=== PATIENT | male | born 1955 | race Caucasian/White ===

== ENCOUNTER 2020-12-12 11:15 | Inpatient (IN) | payer OTHER, SELFPAY ==
--- NOTE | ~2020-12-12 | XR_ITS ---
EXAMINATION: XR FOOT, LEFT CLINICAL INFORMATION: 4 torn. COMPARISON: None TECHNIQUE: AP, lateral, and oblique views of the left foot. FINDINGS: There is moderate hallux valgus deformity first digit with subluxation. There is a lucency and periosteal thickening and periosteal erosion dorsal distal first metatarsal with moderate soft tissue swelling suggestive of osteomyelitis. There is diffuse periosteal thickening involving the entire first metatarsal bone as well. There are small calcaneal heel spur. Rest of visualized left foot is unremarkable. XR/XR foot LT 2V IMPRESSION: Extremely suspicious of osteomyelitis left distal first metatarsal with moderate soft tissue swelling. There is hallux valgus deformity with subluxation first MTP joint.
--- NOTE | ~2020-12-12 | XR_ITS ---
EXAMINATION: XR CHEST CLINICAL INFORMATION: Fluid overload COMPARISON: None TECHNIQUE: Frontal portable view of the chest was obtained. 4:43 PM FINDINGS: Status post median sternotomy. Heart size is normal. Cardiac mediastinal contours are normal. Lungs are normally aerated. No pulmonary vascular congestion. There is no pleural effusion. There is no pneumothorax. Orthopedic anchors in the left humeral head. Multilevel degenerative spondylosis spine. XR/XR chest 1V IMPRESSION: No acute abnormality of the chest.
[2020-12-12 11:26] VITALS: BP 161/81; PULSE 60; RESP 18; TEMP 36.8; O2SAT 100; BMI 19.6
[2020-12-12 11:46] LABS: Glucose, Whole Blood 326 mg/dL (60-115)
[2020-12-12 14:26] VITALS: BP 157/81; PULSE 57; RESP 16; O2SAT 100
--- NOTE | 2020-12-12 14:32 | ED.GENADULT ---
HPI - General Adult General Chief complaint: Extremity Injury, Lower Stated complaint: foot olser Time Seen by Provider: 12/12/20 15:06 Source: patient Mode of arrival: ambulatory Limitations: no limitations History of Present Illness HPI narrative: Patient presents to ED for ulcer on left big toe that has increased in size the past couple of days. Patient states no fever or chills. Patient states increased area of surrounding redness. Related Data Home Medications Medication Instructions Recorded Confirmed aspirin 81 mg tablet,delayed 81 mg PO BEDTIME 12/12/20 12/12/20 release atorvastatin 20 mg tablet 20 mg PO DAILY 12/12/20 12/12/20 blood-glucose meter #1 ea 12/12/20 12/12/20 lancets 28 gauge #100 ea 12/12/20 12/12/20 metoprolol succinate 50 mg 50 mg PO DAILY 12/12/20 12/12/20 tablet,extended release 24 hr multivitamin 1 tab PO DAILY 12/12/20 12/12/20 pen needle, diabetic 31 gauge x #50 ea 12/12/20 12/12/2010/07 Previous Rx's Medication Instructions Recorded insulin glargine 100 unit/mL (3 6 unit SUBCUT BEDTIME 30 Days #1.8 12/12/20 mL) subcutaneous pen ml Allergies Allergy/AdvReac Type Severity Reaction Status Date / Time No Known Allergies Allergy Verified 12/12/20 10:05 Review of Systems Review of Systems: Yes all other systems are reviewed and are negative Constitutional: Constitutional: Reports as per HPI and Reports no additional constitutional complaints Eyes: Eyes: Reports as per HPI and Reports no additional eye complaints ENT: Reports system reviewed and no additional complaints, except as documented and Reports as per HPI Cardiovascular: Cardiovascular: Reports as per HPI and Reports no additional cardiovascular complaints Respiratory: Respiratory: Reports as per HPI and Reports no additional respiratory complaints Gastrointestinal: Gastrointestinal: Reports as per HPI and Reports no additional gastrointestinal complaints Genitourinary: Genitourinary: Reports no additional male genitourinary complaints and Reports as per HPI Musculoskeletal: Musculoskeletal: Reports no additional musculoskeletal complaints Comments: left foot ulcer Neurologic: Reports system reviewed and no additional complaints, except as documented and Reports as per HPI [facility] Past Medical History Medical History Bunion CAD (coronary artery disease) Cataracts, bilateral Diabetes Hearing difficulty Heart attack High cholesterol Hypertension Neuropathy Surgical History H/O heart bypass surgery H/O rotator cuff surgery Social History Social History Alcohol intake: current Alcohol intake frequency: 0-2 drinks per day Smoking Status: Former smoker Advance Directives: No Advance Directives Information Provided: Yes Physical Exam Vital Signs: Vital Signs: Last Vital Signs Temp 98.3 F 12/12/20 11:26 Pulse 57 12/12/20 14:26 Resp 16 12/12/20 14:26 BP 157/81 H 12/12/20 14:26 Pulse Ox 100 12/12/20 14:26 Body Mass Index 19.6 Const: General: cooperative, healthy appearing, comfortable, no acute distress, well developed, alert, awake and Physically active Orientation/consciousness: patient oriented x3 HENMT: Head: Yes normal to inspection, Yes No palpable skull fracture present, Yes normocephalic and Yes atraumatic Eyes: General: appearance normal, both eyes and all related structures Neck: Neck: Yes normal visual inspection, Yes full ROM, Yes no lymphadenopathy, Yes no meningeal signs, Yes trachea midline, Yes supple and No tender Chest: Chest palpation & inspection: normal inspection of the chest and normal palpation of entire chest wall Resp: Effort & Inspection: normal respiratory effort and able to speak in complete sentences Auscultation: clear to auscultation bilaterally Cardio: Jugular venous distension: no JVD Heart sounds: S1 normal heart sound present and S2 normal heart sound present GI: Inspection: Yes normal to inspection and No abdominal wall ecchymosis Palpation (GI): Soft to palpation, not firm, nontender, no guarding and not rigid : General: No CVA tenderness and Yes no CVA tenderness Back/Spine/Pelvis: Back: no CVA tenderness, No CVA tenderness and No back tenderness Skin: Other: Left foot ulcer at big toe with surrounding erythema small yellow drainage and foul odor. pedal pulses intact and neuro exam intact. Neuro: General: patient oriented x3, no meningeal signs and CN's II-XI intact bilaterally Cranial nerves: Yes CN's II-XII intact bilaterally Extrem: General: Yes normal to inspection and Yes full ROM Psych: Appearance: grossly normal, well kempt and not disheveled Course Course Course Narrative: Patient will have labs including x-ray to rule out osteomyelitis. Patient not in any distress Reevaluation(s) Reevaluation #1: X-ray came back positive for osteomyelitis. Patient started antibiotics. Case discussed with hospitalist who states he will come evaluate patient. Reevaluation #2: Patient has elevated ESR CRP. Lactic 2.5. Fluids ordered. Patient evaluated by Dr. Cole. Patient admitted to hospital for osteomyelitis/diabetic foot. Medical Decision Making MDM Narrative Medical decision making narrative: Type osteomyelitis Lab Data Result diagrams: 12/12/20 14:38 12/12/20 14:37 Labs: Lab Results 12/12/20 12/12/20 12/12/20 Range/Units 11:43 14:21 14:37 WBC (4.8-10.8) X10*3/uL RBC (4.60-5.80) X10*6/uL Hgb (14.0-18.0) g/dl Hct (42-52) % MCV (80-98) fL MCH (27.0-33.0) pg MCHC (31.0-36.0) g/dl RDW (11.0-16.0) % Plt Count (160-400) X10*3/uL MPV (9.4-12.4) fL Immature Gran % (Auto) (0.0-0.4) % Neut % (Auto) (45-73) % Lymph % (Auto) (20-40) % [place] % (Auto) (2-11) % Eos % (Auto) (0-4) % Baso % (Auto) (0-2) % Lymph # (Auto) (1.2-4.9) X10*3/uL [place] # (Auto) (0.1-1.2) X10*3/uL Eos # (Auto) (0.0-0.4) X10*3/uL Baso # (Auto) (0.0-0.2) X10*3/uL Abs Immat Gran (auto) (0.00-0.03) X10*3/uL Absolute Neuts (auto) (2.0-8.3) X10*3/uL Absolute Nucleated RBC (0.0-0.012) X10*3/uL Nucleated RBC % (auto) (0.0-0.2) /100WBC ESR 67 H (0-15) MM/HR PT (10.8-13.0) SEC INR (0.9-1.1) APTT (24.1-38.0) SEC Sodium (135-145) mmol/L Potassium (3.3-5.1) mmol/L Chloride (96-108) mmol/L Carbon Dioxide (22-29) mmol/L Anion Gap (12-20) BUN (9-16) mg/dL Creatinine (0.5-1.4) mg/dL Estim Creat Clear Calc Estimated GFR POC Glucose 326 H 346 H (60-115) mg/dL Random Glucose (60-115) mg/dL Lactic Acid (0.5-2.0) mmol/L Calcium (8.4-10.2) mg/dL Total Bilirubin (0.0-1.0) mg/dL AST (5-37) U/L ALT (0-40) U/L Alkaline Phosphatase (39-117) U/L C-Reactive Protein (< or = 0.50) mg/dL Total Protein (6.5-8.0) g/dL Albumin (3.5-5.0) g/dL COVID-19 (AMELIE) (Negative) COVID-19 Clin Com 12/12/20 12/12/20 12/12/20 Range/Units 14:37 14:37 14:37 WBC (4.8-10.8) X10*3/uL RBC (4.60-5.80) X10*6/uL Hgb (14.0-18.0) g/dl Hct (42-52) % MCV (80-98) fL MCH (27.0-33.0) pg MCHC (31.0-36.0) g/dl RDW (11.0-16.0) % Plt Count (160-400) X10*3/uL MPV (9.4-12.4) fL Immature Gran % (Auto) (0.0-0.4) % Neut % (Auto) (45-73) % Lymph % (Auto) (20-40) % [place] % (Auto) (2-11) % Eos % (Auto) (0-4) % Baso % (Auto) (0-2) % Lymph # (Auto) (1.2-4.9) X10*3/uL [place] # (Auto) (0.1-1.2) X10*3/uL Eos # (Auto) (0.0-0.4) X10*3/uL Baso # (Auto) (0.0-0.2) X10*3/uL Abs Immat Gran (auto) (0.00-0.03) X10*3/uL Absolute Neuts (auto) (2.0-8.3) X10*3/uL Absolute Nucleated RBC (0.0-0.012) X10*3/uL Nucleated RBC % (auto) (0.0-0.2) /100WBC ESR (0-15) MM/HR PT 11.9 (10.8-13.0) SEC INR 1.0 (0.9-1.1) APTT 31.6 (24.1-38.0) SEC Sodium 133 L (135-145) mmol/L Potassium 4.2 (3.3-5.1) mmol/L Chloride 99 (96-108) mmol/L Carbon Dioxide 24 (22-29) mmol/L Anion Gap 14 (12-20) BUN 13 (9-16) mg/dL Creatinine 1.64 H (0.5-1.4) mg/dL Estim Creat Clear Calc 41.1 Estimated GFR 43 POC Glucose (60-115) mg/dL Random Glucose 361 H* (60-115) mg/dL Lactic Acid 2.5 H* (0.5-2.0) mmol/L Calcium 8.4 (8.4-10.2) mg/dL Total Bilirubin 0.9 (0.0-1.0) mg/dL AST 39 H (5-37) U/L ALT 40 (0-40) U/L Alkaline Phosphatase 153 H (39-117) U/L C-Reactive Protein 1.96 H (< or = 0.50) mg/dL Total Protein 6.5 (6.5-8.0) g/dL Albumin 2.7 L (3.5-5.0) g/dL COVID-19 (AMELIE) (Negative) COVID-19 Clin Com 12/12/20 12/12/20 Range/Units 14:38 15:43 WBC 7.9 (4.8-10.8) X10*3/uL RBC 2.95 L (4.60-5.80) X10*6/uL Hgb 9.4 L (14.0-18.0) g/dl Hct 29.5 L (42-52) % MCV 100.0 H (80-98) fL MCH 31.9 (27.0-33.0) pg MCHC 31.9 (31.0-36.0) g/dl RDW 16.2 H (11.0-16.0) % Plt Count 277 (160-400) X10*3/uL MPV 9.5 (9.4-12.4) fL Immature Gran % (Auto) 0.6 H (0.0-0.4) % Neut % (Auto) 74.6 H (45-73) % Lymph % (Auto) 17.6 L (20-40) % [place] % (Auto) 6.6 (2-11) % Eos % (Auto) 0.1 (0-4) % Baso % (Auto) 0.5 (0-2) % Lymph # (Auto) 1.4 (1.2-4.9) X10*3/uL [place] # (Auto) 0.5 (0.1-1.2) X10*3/uL Eos # (Auto) 0.0 (0.0-0.4) X10*3/uL Baso # (Auto) 0.0 (0.0-0.2) X10*3/uL Abs Immat Gran (auto) 0.05 H (0.00-0.03) X10*3/uL Absolute Neuts (auto) 5.9 (2.0-8.3) X10*3/uL Absolute Nucleated RBC 0.000 (0.0-0.012) X10*3/uL Nucleated RBC % (auto) 0.0 (0.0-0.2) /100WBC ESR (0-15) MM/HR PT (10.8-13.0) SEC INR (0.9-1.1) APTT (24.1-38.0) SEC Sodium (135-145) mmol/L Potassium (3.3-5.1) mmol/L Chloride (96-108) mmol/L Carbon Dioxide (22-29) mmol/L Anion Gap (12-20) BUN (9-16) mg/dL Creatinine (0.5-1.4) mg/dL Estim Creat Clear Calc Estimated GFR POC Glucose (60-115) mg/dL Random Glucose (60-115) mg/dL Lactic Acid (0.5-2.0) mmol/L Calcium (8.4-10.2) mg/dL Total Bilirubin (0.0-1.0) mg/dL AST (5-37) U/L ALT (0-40) U/L Alkaline Phosphatase (39-117) U/L C-Reactive Protein (< or = 0.50) mg/dL Total Protein (6.5-8.0) g/dL Albumin (3.5-5.0) g/dL COVID-19 (AMELIE) Negative (Negative) COVID-19 Clin Com See Note Discharge Plan Discharge Clinical Impression: Osteomyelitis Patient Disposition: Admitted As Inpatient
[2020-12-12 14:43] LABS: Glucose, Whole Blood 346 mg/dL (60-115)
[2020-12-12 14:47] LABS: MANUAL DIFF FLAG NO
[2020-12-12 14:49] LABS: Basophils Percent Auto 0.5 % (0-2); Eosinophils Percent Auto 0.1 % (0-4); Hematocrit 29.5 % (42-52); Hemoglobin 9.4 g/dl (14.0-18.0); Imm Gran Abs Auto 0.05 X10*3/uL (0.00-0.03); Imm Gran Pct Auto 0.6 % (0.0-0.4); Lymphocytes Absolute Auto 1.4 X10*3/uL (1.2-4.9); Lymphocytes Percent Auto 17.6 % (20-40); Mean Corpuscular HGB Conc 31.9 g/dl (31.0-36.0); Mean Corpuscular Hemoglobin 31.9 pg (27.0-33.0); Mean Platelet Volume 9.5 fL (9.4-12.4); Monocytes Absolute Auto 0.5 X10*3/uL (0.1-1.2); Monocytes Percent Auto 6.6 % (2-11); Neutrophils Absolute Auto 5.9 X10*3/uL (2.0-8.3); Neutrophils Percent Auto 74.6 % (45-73); Platelet Count 277 X10*3/uL (160-400); Red Blood Count 2.95 X10*6/uL (4.60-5.80); Red Cell Distribution Width 16.2 % (11.0-16.0); White Blood Count 7.9 X10*3/uL (4.8-10.8)
[2020-12-12 14:56] LABS: Prothrombin Time 11.9 SEC (10.8-13.0)
[2020-12-12 14:59] LABS: Partial Thromboplastin Time 31.6 SEC (24.1-38.0)
[2020-12-12] MEDS: Piperacillin Sodium/Tazobactam 3.375 GM in 0.9 % Sodium Chloride 50 ML IV (15:03)
[2020-12-12] MEDS: vancomycin HCL 750 MG in 0.9 % Sodium Chloride 250 ML 265 MG IV (15:03)
[2020-12-12 15:25] LABS: Lactic Acid 2.5 mmol/L (0.5-2.0)
[2020-12-12 15:30] LABS: Erythrocyte Sedimentation Rate 67 MM/HR (0-15)
[2020-12-12 15:32] LABS: Alanine Aminotransferase 40 U/L (0-40); Albumin Level 2.7 g/dL (3.5-5.0); Alkaline Phosphatase 153 U/L (39-117); Anion Gap 14 (12-20); Aspartate Amino Transferase 39 U/L (5-37); Bilirubin Total 0.9 mg/dL (0.0-1.0); Blood Urea Nitrogen 13 mg/dL (9-16); C Reactive Protein 1.96 mg/dL (< or = 0.50); Calcium 8.4 mg/dL (8.4-10.2); Carbon Dioxide 24 mmol/L (22-29); Chloride 99 mmol/L (96-108); Creatinine Clr Calc Pharmacy 41.1; Estimated Glomerular Filt Rate 43; Glucose Random 361 mg/dL (60-115); Potassium 4.2 mmol/L (3.3-5.1); Sodium 133 mmol/L (135-145); Total Protein 6.5 g/dL (6.5-8.0)
[2020-12-12 16:10] LABS: COVID-19 Test Negative (Negative)
[2020-12-12] MEDS: 0.9 % Sodium Chloride 1,000 ML 999 ML IV ×2 (16:17)
--- NOTE | 2020-12-12 16:36 | PM.IMHP ---
History of Present Illness Date of Service: 12/12/20 Chief Complaint: Left big toe ulcer, lower extremity edema A 64 years old male with PMH of CAD post CABG, diabetes on insulin, HLD, neuropathy, alcohol abuse who presents to the hospital from primary care office for worsening left big toe ulcer. The patient reports that he had a breakage at the base of his left big toe almost 6 months ago with an open wound that has been worsening since then. For the last week or so he notes increased warmth, swelling, erythema and tenderness around the area and noticed clear small amount of drainage. He reports chills but denies any documented fever. Report having neuropathy at the bottom of his feet were he cannot feel much. He has a small dry ulcer on the other foot that is not infected. In the emergency an x-ray of the foot was consistent with osteomyelitis diagnosis. Blood work was consistent with lactic acidosis, anemia, kidney injury. The patient usually follow at [facility] and we are trying to get the papers from there. Review of Systems Review of Systems: No fever, but reporting chills and increased weakness No chest pain, palpitation No shortness of breath or coughing No abdominal pain, nausea or vomiting Reports difficulty with urination, hesitancy and urgency Complaining of wound at his left foot [facility] Medical History Bunion CAD (coronary artery disease) Cataracts, bilateral Diabetes Hearing difficulty Heart attack High cholesterol Hypertension Neuropathy Surgical History H/O heart bypass surgery H/O rotator cuff surgery Social History Alcohol intake: current Alcohol intake frequency: 0-2 drinks per day Smoking Status: Former smoker Advance Directives: No Advance Directives Information Provided: Yes Meds Allergies Allergy/AdvReac Type Severity Reaction Status Date / Time No Known Allergies Allergy Verified 12/12/20 10:05 Active Medications: Current Medications Generic Name Dose Route Start Last Admin Trade Name Freq PRN Reason Stop Dose Admin Sodium Chloride 1,000 mls @ 999 mls/hr 12/12/20 16:00 12/12/20 16:17 Ns IV 12/12/20 17:00 999 mls/hr .Q1H1M STA Administration Sodium Chloride 1,000 mls @ 999 mls/hr 12/12/20 16:00 12/12/20 16:17 Ns IV 12/12/20 17:00 999 mls/hr .Q1H1M STA Administration Pharmacy Consult 1 each 12/12/20 15:18 Consult Rx Perform Med Rec MISCELLANE ONCE PRN Consult order Pharmacy Consult 1 each 12/12/20 16:30 Consult Rx Etoh Phenob Dosing MISCELLANE 12/12/20 16:31 ONCE ONE Protocol Home Medications Medication Instructions Recorded Confirmed Last Taken Type aspirin 81 mg tablet,delayed 81 mg PO BEDTIME 12/12/20 12/12/20 12/11/20 History release atorvastatin 20 mg tablet 20 mg PO DAILY 12/12/20 12/12/20 12/12/20 History blood-glucose meter #1 ea 12/12/20 12/12/20 Unknown History lancets 28 gauge #100 ea 12/12/20 12/12/20 Unknown History metoprolol succinate 50 mg 50 mg PO DAILY 12/12/20 12/12/20 12/12/20 History tablet,extended release 24 hr multivitamin 1 tab PO DAILY 12/12/20 12/12/20 12/12/20 History pen needle, diabetic 31 gauge x #50 ea 12/12/20 12/12/20 Unknown History 10/07 Physical Exam Vital Signs and Narrative: Vital Signs: Last Vital Signs Temp 98.3 F 12/12/20 11:26 Pulse 57 12/12/20 14:26 Resp 16 12/12/20 14:26 BP 157/81 H 12/12/20 14:26 Pulse Ox 100 12/12/20 14:26 Body Mass Index 19.6 Const: Other: Constitutional : Alert, oriented, witnessed tremors or chills Neck : Normal inspection, Supple Cardiovascular : RRR, S1 S2, +2 bilateral lower extremity edema, myriam of bypass surgery on chest wall Respiratory : Fair bilateral air entry, no crackles, wheezes or rhonchi Gastrointestinal: soft, lax, Normal bowel sounds, Non tender Skin : Warm/Dry, 1 why 1 cm deep wound in the base of his left big toe surrounded by erythema and warm skin. No drainage noted. Neurological : Alert & oriented x3, No focal deficit Results Labs CBC and Chem 7: 12/12/20 14:38 12/12/20 14:37 Labs: Laboratory Results - last 24 hr 12/12/20 12/12/20 12/12/20 11:43 14:21 14:37 MCV MCH MCHC RDW Plt Count MPV Immature Gran % (Auto) Neut % (Auto) Lymph % (Auto) [place] % (Auto) Eos % (Auto) Baso % (Auto) Lymph # (Auto) [place] # (Auto) Eos # (Auto) Baso # (Auto) Abs Immat Gran (auto) Absolute Neuts (auto) Absolute Nucleated RBC Nucleated RBC % (auto) ESR 67 H PT INR APTT Anion Gap Estim Creat Clear Calc Estimated GFR POC Glucose 326 H 346 H Random Glucose Lactic Acid Calcium Total Bilirubin AST ALT Alkaline Phosphatase C-Reactive Protein Total Protein Albumin COVID-19 (AMELIE) Talking Layers 12/12/20 12/12/20 12/12/20 14:37 14:37 14:37 MCV MCH MCHC RDW Plt Count MPV Immature Gran % (Auto) Neut % (Auto) Lymph % (Auto) [place] % (Auto) Eos % (Auto) Baso % (Auto) Lymph # (Auto) [place] # (Auto) Eos # (Auto) Baso # (Auto) Abs Immat Gran (auto) Absolute Neuts (auto) Absolute Nucleated RBC Nucleated RBC % (auto) ESR PT 11.9 INR 1.0 APTT 31.6 Anion Gap 14 Estim Creat Clear Calc 41.1 Estimated GFR 43 POC Glucose Random Glucose 361 H* Lactic Acid 2.5 H* Calcium 8.4 Total Bilirubin 0.9 AST 39 H ALT 40 Alkaline Phosphatase 153 H C-Reactive Protein 1.96 H Total Protein 6.5 Albumin 2.7 L COVID-19 (AMELIE) [facility] 12/12/20 12/12/20 14:38 15:43 MCV 100.0 H MCH 31.9 MCHC 31.9 RDW 16.2 H Plt Count 277 MPV 9.5 Immature Gran % (Auto) 0.6 H Neut % (Auto) 74.6 H Lymph % (Auto) 17.6 L [place] % (Auto) 6.6 Eos % (Auto) 0.1 Baso % (Auto) 0.5 Lymph # (Auto) 1.4 [place] # (Auto) 0.5 Eos # (Auto) 0.0 Baso # (Auto) 0.0 Abs Immat Gran (auto) 0.05 H Absolute Neuts (auto) 5.9 Absolute Nucleated RBC 0.000 Nucleated RBC % (auto) 0.0 ESR PT INR APTT Anion Gap Estim Creat Clear Calc Estimated GFR POC Glucose Random Glucose Lactic Acid Calcium Total Bilirubin AST ALT Alkaline Phosphatase C-Reactive Protein Total Protein Albumin COVID-19 (AMELIE) Negative COVID-19 Clin Com See Note Imaging Radiologist's Impressions: Impressions Foot X-Ray 12/12/20 11:43 IMPRESSION: Extremely suspicious of osteomyelitis left distal first metatarsal with moderate soft tissue swelling. There is hallux valgus deformity with subluxation first MTP joint. Assessment and Plan (1) Osteomyelitis: Status: Acute (2) Fluid overload: Status: Acute (3) Lactic acidosis: Status: Acute (4) Anemia: Status: Acute A 64 years old male with PMH of CAD post CABG, diabetes on insulin, HLD, neuropathy, alcohol abuse who presents to the hospital from primary care office for worsening left big toe ulcer. Left big toe osteomyelitis Confirmed by x-ray of the foot Start vancomycin and Zosyn renally adjusted dose To get in infection Disease and surgery to evaluate the patient Blood culture pending Lactic acidosis Secondary to osteomyelitis To give IV fluid and monitor for now Fluid overload Noticed on bilateral lower extremities A could be secondary to cardiac origin or liver disease Check BNP, TSH, echo and x-ray of the chest Consider using Lasix Anemia Unclear duration, patient not aware of that Will try to get paperwork from [facility] Check iron studies Hyperglycemia secondary to diabetes type 2 Increase Lantus to 8 units SSI diabetic diet Urgency Evaluate for prostate disease Check urinalysis DVT PPX Lovenox
[2020-12-12 16:45] LABS: Reflex Lactate? Lactic Acid Added
[2020-12-12 16:50] VITALS: BP 149/74; PULSE 51; RESP 16; TEMP 36.6; O2SAT 99
[2020-12-12 16:57] LABS: B Type Natriuretic Peptide 596 pg/mL (<100)
[2020-12-12 17:04] LABS: Iron 47 mcg/dL (45-160); Percent Iron Saturation 25 % (15-50); Total Iron Binding Capacity 185 mcg/dL (228-428); Unsaturated Iron Binding 138 ug/dL
[2020-12-12 17:26] LABS: Ferritin 632 ng/mL (20-250); Thyroid Stimulating Hormone 0.98 uIU/mL (0.32-4.0)
[2020-12-12] MEDS: Folic Acid 1 MG TABLET PO (17:31)
[2020-12-12] MEDS: Thiamine HCL 100 MG TABLET PO (17:31)
[2020-12-12] MEDS: PHENobarbitaL sodium 130 MG/ML VIAL 205 MG IM (17:32)
[2020-12-12 20:06] VITALS: BP 152/79; PULSE 65; RESP 18; TEMP 36.4; O2SAT 100
[2020-12-12] MEDS: PHENobarbitaL sodium 130 MG/ML VIAL 153 MG IM ×2 (20:40→22:40)
[2020-12-12] MEDS: 0.9 % Sodium Chloride Flush 3 ML SYRINGE IVFLUSH (20:41)
[2020-12-12] MEDS: Enoxaparin Sodium 40 MG/0.4 ML SYRINGE SUBCUT (20:41)
[2020-12-12] MEDS: Aspirin Enteric Coated 81 MG TABLET.DR PO (20:42)
[2020-12-12 21:03] LABS: Glucose, Whole Blood 428 mg/dL (60-115)
[2020-12-12 21:08] LABS: ~Lactic Acid-LAB USE ONLY 3.3 mmol/L (0.5-2.0)
[2020-12-12 22:26] LABS: Reflex Lactate? 2 Y
[2020-12-12] MEDS: diphenhydrAMINE HCL 50 MG/ML VIAL 25 MG IVPUSH (22:38)
[2020-12-12] MEDS: Insulin Lispro 100 UNIT/ML 3 ML VIAL 10 UNIT SUBCUT (22:38)
[2020-12-12] MEDS: Insulin Glargine,Hum.rec.anlog 100 UNIT/ML 10 ML VIAL 8 UNIT SUBCUT (22:39)
[2020-12-12] MEDS: Insulin Lispro 100 UNIT/ML 3 ML VIAL SUBCUT (22:39)
[2020-12-12] MEDS: oxyCODONE HCl Immed Release 5 MG TABLET PO (22:41)
[2020-12-12 23:14] LABS: ~Lactic Acid-LAB USE ONLY 1.4 mmol/L (0.5-2.0)
[2020-12-12 23:34] VITALS: BP 95/56; PULSE 62; RESP 18; TEMP 36.6; O2SAT 99
[2020-12-13] VITALS (11 sets, daily range): BP systolic 100–161; BP diastolic 65–79; PULSE 52–90; RESP 16–20; TEMP 36.2–37.1; O2SAT 96–100
[2020-12-13 05:10] LABS: MANUAL DIFF FLAG NO
[2020-12-13 05:22] LABS: Basophils Percent Auto 0.8 % (0-2); Eosinophils Absolute Auto 0.1 X10*3/uL (0.0-0.4); Hematocrit 23.7 % (42-52); Hemoglobin 7.5 g/dl (14.0-18.0); Imm Gran Abs Auto 0.03 X10*3/uL (0.00-0.03); Imm Gran Pct Auto 0.6 % (0.0-0.4); Lymphocytes Absolute Auto 1.8 X10*3/uL (1.2-4.9); Lymphocytes Percent Auto 38.4 % (20-40); Mean Corpuscular HGB Conc 31.6 g/dl (31.0-36.0); Mean Corpuscular Hemoglobin 32.8 pg (27.0-33.0); Mean Corpuscular Volume 103.5 fL (80-98); Mean Platelet Volume 9.9 fL (9.4-12.4); Monocytes Absolute Auto 0.6 X10*3/uL (0.1-1.2); Monocytes Percent Auto 11.9 % (2-11); Neutrophils Absolute Auto 2.3 X10*3/uL (2.0-8.3); Neutrophils Percent Auto 47.3 % (45-73); Platelet Count 199 X10*3/uL (160-400); Red Blood Count 2.29 X10*6/uL (4.60-5.80); Red Cell Distribution Width 16.2 % (11.0-16.0); White Blood Count 4.8 X10*3/uL (4.8-10.8)
[2020-12-13] MEDS: vancomycin HCL 500 MG in 0.9 % Sodium Chloride 100 ML 110 MG IV ×2 (05:36→17:31)
[2020-12-13 05:46] LABS: Anion Gap 10 (12-20); Blood Urea Nitrogen 11 mg/dL (9-16); Calcium 7.5 mg/dL (8.4-10.2); Carbon Dioxide 22 mmol/L (22-29); Chloride 108 mmol/L (96-108); Creatinine Clr Calc Pharmacy 53.1; Estimated Glomerular Filt Rate 57; Glucose Random 83 mg/dL (60-115); Potassium 3.7 mmol/L (3.3-5.1); Sodium 136 mmol/L (135-145)
[2020-12-13 06:06] LABS: Prostate Specific Antigen 0.73 ng/mL (<0.05-4.0)
[2020-12-13 07:37] LABS: Glucose, Whole Blood 69 mg/dL (60-115)
[2020-12-13] MEDS: PHENobarbitaL 15 MG TABLET 45 MG PO ×2 (08:24→20:55)
[2020-12-13] MEDS: 0.9 % Sodium Chloride Flush 3 ML SYRINGE IVFLUSH ×2 (08:24→23:49)
[2020-12-13] MEDS: Metoprolol Succinate ER 50 MG TAB.ER.24H PO (08:24)
[2020-12-13] MEDS: Folic Acid 1 MG TABLET PO (08:25)
[2020-12-13] MEDS: Thiamine HCL 100 MG TABLET PO (08:25)
[2020-12-13] MEDS: Multivitamin TABLET 1 TAB PO (08:25)
[2020-12-13] MEDS: Atorvastatin Calcium 20 MG TABLET PO (08:25)
[2020-12-13] MEDS: Piperacillin Sodium/Tazobactam 3.375 GM in 0.9 % Sodium Chloride 50 ML IV ×3 (08:38→21:05)
--- NOTE | 2020-12-13 11:00 | CA_ITS ---
Transthoracic Echocardiogram Patient (Last, First, Middle): Quentin Lara, Gender: Male Date of : 1955 Age: 64 Procedure Date: 12/13/2020 Procedure Type: Transthoracic Echocardiogram Location: OP Height: 180.34 cm Weight: 63.96 kg BSA: 1.82 m2 Heart Rate: bpm BP: 135 / 75 mmHg Manager User Interface: [facility] MD: Ya Cole MD [employer]: Tung Trimble MD Symptoms: Evaluation for fluid overload Study Quality: Good ECG Rhythm: Sinus Conclusions: - 1. Low normal LV systolic function with pseudonormal filling pattern with regional wall motion abnormality noted 2. Mildly dilated left atrium 3. Mild aortic and mitral regurgitation 4. Mildly dilated aortic root and ascending aorta 5. Normal RV systolic pressure 6. No pericardial effusion Findings Left Ventricle Normal left ventricular cavity size. There is normal left ventricular wall thickness. The left ventricular systolic function is low normal. The visually estimated ejection fraction is between 50-55%. Spectral Doppler is indicative of a pseudonormal filling pattern. E/E prime ratio is between 8 and 15 consistent with indeterminate filling pressures. Wall Motion Rest Echo Findings The basal inferoseptal segment is hypokinetic. The basal inferior and basal inferolateral segments are akinetic. All other scored wall segments showed normal motion. Right Ventricle Normal right ventricular cavity size and systolic function. Atria The left atrium is mildly dilated. There is no evidence of interatrial shunt. The right atrium is normal in size. Aortic Valve Normal aortic valve structure and function. There is no aortic valve stenosis. There is mild aortic valve regurgitation. Mitral Valve Normal mitral valve structure and function. There is mild mitral valve regurgitation. There is no mitral valve stenosis. Pulmonic Valve The pulmonic valve was not well visualized. Tricuspid Valve Normal tricuspid valve structure. There is mild tricuspid valve regurgitation. The right ventricular systolic pressure is normal. The right ventricular systolic pressure is 30 mmHg. Normal right atrial pressure. There is no evidence of pulmonary hypertension. Great Vessels The pulmonary artery was not well visualized. There is mild dilatation of the sinuses of Valsalva and mild dilatation of the ascending aorta. Venous The inferior vena cava is normal in size and collapses greater than 50% with inspiration. Pericardium/Pleural There is no evidence of pericardial effusion. Prior Study Comparison No prior study available for comparison. Measurements 2D Linear Measurements RVIDd: 2.55 RVIDd Index: 1.40 IVSd: 1.05 0.6-0.9/0.6-1.0 cm LVIDd: 5.04 3.9-5.3/4.2-5.9 cm LVIDd Index: 2.77 2.4-3.2/2.2-3.1 cm/m2 LVIDs: 3.68 2.0-3.6 cm LVPWd: 0.89 0.7-1.1 cm Ao Root: 4.30 2.1-3.5 cm LA Diam: 3.70 2.7-3.8/3.0-4.0 cm LAIDs Index: 2.03 1.5-2.3 cm/m2 LV Mass: 220.22 67-162/88-224 g LV Mass Index: 121.00 43-95/49-115 g/m2 LVOT Diam: 2.20 3.0+(-)1.3 cm 2D Systolic Function EF 4C: 51.70 >55% EF 2C: 55.80 >55% EF BiP: 52.50 >55% Mitral Valve MV Pk E: 0.54 MV PK A: 0.37 MV Decel Time: 227.00 E/A: 1.40 E'Lateral: 7.72 E'Medial: 6.20 E/E' Med: 8.60 E/E' Lat: 6.90 MR Vol - PW Dopp: 23.80 MR VTI: 2.38 MR ERO: 10.00 MR Alias Michael: 0.38 MR RAD: 0.50 Aortic Valve AoV Pk Michael: 1.06 AoV Mn Michael: 0.76 AoV VTI: 0.25 AoV Pk Grad: 4.00 Aov Mn Grad: 3.00 ANA Cont.VTI: 3.14 AI Pk Michael: 4.60 AI [place]: 1.29 LVOT LVOT Pk Michael: 0.94 LVOT Mn Michael: 0.59 LVOT VTI: 0.21 LVOT Pk Grad: 4.00 LVOT Mn Grad: 2.00 LVOT Diam: 2.20 LVOT Area: 3.80 Diastolic Function MV Pk E: 0.54 MV Pk A: 0.37 E/A: 1.40 E'Medial: 6.20 E/E' Med: 8.60 E' Laterial: 7.72 E/E' Lat: 6.90 Tricuspid Valve TR Pk Michael: 2.61 TR Pk Grad: 27.00 RA Press: 3.00 RVSP: 30.00 Great Vessels Aorta Ao Root-2D: 4.30 2.0-3.7 cm Sinus of Valsalva: 4.30 2.0-3.5 cm Ao Asc: 4.00 2.1-3.4 cm Ao Arch: 3.10 Updated in Other Vendor System with Status of Final Tung Trimble MD electronically signed on 12/14/2020 1:14:28 PM with status of Final
[2020-12-13 11:25] LABS: Glucose, Whole Blood 177 mg/dL (60-115)
--- NOTE | 2020-12-13 14:58 | P.PNIM_ITS ---
Subjective Subjective Date of Service: 12/13/20 Interval History: the patient was seen and evaluated this morning Laying in bed, feels comfortable today, pain has decreased at the ankle Drop in hemoglobin to 7.5 this morning Denies any fever, chills or shortness of breath No reported other overnight events. Review of Systems No fever, but reporting chills and increased weakness No chest pain, palpitation No shortness of breath or coughing No abdominal pain, nausea or vomiting Reports difficulty with urination, hesitancy and urgency Complaining of wound at his left foot Physical Exam Vital Signs: Vital Signs: Last Vital Signs Temp 98.7 F 12/13/20 14:06 Pulse 59 12/13/20 14:06 Resp 16 12/13/20 14:06 BP 154/79 H 12/13/20 14:06 Pulse Ox 96 12/13/20 12:00 Body Mass Index 19.6 Const: Other: Constitutional : Alert, oriented, witnessed tremors or chills Neck : Normal inspection, Supple Cardiovascular : RRR, S1 S2, +1 bilateral lower extremity edema, myriam of bypass surgery on chest wall Respiratory : Fair bilateral air entry, no crackles, wheezes or rhonchi Gastrointestinal: soft, lax, Normal bowel sounds, Non tender Skin : Warm/Dry, 1 why 1 cm deep wound in the base of his left big toe surround ed by erythema and warm skin. No drainage noted. Neurological : Alert & oriented x3, No focal deficit Objective Data Current Medications Generic Name Dose Route Start Last Admin Trade Name Freq PRN Reason Stop Dose Admin Acetaminophen 650 mg 12/12/20 19:57 Acetaminophen 325 Mg Tablet PO Q6H PRN Pain, Mild (Pain Scale 1-3) Aspirin 81 mg 12/12/20 21:00 12/12/20 20:42 Aspirin Enteric Coated 81 Mg Tablet. PO 81 mg BEDTIME [facility] Administration Atorvastatin Calcium 20 mg 12/13/20 09:00 12/13/20 08:25 Atorvastatin Calcium 20 Mg Tablet PO 20 mg DAILY [facility] Administration Enoxaparin Sodium 40 mg 12/12/20 20:30 12/12/20 20:41 Enoxaparin Sodium 40 Mg/0.4 Ml Syringe SUBCUT 40 mg Q24H [facility] Administration Folic Acid 1 mg 12/12/20 16:50 12/13/20 08:25 Folic Acid 1 Mg Tablet PO 1 mg DAILY [facility] Administration Vancomycin HCl 500 mg/ Sodium 110 mls @ 110 mls/hr 12/13/20 06:00 12/13/20 06:45 Chloride IV Infused Q12H [facility] Infusion Piperacillin Sod/Tazobactam 50 mls @ 100 mls/hr 12/13/20 09:00 12/13/20 09:38 Sod 3.375 gm/ Sodium Chloride IV Infused Q6H [facility] Infusion Insulin Glargine 8 unit 12/12/20 21:00 12/12/20 22:39 Insulin Glargine,Hum.Rec.Anlog 100 Unit/Ml 10 Ml Vial SUBCUT 8 unit BEDTIME [facility] Administration Insulin Human Lispro 0 unit 12/12/20 19:57 12/13/20 11:38 Insulin Lispro 100 Unit/Ml 3 Ml Vial SUBCUT Not Given QIDACHS [facility] Protocol Medication 1 each 12/13/20 09:00 No Benzodiazepines MISCELLANE DAILY [facility] Metoprolol Succinate 50 mg 12/13/20 09:00 12/13/20 08:24 Metoprolol Succinate Er 50 Mg Tab.Er.24h PO 50 mg DAILY [facility] Administration Protocol Multivitamins/Vitamin C 1 tab 12/13/20 09:00 12/13/20 08:25 Multivitamin Tablet PO 1 tab DAILY [facility] Administration Ondansetron HCl 4 mg 12/12/20 19:57 Ondansetron Hcl 4 Mg/2 Ml Vial IVPUSH Q8H PRN Nausea and Vomiting Oxycodone HCl 5 mg 12/12/20 21:48 12/12/20 22:41 Oxycodone Hcl Immed Release 5 Mg Tablet PO 5 mg Q4H PRN Administration Pain, Severe (Pain Scale 7-10) Pharmacy Consult 1 each 12/12/20 15:18 Consult Rx Perform Med Rec MISCELLANE ONCE PRN Consult order Pharmacy Consult 1 each 12/12/20 16:32 Consult Rx Vancomycin Dosing MISCELLANE DAILY PRN Consult order Phenobarbital 45 mg 12/13/20 09:00 12/13/20 08:24 Phenobarbital 15 Mg Tablet PO 12/14/20 21:01 45 mg BID [facility] Administration Phenobarbital 15 mg 12/15/20 09:00 Phenobarbital 15 Mg Tablet PO 12/16/20 21:01 BID [facility] Phenobarbital 15 mg 12/17/20 09:00 Phenobarbital 15 Mg Tablet PO 12/18/20 09:01 DAILY [facility] Sodium Chloride 3 ml 12/13/20 00:00 12/13/20 08:24 0.9 % Sodium Chloride Flush 3 Ml Syringe IVFLUSH 3 ml QSHIFT [facility] Administration Thiamine HCl 100 mg 12/12/20 16:50 12/13/20 08:25 Thiamine Hcl 100 Mg Tablet PO 100 mg DAILY [facility] Administration Labs CBC & Chem 7: 12/13/20 04:34 12/13/20 04:34 Assessment and Plan (1) Osteomyelitis: Status: Acute (2) Fluid overload: Status: Acute (3) Lactic acidosis: Status: Acute (4) Anemia: Status: Acute Assessment and Plan: A 64 years old male with PMH of CAD post CABG, diabetes on insulin, HLD, neuropathy, alcohol abuse who presents to the hospital from primary care office for worsening left big toe ulcer. Left big toe osteomyelitis Confirmed by x-ray of the foot Continue vancomycin and Zosyn renally adjusted dose Pending infection Disease and surgery to evaluate the patient Blood culture pending Lactic acidosis Secondary to osteomyelitis Resolved Fluid overload Noticed on bilateral lower extremities A could be secondary to cardiac origin or liver disease Elevated BNP Pending TSH, echo Normal x-ray of the chest To give Lasix Acute on chronic Anemia Unclear duration, patient not aware of that Previous hemoglobin of 10.7 in June 2020, dropped to 7.5 this morning Pending occult stool Low TIBC Start iron supplement Transfuse a unit of blood today To give Lasix after transfusion To get GI evaluation Hyperglycemia secondary to diabetes type 2 Increase Lantus to 8 units SSI diabetic diet Urgency Evaluate for prostate disease Start tamsulosin Check urinalysis DVT PPX Lovenox
--- NOTE | 2020-12-13 15:22 | PC.NURSE ---
pt has had one unit PRBCs and denies any chest pain, shortness of breath, back pain, chills or fever. He is resting quietly in no distress. Will conitnue to monitor
[2020-12-13] MEDS: Furosemide 20 MG/2 ML VIAL IVPUSH (15:25)
[2020-12-13 16:18] LABS: Glucose, Whole Blood 295 mg/dL (60-115)
--- NOTE | 2020-12-13 17:06 | P.CONGS_ITS ---
History of Present Illness Consult details Consult date: 12/13/20 Reason for consult: other (Osteomyelitis right 1st metatarsal) Requesting physician: Ya Cole Narrative: This is a 64-year-old gentleman who has a history of type 2 diabetes mellitus and an approximately 6 month history of a wound of the right foot. He reports that he tried to take care of it himself, but says that it has been enlarging slowly. He has peripheral neuropathy and decreased sensation in both feet and lower legs, but despite this has had ongoing pain in the right foot radiating up to the right knee. He does not report fever or chills. There has been on going serosanguineous drainage from the wound. He has not had similar problems in the past. He did not have a primary care physician for a period of time, but saw Dr. Rajput yesterday and was advised that the time of his visit to come to the emergency department for further evaluation and treatment of his right foot wound because of concern for infection and osteomyelitis. X-rays were obtained in the emergency department and revealed changes in the right 1st metatarsal head consistent with osteomyelitis. Sedimentation rate was elevated at 67 and CRP was elevated at 1.96. IV antibiotic therapy was initiated and he was admitted for further evaluation and treatment. Review of Systems Constitutional: Constitutional: Denies chills and Denies fever(s) Eyes: Eyes: Reports requires corrective lenses ([place]) ENT: Reports hearing loss Cardiovascular: Cardiovascular: Denies chest pain, Denies palpitations and Reports dyspnea on exertion (Feels tired after climbing 1 flight of stairs) Respiratory: Respiratory: Reports dyspnea on exertion (Feels tired after climbing 1 flight of stairs) Gastrointestinal: Gastrointestinal: Reports no additional gastrointestinal complaints Genitourinary: Genitourinary: Denies dysuria and Reports urinary frequency (Better with improved blood sugar control) Musculoskeletal: Comments: Knee and shoulder pain Endocrine: Endocrine: Denies palpitations Hematologic/Lymphatic: Hematologic/Lymphatic: Reports no additional hematologic/lymphatic complaints [facility] Past Medical History Medical History (Updated 12/13/20 @ 17:26 by Diamond Faulkner MD) Bunion CAD (coronary artery disease) Cataracts, bilateral Diabetes Hearing difficulty Heart attack High cholesterol Hypertension Neuropathy Surgical History Surgical History H/O heart bypass surgery H/O rotator cuff surgery Social History Social History Household Members: Significant Other Housing: Condominium Do you presently have visiting nurse or other home services: No Alcohol intake: never Smoking Status: Former smoker Use of substances other than those prescribed or required for medical reasons: No Substance Use Type: Marijuana Currently Displaying Signs/Symptoms of Drug Intoxication Withdrawal: No Have you been hit, kicked, punched, or otherwise hurt by someone within the past year? If so, by whom?: No Do you feel safe in your current relationship?: No Is there a partner from a previous relationship who is making you feel unsafe now?: No Are you made to feel afraid or neglected: No Advance Directives: No Advance Directives Information Provided: Yes Do you have thoughts of harming others: None Do you have a plan to hurt others: No Plan Recently lost weight without trying: No Eating poorly because of decreased appetite: No Nutrition Risks: No Nutritional Risk Poor oral hygiene: No Meds Allergies Allergy/AdvReac Type Severity Reaction Status Date / Time No Known Allergies Allergy Verified 12/12/20 10:05 Active Medications: Current Medications Generic Name Dose Route Start Last Admin Trade Name Freq PRN Reason Stop Dose Admin Acetaminophen 650 mg 12/12/20 19:57 Acetaminophen 325 Mg Tablet PO Q6H PRN Pain, Mild (Pain Scale 1-3) Aspirin 81 mg 12/12/20 21:00 12/12/20 20:42 Aspirin Enteric Coated 81 Mg Tablet. PO 81 mg BEDTIME [facility] Administration Atorvastatin Calcium 20 mg 12/13/20 09:00 12/13/20 08:25 Atorvastatin Calcium 20 Mg Tablet PO 20 mg DAILY [facility] Administration Enoxaparin Sodium 40 mg 12/12/20 20:30 12/12/20 20:41 Enoxaparin Sodium 40 Mg/0.4 Ml Syringe SUBCUT 40 mg Q24H [facility] Administration Folic Acid 1 mg 12/12/20 16:50 12/13/20 08:25 Folic Acid 1 Mg Tablet PO 1 mg DAILY [facility] Administration Vancomycin HCl 500 mg/ Sodium 110 mls @ 110 mls/hr 12/13/20 06:00 12/13/20 06:45 Chloride IV Infused Q12H [facility] Infusion Piperacillin Sod/Tazobactam 50 mls @ 100 mls/hr 12/13/20 09:00 12/13/20 15:26 Sod 3.375 gm/ Sodium Chloride IV 100 mls/hr Q6H [facility] Administration Insulin Glargine 8 unit 12/12/20 21:00 12/12/20 22:39 Insulin Glargine,Hum.Rec.Anlog 100 Unit/Ml 10 Ml Vial SUBCUT 8 unit BEDTIME [facility] Administration Insulin Human Lispro 0 unit 12/12/20 19:57 12/13/20 11:38 Insulin Lispro 100 Unit/Ml 3 Ml Vial SUBCUT Not Given QIDACHS [facility] Protocol Medication 1 each 12/13/20 09:00 No Benzodiazepines MISCELLANE DAILY [facility] Metoprolol Succinate 50 mg 12/13/20 09:00 12/13/20 08:24 Metoprolol Succinate Er 50 Mg Tab.Er.24h PO 50 mg DAILY [facility] Administration Protocol Multivitamins/Vitamin C 1 tab 12/13/20 09:00 12/13/20 08:25 Multivitamin Tablet PO 1 tab DAILY [facility] Administration Ondansetron HCl 4 mg 12/12/20 19:57 Ondansetron Hcl 4 Mg/2 Ml Vial IVPUSH Q8H PRN Nausea and Vomiting Oxycodone HCl 5 mg 12/12/20 21:48 12/12/20 22:41 Oxycodone Hcl Immed Release 5 Mg Tablet PO 5 mg Q4H PRN Administration Pain, Severe (Pain Scale 7-10) Pharmacy Consult 1 each 12/12/20 15:18 Consult Rx Perform Med Rec MISCELLANE ONCE PRN Consult order Pharmacy Consult 1 each 12/12/20 16:32 Consult Rx Vancomycin Dosing MISCELLANE DAILY PRN Consult order Phenobarbital 45 mg 12/13/20 09:00 12/13/20 08:24 Phenobarbital 15 Mg Tablet PO 12/14/20 21:01 45 mg BID [facility] Administration Phenobarbital 15 mg 12/15/20 09:00 Phenobarbital 15 Mg Tablet PO 12/16/20 21:01 BID [facility] Phenobarbital 15 mg 12/17/20 09:00 Phenobarbital 15 Mg Tablet PO 12/18/20 09:01 DAILY [facility] Sodium Chloride 3 ml 12/13/20 00:00 12/13/20 15:50 0.9 % Sodium Chloride Flush 3 Ml Syringe IVFLUSH Not Given QSHIFT [facility] Tamsulosin HCl 0.4 mg 12/13/20 17:30 Tamsulosin Hcl 0.4 Mg Capsule PO DAILY@1730 [facility] Thiamine HCl 100 mg 12/12/20 16:50 12/13/20 08:25 Thiamine Hcl 100 Mg Tablet PO 100 mg DAILY [facility] Administration Home Medications Medication Instructions Recorded Confirmed Last Taken Type aspirin 81 mg tablet,delayed 81 mg PO BEDTIME 12/12/20 12/12/20 12/11/20 History release atorvastatin 20 mg tablet 20 mg PO DAILY 12/12/20 12/12/20 12/12/20 History blood-glucose meter #1 ea 12/12/20 12/12/20 Unknown History lancets 28 gauge #100 ea 12/12/20 12/12/20 Unknown History metoprolol succinate 50 mg 50 mg PO DAILY 12/12/20 12/12/20 12/12/20 History tablet,extended release 24 hr multivitamin 1 tab PO DAILY 12/12/20 12/12/20 12/12/20 History pen needle, diabetic 31 gauge x #50 ea 12/12/20 12/12/20 Unknown History 10/07 Physical Exam Vital Signs: Vital Signs: Last Vital Signs Temp 97.9 F 12/13/20 16: Pulse 52 12/13/20 16:21 Resp 18 12/13/20 16:21 BP 144/74 H 12/13/20 16:21 Pulse Ox 99 12/13/20 16:21 Body Mass Index 19.6 Const: General: cooperative, comfortable and no acute distress HENMT: Head: Yes normocephalic and Yes atraumatic Eyes: EOM: EOMs intact bilaterally Resp: Effort & Inspection: normal respiratory effort Auscultation: clear to auscultation bilaterally Cardio: Rate: regular rate Rhythm: regular rhythm Peripheral pulses: popliteal pulses present on the left 3+, posterior tibial pulses present on the right 2+; not on the left and dorsalis pedis present on the right 2+; not on te left Extrem: Other: Left lower leg and foot are cool and pedal pulses are not p alpable, but there is a bounding left popliteal pulse. Right foot warm with moderate erythema and edema involving medial aspect of distal foot, open wound over dorsal and medial aspect 1st metatarsal head generally clean and granulating with some hypergranulation present. Wound measures 1.4 x 2.7 cm. No exposed bone. Results Labs Result diagrams: 12/13/20 04:34 12/13/20 04:34 Labs: Abnormal lab results 12/12/20 12/12/20 12/12/20 Range/Units 11:43 14:21 14:37 RBC (4.60-5.80) X10*6/uL Hgb (14.0-18.0) g/dl Hct (42-52) % MCV (80-98) fL RDW (11.0-16.0) % Immature Gran % (Auto) (0.0-0.4) % [place] % (Auto) (2-11) % Anion Gap (12-20) POC Glucose 326 H 346 H (60-115) mg/dL Lactic Acid Fup @ 2Hr (0.5-2.0) mmol/L Calcium (8.4-10.2) mg/dL Ferritin 632 H (20-250) ng/mL Crossmatch 12/12/20 12/12/20 12/13/20 Range/Units 20:23 20:55 04:34 RBC 2.29 L D (4.60-5.80) X10*6/uL Hgb 7.5 L D (14.0-18.0) g/dl Hct 23.7 L (42-52) % MCV 103.5 H (80-98) fL RDW 16.2 H (11.0-16.0) % Immature Gran % (Auto) 0.6 H (0.0-0.4) % [place] % (Auto) 11.9 H (2-11) % Anion Gap (12-20) POC Glucose 428 H* (60-115) mg/dL Lactic Acid Fup @ 2Hr 3.3 H* (0.5-2.0) mmol/L Calcium (8.4-10.2) mg/dL Ferritin (20-250) ng/mL Crossmatch 12/13/20 12/13/20 12/13/20 Range/Units 04:34 10:41 11:16 RBC (4.60-5.80) X10*6/uL Hgb (14.0-18.0) g/dl Hct (42-52) % MCV (80-98) fL RDW (11.0-16.0) % Immature Gran % (Auto) (0.0-0.4) % [place] % (Auto) (2-11) % Anion Gap 10 L (12-20) POC Glucose 177 H (60-115) mg/dL Lactic Acid Fup @ 2Hr (0.5-2.0) mmol/L Calcium 7.5 L D (8.4-10.2) mg/dL Ferritin (20-250) ng/mL Crossmatch See Detail 12/13/20 Range/Units 16:11 RBC (4.60-5.80) X10*6/uL Hgb (14.0-18.0) g/dl Hct (42-52) % MCV (80-98) fL RDW (11.0-16.0) % Immature Gran % (Auto) (0.0-0.4) % [place] % (Auto) (2-11) % Anion Gap (12-20) POC Glucose 295 H (60-115) mg/dL Lactic Acid Fup @ 2Hr (0.5-2.0) mmol/L Calcium (8.4-10.2) mg/dL Ferritin (20-250) ng/mL Crossmatch Short CBC 12/13/20 Range/Units 04:34 WBC 4.8 (4.8-10.8) X10*3/uL Hgb 7.5 L D (14.0-18.0) g/dl Hct 23.7 L (42-52) % Plt Count 199 D (160-400) X10*3/uL BMP 12/13/20 04:34 Sodium 136 Potassium 3.7 Chloride 108 Carbon Dioxide 22 BUN 11 Creatinine 1.27 Calcium 7.5 L D All other labs normal. Assessment and Plan (1) Osteomyelitis: Status: Acute (2) Chronic ulcer of right foot: Status: Inactive (3) Chronic diabetic ulcer of right foot determined by examination: Status: Acute 64-year-old male with diabetes mellitus, peripheral neuropathy and chronic ulceration overlying the right 1st metatarsal head with underlying osteomyelitis. Recommend local wound care, initially with silver alginate dressings and long-term antibiotic treatment for osteomyelitis. Discussed with him. Case also reviewed with Dr. Schuster. Awaiting further recommendations from her regarding antibiotic treatment. Procedures Date of Service Date of Service: 12/13/20
[2020-12-13] MEDS: Insulin Lispro 100 UNIT/ML 3 ML VIAL SUBCUT ×2 (17:26→20:56)
[2020-12-13] MEDS: Tamsulosin HCL 0.4 MG CAPSULE PO (17:31)
[2020-12-13 20:34] LABS: Glucose, Whole Blood 417 mg/dL (60-115)
[2020-12-13] MEDS: Aspirin Enteric Coated 81 MG TABLET.DR PO (20:54)
[2020-12-13] MEDS: Omeprazole 40 MG CAPSULE.DR PO (20:54)
[2020-12-13] MEDS: oxyCODONE HCl Immed Release 5 MG TABLET PO (20:55)
[2020-12-13] MEDS: Insulin Glargine,Hum.rec.anlog 100 UNIT/ML 10 ML VIAL 8 UNIT SUBCUT (20:56)
[2020-12-13] MEDS: Insulin Lispro 100 UNIT/ML 3 ML VIAL 10 UNIT SUBCUT (20:56)
--- NOTE | 2020-12-13 23:08 | W.PM.IDCN ---
History of Present Illness Data of Consult Service Date: 12/13/20 Requesting physician: Ya Cole Primary Care Provider: MD CARLITOS Bautista Reason for consult: osteomyelitis left great toe He presentst to hospital with left great toe discomfort and swelling He has left great toe osteomyelits He has had one and a half weeks swelling Review of Systems Review of Systems: Yes all other systems are reviewed and are negative [facility] Past Medical History Medical History (Updated 12/15/20 @ 12:32 by Alyssia Schuster MD) Bunion CAD (coronary artery disease) Cataracts, bilateral Diabetes Hearing difficulty Heart attack High cholesterol Hypertension Neuropathy Osteomyelitis of left foot Family History Family history: reviewed and not pertinent Surgical History Surgical History H/O heart bypass surgery H/O rotator cuff surgery Social History Social History Household Members: Significant Other [facility] Do you presently have visiting nurse or other home services: No Alcohol intake: never Smoking Status: Former smoker Substance Use Type: Marijuana service: No Current occupational status: unemployed Meds Allergies Allergy/AdvReac Type Severity Reaction Status Date / Time No Known Allergies Allergy Verified 12/12/20 10:05 Active Medications: Current Medications Generic Name Dose Route Start Last Admin Trade Name Freq PRN Reason Stop Dose Admin Acetaminophen 650 mg 12/12/20 19:57 Acetaminophen 325 Mg Tablet PO Q6H PRN Pain, Mild (Pain Scale 1-3) Aspirin 81 mg 12/12/20 21:00 12/13/20 20:54 Aspirin Enteric Coated 81 Mg Tablet. PO 81 mg BEDTIME [facility] Administration Atorvastatin Calcium 20 mg 12/13/20 09:00 12/13/20 08:25 Atorvastatin Calcium 20 Mg Tablet PO 20 mg DAILY [facility] Administration Folic Acid 1 mg 12/12/20 16:50 12/13/20 08:25 Folic Acid 1 Mg Tablet PO 1 mg DAILY [facility] Administration Vancomycin HCl 500 mg/ Sodium 110 mls @ 110 mls/hr 12/13/20 06:00 12/13/20 18:45 Chloride IV Infused Q12H [facility] Infusion Piperacillin Sod/Tazobactam 50 mls @ 100 mls/hr 12/13/20 09:00 12/13/20 21:46 Sod 3.375 gm/ Sodium Chloride IV Infused Q6H [facility] Infusion Insulin Glargine 8 unit 12/12/20 21:00 12/13/20 20:56 Insulin Glargine,Hum.Rec.Anlog 100 Unit/Ml 10 Ml Vial SUBCUT 8 unit BEDTIME [facility] Administration Insulin Human Lispro 0 unit 12/12/20 19:57 12/13/20 20:56 Insulin Lispro 100 Unit/Ml 3 Ml Vial SUBCUT 10 unit QIDACHS [facility] Administration Protocol Medication 1 each 12/13/20 09:00 No Benzodiazepines MISCELLANE DAILY [facility] Metoprolol Succinate 50 mg 12/13/20 09:00 12/13/20 08:24 Metoprolol Succinate Er 50 Mg Tab.Er.24h PO 50 mg DAILY [facility] Administration Protocol Multivitamins/Vitamin C 1 tab 12/13/20 09:00 12/13/20 08:25 Multivitamin Tablet PO 1 tab DAILY [facility] Administration Omeprazole 40 mg 12/13/20 17:45 12/13/20 20:54 Omeprazole 40 Mg Capsule.Dr PO 40 mg BID@1934,8650 [facility] Administration Ondansetron HCl 4 mg 12/12/20 19:57 Ondansetron Hcl 4 Mg/2 Ml Vial IVPUSH Q8H PRN Nausea and Vomiting Oxycodone HCl 5 mg 12/12/20 21:48 12/13/20 20:55 Oxycodone Hcl Immed Release 5 Mg Tablet PO 5 mg Q4H PRN Administration Pain, Severe (Pain Scale 7-10) Pharmacy Consult 1 each 12/12/20 15:18 Consult Rx Perform Med Rec MISCELLANE ONCE PRN Consult order Pharmacy Consult 1 each 12/12/20 16:32 Consult Rx Vancomycin Dosing MISCELLANE DAILY PRN Consult order Phenobarbital 45 mg 12/13/20 09:00 12/13/20 20:55 Phenobarbital 15 Mg Tablet PO 12/14/20 21:01 45 mg BID [facility] Administration Phenobarbital 15 mg 12/15/20 09:00 Phenobarbital 15 Mg Tablet PO 12/16/20 21:01 BID [facility] Phenobarbital 15 mg 12/17/20 09:00 Phenobarbital 15 Mg Tablet PO 12/18/20 09:01 DAILY [facility] Sodium Chloride 3 ml 12/13/20 00:00 12/13/20 15:50 0.9 % Sodium Chloride Flush 3 Ml Syringe IVFLUSH Not Given QSHIFT [facility] Tamsulosin HCl 0.4 mg 12/13/20 17:30 12/13/20 17:31 Tamsulosin Hcl 0.4 Mg Capsule PO 0.4 mg DAILY@1730 [facility] Administration Thiamine HCl 100 mg 12/12/20 16:50 12/13/20 08:25 Thiamine Hcl 100 Mg Tablet PO 100 mg DAILY [facility] Administration Home Medications Medication Instructions Recorded Confirmed Last Taken Type aspirin 81 mg tablet,delayed 81 mg PO BEDTIME 12/12/20 12/12/20 12/11/20 History release atorvastatin 20 mg tablet 20 mg PO DAILY 12/12/20 12/12/20 12/12/20 History blood-glucose meter #1 ea 12/12/20 12/12/20 Unknown History lancets 28 gauge #100 ea 12/12/20 12/12/20 Unknown History metoprolol succinate 50 mg 50 mg PO DAILY 12/12/20 12/12/20 12/12/20 History tablet,extended release 24 hr multivitamin 1 tab PO DAILY 12/12/20 12/12/20 12/12/20 History pen needle, diabetic 31 gauge x #50 ea 12/12/20 12/12/20 Unknown History 10/07 Physical Exam Vital Signs: Vital Signs: Last Vital Signs Temp 98.2 F 12/13/20 19:33 Pulse 57 12/13/20 19:33 Resp 18 12/13/20 19:33 BP 139/73 12/13/20 19:33 Pulse Ox 99 12/13/20 19:33 Body Mass Index 19.6 Const: General: cooperative HENMT: Head: Yes normal to inspection Mouth: Normal oral and palatal mucosa present Resp: Effort & Inspection: normal respiratory effort Cardio: Rate: regular rate Rhythm: regular rhythm GI: Palpation (GI): Soft to palpation and nontender Extrem: Other: left great toe swelling Results Labs CBC & Chem 7: 12/15/20 05:35 12/15/20 05:34 Labs: Short CBC 12/13/20 Range/Units 04:34 WBC 4.8 (4.8-10.8) X10*3/uL Hgb 7.5 L D (14.0-18.0) g/dl Hct 23.7 L (42-52) % Plt Count 199 D (160-400) X10*3/uL BMP 12/13/20 04:34 Sodium 136 Potassium 3.7 Chloride 108 Carbon Dioxide 22 BUN 11 Creatinine 1.27 Calcium 7.5 L D Microbiology Microbiology Results: Microbiology 12/12/20 14:37 Blood - Venous Blood Culture - Preliminary No growth after 24 hours. 12/12/20 14:37 Blood - Venous Blood Culture - Preliminary No growth after 24 hours. Assessment and Plan (1) Osteomyelitis of left foot: Status: Acute There is osteomyelitis foot Ertapenem for 6 weeks if culture unremarkable or Vancomycin for 6 weeks if MRSA
[2020-12-14] MEDS: Piperacillin Sodium/Tazobactam 3.375 GM in 0.9 % Sodium Chloride 50 ML IV ×4 (03:13→21:07)
[2020-12-14 03:28] VITALS: BP 103/60; PULSE 61; RESP 18; TEMP 36.6; O2SAT 99
[2020-12-14 05:47] LABS: Vancomycin Trough 7.2 mcg/mL (10.0-20.0)
[2020-12-14] MEDS: vancomycin HCL 500 MG in 0.9 % Sodium Chloride 100 ML 110 MG IV (06:27)
[2020-12-14] MEDS: Omeprazole 40 MG CAPSULE.DR PO ×2 (06:28→16:46)
[2020-12-14 07:00] LABS: Hematocrit 30.5 % (42-52); Mean Corpuscular HGB Conc 32.8 g/dl (31.0-36.0); Mean Corpuscular Hemoglobin 32.4 pg (27.0-33.0); Mean Corpuscular Volume 98.7 fL (80-98); Mean Platelet Volume 9.6 fL (9.4-12.4); Platelet Count 190 X10*3/uL (160-400); Red Blood Count 3.09 X10*6/uL (4.60-5.80); Red Cell Distribution Width 16.1 % (11.0-16.0); White Blood Count 4.6 X10*3/uL (4.8-10.8)
[2020-12-14 07:16] LABS: Anion Gap 14 (12-20); Blood Urea Nitrogen 12 mg/dL (9-16); Calcium 7.6 mg/dL (8.4-10.2); Carbon Dioxide 22 mmol/L (22-29); Chloride 102 mmol/L (96-108); Creatinine Clr Calc Pharmacy 50.7; Estimated Glomerular Filt Rate 54; Glucose Random 87 mg/dL (60-115); Potassium 3.6 mmol/L (3.3-5.1); Sodium 134 mmol/L (135-145)
[2020-12-14] MEDS: 0.9 % Sodium Chloride Flush 3 ML SYRINGE IVFLUSH ×3 (07:35→21:09)
[2020-12-14 08:00] VITALS: BP 138/83; PULSE 63; RESP 20; TEMP 36.7; O2SAT 100
[2020-12-14 08:06] LABS: Glucose, Whole Blood 102 mg/dL (60-115)
[2020-12-14 08:15] VITALS: BP 138/84; PULSE 65
[2020-12-14] MEDS: Thiamine HCL 100 MG TABLET PO (08:15)
[2020-12-14] MEDS: Metoprolol Succinate ER 50 MG TAB.ER.24H PO (08:15)
[2020-12-14] MEDS: oxyCODONE HCl Immed Release 5 MG TABLET PO ×3 (08:15→19:42)
[2020-12-14] MEDS: PHENobarbitaL 15 MG TABLET 45 MG PO ×2 (08:16→21:08)
[2020-12-14] MEDS: Multivitamin TABLET 1 TAB PO (08:17)
[2020-12-14] MEDS: Atorvastatin Calcium 20 MG TABLET PO (08:17)
[2020-12-14] MEDS: Folic Acid 1 MG TABLET PO (08:18)
[2020-12-14] MEDS: vancomycin HCL 750 MG in 0.9 % Sodium Chloride 250 ML 265 MG IV (08:19)
--- NOTE | 2020-12-14 10:15 | MHC.CM.PN ---
CM MET WITH PT WHO REPORTS HE LIVES WITH HIS S/O, RENAY, AND IS INDEPENDENT WITH ALL CARE AND MOBILITY. PT REPORTS HE HAS A SET OF CRUTCHES, A CANE AND A BOOT AT HOME, BUT DOES NOT REQUIRE DME AT BASELINE. PT REPORTS HE HAS A HCP COMPLETED ALREADY NAMING RENAY HIS AGENT. PT CONFIRMS HIS PCP IS DEVEN TRUJILLO. CURRENT DC PLAN IS HOME WITH NO SERVICES VS HOME WITH [facility] PT WILL SELF ARRANGE TRANSPORT
[2020-12-14 11:15] LABS: Glucose, Whole Blood 116 mg/dL (60-115)
--- NOTE | 2020-12-14 11:17 | P.PNGS_ITS ---
Subjective Subjective Date of Service: 12/14/20 Interval history: He reports that he did not have a good night, was passing a lot of urine. Better this morning. No new complaints referable to his left foot Physical Exam Vital Signs: Vital Signs: Last Vital Signs Temp 98.0 F 12/14/20 08:00 Pulse 65 12/14/20 08:15 Resp 20 12/14/20 08:00 BP 138/84 12/14/20 08:15 Pulse Ox 100 12/14/20 08:00 Body Mass Index 19.6 Const: General: cooperative, no acute distress and alert Extrem: Other: Left foot edema appears stable to slightly improved, slightly improved erythema around dorsum 1st metatarsal head. Open wound over dorsum and medial aspect 1st metatarsal head remains clean was slightly decreased hypergran ulation Progress Note: A&P Assessment and plan (1) Chronic diabetic ulcer of right foot determined by examination: Status: Acute (2) Osteomyelitis: Status: Acute Assessment and Plan: Left foot ulcer appears clean and stable. Continue silver alginate dressings. Osteomyelitis left 1st metatarsal head-continue vancomycin and Zosyn. Await culture results and further recommendations from Dr. Schuster regarding long-term IV antibiotic therapy. Will require PICC line for antibiotics at home. Discussed with him. Fall Risk Details Current Medications: Current Medications Generic Name Dose Route Start Last Admin Trade Name Freq PRN Reason Stop Dose Admin Acetaminophen 650 mg 12/12/20 19:57 Acetaminophen 325 Mg Tablet PO Q6H PRN Pain, Mild (Pain Scale 1-3) Aspirin 81 mg 12/12/20 21:00 12/13/20 20:54 Aspirin Enteric Coated 81 Mg Tablet. PO 81 mg BEDTIME [facility] Administration Atorvastatin Calcium 20 mg 12/13/20 09:00 12/14/20 08:17 Atorvastatin Calcium 20 Mg Tablet PO 20 mg DAILY [facility] Administration Folic Acid 1 mg 12/12/20 16:50 12/14/20 08:18 Folic Acid 1 Mg Tablet PO 1 mg DAILY [facility] Administration Piperacillin Sod/Tazobactam 50 mls @ 100 mls/hr 12/13/20 09:00 12/14/20 08:51 Sod 3.375 gm/ Sodium Chloride IV Infused Q6H [facility] Infusion Vancomycin HCl 1,250 mg/ 250 mls @ 166.667 mls/hr 12/15/20 08:00 Sodium Chloride IV Q24H [facility] Insulin Glargine 8 unit 12/12/20 21:00 12/13/20 20:56 Insulin Glargine,Hum.Rec.Anlog 100 Unit/Ml 10 Ml Vial SUBCUT 8 unit BEDTIME [facility] Administration Insulin Human Lispro 0 unit 12/12/20 19:57 12/14/20 08:03 Insulin Lispro 100 Unit/Ml 3 Ml Vial SUBCUT Not Given QIDACHS [facility] Protocol Medication 1 each 12/13/20 09:00 No Benzodiazepines MISCELLANE DAILY [facility] Metoprolol Succinate 50 mg 12/13/20 09:00 12/14/20 08:15 Metoprolol Succinate Er 50 Mg Tab.Er.24h PO 50 mg DAILY [facility] Administration Protocol Multivitamins/Vitamin C 1 tab 12/13/20 09:00 12/14/20 08:17 Multivitamin Tablet PO 1 tab DAILY [facility] Administration Omeprazole 40 mg 12/13/20 17:45 12/14/20 06:28 Omeprazole 40 Mg Capsule.Dr PO 40 mg BID@6018,8525 [facility] Administration Ondansetron HCl 4 mg 12/12/20 19:57 Ondansetron Hcl 4 Mg/2 Ml Vial IVPUSH Q8H PRN Nausea and Vomiting Oxycodone HCl 5 mg 12/12/20 21:48 12/14/20 08:15 Oxycodone Hcl Immed Release 5 Mg Tablet PO 5 mg Q4H PRN Administration Pain, Severe (Pain Scale 7-10) Pharmacy Consult 1 each 12/12/20 15:18 Consult Rx Perform Med Rec MISCELLANE ONCE PRN Consult order Pharmacy Consult 1 each 12/12/20 16:32 Consult Rx Vancomycin Dosing MISCELLANE DAILY PRN Consult order Phenobarbital 45 mg 12/13/20 09:00 12/14/20 08:16 Phenobarbital 15 Mg Tablet PO 12/14/20 21:01 45 mg BID [facility] Administration Phenobarbital 15 mg 12/15/20 09:00 Phenobarbital 15 Mg Tablet PO 12/16/20 21:01 BID [facility] Phenobarbital 15 mg 12/17/20 09:00 Phenobarbital 15 Mg Tablet PO 12/18/20 09:01 DAILY [facility] Sodium Chloride 3 ml 12/13/20 00:00 12/14/20 07:35 0.9 % Sodium Chloride Flush 3 Ml Syringe IVFLUSH 3 ml QSHIFT [facility] Administration Tamsulosin HCl 0.4 mg 12/13/20 17:30 12/13/20 17:31 Tamsulosin Hcl 0.4 Mg Capsule PO 0.4 mg DAILY@1730 [facility] Administration Thiamine HCl 100 mg 12/12/20 16:50 12/14/20 08:15 Thiamine Hcl 100 Mg Tablet PO 100 mg DAILY [facility] Administration Time Spent With Patient Time: Total time spent is greater than 50% in coordination of care (as documented) at patient's floor/unit and/or counseling patient: Time with patient: less than 15 minutes Procedures Date of Service Date of Service: 12/14/20
[2020-12-14 12:00] VITALS: BP 145/77; PULSE 57; RESP 20; TEMP 36.1; O2SAT 100
[2020-12-14] MEDS: Furosemide 40 MG/4 ML VIAL IVPUSH (13:43)
[2020-12-14 15:24] VITALS: BP 108/78; PULSE 70; RESP 18; TEMP 36.7; O2SAT 100
--- NOTE | 2020-12-14 15:40 | PM.GICN ---
History of Present Illness Data of Consult Service Date: 12/14/20 Primary Care Provider: Rufino Rajput MD [facility] Reason for consult: anemia 64 years old male with PMH of CAD post CABG, diabetes on insulin, HLD, neuropathy, alcohol abuse who I am seeing for assessment for anemia, He actually presents with worsening left big toe ulcer with increased warmth, swelling, erythema and tenderness around the area with drainage. He does have peripheral neuropathy at baseline as well. part of work up revealed anemia He denies hematuria, no melena, or rectal bleeding. He has no GERd, dysphagia, weight loss or fevers. he said he had EGD and colonoscopy mayb 5-6 yrs ago, results unknown Imaging suggestive of osteomyelitis. Labs revealed: HGB 7.5, s/p 2 units PRBC with appropriate increase, ferritin 600, irons sat nml, b12/folate pending Review of Systems Review of Systems: No fever, but reporting chills and increased weakness No chest pain, palpitation No shortness of breath or coughing No abdominal pain, nausea or vomiting Reports difficulty with urination, hesitancy and urgency Complaining of wound at his left foot Yes all other systems are reviewed and are negative Constitutional: Constitutional: Reports as per HPI, Reports no additional constitutional complaints, Denies chills and Denies fever(s) Eyes: Eyes: Reports as per HPI, Reports no additional eye complaints and Reports requires corrective lenses ([place]) ENT: Reports system reviewed and no additional complaints, except as documented, Reports as per HPI and Reports hearing loss Cardiovascular: Cardiovascular: Reports as per HPI, Reports no additional cardiovascular complaints, Denies chest pain, Denies palpitations and Reports dyspnea on exertion (Feels tired after climbing 1 flight of stairs) Respiratory: Respiratory: Reports as per HPI, Reports no additional respiratory complaints and Reports dyspnea on exertion (Feels tired after climbing 1 flight of stairs) Gastrointestinal: Gastrointestinal: Reports as per HPI and Reports no additional gastrointestinal complaints Genitourinary: Genitourinary: Reports no additional male genitourinary complaints, Reports as per HPI, Denies dysuria and Reports urinary frequency (Better with improved blood sugar control) Musculoskeletal: Musculoskeletal: Reports no additional musculoskeletal complaints Neurologic: Reports system reviewed and no additional complaints, except as documented and Reports as per HPI Endocrine: Endocrine: Denies palpitations Hematologic/Lymphatic: Hematologic/Lymphatic: Reports no additional hematologic/lymphatic complaints PMFSH Past Medical History Medical History (Updated 12/15/20 @ 12:32 by Alyssia Schuster MD) Bunion CAD (coronary artery disease) Cataracts, bilateral Diabetes Hearing difficulty Heart attack High cholesterol Hypertension Neuropathy Osteomyelitis of left foot Surgical History Surgical History H/O heart bypass surgery H/O rotator cuff surgery Social History Social History Household Members: Significant Other [facility] Do you presently have visiting nurse or other home services: No Alcohol intake: never Smoking Status: Former smoker Substance Use Type: Marijuana service: No Current occupational status: unemployed Meds Allergies Allergy/AdvReac Type Severity Reaction Status Date / Time No Known Allergies Allergy Verified 12/12/20 10:05 Active Medications: Current Medications Generic Name Dose Route Start Last Admin Trade Name Freq PRN Reason Stop Dose Admin Acetaminophen 650 mg 12/12/20 19:57 Acetaminophen 325 Mg Tablet PO Q6H PRN Pain, Mild (Pain Scale 1-3) Aspirin 81 mg 12/12/20 21:00 12/12/20 20:42 Aspirin Enteric Coated 81 Mg Tablet. PO 81 mg BEDTIME [facility] Administration Atorvastatin Calcium 20 mg 12/13/20 09:00 12/13/20 08:25 Atorvastatin Calcium 20 Mg Tablet PO 20 mg DAILY [facility] Administration Enoxaparin Sodium 40 mg 12/12/20 20:30 12/12/20 20:41 Enoxaparin Sodium 40 Mg/0.4 Ml Syringe SUBCUT 40 mg Q24H [facility] Administration Folic Acid 1 mg 12/12/20 16:50 12/13/20 08:25 Folic Acid 1 Mg Tablet PO 1 mg DAILY [facility] Administration Furosemide 20 mg 12/13/20 16:00 12/13/20 15:25 Furosemide 20 Mg/2 Ml Vial IVPUSH 12/13/20 16:01 20 mg ONCE ONE Administration Protocol Vancomycin HCl 500 mg/ Sodium 110 mls @ 110 mls/hr 12/13/20 06:00 12/13/20 06:45 Chloride IV Infused Q12H [facility] Infusion Piperacillin Sod/Tazobactam 50 mls @ 100 mls/hr 12/13/20 09:00 12/13/20 15:26 Sod 3.375 gm/ Sodium Chloride IV 100 mls/hr Q6H [facility] Administration Insulin Glargine 8 unit 12/12/20 21:00 12/12/20 22:39 Insulin Glargine,Hum.Rec.Anlog 100 Unit/Ml 10 Ml Vial SUBCUT 8 unit BEDTIME [facility] Administration Insulin Human Lispro 0 unit 12/12/20 19:57 12/13/20 11:38 Insulin Lispro 100 Unit/Ml 3 Ml Vial SUBCUT Not Given QIDACHS [facility] Protocol Medication 1 each 12/13/20 09:00 No Benzodiazepines MISCELLANE DAILY [facility] Metoprolol Succinate 50 mg 12/13/20 09:00 12/13/20 08:24 Metoprolol Succinate Er 50 Mg Tab.Er.24h PO 50 mg DAILY [facility] Administration Protocol Multivitamins/Vitamin C 1 tab 12/13/20 09:00 12/13/20 08:25 Multivitamin Tablet PO 1 tab DAILY [facility] Administration Ondansetron HCl 4 mg 12/12/20 19:57 Ondansetron Hcl 4 Mg/2 Ml Vial IVPUSH Q8H PRN Nausea and Vomiting Oxycodone HCl 5 mg 12/12/20 21:48 12/12/20 22:41 Oxycodone Hcl Immed Release 5 Mg Tablet PO 5 mg Q4H PRN Administration Pain, Severe (Pain Scale 7-10) Pharmacy Consult 1 each 12/12/20 15:18 Consult Rx Perform Med Rec MISCELLANE ONCE PRN Consult order Pharmacy Consult 1 each 12/12/20 16:32 Consult Rx Vancomycin Dosing MISCELLANE DAILY PRN Consult order Phenobarbital 45 mg 12/13/20 09:00 12/13/20 08:24 Phenobarbital 15 Mg Tablet PO 12/14/20 21:01 45 mg BID [facility] Administration Phenobarbital 15 mg 12/15/20 09:00 Phenobarbital 15 Mg Tablet PO 12/16/20 21:01 BID [facility] Phenobarbital 15 mg 12/17/20 09:00 Phenobarbital 15 Mg Tablet PO 12/18/20 09:01 DAILY [facility] Sodium Chloride 3 ml 12/13/20 00:00 12/13/20 08:24 0.9 % Sodium Chloride Flush 3 Ml Syringe IVFLUSH 3 ml QSHIFT [facility] Administration Tamsulosin HCl 0.4 mg 12/13/20 17:30 Tamsulosin Hcl 0.4 Mg Capsule PO DAILY@1730 [facility] Thiamine HCl 100 mg 12/12/20 16:50 12/13/20 08:25 Thiamine Hcl 100 Mg Tablet PO 100 mg DAILY [facility] Administration Home Medications Medication Instructions Recorded Confirmed Last Taken Type aspirin 81 mg tablet,delayed 81 mg PO BEDTIME 12/12/20 12/12/20 12/11/20 History release atorvastatin 20 mg tablet 20 mg PO DAILY 12/12/20 12/12/20 12/12/20 History blood-glucose meter #1 ea 12/12/20 12/12/20 Unknown History lancets 28 gauge #100 ea 12/12/20 12/12/20 Unknown History metoprolol succinate 50 mg 50 mg PO DAILY 12/12/20 12/12/20 12/12/20 History tablet,extended release 24 hr multivitamin 1 tab PO DAILY 12/12/20 12/12/20 12/12/20 History pen needle, diabetic 31 gauge x #50 ea 12/12/20 12/12/20 Unknown History 10/07 Physical Exam Vital Signs: Vital Signs: Last Vital Signs Temp 98.6 F 12/13/20 14:09 Pulse 53 12/13/20 14:09 Resp 16 12/13/20 14:09 BP 135/74 12/13/20 14:09 Pulse Ox 96 12/13/20 12:00 Body Mass Index 19.6 Const: Other: Constitutional : Alert, oriented, witnessed tremors or chills Neck : Normal inspection, Supple Cardiovascular : RRR, S1 S2, +1 bilateral lower extremity edema, myriam of bypass surgery on chest wall Respiratory : Fair bilateral air entry, no crackles, wheezes or rhonchi Gastrointestinal: soft, lax, Normal bowel sounds, Non tender Skin : Warm/Dry, 1 why 1 cm deep wound in the base of his left big toe surrounded by erythema and warm skin. No drainage noted. Neurological : Alert & oriented x3, No focal deficit General: cooperative, healthy appearing, comfortable, no acute distress, well developed, alert, awake and Physically active Orientation/consciousness: patient oriented x3 HENMT: Head: Yes normal to inspection, Yes No palpable skull fracture present, Yes normocephalic and Yes atraumatic Mouth: Normal oral and palatal mucosa present Eyes: General: appearance normal, both eyes and all related structures EOM: EOMs intact bilaterally Neck: Neck: Yes normal visual inspection, Yes full ROM, Yes no lymphadenopathy, Yes no meningeal signs, Yes trachea midline, Yes supple and No tender Chest: Chest palpation & inspection: normal inspection of the chest and normal palpation of entire chest wall Resp: Effort & Inspection: normal respiratory effort and able to speak in complete sentences Auscultation: clear to auscultation bilaterally Cardio: Jugular venous distension: no JVD Rate: regular rate Rhythm: regular rhythm Heart sounds: S1 normal heart sound present and S2 normal heart sound present Peripheral pulses: dorsalis pedis present GI: Inspection: Yes normal to inspection and No abdominal wall ecchymosis Palpation (GI): Soft to palpation, not firm, nontender, no guarding and not rigid : General: No CVA tenderness and Yes no CVA tenderness Back/Spine/Pelvis: Back: no CVA tenderness, No CVA tenderness and No back tenderness Skin: Other: bandage on left big toe Neuro: General: patient oriented x3, no meningeal signs and CN's II-XI intact bilaterally Cranial nerves: Yes CN's II-XII intact bilaterally Extrem: General: Yes normal to inspection and Yes full ROM Psych: Appearance: grossly normal, well kempt and not disheveled Results Labs CBC & Chem 7: 12/15/20 05:35 12/15/20 05:34 Labs: Short CBC 12/13/20 Range/Units 04:34 WBC 4.8 (4.8-10.8) X10*3/uL Hgb 7.5 L D (14.0-18.0) g/dl Hct 23.7 L (42-52) % Plt Count 199 D (160-400) X10*3/uL BMP 12/13/20 04:34 Sodium 136 Potassium 3.7 Chloride 108 Carbon Dioxide 22 BUN 11 Creatinine 1.27 Calcium 7.5 L D Assessment and Plan (1) Macrocytic anemia: Status: Acute 1/ Macrocytic anemia, maybe due to diet, or chronic anemia from osteomyelitis or bone marrow disease, no overt GI blood loss PLAN: 1/ priority right now is treatment of the osteomyelitis, would defer EGD and colonoscopy to either early outpatient or after few days of ABX therapy. Discussed with primary team. Meantime PPI e.g pantoprazole 40 mg OD and fluid/vol resuscitate, if clinical status changes and he has overt GI bleeding then can change plan accordingly. Procedures Date of Service Date of Service: 12/14/20
[2020-12-14 16:04] LABS: Glucose, Whole Blood 214 mg/dL (60-115)
--- NOTE | 2020-12-14 16:07 | HO.PM.IMPN ---
Subjective Subjective Date of Service: 12/14/20 Interval History: the patient was seen and evaluated this morning Laying in bed, feels comfortable overall but complaining of worsening left ankle pain Hemoglobin increased to 10 after 1 unit transfusion Denies any fever, chills or shortness of breath No reported other overnight events. Review of Systems No fever, but reporting chills and increased weakness No chest pain, palpitation No shortness of breath or coughing No abdominal pain, nausea or vomiting Reports difficulty with urination, hesitancy and urgency Complaining of wound at his left foot Physical Exam Vital Signs: Vital Signs: Last Vital Signs Temp 98.0 F 12/14/20 15:24 Pulse 70 12/14/20 15:24 Resp 18 12/14/20 15:24 BP 108/78 12/14/20 15:24 Pulse Ox 100 12/14/20 15:24 Body Mass Index 19.6 Const: Other: Constitutional : Alert, oriented, witnessed tremors or chills Neck : Normal inspection, Supple Cardiovascular : RRR, S1 S2, +2 bilateral lower extremity edema, myriam of bypass surgery on chest wall Respiratory : Fair bilateral air entry, no crackles, wheezes or rhonchi Gastrointestinal: soft, lax, Normal bowel sounds, Non tender Skin : Warm/Dry, 1 why 1 cm deep wound in the base of his left big toe surrounded by improving erythema and warm skin. No drainage noted. Neurological : Alert & oriented x3, No focal deficit Objective Data Current Medications Generic Name Dose Route Start Last Admin Trade Name Freq PRN Reason Stop Dose Admin Acetaminophen 650 mg 12/12/20 19:57 Acetaminophen 325 Mg Tablet PO Q6H PRN Pain, Mild (Pain Scale 1-3) Aspirin 81 mg 12/12/20 21:00 12/13/20 20:54 Aspirin Enteric Coated 81 Mg Tablet. PO 81 mg BEDTIME [facility] Administration Atorvastatin Calcium 20 mg 12/13/20 09:00 12/14/20 08:17 Atorvastatin Calcium 20 Mg Tablet PO 20 mg DAILY [facility] Administration Folic Acid 1 mg 12/12/20 16:50 12/14/20 08:18 Folic Acid 1 Mg Tablet PO 1 mg DAILY [facility] Administration Piperacillin Sod/Tazobactam 50 mls @ 100 mls/hr 12/13/20 09:00 12/14/20 15:24 Sod 3.375 gm/ Sodium Chloride IV Infused Q6H [facility] Infusion Vancomycin HCl 1,250 mg/ 250 mls @ 166.667 mls/hr 12/15/20 08:00 Sodium Chloride IV Q24H [facility] Insulin Glargine 8 unit 12/12/20 21:00 12/13/20 20:56 Insulin Glargine,Hum.Rec.Anlog 100 Unit/Ml 10 Ml Vial SUBCUT 8 unit BEDTIME [facility] Administration Insulin Human Lispro 0 unit 12/12/20 19:57 12/14/20 11:17 Insulin Lispro 100 Unit/Ml 3 Ml Vial SUBCUT Not Given QIDACHS [facility] Protocol Medication 1 each 12/13/20 09:00 No Benzodiazepines MISCELLANE DAILY [facility] Metoprolol Succinate 50 mg 12/13/20 09:00 12/14/20 08:15 Metoprolol Succinate Er 50 Mg Tab.Er.24h PO 50 mg DAILY [facility] Administration Protocol Multivitamins/Vitamin C 1 tab 12/13/20 09:00 12/14/20 08:17 Multivitamin Tablet PO 1 tab DAILY [facility] Administration Omeprazole 40 mg 12/13/20 17:45 12/14/20 06:28 Omeprazole 40 Mg Capsule.Dr PO 40 mg BID@0630,1630 [facility] Administration Ondansetron HCl 4 mg 12/12/20 19:57 Ondansetron Hcl 4 Mg/2 Ml Vial IVPUSH Q8H PRN Nausea and Vomiting Oxycodone HCl 5 mg 12/12/20 21:48 12/14/20 13:47 Oxycodone Hcl Immed Release 5 Mg Tablet PO 5 mg Q4H PRN Administration Pain, Severe (Pain Scale 7-10) Pharmacy Consult 1 each 12/12/20 15:18 Consult Rx Perform Med Rec MISCELLANE ONCE PRN Consult order Pharmacy Consult 1 each 12/12/20 16:32 Consult Rx Vancomycin Dosing MISCELLANE DAILY PRN Consult order Phenobarbital 45 mg 12/13/20 09:00 12/14/20 08:16 Phenobarbital 15 Mg Tablet PO 12/14/20 21:01 45 mg BID [facility] Administration Phenobarbital 15 mg 12/15/20 09:00 Phenobarbital 15 Mg Tablet PO 12/16/20 21:01 BID [facility] Phenobarbital 15 mg 12/17/20 09:00 Phenobarbital 15 Mg Tablet PO 12/18/20 09:01 DAILY [facility] Sodium Chloride 3 ml 12/13/20 00:00 12/14/20 14:53 0.9 % Sodium Chloride Flush 3 Ml Syringe IVFLUSH 3 ml QSHIFT [facility] Administration Tamsulosin HCl 0.4 mg 12/13/20 17:30 12/13/20 17:31 Tamsulosin Hcl 0.4 Mg Capsule PO 0.4 mg DAILY@1730 [facility] Administration Thiamine HCl 100 mg 12/12/20 16:50 12/14/20 08:15 Thiamine Hcl 100 Mg Tablet PO 100 mg DAILY [facility] Administration Labs CBC & Chem 7: 12/14/20 06:46 12/14/20 06:46 Microbiology Microbiology Results: Microbiology 12/12/20 14:37 Blood - Venous Blood Culture - Preliminary No growth after 24 hours. 12/12/20 14:37 Blood - Venous Blood Culture - Preliminary No growth after 24 hours. Assessment and Plan (1) Osteomyelitis: Status: Acute (2) Fluid overload: Status: Acute (3) Lactic acidosis: Status: Acute (4) Anemia: Status: Acute Assessment and Plan: A 64 years old male with PMH of CAD post CABG, diabetes on insulin, HLD, neuropathy, alcohol abuse who presents to the hospital from primary care office for worsening left big toe ulcer. Left big toe osteomyelitis Confirmed by x-ray of the foot Continue vancomycin and Zosyn renally adjusted dose infection Disease input appreciated, consider vancomycin or ertapenem at discharge for total of 6 weeks surgery input appreciated, no intervention needed at this point Blood culture pending To place a PICC line Lactic acidosis Secondary to osteomyelitis Resolved Acute diastolic CHF Noticed on bilateral lower extremities Elevated BNP Normal TSH Echo showing Low normal LV systolic function with pseudonormal filling pattern with regional wall motion abnormality noted. Expected with his history of CAD and CABG Normal x-ray of the chest To give Lasix Acute on chronic Anemia Unclear duration, patient not aware of that Previous hemoglobin of 10.7 in June 2020 Pending occult stool, Low TIBC Continue iron supplement Improved to 10 with 1 unit blood transfusion To get GI evaluation Hyperglycemia secondary to diabetes type 2 Increase Lantus to 8 units SSI diabetic diet Urine Urgency Evaluate for prostate disease Continue tamsulosin Check urinalysis DVT PPX Lovenox
[2020-12-14] MEDS: Insulin Lispro 100 UNIT/ML 3 ML VIAL SUBCUT ×2 (16:45→21:08)
[2020-12-14] MEDS: Tamsulosin HCL 0.4 MG CAPSULE PO (16:45)
[2020-12-14 19:37] VITALS: BP 102/68; PULSE 66; RESP 18; TEMP 36.7; O2SAT 100
[2020-12-14 20:04] LABS: Glucose, Whole Blood 198 mg/dL (60-115)
[2020-12-14] MEDS: Insulin Glargine,Hum.rec.anlog 100 UNIT/ML 10 ML VIAL 8 UNIT SUBCUT (21:08)
[2020-12-14] MEDS: Aspirin Enteric Coated 81 MG TABLET.DR PO (21:08)
[2020-12-15] VITALS (7 sets, daily range): BP systolic 94–138; BP diastolic 56–76; PULSE 56–62; RESP 17–20; TEMP 36.1–36.6; O2SAT 97–100
[2020-12-15] MEDS: Piperacillin Sodium/Tazobactam 3.375 GM in 0.9 % Sodium Chloride 50 ML IV ×2 (02:57→11:06)
[2020-12-15] MEDS: Omeprazole 40 MG CAPSULE.DR PO ×2 (05:41→17:05)
[2020-12-15 07:17] LABS: Glucose, Whole Blood 34 mg/dL (60-115)
[2020-12-15 07:31] LABS: Hematocrit 31.8 % (42-52); Hemoglobin 10.3 g/dl (14.0-18.0); Mean Corpuscular HGB Conc 32.4 g/dl (31.0-36.0); Mean Corpuscular Hemoglobin 32.1 pg (27.0-33.0); Mean Corpuscular Volume 99.1 fL (80-98); Mean Platelet Volume 9.7 fL (9.4-12.4); Platelet Count 270 X10*3/uL (160-400); Red Blood Count 3.21 X10*6/uL (4.60-5.80); Red Cell Distribution Width 15.8 % (11.0-16.0); White Blood Count 5.4 X10*3/uL (4.8-10.8)
[2020-12-15] MEDS: 0.9 % Sodium Chloride Flush 3 ML SYRINGE IVFLUSH ×2 (07:53→14:41)
[2020-12-15] MEDS: Folic Acid 1 MG TABLET PO (07:54)
[2020-12-15] MEDS: Thiamine HCL 100 MG TABLET PO (07:54)
[2020-12-15] MEDS: PHENobarbitaL 15 MG TABLET PO ×2 (07:54→21:38)
[2020-12-15] MEDS: Multivitamin TABLET 1 TAB PO (07:54)
[2020-12-15] MEDS: Metoprolol Succinate ER 50 MG TAB.ER.24H PO (07:55)
[2020-12-15] MEDS: Atorvastatin Calcium 20 MG TABLET PO (07:55)
[2020-12-15 08:15] LABS: B Type Natriuretic Peptide 313 pg/mL (<100)
[2020-12-15 08:30] LABS: Anion Gap 14 (12-20); Blood Urea Nitrogen 10 mg/dL (9-16); Calcium 7.9 mg/dL (8.4-10.2); Carbon Dioxide 27 mmol/L (22-29); Chloride 100 mmol/L (96-108); Creatinine Clr Calc Pharmacy 44.1; Estimated Glomerular Filt Rate 46; Glucose Random 33 mg/dL (60-115); Potassium 4.2 mmol/L (3.3-5.1); Sodium 137 mmol/L (135-145)
--- NOTE | 2020-12-15 08:56 | PM.PNGS ---
Subjective Subjective Date of Service: 12/15/20 Interval history: Some pain on left foot No new complaints Says he feels well otherwise Physical Exam Vital Signs: Vital Signs: Last Vital Signs Temp 97.1 F 12/15/20 07:41 Pulse 56 12/15/20 07:55 Resp 18 12/15/20 07:41 BP 121/70 12/15/20 07:55 Pulse Ox 100 12/15/20 07:41 Body Mass Index 19.6 Const: General: comfortable and no acute distress Resp: Effort & Inspection: normal respiratory effort Cardio: Rate: regular rate GI: Palpation (GI): Soft to palpation and nontender Progress Note: A&P Assessment and plan (1) Chronic diabetic ulcer of right foot determined by examination: Status: Acute Assessment and Plan: Left foot ulcer clean Continue alginate dressings As osteomyelitis Will be on chronic long-term IV antibiotics Wound care When discharge, okay to follow up in the office Fall Risk Details Current Medications: Current Medications Generic Name Dose Route Start Last Admin Trade Name Freq PRN Reason Stop Dose Admin Acetaminophen 650 mg 12/12/20 19:57 Acetaminophen 325 Mg Tablet PO Q6H PRN Pain, Mild (Pain Scale 1-3) Aspirin 81 mg 12/12/20 21:00 12/14/20 21:08 Aspirin Enteric Coated 81 Mg Tablet. PO 81 mg BEDTIME LIDYA Administration Atorvastatin Calcium 20 mg 12/13/20 09:00 12/15/20 07:55 Atorvastatin Calcium 20 Mg Tablet PO 20 mg DAILY LIDYA Administration Folic Acid 1 mg 12/12/20 16:50 12/15/20 07:54 Folic Acid 1 Mg Tablet PO 1 mg DAILY LIDYA Administration Piperacillin Sod/Tazobactam 50 mls @ 100 mls/hr 12/13/20 09:00 12/15/20 03:27 Sod 3.375 gm/ Sodium Chloride IV Infused Q6H [facility] Infusion Vancomycin HCl 1,250 mg/ 250 mls @ 166.667 mls/hr 12/15/20 08:00 Sodium Chloride IV Q24H [facility] Insulin Glargine 4 unit 12/15/20 21:00 Insulin Glargine,Hum.Rec.Anlog 100 Unit/Ml 10 Ml Vial SUBCUT BEDTIME [facility] Insulin Human Lispro 0 unit 12/12/20 19:57 12/15/20 07:32 Insulin Lispro 100 Unit/Ml 3 Ml Vial SUBCUT Not Given QIDACHS [facility] Protocol Medication 1 each 12/13/20 09:00 No Benzodiazepines MISCELLANE DAILY [facility] Metoprolol Succinate 50 mg 12/13/20 09:00 12/15/20 07:55 Metoprolol Succinate Er 50 Mg Tab.Er.24h PO 50 mg DAILY L[facility]YA Administration Protocol Multivitamins/Vitamin C 1 tab 12/13/20 09:00 12/15/20 07:54 Multivitamin Tablet PO 1 tab DAILY L[facility] Administration Omeprazole 40 mg 12/13/20 17:45 12/15/20 05:41 Omeprazole 40 Mg Capsule.Dr PO 40 mg BID@4630,1630 L[facility] Administration Ondansetron HCl 4 mg 12/12/20 19:57 Ondansetron Hcl 4 Mg/2 Ml Vial IVPUSH Q8H PRN Nausea and Vomiting Oxycodone HCl 5 mg 12/12/20 21:48 12/14/20 19:42 Oxycodone Hcl Immed Release 5 Mg Tablet PO 5 mg Q4H PRN Administration Pain, Severe (Pain Scale 7-10) Pharmacy Consult 1 each 12/12/20 15:18 Consult Rx Perform Med Rec MISCELLANE ONCE PRN Consult order Pharmacy Consult 1 each 12/12/20 16:32 Consult Rx Vancomycin Dosing MISCELLANE DAILY PRN Consult order Phenobarbital 15 mg 12/15/20 09:00 12/15/20 07:54 Phenobarbital 15 Mg Tablet PO 12/16/20 21:01 15 mg BID L[facility] Administration Phenobarbital 15 mg 12/17/20 09:00 Phenobarbital 15 Mg Tablet PO 12/18/20 09:01 DAILY [facility] Sodium Chloride 3 ml 12/13/20 00:00 12/15/20 07:53 0.9 % Sodium Chloride Flush 3 Ml Syringe IVFLUSH 3 ml QSHIFT [facility] Administration Tamsulosin HCl 0.4 mg 12/13/20 17:30 12/14/20 16:45 Tamsulosin Hcl 0.4 Mg Capsule PO 0.4 mg DAILY@1740 L[facility] Administration Thiamine HCl 100 mg 12/12/20 16:50 12/15/20 07:54 Thiamine Hcl 100 Mg Tablet PO 100 mg DAILY L[facility] Administration Time Spent With Patient Time: Total time spent is greater than 50% in coordination of care (as documented) at patient's floor/unit and/or counseling patient: Time with patient: 15 - 24 minutes Procedures Date of Service Date of Service: 12/15/20
[2020-12-15 08:59] LABS: Glucose, Whole Blood 163 mg/dL (60-115)
[2020-12-15 09:11] LABS: Estimated Average Glucose 235 mg/dL; Hemoglobin A1c % 9.8 %
[2020-12-15 09:36] LABS: Folate 13.8 ng/mL (> or = 4.0); Vitamin B12 817 pg/mL (200-900)
[2020-12-15] MEDS: vancomycin HCL 1,250 MG in 0.9 % Sodium Chloride 250 ML 166.67 MG IV (11:05)
[2020-12-15] MEDS: Insulin Lispro 100 UNIT/ML 3 ML VIAL SUBCUT (11:06)
--- NOTE | 2020-12-15 11:10 | HO.PICC ---
PICC Line Insertion [facility] Diagnosis: L TOE OSTEOMYELITIS Indication: EXPERIENCE SPECIALIST IV ANTIBIOTICS Pertinent Labs: REVIEWED Technique: Following informed consent including risks, benefits and alternatives and using sterile technique including cap and mask, sterile gown, glove and drape, the RIGHT arm was prepped and draped in the usual sterile fashion of full barrier technique with G. Following completion of Dexter Protocol the skin and soft tissues were anesthetized with 1% Lidocaine plain. Using ultrasound guidance, BRACHIAL vein access was obtained IN SINGLE ATTEMPT BY THIS RN. Over an 0.018 wire through peel-away sheath, a 4-COSTA RICAN, SINGLE LUMEN, PASV PICC line was positioned. Catheter length is 41 CM internal length, 0 CM external length, for a total trimmed length of 41 CM. The procedure was performed in S-272. Tip verification was performed by Issac Orosco with Vonda CanoG. Tip located in SVC. Ultrasound was used to document vein patency and for needle entry. A formal ultrasound picture and cardiac rhythm strip was recorded. Vascular Technical Writing Lead/Mgr has released the line for use and it is currently dressed with a StatLock, Tegaderm, and CHG disc. Verification has been performed for blood return and line patency. Arm Circumference: 24 CM Equipment: [employer] POWER PICC SOLO Catheter Type: 4-COSTA RICAN, SINGLE LUMEN, PASV Lot #: [id number]
[2020-12-15 12:21] LABS: Glucose, Whole Blood 239 mg/dL (60-115)
--- NOTE | 2020-12-15 14:02 | MHC.CM.PN ---
Male 64 DX L TOE ULCER DP is home with [facility] for 6 weeks of IV ABX therapy. Final blood cultures and ABX TBD., CM will follow.
[2020-12-15] MEDS: Ertapenem Sodium 1 GM in 0.9 % Sodium Chloride 50 ML IV (14:39)
[2020-12-15 16:30] LABS: Glucose, Whole Blood 89 mg/dL (60-115)
--- NOTE | 2020-12-15 16:39 | HO.PM.IMPN ---
Subjective Subjective Date of Service: 12/15/20 Interval History: the patient was seen and evaluated this morning Laying in bed, feels comfortable overall but complaining of left ankle pain Hemoglobin stable around 10 1 unit transfusion Denies any fever, chills or shortness of breath No reported other overnight events. Review of Systems No fever, but reporting chills and increased weakness No chest pain, palpitation No shortness of breath or coughing No abdominal pain, nausea or vomiting Reports difficulty with urination, hesitancy and urgency Complaining of wound at his left foot Physical Exam Vital Signs: Vital Signs: Last Vital Signs Temp 98 F 12/15/20 15:53 Pulse 59 12/15/20 15:53 Resp 17 12/15/20 15:53 BP 132/68 12/15/20 15:53 Pulse Ox 99 12/15/20 15:53 Body Mass Index 19.6 Const: Other: Constitutional : Alert, oriented, witnessed tremors or chills Neck : Normal inspection, Supple Cardiovascular : RRR, S1 S2, +2 bilateral lower extremity edema, myriam of bypass surgery on chest wall Respiratory : Fair bilateral air entry, no crackles, wheezes or rhonchi Gastrointestinal: soft, lax, Normal bowel sounds, Non tender Skin : Warm/Dry, 1 why 1 cm deep wound in the base of his left big toe surrounded by improving erythema and warm skin. No drainage noted. Neurological : Alert & oriented x3, No focal deficit Objective Data Current Medications Generic Name Dose Route Start Last Admin Trade Name Freq PRN Reason Stop Dose Admin Acetaminophen 650 mg 12/12/20 19:57 Acetaminophen 325 Mg Tablet PO Q6H PRN Pain, Mild (Pain Scale 1-3) Aspirin 81 mg 12/12/20 21:00 12/14/20 21:08 Aspirin Enteric Coated 81 Mg Tablet. PO 81 mg BEDTIME LIDYA Administration Atorvastatin Calcium 20 mg 12/13/20 09:00 12/15/20 07:55 Atorvastatin Calcium 20 Mg Tablet PO 20 mg DAILY L[facility] Administration Folic Acid 1 mg 12/12/20 16:50 12/15/20 07:54 Folic Acid 1 Mg Tablet PO 1 mg DAILY [facility] Administration Insulin Glargine 4 unit 12/15/20 21:00 Insulin Glargine,Hum.Rec.Anlog 100 Unit/Ml 10 Ml Vial SUBCUT BEDTIME [facility] Insulin Human Lispro 0 unit 12/12/20 19:57 12/15/20 11:06 Insulin Lispro 100 Unit/Ml 3 Ml Vial SUBCUT 4 unit QIDACHS [facility] Administration Protocol Medication 1 each 12/13/20 09:00 No Benzodiazepines MISCELLANE DAILY [facility] Metoprolol Succinate 50 mg 12/13/20 09:00 12/15/20 07:55 Metoprolol Succinate Er 50 Mg Tab.Er.24h PO 50 mg DAILY L[facility]YA Administration Protocol Multivitamins/Vitamin C 1 tab 12/13/20 09:00 12/15/20 07:54 Multivitamin Tablet PO 1 tab DAILY [facility] Administration Omeprazole 40 mg 12/13/20 17:45 12/15/20 05:41 Omeprazole 40 Mg Capsule.Dr PO 40 mg BID@7330,1260 [facility] Administration Ondansetron HCl 4 mg 12/12/20 19:57 Ondansetron Hcl 4 Mg/2 Ml Vial IVPUSH Q8H PRN Nausea and Vomiting Oxycodone HCl 5 mg 12/12/20 21:48 12/14/20 19:42 Oxycodone Hcl Immed Release 5 Mg Tablet PO 5 mg Q4H PRN Administration Pain, Severe (Pain Scale 7-10) Pharmacy Consult 1 each 12/12/20 15:18 Consult Rx Perform Med Rec MISCELLANE ONCE PRN Consult order Pharmacy Consult 1 each 12/12/20 16:32 Consult Rx Vancomycin Dosing MISCELLANE DAILY PRN Consult order Phenobarbital 15 mg 12/15/20 09:00 12/15/20 07:54 Phenobarbital 15 Mg Tablet PO 12/16/20 21:01 15 mg BID LIDYA Administration Phenobarbital 15 mg 12/17/20 09:00 Phenobarbital 15 Mg Tablet PO 12/18/20 09:01 DAILY [facility] Sodium Chloride 3 ml 12/13/20 00:00 12/15/20 14:41 0.9 % Sodium Chloride Flush 3 Ml Syringe IVFLUSH 3 ml QSHIFT [facility] Administration Tamsulosin HCl 0.4 mg 12/13/20 17:30 12/14/20 16:45 Tamsulosin Hcl 0.4 Mg Capsule PO 0.4 mg DAILY@2500 [facility] Administration Thiamine HCl 100 mg 12/12/20 16:50 12/15/20 07:54 Thiamine Hcl 100 Mg Tablet PO 100 mg DAILY [facility] Administration Labs CBC & Chem 7: 12/15/20 05:35 12/15/20 05:34 Microbiology Microbiology Results: Microbiology 12/12/20 14:37 Blood - Venous Blood Culture - Preliminary No growth after 48 hours. 12/12/20 14:37 Blood - Venous Blood Culture - Preliminary No growth after 48 hours. Assessment and Plan (1) Osteomyelitis: Status: Acute (2) Fluid overload: Status: Acute (3) Lactic acidosis: Status: Acute (4) Anemia: Status: Acute Assessment and Plan: A 64 years old male with PMH of CAD post CABG, diabetes on insulin, HLD, neuropathy, alcohol abuse who presents to the hospital from primary care office for worsening left big toe ulcer. Left big toe osteomyelitis Confirmed by x-ray of the foot Discontinue vancomycin and Zosyn renally adjusted dose infection Disease input appreciated, ertapenem at discharge for total of 6 weeks surgery input appreciated, no intervention needed at this point Blood culture negative PICC line placed To receive the 1st dose of ertapenem in the hospital before discharge hopefully tomorrow. Lactic acidosis Secondary to osteomyelitis Resolved Acute diastolic CHF Noticed on bilateral lower extremities Elevated BNP Normal TSH Echo showing Low normal LV systolic function with pseudonormal filling pattern with regional wall motion abnormality noted. Expected with his history of CAD and CABG Normal x-ray of the chest To give Lasix Acute on chronic Anemia Unclear duration, patient not aware of that Previous hemoglobin of 10.7 in June 2020 Pending occult stool, Low TIBC Continue iron supplement Improved to 10 with 1 unit blood transfusion GI input appreciated, to follow-up as outpatient for evaluation Hypoglycemia secondary to diabetes type 2 Decrease Lantus to 4 units SSI diabetic diet Urine Urgency Evaluate for prostate disease Continue tamsulosin DVT PPX Lovenox
[2020-12-15] MEDS: Tamsulosin HCL 0.4 MG CAPSULE PO (17:05)
[2020-12-15 20:37] LABS: Glucose, Whole Blood 111 mg/dL (60-115)
[2020-12-15] MEDS: Aspirin Enteric Coated 81 MG TABLET.DR PO (21:38)
[2020-12-16] VITALS: BP 102/54; PULSE 72; RESP 18; TEMP 36.3; O2SAT 98
[2020-12-16] MEDS: 0.9 % Sodium Chloride Flush 3 ML SYRINGE IVFLUSH ×2 (02:22→08:18)
[2020-12-16 03:17] VITALS: BP 105/56; PULSE 61; RESP 18; TEMP 36.3; O2SAT 100
[2020-12-16] MEDS: Omeprazole 40 MG CAPSULE.DR PO (05:54)
[2020-12-16 07:15] LABS: Glucose, Whole Blood 73 mg/dL (60-115)
[2020-12-16 07:22] LABS: Anion Gap 12 (12-20); Blood Urea Nitrogen 9 mg/dL (9-16); Calcium 7.9 mg/dL (8.4-10.2); Carbon Dioxide 27 mmol/L (22-29); Chloride 103 mmol/L (96-108); Creatinine Clr Calc Pharmacy 46.8; Estimated Glomerular Filt Rate 49; Glucose Random 66 mg/dL (60-115); Potassium 5.2 mmol/L (3.3-5.1); Sodium 137 mmol/L (135-145)
[2020-12-16 07:23] VITALS: BP 131/76; PULSE 55; RESP 20; TEMP 36.5; O2SAT 100
[2020-12-16 08:18] VITALS: BP 131/76; PULSE 55
[2020-12-16] MEDS: Atorvastatin Calcium 20 MG TABLET PO (08:18)
[2020-12-16] MEDS: Metoprolol Succinate ER 50 MG TAB.ER.24H PO (08:18)
[2020-12-16] MEDS: Folic Acid 1 MG TABLET PO (08:18)
[2020-12-16] MEDS: Thiamine HCL 100 MG TABLET PO (08:18)
[2020-12-16] MEDS: Multivitamin TABLET 1 TAB PO (08:19)
[2020-12-16] MEDS: PHENobarbitaL 15 MG TABLET PO (08:19)
[2020-12-16] MEDS: Sodium Polystyrene Sulfon/Sorb 15 GM/60 ML ORAL.SUSP 30 GM PO (09:40)
[2020-12-16 11:02] LABS: Glucose, Whole Blood 89 mg/dL (60-115)
--- NOTE | 2020-12-16 11:19 | PM.DS ---
DS: Providers Provider Date of Service: 12/16/20 Date of admission: 12/12/20 16:30 Primary care physician: Rufino Rajput MD Consults: 12/12/20 19:57 Consult to General Surgery Routine Consulting Provider: Diamond Faulkner Reason for consultation: Left big toe osteomyelitis for your kind eval. Consult to Infectious Diseases Routine Consulting Provider: Alyssia Schuster Reason for consultation: Left big toe osteomyelitis for your kind eval. 12/13/20 10:28 Consult to Gastroenterology Routine Consulting Provider: Ana Silvestre Reason for consultation: acute on chronic anemia, alcoholism for your kind eval. DS: Diagnosis Discharge Diagnosis (1) Acute on chronic anemia: Status: Acute (2) Osteomyelitis of left foot: Status: Acute (3) Fluid overload: Status: Acute (4) Acute diastolic (congestive) heart failure: Status: Acute DS: Medications Discharge Medications Home Medications: Home Medications Medication Instructions Recorded Confirmed aspirin 81 mg tablet,delayed 81 mg PO BEDTIME 12/12/20 12/12/20 release atorvastatin 20 mg tablet 20 mg PO DAILY 12/12/20 12/12/20 blood-glucose meter #1 ea 12/12/20 12/12/20 lancets 28 gauge #100 ea 12/12/20 12/12/20 metoprolol succinate 50 mg 50 mg PO DAILY 12/12/20 12/12/20 tablet,extended release 24 hr multivitamin 1 tab PO DAILY 12/12/20 12/12/20 pen needle, diabetic 31 gauge x #50 ea 12/12/20 12/12/2010/07 Previous Rx's Medication Instructions Recorded insulin glargine 100 unit/mL (3 6 unit SUBCUT BEDTIME 30 Days #1.8 12/12/20 mL) subcutaneous pen ml ertapenem 1 g IV DAILY #38 ea 12/15/20 folic acid 1 mg PO DAILY #30 tab 12/15/20 omeprazole 40 mg PO BID@0630,1630 #60 cap 12/15/20 tamsulosin 0.4 mg PO DAILY@1730 #30 cap 12/15/20 thiamine mononitrate (vit B1) 100 mg PO DAILY #30 tab 12/15/20 furosemide 20 mg PO QAM #30 tab 12/16/20 DS: Summary Hospital Course Hospital Course: Admission note HPI A 64 years old male with PMH of CAD post CABG, diabetes on insulin, HLD, neuropathy, alcohol abuse who presents to the hospital from primary care office for worsening left big toe ulcer. The patient reports that he had a breakage at the base of his left big toe almost 6 months ago with an open wound that has been worsening since then. For the last week or so he notes increased warmth, swelling, erythema and tenderness around the area and noticed clear small amount of drainage. He reports chills but denies any documented fever. Report having neuropathy at the bottom of his feet were he cannot feel much. He has a small dry ulcer on the other foot that is not infected. In the emergency an x-ray of the foot was consistent with osteomyelitis diagnosis. Blood work was consistent with lactic acidosis, anemia, kidney injury. The patient usually follow at [facility] and we are trying to get the papers from there. Hospital course Left big toe osteomyelitis Confirmed by x-ray of the foot Started treatment with vancomycin and Zosyn renally adjusted dose. Blood cultures remain negative during the hospital stay. Evaluated by infectious disease and surgical team. No intervention needed at this point. To be treated with total of 6 weeks of IV antibiotics. To be discharged on ertapenem 1 g daily. To follow-up with wound clinic. Treated for Acute diastolic CHF as Noticed on bilateral lower extremities P with Elevated BNP. Echo showing Low normal LV systolic function with pseudonormal filling pattern with regional wall motion abnormality noted. Responded well to IV Lasix. To be discharged home small dose of Lasix. He was found to have Acute on chronic Anemia with Previous hemoglobin of 10.7 in June 2020 down to 8 during this admission. 1 unit given for low hemoglobin of 7 point almost 10. Evaluated by Gastroenterology who recommended outpatient follow-up for EGD and possible colonoscopy. Hypoglycemia secondary to diabetes type 2 Decrease Lantus to 4 units SSI diabetic diet Patient complaining of urgency and hesitancy among urinary symptoms. Normal PSA. Started on tamsulosin. Time Spent with Patient Time attestation: Total time spent providing and/or coordinating discharge services: Discharge coordination time: Greater than 30 minutes Quality: Stroke Does the patient have a stroke diagnosis?: No Physical Exam Vital Signs: Vital Signs: Last Vital Signs Temp 97.7 F 12/16/20 07:23 Pulse 55 12/16/20 08:18 Resp 20 05/25/21 07:23 BP 131/76 12/16/20 08:18 Pulse Ox 100 12/16/20 07:23 Body Mass Index 19.6 Const: Other: Constitutional : Alert, oriented, Neck : Normal inspection, Supple Cardiovascular : RRR, S1 S2, +2 bilateral lower extremity edema, myriam of bypass surgery on chest wall Respiratory : Fair bilateral air entry, no crackles, wheezes or rhonchi Gastrointestinal: soft, lax, Normal bowel sounds, Non tender Skin : Warm/Dry, improving erythema and warm skin. Base of big toe ulcer covered with dressing with surrounding erythema daughter resolved No drainage noted. Neurological : Alert & oriented x3, No focal deficit DS: Data Data Completed and Pending Labs on day of discharge: Laboratory Results - last 24 hr 12/15/20 12/15/20 12/15/20 11:01 16:22 20:29 Sodium Potassium Chloride Carbon Dioxide Anion Gap BUN Creatinine Estim Creat Clear Calc Estimated GFR POC Glucose 239 H 89 111 Random Glucose Calcium 12/16/20 12/16/20 12/16/20 05:19 07:08 10:51 Sodium 137 Potassium 5.2 H D Chloride 103 Carbon Dioxide 27 Anion Gap 12 BUN 9 Creatinine 1.44 H Estim Creat Clear Calc 46.8 Estimated GFR 49 POC Glucose 73 89 Random Glucose 66 D Calcium 7.9 L Preliminary micro results at discharge 12/12/20 14:37 Blood Culture - Preliminary Blood - Venous No growth after 48 hours. 12/12/20 14:37 Blood Culture - Preliminary Blood - Venous No growth after 48 hours. ECHO Conclusions: - 1. Low normal LV systolic function with pseudonormal filling pattern with regional wall motion abnormality noted 2. Mildly dilated left atrium 3. Mild aortic and mitral regurgitation 4. Mildly dilated aortic root and ascending aorta 5. Normal RV systolic pressure 6. No pericardial effusion Discharge Plan Discharge Patient Disposition: Home Health Service Discharge Diagnosis: Osteomyelitis left big toe. Referrals: Rufino Rajput MD [Primary Care Provider] - 1 Week Discharge Medications: New omeprazole 40 mg Capsule,Delayed Release(Dr/Ec) 40 mg PO BID@0630,1630 Qty: 60 RF: 0 tamsulosin 0.4 mg Capsule 0.4 mg PO DAILY@1730 Qty: 30 RF: 0 folic acid 1 mg Tablet 1 mg PO DAILY Qty: 30 RF: 0 thiamine mononitrate (vit B1) 100 mg Tablet 100 mg PO DAILY Qty: 30 RF: 0 ertapenem 1 gram recon soln 1 g IV DAILY Qty: 38 RF: 0 furosemide 20 mg tablet 20 mg PO QAM Qty: 30 RF: 0 Continued multivitamin Tablet 1 tab PO DAILY RF: 0 atorvastatin 20 mg tablet 20 mg PO DAILY RF: 0 metoprolol succinate 50 mg tablet extended release 24 hr 50 mg PO DAILY RF: 0 (DME) lancets 28 gauge misc See Rx Instructions ea topical TID Qty: 100 RF: 0 (DME) blood-glucose meter Kit See Rx Instructions kit .ROUTE .MEDSUPPLY Qty: 1 RF: 0 (DME) pen needle, diabetic 31 gauge x 3/16 needle See Rx Instructions ea .ROUTE DAILY Qty: 50 RF: 0 aspirin 81 mg tablet,delayed release (DR/EC) 81 mg PO BEDTIME RF: 0 insulin glargine 100 unit/mL (3 mL) insulin pen 6 unit subcut BEDTIME 30 Days Qty: 1.8 RF: 0 Discharge Orders: Discharge Order (Routine); Ordered 12/16/20 Ordered By: Ya Cole Diet: advance to usual diet Activity on Discharge: As tolerated Stand Alone Forms: Patient Portal Discharge page Care Plan Goals: Read below Health Concerns: Read below Plan of Treatment: You were admitted to the hospital for evaluation of left big toe base open wound. Images were consistent with bone infection. You were evaluated by infectious disease and technical sales specialist who recommended treatment with IV antibiotics for total of 6 weeks. Assessment: Continue ertapenem as prescribed Continue with wound care follow-ups We advise you complete abstinence from alcohol. continue folic acid and thiamine Start tamsulosin for urinary symptoms Start Lasix for treatment of fluid overload Will repeat blood test next week
[2020-12-16 11:35] VITALS: BP 103/71; PULSE 86; RESP 20; TEMP 36.3; O2SAT 100
--- NOTE | 2020-12-16 12:36 | MHC.CM.PN ---
MALE 64 DX L GR TOE ULCER OSTEO+. HE WILL DISCHARGE TODAY. HE IS HOME WITH IV ABX THERAPY. [facility] IS THE HOME INFUSION COMPANY. [facility] FOR MEDICATION MANAGEMENT AND DRESSING CHANGES. [facility] WILL DELIVERY BY 2PM TOMORROW. [facility] WILL START SERVICES TOMORROW AFTERNOON WELL. hE WILL DISCHARGE AFTER HIS DOSE OF ERTEPENUM HAS BEEN INFUSED. hE WILL BE RECEIVING ASSIT WITH [employer] PROVIDED TO PT.
[2020-12-16] MEDS: Ertapenem Sodium 1 GM in 0.9 % Sodium Chloride 50 ML IV (13:54)
== END 2020-12-16 15:43 | disposition home health service (06) | DRG 344 ==
LOC: HO.ED 16:36 → HO.IMC 17:16
PROVIDERS: Physician Assistant; Admitting Provider Student in an Organized Health Care Education/Training Program; Emergency Provider Emergency Medicine; PCP Internal Medicine; Visit Provider Student in an Organized Health Care Education/Training Program
DX: E11.69 Type 2 diabetes mellitus with other specified complication (principal); M86.9 Osteomyelitis, unspecified; I50.31 Acute diastolic (congestive) heart failure; E87.2 Acidosis; E11.649 Type 2 diabetes mellitus with hypoglycemia without coma; E11.42 Type 2 diabetes mellitus with diabetic polyneuropathy; D64.9 Anemia, unspecified; E11.621 Type 2 diabetes mellitus with foot ulcer; I25.10 Atherosclerotic heart disease of native coronary artery without angina pectoris; L97.529 Non-pressure chronic ulcer of other part of left foot with unspecified severity; E11.65 Type 2 diabetes mellitus with hyperglycemia; R39.15 Urgency of urination; Z20.822 Contact with and (suspected) exposure to COVID-19; Z95.1 Presence of aortocoronary bypass graft; Z79.4 Long term (current) use of insulin; Z79.82 Long term (current) use of aspirin; Z79.899 Other long term (current) drug therapy
CPT/HCPCS: 36415; 36573; 71045; 73620; 80048; 80053; 80202; 82607; 82728; 82746; 82947; 83036; 83540; 83605; 83880; 84153; 84443; 85025; 85027; 85610; 85652; 85730; 86140; 86850; 86900; 86901; 86923; 87040; 87635; 93306; 96365; 96368; 97162; 99285; C1751; J1200; J1335; J1650; J1940; J2543; J2560; J3370; P9016

== ENCOUNTER 2020-12-19 15:06 | Outpatient (REF) | payer OTHER, SELFPAY ==
[2020-12-19 16:33] LABS: MANUAL DIFF FLAG NO
[2020-12-19 16:35] LABS: Basophils Percent Auto 0.6 % (0-2); Eosinophils Percent Auto 0.6 % (0-4); Hematocrit 29.4 % (42-52); Hemoglobin 9.2 g/dl (14.0-18.0); Imm Gran Abs Auto 0.04 X10*3/uL (0.00-0.03); Imm Gran Pct Auto 0.6 % (0.0-0.4); Lymphocytes Absolute Auto 1.1 X10*3/uL (1.2-4.9); Lymphocytes Percent Auto 15.3 % (20-40); Mean Corpuscular HGB Conc 31.3 g/dl (31.0-36.0); Mean Corpuscular Hemoglobin 32.2 pg (27.0-33.0); Mean Corpuscular Volume 102.8 fL (80-98); Mean Platelet Volume 9.6 fL (9.4-12.4); Monocytes Absolute Auto 0.6 X10*3/uL (0.1-1.2); Monocytes Percent Auto 8.2 % (2-11); Neutrophils Absolute Auto 5.3 X10*3/uL (2.0-8.3); Neutrophils Percent Auto 74.7 % (45-73); Platelet Count 223 X10*3/uL (160-400); Red Blood Count 2.86 X10*6/uL (4.60-5.80); Red Cell Distribution Width 15.4 % (11.0-16.0); White Blood Count 7.1 X10*3/uL (4.8-10.8)
[2020-12-19 17:01] LABS: Anion Gap 11 (12-20); Blood Urea Nitrogen 11 mg/dL (9-16); Calcium 7.4 mg/dL (8.4-10.2); Carbon Dioxide 26 mmol/L (22-29); Chloride 99 mmol/L (96-108); Estimated Glomerular Filt Rate 54; Glucose Random 342 mg/dL (60-115); Potassium 4.4 mmol/L (3.3-5.1); Sodium 132 mmol/L (135-145)
== END 2020-12-19 15:07 | disposition home or self-care (01) ==
LOC: HO.HVNA 15:06
PROVIDERS: Visit Provider Internal Medicine
DX: E11.69 Type 2 diabetes mellitus with other specified complication (principal); M86.172 Other acute osteomyelitis, left ankle and foot
CPT/HCPCS: 80048; 85025

== ENCOUNTER 2020-12-23 08:02 | Outpatient (RCR) | payer MEDICARE, OTHER, SELFPAY | END 2021-01-28 11:51 | disposition home or self-care (01) | LOC: HO.WCC 08:02 | PROVIDERS: Visit Provider Physician Assistant | DX: E11.621 Type 2 diabetes mellitus with foot ulcer (principal); L97.522 Non-pressure chronic ulcer of other part of left foot with fat layer exposed; S51.811D Laceration without foreign body of right forearm, subsequent encounter; E11.69 Type 2 diabetes mellitus with other specified complication; E11.40 Type 2 diabetes mellitus with diabetic neuropathy, unspecified; M86.9 Osteomyelitis, unspecified; R60.0 Localized edema; I25.10 Atherosclerotic heart disease of native coronary artery without angina pectoris; I25.2 Old myocardial infarction; Z87.891 Personal history of nicotine dependence; Z72.89 Other problems related to lifestyle; Z79.2 Long term (current) use of antibiotics; Z79.4 Long term (current) use of insulin | CPT/HCPCS: 11042; 17250; 97597; 99212; 99215 ==

== ENCOUNTER 2020-12-26 15:00 | Outpatient (REF) | payer MEDICARE, OTHER, SELFPAY ==
[2020-12-26 16:25] LABS: MANUAL DIFF FLAG NO
[2020-12-26 16:29] LABS: Basophils Percent Auto 0.7 % (0-2); Eosinophils Percent Auto 0.7 % (0-4); Hematocrit 27.8 % (42-52); Imm Gran Abs Auto 0.04 X10*3/uL (0.00-0.03); Imm Gran Pct Auto 0.7 % (0.0-0.4); Lymphocytes Absolute Auto 1.2 X10*3/uL (1.2-4.9); Mean Corpuscular HGB Conc 32.4 g/dl (31.0-36.0); Mean Corpuscular Hemoglobin 32.3 pg (27.0-33.0); Mean Corpuscular Volume 99.6 fL (80-98); Mean Platelet Volume 10.2 fL (9.4-12.4); Monocytes Absolute Auto 0.5 X10*3/uL (0.1-1.2); Monocytes Percent Auto 8.9 % (2-11); Neutrophils Absolute Auto 4.2 X10*3/uL (2.0-8.3); Platelet Count 212 X10*3/uL (160-400); Red Blood Count 2.79 X10*6/uL (4.60-5.80); White Blood Count 6.1 X10*3/uL (4.8-10.8)
[2020-12-26 22:37] LABS: Anion Gap 13 (12-20); Carbon Dioxide 27 mmol/L (22-29); Chloride 99 mmol/L (96-108); Estimated Glomerular Filt Rate 46; Potassium 4.2 mmol/L (3.3-5.1); Sodium 135 mmol/L (135-145)
[2020-12-26 22:38] LABS: Blood Urea Nitrogen 11 mg/dL (9-16); Calcium 7.8 mg/dL (8.4-10.2)
[2020-12-26 23:07] LABS: Glucose Random 426 mg/dL (60-115)
== END 2020-12-26 15:01 | disposition home or self-care (01) ==
LOC: HO.HMGCLNP 15:00
PROVIDERS: Visit Provider Internal Medicine
DX: M86.9 Osteomyelitis, unspecified (principal); E11.9 Type 2 diabetes mellitus without complications
CPT/HCPCS: 80048; 85025

== ENCOUNTER 2021-01-01 | Outpatient (REF) | payer MEDICARE, OTHER, SELFPAY ==
[2021-01-01 14:24] LABS: MANUAL DIFF FLAG NO
[2021-01-01 14:27] LABS: Basophils Percent Auto 0.5 % (0-2); Eosinophils Absolute Auto 0.1 X10*3/uL (0.0-0.4); Eosinophils Percent Auto 1.7 % (0-4); Hematocrit 26.9 % (42-52); Hemoglobin 8.6 g/dl (14.0-18.0); Imm Gran Abs Auto 0.03 X10*3/uL (0.00-0.03); Imm Gran Pct Auto 0.7 % (0.0-0.4); Lymphocytes Absolute Auto 1.1 X10*3/uL (1.2-4.9); Lymphocytes Percent Auto 25.4 % (20-40); Mean Corpuscular Hemoglobin 31.9 pg (27.0-33.0); Mean Corpuscular Volume 99.6 fL (80-98); Mean Platelet Volume 10.4 fL (9.4-12.4); Monocytes Absolute Auto 0.4 X10*3/uL (0.1-1.2); Monocytes Percent Auto 9.6 % (2-11); Neutrophils Absolute Auto 2.6 X10*3/uL (2.0-8.3); Neutrophils Percent Auto 62.1 % (45-73); Platelet Count 195 X10*3/uL (160-400); White Blood Count 4.2 X10*3/uL (4.8-10.8)
[2021-01-01 14:41] LABS: Estimated Average Glucose 209 mg/dL; Hemoglobin A1c % 8.9 %
[2021-01-01 15:05] LABS: Alanine Aminotransferase 24 U/L (0-40); Albumin Level 2.3 g/dL (3.5-5.0); Alkaline Phosphatase 113 U/L (39-117); Anion Gap 11 (12-20); Aspartate Amino Transferase 40 U/L (5-37); Bilirubin Total 0.2 mg/dL (0.0-1.0); Blood Urea Nitrogen 12 mg/dL (9-16); Carbon Dioxide 25 mmol/L (22-29); Chloride 102 mmol/L (96-108); Cholesterol 136 mg/dL; Estimated Glomerular Filt Rate 48; Glucose Fasting 393 mg/dL (60-99); HDL Cholesterol 69 mg/dL; LDL Cholesterol Calculated 46 mg/dl; Potassium 4.6 mmol/L (3.3-5.1); Sodium 133 mmol/L (135-145); Total Protein 5.4 g/dL (6.5-8.0); Triglycerides 106 mg/dL
[2021-01-01 15:21] LABS: TSH reflex Free T4 1.02 uIU/mL (0.32-4.0)
[2021-01-01 15:38] LABS: Vitamin B12 632 pg/mL (200-900)
[2021-01-05 14:17] LABS: Vitamin D 25-OH, D2 <4 ng/mL; Vitamin D 25-OH, D3 32 ng/mL; Vitamin D 25-OH, Total 32 ng/mL (30-100)
== END 2021-01-01 00:01 | disposition home or self-care (01) ==
LOC: HO.HMGCLNP
PROVIDERS: Internal Medicine; Visit Provider Internal Medicine
DX: M86.9 Osteomyelitis, unspecified (principal); Z00.01 Encounter for general adult medical examination with abnormal findings; H91.90 Unspecified hearing loss, unspecified ear; E78.9 Disorder of lipoprotein metabolism, unspecified; I25.10 Atherosclerotic heart disease of native coronary artery without angina pectoris; E11.40 Type 2 diabetes mellitus with diabetic neuropathy, unspecified; Z79.4 Long term (current) use of insulin
CPT/HCPCS: 80053; 80061; 82306; 82607; 83036; 84443; 85025

== ENCOUNTER 2021-01-09 12:38 | Outpatient (REF) | payer MEDICARE, OTHER, SELFPAY ==
[2021-01-09 12:41] LABS: MANUAL DIFF FLAG NO
[2021-01-09 12:45] LABS: Basophils Percent Auto 0.5 % (0-2); Eosinophils Absolute Auto 0.1 X10*3/uL (0.0-0.4); Eosinophils Percent Auto 1.9 % (0-4); Hematocrit 29.1 % (42-52); Hemoglobin 9.4 g/dl (14.0-18.0); Imm Gran Abs Auto 0.02 X10*3/uL (0.00-0.03); Imm Gran Pct Auto 0.3 % (0.0-0.4); Lymphocytes Absolute Auto 1.3 X10*3/uL (1.2-4.9); Mean Corpuscular HGB Conc 32.3 g/dl (31.0-36.0); Mean Corpuscular Hemoglobin 31.8 pg (27.0-33.0); Mean Corpuscular Volume 98.3 fL (80-98); Mean Platelet Volume 10.3 fL (9.4-12.4); Monocytes Absolute Auto 0.6 X10*3/uL (0.1-1.2); Monocytes Percent Auto 10.5 % (2-11); Neutrophils Absolute Auto 3.7 X10*3/uL (2.0-8.3); Neutrophils Percent Auto 63.8 % (45-73); Platelet Count 207 X10*3/uL (160-400); Red Blood Count 2.96 X10*6/uL (4.60-5.80); Red Cell Distribution Width 13.8 % (11.0-16.0); White Blood Count 5.8 X10*3/uL (4.8-10.8)
[2021-01-09 13:11] LABS: Anion Gap 14 (12-20); Blood Urea Nitrogen 11 mg/dL (9-16); Calcium 8.5 mg/dL (8.4-10.2); Carbon Dioxide 27 mmol/L (22-29); Chloride 102 mmol/L (96-108); Estimated Glomerular Filt Rate 55; Glucose Random 155 mg/dL (60-115); Potassium 4.5 mmol/L (3.3-5.1); Sodium 138 mmol/L (135-145)
== END 2021-01-09 12:39 | disposition home or self-care (01) ==
LOC: HO.HVNA 12:38
PROVIDERS: Visit Provider Internal Medicine
DX: M86.172 Other acute osteomyelitis, left ankle and foot (principal); Z79.2 Long term (current) use of antibiotics
CPT/HCPCS: 80048; 85025

== ENCOUNTER 2021-01-16 13:52 | Outpatient (REF) | payer MEDICARE, OTHER, SELFPAY ==
[2021-01-16 16:48] LABS: MANUAL DIFF FLAG NO
[2021-01-16 16:52] LABS: Basophils Percent Auto 0.9 % (0-2); Eosinophils Absolute Auto 0.1 X10*3/uL (0.0-0.4); Eosinophils Percent Auto 1.8 % (0-4); Hematocrit 30.1 % (42-52); Hemoglobin 9.6 g/dl (14.0-18.0); Imm Gran Abs Auto 0.01 X10*3/uL (0.00-0.03); Imm Gran Pct Auto 0.3 % (0.0-0.4); Mean Corpuscular HGB Conc 31.9 g/dl (31.0-36.0); Mean Corpuscular Hemoglobin 31.3 pg (27.0-33.0); Mean Platelet Volume 10.7 fL (9.4-12.4); Monocytes Absolute Auto 0.4 X10*3/uL (0.1-1.2); Monocytes Percent Auto 11.9 % (2-11); Neutrophils Absolute Auto 1.8 X10*3/uL (2.0-8.3); Neutrophils Percent Auto 55.1 % (45-73); Platelet Count 178 X10*3/uL (160-400); Red Blood Count 3.07 X10*6/uL (4.60-5.80); Red Cell Distribution Width 13.7 % (11.0-16.0); White Blood Count 3.3 X10*3/uL (4.8-10.8)
[2021-01-16 18:15] LABS: Anion Gap 11 (12-20); Blood Urea Nitrogen 17 mg/dL (9-16); Calcium 8.1 mg/dL (8.4-10.2); Carbon Dioxide 26 mmol/L (22-29); Chloride 103 mmol/L (96-108); Estimated Glomerular Filt Rate 41; Glucose Random 519 mg/dL (60-115); Potassium 5.3 mmol/L (3.3-5.1); Sodium 135 mmol/L (135-145)
== END 2021-01-16 13:53 | disposition home or self-care (01) ==
LOC: HO.HVNA 13:52
PROVIDERS: Visit Provider Internal Medicine
DX: M86.172 Other acute osteomyelitis, left ankle and foot (principal)
CPT/HCPCS: 36415; 80048; 85025

== ENCOUNTER 2021-01-23 10:39 | Outpatient (REF) | payer MEDICARE, OTHER, SELFPAY ==
[2021-01-23 11:44] LABS: Basophils Percent Auto 0.9 % (0-2); Eosinophils Absolute Auto 0.1 X10*3/uL (0.0-0.4); Eosinophils Percent Auto 2.8 % (0-4); Hematocrit 29.9 % (42-52); Hemoglobin 9.9 g/dl (14.0-18.0); Lymphocytes Absolute Auto 0.9 X10*3/uL (1.2-4.9); Lymphocytes Percent Auto 40.9 % (20-40); MANUAL DIFF FLAG SCAN; Mean Corpuscular HGB Conc 33.1 g/dl (31.0-36.0); Mean Corpuscular Volume 93.7 fL (80-98); Mean Platelet Volume 11.4 fL (9.4-12.4); Monocytes Absolute Auto 0.3 X10*3/uL (0.1-1.2); Monocytes Percent Auto 12.1 % (2-11); Neutrophils Absolute Auto 0.9 X10*3/uL (2.0-8.3); Neutrophils Percent Auto 43.3 % (45-73); Platelet Count 147 X10*3/uL (160-400); Red Blood Count 3.19 X10*6/uL (4.60-5.80); Red Cell Distribution Width 13.3 % (11.0-16.0); SCAN SMEAR FLAG 1
[2021-01-23 11:46] LABS: White Blood Count 2.2 X10*3/uL (4.8-10.8)
[2021-01-23 12:09] LABS: Anion Gap 13 (12-20); Blood Urea Nitrogen 21 mg/dL (9-16); Calcium 7.9 mg/dL (8.4-10.2); Carbon Dioxide 24 mmol/L (22-29); Chloride 103 mmol/L (96-108); Estimated Glomerular Filt Rate 39; Glucose Random 468 mg/dL (60-115); Potassium 4.5 mmol/L (3.3-5.1); Sodium 135 mmol/L (135-145)
[2021-01-23 12:25] LABS: SLIDE REVIEW VERIFIED
== END 2021-01-23 10:40 | disposition home or self-care (01) ==
LOC: HO.HMGCLNP 10:39
PROVIDERS: Visit Provider Internal Medicine
DX: E11.621 Type 2 diabetes mellitus with foot ulcer (principal); L97.529 Non-pressure chronic ulcer of other part of left foot with unspecified severity; M86.9 Osteomyelitis, unspecified
CPT/HCPCS: 80048; 85025; 99212

== ENCOUNTER 2021-01-23 13:57 | Outpatient (REF) | payer MEDICARE, OTHER, SELFPAY ==
--- NOTE | 2021-01-23 15:53 | HO.PICC ---
PICC Line Insertion REMOVAL OF PICC LINE 1. DATE: 01/23/21 2. REASON REMOVED: NO LONGER NEEDED 3. INSERTED LENGTH: 41 CM 4. REMOVED LENGTH: 41 CM INTACT PICC LINE 5. 2X2 GAUZE AND TEGADERM PLACED OVER CLEAN/DRY/INTACT INSERTION SITE PATIENT TOLERATED PICC REMOVAL WELL. OFFERS NO COMPLAINTS.
== END 2021-01-23 13:58 | disposition home or self-care (01) ==
LOC: HO.RADIR 13:57
PROVIDERS: PCP Internal Medicine; Visit Provider Internal Medicine
DX: Z13.89 Encounter for screening for other disorder (principal)

== ENCOUNTER 2021-03-06 07:59 | Outpatient (RCR) | payer MEDICARE, OTHER, SELFPAY | END 2021-04-08 15:47 | disposition home or self-care (01) | LOC: HO.WCC 07:59 | PROVIDERS: PCP Internal Medicine; Visit Provider Physician Assistant | DX: E11.621 Type 2 diabetes mellitus with foot ulcer (principal); L97.511 Non-pressure chronic ulcer of other part of right foot limited to breakdown of skin; E11.40 Type 2 diabetes mellitus with diabetic neuropathy, unspecified; I25.10 Atherosclerotic heart disease of native coronary artery without angina pectoris; I25.2 Old myocardial infarction; Z87.891 Personal history of nicotine dependence; Z72.89 Other problems related to lifestyle | CPT/HCPCS: 11042; 97597; 99212 ==

== ENCOUNTER 2021-08-06 07:53 | Outpatient (RCR) | payer MEDICARE, OTHER, SELFPAY ==
--- NOTE | ~2021-08-06 | XR_ITS ---
EXAMINATION: XR FOOT, RIGHT CLINICAL INFORMATION: Fusion hallux. COMPARISON: None TECHNIQUE: AP, lateral, and oblique views of the right foot. FINDINGS: There is fusion of the hallux with dorsal side plate bridging the first metatarsal and proximal phalanx and multiple screws. Cannulated screw is also seen through the first MTP joint long axis. The joint surfaces are not well visualized suggesting some fusion. Hardware is intact. There is no fracture or dislocation or destructive process. No osteolysis or periostitis. There is mild hallux valgus of approximately 30 degrees. There is old posttraumatic deformity fifth metatarsal neck with an intact fixation screw present. The remainder of the bony structures are unremarkable. No acute or healing fracture. XR/XR foot RT min 3V IMPRESSION: Postsurgical changes hallux and 5th metatarsal. Hardware intact. No acute or healing fracture or destructive process.
== END 2021-09-24 09:13 | disposition home or self-care (01) ==
LOC: HO.WCC 07:53
PROVIDERS: Visit Provider Surgery
DX: E11.621 Type 2 diabetes mellitus with foot ulcer (principal); L97.512 Non-pressure chronic ulcer of other part of right foot with fat layer exposed; E11.40 Type 2 diabetes mellitus with diabetic neuropathy, unspecified; I25.10 Atherosclerotic heart disease of native coronary artery without angina pectoris; I25.2 Old myocardial infarction; Z79.4 Long term (current) use of insulin; Z79.82 Long term (current) use of aspirin; Z79.899 Other long term (current) drug therapy; Z87.891 Personal history of nicotine dependence; L84 Corns and callosities
CPT/HCPCS: 11042; 15275; 73630; 97597; 99212; Q4187

== ENCOUNTER 2021-08-17 12:11 | Outpatient (REF) | payer MEDICARE, OTHER, SELFPAY ==
[2021-08-17 13:59] LABS: MANUAL DIFF FLAG NO
[2021-08-17 14:04] LABS: Basophils Percent Auto 0.6 % (0-2); Eosinophils Absolute Auto 0.1 X10*3/uL (0.0-0.4); Eosinophils Percent Auto 1.8 % (0-4); Hematocrit 36.8 % (42.0-52.0); Hemoglobin 12.2 g/dl (14.0-18.0); Imm Gran Abs Auto 0.03 X10*3/uL (0.00-0.03); Imm Gran Pct Auto 0.6 % (0.0-0.4); Lymphocytes Absolute Auto 1.3 X10*3/uL (1.2-4.9); Lymphocytes Percent Auto 27.3 % (20-40); Mean Corpuscular HGB Conc 33.2 g/dl (31.0-36.0); Mean Corpuscular Volume 93.4 fL (80.0-98.0); Mean Platelet Volume 10.6 fL (9.4-12.4); Monocytes Absolute Auto 0.4 X10*3/uL (0.1-1.2); Neutrophils Percent Auto 60.7 % (45-73); Platelet Count 151 X10*3/uL (160-400); Red Blood Count 3.94 X10*6/uL (4.60-5.80); White Blood Count 4.9 X10*3/uL (4.8-10.8)
[2021-08-17 14:10] LABS: Estimated Average Glucose 169 mg/dL; Hemoglobin A1c % 7.5 %
[2021-08-17 14:23] LABS: B Type Natriuretic Peptide 82 pg/mL (<100)
[2021-08-17 14:25] LABS: Alanine Aminotransferase 35 U/L (0-40); Albumin Level 3.5 g/dL (3.5-5.0); Alkaline Phosphatase 112 U/L (39-117); Anion Gap 13 (12-20); Aspartate Amino Transferase 38 U/L (5-37); Bilirubin Total 0.5 mg/dL (0.0-1.0); Blood Urea Nitrogen 13 mg/dL (9-16); Calcium 9.4 mg/dL (8.4-10.2); Carbon Dioxide 30 mmol/L (22-29); Chloride 97 mmol/L (96-108); Cholesterol 164 mg/dL; Estimated Glomerular Filt Rate 48; Glucose Fasting 281 mg/dL (60-99); HDL Cholesterol 73 mg/dL; LDL Cholesterol Calculated 72 mg/dl; Potassium 4.3 mmol/L (3.3-5.1); Sodium 136 mmol/L (135-145); Total Protein 6.7 g/dL (6.5-8.0); Triglycerides 96 mg/dL
[2021-08-17 14:39] LABS: Prostate Specific Antigen 0.87 ng/mL (<0.05-4.0)
[2021-08-17 14:43] LABS: Creatinine Urine 50.83 mg/dL; Microalbumin Urine < 5.0 mg/L
== END 2021-08-17 12:12 | disposition home or self-care (01) ==
LOC: HO.HMGCLDS 12:11
PROVIDERS: Absent Provider Physician Assistant Medical; Visit Provider Internal Medicine
DX: D64.9 Anemia, unspecified (principal); E78.9 Disorder of lipoprotein metabolism, unspecified; K21.9 Gastro-esophageal reflux disease without esophagitis; N40.1 Benign prostatic hyperplasia with lower urinary tract symptoms; N13.8 Other obstructive and reflux uropathy; E11.40 Type 2 diabetes mellitus with diabetic neuropathy, unspecified; I42.9 Cardiomyopathy, unspecified; K70.9 Alcoholic liver disease, unspecified; N18.30 Chronic kidney disease, stage 3 unspecified; R18.8 Other ascites; K76.9 Liver disease, unspecified; Z09 Encounter for follow-up examination after completed treatment for conditions other than malignant neoplasm; Z71.89 Other specified counseling; Z79.4 Long term (current) use of insulin; Z12.5 Encounter for screening for malignant neoplasm of prostate
CPT/HCPCS: 36415; 80053; 80061; 82043; 83036; 83880; 84153; 85025

== ENCOUNTER 2021-09-03 09:38 | Outpatient (REF) | payer MEDICARE, OTHER, SELFPAY ==
[2021-09-03 12:18] LABS: MANUAL DIFF FLAG NO
[2021-09-03 13:01] LABS: Basophils Percent Auto 0.6 % (0-2); Eosinophils Absolute Auto 0.1 X10*3/uL (0.0-0.4); Hematocrit 38.7 % (42.0-52.0); Hemoglobin 13.2 g/dl (14.0-18.0); Imm Gran Abs Auto 0.03 X10*3/uL (0.00-0.03); Imm Gran Pct Auto 0.4 % (0.0-0.4); Lymphocytes Absolute Auto 1.9 X10*3/uL (1.2-4.9); Lymphocytes Percent Auto 25.9 % (20-40); Mean Corpuscular HGB Conc 34.1 g/dl (31.0-36.0); Mean Corpuscular Hemoglobin 31.3 pg (27.0-33.0); Mean Corpuscular Volume 91.7 fL (80.0-98.0); Mean Platelet Volume 10.4 fL (9.4-12.4); Monocytes Absolute Auto 0.6 X10*3/uL (0.1-1.2); Monocytes Percent Auto 8.7 % (2-11); Neutrophils Absolute Auto 4.6 x10*3/uL (2.0-8.3); Neutrophils Percent Auto 63.4 % (45-73); Platelet Count 202 X10*3/uL (160-400); Red Blood Count 4.22 X10*6/uL (4.60-5.80); White Blood Count 7.2 X10*3/uL (4.8-10.8)
[2021-09-03 13:44] LABS: Alanine Aminotransferase 29 U/L (0-40); Albumin Level 3.8 g/dL (3.5-5.0); Alkaline Phosphatase 103 U/L (39-117); Anion Gap 12 (12-20); Aspartate Amino Transferase 28 U/L (5-37); Bilirubin Total 0.5 mg/dL (0.0-1.0); Blood Urea Nitrogen 18 mg/dL (9-16); Calcium 9.9 mg/dL (8.4-10.2); Carbon Dioxide 29 mmol/L (22-29); Chloride 97 mmol/L (96-108); Estimated Glomerular Filt Rate 47; Glucose Random 356 mg/dL (60-115); Lipase 6 U/L (8-78); Potassium 4.6 mmol/L (3.3-5.1); Sodium 133 mmol/L (135-145); Total Protein 7.1 g/dL (6.5-8.0)
[2021-09-03 14:55] LABS: Folate > 20.0 ng/mL (> or = 4.0); Vitamin B12 707 pg/mL (200-900)
[2021-09-05 09:13] LABS: Carbohydrate Antigen 19-9 23 U/mL (<34)
== END 2021-09-03 09:39 | disposition home or self-care (01) ==
LOC: HO.LAB 09:38
PROVIDERS: PCP Internal Medicine; Referring Provider Internal Medicine; Visit Provider Internal Medicine Gastroenterology
DX: K86.0 Alcohol-induced chronic pancreatitis (principal); K70.31 Alcoholic cirrhosis of liver with ascites
CPT/HCPCS: 36415; 80053; 82105; 82378; 82607; 82746; 83690; 85025; 86301; 99212

== ENCOUNTER 2021-09-10 07:00 | Outpatient (REF) | payer MEDICARE, OTHER, SELFPAY ==
[2021-09-15 15:26] LABS: Fecal Fat Qualitative Normal (Normal)
[2021-09-16 22:03] LABS: Pancreatic Elastase-1 <15 mcg/g
== END 2021-09-10 07:01 | disposition home or self-care (01) ==
LOC: HO.LNP 07:00
PROVIDERS: Visit Provider Internal Medicine Gastroenterology
DX: K86.0 Alcohol-induced chronic pancreatitis (principal)
CPT/HCPCS: 82656; 82705

== ENCOUNTER 2021-09-16 07:15 | Outpatient (REF) | payer MEDICARE, OTHER, SELFPAY ==
--- NOTE | ~2021-09-16 | MR_ITS ---
EXAMINATION: MR ABDOMEN WITHOUT CONTRAST CLINICAL INFORMATION: Alcoholic-induced chronic pancreatitis. Abdominal pain. COMPARISON: None. TECHNIQUE: MR abdomen is performed without gadolinium contrast. MRCP sequences were also performed. Exam is limited due to motion artifact. FINDINGS: LUNG BASES: The visualized lung bases are unremarkable. LIVER, GALLBLADDER, AND BILIARY TREE: The liver is normal in size, smooth in contour, and normal in signal. No focal hepatic lesion or biliary ductal dilatation is present. Common bile duct measures 5 mm. The gallbladder is upper normal in size. No gallstones are seen. No evidence of gallbladder wall thickening, or obvious pericholecystic inflammatory changes. PANCREAS: The pancreas appears atrophic. The main pancreatic duct appears dilated measuring up to 1 cm. The very distal main pancreatic duct in the uncinate process of the head of the pancreas near the ampulla is not well-visualized and may be narrowed questionable for a stricture. There is also difficult to exclude variant pancreatic duct anatomy. The pancreas appears normal in signal. The peripancreatic fat appears normal in signal. There is no evidence of pancreatitis. SPLEEN: Unremarkable. ADRENAL GLANDS: Unremarkable. KIDNEYS AND URETERS: There is a 1.5 cm probable left renal cyst in the upper pole. The kidneys are normal in size and shape. No hydronephrosis. No perinephric stranding. GASTROINTESTINAL TRACT: No bowel obstruction. No ascites or fluid collection. ABDOMINAL WALL: No significant hernia is appreciated. LYMPH NODES: No lymphadenopathy. VASCULAR: Unremarkable. OSSEOUS STRUCTURES: There are degenerative changes of the spine. MR/MR MRCP IMPRESSION: Limited exam due to motion artifact. Atrophic changes of the pancreas. Dilatation of the main pancreatic duct measuring up to 1 cm. The very distal main pancreatic duct in the uncinate process of the head of the pancreas is not well-visualized and may be narrowed. Appearance is questionable for a distal pancreatic duct stricture. No evidence of acute pancreatitis seen. Upper normal-size gallbladder. No gallstones. Normal caliber intra and extrahepatic bile ducts.
== END 2021-09-16 07:16 | disposition home or self-care (01) ==
LOC: HO.MRI 07:15
PROVIDERS: Visit Provider Internal Medicine Gastroenterology
DX: K86.0 Alcohol-induced chronic pancreatitis (principal)
CPT/HCPCS: 74181

== ENCOUNTER → 2022-01-18 08:26 | Outpatient (BNVA) | payer MEDICARE, OTHER, SELFPAY | PROVIDERS: PCP Internal Medicine; Visit Provider Internal Medicine | DX: G89.4 Chronic pain syndrome (principal); E11.40 Type 2 diabetes mellitus with diabetic neuropathy, unspecified | CPT/HCPCS: 99202 ==

== ENCOUNTER → 2022-03-22 10:34 | Outpatient (BNVA) | payer MEDICARE, OTHER, SELFPAY | PROVIDERS: PCP Internal Medicine; Visit Provider Internal Medicine | DX: E11.40 Type 2 diabetes mellitus with diabetic neuropathy, unspecified (principal) | CPT/HCPCS: 99212 ==

== ENCOUNTER 2022-04-28 09:21 | Outpatient (REF) | payer MEDICARE, OTHER, SELFPAY ==
[2022-04-28 11:13] LABS: MANUAL DIFF FLAG NO
[2022-04-28 11:20] LABS: Basophils Absolute Auto 0.1 X10*3/uL (0.0-0.2); Eosinophils Absolute Auto 0.2 X10*3/uL (0.0-0.4); Eosinophils Percent Auto 2.1 % (0-4); Hematocrit 38.2 % (42.0-52.0); Hemoglobin 12.7 g/dl (14.0-18.0); Imm Gran Abs Auto 0.04 X10*3/uL (0.00-0.03); Imm Gran Pct Auto 0.4 % (0.0-0.4); Lymphocytes Absolute Auto 2.8 X10*3/uL (1.2-4.9); Lymphocytes Percent Auto 30.5 % (20-40); Mean Corpuscular HGB Conc 33.2 g/dl (31.0-36.0); Mean Corpuscular Hemoglobin 31.8 pg (27.0-33.0); Mean Corpuscular Volume 95.7 fL (80.0-98.0); Mean Platelet Volume 10.3 fL (9.4-12.4); Monocytes Absolute Auto 0.8 X10*3/uL (0.1-1.2); Monocytes Percent Auto 8.2 % (2-11); Neutrophils Absolute Auto 5.3 x10*3/uL (2.0-8.3); Neutrophils Percent Auto 57.8 % (45-73); Platelet Count 201 X10*3/uL (160-400); Red Blood Count 3.99 X10*6/uL (4.60-5.80); Red Cell Distribution Width 12.9 % (11.0-16.0); White Blood Count 9.2 X10*3/uL (4.8-10.8)
[2022-04-28 11:43] LABS: Anion Gap 15 (12-20); Bilirubin Total 0.4 mg/dL (0.0-1.0); Blood Urea Nitrogen 31 mg/dL (9-16); Calcium 9.9 mg/dL (8.4-10.2); Carbon Dioxide 20 mmol/L (22-29); Chloride 108 mmol/L (96-108); Estimated Glomerular Filt Rate 43; Glucose Random 89 mg/dL (60-115); Potassium 4.6 mmol/L (3.3-5.1); Sodium 138 mmol/L (135-145)
[2022-04-28 11:44] LABS: Alanine Aminotransferase 42 U/L (0-40); Albumin Level 4.7 g/dL (3.5-5.0); Alkaline Phosphatase 82 U/L (39-117); Aspartate Amino Transferase 31 U/L (5-37); Total Protein 7.5 g/dL (6.5-8.0)
[2022-04-29 13:51] LABS: LDL Cholesterol Direct 35 mg/dL (<100)
== END 2022-04-28 09:22 | disposition home or self-care (01) ==
LOC: HO.HMGCLDS 09:21
PROVIDERS: PCP Internal Medicine; Visit Provider Internal Medicine
DX: E11.40 Type 2 diabetes mellitus with diabetic neuropathy, unspecified (principal); G47.9 Sleep disorder, unspecified; E78.9 Disorder of lipoprotein metabolism, unspecified; D64.9 Anemia, unspecified; F33.9 Major depressive disorder, recurrent, unspecified; Z79.4 Long term (current) use of insulin
CPT/HCPCS: 36415; 80053; 83721; 85025

== ENCOUNTER → 2022-05-17 11:45 | Outpatient (BNVA) | payer MEDICARE, OTHER, SELFPAY | PROVIDERS: PCP Internal Medicine; Visit Provider Internal Medicine | DX: G89.4 Chronic pain syndrome (principal); E11.40 Type 2 diabetes mellitus with diabetic neuropathy, unspecified | CPT/HCPCS: 99212 ==

== ENCOUNTER → 2022-07-30 08:48 | Outpatient (BNVA) | payer MEDICARE, OTHER, SELFPAY | PROVIDERS: PCP Internal Medicine; Visit Provider Internal Medicine | DX: E11.40 Type 2 diabetes mellitus with diabetic neuropathy, unspecified (principal) | CPT/HCPCS: 99212 ==

== ENCOUNTER → 2022-09-16 08:27 | Outpatient (BNVA) | payer MEDICARE, OTHER, SELFPAY | PROVIDERS: PCP Internal Medicine; Visit Provider Internal Medicine Gastroenterology | DX: R93.5 Abnormal findings on diagnostic imaging of other abdominal regions, including retroperitoneum (principal) | CPT/HCPCS: 99212 ==

== ENCOUNTER 2022-10-06 12:46 | Outpatient (REF) | payer MEDICARE, OTHER, SELFPAY ==
[2022-10-06 14:24] LABS: Alanine Aminotransferase 29 U/L (0-40); Albumin Level 4.2 g/dL (3.5-5.0); Alkaline Phosphatase 116 U/L (39-117); Anion Gap 12 (12-20); Aspartate Amino Transferase 20 U/L (5-37); Bilirubin Total 0.4 mg/dL (0.0-1.0); Blood Urea Nitrogen 26 mg/dL (9-16); Calcium 8.9 mg/dL (8.4-10.2); Carbon Dioxide 21 mmol/L (22-29); Chloride 111 mmol/L (96-108); Estimated Glomerular Filt Rate 34; Glucose Random 155 mg/dL (60-115); Potassium 4.3 mmol/L (3.3-5.1); Sodium 140 mmol/L (135-145); Total Protein 6.8 g/dL (6.5-8.0)
== END 2022-10-06 12:47 | disposition home or self-care (01) ==
LOC: HO.HMGCLDS 12:46
PROVIDERS: PCP Internal Medicine; Visit Provider Internal Medicine
DX: E78.9 Disorder of lipoprotein metabolism, unspecified (principal)
CPT/HCPCS: 36415; 80053

== ENCOUNTER → 2022-11-19 09:55 | Outpatient (BNVA) | payer MEDICARE, OTHER, SELFPAY | PROVIDERS: PCP Internal Medicine; Visit Provider Internal Medicine | DX: E11.40 Type 2 diabetes mellitus with diabetic neuropathy, unspecified (principal) | CPT/HCPCS: 99212 ==

== ENCOUNTER → 2023-01-03 08:35 | Outpatient (BNVA) | payer MEDICARE, OTHER, SELFPAY | PROVIDERS: PCP Internal Medicine; Visit Provider Internal Medicine | DX: E11.40 Type 2 diabetes mellitus with diabetic neuropathy, unspecified (principal); E11.621 Type 2 diabetes mellitus with foot ulcer; E11.69 Type 2 diabetes mellitus with other specified complication; L97.419 Non-pressure chronic ulcer of right heel and midfoot with unspecified severity; M86.9 Osteomyelitis, unspecified; Z79.4 Long term (current) use of insulin; Z79.899 Other long term (current) drug therapy | CPT/HCPCS: 17999; 99212; J7336 ==

== ENCOUNTER → 2023-01-20 07:57 | Outpatient (BNVA) | payer MEDICARE, OTHER, SELFPAY | PROVIDERS: PCP Internal Medicine; Visit Provider Internal Medicine Gastroenterology | DX: K70.31 Alcoholic cirrhosis of liver with ascites (principal); K86.0 Alcohol-induced chronic pancreatitis; R93.5 Abnormal findings on diagnostic imaging of other abdominal regions, including retroperitoneum | CPT/HCPCS: 99212 ==

== ENCOUNTER 2023-03-01 08:49 | Outpatient (REF) | payer MEDICARE, OTHER, SELFPAY ==
--- NOTE | ~2023-03-01 | US_ITS ---
EXAMINATION: US ABDOMEN COMPLETE CLINICAL INFORMATION: Alcoholic cirrhosis of liver with ascites. COMPARISON: Ultrasound kidneys and bladder dated 04/21/2022. CT of abdomen and pelvis without contrast dated 02/19/2022. MR abdomen without contrast dated 09/16/2021. TECHNIQUE: Real-time imaging of the abdominal viscera. FINDINGS: PANCREAS: Calcifications in the pancreas. The main pancreatic duct is dilated measuring up to 9 mm. The pancreas appears atrophic. ABDOMINAL AORTA: There is atherosclerotic disease. The abdominal aorta is normal in caliber. INFERIOR VENA CAVA: Visualized portions are normal. LIVER: Normal. The liver is normal in size. The liver contour is normal. Parenchymal echogenicity is normal. No focal hepatic lesion. There is no intrahepatic biliary duct dilatation seen. GALLBLADDER: The gallbladder is physiologically distended without evidence of stones, sludge, polyps, wall thickening or pericholecystic fluid. COMMON BILE DUCT: Normal in caliber measuring 0.75 cm in diameter. RIGHT KIDNEY: Normal. No hydronephrosis. No renal calculi or focal parenchymal lesions. The kidney measures 9.5 cm in maximum dimension. LEFT KIDNEY: There is a 2 cm cyst in the upper pole. No imaging follow-up recommended. No hydronephrosis or renal calculi. The kidney measures 10.0 cm in maximum dimension. SPLEEN: Normal. The spleen measures 10.5 cm in maximum dimension. FREE FLUID: None. US/US abdomen complete IMPRESSION: Normal-appearing liver. No evidence of cirrhosis or ascites. Evidence of chronic pancreatitis with atrophic changes of the pancreas, calcifications and dilated main pancreatic duct.
== END 2023-03-01 08:50 | disposition home or self-care (01) ==
LOC: HO.HMGCX 08:49
PROVIDERS: PCP Internal Medicine; Visit Provider Internal Medicine Gastroenterology
DX: K70.31 Alcoholic cirrhosis of liver with ascites (principal); K86.0 Alcohol-induced chronic pancreatitis
CPT/HCPCS: 76700

== ENCOUNTER 2023-03-25 10:26 | Day surgery (SDC) | payer MEDICARE, OTHER, SELFPAY ==
[2023-03-23 14:50] VITALS: BMI 20.9
[2023-03-25 11:16] VITALS: BP 162/92; PULSE 66; RESP 16; TEMP 36.2; O2SAT 100
[2023-03-25 11:22] LABS: Glucose, Whole Blood 111 mg/dL (60-115)
[2023-03-25] MEDS: Lactated Ringers 1,000 ML 50 ML IVCONT (11:31)
--- NOTE | 2023-03-25 11:38 | P.CONAN_ITS ---
HPI - Anesthesia Eval Consult details Narrative: for riaz henriquez [facility] Active Problems Active Problems: All Active Problems (Updated 03/24/23 @ 10:53 by Sarah Lindquist RN) shelter (current) use of insulin (Acute) Insulin dependent diabetes mellitus with complications (Acute) Diabetic neuropathy (Acute) Coronary artery disease (Acute) Lipid disorder (Acute) Hearing difficulty (Acute) Encounter for general adult medical examination with abnormal findings (Acute) Establishing care with new doctor, encounter for (Acute) Normocytic anemia (Acute) Acute on chronic anemia (Acute) Osteomyelitis of left foot (Acute) Acute diastolic (congestive) heart failure (Acute) Diabetic ulcer of left foot (Acute) Major depression, recurrent (Acute) Hospital discharge follow-up (Acute) Benign prostatic hyperplasia (Acute) Acid reflux (Acute) 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 condition (Acute) Swelling of lower extremity (Acute) Water retention (Acute) Cellulitis of leg, left (Acute) Pre-op evaluation (Acute) Cataract (Acute) Low blood pressure (Acute) History of alcohol abuse (Acute) Alcoholic liver disease (Acute) Ascites (Acute) Cardiomyopathy (Acute) Stage III chronic kidney disease (Acute) DNR (do not resuscitate) discussion (Acute) Diabetic ulcer of right foot (Acute) Chronic alcoholic pancreatitis (Acute) Alcoholic cirrhosis of liver with ascites (Acute) Weight loss (Acute) Uncontrolled diabetes mellitus (Acute) Abnormal MRI of abdomen (Acute) Chronic pain syndrome (Acute) Difficulty sleeping (Acute) Painful diabetic neuropathy (Acute) Diet-controlled diabetes mellitus (Acute) Unstable gait (Acute) Past Medical History Medical History Anemia Bunion CAD (coronary artery disease) Cataracts, bilateral Chronic diabetic ulcer of right foot determined by examination Chronic kidney disease Diabetes GERD (gastroesophageal reflux disease) Hearing difficulty Heart attack High cholesterol Hypertension Macrocytic anemia Neuropathy Osteomyelitis Family History Family History Sister HTN (hypertension) Sister HTN (hypertension) Father Heart disease Heart attack Mother Kidney failure Family history of problems with anesthesia: No Surgical History Surgical History H/O colonoscopy H/O heart bypass surgery H/O rotator cuff surgery History of bunionectomy of right great toe Hx of cystoscopy Hx of endoscopy Hx of heart artery stent History of Problems with Anesthesia: No Social History Social History Household Members: Significant Other Housing: [facility] Are you a primary care team assistant to a significant other at home: No Do you presently have visiting nurse or other home services: No Alcohol intake: current Alcohol intake frequency: former alcohol drinker Alcohol type: beer Patient Tobacco Use Status: Former Tobacco user Quit Date: 2005 Tobacco use type: Cigarette Cigarette Packs Per Day: 1 Cigarettes Per Day: 20 Years Smoked: 15 e-Cigarette/Vaping Use: Never Used Use of substances other than those prescribed or required for medical reasons: Yes Substance Use Type: Marijuana Substance Use Type Other:: marijuana lozenge prn Substance Use Frequency: Occasionally Have you been hit, kicked, punched, or otherwise hurt by someone within the past year? If so, by whom?: No Are you DNR?: No Advance Directives Information Provided: Yes (as above noted) Advance Directives on File: No Recently lost weight without trying: No Eating poorly because of decreased appetite: No Nutrition Risks: No Nutritional Risk service: No Current occupational status: unemployed Cognitive needs: No Hearing needs: No Vision needs: No Meds Allergies Allergy/AdvReac Type Severity Reaction Status Date / Time codeine Allergy Unknown Unknown Verified 03/25/23 11:02 Active Medications: Current Medications Lactated Ringer's (Lr) 1,000 mls @ 50 mls/hr IVCONT .Q20H LIDYA Last Admin: 03/25/23 11:31 Dose: 50 mls/hr Home Medications Medication Instructions Recorded Confirmed Last Taken Type aspirin 81 mg tablet,delayed 81 mg PO BEDTIME 12/12/20 03/25/23 03/23/23 History release blood-glucose meter #1 ea 12/12/20 03/25/23 Unknown History lancets 28 gauge #100 ea 12/12/20 03/25/23 Unknown History multivitamin 1 tab PO DAILY 12/12/20 03/25/23 12/12/20 History insulin aspart U-100 100 unit/mL 6 - 9 sliding scale dose subcut BID 09/16/22 03/25/23 02/23/23 History (3 mL) subcutaneous pen (Novolog FlexPen U-100 Insulin aspart) insulin detemir U-100 100 unit/mL 17 unit subcut DAILY 03/23/23 03/25/23 03/23/23 History (3 mL) subcutaneous pen (Levemir FlexPen) Exam Exam Date and Time: March 25, 2023 1138 Height,Weight and Vital Signs: Height 5 ft 11 in Weight 68.039 kg Last Vital Signs Temp 97.1 F 03/25/23 11:16 Pulse 66 03/25/23 11:16 Resp 16 03/25/23 11:16 BP 162/92 H 03/25/23 11:16 Pulse Ox 100 03/25/23 11:16 O2 Del Method Room Air 03/25/23 11:16 Pertinent Lab Results Pertinent Lab Results: Laboratory Tests 03/25/23 11:19 POC Glucose 111 Airway Mallampati Class: III TM Dist: >3cm Neck ROM: Full Heart: rrr Lungs: cta Assessment and Plan Assessment Anesthesia Assessment: Anesthesia Plan Discussed and Chart Reviewed Final Anesthetic Review Family History of Problems with Anesthesia: No History of Problems with Anesthesia: No NPO: Yes ASA Class: III Final Preanesthetic Review: No Changes in Pt Med Stat, Meds/Allgs Chart Reviewed, Consent Obtained/Reviewed, Anes Risks/Benef Reviewed and DNR Form (If Appl.) (reversed ) Patient Risk: Intermediate Procedure Risk: Low Anesthetic Plan Anesthetic Plan: MAC: Disposition: Standard PACU
--- NOTE | 2023-03-25 12:00 | MHC.SHP ---
Pre-Procedural Eval Section A Date of Service: 03/25/23 The patient is an INPATIENT: No The History & Physical has been completed within 30 days and I have reviewed it.: No Section B Chief Complaint: Abnormal findings on diagnostic imaging, cirrhosis Relevant Family History (Specify if Yes): No Relevant Social History: Tobacco Use (FORMER SMOKER) Present Medications: see Short Stay Collaborative assessment Medical History: Significant History (CAD (coronary artery disease) Cataracts, bilateral Chronic diabetic ulcer of right foot determined by examination Diabetes Hearing difficulty Heart attack High cholesterol Hypertension Macrocytic anemia Neuropathy Osteomyelitis) History of Previous Operations: Relevant previous surgery/procedure and date(s) (H/O heart bypass surgery H/O rotator cuff surgery History of bunionectomy of right great toe Hx of endoscopy) Allergies: Allergies Allergy/AdvReac Type Severity Reaction Status Date / Time codeine Allergy Unknown Unknown Verified 03/25/23 11:02 Review of Systems Sugical H&P ROS: Negative: Constitution, Cardiovascular, Respiratory and Gastrointestinal Exam Surgical H&P Exam: Normal: Heart, Normal: Lungs, Normal: Extremities and Normal: Abdomen Plan Diagnosis/Plan: Unchanged I have reviewed the history and physical and performed a pertinent physical examination on my patient. No changes have occurred unless specified. Time Spent With Patient Time: Total time managing care of this patient today ____ minutes.
--- NOTE | 2023-03-25 12:07 | W.PM.OPN ---
Operative Note Operative Note Date of Service: 03/25/23 Narrative: COLONOSCOPY TILL CECUM WITH SNARE POLYPECTOMY, SUBMUCOSAL INJECTION AND HEMOCLIP PLACEMENT Pre-op diagnosis: Colon cancer screening, history of colon polyps Post-op diagnosis:? Colon polyp, diverticulosis Endoscopist:? Elisha Estevez MD Anesthesia:?MAC Consent: Indications for the procedure and potential complications of bleeding, perforation, reaction to medications and missed diagnosis were discussed with the patient and informed consent was obtained. Instrument: Olympus PCF H 190 L variable stiffness pediatric colonoscope Monitoring: Vital signs and clinical assessment, intermittent blood pressure monitoring, continuous EKG monitoring, Pulse oximetry and Carbon Dioxide monitoring were done throughout the procedure. Please see anesthesia flowsheet. Colon withdrawl time was 27 minutes. Procedure: The patient was placed in the left lateral decubitis position and pre-procedure medications were administered. After a digital rectal examination of the ano-rectum, the video colonoscope was inserted into the rectum and advanced through the colon to the cecum. The colonoscope was slowly withdrawn in a retrograde panoramic fashion and the colon mucosa was carefully examined including a retroflexed view of the rectum. Findings and interventions are described below. Procedure Difficulty: Colon was long and there was some loop formation Findings: Terminal Ileum: Not evaluated Cecum: Normal Ascending Colon: A 2 cms flat polyp at the hepatic flexure. Polyp was raised with 5 cc of Eleview and removed with a stiff hot snare. Polypectomy site was closed with 3 hemoclips and marked by Ngoc ink Transverse Colon: Moderate diverticulosis scattered throughout the colon Descending Colon: Moderate diverticulosis scattered throughout the colon Sigmoid Colon: Moderate diverticulosis Rectum: A 10 mm sessile polyp just inside the anal verge -removed with a hot snare Ano-rectum: Normal Colon preparation: Good after copious irrigation Impression and Post Procedure Diagnosis: Colonoscopy Findings: Two medium sized polyps removed Moderate diverticulosis seen in the entire colon Plan: I will send a letter with pathology results Patient has an appointment on 05/26/23 in the GI Clinic with Elisha Estevez M.D. Repeat Colonoscopy interval based on path results - in 2-3 years if polyps are adenomatous and to check polypectomy site at the hepatic flexure. Colon polyps and diverticulosis handouts were given in the discharge area
[2023-03-25 13:05] VITALS: BP 125/70; PULSE 65; RESP 12; TEMP 36.6; O2SAT 100
[2023-03-25 13:20] VITALS: BP 134/76; PULSE 63; RESP 16; TEMP 36.6; O2SAT 100
[2023-03-25 13:32] VITALS: BP 152/83; PULSE 65; RESP 20; TEMP 36.6; O2SAT 100
== END 2023-03-25 13:55 | disposition home or self-care (01) ==
PROVIDERS: PCP Internal Medicine; Visit Provider Internal Medicine Gastroenterology
PROC: 0DJD8ZZ Inspection of Lower Intestinal Tract, Via Natural or Artificial Opening Endoscopic (ICD-10-PCS; CPT 45378; principal; 2023-03-25 12:00)
DX: D12.3 Benign neoplasm of transverse colon (principal); D12.8 Benign neoplasm of rectum; K57.30 Diverticulosis of large intestine without perforation or abscess without bleeding; R93.5 Abnormal findings on diagnostic imaging of other abdominal regions, including retroperitoneum; K70.31 Alcoholic cirrhosis of liver with ascites; K86.0 Alcohol-induced chronic pancreatitis; E11.22 Type 2 diabetes mellitus with diabetic chronic kidney disease; I13.0 Hypertensive heart and chronic kidney disease with heart failure and stage 1 through stage 4 chronic kidney disease, or unspecified chronic kidney disease; N18.9 Chronic kidney disease, unspecified; I50.9 Heart failure, unspecified; D64.9 Anemia, unspecified; Z95.1 Presence of aortocoronary bypass graft; Z87.891 Personal history of nicotine dependence; Z79.4 Long term (current) use of insulin; F12.90 Cannabis use, unspecified, uncomplicated
CPT/HCPCS: 45385; 82947; 88305; J2371

== ENCOUNTER → 2023-03-25 10:26 | Outpatient (BNV) | payer MEDICARE, OTHER, SELFPAY | PROVIDERS: PCP Internal Medicine; Visit Provider Internal Medicine Gastroenterology | DX: Z12.11 Encounter for screening for malignant neoplasm of colon (principal); Z86.010 Personal history of colon polyps; K57.30 Diverticulosis of large intestine without perforation or abscess without bleeding; D12.2 Benign neoplasm of ascending colon; D12.8 Benign neoplasm of rectum | CPT/HCPCS: 45381; 45385 ==

== ENCOUNTER 2023-03-30 10:51 | Outpatient (AMB) | payer MEDICARE, OTHER, SELFPAY ==
--- NOTE | 2023-03-30 10:52 | AM.OFFVISMDC ---
Intake Vital Signs 03/30/23 10:55 Height 5 ft 11 in Weight 151 lb 2 oz BMI 21.1 BP 132/76 Blood Pressure Location Lt brachial Position Sitting Pulse 66 Pulse Source Pulse Oximeter Pulse Oximetry (%) 99 Oxygen Delivery Method Room Air Intake Visit Reasons: AWV Allergies codeine Allergy (Unknown, Verified 03/30/23 10:55) Unknown Medication List - Last Reconciled 03/30/23 by Rufino Rajput MD aspirin 81 mg PO BEDTIME atorvastatin 20 mg PO DAILY 90 days blood-glucose meter As directed insulin aspart U-100 (Novolog FlexPen U-100 Insulin aspart) 6 - 9 sliding scale doses subcut BID insulin detemir U-100 (Levemir FlexPen) 17 units subcut DAILY lancets As directed bkyaaw-avojcrxh-erpmleb 24,000-76,000 -120,000 unit (Creon) 1 cap PO TID multivitamin 1 tab PO DAILY pen needle, diabetic B.i.d. pregabalin 150 mg PO TID pregabalin 150 mg PO TID spironolactone 25 mg PO DAILY thiamine mononitrate (vit B1) 100 mg PO DAILY 90 days Do you need a note to return to daycare/school/sports/work: No HPI AWV HPI Details Patient came in today to have a follow-up on lipid disorder and Medicare wellness visit he is due for labs.? Patient says that he had extensive labs done through endocrinology office he will provide me with a reports Patient is getting atorvastatin through this office Patient is seeing number for the providers including ordnance equipment worker and bus and sys integration senior manager for the management of his chronic kidney disease and diabetes mellitus He also does to pain management for chronic neuropathy Diabetic neuropathy:? Pain management through [facility] Patient is on Lyrica 75 mg b.i.d. And duloxetine 30 mg b.i.d. Kidney stones:? [facility] had [facility] cystoscopy for left stent removal last year That was placed for ureteral calculi after surgical intervention Liver cirrhosis secondary to alcohol use:? Causing is ascites off and on, managed by [facility] Gastroenterology Dr. Estevez Providers patient is seeing our And endocrinology [facility] for diabetes management. Dr Duarte Nephrology: Dr Les Dunlap Cardio : Dr Galeana Urology Dr Mora Pain managment [facility] Garcia Ophthalmology Dr. Ching Podiatry Dr. Luis Urology Dr. Quezada HPI Comments History of Present Illness Details AWV Medical/social history reviewed Past medical history reviewed [place] of care / care team list updated Surgical/ hospitalization history reviewed Current medications including OTC and supplements reviewed Family history reviewed Tobacco controlled form updated Alcohol use form updated Illicit drug use in social history reviewed Current diagnosis of depression ?screening updated Appropriate PHQ 2/PHQ-9 completed . Vital signs reviewed Alcohol tobacco drug use reviewed and discussed . MMSE completed . ? Fall risk: ?Assessed Fall history: ?None Have you had any falls with injury in the past year?? No Have you had 2 or more falls in the past year?? No Fall risk assessment completed Home safety discussed with the patient Functional ability assessed and discussed and documented Activities of daily living reviewed and appropriate actions taken . HRA filled out by the patient and reviewed by provider and scanned . Appropriate written screening schedule established . Any health advise needed provided . Advance care planning discussed with the patient , necessary paperwork filled Examination IPPE/AWE: Balance intact Romberg intact Tandem walk failed walk-in turn intact rise from sit to stand intact . ?Hearing ?whisper test failed . Medication list reviewed, patient is stable on medications All other providers patient is seeing discussed and noted . [facility] Medical History Anemia Bunion CAD (coronary artery disease) Cataracts, bilateral Chronic diabetic ulcer of right foot determined by examination Chronic kidney disease Diabetes GERD (gastroesophageal reflux disease) Hearing difficulty Heart attack High cholesterol Hypertension Macrocytic anemia Neuropathy Osteomyelitis Surgical History H/O colonoscopy H/O heart bypass surgery H/O rotator cuff surgery History of bunionectomy of right great toe Hx of cystoscopy Hx of endoscopy Hx of heart artery stent Family History Sister HTN (hypertension) Sister HTN (hypertension) Father Heart disease Heart attack Mother Kidney failure Social History Household Members: Significant Other Housing: Condominium Are you a primary patient care secretary to a significant other at home: No Do you presently have visiting nurse or other home services: No Alcohol intake: current Alcohol intake frequency: former alcohol drinker Alcohol type: beer Patient Tobacco Use Status: Former Tobacco user Quit Date: 2005 Tobacco use type: Cigarette Cigarette Packs Per Day: 1 Cigarettes Per Day: 20 Years Smoked: 15 e-Cigarette/Vaping Use: Never Used Substance Use Type: Marijuana service: No Current occupational status: unemployed Cognitive needs: No Hearing needs: No Vision needs: No Questionnaire Medicare Wellness Checkup What [age] What gender do you identify with?: male During the past 4 weeks, how much have you been bothered by emotional problems such as feeling anxious, depressed, irritable, sad or downhearted, and blue?: slightly During the past 4 weeks, has your physical & emotional health limited your social activities with family, friends, neighbors, or groups?: not at all During the past 4 weeks, how much bodily pain have you generally had?: moderate pain During the past 4 weeks, was someone available to help you if you needed & wanted help?: yes, as much as I wanted During the past 4 weeks, what was the hardest physical activity you could do for at least 2 minutes?: moderate Can you get to places out of walking distance without help? (For eg., can you travel alone on buses, taxis or drive your car?): Yes Can you go shopping for groceries or clothes without someone's help?: Yes Can you prepare your own meals?: Yes Can you do your housework without help?: Yes Because of any health problems, do you need the help of another person with your personal care needs such as eating, bathing, dressing or getting around the house?: No Can you handle your own money without help?: Yes During the past 4 weeks, how would you rate your health in general?: fair During the past 4 weeks how have things been going for you?: good & bad parts about equal Are you having difficulties driving your car?: not applicable, I don't use a car Do you always fasten your seat belt when you are in a car?: yes, usually During past 4 weeks, have you been bothered by the following: never: Trouble eating well? and Problems using the telephone?, sometimes: Falling or dizzy when standing up and Tiredness or fatigue? and often: Teeth or denture problems? Have you fallen 2 or more times in the past year?: No Are you afraid of falling?: Yes Are you a smoker?: no During the past 4 weeks, how many drinks of wine, beer, or other alcoholic beverages did you have?: no alcohol at all Do you exercise for about 20 minutes 3 or more times a week?: no, I usually do not exercise this much Have you been given information to help with the following?: yes: Hazards in your house that might hurt you? and yes: Keeping track of your medications? How often do you have trouble taking medicines the way you have been told to take them?: I always take medicine as prescribed How confident are you that you can control & manage most of your health problems?: somewhat confident What is your race?: White PHQ-9 Over the last 2 weeks, how often have you been bothered by any of the following problems? 1. Little interest or pleasure in doing things: not at all 2. Feeling down, depressed, or hopeless: several days 3. Trouble falling or staying asleep, or sleeping too much: several days 4. Feeling tired or having little energy: several days 5. Poor appetite or overeating: not at all 6. Feeling bad about yourself - or that you are a failure or have let yourself or your family down: several days 7. Trouble concentrating on things, such as reading the newspaper or watching television: several days 8. Moving or speaking so slowly that other people could have noticed. Or the opposite - being so fidgety or restless that you have been moving around a lot more than usual: several days 9. Thoughts that you would be better off or of hurting yourself in some way: not at all Total score: 6 Depression Screening Interpretation: Negative [id number] - PHQ-9 Billing: Yes Source: Developed by Drs. Ted Hong, Mera Davenport, Jayro Elizabeth and colleagues, with an educational steffany from [employer]. Review of Systems Const Denies chills and Denies fever(s) ENT Denies epistaxis and Denies nasal discharge Card Denies chest pain Resp Denies chest congestion, Denies cough and Denies hemoptysis GI Denies diarrhea and Denies nausea Skin/Breast Denies rash Neuro Reports no additional complaints Psych Reports no additional complaints Endo Reports no additional complaints Physical Exam Vital Signs: Last Vital Signs Pulse 66 09/06/23 10:55 BP 132/76 03/30/23 10:55 Pulse Ox 99 03/30/23 10:55 Oxygen Delivery Method Room Air 03/30/23 10:55 BMI result Body Mass Index 21.1 Const General: no acute distress Orientation/consciousness: patient oriented x3 Eyes General: appearance normal, both eyes and all related structures Resp Effort & Inspection: normal respiratory effort and able to speak in complete sentences Auscultation: clear to auscultation bilaterally Cardio Other: S1 S2 Neuro General: patient oriented x3 Psych Mental Status: mental status grossly normal Assessment & Plan Assessment & Plan (1) Medicare annual wellness visit, initial: Code(s): Z00.00 - Encounter for general adult medical examination without abnormal findings (2) Painful diabetic neuropathy: Code(s): E11.40 - Type 2 diabetes mellitus with diabetic neuropathy, unspecified (3) Alcoholic cirrhosis of liver with ascites: Code(s): K70.31 - Alcoholic cirrhosis of liver with ascites (4) Chronic alcoholic pancreatitis: Code(s): K86.0 - Alcohol-induced chronic pancreatitis (5) Stage III chronic kidney disease: Code(s): N18.30 - Chronic kidney disease, stage 3 unspecified Qualifiers: Chronic kidney disease stage 3 subtype: stage 3a (GFR 45-59) Qualified Code(s): N18.31 - Chronic kidney disease, stage 3a (6) Cardiomyopathy: Code(s): I42.9 - Cardiomyopathy, unspecified Qualifiers: Cardiomyopathy type: alcoholic Qualified Code(s): I42.6 - Alcoholic cardiomyopathy (7) Chronic pain syndrome: Code(s): G89.4 - Chronic pain syndrome (8) Major depression, recurrent: Code(s): F33.9 - Major depressive disorder, recurrent, unspecified Qualifiers: Active/Remission status: in full remission Qualified Code(s): F33.42 - Major depressive disorder, recurrent, in full remission (9) Lipid disorder: Code(s): E78.9 - Disorder of lipoprotein metabolism, unspecified (10) Diabetic neuropathy: Code(s): E11.40 - Type 2 diabetes mellitus with diabetic neuropathy, unspecified Qualifiers: Diabetes mellitus complication detail: diabetic polyneuropathy Diabetes mellitus type: type 1 Qualified Code(s): E10.42 - Type 1 diabetes mellitus with diabetic polyneuropathy (11) manager intermediate (current) use of insulin: Code(s): Z79.4 - assisted (current) use of insulin Plan Patient came in today to have a follow-up on lipid disorder and Medicare wellness visit he is due for labs.? Patient says that he had extensive labs done through endocrinology office he will provide me with a reports Patient is getting atorvastatin through this office Patient is seeing number for the providers including ordnance equipment worker and bus and sys integration senior manager for the management of his chronic kidney disease and diabetes mellitus He also does to pain management for chronic neuropathy Diabetic neuropathy:? Pain management through [facility] Patient is on Lyrica 75 mg b.i.d. And duloxetine 30 mg b.i.d. Kidney stones:? He has seen [facility], Lina Jordan He had flexible cystoscopy for left stent removal last year That was placed for ureteral calculi after surgical intervention Liver cirrhosis secondary to alcohol use:? Causing is ascites off and on, managed by [facility] Gastroenterology Dr. Estevez Providers patient is seeing our And endocrinology [facility] for diabetes management. Dr Duarte Nephrology: Dr Les Dunlap Cardio : Dr Galeana Urology Dr Mora Pain managment [facility] [place] Dr Garcia Ophthalmology Dr. Ching Podiatry Dr. Luis Urology Dr. Quezada Orders: Orders Comprehensive Met. Panel Today E11.40 - Type 2 diabetes mellitus with diabetic neuropathy, unspecified, E78.9 - Disorder of lipoprotein metabolism, unspecified, F33.9 - Major depressive disorder, recurrent, unspecified, G89.4 - Chronic pain syndrome, I42.9 - Cardiomyopathy, unspecified, K70.31 - Alcoholic cirrhosis of liver with ascites, K86.0 - Alcohol-induced chronic pancreatitis, N18.30 - Chronic kidney disease, stage 3 unspecified, Z79.4 - manager intermediate (current) use of insulin Hemoglobin A1c Today E11.40 - Type 2 diabetes mellitus with diabetic neuropathy, unspecified, E78.9 - Disorder of lipoprotein metabolism, unspecified, F33.9 - Major depressive disorder, recurrent, unspecified, G89.4 - Chronic pain syndrome, I42.9 - Cardiomyopathy, unspecified, K70.31 - Alcoholic cirrhosis of liver with ascites, K86.0 - Alcohol-induced chronic pancreatitis, N18.30 - Chronic kidney disease, stage 3 unspecified, Z79.4 - assisted (current) use of insulin LDL Cholesterol Direct Today E11.40 - Type 2 diabetes mellitus with diabetic neuropathy, unspecified, E78.9 - Disorder of lipoprotein metabolism, unspecified, F33.9 - Major depressive disorder, recurrent, unspecified, G89.4 - Chronic pain syndrome, I42.9 - Cardiomyopathy, unspecified, K70.31 - Alcoholic cirrhosis of liver with ascites, K86.0 - Alcohol-induced chronic pancreatitis, N18.30 - Chronic kidney disease, stage 3 unspecified, Z79.4 - assisted (current) use of insulin Complete Blood Count Auto Diff Today E11.40 - Type 2 diabetes mellitus with diabetic neuropathy, unspecified, E78.9 - Disorder of lipoprotein metabolism, unspecified, F33.9 - Major depressive disorder, recurrent, unspecified, G89.4 - Chronic pain syndrome, I42.9 - Cardiomyopathy, unspecified, K70.31 - Alcoholic cirrhosis of liver with ascites, K86.0 - Alcohol-induced chronic pancreatitis, N18.30 - Chronic kidney disease, stage 3 unspecified, Z79.4 - manager intermediate (current) use of insulin Quality Reporting (2020) Depression/Bipolar (159/160/161/177) PHQ-9: Total score: 6 Coding Level of Care Code Medicare First (G0438) Est Pt Level 4 (79349) Diagnoses Medicare annual wellness visit, initial Z00.00 Painful diabetic neuropathy E11.40 Alcoholic cirrhosis of liver with ascites K70.31 Chronic alcoholic pancreatitis K86.0 Stage III chronic kidney disease N18.31 Chronic kidney disease stage 3 subtype: stage 3a (GFR 45-59) Cardiomyopathy I42.6 Cardiomyopathy type: alcoholic Chronic pain syndrome G89.4 Major depression, recurrent F33.42 Active/Remission status: in full remission Lipid disorder E78.9 Diabetic neuropathy E10.42 Diabetes mellitus complication detail: diabetic polyneuropathy Diabetes mellitus type: type 1 manager intermediate (current) use of insulin Z79.4 CPT Codes Advance Care Planning - Time spent: 1-15 minutes, not on file ([id number]) Advance Care Planning Forms completed: Health Care Proxy and MOLST Time spent: 1-15 minutes, not on file
[2023-03-30 10:55] VITALS: BP 132/76; PULSE 66; O2SAT 99; BMI 21.1
== END 2023-03-30 11:56 | disposition home or self-care (01) ==
PROVIDERS: PCP Internal Medicine; Visit Provider Internal Medicine
DX: Z00.00 Encounter for general adult medical examination without abnormal findings (principal); E11.40 Type 2 diabetes mellitus with diabetic neuropathy, unspecified; K70.31 Alcoholic cirrhosis of liver with ascites; K86.0 Alcohol-induced chronic pancreatitis; N18.31 Chronic kidney disease, stage 3a; I42.6 Alcoholic cardiomyopathy; F33.42 Major depressive disorder, recurrent, in full remission; E10.42 Type 1 diabetes mellitus with diabetic polyneuropathy; Z79.4 Long term (current) use of insulin; G89.4 Chronic pain syndrome; E78.9 Disorder of lipoprotein metabolism, unspecified
CPT/HCPCS: 1124F; G0438

== ENCOUNTER 2023-04-01 09:05 | Outpatient (AMB) | payer MEDICARE, OTHER, SELFPAY ==
--- NOTE | 2023-04-01 09:40 | MHC.OFFVIS ---
Intake Vital Signs 04/01/23 09:44 04/01/23 10:02 04/01/23 10:10 Weight 151 lb BP 114/68 104/66 151/79 H Blood Pressure Location Lt brachial Lt brachial Lt brachial Position Sitting Sitting Sitting Respiration 14 14 Pulse 60 54 57 Pulse Source Pulse Oximeter Pulse Oximeter Pulse Oximeter Pulse Oximetry (%) 100 98 Oxygen Delivery Method Room Air Room Air Intake Visit Reasons: QUTENZA Allergies codeine Allergy (Unknown, Verified 03/30/23 10:55) Unknown HPI QUTENZA HPI Details 67-year-old male presenting today for second Qutenza patch application for diabetic neuropathy. He reports mild improvement from the 1st patch. Denies any recent cough, cold, infection, fever or other significant changes in medical history since last office visit. [facility] Medical History Anemia Bunion CAD (coronary artery disease) Cataracts, bilateral Chronic diabetic ulcer of right foot determined by examination Chronic kidney disease Diabetes GERD (gastroesophageal reflux disease) Hearing difficulty Heart attack High cholesterol Hypertension Macrocytic anemia Neuropathy Osteomyelitis Surgical History H/O colonoscopy H/O heart bypass surgery H/O rotator cuff surgery History of bunionectomy of right great toe Hx of cystoscopy Hx of endoscopy Hx of heart artery stent Family History Sister HTN (hypertension) Sister HTN (hypertension) Father Heart disease Heart attack Mother Kidney failure Social History Household Members: Significant Other Housing: [facility] Are you a primary progressive care nurse to a significant other at home: No Do you presently have visiting nurse or other home services: No Alcohol intake: current Alcohol intake frequency: former alcohol drinker Alcohol type: beer Patient Tobacco Use Status: Former Tobacco user Quit Date: 2005 Tobacco use type: Cigarette Cigarette Packs Per Day: 1 Cigarettes Per Day: 20 Years Smoked: 15 e-Cigarette/Vaping Use: Never Used Substance Use Type: Marijuana service: No Current occupational status: unemployed Cognitive needs: No Hearing needs: No Vision needs: No Review of Systems Const All systems reviewed & are unremarkable except as noted in HPI and below Physical Exam Vital Signs: Last Vital Signs Pulse 57 04/01/23 10:10 Resp 14 04/01/23 10:02 BP 151/79 H 04/01/23 10:10 Pulse Ox 98 04/01/23 10:02 Oxygen Delivery Method Room Air 04/01/23 10:02 General: Appears afebrile. Alert and oriented. Mood and affect appropriate. Follows and participates in conversation appropriately. Respiratory effort is unlabored. Able to transition from sit to stand unassisted. Ambulates with bilaterally normal heel strike and toe off. Office Procedures Topical Capsaicin Date 1:: 01/03/23 Main area of pain on the body: Feet Laterality: Bilateral Location of left foot pain: Anterior, Posterior, Plantar, Dorsal, Medial and Lateral Location of right foot pain: Anterior, Posterior, Plantar, Dorsal, Medial and Lateral Quality of pain: Aching and Stabbing Details:: Two patches, 560 sq.cm were utilized for each foot. EMLA Cream (lidocaine 2.5% and prilocaine 2.5%) was applied at home by patient prior to application of the patches. The patient tolerated the procedure well. Patient's vitals signs remained stable throughout the procedure. Patient was able to complete the stipulated 30 minutes of the therapeutic application without any discomfort. Office Meds capsaicin-skin cleanser 8 % topical kit Performing Provider: Mode Shepherd MD Performing Location: [facility] Administered by: Mode Shepherd MD on 04/01/23 09:40 Dose Route Admin Location Dispensed Lot Number Expiration Date [facility] [place] Fer[employer] Engineer 1 ea topical 4 ea [id number] 07/25/25 Results Reviewed Results Reviewed: No imaging is available for review. Assessment & Plan Assessment & Plan (1) Diabetic neuropathy: Code(s): E11.40 - Type 2 diabetes mellitus with diabetic neuropathy, unspecified Qualifiers: Diabetes mellitus complication detail: diabetic polyneuropathy Diabetes mellitus type: type 1 Qualified Code(s): E10.42 - Type 1 diabetes mellitus with diabetic polyneuropathy Plan Patient is status post second round of 30-minute application of topical capsaicin 8% today at the clinic. Patient tolerated procedure well and was discharged home in stable condition with discharge instructions. All questions were answered. The patient will follow up in three months or sooner if needed. More than 40 minutes were spent for this encounter. Scribed for Dr. Shepherd by Yoav Simms, medical physicist, on 04/01/2023. I, Dr. Shepherd, have personally reviewed and agree with the information entered by the scribe. Orders: Orders AMB Capsaicin Patch - Practice Supplied 04/01/23 E11.40 - Type 2 diabetes mellitus with diabetic neuropathy, unspecified Coding Level of Care Code Est Pt Level 5 (05737) Diagnoses Diabetic polyneuropathy associated with type 1 diabetes mellitus E10.42 Diabetes mellitus complication detail: diabetic polyneuropathy Diabetes mellitus type: type 1
[2023-04-01 09:44] VITALS: BP 114/68; PULSE 60; RESP 14; O2SAT 100
[2023-04-01 10:02] VITALS: BP 104/66; PULSE 54; RESP 14; O2SAT 98
[2023-04-01 10:10] VITALS: BP 151/79; PULSE 57
== END 2023-04-01 10:19 | disposition home or self-care (01) ==
PROVIDERS: PCP Internal Medicine; Visit Provider Internal Medicine
DX: E10.42 Type 1 diabetes mellitus with diabetic polyneuropathy (principal)
CPT/HCPCS: 17999; 99215

== ENCOUNTER → 2023-04-01 09:05 | Outpatient (BNVA) | payer MEDICARE, OTHER, SELFPAY | PROVIDERS: PCP Internal Medicine; Visit Provider Internal Medicine | DX: E10.42 Type 1 diabetes mellitus with diabetic polyneuropathy (principal) | CPT/HCPCS: 17999; 99212; J7336 ==

== ENCOUNTER 2023-05-26 11:52 | Outpatient (AMB) | payer MEDICARE, OTHER, SELFPAY ==
--- NOTE | 2023-05-26 11:56 | MHC.OFFVIS ---
Intake Vital Signs 05/26/23 11:57 Height 5 ft 11 in Weight 156 lb BMI 21.8 BP 152/70 H Blood Pressure Location Lt brachial Position Sitting Pulse 61 Intake Visit Reasons: 4 month follow up Intake Note: Patient follow up for Colonoscopy results. Patient cc: between diarrhea and constipation on and off and some swallowing problems. Denies any other GI issues. Facilities Maintenance Engineer Required: No Accompanied by: Spouse Allergies codeine Allergy (Unknown, Verified 05/26/23 11:55) Unknown Medication List - Last Reconciled 05/26/23 by Elisha Estevez MD aspirin 81 mg PO BEDTIME atorvastatin 20 mg PO DAILY 90 days blood-glucose meter As directed insulin aspart U-100 (Novolog FlexPen U-100 Insulin aspart) 6 - 9 sliding scale doses subcut BID insulin detemir U-100 (Levemir FlexPen) 17 units subcut DAILY lancets As directed lqldcy-vaaactov-ssnodnl 24,000-76,000 -120,000 unit (Creon) 1 cap PO TID multivitamin 1 tab PO DAILY pen needle, diabetic B.i.d. pregabalin 150 mg PO TID pregabalin 150 mg PO TID spironolactone 25 mg PO DAILY thiamine mononitrate (vit B1) 100 mg PO DAILY 90 days HPI 4 month follow up HPI Details GI clinic visit for this 66 YM? with CHF, CAD, IDDM, htn, kidney stones, CKD, seen for FU of liver disease, chronic calcific pancreatitis and colon cancer screening. Followed by Dr Centeno at [facility].? Saw another GI physician in 2019 at [facility] who has retired also. Renal:? Dr Chan Pt was hospitalized at [facility] 05/29/21 to 06/10/21 with cirrhosis, ascites, SBP,? sepsis, anemia, nontraumatic psoas hematoma, Malnutrition, anasarca, pancreatic insufficiency, thrombocytopenia, coagulopathy, alcohol use disorder, coronary artery disease and confusion associated with infection.? Hospital course was complicated by type 2 hepatorenal disease which was treated with midodrine, octreotide, albumin infusions Creatinine improved to 1.4 and octreotide was discontinued. Discharge summary from hospitalization was reviewed in scanned into the patient's medical record. IMAGING STUDIES:??06/01/[address] SCAN PERFORMED AT [facility]: Diffuse pancreatic calcifications with pancreatic atrophy.? Pancreatic duct dilated to 6 mm - likely due to pancreatic atrophy For least catheter in the urinary bladder Bilateral pleural effusion, ascites and diffuse anasarca.? L3-L4 compression fracture - age undetermined ENDOSCOPIC STUDIES: 03/25/23 COLONOSCOPY SHOWED: Two medium sized polyps removed Moderate diverticulosis seen in the entire colon Plan: Repeat Colonoscopy interval based on path results - in 2-3 years if polyps are adenomatous and to check polypectomy site at the hepatic flexure. 03/02/22 Pt had an EUS at [facility] [place] by Dr Mc which showed: Distended gallbladder, and normal liver panel time a with normal-sized intrahepatic ducts and mid CBD. Dilated pancreatic duct in head, smoothly transitioning incised to words midbody. No stones noted within the pancreatic duct. At trophic pancreatic [place] a with calcifications within the side branches, no discrete masses found in the pancreatic parenchyma. Multiple tortuous blood vessels noted in the lesser sac region close to the splenic vein. Patient was advised to take frequent small meals and continue Creon and refrain from EtOH use. Of note colonoscopy was attempted after EUS in terminated due to poor prep. TODAY'S VISIT: Accompanied by his GF Appetite is good and he has been gaining weight Has diarrhea alternating with constipation Intermittent dysphagia associated with intake of solids - with every meal for the past 6 months, Denies heartburn Has a good appetite and wt gain of 40 lbs over the past year. PAST VISIT: Continues to have a abd cramps with a lot of gas and more bouts of diarrhea. Unable to go for a few days and then has diarrhea. Takes peptobismol when he has diarrhea. Can be on the toilet for 1/2 an hour. Has oatmeal for breakfast, fruit or muffin for lunch. Had EUS at [facility] [place] - report was requested Colonoscopy was attempted and was unsuccessful due to poor prep. Pt reports bouts of constipation and diarrhea - mostly diarrhea. Denies black stool or rectal bleeding Denies abdominal pain and appetite is better Pregabilin is helping with the appetite. Notes mild lower extremity edema Takes Novolin 17 units in the am and uses regular insulin on a sliding scale the rest of the day. No ETOH in 15 to 16 months Pt was diagnosed with alcoholic cirrhosis a few yrs ago. DM diagnosed 5-6 yrs ago. Complains of worsening upper abdominal pain x 1 month. Pain is constant, 8/10 and radiates to the back. Denies change in pain with eating. Denies nausea, vomiting, dairrhea or constipation.. Takes Lactulose two times a day and has 2 -3 soft BMs daily. Stools are very light Appetite has been good and he is trying to eat three times a day or takes a protein drink. Started loosing wt for the past 6 months Baseline wt is 145 lbs. Weighed 126 lbs on discharge from Rehab and now weighs 110 lbs. Feels he is getting enough calories. Patient denies symptoms of heartburn, dysphagia.? Denies black stools or rectal bleeding. Patient denies loud snoring or sleep apnea - has difficulty sleeping due to neuropathy Denies problems with anesthesia in the past. Denies being on chronic anticoagulation. Quit drinking 3 months ago Denies tobacco use Patient denies known family history of colon polyps, colon cancer or other GI malignancies. 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 Diverticulosis was detected.? Repeat colonoscopy was advised in 5 years.? PAST GI HISTORY BY REVIEW OF MEDICAL RECORDS: 12/14/20 pt was seen by Dr. Silvestre for anemia: 64 years old male with PMH of CAD post CABG, diabetes on insulin, HLD, neuropathy, alcohol abuse who I am seeing for assessment for anemia, He actually presents with worsening left big toe ulcer with increased warmth, swelling, erythema and tenderness around the area with drainage. He does have peripheral neuropathy at baseline as well. part of work up revealed anemia He denies hematuria, no melena, or rectal bleeding. He has no GERd, dysphagia, weight loss or fevers. he said he had EGD and colonoscopy mayb 5-6 yrs ago, results unknown Imaging suggestive of osteomyelitis. 1/ Macrocytic anemia, maybe due to diet, or chronic anemia from osteomyelitis or bone marrow disease, no overt GI blood loss PLAN: 1/ priority right now is treatment of the osteomyelitis, would defer EGD and colonoscopy to either early outpatient or after few days of ABX therapy. Discussed with primary team. Meantime PPI e.g pantoprazole 40 mg OD and fluid/vol resuscitate, if clinical status changes and he has overt GI bleeding then can change plan accordingly [facility] Medical History (Updated 05/26/23 @ 12:33 by Elisha Estevez MD) Ascites Chronic kidney disease GERD (gastroesophageal reflux disease) Macrocytic anemia Chronic diabetic ulcer of right foot determined by examination Anemia Osteomyelitis Hearing difficulty Neuropathy Cataracts, bilateral Bunion Heart attack CAD (coronary artery disease) High cholesterol Diabetes Hypertension Surgical History H/O colonoscopy Hx of heart artery stent Hx of cystoscopy Hx of endoscopy History of bunionectomy of right great toe H/O rotator cuff surgery H/O heart bypass surgery Family History Sister HTN (hypertension) Sister HTN (hypertension) Father Heart disease Heart attack Mother Kidney failure Social History Household Members: Significant Other Housing: Condominium Are you a primary childcare center administrator to a significant other at home: No Do you presently have visiting nurse or other home services: No Alcohol intake: current Alcohol intake frequency: former alcohol drinker Alcohol type: beer Patient Tobacco Use Status: Former Tobacco user Quit Date: 2005 Tobacco use type: Cigarette Cigarette Packs Per Day: 1 Cigarettes Per Day: 20 Years Smoked: 15 e-Cigarette/Vaping Use: Never Used Substance Use Type: Marijuana service: No Current occupational status: unemployed Cognitive needs: No Hearing needs: No Vision needs: No Review of Systems Const All systems reviewed & are unremarkable except as noted in HPI and below Physical Exam Const General: no acute distress Nutritional Appearance: average body habitus Orientation/consciousness: patient oriented x3 Limitations: other limitations (hard of hearing) HEENT Head: Yes normal to inspection Ears: hearing grossly normal bilaterally Mouth: Normal oral and palatal mucosa present Eyes Sclerae: sclerae normal Pupils: Equal, round and reactive pupils present Neck Neck: Yes normal visual inspection Chest Chest palpation & inspection: normal inspection of the chest and other (mid line scar) Resp Effort & Inspection: normal respiratory effort Auscultation: clear to auscultation bilaterally Cardio Palpation: normal PMI Rate: regular rate Rhythm: regular rhythm Heart sounds: S1 normal heart sound present, S2 normal heart sound present and no murmurs GI Palpation (GI): Soft to palpation, nontender and No hepatosplenomegaly present Auscultation: normal bowel sounds Rectal Exam - Male: Yes deferred Skin General skin exam: no rashes or lesions noted Neuro General: patient oriented x3, gait normal and moves all extremities Cranial nerves: Yes Equal, round and reactive pupils present Psych Appearance: grossly normal Mental Status: mental status grossly normal Assessment & Plan Assessment & Plan (1) Acid reflux: Code(s): K21.9 - Gastro-esophageal reflux disease without esophagitis (2) Chronic alcoholic pancreatitis: Code(s): K86.0 - Alcohol-induced chronic pancreatitis (3) Alcoholic cirrhosis of liver with ascites: Code(s): K70.31 - Alcoholic cirrhosis of liver with ascites (4) Dysphagia, pharyngoesophageal phase: Code(s): R13.14 - Dysphagia, pharyngoesophageal phase Plan 67 YM with poorly controlled DM complicated by neuropathy and nephropathy, cardiomyopathy, ESLD, chronic calcific pancreatitis referred urgently due to ongoing weight loss despite good appetite and adequate p.o. intake. Patient has decompensated cirrhosis complicated by ascites and hepatic encephalopathy - had mild ascites on physical exam. Patient has a history of acute and chronic pancreatitis requiring hospitalization in past. Pt's weight loss is likely a combination of uncontrolled DM and malabsorption due to chronic calcific pancreatitis. Pt is also at increased risk for Pancreatic Cancer (due to chronic pancreatitis) and HCC. I will check lab and stool tests for malabsorption.? Patient was advised to start pancreatic enzymes with meals and monitor his weight. He needs better control of his diabetes - he would benefit from referral to Endocrinology. 03/02/22 Pt had an EUS at [facility] [place] by Dr Mc which showed: Distended gallbladder, and normal liver panel time a with normal-sized intrahepatic ducts and mid CBD. Dilated pancreatic duct in head, smoothly transitioning to normal size in midbody. No stones noted within the pancreatic duct. At trophic pancreatic duct with calcifications within the side branches, no discrete masses found in the pancreatic parenchyma. Multiple tortuous blood vessels noted in the lesser sac region close to the splenic vein. Patient was advised to take frequent small meals and continue Creon and refrain from EtOH use. Of note colonoscopy was attempted after EUS in terminated due to poor prep. 03/25/2023 colonoscopy was performed in findings as noted above 05/26/23 Has diarrhea alternating with constipation Intermittent dysphagia associated with intake of solids - with every meal for the past 6 months, Has a good appetite and wt gain of 40 lbs over the past year. Patient advised to schedule a barium swallow for evaluation of dysphagia. He is due for an abdominal ultrasound in spring for follow-up of cirrhosis MELD score is 12 FU in 6 months Orders: Orders FL barium swallow Today R13.14 - Dysphagia, pharyngoesophageal phase US abdomen limited 09/23/23 K70.31 - Alcoholic cirrhosis of liver with ascites Coding Level of Care Code Est Pt Level 4 (92936) Diagnoses Acid reflux K21.9 Chronic alcoholic pancreatitis K86.0 Alcoholic cirrhosis of liver with ascites K70.31 Dysphagia, pharyngoesophageal phase R13.14 Time Spent (min) 24
[2023-05-26 11:57] VITALS: BP 152/70; PULSE 61; BMI 21.8
== END 2023-05-26 12:43 | disposition home or self-care (01) ==
PROVIDERS: PCP Internal Medicine; Visit Provider Internal Medicine Gastroenterology
DX: K21.9 Gastro-esophageal reflux disease without esophagitis (principal); K86.0 Alcohol-induced chronic pancreatitis; K70.31 Alcoholic cirrhosis of liver with ascites; R13.14 Dysphagia, pharyngoesophageal phase
CPT/HCPCS: 99214

== ENCOUNTER → 2023-05-26 11:52 | Outpatient (BNVA) | payer MEDICARE, OTHER, SELFPAY | PROVIDERS: PCP Internal Medicine; Visit Provider Internal Medicine Gastroenterology | DX: K21.9 Gastro-esophageal reflux disease without esophagitis (principal); K86.0 Alcohol-induced chronic pancreatitis; K70.31 Alcoholic cirrhosis of liver with ascites; R13.14 Dysphagia, pharyngoesophageal phase | CPT/HCPCS: 99212 ==

== ENCOUNTER 2023-06-07 14:24 | Outpatient (AMB) | payer MEDICARE, OTHER, SELFPAY ==
[2023-06-07 14:28] VITALS: BP 130/76; PULSE 75; O2SAT 96; BMI 21.7
--- NOTE | 2023-06-07 14:28 | A.OFFPC_ITS ---
Vital Signs 06/07/23 14:28 Height 5 ft 11 in Weight 155 lb 4 oz BMI 21.7 BP 130/76 Blood Pressure Location Rt brachial Position Sitting Pulse 75 Pulse Source Pulse Oximeter Pulse Oximetry (%) 96 Oxygen Delivery Method Room Air Intake Visit Reasons: Pre-Op cataract surgery~ Allergies codeine Allergy (Unknown, Verified 06/07/23 14:28) Unknown Medication List - Last Reconciled 06/07/23 by Rufino Rajput MD aspirin 81 mg PO BEDTIME atorvastatin 20 mg PO DAILY 90 days blood-glucose meter As directed insulin aspart U-100 (Novolog FlexPen U-100 Insulin aspart) 6 - 9 sliding scale doses subcut BID insulin detemir U-100 (Levemir FlexPen) 17 units subcut DAILY lancets As directed [id number] 24,000-76,000 -120,000 unit (Creon) 1 cap PO TID 90 days multivitamin 1 tab PO DAILY pen needle, diabetic B.i.d. pregabalin 150 mg PO TID pregabalin 150 mg PO TID spironolactone 25 mg PO DAILY thiamine mononitrate (vit B1) 100 mg PO DAILY 90 days Tobacco use date assessed: 06/07/23 Fall risk assessment: No Falls in past year Last assessed Fall Risk: 06/07/23 Dental Screening Dental Screen Date: 06/07/23 Did you have a dental visit in the last 12 months?: No Did you have a dental problem in the last 6 months where you did not have access to dental care?: No Was dental information given to patient?: No HPI Pre-Op cataract surgery~ HPI Details Patient is 67-year-old gentleman came in today to have preop clearance for left eye cataract surgery under local anaesthesia Patient is doing very well , he has gained some weight There is no chest pain shortness of breath No nausea vomiting diarrhea there is no signs of infection no fever no chills no sore throat. Date of surgery is 23 of June at eye and [facility] by Dr. Adair I do not have a paperwork from ophthalmology Information taken from patient Patient had right eye cataract surgery 2 years ago same facility. He is seeing number of other providers for medical problems Gastroenterology : [facility] for liver cirrhosis Dr vidal Endocrinology: [facility] for diabetes management. Dr Duarte Nephrology: Dr Les Dunlap, or diabetic nephropathy Cardio : Dr Galeana Urology : Dr Mora Pain managment : [facility] [facility] Ophthalmology : Dr. Ching Podiatry: Dr. Luis Urology: Dr. Quezada Patient is stable for cataract surgery [facility] Medical History Ascites Chronic kidney disease GERD (gastroesophageal reflux disease) Macrocytic anemia Chronic diabetic ulcer of right foot determined by examination Anemia Osteomyelitis Hearing difficulty Neuropathy Cataracts, bilateral Bunion Heart attack CAD (coronary artery disease) High cholesterol Diabetes Hypertension Surgical History H/O colonoscopy Hx of heart artery stent Hx of cystoscopy Hx of endoscopy History of bunionectomy of right great toe H/O rotator cuff surgery H/O heart bypass surgery Family History Sister HTN (hypertension) Sister HTN (hypertension) Father Heart disease Heart attack Mother Kidney failure Social History Household Members: Significant Other [facility]: [facility] Are you a primary patient care director to a significant other at home: No Do you presently have visiting nurse or other home services: No Alcohol intake: current Alcohol intake frequency: former alcohol drinker Alcohol type: beer Patient Tobacco Use Status: Former Tobacco user Quit Date: 2005 Tobacco use type: Cigarette Cigarette Packs Per Day: 1 Cigarettes Per Day: 20 Years Smoked: 15 e-Cigarette/Vaping Use: Never Used Substance Use Type: Marijuana service: No Current occupational status: unemployed Cognitive needs: No Hearing needs: No Vision needs: No Questionnaire Thrive Questionnaire Date Thrive assessed: 12/16/21 AUDIT C Alcohol Use Questionnaire (AUDIT-C) 1. How often do you have a drink containing alcohol?: Never 3. How often do you have six or more drinks on one occasion?: Never Total Score: 0 Score Reviewed/Action Taken: Yes Review of Systems Const Denies chills and Denies fever(s) ENT Denies epistaxis and Denies nasal discharge Card Denies chest pain Resp Denies chest congestion, Denies cough and Denies hemoptysis GI Denies diarrhea and Denies nausea Skin/Breast Denies rash Neuro Reports no additional complaints Psych Reports no additional complaints Endo Reports no additional complaints Physical exam (Primary Care) Vital Signs: Last Vital Signs Pulse 75 06/07/23 14:28 BP 130/76 06/07/23 14:28 Pulse Ox 96 06/07/23 14:28 Oxygen Delivery Method Room Air 06/07/23 14:28 BMI result Body Mass Index 21.7 Tobacco/Smoking Status: Tobacco use Status Tobacco use date assessed 06/07/23 06/07/23 14:31 Patient Tobacco Use Status Former Tobacco user 06/07/23 14:31 Tobacco use type Cigarette 06/07/23 14:31 e-Cigarette/Vaping Use Never Used 06/07/23 14:31 Thrive Assessment: Date of Thrive Assessment Date Thrive assessed 12/16/21 06/07/23 14:31 Const General: cooperative, comfortable and no acute distress Orientation/consciousness: patient oriented x3 HENMT Head: Yes normocephalic Eyes General: appearance normal, both eyes and all related structures Neck Neck: Yes supple Resp Effort & Inspection: normal respiratory effort, no cough and no stridor Cardio Rhythm: regular rhythm Heart sounds: S1 normal heart sound present and S2 normal heart sound present GI Other: Nontender Auscultation: normal bowel sounds Skin General skin exam: turgor normal Neuro General: patient oriented x3, tone normal and moves all extremities Extrem Right lower extremity: no edema Left lower extremity: no edema Assessment and Plan Assessment & Plan (1) Pre-op evaluation: Code(s): Z01.818 - Encounter for other preprocedural examination (2) Cataract, left: Code(s): H26.9 - Unspecified cataract Qualifiers: Cataract type: age-related Age-related cataract type: unspecified Qualified Code(s): H25.9 - Unspecified age-related cataract Plan Patient is 67-year-old gentleman came in today to have preop clearance for left eye cataract surgery under local anaesthesia Patient is doing very well , he has gained some weight There is no chest pain shortness of breath No nausea vomiting diarrhea there is no signs of infection no fever no chills no sore throat. Date of surgery is 23 of June at eye and [facility] by Dr. Adair I do not have a paperwork from ophthalmology Information taken from patient Patient had right eye cataract surgery 2 years ago same facility. He is seeing number of other providers for medical problems Gastroenterology : [facility] for liver cirrhosis Dr vidal Endocrinology: [facility] for diabetes management. Dr Duarte Nephrology: Dr Les Dunlap, or diabetic nephropathy Cardio : Dr Galeana Urology : Dr Mora Pain managment : [facility] Ophthalmology : Dr. Ching Podiatry: Dr. Luis Urology: Dr. Quezada Patient is stable for cataract surgery Coding Level of Care Code Est Pt Level 4 (25174) Diagnoses Pre-op evaluation Z01.818 Senile cataract of left eye, unspecified age-related cataract type H25.9 Cataract type: age-related Age-related cataract type: unspecified
== END 2023-06-07 15:21 | disposition home or self-care (01) ==
PROVIDERS: PCP Internal Medicine; Visit Provider Internal Medicine
DX: H25.9 Unspecified age-related cataract (principal); Z01.818 Encounter for other preprocedural examination; M86.9 Osteomyelitis, unspecified
CPT/HCPCS: 99214

== ENCOUNTER 2023-07-11 08:32 | Outpatient (AMB) | payer MEDICARE, OTHER, SELFPAY ==
--- NOTE | 2023-07-11 08:34 | A.OFFVIS_ITS ---
Intake Vital Signs 07/11/23 08:37 07/11/23 08:58 07/11/23 09:18 Height 5 ft 11 in Weight 155 lb BMI 21.6 BP 157/70 H 144/84 H 157/74 H Blood Pressure Location Lt brachial Rt brachial Lt brachial Position Sitting Sitting Sitting Respiration 12 Pulse 101 H 84 Pulse Source Pulse Oximeter Pulse Oximeter Pulse Oximeter Intake Visit Reasons: Qutenza - DN/lvm Allergies codeine Allergy (Unknown, Verified 06/07/23 14:28) Unknown HPI Qutenza - DN/lvm HPI Details 67-year-old male presenting today for se cond Qutenza patch application for diabetic neuropathy. Denies any recent cough, cold, infection, fever or other significant changes in medical history since last office visit. The patient reports moderate improvement after two rounds of Qutenza treatment. He had no complications from the Qutenza. He has gained weight. His current weight is 154; in March, it was 151; and in October, it was 140 lbs. He had two surgeries two weeks apart, three weeks ago, for cataract removal. The patient inquired about acupuncture therapy for his pain. [facility] Medical History Ascites Chronic kidney disease GERD (gastroesophageal reflux disease) Macrocytic anemia Chronic diabetic ulcer of right foot determined by examination Anemia Osteomyelitis Hearing difficulty Neuropathy Cataracts, bilateral Bunion Heart attack CAD (coronary artery disease) High cholesterol Diabetes Hypertension Surgical History H/O colonoscopy Hx of heart artery stent Hx of cystoscopy Hx of endoscopy History of bunionectomy of right great toe H/O rotator cuff surgery H/O heart bypass surgery Family History Sister HTN (hypertension) Sister HTN (hypertension) Father Heart disease Heart attack Mother Kidney failure Social History Household Members: Significant Other Housing: Condominium Are you a primary tire care manager to a significant other at home: No Do you presently have visiting nurse or other home services: No Alcohol intake: current Alcohol intake frequency: former alcohol drinker Alcohol type: beer Patient Tobacco Use Status: Former Tobacco user Quit Date: 2005 Tobacco use type: Cigarette Cigarette Packs Per Day: 1 Cigarettes Per Day: 20 Years Smoked: 15 e-Cigarette/Vaping Use: Never Used Substance Use Type: Marijuana service: No Current occupational status: unemployed Cognitive needs: No Hearing needs: No Vision needs: No Review of Systems Const All systems reviewed & are unremarkable except as noted in HPI and below Physical Exam Vital Signs: Last Vital Signs Pulse 84 07/11/23 09:18 Resp 12 07/11/23 08:37 BP 157/74 H 07/11/23 09:18 BMI result Body Mass Index 21.6 General: Appears afebrile. Alert and oriented. Mood and affect appropriate. Follows and participates in conversation appropriately. Respiratory effort is unlabored. Able to transition from sit to stand unassisted. Ambulates with bilaterally normal heel strike and toe off. Office Procedures Topical Capsaicin Date 1:: 01/03/23 Date 2:: 04/01/23 Date 3:: 07/11/23 Main area of pain on the body: Feet Laterality: Bilateral Location of left foot pain: Anterior, Posterior, Plantar, Proximal, Dorsal, Medial, Lateral and Distal Location of right foot pain: Anterior, Posterior, Plantar, Proximal, Dorsal, Medial, Lateral and Distal Quality of pain: Burning and Throbbing Details:: EMLA Cream (lidocaine 2.5% and prilocaine 2.5%) was applied at home by patient prior to application of the patches. The patient tolerated the procedure well. Patient's vitals signs remained stable throughout the procedure. Patient was able to complete the stipulated 30 minutes of the therapeutic application without any discomfort. Office Meds capsaicin-skin cleanser 8 % topical kit Performing Provider: Mode Shepherd MD Performing Location: [facility] Administered by: Mode Shepherd MD on 07/11/23 09:14 Dose Route Admin Location Dispensed Lot Number Expiration Date [facility] [employer] Key[employer] 1 ea topical 1 ea [id number] 07/25/25 Results Reviewed Results Reviewed: No imaging is available for review. Assessment & Plan Assessment & Plan (1) Diabetic neuropathy: Code(s): E11.40 - Type 2 diabetes mellitus with diabetic neuropathy, unspecified Qualifiers: Diabetes mellitus complication detail: diabetic polyneuropathy Diabetes mellitus type: type 1 Qualified Code(s): E10.42 - Type 1 diabetes mellitus with diabetic polyneuropathy Plan Patient is status post third round of 30-minute application of topical capsaicin 8% today at the clinic. Patient tolerated procedure well and was discharged home in stable condition with discharge instructions. All questions were answered. The patient will follow up in three months or sooner if needed. So far he reports moderate relief for his foot symptoms. He is now more concerned about his hand symptoms. He is still hesitant to proceed with the trial of SCS, especially since it is only going to be targeted towards his feet and unlikely to help his hands. A referral was provided to acupuncture therapy to trial for neuropathy symptoms in his hands. More than 40 minutes were spent in treatment, discussion and documentation of this encounter. Scribed for Dr. Shepherd by Yoav Simms, medical insurance collector, on 07/11/2023. I, Dr. Shepherd, have personally reviewed and agree with the information entered by the scribe. Orders: Orders AMB Capsaicin Patch - Practice Supplied 07/11/23 E11.40 - Type 2 diabetes [facility] with diabetic neuropathy, unspecified Referrals Acupuncture Referral E11.40 - Type 2 diabetes mellitus with diabetic neuropathy, unspecified Medications: Refilled lidocaine-prilocaine 2.5-2.5 % Apply on the feet 60 minutes prior to the scheduled procedure time 30 grams topical ONCE 30 grams 1RF Coding Level of Care Code Est Pt Level 5 (36622) Diagnoses Diabetic polyneuropathy associated with type 1 diabetes mellitus E10.42 Diabetes mellitus complication detail: diabetic polyneuropathy Diabetes mellitus type: type 1
[2023-07-11 08:37] VITALS: BP 157/70; RESP 12; BMI 21.6
[2023-07-11 08:58] VITALS: BP 144/84; PULSE 101
[2023-07-11 09:18] VITALS: BP 157/74; PULSE 84
== END 2023-07-11 09:21 | disposition home or self-care (01) ==
PROVIDERS: PCP Internal Medicine; Visit Provider Internal Medicine
DX: E10.42 Type 1 diabetes mellitus with diabetic polyneuropathy (principal)
CPT/HCPCS: 17999; 99214

== ENCOUNTER → 2023-07-11 08:32 | Outpatient (BNVA) | payer MEDICARE, OTHER, SELFPAY | PROVIDERS: PCP Internal Medicine; Visit Provider Internal Medicine | DX: E10.42 Type 1 diabetes mellitus with diabetic polyneuropathy (principal); Z79.899 Other long term (current) drug therapy | CPT/HCPCS: 17999; 99212; J7336 ==

== ENCOUNTER 2023-07-21 09:00 | Outpatient (AMB) | payer MEDICARE, OTHER, SELFPAY ==
[2023-07-21 10:47] VITALS: BP 122/64; PULSE 66; TEMP 36.7; O2SAT 98; BMI 21.6
--- NOTE | 2023-07-21 10:47 | AM.OFFWIN_ITS ---
Intake Vital Signs 07/21/23 10:47 Height 5 ft 11 in Weight 155 lb BMI 21.6 BP 122/64 Blood Pressure Location Lt brachial Position Sitting Pulse 66 Pulse Source Pulse Oximeter Temp 98.0 F Temp Source Oral Pulse Oximetry (%) 98 Oxygen Delivery Method Room Air Intake Visit Reasons: EP Open Wounds on both feet Intake Note: pt is here for c.o open wounds on both feet Patient Tobacco Use Status: Former Tobacco user Quit Date: 2005 Allergies codeine Allergy (Unknown, Verified 07/21/23 10:47) Unknown Do you need a note to return to daycare/school/sports/work: Yes HPI HPI Comments History of Present Illness Details Pt presents with Girlfriend for foot wound Diabetes and neuropathy hx L heel blister x 1 week. Not seen by medical practice manager devika. Started peeling in shower once blister popped No fevers associated He tried washes it with soap and water and dressing Silver nitrate at home which he has been using No fever or chills He denies pain, 0/10 + slight LLE foot/ankle edema onset PFSH Medical History Ascites Chronic kidney disease GERD (gastroesophageal reflux disease) Macrocytic anemia Chronic diabetic ulcer of right foot determined by examination Anemia Osteomyelitis Hearing difficulty Neuropathy Cataracts, bilateral Bunion Heart attack CAD (coronary artery disease) High cholesterol Diabetes Hypertension Surgical History H/O colonoscopy Hx of heart artery stent Hx of cystoscopy Hx of endoscopy History of bunionectomy of right great toe H/O rotator cuff surgery H/O heart bypass surgery Family History Sister HTN (hypertension) Sister HTN (hypertension) Father Heart disease Heart attack Mother Kidney failure Social History Household Members: Significant Other Housing: Condominium Are you a primary urgent care physician assistant to a significant other at home: No Do you presently have visiting nurse or other home services: No Alcohol intake: current Alcohol intake frequency: former alcohol drinker Alcohol type: beer Patient Tobacco Use Status: Former Tobacco user Quit Date: 2005 Tobacco use type: Cigarette Cigarette Packs Per Day: 1 Cigarettes Per Day: 20 Years Smoked: 15 e-Cigarette/Vaping Use: Never Used Substance Use Type: Marijuana service: No Current occupational status: unemployed Cognitive needs: No Hearing needs: No Vision needs: No Review of Systems Const Denies chills and Denies fever(s) Card Denies chest pain and Denies dyspnea Resp Denies dyspnea Musc Reports joint swelling and Reports numbness (chronic neuropathy) Skin/Breast Reports non-healing lesions, Reports erythema and Reports skin ulcer Neuro Reports numbness (chronic neuropathy) Physical Exam Vital Signs: Last Vital Signs Temp 98.0 F 07/21/23 10:47 Pulse 66 07/21/23 10:47 BP 122/64 07/21/23 10:47 Pulse Ox 98 07/21/23 10:47 Oxygen Delivery Method Room Air 07/21/23 10:47 BMI result Body Mass Index 21.6 General: Non-toxic, NAD. Speaking full sentences. Skin: Warm dry throughout. R foot: R great toe has blue ecchymosis to tip just distal to nail without opening or discharge. No eschar. Inferior aspect R great toe has linear superficial strip of skin removed approx 1 inch x 0.25 inches. No dicharge or bleeding. No FB or eschar LLE: No wounds to toes, plantar surface or dorsal aspect. + approx 3inch x 3inch circular superficial skin ulcer to L heel. No bleeding or discharge. No tunneling or eschar. + slight edema LLE from heel and dorsal aspect foot. Respiratory: No tachypnea Cardiac: RRR. DP pulse present. MSK: Full ROM L ankle. Neurology: A/O. No aphasia or facial droop. Gait without abnormality Psych: Good mood and affect Assessment & Plan Assessment & Plan (1) Foot ulcer: Code(s): L97.509 - Non-pressure chronic ulcer of other part of unspecified foot with unspecified severity Qualifiers: Laterality: left Non-pressure ulcer stage: with fat layer exposed Qualified Code(s): L97.522 - Non-pressure chronic ulcer of other part of left foot with fat layer exposed Plan: see below (2) Cellulitis of foot: Code(s): L03.119 - Cellulitis of unspecified part of limb Plan: Patient seen and evaluated. Wound care clinic visit is needed. GF said they called and he can be seen after the 1st of new year without referral He is aware of importance of PCP/wound care follow up We discussed xray to rule out osteo but he has had this in past and it feels different. Plus wound only has uperficial layer removed without pit or tunneling; no concern for osteo at this time for reasons above and afebrile We discussed s/s of osteo or worsening infection that would warrant immediate ED referral. Patient gave verbal understanding and had no additional questions or concerns at time of discharge All questions answered Medications: New cephalexin 500 mg PO BID 14 caps 0RF L03.119 - Cellulitis of unspecified part of limb, L97.509 - Non-pressure chronic ulcer of other part of unspecified foot with unspecified severity mupirocin 2% 1 appl topical BID 22 grams 0RF L03.119 - Cellulitis of unspecified part of limb, L97.509 - Non-pressure chronic ulcer of other part of unspecified foot with unspecified severity Coding Level of Care Code Est Pt Level 3 (55160) Diagnoses Ulcer of left foot with fat layer exposed L97.522 Laterality: left Non-pressure ulcer stage: with fat layer exposed Cellulitis of foot L03.119
== END 2023-07-21 12:26 | disposition home or self-care (01) ==
PROVIDERS: PCP Internal Medicine; Visit Provider Physician Assistant
DX: L97.522 Non-pressure chronic ulcer of other part of left foot with fat layer exposed (principal); L03.119 Cellulitis of unspecified part of limb
CPT/HCPCS: 99213

== ENCOUNTER 2023-08-15 07:33 | Outpatient (REF) | payer MEDICARE, OTHER, SELFPAY ==
--- NOTE | ~2023-08-15 | FL_ITS ---
EXAMINATION: FL BARIUM SWALLOW CLINICAL INFORMATION: Dysphagia COMPARISON: None TECHNIQUE: Fluoroscopic air contrast upper GI examination was performed utilizing standard techniques with thin and thick barium and effervescent granules. Numerous spot images were obtained. FINDINGS: Lateral cine images of the oropharynx and hypopharynx demonstrate normal swallow mechanism with normal epiglottic inversion and soft palate elevation. Best seen on RF #1-6, is a small amount of subglottic aspiration of barium. No nasopharyngeal reflux present. There is excessive pooling of contrast in the vallecula and piriform sinuses. Hypopharyngeal structures appear normal without evidence of mass or diverticulum. 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 Dual and single contrast images of the esophagus demonstrate normal caliber, contour, and mucosal pattern. No evidence of stricture, mass, or ulcerations identified. Primary esophageal peristalsis was normal. There are some mildly disorganized tertiary contractions noted in the mid and distal esophagus. No evidence of hiatus hernia identified. No significant gastroesophageal reflux was seen during the course of the examination and on reflux views. Limited images of the stomach demonstrate several small foci of abnormal contrast pooling, possibly technical due to poor coating versus representing small superficial gastric mucosal ulcerations. FLUOROSCOPY TIME: 2 minutes 36 seconds Number of Spot Images: 2 Number of Cine: 8 DOSE AREA PRODUCT: 1045 uGy-m2 (microgray-meter squared) FL/FL barium swallow with air IMPRESSION: 1. 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 Consistent pooling in the piriform sinuses and vallecula. 2. Small amount of glottic/subglottic aspiration noted. 3. Mildly disorganized esophageal peristalsis. 4. Incomplete evaluation of the stomach, as detailed. Would definitely consider correlating with EGD. This procedure was performed by Les Ding PA-C, and supervised by Dr. Navas
== END 2023-08-15 07:34 | disposition home or self-care (01) ==
LOC: HO.XRAY 07:33
PROVIDERS: PCP Internal Medicine; Visit Provider Internal Medicine Gastroenterology
DX: R13.14 Dysphagia, pharyngoesophageal phase (principal)
CPT/HCPCS: 74221

== ENCOUNTER → 2023-08-15 07:34 | Outpatient (BNV) | payer MEDICARE, OTHER, SELFPAY | PROVIDERS: PCP Internal Medicine; Visit Provider Radiology Diagnostic Radiology | DX: R13.10 Dysphagia, unspecified (principal) | CPT/HCPCS: 74221 ==

== ENCOUNTER 2023-09-30 08:16 | Outpatient (REF) | payer MEDICARE, OTHER, SELFPAY ==
--- NOTE | ~2023-09-30 | US_ITS ---
EXAMINATION: US ABDOMEN LIMITED CLINICAL INFORMATION: Alcoholic cirrhosis of liver with ascites. Screening for HCC and ascites. COMPARISON: Ultrasound kidneys and bladder 05/11/2023. Ultrasound abdomen complete 03/01/2023. CT abdomen and pelvis 02/19/2022. TECHNIQUE: Real-time imaging of the right upper quadrant abdominal viscera. FINDINGS: PANCREAS: The pancreas appears atrophic with calcifications throughout the pancreas. The pancreatic duct measures 1.2 cm. LIVER: Normal. The liver is normal in size. The liver contour is normal. Parenchymal echogenicity is normal. No focal hepatic lesion. There is no intrahepatic biliary duct dilatation seen. GALLBLADDER: Normal. The gallbladder is physiologically distended without evidence of stones, sludge, polyps, wall thickening or pericholecystic fluid. COMMON BILE DUCT: The proximal common duct measures 0.5 cm in diameter. The distal common duct is mildly dilated measuring 0.8 cm in diameter. RIGHT KIDNEY: Normal. No hydronephrosis. No renal calculi or focal parenchymal lesions. The kidney measures 10.1 cm in maximum dimension. FREE FLUID: None. US/US abdomen limited IMPRESSION: 1. The pancreas appears atrophic with calcifications throughout the pancreas. The pancreatic duct measures 1.2 cm in diameter. 2. The proximal common duct is normal in size. The distal common duct is mildly dilated measuring 0.8 cm in diameter.
== END 2023-09-30 08:17 | disposition home or self-care (01) ==
LOC: HO.HMGCX 08:16
PROVIDERS: PCP Internal Medicine; Visit Provider Internal Medicine Gastroenterology
DX: K70.31 Alcoholic cirrhosis of liver with ascites (principal)
CPT/HCPCS: 76705

== ENCOUNTER 2023-10-11 13:41 | Outpatient (RCR) | payer MEDICARE, OTHER, SELFPAY | END 2024-02-17 12:15 | disposition short-term general hospital (02) | LOC: HO.WCC 13:41 | PROVIDERS: PCP Internal Medicine; Visit Provider Surgery | DX: E11.621 Type 2 diabetes mellitus with foot ulcer (principal); L97.516 Non-pressure chronic ulcer of other part of right foot with bone involvement without evidence of necrosis; E11.40 Type 2 diabetes mellitus with diabetic neuropathy, unspecified; E11.22 Type 2 diabetes mellitus with diabetic chronic kidney disease; I12.9 Hypertensive chronic kidney disease with stage 1 through stage 4 chronic kidney disease, or unspecified chronic kidney disease; N18.9 Chronic kidney disease, unspecified; I25.2 Old myocardial infarction; A66.3 Hyperkeratosis of yaws; Z87.891 Personal history of nicotine dependence | CPT/HCPCS: 11042; 11044; 11045; 11055; 88304; 88311; 99212; 99213 ==

== ENCOUNTER 2023-11-04 14:12 | Outpatient (AMB) | payer MEDICARE, OTHER, SELFPAY ==
[2023-11-04 14:16] VITALS: BP 130/68; PULSE 69; O2SAT 97; BMI 21.0
--- NOTE | 2023-11-04 14:16 | A.OFFPC_ITS ---
Vital Signs 11/04/23 14:16 Height 5 ft 11 in Weight 150 lb 8 oz BMI 21.0 BP 130/68 Blood Pressure Location Rt brachial Position Sitting Pulse 69 Pulse Source Pulse Oximeter Pulse Oximetry (%) 97 Oxygen Delivery Method Room Air Intake Visit Reasons: Dr. Nathan Khanna, retina surgery Allergies codeine Allergy (Unknown, Verified 11/04/23 14:18) Unknown Medication List - Last Reconciled 11/04/23 by Rufino Rajput MD aspirin 81 mg PO BEDTIME atorvastatin 20 mg PO DAILY 90 days blood-glucose meter As directed cephalexin 500 mg PO BID insulin aspart U-100 (Novolog FlexPen U-100 Insulin aspart) 6 - 9 sliding scale doses subcut BID insulin detemir U-100 (Levemir FlexPen) 17 units subcut DAILY lancets As directed lidocaine-prilocaine 2.5-2.5 % 30 grams topical ONCE [id number] 24,000-76,000 -120,000 unit (Creon) 1 cap PO TID 90 days multivitamin 1 tab PO DAILY mupirocin 2% 1 appl topical BID pen needle, diabetic B.i.d. pregabalin 150 mg PO TID pregabalin 150 mg PO TID spironolactone 25 mg PO DAILY thiamine mononitrate (vit B1) 100 mg PO DAILY 90 days Tobacco use date assessed: 11/04/23 Fall risk assessment: No Falls in past year Last assessed Fall Risk: 11/04/23 Dental Screening Dental Screen Date: 11/04/23 Did you have a dental visit in the last 12 months?: No Did you have a dental problem in the last 6 months where you did not have access to dental care?: No Was dental information given to patient?: No HPI Dr. Nathan Khanna, retina surgery HPI Details Patient is 67-year-old gentleman with a history of diabetic retinopathy, diabetic neuropathy, liver cirrhosis secondary to alcohol use, Cardiomyopathy, lipid disorder, chronic kidney disease stage 3, hypertension, GERD, hearing difficulty, diastolic cardiac abnormality, major depression, BPH Patient is going in for Left eye vitrectomy on 11/10/[address] [facility] [address] Evans I do not have any recent labs for this patient who also have a history of anemia Lab order placed, addendum will be created after the labs are available EKG done today showed normal sinus rhythm 59 beats per minute with nonspecific T-wave abnormality V1 and V2 Medication list reviewed Vital signs are stable Patient may have vitrectomy surgery PFSH Medical History Ascites Chronic kidney disease GERD (gastroesophageal reflux disease) Macrocytic anemia Chronic diabetic ulcer of right foot determined by examination Anemia Osteomyelitis Hearing difficulty Neuropathy Cataracts, bilateral Bunion Heart attack CAD (coronary artery disease) High cholesterol Diabetes Hypertension Surgical History H/O colonoscopy Hx of heart artery stent Hx of cystoscopy Hx of endoscopy History of bunionectomy of right great toe H/O rotator cuff surgery H/O heart bypass surgery Family History Sister HTN (hypertension) Sister HTN (hypertension) Father Heart disease Heart attack Mother Kidney failure Social History Household Members: Significant Other Housing: [facility] Are you a primary director of medicare to a significant other at home: No Do you presently have visiting nurse or other home services: No Alcohol intake: current Alcohol intake frequency: former alcohol drinker Alcohol type: beer Patient Tobacco Use Status: Former Tobacco user Quit Date: 2005 Tobacco use type: Cigarette Cigarette Packs Per Day: 1 Cigarettes Per Day: 20 Years Smoked: 15 e-Cigarette/Vaping Use: Never Used Substance Use Type: Marijuana service: No Current occupational status: unemployed Cognitive needs: No Hearing needs: No Vision needs: No Questionnaire Thrive Questionnaire Date Thrive assessed: 12/16/21 Review of Systems Const Denies chills and Denies fever(s) ENT Denies epistaxis and Denies nasal discharge Card Denies chest pain Resp Denies chest congestion, Denies cough and Denies hemoptysis GI Denies diarrhea and Denies nausea Skin/Breast Denies rash Neuro Reports no additional complaints Psych Reports no additional complaints Endo Reports no additional complaints Physical exam (Primary Care) Vital Signs: Last Vital Signs Pulse 69 11/04/23 14:16 BP 130/68 11/04/23 14:16 Pulse Ox 97 11/04/23 14:16 Oxygen Delivery Method Room Air 11/04/23 14:16 BMI result Body Mass Index 21.0 Tobacco/Smoking Status: Tobacco use Status Tobacco use date assessed 11/04/23 11/04/23 14:20 Patient Tobacco Use Status Former Tobacco user 11/04/23 14:17 Tobacco use type Cigarette 11/04/23 14:17 e-Cigarette/Vaping Use Never Used 11/04/23 14:17 Thrive Assessment: Date of Thrive Assessment Date Thrive assessed 12/16/21 11/04/23 14:17 Const General: cooperative, comfortable and no acute distress Orientation/consciousness: patient oriented x3 HENMT Head: Yes normocephalic Neck Neck: Yes supple Resp Effort & Inspection: normal respiratory effort, no cough and no stridor Cardio Rhythm: regular rhythm Heart sounds: S1 normal heart sound present and S2 normal heart sound present Skin General skin exam: turgor normal Neuro General: patient oriented x3, tone normal and moves all extremities Extrem Right lower extremity: no edema Left lower extremity: no edema Office Procedures EKG [id number], Complete Assessment and Plan Assessment & Plan (1) Pre-op evaluation: Code(s): Z01.818 - Encounter for other preprocedural examination (2) Diabetic retinopathy: Code(s): E11.319 - Type 2 diabetes mellitus with unspecified diabetic retinopathy without macular edema Qualifiers: Diabetes mellitus type: type 1 Diabetic retinopathy severity: with proliferative retinopathy Laterality: unspecified laterality Proliferative retinopathy type: unspecified Qualified Code(s): E10.3599 - Type 1 diabetes mellitus with proliferative diabetic retinopathy without macular edema, unspecified eye (3) penitentiary (current) use of insulin: Code(s): Z79.4 - penitentiary (current) use of insulin (4) Insulin dependent diabetes mellitus with complications: (5) Coronary artery disease: Code(s): I25.10 - Atherosclerotic heart disease of [place] coronary artery without angina pectoris Qualifiers: Associated angina: without angina Coronary Disease-Associated Artery/Lesion type: [place] artery [place] vs. transplanted heart: [place] heart Qualified Code(s): I25.10 - Atherosclerotic heart disease of [place] coronary artery without angina pectoris (6) Lipid disorder: Code(s): E78.9 - Disorder of lipoprotein metabolism, unspecified (7) Cardiomyopathy: Code(s): I42.9 - Cardiomyopathy, unspecified Qualifiers: Cardiomyopathy type: alcoholic Qualified Code(s): I42.6 - Alcoholic cardiomyopathy (8) Stage III chronic kidney disease: Code(s): N18.30 - Chronic kidney disease, stage 3 unspecified Qualifiers: Chronic kidney disease stage 3 subtype: stage 3a (GFR 45-59) Qualified Code(s): N18.31 - Chronic kidney disease, stage 3a Plan Patient is 67-year-old gentleman with a history of diabetic retinopathy, diabetic neuropathy, liver cirrhosis secondary to alcohol use, Cardiomyopathy, lipid disorder, chronic kidney disease stage 3, hypertension, GERD, hearing difficulty, diastolic cardiac abnormality, major depression, BPH Patient is going in for Left eye vitrectomy on 11/10/[address] [facility] [address] Evans I do not have any recent labs for this patient who also have a history of anemia Lab order placed, addendum will be created after the labs are available EKG done today showed normal sinus rhythm 59 beats per minute with nonspecific T-wave abnormality V1 and V2 Medication list reviewed Vital signs are stable Patient may have vitrectomy surgery Orders: Orders Microalbumin, Random (w Creat) Today E11.319 - Type 2 diabetes mellitus with unspecified diabetic retinopathy without macular edema, E78.9 - Disorder of lipoprotein metabolism, unspecified, I25.10 - Atherosclerotic heart disease of [place] coronary artery without angina pectoris, I42.6 - Alcoholic cardiomyopathy, N18.31 - Chronic kidney disease, stage 3a, Z01.818 - Encounter for other preprocedural examination, Z79.4 - penitentiary (current) use of insulin AMB EKG-In Office Today E78.9 - Disorder of lipoprotein metabolism, unspecified, I25.10 - Atherosclerotic heart disease of [place] coronary artery without angina pectoris, Z01.818 - Encounter for other preprocedural examination Hemoglobin A1c Today E11.319 - Type 2 diabetes mellitus with unspecified diabetic retinopathy without macular edema, E78.9 - Disorder of lipoprotein metabolism, unspecified, I25.10 - Atherosclerotic heart disease of [place] coronary artery without angina pectoris, I42.6 - Alcoholic cardiomyopathy, N18.31 - Chronic kidney disease, stage 3a, Z01.818 - Encounter for other preprocedural examination, Z79.4 - schedule announcer (current) use of insulin Complete Blood Count Auto Diff Today E11.319 - Type 2 diabetes mellitus with unspecified diabetic retinopathy without macular edema, E78.9 - Disorder of lipoprotein metabolism, unspecified, I25.10 - Atherosclerotic heart disease of [place] coronary artery without angina pectoris, I42.6 - Alcoholic cardiomyopathy, N18.31 - Chronic kidney disease, stage 3a, Z01.818 - Encounter for other preprocedural examination, Z79.4 - schedule announcer (current) use of insulin Comprehensive Met. Panel Today E11.319 - Type 2 diabetes mellitus with unspecified diabetic retinopathy without macular edema, E78.9 - Disorder of lipoprotein metabolism, unspecified, I25.10 - Atherosclerotic heart disease of [place] coronary artery without angina pectoris, I42.6 - Alcoholic cardiomyopathy, N18.31 - Chronic kidney disease, stage 3a, Z01.818 - Encounter for other preprocedural examination, Z79.4 - penitentiary (current) use of insulin LDL Cholesterol Direct Today E11.319 - Type 2 diabetes mellitus with unspecified diabetic retinopathy without macular edema, E78.9 - Disorder of lipoprotein metabolism, unspecified, I25.10 - Atherosclerotic heart disease of [place] coronary artery without angina pectoris, I42.6 - Alcoholic cardiomyopathy, N18.31 - Chronic kidney disease, stage 3a, Z01.818 - Encounter for other preprocedural examination, Z79.4 - schedule announcer (current) use of insulin Coding Level of Care Code Est Pt Level 5 (74062) Diagnoses Pre-op evaluation Z01.818 Proliferative diabetic retinopathy associated with type 1 diabetes mellitus, unspecified laterality, unspecified proliferative retinopathy type E10.3599 Diabetes mellitus type: type 1 Diabetic retinopathy severity: with proliferative retinopathy Laterality: unspecified laterality Proliferative retinopathy type: unspecified penitentiary (current) use of insulin Z79.4 Insulin dependent diabetes mellitus with complications Coronary artery disease involving [place] coronary artery of [place] heart without angina pectoris I25.10 Associated angina: without angina Coronary Disease-Associated Artery/Lesion type: [place] artery [place] vs. transplanted heart: [place] heart Lipid disorder E78.9 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 Cardiomyopathy type: alcoholic Stage 3a chronic kidney disease N18.31 Chronic kidney disease stage 3 subtype: stage 3a (GFR 45-59) CPT Codes EKG - CPT: 98935-[id number], Complete ([id number]) Comment Reviewing chart, labs, EKG, [id number], charting, coordination of care
== END 2023-11-04 16:35 | disposition home or self-care (01) ==
PROVIDERS: PCP Internal Medicine; Visit Provider Internal Medicine
DX: E10.3599 Type 1 diabetes mellitus with proliferative diabetic retinopathy without macular edema, unspecified eye (principal); Z79.4 Long term (current) use of insulin; I42.6 Alcoholic cardiomyopathy; N18.31 Chronic kidney disease, stage 3a; Z01.818 Encounter for other preprocedural examination; I25.10 Atherosclerotic heart disease of native coronary artery without angina pectoris; E78.9 Disorder of lipoprotein metabolism, unspecified
CPT/HCPCS: 93000; 99214

== ENCOUNTER 2023-11-04 14:39 | Outpatient (REF) | payer MEDICARE, OTHER, SELFPAY ==
[2023-11-04 16:16] LABS: MANUAL DIFF FLAG NO
[2023-11-04 16:28] LABS: Estimated Average Glucose 163 mg/dL; Hemoglobin A1c % 7.3 % (<6.0)
[2023-11-04 16:30] LABS: Basophils Absolute Auto 0.1 X10*3/uL (0.0-0.2); Basophils Percent Auto 0.5 % (0-2); Eosinophils Absolute Auto 0.2 X10*3/uL (0.0-0.4); Eosinophils Percent Auto 1.9 % (0-4); Hematocrit 33.5 % (42.0-52.0); Hemoglobin 11.2 g/dl (14.0-18.0); Imm Gran Abs Auto 0.03 X10*3/uL (0.00-0.03); Imm Gran Pct Auto 0.3 % (0.0-0.4); Lymphocytes Absolute Auto 1.5 X10*3/uL (1.2-4.9); Lymphocytes Percent Auto 16.4 % (20-40); Mean Corpuscular HGB Conc 33.4 g/dl (31.0-36.0); Mean Corpuscular Hemoglobin 31.3 pg (27.0-33.0); Mean Corpuscular Volume 93.6 fL (80.0-98.0); Mean Platelet Volume 11.2 fL (9.4-12.4); Monocytes Absolute Auto 0.8 X10*3/uL (0.1-1.2); Monocytes Percent Auto 8.3 % (2-11); Neutrophils Absolute Auto 6.8 x10*3/uL (2.0-8.3); Neutrophils Percent Auto 72.6 % (45-73); Platelet Count 173 X10*3/uL (160-400); Red Blood Count 3.58 X10*6/uL (4.60-5.80); White Blood Count 9.4 X10*3/uL (4.8-10.8)
[2023-11-04 16:36] LABS: Creatinine Urine 75.91 mg/dL; Microalbum/Creatinine Ratio Ur 68.5 ug/mg cr (<30)
[2023-11-04 16:36] LABS: Alanine Aminotransferase 16 U/L (0-40); Albumin Level 3.8 g/dL (3.5-5.0); Alkaline Phosphatase 81 U/L (39-117); Anion Gap 14 (12-20); Aspartate Amino Transferase 20 U/L (5-37); Bilirubin Total 0.2 mg/dL (0.0-1.0); Blood Urea Nitrogen 29 mg/dL (9-16); Carbon Dioxide 20 mmol/L (22-29); Chloride 109 mmol/L (96-108); Estimated Glomerular Filt Rate 30; Glucose Random 174 mg/dL (60-115); Potassium 4.8 mmol/L (3.3-5.1); Sodium 138 mmol/L (135-145); Total Protein 7.4 g/dL (6.5-8.0)
[2023-11-05 13:04] LABS: LDL Cholesterol Direct 27 mg/dL (<100)
== END 2023-11-04 14:40 | disposition home or self-care (01) ==
LOC: HO.HMGCLDS 14:39
PROVIDERS: PCP Internal Medicine; Visit Provider Internal Medicine
DX: Z01.818 Encounter for other preprocedural examination (principal); N18.31 Chronic kidney disease, stage 3a; I42.6 Alcoholic cardiomyopathy; E78.9 Disorder of lipoprotein metabolism, unspecified; I25.10 Atherosclerotic heart disease of native coronary artery without angina pectoris; E11.319 Type 2 diabetes mellitus with unspecified diabetic retinopathy without macular edema; Z79.4 Long term (current) use of insulin
CPT/HCPCS: 36415; 80053; 82043; 82570; 83036; 83721; 85025

== ENCOUNTER 2023-11-24 07:52 | Outpatient (AMB) | payer MEDICARE, OTHER, SELFPAY ==
--- NOTE | 2023-11-24 08:09 | A.OFFVIS_ITS ---
Vital Signs 11/24/23 08:16 Height 5 ft 11 in Weight 150 lb BMI 20.9 BP 136/65 Blood Pressure Location Lt brachial Position Sitting Pulse 66 Intake Visit Reasons: 6 month follow up Intake Note: Patient follow up acid reflex, US and Barium swallow results. Patient cc: swallowing problems, and between diarrhea and constipation. Patient is been seen in the [place] wound center due a infected blister on his legs. 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 Accompanied by: Self / Same As Patient Allergies codeine Allergy (Unknown, Verified 11/04/23 14:18) Unknown Medication List - Last Reconciled 11/24/23 by Elisha Estevez MD aspirin 81 mg PO BEDTIME atorvastatin 20 mg PO DAILY 90 days blood-glucose meter As directed insulin aspart U-100 (Novolog FlexPen U-100 Insulin aspart) 6 - 9 sliding scale doses subcut BID insulin detemir U-100 (Levemir FlexPen) 17 units subcut DAILY lancets As directed lidocaine-prilocaine 2.5-2.5 % 30 grams topical ONCE oavelc-bvbxikcj-kvdqfji 24,000-76,000 -120,000 unit (Creon) 1 cap PO TID 90 days multivitamin 1 tab PO DAILY mupirocin 2% 1 appl topical BID pen needle, diabetic B.i.d. pregabalin 150 mg PO TID pregabalin 150 mg PO TID spironolactone 25 mg PO DAILY thiamine mononitrate (vit B1) 100 mg PO DAILY 90 days HPI HPI 6 month follow up: Details: GI clinic visit for this 67 YM? with CHF, CAD, IDDM, htn, kidney stones, CKD, seen for FU of liver disease, chronic calcific pancreatitis and colon cancer screening. Followed by Dr Centeno at [facility].? Saw another GI physician in 2019 at [facility] who has retired also. Renal:? Dr Chan Pt was hospitalized at [facility] 05/29/21 to 06/10/21 with cirrhosis, ascites, SBP,? sepsis, anemia, nontraumatic psoas hematoma, Malnutrition, anasarca, pancreatic insufficiency, thrombocytopenia, coagulopathy, alcohol use disorder, coronary artery disease and confusion associated with infection.? Hospital course was complicated by type 2 hepatorenal disease which was treated with midodrine, octreotide, albumin infusions Creatinine improved to 1.4 and octreotide was discontinued. Discharge summary from hospitalization was reviewed in scanned into the patient's medical record. IMAGING STUDIES:??09/2023 ABD US SHOWED: 1. The pancreas appears atrophic with calcifications throughout the pancreas. The pancreatic duct measures 1.2 cm in diameter. 2. The proximal common duct is normal in size. The distal common duct is mildly dilated measuring 0.8 cm in diameter. BARIUM SWALLOW SHOWED: 1. 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 Consistent pooling in the piriform sinuses and vallecula. 2. Small amount of glottic/subglottic aspiration noted. 3. Mildly disorganized esophageal peristalsis. 4. Incomplete evaluation of the stomach, as detailed. Would definitely consider correlating with EGD. 06/01/[address] SCAN PERFORMED AT [facility]: Diffuse pancreatic calcifications with pancreatic atrophy.? Pancreatic duct dilated to 6 mm - likely due to pancreatic atrophy For least catheter in the urinary bladder Bilateral pleural effusion, ascites and diffuse anasarca.? L3-L4 compression fracture - age undetermined ENDOSCOPIC STUDIES: 03/25/23 COLONOSCOPY SHOWED: Two medium sized polyps removed Moderate diverticulosis seen in the entire colon Plan: Repeat Colonoscopy interval based on path results - in 2-3 years if polyps are adenomatous and to check polypectomy site at the hepatic flexure. 03/02/22 [place] [facility] [place] which showed: Distended gallbladder, and normal liver panel time a with normal-sized intrah epatic ducts and mid CBD. Dilated pancreatic duct in head, smoothly transitioning incised to words midbody. No stones noted within the pancreatic duct. Atrophic pancreatic duct with calcifications within the side branches, no discrete masses found in the pancreatic parenchyma. Multiple tortuous blood vessels noted in the lesser sac region close to the splenic vein. Patient was advised to take frequent small meals and continue Creon and refrain from EtOH use. Of note colonoscopy was attempted after EUS in terminated due to poor prep. TODAY'S VISIT: Patient cc: swallowing problems, and between diarrhea and constipation. [facility] a infected blister on his legs. Accompanied by his GF Has wounds in the feet. Had a vitrectomy recently Appetite is good and he has been gaining weight Has diarrhea alternating with constipation Intermittent dysphagia associated with intake of solids - with every meal for the past 6 months, Denies heartburn Has a good appetite and wt gain of 40 lbs over the past year. PAST VISIT: Continues to have a abd cramps with a lot of gas and more bouts of diarrhea. Unable to go for a few days and then has diarrhea. Takes peptobismol when he has diarrhea. Can be on the toilet for 1/2 an hour. Has oatmeal for breakfast, fruit or muffin for lunch. [place] [facility] [place] Colonoscopy was attempted and was unsuccessful due to poor prep. Pt reports bouts of constipation and diarrhea - mostly diarrhea. Denies black stool or rectal bleeding Denies abdominal pain and appetite is better Pregabilin is helping with the appetite. Notes mild lower extremity edema Takes Novolin 17 units in the am and uses regular insulin on a sliding scale the rest of the day. No ETOH in 15 to 16 months Pt was diagnosed with alcoholic cirrhosis a few yrs ago. DM diagnosed 5-6 yrs ago. Complains of worsening upper abdominal pain x 1 month. Pain is constant, 8/10 and radiates to the back. Denies change in pain with eating. Denies nausea, vomiting, dairrhea or constipation.. Takes Lactulose two times a day and has 2 -3 soft BMs daily. Stools are very light Appetite has been good and he is trying to eat three times a day or takes a protein drink. Started loosing wt for the past 6 months Baseline wt is 145 lbs. Weighed 126 lbs on discharge from Rehab and now weighs 110 lbs. Feels he is getting enough calories. Patient denies symptoms of heartburn, dysphagia.? Denies black stools or rectal bleeding. Patient denies loud snoring or sleep apnea - has difficulty sleeping due to neuropathy Denies problems with anesthesia in the past. Denies being on chronic anticoagulation. Quit drinking 3 months ago Denies tobacco use Patient denies known family history of colon polyps, colon cancer or other GI malignancies. Worked as a [employer] person for [employer] Has 2 children in another state (estranged from the patient) PAST EGD/COLONOSCOPY:??2017 and a medium sized tubular adenoma was removed from the left colon.? Diverticulosis was detected.? Repeat colonoscopy was advised in 5 years.? PAST GI HISTORY BY REVIEW OF MEDICAL RECORDS: 12/14/20 pt was seen by Dr. Silvestre for anemia: 64 years old male with PMH of CAD post CABG, diabetes on insulin, HLD, neuropathy, alcohol abuse who I am seeing for assessment for anemia,He actually presents with worsening left big toe ulcer with increased warmth, swelling, erythema and tenderness around the area with drainage. He does have peripheral neuropathy at baseline as well. part of work up revealed anemia He denies hematuria, no melena, or rectal bleeding. He has no GERd, dysphagia, weight loss or fevers. he said he had EGD and colonoscopy mayb 5-6 yrs ago, results unknown Imaging suggestive of osteomyelitis. 1/ Macrocytic anemia, maybe due to diet, or chronic anemia from osteomyelitis or bone marrow disease, no overt GI blood loss PLAN: 1/ priority right now is treatment of the osteomyelitis, would defer EGD and colonoscopy to either early outpatient or after few days of ABX therapy. Discussed with primary team. Meantime PPI e.g pantoprazole 40 mg OD and fluid/vol resuscitate, if clinical status changes and he has overt GI bleeding then can change plan accordingly [facility] Medical History Ascites Chronic kidney disease GERD (gastroesophageal reflux disease) Macrocytic anemia Chronic diabetic ulcer of right foot determined by examination Anemia Osteomyelitis Hearing difficulty Neuropathy Cataracts, bilateral Bunion Heart attack CAD (coronary artery disease) High cholesterol Diabetes Hypertension Surgical History H/O colonoscopy Hx of heart artery stent Hx of cystoscopy Hx of endoscopy History of bunionectomy of right great toe H/O rotator cuff surgery H/O heart bypass surgery Family History Sister HTN (hypertension) Sister HTN (hypertension) Father Heart disease Heart attack Mother Kidney failure Social History Household Members: Significant Other [facility] Are you a primary emergency care attendant to a significant other at home: No Do you presently have visiting nurse or other home services: No Alcohol intake: current Alcohol intake frequency: former alcohol drinker Alcohol type: beer Patient Tobacco Use Status: Former Tobacco user Quit Date: 2005 Tobacco use type: Cigarette Cigarette Packs Per Day: 1 Cigarettes Per Day: 20 Years Smoked: 15 e-Cigarette/Vaping Use: Never Used Substance Use Type: Marijuana service: No Current occupational status: unemployed Cognitive needs: No Hearing needs: No Vision needs: No Review of Systems Const All systems reviewed & are unremarkable except as noted in HPI and below Physical Exam Const General: healthy appearing and no acute distress Nutritional Appearance: average body habitus Orientation/consciousness: patient oriented x3 Limitations: no limitations HEENT Head: Yes normal to inspection Ears: hearing grossly normal bilaterally Eyes Sclerae: sclerae normal Pupils: Equal, round and reactive pupils present Neck Neck: Yes normal visual inspection Chest Chest palpation & inspection: normal inspection of the chest Resp Effort & Inspection: normal respiratory effort Auscultation: clear to auscultation bilaterally Cardio Palpation: normal PMI Rate: regular rate Rhythm: regular rhythm Heart sounds: S1 normal heart sound present, S2 normal heart sound present and no murmurs GI Palpation (GI): Soft to palpation, nontender and No hepatosplenomegaly present Auscultation: normal bowel sounds Rectal Exam - Male: Yes deferred Skin General skin exam: no rashes or lesions noted Neuro General: patient oriented x3, gait normal and moves all extremities Cranial nerves: Yes Equal, round and reactive pupils present Psych Appearance: grossly normal Mental Status: mental status grossly normal Assessment & Plan Assessment & Plan (1) Acute on chronic anemia: Code(s): D64.9 - Anemia, unspecified Category: Medical (2) Chronic alcoholic pancreatitis: Code(s): K86.0 - Alcohol-induced chronic pancreatitis Category: Medical (3) Alcoholic cirrhosis of liver with ascites: Code(s): K70.31 - Alcoholic cirrhosis of liver with ascites Category: Medical (4) Abnormal MRI of abdomen: Code(s): R93.5 - Abnormal findings on diagnostic imaging of other abdominal regions, including retroperitoneum Category: Medical (5) Dysphagia, pharyngoesophageal phase: Code(s): R13.14 - Dysphagia, pharyngoesophageal phase Category: Medical Plan 67 YM with poorly controlled DM complicated by neuropathy and nephropathy, cardiomyopathy, ESLD, chronic calcific pancreatitis referred urgently due to ongoing weight loss despite good appetite and adequate p.o. intake. Patient has decompensated cirrhosis complicated by ascites and hepatic encephalopathy - had mild ascites on physical exam. Patient has a history of acute and chronic pancreatitis requiring hospitalization in past. Pt's weight loss is likely a combination of uncontrolled DM and malabsorption due to chronic calcific pancreatitis. Pt is also at increased risk for Pancreatic Cancer (due to chronic pancreatitis) and HCC. I will check lab and stool tests for malabsorption.? Patient was advised to start pancreatic enzymes with meals and monitor his weight. He needs better control of his diabetes - he would benefit from referral to Endocrinology. 03/02/22 [place] [facility] [place] which showed: Distended gallbladder, and normal liver panel time a with normal-sized intrahepatic ducts and mid CBD. Dilated pancreatic duct in head, smoothly transitioning to normal size in midbody. No stones noted within the pancreatic duct. Atrophic pancreatic duct with calcifications within the side branches, no discrete masses found in the pancreatic parenchyma. Multiple tortuous blood vessels noted in the lesser sac region close to the splenic vein. Patient was advised to take frequent small meals and continue Creon and refrain from EtOH use. Of note colonoscopy was attempted after EUS and terminated due to poor prep. 03/25/2023 colonoscopy was performed in findings as noted above 05/26/23 Has diarrhea alternating with constipation Intermittent dysphagia associated with intake of solids - with every meal for the past 6 months, Has a good appetite and wt gain of 40 lbs over the past year. Patient advised to schedule a barium swallow for evaluation of dysphagia. He is due for an abdominal ultrasound in spring for follow-up of cirrhosis MELD score is 12 11/24/23 Pt complains of dysphagia to solids for the past 6 months Barium swallow showed moderate to severe cricopharyngeal achalasia and incomplete evaluation of the stomach Pt advised further evaluation with EGD with esophageal balloon dilation - scheduled on 11/25/23. FU in 6 month Coding Level of Care Code Est Pt Level 4 (87105) Diagnoses Acute on chronic anemia D64.9 Chronic alcoholic pancreatitis K86.0 Alcoholic cirrhosis of liver with ascites K70.31 Abnormal MRI of abdomen R93.5 Dysphagia, pharyngoesophageal phase R13.14 Time Spent (min) 23
[2023-11-24 08:16] VITALS: BP 136/65; PULSE 66; BMI 20.9
== END 2023-11-24 08:44 | disposition home or self-care (01) ==
PROVIDERS: PCP Internal Medicine; Visit Provider Internal Medicine Gastroenterology
DX: D64.9 Anemia, unspecified (principal); K86.0 Alcohol-induced chronic pancreatitis; K70.31 Alcoholic cirrhosis of liver with ascites; R93.5 Abnormal findings on diagnostic imaging of other abdominal regions, including retroperitoneum; R13.14 Dysphagia, pharyngoesophageal phase
CPT/HCPCS: 99214

== ENCOUNTER → 2023-11-24 07:52 | Outpatient (BNVA) | payer MEDICARE, OTHER, SELFPAY | PROVIDERS: PCP Internal Medicine; Visit Provider Internal Medicine Gastroenterology | DX: K86.0 Alcohol-induced chronic pancreatitis (principal); K70.31 Alcoholic cirrhosis of liver with ascites; D64.9 Anemia, unspecified; R93.5 Abnormal findings on diagnostic imaging of other abdominal regions, including retroperitoneum; R13.14 Dysphagia, pharyngoesophageal phase | CPT/HCPCS: 99212 ==

== ENCOUNTER 2023-11-25 07:51 | Day surgery (SDC) | payer MEDICARE, OTHER, SELFPAY ==
--- NOTE | 2023-11-25 08:19 | P.CONAN_ITS ---
[facility] Active Problems Active Problems: All Active Problems Diabetic retinopathy (Acute) Cellulitis of foot (Acute) Foot ulcer (Acute) Cataract, left (Acute) Dysphagia, pharyngoesophageal phase (Acute) Medicare annual wellness visit, initial (Acute) shelter (current) use of insulin (Acute) Insulin dependent diabetes mellitus with complications (Acute) Diabetic neuropathy (Acute) Coronary artery disease (Acute) Lipid disorder (Acute) Hearing difficulty (Acute) Encounter for general adult medical examination with abnormal findings (Acute) Establishing care with new doctor, encounter for (Acute) Normocytic anemia (Acute) Acute on chronic anemia (Acute) Osteomyelitis of left foot (Acute) Acute diastolic (congestive) heart failure (Acute) Diabetic ulcer of left foot (Acute) Major depression, recurrent (Acute) Hospital discharge follow-up (Acute) Benign prostatic hyperplasia (Acute) Acid reflux (Acute) 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 condition (Acute) Swelling of lower extremity (Acute) Water retention (Acute) Cellulitis of leg, left (Acute)k Pre-op evaluation (Acute) Cataract (Acute) Low blood pressure (Acute) History of alcohol abuse (Acute) Alcoholic liver disease (Acute) Cardiomyopathy (Acute) Stage III chronic kidney disease (Acute) DNR (do not resuscitate) discussion (Acute) Diabetic ulcer of right foot (Acute) Chronic alcoholic pancreatitis (Acute) Alcoholic cirrhosis of liver with ascites (Acute) Weight loss (Acute) Uncontrolled diabetes mellitus (Acute) Abnormal MRI of abdomen (Acute) Chronic pain syndrome (Acute) Difficulty sleeping (Acute) Painful diabetic neuropathy (Acute) Diet-controlled diabetes mellitus (Acute) Unstable gait (Acute) Past Medical History Medical History Ascites Chronic kidney disease GERD (gastroesophageal reflux disease) Macrocytic anemia Chronic diabetic ulcer of right foot determined by examination Anemia Osteomyelitis Hearing difficulty Neuropathy Cataracts, bilateral Bunion Heart attack CAD (coronary artery disease) High cholesterol Diabetes Hypertension Functional capacity: independent ambulation Family History Family History Sister HTN (hypertension) Sister HTN (hypertension) Father Heart disease Heart attack Mother Kidney failure Family history of problems with anesthesia: No Surgical History Surgical History H/O colonoscopy Hx of heart artery stent Hx of cystoscopy Hx of endoscopy History of bunionectomy of right great toe H/O rotator cuff surgery H/O heart bypass surgery History of Problems with Anesthesia: No Social History Social History Household Members: Significant [facility] Are you a primary medicare specialist to a significant other at home: No Do you presently have visiting nurse or other home services: No Alcohol intake: current Alcohol intake frequency: former alcohol drinker Alcohol type: beer Patient Tobacco Use Status: Former Tobacco user Quit Date: 2005 Tobacco use type: Cigarette Cigarette Packs Per Day: 1 Cigarettes Per Day: 20 Years Smoked: 15 e-Cigarette/Vaping Use: Never Used Substance Use Type: Marijuana service: No Current occupational status: unemployed Cognitive needs: No Hearing needs: No Vision needs: No Meds Allergies Allergy/AdvReac Type Severity Reaction Status Date / Time codeine Allergy Unknown Unknown Verified 11/25/23 08:40 Home Medications ?Medication ?Instructions ?Recorded ?Confirmed ?Last Taken ?Type aspirin 81 mg tablet,delayed 81 mg PO BEDTIME 12/12/20 11/25/23 03/23/23 History release blood-glucose meter #1 ea 12/12/20 11/25/23 Unknown History lancets 28 gauge #100 ea 12/12/20 11/25/23 Unknown History multivitamin 1 tab PO DAILY 12/12/20 11/25/23 12/12/20 History insulin aspart U-100 100 unit/mL 6 - 9 sliding scale dose subcut BID 09/16/22 11/25/23 02/23/23 History (3 mL) subcutaneous pen (Novolog FlexPen U-100 Insulin aspart) insulin detemir U-100 100 unit/mL 17 unit subcut DAILY 03/23/23 11/25/23 03/23/23 History (3 mL) subcutaneous pen (Levemir FlexPen) Exam Airway TM Dist: >3cm Neck ROM: Full Heart: RRR Lungs: CTA Assessment and Plan Assessment Anesthesia Assessment: Anesthesia Plan Discussed Final Anesthetic Review Family History of Problems with Anesthesia: No History of Problems with Anesthesia: No NPO: Yes ASA Class: III Final Preanesthetic Review: Meds/Allgs Chart Reviewed, Consent Obtained/Reviewed and Anes Risks/Benef Reviewed Patient Risk: Intermediate Procedure Risk: Low Anesthetic Plan Anesthetic Plan: MAC: Disposition: Standard PACU
[2023-11-25 08:38] VITALS: BMI 22.3
[2023-11-25 08:46] VITALS: BP 153/73; PULSE 61; RESP 18; TEMP 36.3; O2SAT 100
[2023-11-25 09:01] LABS: Glucose, Whole Blood 183 mg/dL (60-115)
--- NOTE | 2023-11-25 10:03 | MHC.SHP ---
Pre-Procedural Eval Section A - 24 Hr Update-Section A only Date of Service: 11/25/23 The patient is an INPATIENT: No Changes since office visit: Yes Patient answered all questions; No Cold of Flu in the past 2 weeks, No New Medical Problems and No Changes in Medication The patient has been examined within 24 hours of the surgical procedure. The History & Physical has been completed within 30 days and I have reviewed it.: Yes Section B - Complete if H&P > 30 days Chief Complaint: Dysphagia, Allergies: Allergies Allergy/AdvReac Type Severity Reaction Status Date / Time codeine Allergy Unknown Unknown Verified 11/25/23 08:40 Plan Diagnosis/Plan: Unchanged I have reviewed the history and physical and performed a pertinent physical examination on my patient. No changes have occurred unless specified. Time Spent With Patient Time: Total time managing care of this patient today ____ minutes.
--- NOTE | 2023-11-25 11:39 | P.OP_ITS ---
Operative Note Operative Note Date of Service: 11/25/23 Narrative: FLEXIBLE TRANSORAL UPPER GASTROINTESTINAL ENDOSCOPY WITH BIOPSIES AND ESOPHAGEAL BALLOON DILATION Pre-op diagnosis: Dysphagia, abnormal barium swallow Post-op diagnosis: Dysphagia, Gastritis, Endoscopist:? Elisha Estevez MD Anesthesia:?MAC UPPER ENDOSCOPY Consent: Indications for the procedure and potential complications of bleeding, perforation, reaction to medications and missed diagnosis were discussed with the patient and informed consent was obtained. Instrument: Olympus GIF H 190 mid size upper endoscope Monitoring: Vital signs and clinical assessment, continuous EKG monitoring, Pulse oximetry, Carbon Dioxide monitoring and blood pressure monitoring were done throughout the procedure. Procedure: The patient was placed in the left lateral decubitis position and pre-procedure medications were administered and a bite block was placed. The endoscope was inserted into the mouth and advanced under direct vision to the third part of duodenum. A careful inspection was made as the upper endoscope was withdrawn including a retroflexed examination of the proximal stomach; Findings and interventions are described below. Findings: Larynx: Normal Esophagus: GE junction at 40 cms. Mildly tortuous esophagus with decreased contractions without stricture or ring. Esophageal balloon dilation of distal esophagus was performed with a 20 mm (60F) x 60 seconds Esophageal balloon dilation of proximal esophagus was performed with an 18 mm (54 F) x 60 seconds Stomach: Mosaic appearance of the stomach consistent with mild portal gastro eleazar. Moderate gastric antral erythema - biopsies were obtained from the antrum. Grade 2 flap valve and no gastric varices noted on retroflexed examination of the cardia. Duodenum: Normal bulb and descending duodenum Intervention: Biopsies as noted above Impression and Post Procedure Diagnosis: Endoscopy Findings: ESOPHAGUS: Mildly tortuous esophagus. Esophageal balloon dilation was performed. STOMACH: Mosaic appearance of the stomach consistent with mild portal gastropathy. Moderate diffuse gastric erythema - biopsies were obtained from the antrum. Plan: Pt has a FU appointment on 12/01/[address] Estevez. Above findings were reviewed with the patient.
[2023-11-25 12:11] VITALS: BP 90/50; PULSE 55; RESP 16; TEMP 36.1; O2SAT 99
[2023-11-25 12:25] VITALS: BP 108/57; PULSE 53; RESP 15; O2SAT 99
[2023-11-25 12:36] VITALS: BP 134/65; PULSE 52; RESP 16; TEMP 36.2; O2SAT 98
--- NOTE | 2023-11-25 14:05 | HO.POSTANES ---
Post Anesthesia Evaluation Post Anesthesia Evaluation Date of Service: 11/25/23 Vital Signs: Vital Signs Temp Pulse Resp BP Pulse Ox O2 Del Method O2 Flow Rate 11/25/23 12:36 97.2 F 52 16 134/65 98 Room Air 6 11/25/23 12:25 53 15 108/57 L 99 Simple Mask 11/25/23 12:11 97 F 55 16 90/50 L 99 Simple Mask 6 11/25/23 08:46 97.4 F 61 18 153/73 H 100 Room Air Anesthesia: Monitored Mental Status: Awake Pain Control: Satisfactory Nausea/Vomiting: None Hydration: Adequate Anesthesia-Related Issues: No Anes. Related Issues
== END 2023-11-25 13:25 | disposition home or self-care (01) ==
PROVIDERS: PCP Internal Medicine; Visit Provider Internal Medicine Gastroenterology
PROC: 0DJ08ZZ Inspection of Upper Intestinal Tract, Via Natural or Artificial Opening Endoscopic (ICD-10-PCS; CPT 43235; principal; 2023-11-25 09:20)
DX: R13.10 Dysphagia, unspecified (principal); R93.3 Abnormal findings on diagnostic imaging of other parts of digestive tract; K22.89 Other specified disease of esophagus; K29.70 Gastritis, unspecified, without bleeding; I13.0 Hypertensive heart and chronic kidney disease with heart failure and stage 1 through stage 4 chronic kidney disease, or unspecified chronic kidney disease; I50.9 Heart failure, unspecified; N18.9 Chronic kidney disease, unspecified; E11.22 Type 2 diabetes mellitus with diabetic chronic kidney disease; Z79.4 Long term (current) use of insulin; Z79.82 Long term (current) use of aspirin
CPT/HCPCS: 43249; 43239; 82947; 88305; 88313; 88342; C1726; J1596; J2704

== ENCOUNTER → 2023-11-25 07:51 | Outpatient (BNV) | payer MEDICARE, OTHER, SELFPAY | PROVIDERS: PCP Internal Medicine; Visit Provider Internal Medicine Gastroenterology | DX: R13.10 Dysphagia, unspecified (principal); K29.70 Gastritis, unspecified, without bleeding; R93.3 Abnormal findings on diagnostic imaging of other parts of digestive tract | CPT/HCPCS: 43239; 43249 ==

== ENCOUNTER 2023-12-01 10:35 | Outpatient (AMB) | payer MEDICARE, OTHER, SELFPAY ==
--- NOTE | 2023-12-01 10:37 | MHC.OFFVIS ---
Intake Visit Reasons: post op/ Colonoscopy results Intake Note: Patient follow up for EGD results. Patient denies any GI issues. Hospital Manager Required: No Allergies codeine Allergy (Unknown, Verified 12/01/23 10:37) Unknown HPI HPI post op/ Colonoscopy results: Details: visit for this 67 YM? with CHF, CAD, IDDM, htn, kidney stones, CKD, seen for FU of liver disease, chronic calcific pancreatitis and colon cancer screening. Followed by Dr Centeno at [facility] [place].? Saw another GI physician in 2019 at [facility] [place] who has retired also. Renal:? Dr Chan Pt was hospitalized at [facility] 05/29/21 to 06/10/21 with cirrhosis, ascites, SBP,? sepsis, anemia, nontraumatic psoas hematoma, Malnutrition, anasarca, pancreatic insufficiency, thrombocytopenia, coagulopathy, alcohol use disorder, coronary artery disease and confusion associated with infection.? Hospital course was complicated by type 2 hepatorenal disease which was treated with midodrine, octreotide, albumin infusions Creatinine improved to 1.4 and octreotide was discontinued. Discharge summary from hospitalization was reviewed in scanned into the patient's medical record. IMAGING STUDIES:??09/2023 ABD US SHOWED: 1. The pancreas appears atrophic with calcifications throughout the pancreas. The pancreatic duct measures 1.2 cm in diameter. 2. The proximal common duct is normal in size. The distal common duct is mildly dilated measuring 0.8 cm in diameter. BARIUM SWALLOW SHOWED: 1. 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 Consistent pooling in the piriform sinuses and vallecula. 2. Small amount of glottic/subglottic aspiration noted. 3. Mildly disorganized esophageal peristalsis. 4. Incomplete evaluation of the stomach, as detailed. Would definitely consider correlating with EGD. 06/01/[address] SCAN PERFORMED AT [facility]: Diffuse pancreatic calcifications with pancreatic atrophy.? Pancreatic duct dilated to 6 mm - likely due to pancreatic atrophy For least catheter in the urinary bladder Bilateral pleural effusion, ascites and diffuse anasarca.? L3-L4 compression fracture - age undetermined ENDOSCOPIC STUDIES: 11/25/23 EGD SHOWED: Esophagus: GE junction at 40 cms. Mildly tortuous esophagus with decreased contractions without stricture or ring. Esophageal balloon dilation of distal esophagus was performed with a 20 mm (60F) x 60 seconds Esophageal balloon dilation of proximal esophagus was performed with an 18 mm (54 F) x 60 seconds Stomach: Mosaic appearance of the stomach consistent with mild portal gastropathy. Moderate gastric antral erythema - biopsies were obtained from the antrum. Grade 2 flap valve and no gastric varices noted on retroflexed examination of the cardia. Impression and Post Procedure Diagnosis: Endoscopy Findings: ESOPHAGUS: Mildly tortuous esophagus. Esophageal balloon dilation was performed. STOMACH: Mosaic appearance of the stomach consistent with mild portal gastropathy. Moderate diffuse gastric erythema - biopsies were obtained from the antrum. Plan: Pt has a FU appointment on 12/01/[address] Estevez. BIOPSIES SHOWED: Stomach, antrum, biopsy: Antral-type mucosa with mild chronic inactive inflammation and focal intestinal metaplasia; negative for dysplasia; no Helicobacter organisms seen 03/25/23 COLONOSCOPY SHOWED: Two medium sized polyps removed Moderate diverticulosis seen in the entire colon Plan: Repeat Colonoscopy interval based on path results - in 2 years if polyps are adenomatous and to check polypectomy site at the hepatic flexure. 03/02/22 Pt had an EUS at [facility] by Dr Mc which showed: Distended gallbladder, and normal liver panel time a with normal-sized intrahepatic ducts and mid CBD. Dilated pancreatic duct in head, smoothly transitioning to midbody. No stones noted within the pancreatic duct. Atrophic pancreatic duct with calcifications within the side branches, no discrete masses found in the pancreatic parenchyma. Multiple tortuous blood vessels noted in the lesser sac region close to the splenic vein. Patient was advised to take frequent small meals and continue Creon and refrain from EtOH use. Of note colonoscopy was attempted after EUS in terminated due to poor prep. TODAY'S VISIT: Noted a slight sore throat for a few days after EGD Denies any change in dysphagia Biopsy results reviewed PAST VISIT: Patient cc: swallowing problems, and between diarrhea and constipation. [facility] infected blister on his legs. Accompanied by his GF Has wounds in the feet. Had a vitrectomy recently Appetite is good and he has been gaining weight Has diarrhea alternating with constipation Intermittent dysphagia associated with intake of solids - with every meal for the past 6 months, Denies heartburn Has a good appetite and wt gain of 40 lbs over the past year. Continues to have a abd cramps with a lot of gas and more bouts of diarrhea. Unable to go for a few days and then has diarrhea. Takes peptobismol when he has diarrhea. Can be on the toilet for 1/2 an hour. Has oatmeal for breakfast, fruit or muffin for lunch. Had EUS at [facility] - report was requested Colonoscopy was attempted and was unsuccessful due to poor prep. Pt reports bouts of constipation and diarrhea - mostly diarrhea. Denies black stool or rectal bleeding Denies abdominal pain and appetite is better Pregabilin is helping with the appetite. Notes mild lower extremity edema Takes Novolin 17 units in the am and uses regular insulin on a sliding scale the rest of the day. No ETOH in 15 to 16 months Pt was diagnosed with alcoholic cirrhosis a few yrs ago. DM diagnosed 5-6 yrs ago. Complains of worsening upper abdominal pain x 1 month. Pain is constant, 8/10 and radiates to the back. Denies change in pain with eating. Denies nausea, vomiting, dairrhea or constipation.. Takes Lactulose two times a day and has 2 -3 soft BMs daily. Stools are very light Appetite has been good and he is trying to eat three times a day or takes a protein drink. Started loosing wt for the past 6 months Baseline wt is 145 lbs. Weighed 126 lbs on discharge from Rehab and now weighs 110 lbs. Feels he is getting enough calories. Patient denies symptoms of heartburn, dysphagia.? Denies black stools or rectal bleeding. Patient denies loud snoring or sleep apnea - has difficulty sleeping due to neuropathy Denies problems with anesthesia in the past. Denies being on chronic anticoagulation. Quit drinking 3 months ago Denies tobacco use Patient denies known family history of colon polyps, colon cancer or other GI malignancies. Worked as a [employer] person for [employer] Has 2 children in another state (estranged from the patient) PAST EGD/COLONOSCOPY:??2017 and a medium sized tubular adenoma was removed from the left colon.? Diverticulosis was detected.? Repeat colonoscopy was advised in 5 years.? PAST GI HISTORY BY REVIEW OF MEDICAL RECORDS: 12/14/20 pt was seen by Dr. Silvestre for anemia: 64 years old male with PMH of CAD post CABG, diabetes on insulin, HLD, neuropathy, alcohol abuse who I am seeing for assessment for anemia,He actually presents with worsening left big toe ulcer with increased warmth, swelling, erythema and tenderness around the area with drainage. He does have peripheral neuropathy at baseline as well. part of work up revealed anemia He denies hematuria, no melena, or rectal bleeding. He has no GERd, dysphagia, weight loss or fevers. he said he had EGD and colonoscopy mayb 5-6 yrs ago, results unknown Imaging suggestive of osteomyelitis. 1/ Macrocytic anemia, maybe due to diet, or chronic anemia from osteomyelitis or bone marrow disease, no overt GI blood loss PLAN: 1/ priority right now is treatment of the osteomyelitis, would defer EGD and colonoscopy to either early outpatient or after few days of ABX therapy. Discussed with primary team. Meantime PPI e.g pantoprazole 40 mg OD and fluid/vol resuscitate, if clinical status changes and he has overt GI bleeding then can change plan accordingly [facility] Medical History (Updated 11/25/23 @ 17:28 by Elisha Estevez MD) Ascites Chronic kidney disease GERD (gastroesophageal reflux disease) Macrocytic anemia Chronic diabetic ulcer of right foot determined by examination Anemia Osteomyelitis Hearing difficulty Neuropathy Cataracts, bilateral Bunion Heart attack CAD (coronary artery disease) High cholesterol Diabetes Hypertension Surgical History History of esophagogastroduodenoscopy (EGD) H/O colonoscopy Hx of heart artery stent Hx of cystoscopy Hx of endoscopy History of bunionectomy of right great toe H/O rotator cuff surgery H/O heart bypass surgery Family History Sister HTN (hypertension) Sister HTN (hypertension) Father Heart disease Heart attack Mother Kidney failure Social History Household Members: Significant Other Housing: [facility] Are you a primary healthcare economics manager to a significant other at home: No Do you presently have visiting nurse or other home services: No Alcohol intake: current Alcohol intake frequency: former alcohol drinker Alcohol type: beer Patient Tobacco Use Status: Former Tobacco user Quit Date: 2005 Tobacco use type: Cigarette Cigarette Packs Per Day: 1 Cigarettes Per Day: 20 Years Smoked: 15 e-Cigarette/Vaping Use: Never Used Substance Use Type: Marijuana service: No Current occupational status: unemployed Cognitive needs: No Hearing needs: No Vision needs: No Review of Systems Const All systems reviewed & are unremarkable except as noted in HPI and below Telehealth Telehealth Telehealth Platform: Telephone Location of patient: address on file Patient Identification confirmed using: Name, : Yes Telehealth method: voice only Patient verbally consented to treatment: Yes Patient verbally consented to billing insurance company: Yes Patient informed of any privacy concerns related to visit: Yes Minutes spent on Phone/Video with Pt.: 15 Assessment & Plan Assessment & Plan (1) Acute on chronic anemia: Code(s): D64.9 - Anemia, unspecified Category: Medical (2) Acid reflux: Code(s): K21.9 - Gastro-esophageal reflux disease without esophagitis Category: Medical (3) Chronic alcoholic pancreatitis: Code(s): K86.0 - Alcohol-induced chronic pancreatitis Category: Medical (4) Alcoholic cirrhosis of liver with ascites: Code(s): K70.31 - Alcoholic cirrhosis of liver with ascites Category: Medical (5) Dysphagia, pharyngoesophageal phase: Code(s): R13.14 - Dysphagia, pharyngoesophageal phase Category: Medical (6) Cricopharyngeal achalasia: Code(s): K22.0 - Achalasia of cardia Category: Medical Plan 67 YM with poorly controlled DM complicated by neuropathy and nephropathy, cardiomyopathy, ESLD, chronic calcific pancreatitis referred urgently due to ongoing weight loss despite good appetite and adequate p.o. intake. Patient has decompensated cirrhosis complicated by ascites and hepatic encephalopathy - had mild ascites on physical exam. Patient has a history of acute and chronic pancreatitis requiring hospitalization in past. Pt's weight loss is likely a combination of uncontrolled DM and malabsorption due to chronic calcific pancreatitis. Pt is also at increased risk for Pancreatic Cancer (due to chronic pancreatitis) and HCC. I will check lab and stool tests for malabsorption.? Patient was advised to start pancreatic enzymes with meals and monitor his weight. He needs better control of his diabetes - he would benefit from referral to Endocrinology. 03/02/22 Pt had an EUS at [facility] by Dr Mc which showed: Distended gallbladder, and normal liver panel time a with normal-sized intrahepatic ducts and mid CBD. Dilated pancreatic duct in head, smoothly transitioning to normal size in midbody. No stones noted within the pancreatic duct. Atrophic pancreatic duct with calcifications within the side branches, no discrete masses found in the pancreatic parenchyma. Multiple tortuous blood vessels noted in the lesser sac region close to the splenic vein. Patient was advised to take frequent small meals and continue Creon and refrain from EtOH use. Of note colonoscopy was attempted after EUS and terminated due to poor prep. 03/25/2023 colonoscopy was performed in findings as noted above 05/26/23 Has diarrhea alternating with constipation Intermittent dysphagia associated with intake of solids - with every meal for the past 6 months, Has a good appetite and wt gain of 40 lbs over the past year. Patient advised to schedule a barium swallow for evaluation of dysphagia. He is due for an abdominal ultrasound in spring for follow-up of cirrhosis MELD score is 12 11/24/23 Pt complains of dysphagia to solids for the past 6 months Barium swallow showed moderate to severe cricopharyngeal achalasia and incomplete evaluation of the stomach Pt advised further evaluation with EGD with esophageal balloon dilation - scheduled on 11/25/23. 12/01/23 Noted a slight sore throat for a few days after EGD Denies any change in dysphagia Biopsy results reviewed - gastric metaplasia and advised repeat EGD in 3 years. Pt was offered referreal to ENT for cricopharyngeal myotomy versus Botox injection. Patient would prefer to monitor his symptoms for now He was advised to contact my office if he noted worsening dysphagia symptoms FU in 6 months Coding Level of Care Code Tele Est Pt Level 2 (78885) Diagnoses Acute on chronic anemia D64.9 Acid reflux K21.9 Chronic alcoholic pancreatitis K86.0 Alcoholic cirrhosis of liver with ascites K70.31 Dysphagia, pharyngoesophageal phase R13.14 Cricopharyngeal achalasia K22.0
== END 2023-12-01 12:32 | disposition home or self-care (01) ==
LOC: HO.HGI 10:35
PROVIDERS: PCP Internal Medicine; Visit Provider Internal Medicine Gastroenterology
DX: D64.9 Anemia, unspecified (principal); K21.9 Gastro-esophageal reflux disease without esophagitis; K86.0 Alcohol-induced chronic pancreatitis; K70.31 Alcoholic cirrhosis of liver with ascites; R13.14 Dysphagia, pharyngoesophageal phase; K22.0 Achalasia of cardia
CPT/HCPCS: 99442

== ENCOUNTER → 2023-12-01 10:35 | Outpatient (BNVA) | payer MEDICARE, OTHER, SELFPAY | PROVIDERS: PCP Internal Medicine; Visit Provider Internal Medicine Gastroenterology ==

== ENCOUNTER → 2024-03-29 14:37 | Outpatient (RCR) | payer MEDICARE, OTHER, SELFPAY ==
[2021-01-05 11:10] VITALS: BP 114/73; PULSE 66; RESP 14; TEMP 36.4; O2SAT 100; BMI 18.6
--- NOTE | 2021-01-05 11:49 | P.CNHO_ITS ---
Subjective - Subjective Chief complaint: Weakness Consult date: 01/05/21 Requesting Physician: Dr. Rajput Primary Care Provider: Rufino Rajput MD HPI - Consult Narrative Reason for consult: Macrocytic anemia Narrative: Quentin Lara is a 65 year old male with multiple medical problems but chiefly poorly controlled diabetes with recently diagnosed left foot osteomyelitis was sent for evaluation of anemia. He has been told of anemia for several years, all his previous care was at [facility]. He says he we used to take oral iron supplementation on and off in the past. He received blood transfusion in November of 2020 for hemoglobin of 7.5 gram/dL when he was admitted for osteomyelitis. He reports loss of appetite and weight loss for about 7-8 months. He denies hematochezia melena. He had a colonoscopy a few years ago at [facility] and was told of a few polyps. He reports neuropathy of his feet and poor balance. He says he used to drink alcohol heavily in the remote past but now he drinks only on special occasions. He has a PICC line and is receiving IV antibiotics. He has been getting weekly blood work. He is scheduled to finish treatment with antibiotics in about 2 weeks. He denies any fever, chills, chest pain or shortness of breath. Review of Systems - Constitutional Reports as per HPI, Reports no additional constitutional complaints - Cardiovascular Reports no additional cardiovascular complaints - Respiratory Reports no additional respiratory complaints - Gastrointestinal Reports no additional gastrointestinal complaints Oncology Screenings - ECOG Performance Status ECOG Performance Status: 2 [facility] Medical History: Medical History (Last Updated 12/15/20 @ 12:32 by Alyssia Schuster MD) Anemia Bunion CAD (coronary artery disease) Cataracts, bilateral Chronic diabetic ulcer of right foot determined by examination Diabetes Hearing difficulty Heart attack High cholesterol Hypertension Macrocytic anemia Neuropathy Osteomyelitis Osteomyelitis of left foot Family History: Family History (Last Updated 01/05/21 @ 11:17 by Gwen Macias) Sister HTN (hypertension) Sister HTN (hypertension) Father Heart disease Heart attack Mother Kidney failure Surgical History: Surgical History (Last Updated 01/05/21 @ 11:17 by Gwen Macias) H/O heart bypass surgery H/O rotator cuff surgery History of bunionectomy of right great toe Social History: Social History (Last Updated 01/05/21 @ 11:17 by Gwen Macias) Living Situation History: Household Members: Significant Other Housing: Condominium Are you a primary critical care rn to a significant other at home: No Do you presently have visiting nurse or other home services: No Alcohol History: Alcohol intake: current Alcohol History Details: Alcohol intake frequency: holiday/special occasion Alcohol type: beer Tobacco History: Patient Tobacco Use Status: Former Tobacco user Cigarette Packs Per Day: 1 Cigarettes Per Day: 20.0 Smoke Quit Date: 2005 Substance Use History: Use of substances other than those prescribed or required for medical reasons : No Substance Use Type: Marijuana Occupation Assessmet: service: No Current occupational status: unemployed Home Medications and Allergies Home Medications Medication Instructions Recorded Confirmed Type aspirin 81 mg tablet,delayed 81 mg PO BEDTIME 12/12/20 01/05/21 History release atorvastatin 20 mg tablet 20 mg PO DAILY 12/12/20 01/05/21 History blood-glucose meter #1 ea 12/12/20 01/05/21 History lancets 28 gauge #100 ea 12/12/20 01/05/21 History metoprolol succinate 50 mg 50 mg PO DAILY 12/12/20 01/05/21 History tablet,extended release 24 hr multivitamin 1 tab PO DAILY 12/12/20 01/05/21 History pen needle, diabetic 31 gauge x #50 ea 12/12/20 01/05/21 History 3/16 Allergies Allergy/AdvReac Type Severity Reaction Status Date / Time No Known Allergies Allergy Verified 12/12/20 10:05 Physical Exam Vital signs: Vital Signs Temp 97.5 F 01/05/21 11:10 Pulse 66 01/05/21 11:10 Resp 14 01/05/21 11:10 BP 114/73 01/05/21 11:10 Pulse Ox 100 01/05/21 11:10 Intake & Output 01/04/21 01/05/21 01/05/21 18:59 06:59 18:59 Other: Weight 60.5 kg Weight in Grams 08829 Weight 60.5 kg - Constitutional Present: no acute distress, thin - Routine HEENT Exam Head: Present: atraumatic, normal inspection Eye: Present: normal appearance - Routine Neck Exam Present: supple. Absent: lymphadenopathy - Routine Respiratory Exam Present: CTAB - Routine Cardiovascular Exam Cardiovascular: Present: S1, S2 - Routine Abdominal Exam Present: soft. Absent: mass - Routine Extremities Exam Absent: calf tenderness, pedal edema - Routine Skin Exam Present: intact. Absent: cyanosis - Routine Neurological Exam Present: alert, oriented X3 Hem/Onc Consult Result - Labs Labs: Laboratory Tests 12/12/20 12/13/20 01/01/21 14:37 04:34 12:50 WBC 4.2 L RBC 2.70 L Hgb 8.6 L Hct 26.9 L MCV 99.6 H RDW 14.0 Plt Count 195 Sodium Potassium BUN Creatinine Iron 47 TIBC 185 L % Saturation 25 Ferritin 632 H Total Bilirubin AST ALT Alkaline Phosphatase Vitamin B12 Folate 13.8 01/01/21 01/01/21 12:50 12:50 WBC RBC Hgb Hct MCV RDW Plt Count Sodium 133 L Potassium 4.6 BUN 12 Creatinine 1.46 H Iron TIBC % Saturation Ferritin Total Bilirubin 0.2 AST 40 H ALT 24 Alkaline Phosphatase 113 D Vitamin B12 632 Folate Assessment and Plan (1) Anemia Status: Acute 1. This is a 65-year-old male with multiple medical problems presenting with macrocytic anemia. He has had acute deterioration of chronic anemia probably related to recent osteomyelitis. He has anemia of chronic disease based on his iron indices. He has normal vitamin B12 and folic acid levels. He denies drinking alcohol on a daily basis which can also cause macrocytic anemia. He has chronic kidney disease and poorly controlled diabetes at baseline. He got his 1st blood transfusion in November 2020. There is no evidence of hemolysis. Further blood work with serum protein electrophoresis, immunofixation, retic count to be submitted. Other causes of anemia such as underlying malignancy, bone marrow disorders are possibilities that will be investigated further. His appetite is slowly improving and he is beginning to gain the weight back. He was advised to continue to abstain from alcohol. Follow-up in 3 weeks.
--- NOTE | 2021-01-05 14:56 | MHC.HEMONCMA ---
Patient came in for a consult. States he is doing well. Clinical summary was reviewed and updated. Patient had labs and will return in 3 weeks for a follow up.
[2021-01-28 10:30] VITALS: BP 109/61; PULSE 53; RESP 14; TEMP 36; O2SAT 100; BMI 17.8
--- NOTE | 2021-01-28 10:47 | P.PNHO_ITS ---
Medical Summary - Medical Summary Date of Service: 01/28/21 Chief complaint: Follow-up Medical Summary: Diagnosis: Chronic macrocytic anemia multiple medical problems but chiefly poorly controlled diabetes with recently diagnosed left foot osteomyelitis was sent for evaluation of anemia. His previous care was at [facility]. He says he we used to take oral iron supplementation on and off in the past. He received blood transfusion in November of 2020 for hemoglobin of 7.5 gram/dL when he was admitted for osteomyelitis. He had a colonoscopy a few years ago at [facility] and was told of a few polyps. Interval History Interval history: patient is here in follow-up. He is doing better in terms of infection/ osteomyelitis. However, his sugars are very poorly controlled. They have been consistently above 400 and he is losing weight. He does not have an appointment with his PCP today May. He is to see an presser automatic previously at [facility] but he did not follow-up in several years. He also used to see a severity of illness coordinator at [facility] and he has not followed up. He denies any fever or chills. He denies chest pain or shortness of breath. Review of Systems - Constitutional Reports as per HPI, Reports no additional constitutional complaints, Reports malaise, Reports weight loss PMFSH Medical History: Medical History (Last Reviewed 01/28/21 @ 10:45 by Dee Alicia RN) Anemia Bunion CAD (coronary artery disease) Cataracts, bilateral Chronic diabetic ulcer of right foot determined by examination Diabetes Hearing difficulty Heart attack High cholesterol Hypertension Macrocytic anemia Neuropathy Osteomyelitis Osteomyelitis of left foot Family History: Family History (Last Reviewed 01/28/21 @ 10:45 by Dee Alicia RN) Sister HTN (hypertension) Sister HTN (hypertension) Father Heart disease Heart attack Mother Kidney failure Surgical History: Surgical History (Last Reviewed 01/28/21 @ 10:45 by Dee Alicia RN) H/O heart bypass surgery H/O rotator cuff surgery History of bunionectomy of right great toe Social History: Social History (Last Reviewed 01/28/21 @ 10:47 by Dee Alicia RN) Living Situation History: Household Members: Significant Other Housing: Condominium Are you a primary career guidance counselor to a significant other at home: No Do you presently have visiting nurse or other home services: No Alcohol History: Alcohol intake: current Alcohol History Details: Alcohol intake frequency: holiday/special occasion Alcohol type: beer Tobacco History: Patient Tobacco Use Status: Former Tobacco user Cigarette Packs Per Day: 1 Years Smoked: 15 Smoke Quit Date: 2005 Substance Use History: Use of substances other than those prescribed or required for medical reasons : No Substance Use Type: Marijuana Occupation Assessmet: service: No Current occupational status: unemployed Oncology Screenings - ECOG Performance Status ECOG Performance Status: 2 Home Medications and Allergies Home Medications Medication Instructions Recorded Confirmed Type aspirin 81 mg tablet,delayed 81 mg PO BEDTIME 12/12/20 01/24/21 History release atorvastatin 20 mg tablet 20 mg PO DAILY 12/12/20 01/24/21 History blood-glucose meter #1 ea 12/12/20 01/24/21 History lancets 28 gauge #100 ea 12/12/20 01/24/21 History metoprolol succinate 50 mg 50 mg PO DAILY 12/12/20 01/24/21 History tablet,extended release 24 hr multivitamin 1 tab PO DAILY 12/12/20 01/24/21 History pen needle, diabetic 31 gauge x #50 ea 12/12/20 01/24/21 History 3/16 Allergies Allergy/AdvReac Type Severity Reaction Status Date / Time codeine Allergy Unknown Verified 01/23/21 13:10 Exam Vital signs: Vital Signs Temp 96.8 F 01/28/21 10:30 Pulse 53 01/28/21 10:30 Resp 14 01/28/21 10:30 BP 109/61 01/28/21 10:30 Pulse Ox 100 01/28/21 10:30 Intake & Output 01/27/21 01/28/21 01/28/21 18:59 06:59 18:59 Other: Weight 57.9 kg [place] Weight in Grams 48772 Weight 57.9 kg Body Mass Index 17.8 - Constitutional Present: no acute distress, thin - Routine HEENT Exam Head: Present: atraumatic, normal inspection - Routine Respiratory Exam Present: CTAB - Routine Cardiovascular Exam Cardiovascular: Present: S1, S2 - Routine Abdominal Exam Present: soft. Absent: mass - Routine Extremities Exam Absent: calf tenderness, pedal edema - Routine Skin Exam Present: intact. Absent: cyanosis - Routine Neurological Exam Present: alert, oriented X3 Data - Labs CBC & Chem 7: 01/28/21 11:21 Progress Note: A/P (1) Anemia Status: Chronic Assessment and plan: 1. This is a 65-year-old male with multiple medical problems presenting with macrocytic anemia. He has had acute deterioration of chronic anemia related to recent osteomyelitis. He has anemia of chronic disease based on his iron indices. He has chronic kidney disease and poorly controlled diabetes. He got his 1st blood transfusion in November 2020. There is no evidence of hemolysis. Further blood work with serum protein electrophoresis, immunofixation has been submitted. Blood work today shows significant improvement in his anemia. I have asked him to follow up with his presser automatic as well as severity of illness coordinator. - Time Spent With Patient 25 - 35 minutes
[2021-01-28 11:38] LABS: MANUAL DIFF FLAG NO
[2021-01-28 11:52] LABS: Basophils Percent Auto 0.4 % (0-2); Eosinophils Absolute Auto 0.1 X10*3/uL (0.0-0.4); Eosinophils Percent Auto 1.2 % (0-4); Hematocrit 35.8 % (42-52); Hemoglobin 11.9 g/dl (14.0-18.0); Imm Gran Abs Auto 0.01 X10*3/uL (0.00-0.03); Imm Gran Pct Auto 0.2 % (0.0-0.4); Immature Retic Fraction 3.4 % (2.3-13.4); Lymphocytes Absolute Auto 1.3 X10*3/uL (1.2-4.9); Lymphocytes Percent Auto 26.1 % (20-40); Mean Corpuscular HGB Conc 33.2 g/dl (31.0-36.0); Mean Corpuscular Hemoglobin 30.7 pg (27.0-33.0); Mean Corpuscular Volume 92.3 fL (80-98); Mean Platelet Volume 11.2 fL (9.4-12.4); Monocytes Absolute Auto 0.3 X10*3/uL (0.1-1.2); Monocytes Percent Auto 5.8 % (2-11); Neutrophils Absolute Auto 3.2 X10*3/uL (2.0-8.3); Neutrophils Percent Auto 66.3 % (45-73); Platelet Count 159 X10*3/uL (160-400); Red Blood Count 3.88 X10*6/uL (4.60-5.80); Red Cell Distribution Width 13.3 % (11.0-16.0); Retic HGB Equivalent 36.6 pg (30.0-35.0); Reticulocyte Percent 0.6 % (0.5-1.8); Reticulocytes Absolute 0.022 X10*6/uL (0.026-0.095); White Blood Count 4.9 X10*3/uL (4.8-10.8)
[2021-01-28 12:20] LABS: Lactate Dehydrogenase 203 U/L (118-273)
--- NOTE | 2021-01-28 16:02 | MHC.HEMONCMA ---
Patient came in for a follow up today, states that he is doing well his PICC line was removed so he is happy about that. Clinical summary was reviewed and updated. Patient had labs and will return in 5 months.
[2021-02-03 15:56] LABS: Prot Elec - Albumin 3.5 g/dL (3.8-4.8); Prot Elec - Alpha1 0.3 g/dL (0.2-0.3); Prot Elec - Alpha2 0.4 g/dL (0.5-0.9); Prot Elec - Beta 1 0.4 g/dL (0.4-0.6); Prot Elec - Beta 2 0.5 g/dL (0.2-0.5); Prot Elec - Gamma 1.7 g/dL (0.8-1.7); Prot Elec - Total Protein 6.8 g/dL (6.1-8.1)
[2021-02-04 15:46] LABS: IgA 675 mg/dL (70-320); IgG 1869 mg/dL (600-1540); IgM 187 mg/dL (50-300)
== END | disposition home or self-care (01) ==
LOC: HO.ONC 01-05 10:44
PROVIDERS: PCP Internal Medicine; Referring Provider Internal Medicine; Visit Provider Internal Medicine
DX: D53.9 Nutritional anemia, unspecified (principal); E11.69 Type 2 diabetes mellitus with other specified complication; M86.9 Osteomyelitis, unspecified; E11.65 Type 2 diabetes mellitus with hyperglycemia; E11.22 Type 2 diabetes mellitus with diabetic chronic kidney disease; N18.9 Chronic kidney disease, unspecified; D63.8 Anemia in other chronic diseases classified elsewhere
CPT/HCPCS: 36415; 82784; 83615; 84155; 84165; 85025; 85045; 86334; 99204; 99214

== ENCOUNTER 2024-04-06 08:29 | Outpatient (AMB) | payer MEDICARE, OTHER, SELFPAY ==
[2024-04-06 08:31] VITALS: BP 132/78; PULSE 66; O2SAT 98; BMI 21.6
--- NOTE | 2024-04-06 08:31 | A.OFFPC_ITS ---
Vital Signs 04/06/24 08:31 Height 5 ft 11 in Weight 155 lb BMI 21.6 BP 132/78 Blood Pressure Location Lt brachial Position Sitting Pulse 66 Pulse Source Pulse Oximeter Pulse Oximetry (%) 98 Oxygen Delivery Method Room Air Intake Visit Reasons: Pre-op visit Allergies codeine Allergy (Unknown, Verified 04/06/24 08:31) Unknown Medication List - Last Reconciled 04/06/24 by Rufino Rajput MD aspirin 81 mg PO BEDTIME atorvastatin 20 mg PO DAILY 90 days blood-glucose meter As directed insulin aspart U-100 (Novolog FlexPen U-100 Insulin aspart) 6 - 9 sliding scale doses subcut BID insulin detemir U-100 (Levemir FlexPen) 17 units subcut DAILY lancets As directed setvwg-vcbhumop-ttnvull 24,000-76,000 -120,000 unit (Creon) 1 cap PO TID 90 days multivitamin 1 tab PO DAILY pen needle, diabetic B.i.d. pregabalin 150 mg PO TID spironolactone 25 mg PO DAILY thiamine mononitrate (vit B1) 100 mg PO DAILY 90 days Tobacco use date assessed: 04/06/24 Fall risk assessment: No Falls in past year Last assessed Fall Risk: 04/06/24 Dental Screening Dental Screen Date: 04/06/24 Did you have a dental visit in the last 12 months?: Yes Did you have a dental problem in the last 6 months where you did not have access to dental care?: No Was dental information given to patient?: Patient has dentist HPI Pre-op visit HPI Details Patient is 68-year-old gentleman came in today for preop clearance Reviewing his chart I see that he was at [facility] 02/03/2024, and was seen by Orthopedic when he needed removal of right foot hardware , he developed acute osteomyelitis of right ankle And was treated, he recently had visit with Infectious Disease and is doing well Patient have type 2 diabetes mellitus with neuropathy Hemoglobin A1c was 7.4 in January, new set of lab order placed He is taking Lantus 17 units and NovoLog 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 Galeana, last visit was in January of this year Patient have history of CABG x3 in 2014 Echocardiogram April of 2023 showed ejection fraction of 55-60% mild enlarged right ventricle with reduced right ventricular global systolic function. Mild aortic insufficiency, mild mitral regurgitation Patient is on baby aspirin GERD stable Pancreatic insufficiency chronic managed with pancreatic enzymes History of alcoholic cirrhosis diagnosed May of 2021 when he was hospitalized secondary to acute pancreatitis and ascites and needed paracentesis. Patient have a history of heavy alcohol consumption but has stopped since 2020 Currently he is not seeing any grape pruner for that His LFTs are within normal limit CT abdomen done May of 2021 and January of 2022 showed normal liver Chronic kidney disease 3B GFR in January was 34 with creatinine of 2.1 Patient is currently seeing school bus dispatcher Dr. 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 Orion Bender Patient had EKG done today in the office which does not show any acute findings, 60 beats per minute nonspecific ST and T-wave abnormality Patient is stable for surgery No shortness a breath no chest pains no nausea no vomiting no abdominal pain no signs of infection List of providers patient is seeing are Gastroenterology : [facility] for liver cirrhosis Dr vidal, no longer seeing Endocrinology: [facility] for diabetes management. Dr Duarte Nephrology: Dr Les Dunlap/Dr. Celaya Cardio : Dr Galeana Urology : Dr Mora Pain managment : [facility] Radha Ophthalmology : Dr. Ching Podiatry: Dr. Luis Urology: Dr. Quezada Addendum will be created after the lab report if needed [facility] Medical History Ascites Chronic kidney disease GERD (gastroesophageal reflux disease) Macrocytic anemia Chronic diabetic ulcer of right foot determined by examination Anemia Osteomyelitis Hearing difficulty Neuropathy Cataracts, bilateral Bunion Heart attack CAD (coronary artery disease) High cholesterol Diabetes Hypertension Surgical History History of esophagogastroduodenoscopy (EGD) H/O colonoscopy Hx of heart artery stent Hx of cystoscopy Hx of endoscopy History of bunionectomy of right great toe H/O rotator cuff surgery H/O heart bypass surgery Family History Sister HTN (hypertension) Sister HTN (hypertension) Father Heart disease Heart attack Mother Kidney failure Social History Household Members: Significant Other Housing: [facility] Are you a primary care program director to a significant other at home: No Do you presently have visiting nurse or other home services: No Alcohol intake: current Alcohol intake frequency: former alcohol drinker Alcohol type: beer Patient Tobacco Use Status: Former Tobacco user Tobacco use type: Cigarette Cigarette Packs Per Day: 1 Cigarettes Per Day: 20 Years Smoked: 15 e-Cigarette/Vaping Use: Never Used Substance Use Type: Marijuana service: No Current occupational status: unemployed Cognitive needs: No Hearing needs: No Vision needs: No Questionnaire PHQ-9 Over the last 2 weeks, how often have you been bothered by any of the following problems? 1. Little interest or pleasure in doing things: not at all 2. Feeling down, depressed, or hopeless: several days 3. Trouble falling or staying asleep, or sleeping too much: several days 4. Feeling tired or having little energy: not at all 5. Poor appetite or overeating: not at all 6. Feeling bad about yourself - or that you are a failure or have let yourself or your family down: not at all 7. Trouble concentrating on things, such as reading the newspaper or watching television: not at all 8. Moving or speaking so slowly that other people could have noticed. Or the opposite - being so fidgety or restless that you have been moving around a lot more than usual: not at all 9. Thoughts that you would be better off or of hurting yourself in some way: not at all Total score: 2 Depression Screening Interpretation: Negative Depression Screening Done: Yes 07351 - PHQ-9 Billing: Yes Source: Developed by Drs. Ted Hong, Mera Davenport, Jayro Elizabeth and colleagues, with an educational steffany from [employer]. Thrive Questionnaire Date Thrive assessed: 04/06/24 I am a: Patient What is your living situation today?: I have a steady place to live Within the past 12 months, did the food you bought not last and you didn't have the money to get more?: Never true Within the past 12 months, did you worry whether your food would run out before you got money to buy more?: Never true Do you have trouble paying for medicines?: No Do you have trouble getting transportation to medical appointments?: No Do you have trouble paying your heating and electricity bill?: No Do you have trouble taking care of your child, family member or friend?: No Do you have trouble with day-to-day activities such as bathing, preparing meals, shopping, managing finances, etc.?: No Are you currently unemployed and looking for a job?: No Are you interested in more education?: No Please select the resources that you would like help with: None Currently or been in a relationship where the following occur: No concerns reported THRIVE Score: 0 AUDIT C Alcohol Use Questionnaire (AUDIT-C) 1. How often do you have a drink containing alcohol?: Never 3. How often do you have six or more drinks on one occasion?: Never Total Score: 0 Score Reviewed/Action Taken: Yes STANISLAV-7 AMB Questionnaire STANISLAV-7 Date STANISLAV - 7 assessed: 04/06/24 Feeling nervous, anxious, or on edge: 0 = Not at all Not being able to stop or control worryin = Not at all Worrying too much about different things: 0 = Not at all Trouble relaxin = Not at all Being so restless that it is hard to sit still: 0 = Not at all Becoming easily annoyed or irritable: 0 = Not at all Feeling afraid as if something awful might happen: 0 = Not at all Total STANISLAV-7 score (0-4 normal; 5-9 mild; 10-14 moderate; 15-21 severe): 0 Source: Developed by Drs. Ted Hong, Mera Davenport, Jayro Elizabeth and colleagues, with an educational steffany from [employer]. STANISLAV-7 Assessment Billing STANISLAV-7 Assessment Tool: STANISLAV-7 Assessment 86045 Review of Systems Const Denies chills and Denies fever(s) ENT Denies epistaxis and Denies nasal discharge Card Denies chest pain Resp Denies chest congestion, Denies cough and Denies hemoptysis GI Denies diarrhea and Denies nausea Skin/Breast Denies rash Neuro Reports no additional complaints Psych Reports no additional complaints Endo Reports no additional complaints Physical exam (Primary Care) Vital Signs: Last Vital Signs Pulse 66 04/06/24 08:31 BP 132/78 04/06/24 08:31 Pulse Ox 98 04/06/24 08:31 Oxygen Delivery Method Room Air 04/06/24 08:31 BMI result Body Mass Index 21.6 Tobacco/Smoking Status: Tobacco use Status Tobacco use date assessed 04/06/24 04/06/24 08:32 Patient Tobacco Use Status Former Tobacco user 04/06/24 08:32 Tobacco use type Cigarette 04/06/24 08:32 e-Cigarette/Vaping Use Never Used 04/06/24 08:32 PHQ-9: PHQ-9 Score PHQ-9: Total score 2 04/06/24 08:50 Depression Screening Interpretation: Negative Thrive Assessment: Date of Thrive Assessment Date Thrive assessed 04/06/24 04/06/24 08:32 Currently or been in a relationship where the following occur: No concerns reported Const General: cooperative, comfortable and no acute distress Orientation/consciousness: patient oriented x3 HENMT Head: Yes normocephalic Eyes General: appearance normal, both eyes and all related structures Neck Neck: Yes supple Resp Effort & Inspection: normal respiratory effort, no cough and no stridor Cardio Rhythm: regular rhythm Heart sounds: S1 normal heart sound present and S2 normal heart sound present Skin General skin exam: turgor normal Neuro General: patient oriented x3, tone normal and moves all extremities Extrem Right lower extremity: no edema Left lower extremity: no edema Results Reviewed Results Reviewed: Laboratory Tests 08/17/21 11/04/23 04/06/24 12:20 14:50 09:18 WBC 5.5 RBC 3.80 L Hgb 12.0 L Hct 35.5 L Plt Count 151 L 173 100 L D Sodium 140 Potassium 5.1 Chloride 110 H Carbon Dioxide 21 L Anion Gap 14 BUN 29 H 37 H Creatinine 2.21 H 2.41 H Random Glucose 185 H Hemoglobin A1c % 5.7 Total Bilirubin 0.3 AST 28 ALT 22 Albumin 4.1 TSH 2.00 Assessment and Plan Assessment & Plan (1) Pre-op evaluation: Code(s): Z01.818 - Encounter for other preprocedural examination (2) Stage III chronic kidney disease: Code(s): N18.30 - Chronic kidney disease, stage 3 unspecified Qualifiers: Chronic kidney disease stage 3 subtype: stage 3a (GFR 45-59) Qualified Code(s): N18.31 - Chronic kidney disease, stage 3a (3) Chronic pain syndrome: Code(s): G89.4 - Chronic pain syndrome (4) Painful diabetic neuropathy: Code(s): E11.40 - Type 2 diabetes mellitus with diabetic neuropathy, unspecified (5) Normocytic anemia: Code(s): D64.9 - Anemia, unspecified (6) Major depression, recurrent: Code(s): F33.9 - Major depressive disorder, recurrent, unspecified Qualifiers: Active/Remission status: in full remission Qualified Code(s): F33.42 - Major depressive disorder, recurrent, in full remission (7) Benign prostatic hyperplasia: Code(s): N40.0 - Benign prostatic hyperplasia without lower urinary tract symptoms Qualifiers: Lower urinary tract symptom presence: symptoms absent Qualified Code(s): N40.0 - Benign prostatic hyperplasia without lower urinary tract symptoms (8) Lipid disorder: Code(s): E78.9 - Disorder of lipoprotein metabolism, unspecified (9) Coronary artery disease: Code(s): I25.10 - Atherosclerotic heart disease of [place] coronary artery without angina pectoris Qualifiers: Associated angina: without angina Coronary Disease-Associated Artery/Lesion type: [place] artery [place] vs. transplanted heart: [place] heart Qualified Code(s): I25.10 - Atherosclerotic heart disease of [place] coronary artery without angina pectoris (10) Insulin dependent diabetes mellitus with complications: (11) terminal makeup operator (current) use of insulin: Code(s): Z79.4 - [facility] (current) use of insulin Plan Patient is 68-year-old gentleman came in today for preop clearance Reviewing his chart I see that he was at [facility] 02/03/2024, and was seen by Orthopedic when he needed removal of right foot hardware , he developed acute osteomyelitis of right ankle And was treated, he recently had visit with Infectious Disease and is doing well Patient have type 2 diabetes mellitus with neuropathy Hemoglobin A1c was 7.4 in January, new set of lab order placed He is taking Lantus 17 units and NovoLog 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 Galeana, last visit was in January of this year Patient have history of CABG x3 in 2014 Echocardiogram April of 2023 showed ejection fraction of 55-60% mild enlarged right ventricle with reduced right ventricular global systolic function. Mild aortic insufficiency, mild mitral regurgitation Patient is on baby aspirin GERD stable Pancreatic insufficiency chronic managed with pancreatic enzymes History of alcoholic cirrhosis diagnosed May of 2021 when he was hospitalized secondary to acute pancreatitis and ascites and needed paracentesis. Patient have a history of heavy alcohol consumption but has stopped since 2020 Currently he is not seeing any grape pruner for that His LFTs are within normal limit CT abdomen done May of 2021 and January of 2022 showed normal liver Chronic kidney disease 3B GFR in January was 34 with creatinine of 2.1 Patient is currently seeing school bus dispatcher Dr. 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 Orion Bender Patient had EKG done today in the office which does not show any acute findings, 60 beats per minute nonspecific ST and T-wave abnormality Patient is stable for surgery No shortness a breath no chest pains no nausea no vomiting no abdominal pain no signs of infection List of providers patient is seeing are Gastroenterology : [facility] for liver cirrhosis Dr vidal, no longer seeing Endocrinology: [facility] for diabetes management. Dr Duarte Nephrology: Dr Les Dunlap/Dr. Celaya Cardio : Dr Galeana Urology : Dr Mora Pain managment : [facility] Radha Ophthalmology : Dr. Ching Podiatry: Dr. Luis Urology: Dr. Quezada Addendum will be created after the lab report if needed Orders: Orders Complete Blood Count Auto Diff Today D64.9 - Anemia, unspecified, E78.9 - Disorder of lipoprotein metabolism, unspecified, F33.42 - Major depressive disorder, recurrent, in full remission, I25.10 - Atherosclerotic heart disease of [place] coronary artery without angina pectoris, N18.31 - Chronic kidney disease, stage 3a, N40.0 - Benign prostatic hyperplasia without lower urinary tract symptoms, Z01.818 - Encounter for other preprocedural examination, Z79.4 - terminal makeup operator (current) use of insulin Comprehensive Met. Panel Today D64.9 - Anemia, unspecified, E78.9 - Disorder of lipoprotein metabolism, unspecified, F33.42 - Major depressive disorder, recurre nt, in full remission, I25.10 - Atherosclerotic heart disease of [place] coronary artery without angina pectoris, N18.31 - Chronic kidney disease, stage 3a, N40.0 - Benign prostatic hyperplasia without lower urinary tract symptoms, Z01.818 - Encounter for other preprocedural examination, Z79.4 - terminal makeup operator (current) use of insulin Hemoglobin A1c Today D64.9 - Anemia, unspecified, E78.9 - Disorder of lipoprotein metabolism, unspecified, F33.42 - Major depressive disorder, recurrent, in full remission, I25.10 - Atherosclerotic heart disease of [place] coronary artery without angina pectoris, N18.31 - Chronic kidney disease, stage 3a, N40.0 - Benign prostatic hyperplasia without lower urinary tract symptoms, Z01.818 - Encounter for other preprocedural examination, Z79.4 - terminal makeup operator (current) use of insulin TSH reflex Free T4 Today D64.9 - Anemia, unspecified, E78.9 - Disorder of lipoprotein metabolism, unspecified, F33.42 - Major depressive disorder, recurrent, in full remission, I25.10 - Atherosclerotic heart disease of [place] coronary artery without angina pectoris, N18.31 - Chronic kidney disease, stage 3a, N40.0 - Benign prostatic hyperplasia without lower urinary tract symptoms, Z01.818 - Encounter for other preprocedural examination, Z79.4 - terminal makeup operator (current) use of insulin LDL Cholesterol Direct Today D64.9 - Anemia, unspecified, E78.9 - Disorder of lipoprotein metabolism, unspecified, F33.42 - Major depressive disorder, recurrent, in full remission, I25.10 - Atherosclerotic heart disease of [place] coronary artery without angina pectoris, N18.31 - Chronic kidney disease, stage 3a, N40.0 - Benign prostatic hyperplasia without lower urinary tract symptoms, Z01.818 - Encounter for other preprocedural examination, Z79.4 - [facility] (current) use of insulin Coding Level of Care Code Est Pt Level 5 (38801) Diagnoses Pre-op evaluation Z01.818 Stage 3a chronic kidney disease N18.31 Chronic kidney disease stage 3 subtype: stage 3a (GFR 45-59) Chronic pain syndrome G89.4 Painful diabetic neuropathy E11.40 Normocytic anemia D64.9 Recurrent major depressive disorder, in full remission F33.42 Active/Remission status: in full remission Benign prostatic hyperplasia without lower urinary tract symptoms N40.0 Lower urinary tract symptom presence: symptoms absent Lipid disorder E78.9 Coronary artery disease involving [place] coronary artery of [place] heart without angina pectoris I25.10 Associated angina: without angina Coronary Disease-Associated Artery/Lesion type: [place] artery [place] vs. transplanted heart: [place] heart Insulin dependent diabetes mellitus with complications terminal makeup operator (current) use of insulin Z79.4 Additional Codes STANISLAV-7 Assessment Billing - STANISLAV-7 Assessment Tool: STANISLAV-7 Assessment [id number] ([id number])
== END 2024-04-06 09:20 | disposition home or self-care (01) ==
PROVIDERS: PCP Internal Medicine; Visit Provider Internal Medicine
DX: Z01.818 Encounter for other preprocedural examination (principal); N18.31 Chronic kidney disease, stage 3a; E11.40 Type 2 diabetes mellitus with diabetic neuropathy, unspecified; F33.42 Major depressive disorder, recurrent, in full remission; Z79.4 Long term (current) use of insulin; I25.10 Atherosclerotic heart disease of native coronary artery without angina pectoris; G89.4 Chronic pain syndrome; D64.9 Anemia, unspecified; N40.0 Benign prostatic hyperplasia without lower urinary tract symptoms; E78.9 Disorder of lipoprotein metabolism, unspecified
CPT/HCPCS: 93000; 99215

== ENCOUNTER 2024-04-06 09:04 | Outpatient (REF) | payer MEDICARE, OTHER, SELFPAY ==
[2024-04-06 10:25] LABS: MANUAL DIFF FLAG NO
[2024-04-06 10:42] LABS: Basophils Percent Auto 0.7 % (0-2); Eosinophils Absolute Auto 0.2 X10*3/uL (0.0-0.4); Eosinophils Percent Auto 2.7 % (0-4); Estimated Average Glucose 117 mg/dL; Hematocrit 35.5 % (42.0-52.0); Hemoglobin A1C 117.1313 umol/L; Hemoglobin A1c % 5.7 % (<6.0); Imm Gran Abs Auto 0.01 X10*3/uL (0.00-0.03); Imm Gran Pct Auto 0.2 % (0.0-0.4); Lymphocytes Absolute Auto 1.3 X10*3/uL (1.2-4.9); Lymphocytes Percent Auto 23.8 % (20-40); Mean Corpuscular HGB Conc 33.8 g/dl (31.0-36.0); Mean Corpuscular Hemoglobin 31.6 pg (27.0-33.0); Mean Corpuscular Volume 93.4 fL (80.0-98.0); Mean Platelet Volume 12.8 fL (9.4-12.4); Monocytes Absolute Auto 0.4 X10*3/uL (0.1-1.2); Monocytes Percent Auto 6.7 % (2-11); Neutrophils Absolute Auto 3.6 x10*3/uL (2.0-8.3); Neutrophils Percent Auto 65.9 % (45-73); White Blood Count 5.5 X10*3/uL (4.8-10.8)
[2024-04-06 10:44] LABS: Platelet Count 100 X10*3/uL (160-400)
[2024-04-06 10:55] LABS: Alanine Aminotransferase 22 U/L (0-40); Albumin Level 4.1 g/dL (3.5-5.0); Alkaline Phosphatase 72 U/L (39-117); Anion Gap 14 (12-20); Aspartate Amino Transferase 28 U/L (5-37); Bilirubin Total 0.3 mg/dL (0.0-1.0); Blood Urea Nitrogen 37 mg/dL (9-16); Calcium 9.2 mg/dL (8.4-10.2); Carbon Dioxide 21 mmol/L (22-29); Chloride 110 mmol/L (96-108); Estimated Glomerular Filt Rate 27; Glucose Random 185 mg/dL (60-115); Potassium 5.1 mmol/L (3.3-5.1); Sodium 140 mmol/L (135-145); Total Protein 7.2 g/dL (6.5-8.0)
[2024-04-09 16:19] LABS: LDL Cholesterol Direct 39 mg/dL (<100)
== END 2024-04-06 09:05 | disposition home or self-care (01) ==
LOC: HO.HMGCLDS 09:04
PROVIDERS: PCP Internal Medicine; Visit Provider Internal Medicine
DX: Z01.818 Encounter for other preprocedural examination (principal); N18.31 Chronic kidney disease, stage 3a; N40.0 Benign prostatic hyperplasia without lower urinary tract symptoms; F33.42 Major depressive disorder, recurrent, in full remission; D64.9 Anemia, unspecified; E78.9 Disorder of lipoprotein metabolism, unspecified; I25.10 Atherosclerotic heart disease of native coronary artery without angina pectoris; Z79.4 Long term (current) use of insulin
CPT/HCPCS: 36415; 80053; 83036; 83721; 84443; 85025

== ENCOUNTER 2024-05-31 08:58 | Outpatient (AMB) | payer MEDICARE, OTHER, SELFPAY ==
--- NOTE | 2024-05-31 09:01 | MHC.OFFVIS ---
Vital Signs 05/31/24 09:13 Height 5 ft 11 in Weight 156 lb BMI 21.8 BP 149/76 H Blood Pressure Location Lt brachial Position Sitting Pulse 64 Intake Visit Reasons: 6 month follow up Intake Note: Patient follow up for acid reflex Patient cc: diarrhea due antibiotics that he was taking. Denies any other GI issues. Clearing Hand Required: No Accompanied by: Self / Same As Patient Allergies codeine Allergy (Unknown, Verified 09/13/24 08:39) Unknown Medication List - Last Reconciled 05/31/24 by Elisha Estevez MD aspirin 81 mg PO BEDTIME atorvastatin 20 mg PO DAILY 90 days blood-glucose meter As directed insulin aspart U-100 (Novolog FlexPen U-100 Insulin aspart) 6 - 9 sliding scale doses subcut BID insulin detemir U-100 (Levemir FlexPen) 17 units subcut DAILY lancets As directed onvkss-vnyclubz-nwhwyrl 24,000-76,000 -120,000 unit (Creon) 1 cap PO TID 90 days multivitamin 1 tab PO DAILY pen needle, diabetic B.i.d. pregabalin 150 mg PO TID spironolactone 25 mg PO DAILY thiamine mononitrate (vit B1) 100 mg PO DAILY 90 days HPI HPI 6 month follow up: Details: GI clinic visit for this 68 YM? with CHF, CAD, IDDM, htn, kidney stones, CKD, seen for FU of liver disease, chronic calcific pancreatitis and colon cancer screening. Followed by Dr Centeno at [facility].? Saw another GI physician in 2019 at [facility] who has retired also. Renal:? Dr Chan Pt was hospitalized at [facility] 05/29/21 to 06/10/21 with cirrhosis, ascites, SBP,? sepsis, anemia, nontraumatic psoas hematoma, Malnutrition, anasarca, pancreatic insufficiency, thrombocytopenia, coagulopathy, alcohol use disorder, coronary artery disease and confusion associated with infection.? Hospital course was complicated by type 2 hepatorenal disease which was treated with midodrine, octreotide, albumin infusions Creatinine improved to 1.4 and octreotide was discontinued. Discharge summary from hospitalization was reviewed in scanned into the patient's medical record. TODAY'S VISIT: Patient cc: diarrhea due antibiotics that he was taking. Denies any other GI issues. Had surgery in January on his right foot and Mar on the left foot. Treated with antibiotics prior to surgery on the left foot. Antibiotics were stopped 2 weeks ago and diarrhea is getting better. Has an accidents when he wakes up in the am. Bms are associated with urgency - 3 - 5 loose non-bloody BMs a day Pt states he had lab and stool tests at [facility] Swallowing is good. Noted a slight sore throat for a few days after EGD Denies any change in dysphagia Biopsy results reviewed PAST VISIT: Patient cc: swallowing problems, and between diarrhea and constipation. Patient is been seen in the [place] wound center due a infected blister on his legs. Accompanied by his GF Has wounds in the feet. Had a vitrectomy recently Appetite is good and he has been gaining weight Has diarrhea alternating with constipation Intermittent dysphagia associated with intake of solids - with every meal for the past 6 months, Denies heartburn Has a good appetite and wt gain of 40 lbs over the past year. Continues to have a abd cramps with a lot of gas and more bouts of diarrhea. Unable to go for a few days and then has diarrhea. Takes peptobismol when he has diarrhea. Can be on the toilet for 1/2 an hour. Has oatmeal for breakfast, fruit or muffin for lunch. Had EUS at [facility] - report was requested Colonoscopy was attempted and was unsuccessful due to poor prep. Pt reports bouts of constipation and diarrhea - mostly diarrhea. Denies black stool or rectal bleeding Denies abdominal pain and appetite is better Pregabilin is helping with the appetite. Notes mild lower extremity edema Takes Novolin 17 units in the am and uses regular insulin on a sliding scale the rest of the day. No ETOH in 15 to 16 months Pt was diagnosed with alcoholic cirrhosis a few yrs ago. DM diagnosed 5-6 yrs ago. Complains of worsening upper abdominal pain x 1 month. Pain is constant, 8/10 and radiates to the back. Denies change in pain with eating. Denies nausea, vomiting, dairrhea or constipation.. Takes Lactulose two times a day and has 2 -3 soft BMs daily. Stools are very light Appetite has been good and he is trying to eat three times a day or takes a protein drink. Started loosing wt for the past 6 months Baseline wt is 145 lbs. Weighed 126 lbs on discharge from Rehab and now weighs 110 lbs. Feels he is getting enough calories. Patient denies symptoms of heartburn, dysphagia.? Denies black stools or rectal bleeding. Patient denies loud snoring or sleep apnea - has difficulty sleeping due to neuropathy Denies problems with anesthesia in the past. Denies being on chronic anticoagulation. Quit drinking 3 months ago Denies tobacco use Patient denies known family history of colon polyps, colon cancer or other GI malignancies. 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 Diverticulosis was detected.? Repeat colonoscopy was advised in 5 years.? IMAGING STUDIES:??09/2023 ABD US SHOWED: 1. The pancreas appears atrophic with calcifications throughout the pancreas. The pancreatic duct measures 1.2 cm in diameter. 2. The proximal common duct is normal in size. The distal common duct is mildly dilated measuring 0.8 cm in diameter. BARIUM SWALLOW SHOWED: 1. 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 Consistent pooling in the piriform sinuses and vallecula. 2. Small amount of glottic/subglottic aspiration noted. 3. Mildly disorganized esophageal peristalsis. 4. Incomplete evaluation of the stomach, as detailed. Would definitely consider correlating with EGD. 06/01/[address] SCAN PERFORMED AT [facility]: Diffuse pancreatic calcifications with pancreatic atrophy.? Pancreatic duct dilated to 6 mm - likely due to pancreatic atrophy For least catheter in the urinary bladder Bilateral pleural effusion, ascites and diffuse anasarca.? L3-L4 compression fracture - age undetermined ENDOSCOPIC STUDIES: 11/25/23 EGD SHOWED: Esophagus: GE junction at 40 cms. Mildly tortuous esophagus with decreased contractions without stricture or ring. Esophageal balloon dilation of distal esophagus was performed with a 20 mm (60F) x 60 seconds Esophageal balloon dilation of proximal esophagus was performed with an 18 mm (54 F) x 60 seconds Stomach: Mosaic appearance of the stomach consistent with mild portal gastropathy. Moderate gastric antral erythema - biopsies were obtained from the antrum. Grade 2 flap valve and no gastric varices noted on retroflexed examination of the cardia. Impression and Post Procedure Diagnosis: Endoscopy Findings: ESOPHAGUS: Mildly tortuous esophagus. Esophageal balloon dilation was performed. STOMACH: Mosaic appearance of the stomach consistent with mild portal gastropathy. Moderate diffuse gastric erythema - biopsies were obtained from the antrum. Plan: Pt has a FU appointment on 12/01/[address] Estevez. BIOPSIES SHOWED: Stomach, antrum, biopsy: Antral-type mucosa with mild chronic inactive inflammation and focal intestinal metaplasia; negative for dysplasia; no Helicobacter organisms seen 03/25/23 COLONOSCOPY SHOWED: Two medium sized polyps removed Moderate diverticulosis seen in the entire colon Plan: Repeat Colonoscopy interval based on path results - in 2 years if polyps are adenomatous and to check polypectomy site at the hepatic flexure. 03/02/22 Pt had an EUS at [facility] by Dr Mc which showed: Distended gallbladder, and normal liver panel time a with normal-sized intrahepatic ducts and mid CBD. Dilated pancreatic duct in head, smoothly transitioning to midbody. No stones noted within the pancreatic duct. Atrophic pancreatic duct with calcifications within the side branches, no discrete masses found in the pancreatic parenchyma. Multiple tortuous blood vessels noted in the lesser sac region close to the splenic vein. Patient was advised to take frequent small meals and continue Creon and refrain from EtOH use. Of note colonoscopy was attempted after EUS in terminated due to poor prep. PAST GI HISTORY BY REVIEW OF MEDICAL RECORDS: 12/14/20 pt was seen by Dr. Silvestre for anemia: 64 years old male with PMH of CAD post CABG, diabetes on insulin, HLD, neuropathy, alcohol abuse who I am seeing for assessment for anemia,He actually presents with worsening left big toe ulcer with increased warmth, swelling, erythema and tenderness around the area with drainage. He does have peripheral neuropathy at baseline as well. part of work up revealed anemia He denies hematuria, no melena, or rectal bleeding. He has no GERd, dysphagia, weight loss or fevers. he said he had EGD and colonoscopy mayb 5-6 yrs ago, results unknown Imaging suggestive of osteomyelitis. 1/ Macrocytic anemia, maybe due to diet, or chronic anemia from osteomyelitis or bone marrow disease, no overt GI blood loss PLAN: 1/ priority right now is treatment of the osteomyelitis, would defer EGD and colonoscopy to either early outpatient or after few days of ABX therapy. Discussed with primary team. Meantime PPI e.g pantoprazole 40 mg OD and fluid/vol resuscitate, if clinical status changes and he has overt GI bleeding then can change plan accordingly [facility] Medical History (Updated 09/13/24 @ 08:58 by Elisha Estevez MD) Ascites Chronic kidney disease GERD (gastroesophageal reflux disease) Macrocytic anemia Chronic diabetic ulcer of right foot determined by examination Anemia Osteomyelitis Hearing difficulty Neuropathy Cataracts, bilateral Bunion Heart attack CAD (coronary artery disease) High cholesterol Diabetes Hypertension Surgical History History of esophagogastroduodenoscopy (EGD) H/O colonoscopy Hx of heart artery stent Hx of cystoscopy Hx of endoscopy History of bunionectomy of right great toe H/O rotator cuff surgery H/O heart bypass surgery Family History Sister HTN (hypertension) Sister HTN (hypertension) Father Heart disease Heart attack Mother Kidney failure Social History Household Members: Significant Other Housing: [facility] Are you a primary hospice patient care secretary to a significant other at home: No Do you presently have visiting nurse or other home services: No Alcohol intake: current Alcohol intake frequency: former alcohol drinker Alcohol type: beer Patient Tobacco Use Status: Former Tobacco user Tobacco use type: Cigarette Cigarette Packs Per Day: 1 Cigarettes Per Day: 20 Years Smoked: 15 e-Cigarette/Vaping Use: Never Used Substance Use Type: Marijuana service: No Current occupational status: unemployed Cognitive needs: No Hearing needs: Yes Vision needs: No Review of Systems Const All systems reviewed & are unremarkable except as noted in HPI and below Physical Exam Vital Signs: Last Vital Signs Pulse 64 05/31/24 09:13 BP 149/76 H 05/31/24 09:13 BMI result Body Mass Index 21.8 Const General: healthy appearing and no acute distress Nutritional Appearance: average body habitus Orientation/consciousness: patient oriented x3 Limitations: no limitations HEENT Head: Yes normal to inspection Ears: hearing grossly normal bilaterally Eyes Sclerae: sclerae normal Pupils: Equal, round and reactive pupils present Neck Neck: Yes normal visual inspection Chest Chest palpation & inspection: normal inspection of the chest Resp Effort & Inspection: normal respiratory effort Auscultation: clear to auscultation bilaterally Cardio Palpation: normal PMI Rate: regular rate Rhythm: regular rhythm Heart sounds: S1 normal heart sound present, S2 normal heart sound present and no murmurs GI Palpation (GI): Soft to palpation, nontender and No hepatosplenomegaly present Auscultation: normal bowel sounds Rectal Exam - Male: Yes deferred Skin General skin exam: no rashes or lesions noted Neuro General: patient oriented x3, gait normal and moves all extremities Cranial nerves: Yes Equal, round and reactive pupils present Psych Appearance: grossly normal Mental Status: mental status grossly normal Assessment & Plan Assessment & Plan (1) Acute on chronic anemia: Code(s): D64.9 - Anemia, unspecified Category: Medical (2) Acid reflux: Code(s): K21.9 - Gastro-esophageal reflux disease without esophagitis Category: Medical (3) Alcoholic cirrhosis of liver with ascites: Code(s): K70.31 - Alcoholic cirrhosis of liver with ascites Category: Medical (4) Abnormal MRI of abdomen: Code(s): R93.5 - Abnormal findings on diagnostic imaging of other abdominal regions, including retroperitoneum Category: Medical (5) Dysphagia, pharyngoesophageal phase: Code(s): R13.14 - Dysphagia, pharyngoesophageal phase Category: Medical (6) Cricopharyngeal achalasia: Code(s): K22.0 - Achalasia of cardia Category: Medical (7) Diarrhea: Code(s): R19.7 - Diarrhea, unspecified Category: Medical Plan 68 YM with poorly controlled DM complicated by neuropathy and nephropathy, cardiomyopathy, ESLD, chronic calcific pancreatitis referred urgently due to ongoing weight loss despite good appetite and adequate p.o. intake. Patient has decompensated cirrhosis complicated by ascites and hepatic encephalopathy - had mild ascites on physical exam. Patient has a history of acute and chronic pancreatitis requiring hospitalization in past. Pt's weight loss is likely a combination of uncontrolled DM and malabsorption due to chronic calcific pancreatitis. Pt is also at increased risk for Pancreatic Cancer (due to chronic pancreatitis) and HCC. I will check lab and stool tests for malabsorption.? Patient was advised to start pancreatic enzymes with meals and monitor his weight. He needs better control of his diabetes - he would benefit from referral to Endocrinology. 03/02/22 Pt had an EUS at [facility] by Dr Mc which showed: Distended gallbladder, and normal liver panel time a with normal-sized intrahepatic ducts and mid CBD. Dilated pancreatic duct in head, smoothly transitioning to normal size in midbody. No stones noted within the pancreatic duct. Atrophic pancreatic duct with calcifications within the side branches, no discrete masses found in the pancreatic parenchyma. Multiple tortuous blood vessels noted in the lesser sac region close to the splenic vein. Patient was advised to take frequent small meals and continue Creon and refrain from EtOH use. Of note colonoscopy was attempted after EUS and terminated due to poor prep. 03/25/2023 colonoscopy was performed in findings as noted above 05/26/23 Has diarrhea alternating with constipation Intermittent dysphagia associated with intake of solids - with every meal for the past 6 months, Has a good appetite and wt gain of 40 lbs over the past year. Patient advised to schedule a barium swallow for evaluation of dysphagia. He is due for an abdominal ultrasound in spring for follow-up of cirrhosis MELD score is 12 11/24/23 Pt complains of dysphagia to solids for the past 6 months Barium swallow showed moderate to severe cricopharyngeal achalasia and incomplete evaluation of the stomach Pt advised further evaluation with EGD with esophageal balloon dilation - scheduled on 11/25/23. 12/01/23 Noted a slight sore throat for a few days after EGD Denies any change in dysphagia Biopsy results reviewed - gastric metaplasia and advised repeat EGD in 3 years. Pt was offered referreal to ENT for cricopharyngeal myotomy versus Botox injection. Patient would prefer to monitor his symptoms for now He was advised to contact my office if he noted worsening dysphagia symptoms 05/31/24 Pt advised to have stool test to check for C diff colitis. Abd US to screen for HCC FU in 6 month Orders: Orders US abdomen limited 06/06/24 K70.31 - Alcoholic cirrhosis of liver with ascites CDiff Gene PCR 05/31/24 R19.7 - Diarrhea, unspecified Coding Level of Care Code Est Pt Level 4 (76342) Diagnoses Acute on chronic anemia D64.9 Acid reflux K21.9 Alcoholic cirrhosis of liver with ascites K70.31 Abnormal MRI of abdomen R93.5 Dysphagia, pharyngoesophageal phase R13.14 Cricopharyngeal achalasia K22.0 Diarrhea R19.7 Time Spent (min) 23
[2024-05-31 09:13] VITALS: BP 149/76; PULSE 64; BMI 21.8
== END 2024-05-31 09:57 | disposition home or self-care (01) ==
LOC: HO.HGI 08:59
PROVIDERS: PCP Internal Medicine; Visit Provider Internal Medicine Gastroenterology
DX: D64.9 Anemia, unspecified (principal); K21.9 Gastro-esophageal reflux disease without esophagitis; K70.31 Alcoholic cirrhosis of liver with ascites; R93.5 Abnormal findings on diagnostic imaging of other abdominal regions, including retroperitoneum; R13.14 Dysphagia, pharyngoesophageal phase; K22.0 Achalasia of cardia; R19.7 Diarrhea, unspecified
CPT/HCPCS: 99214

== ENCOUNTER → 2024-05-31 08:58 | Outpatient (BNVA) | payer MEDICARE, OTHER, SELFPAY | PROVIDERS: PCP Internal Medicine; Visit Provider Internal Medicine Gastroenterology | DX: R19.7 Diarrhea, unspecified (principal); K21.9 Gastro-esophageal reflux disease without esophagitis; K70.31 Alcoholic cirrhosis of liver with ascites; K22.0 Achalasia of cardia; R13.14 Dysphagia, pharyngoesophageal phase; R93.5 Abnormal findings on diagnostic imaging of other abdominal regions, including retroperitoneum; D64.9 Anemia, unspecified | CPT/HCPCS: 99212 ==

== ENCOUNTER 2024-06-06 09:01 | Outpatient (REF) | payer MEDICARE, OTHER, SELFPAY ==
--- NOTE | ~2024-06-06 | US_ITS ---
EXAMINATION: US ABDOMEN LIMITED CLINICAL INFORMATION: Alcoholic cirrhosis of liver with ascites. COMPARISON: Limited abdominal ultrasound 09/30/2023. Ultrasound abdomen complete 03/01/2023. CT abdomen and pelvis 02/19/2022. MRI MRCP 09/16/2021. TECHNIQUE: Real-time imaging of the right upper quadrant abdominal viscera. FINDINGS: PANCREAS: The visualized portion of the pancreas head and body are normal, portion of the pancreatic body and tail, not visualized are obscured by bowel gas. LIVER: The liver is normal in size. The liver contour is normal. Increased echogenicity of the liver parenchyma, this can be seen in the setting of hepatic steatosis or liver parenchymal disease. No focal hepatic lesion. There is no intrahepatic biliary duct dilatation seen. GALLBLADDER: The gallbladder appears distended without evidence of stones, sludge, polyps, wall thickening or pericholecystic fluid. Gallbladder is markedly distended. COMMON BILE DUCT: Normal in caliber measuring 0.3 cm in diameter. RIGHT KIDNEY: No hydronephrosis. No renal calculi or focal parenchymal lesions. The kidney measures 8.5 cm in maximum dimension. FREE FLUID: None. US/US abdomen limited IMPRESSION: 1. Increased echogenicity of the liver parenchyma, this can be seen in the setting of hepatic steatosis or liver parenchymal disease. 2. Distended gallbladder, no ultrasound evidence of cholecystitis. Electronically signed by: Gladis Malhotra MD 06/10/2024 05:45 PM EST
== END 2024-06-06 09:02 | disposition home or self-care (01) ==
LOC: HO.HMGCX 09:01
PROVIDERS: PCP Internal Medicine; Visit Provider Internal Medicine Gastroenterology
DX: K70.31 Alcoholic cirrhosis of liver with ascites (principal)
CPT/HCPCS: 76705

== ENCOUNTER 2024-07-11 09:14 | Outpatient (REF) | payer MEDICARE, OTHER, SELFPAY ==
[2024-07-11 13:25] LABS: MANUAL DIFF FLAG NO
[2024-07-11 13:35] LABS: Basophils Percent Auto 0.6 % (0-2); Eosinophils Absolute Auto 0.1 X10*3/uL (0.0-0.4); Hematocrit 38.1 % (42.0-52.0); Hemoglobin 12.7 g/dl (14.0-18.0); Imm Gran Abs Auto 0.02 X10*3/uL (0.00-0.03); Imm Gran Pct Auto 0.3 % (0.0-0.4); Lymphocytes Absolute Auto 1.2 X10*3/uL (1.2-4.9); Mean Corpuscular HGB Conc 33.3 g/dl (31.0-36.0); Mean Corpuscular Hemoglobin 31.5 pg (27.0-33.0); Mean Corpuscular Volume 94.5 fL (80.0-98.0); Mean Platelet Volume 12.5 fL (9.4-12.4); Monocytes Absolute Auto 0.5 X10*3/uL (0.1-1.2); Monocytes Percent Auto 7.4 % (2-11); Neutrophils Absolute Auto 4.5 x10*3/uL (2.0-8.3); Neutrophils Percent Auto 71.7 % (45-73); Platelet Count 117 X10*3/uL (160-400); Red Blood Count 4.03 X10*6/uL (4.60-5.80); Red Cell Distribution Width 13.8 % (11.0-16.0); White Blood Count 6.3 X10*3/uL (4.8-10.8)
[2024-07-11 13:43] LABS: Estimated Average Glucose 126 mg/dL; Hemoglobin A1C 135.5726 umol/L; Total Hemoglobin (HGBA1C) 3222.1092 umol/L
[2024-07-11 14:00] LABS: Alanine Aminotransferase 37 U/L (0-40); Albumin Level 4.2 g/dL (3.5-5.0); Alkaline Phosphatase 66 U/L (39-117); Anion Gap 11 (12-20); Aspartate Amino Transferase 32 U/L (5-37); Bilirubin Total 0.5 mg/dL (0.0-1.0); Blood Urea Nitrogen 35 mg/dL (9-16); Calcium 8.7 mg/dL (8.4-10.2); Carbon Dioxide 22 mmol/L (22-29); Chloride 110 mmol/L (96-108); Estimated Glomerular Filt Rate 31; Glucose Random 142 mg/dL (60-115); Potassium 4.4 mmol/L (3.3-5.1); Sodium 139 mmol/L (135-145); Total Protein 7.4 g/dL (6.5-8.0)
[2024-07-11 14:07] LABS: TSH reflex Free T4 1.42 uIU/mL (0.32-4.0)
[2024-07-11 14:11] LABS: Vitamin B12 788 pg/mL (200-900)
[2024-07-12 20:28] LABS: LDL Cholesterol Direct 36 mg/dL (<100)
[2024-07-16 17:57] LABS: Vitamin D 25-OH, D2 <4 ng/mL; Vitamin D 25-OH, D3 40 ng/mL; Vitamin D 25-OH, Total 40 ng/mL (30-100)
== END 2024-07-11 09:15 | disposition home or self-care (01) ==
LOC: HO.HMGCLDS 09:14
PROVIDERS: PCP Internal Medicine; Visit Provider Internal Medicine
DX: E10.40 Type 1 diabetes mellitus with diabetic neuropathy, unspecified (principal); E10.22 Type 1 diabetes mellitus with diabetic chronic kidney disease; I12.9 Hypertensive chronic kidney disease with stage 1 through stage 4 chronic kidney disease, or unspecified chronic kidney disease; N18.9 Chronic kidney disease, unspecified; E10.49 Type 1 diabetes mellitus with other diabetic neurological complication; E78.00 Pure hypercholesterolemia, unspecified; F32.A Depression, unspecified; K70.9 Alcoholic liver disease, unspecified; I42.6 Alcoholic cardiomyopathy; K70.31 Alcoholic cirrhosis of liver with ascites
CPT/HCPCS: 36415; 80053; 82306; 82607; 83036; 83721; 84443; 85025; 99212

== ENCOUNTER 2024-07-11 09:14 | Outpatient (AMB) | payer MEDICARE, OTHER, SELFPAY ==
--- OUTSIDE RECORDS SUMMARY | 2024-07-11 09:17 | XMS_ITS ---
Author Organization [facility] Address [address] [place] [address] Care Team Providers Care Tool Grinding Technician Name Role Phone Regulo CONKLIN, [facility] Primary [facility] Provider UnavailNi Banks Unavailable [phone] Zhang Luis Unavailable [phone] Allergies Allergen (clinical drug ingredient) Drug/Non Drug Allergy documented on EMR Reaction Allergy Type Onset Date Status codeine Codeine Sulfate rapid pulse, shortness of breath, hypertation, sweats Drug Allergy Active REASON FOR VISIT Painful nail(s) aggrevated by shoes and causing difficulty standing/walking. Medications Medication SIG (Take, Route, Frequency, Duration) Notes Start Date End Date Status metFORMIN HCl 1000 MG Oral for 30 Not-Taking Lisinopril 20 MG Oral for 90 N ot-Taking glipiZIDE Not-Taking Lyrica 50 MG 1 capsule Orally Three times a day Not-Taking Ketostix In Vitro for 50 Not- Taking Antibiotic Not-Takin g Ferrous Sulfate 325 (65 Fe) MG 1 tablet Orally Once a day Not-Taking Folic Acid 1 MG Oral for 90 No t-Taking Gabapentin 600 MG Oral for 90 Not-Taking glyBURIDE 5 MG Oral for 30 Not -Taking Metoprolol Succinate ER 50 MG 1 tablet Orally Once a day Not-Taking Insulin Cartridge 3ML Not-Taking Extra Depth Diabetic Shoes with 3 Pair Custom heat-molded multi-density innersoles for 1 year Dx: 02/25/2021 Not-Taking FreeStyle Lancets for 90 No t-Taking FreeStyle Lite Test In Vitro for 90 Not-Taking Furosemide 40 MG 1 tablet Orally Once a day for 30 day(s) Not-Taking Lactulose Not-Taking Omeprazole 40 MG 1 capsule 30 minutes before morning meal Orally Once a day for 30 day(s) Not-Taking Basaglar KwikPen Not -Taking Tamsulosin HCl 0.4 MG 1 capsule Orally Once a day for 30 day(s) Not-Taking Vitamin B-1 100 MG 1 tablet Orally Once a day for 30 day(s) Not-Taking Zenpep Not-Taking Zolpidem Tartrate No t-Taking Enulose Not-Taking Vitamin C Not-Taking Spironolactone 25 MG 1 tablet Orally for 30 day(s) Active Atorvastatin Calcium 20 MG 1 tablet Orally Once a day Active Aspirin 81 MG 1 tablet Orally Once a day Active Extra Depth Diabetic Shoes with 3 Pair Custom heat-molded multi-density innersoles for 1 year Dx: Active Multivitamins Orally Active Pregabalin 100 MG 1 capsule Orally Three times a day Active Calcitriol 0.25 MCG 1 capsule Orally Three times a Week Active Levemir Active NovoLOG sliding scale Active Creon Active Physical Therapy . . . 2-3x/week for 3-4 weeks 03/01/2014 Not-Taking Physical Therapy . . . 2-3x/week for 3-4 weeks Not-Taking Amoxicillin Active Doxycycline Hyclate Active Sodium Bicarbonate 650 MG as directed Orally Active Nitrostat 0.4 MG Sublingual No t-Taking Social History Tobacco Use: Social History Observation Description Date Details (start date - stop date) Former Smoker NA - NA Tobacco Use/Smoking Question Answer Notes Are you a: former smoker Additional Findings: Tobacco Non-User Current no n-smoker Alcohol Screen Question Answer Notes Did you have a drink containing alcohol in the p ast year? No Points 0 Interpretation Negative Tobacco use other than smoking: Question Answer Notes Are you an other tobacco user? No Vital Signs Height 5ft 11in in 05/04/2024 Weight 155 lbs 05/04/2024 BMI 21.62 kg/m2 05/04/2024 Encounters Encounter Location Date Provider Diagnosis [facility] [place] [address] [place] [id number] 05/04/2024 Zhang Luis Type 1 diabetes mellitus with diabetic polyneuropathy E10.42 ; Tinea unguium B35.1 ; Pain in right toe(s) M79.674 ; Pain in left toe(s) M79.675 ; Hallux valgus (acquired), left foot M20.12 ; Skin disease L98.9 ; Hallux rigidus, right foot M20.21 ; Localized edema R60.0 ; Pain in left foot M79.672 and Pain in right foot M79.671 Assessments Encounter Date Diagnosis (ICD Code) Assessment Notes Treatment Notes Treatment Clinical Notes Section Notes 05/04/2024 Type 1 diabetes mellitus with diabetic polyneuropathy (ICD-10 - E10.42) 05/04/2024 Tinea unguium (ICD-10 - B35.1) 05/04/2024 Pain in right toe(s) (ICD-10 - M79.674) 05/04/2024 Pain in left toe(s) (ICD-10 - M79.675) 05/04/2024 Hallux valgus (acquired), left foot (ICD-10 - M20.12) 05/04/2024 Skin disease (ICD-10 - L98.9) 05/04/2024 Hallux rigidus, right foot (ICD-10 - M20.21) 05/04/2024 Localized edema (ICD-10 - R60.0) 05/04/2024 Pain in left foot (ICD-10 - M79.672) 05/04/2024 Pain in right foot (ICD-10 - M79.671) Plan Of Treatment Next Appt Details Follow Up: 2 Months, Reason: Provider Name:Nicheryl duncan, 07/12/2024 09:45:00 AM, [address] [place] [address], [id number], Procedure Notes * Category Sub-Category Detail Notes Debride Nail 6-10 Nail debridement Nail debridem ent performed extensively to reduce/remove overall nail length and girth, subungual debris, and necrotic tissue, by manual and electrical means with use of a nail nipper and/or dremel, to more viable healthy nail plate or bed tissue 6-10. Silver nitrate used for any petechial bleeding as necessary. Patient chooses, no pharmaceutical tx ([id number]) Keratoma Treatment Parring or Cutting o f Benign Hyperkeratotic Lesion(s) 35683 (2-4 Lesions) - The Benign hyperkeratotic lesions, as described above were pared, and/or cut utilizing a sterile #15 blade, tissue nippers, and/or dremel Progress Notes * Quentin LARA SDOB:[birth year] (68 yo M)Acc No.[id number]:05/04/2024 Progress Note Patient:Quentin Herrmann Provider:?Zhang Luis DPM :1955???Age:68 Y???Sex:Male Santana e:05/04/2024 Address:[address] [place] [address] [place] , [id number] Pcp:Rufino Rajput MD Subjective: * Chief Complaints: * ??? Painful nail(s) aggrevat ed by shoes and causing difficulty standing/walking. * HPI: ???At Risk footcare:?Pt States Last PCP Visit:?Date?03/26/2024 ?Misc?pt just had left foot sx with Dr. Alfredo 03/13/24 and is healing well.? * ROS:?General/Constitutional:?Nausea?denies.?Vomiting?denies.?Hunger Thirst?denies.?Loss appetite?admits.?Chills?denies.?Fatigue?admits.?Fever?denies.?Night Sweats?denies.?Unexplained weight loss?denies.?Unexplained weight gain?admits.?HEENTM:?Dentures?denies.?Dizziness?admits.?Glasses/contacts?denies.?Retinopathy?ad mits.?Blurred/double vision?admits.?TMJ?denies.?Discharge/drainage?denies.?Implants?denies.?Sore throat?denies.?Dental implants?denies.?Hard of hearing ?denies.?Difficulty chewing/swallowing/speaking?denies.?Nose bleeds?denies.?Sore mouth?denies.?Respiratory:?On Oxygen?denies.?Pneumonia/pleurisy?admits.?Bronchitis?denies.?Emphysema?denies.?C oughing?denies.?Cough blood?denies.?Shortness of breath?denies.?Wheezing?denies.?Cardiovascular:?Pacemaker?denies.?MVP?denies.?WPW?denies.?CHF?denies.?Heart attack?admits.?Septal defect?denies.?Rapid beat?denies.?Chest pain ?denies.?Atrial Fib.?denies.?Murmur/Palpitations?denies.?Gastrointestinal:?Hemorrhoids?denies.?Stomach/Abdominal pain?denies.?Dark blood stool?denies.?Irritable bowel ?denies.?Constipation?denies.?Diarrhea?admits.?Hematology:?Swelling?admits.?Clots?denies.?Varicose Veins?denies.?Bruising?admits.?Bleeding problem?denies.?Genitourinary:?Blood urine?denies.?Frequent/Painfu/urination/bladder control?denies.?Kidney stones?denies.?Infection (UTI)?denies.?Nephropathy?denies.?sex trans dis (STD)?denies.?Prostate?denies.?Musculoskeletal:?Hammertoes?denies.?Bunions?admits.?Back Pain?denies.?Muscle Cramps/ Resting?denies.?Muscle cramps / walking?denies.?Generalized aches and pains?admits.?Weakness?admits.?Integ.:?Arshad?denies.?Scars?denies.?Corns/calluses?admits.?Ingrown nails?denies.?Painful nails?denies.?Open Sores?admits.?Rashes?denies.?Neurologic:?Difficulty sleeping?denies.?Brain disorder?denies.?Numbness?denies.?Balance trouble?admits.?Confusion?denies.?Fainting/blackouts?denies.?Tingling?denies.?Tr emors?denies.? * Medical History:? * Surgical History:?right foot surgery 2011angioplasty of carotid artery: intracranial angioplasty left rotator cuff tear repair 2012Heart stent 2000, 2011open heart /triple bypass 09/2014[facility] eye sx ataract Surgery 06/16Eye surgery - cataract slipped behind eyeball 07/16eye surgery, bitractomy 11/10/23left foot surgery, hardware removed from previous bunion surgery 02/03/24 * Hospitalization/Major Diagno stic Procedure:?[facility] - pneumonia 06/20131845-6-03[facility] ER- Coundn't get up/stand -KidneyLiver failure-swelling/Infection ICU few weeks - rehab 6wks 05/29/2021[facility]- stent, kidney sones, 3 day stay 02/19/22 * Family History:?Mother: dece ased, kidney failure, kidney/liver disease, diagnosed with Diabetic - NIDDM.?Father: , coronary artery disease, foot problems, diagnosed with Unspecified essential hypertension, Unspecified heart disease.?Siblings: foot problems, diagnosed with Unspecified essential hypertension.? no children. * Social History:?Tobacco Use:?Tobacco Use/Smoking?Are you a:?former smoker ?Additional Findings: Tobacco Non-User?Current non-smoker ?Tobacco use other than smoking?Are you an other tobacco user??No ???Drugs/Alcohol:?Drugs?Have you used drugs other than those for medical reasons in the past 12 months??No ?Alcohol Screen?Did you have a drink containing alcohol in the past year??No ?Points?0 ?Interpretation?Negative ???Miscellaneous:?Caffeine: yes, 1 cups per day. ?Children: none. ?Exercise: yes, walking. ?Marital status: single. ?Occupation: Retired-[employer]. * Medications:?TakingDoxycycli ne Hyclate Amoxicillin Sodium Bicarbonate 650 MG Tablet as directed Orally Calcitriol 0.25 MCG Capsule 1 capsule Orally Three times a WeekPregabalin 100 MG Capsule 1 capsule Orally Three times a dayNovoLOG , Notes: sliding scaleLevemir Creon Spironolactone 25 MG Tablet 1 tablet Orally Aspirin 81 MG Tablet 1 tablet Orally Once a dayAtorvastatin Calcium 20 MG Tablet 1 tablet Orally Once a dayMultivitamins Capsule Orally Extra Depth Diabetic Shoes with 3 Pair Custom heat-molded multi-density innersoles for 1 year Dx:Taking Doxycycline Hyclate Taking Amoxicillin Taking Sodium Bicarbonate 650 MG Tablet as directed Orally Taking Calcitriol 0.25 MCG Capsule 1 capsule Orally Three times a WeekTaking Pregabalin 100 MG Capsule 1 capsule Orally Three times a dayTaking NovoLOG , Notes: sliding scaleTaking Levemir Taking Creon Taking Spironolactone 25 MG Tablet 1 tablet Orally Taking Aspirin 81 MG Tablet 1 tablet Orally Once a dayTaking Atorvastatin Calcium 20 MG Tablet 1 tablet Orally Once a dayTaking Multivitamins Capsule Orally Taking Extra Depth Diabetic Shoes with 3 Pair Custom heat-molded multi-density innersoles for 1 year Dx:Not-Taking/PRNVitamin C Zenpep Vitamin B-1 100 MG Tablet 1 tablet Orally Once a dayEnulose Zolpidem Tartrate Lactulose Furosemide 40 MG Tablet 1 tablet Orally Once a dayBasaglar KwikPen Omeprazole 40 MG Capsule Delayed Release 1 capsule 30 minutes before morning meal Orally Once a dayTamsulosin HCl 0.4 MG Capsule 1 capsule Orally Once a dayFreeStyle Lite Test Strip In Vitro FreeStyle Lancets Miscellaneous Insulin Cartridge 3ML Metoprolol Succinate ER 50 MG Tablet Extended Release 24 Hour 1 tablet Orally Once a dayExtra Depth Diabetic Shoes with 3 Pair Custom heat-molded multi-density innersoles for 1 year Dx:Antibiotic Folic Acid 1 MG Tablet Oral Ferrous Sulfate 325 (65 Fe) MG Tablet 1 tablet Orally Once a dayglyBURIDE 5 MG Tablet Oral Gabapentin 600 MG Tablet Oral glipiZIDE Ketostix Strip In Vitro Lyrica 50 MG Capsule 1 capsule Orally Three times a dayLisinopril 20 MG Tablet Oral metFORMIN HCl 1000 MG Tablet Oral Nitrostat 0.4 MG Tablet Sublingual Sublingual Physical Therapy . . . . 2-3x/weekPhysical Therapy . . . . 2-3x/weekMedication List reviewed and reconciled with the patientNot-Taking/PRN Vitamin C Not-Taking/PRN Zenpep Not-Taking/PRN Vitamin B-1 100 MG Tablet 1 tablet Orally Once a dayNot-Taking/PRN Enulose Not- Taking/PRN Zolpidem Tartrate Not-Taking/PRN Lactulose Not-Taking/PRN Furosemide 40 MG Tablet 1 tablet Orally Once a dayNot-Taking/PRN Basaglar KwikPen Not-Taking/PRN Omeprazole 40 MG Capsule Delayed Release 1 capsule 30 minutes before morning meal Orally Once a dayNot-Taking/PRN Tamsulosin HCl 0.4 MG Capsule 1 capsule Orally Once a dayNot-Taking/PRN FreeStyle Lite Test Strip In Vitro Not-Taking/PRN FreeStyle Lancets Miscellaneous Not-Taking/PRN Insulin Cartridge 3ML Not-Taking/PRN Metoprolol Succinate ER 50 MG Tablet Extended Release 24 Hour 1 tablet Orally Once a dayNot-Taking/PRN Extra Depth Diabetic Shoes with 3 Pair Custom heat-molded multi-density innersoles for 1 year Dx:Not-Taking/PRN Antibiotic Not-Taking/PRN Folic Acid 1 MG Tablet Oral Not-Taking/PRN Ferrous Sulfate 325 (65 Fe) MG Tablet 1 tablet Orally Once a dayNot-Taking/PRN glyBURIDE 5 MG Tablet Oral Not-Taking/PRN Gabapentin 600 MG Tablet Oral Not-Taking/PRN glipiZIDE Not-Taking/PRN Ketostix Strip In Vitro Not-Taking/PRN Lyrica 50 MG Capsule 1 capsule Orally Three times a dayNot- Taking/PRN Lisinopril 20 MG Tablet Oral Not-Taking/PRN metFORMIN HCl 1000 MG Tablet Oral Not-Taking/PRN Nitrostat 0.4 MG Tablet Sublingual Sublingual Not-Taking/PRN Physical Therapy . . . . 2-3x/weekNot-Taking/PRN Physical Therapy . . . . 2- 3x/weekMedication List reviewed and reconciled with the patient * Allergies:?Codeine Sulfate: rapid pulse, shortness of breath, hypertation, sweatsyes[Allergies Verified] Objective: * Vitals:?Ht: 5ft 11in, Wt:155 , BMI:21.62, Shoe size:10.5, BS:91. * ???Past Orders: ???Lab:HEMOGLOBIN A1C (GLYCO HEMOGLOBIN) (Order Date - 02/24/2024) (Collection Date - 02/24/2024) ? Value Reference Range ?HEMOGLOBIN A1C % (HH) 7.1 * Examination: ???Ophthalmology Referral: ?DIABETES EYE EXAM?Neurological: ?SENSORY:? Neurological exam demonstrates, reduced light touch sensation, reduced vibration sensation, 5.07 monofilament test performed at plantar aspects of 5 varied sites per foot shows sensation, reduced , B/L.?Vascular: ?DP PULSES(B):? 07/28, B/L.?PT PULSES(B):? /, B/L.?TELANGECTASIA:?absent, B/L.?Nails: ?NAILS are:? Elongated, overgrown, dystrophic, lytic, greater than 3mm thick, discolored and friable with crumbly malodorous subungual debris, with dull to no pain on palpation due to neuropathy, 1-5 B/L.?Dermatologic: ?SKIN FINDINGS:? Skin exam reveals Keratotic lesion(s) located at, Medial plantar, IPJ, T5, SUB MTH (s), 1, Right.?SURGICAL SITE? Skin and Sutures intact, Incision edges are well aligned and adhered, CFT intact , No signs or symptoms consistent with infection .?General Examination: ?GENERAL APPEARANCE:?pleasant, alert, well nourished, well developed, well hydrated, with good attention to hygene/body habitus, and in no acute distress.?ORIENTED:?person,place, and time.?FOOT EXAM:?Orthopedic: ?MUSCLE STRENGTH:?5/5 all groups in a symmetrical fashion , B/L.?BUNION:? Medially prominent 1st MPJ, LEFT, Lateral tracking 1st MPJ nonreducable; fusion right first mtpj from sx 2010.?TAILOR'S BUNION:? Prominent 5th MTH/MPJ, LEFT.? Assessment: * Assessment: 1.?Type 1 diabetes mellitus with diabetic polyneuropathy - E10.42?2.?Tinea unguium - B35.1?3.?Pain in right toe(s) - M79.674?4.?Pain in left toe(s) - M79.675?5.?Hallux valgus (acquired), left foot - M20.12?6.?Skin disease - L98.9 (Primary)?7.?Hallux rigidus, right foot - M20.21?8.?Localized edema - R60.0?9.?Pain in left foot - M79.672?10.?Pain in right foot - M79.671? Plan: * Treatment: * Procedures:?Debride Nail 6-10:?Nail debridement?Nail debridement performed extensively to reduce/remove overall nail length and girth, subungual debris, and necrotic tissue, by manual and electrical means with use of a nail nipper and/or dremel, to more viable healthy nail plate or bed tissue 6-10. Silver nitrate used for any petechial bleeding as necessary. Patient chooses, no pharmaceutical tx (20164).?Keratoma Treatment:?Parring or Cutting of Benign Hyperkeratotic Lesion(s)?58457 (2-4 Lesions) - The Benign hyperkeratotic lesions, as described above were pared, and/or cut utilizing a sterile #15 blade, tissue nippers, and/or dremel.? * Procedure Codes:?06354 DEBRI DE NAIL, 6 OR MORE, Modifiers: XS 73188 TRIM SKIN LESIONS, 2 TO 4, Modifiers: XS * Follow Up:?2 Months * Images: * Sign off status: Completed true * Provider:?Zhang Luis DPM Date:? 024 Generated for Lucyi bharat/Shellyg/eTransmitting on:?07/11/2024 09:17 AM EST History and Physical Notes * HPI (History of Present Illness) Category Sub-Category Detail Notes Category Not es At Risk footcare Pt States Last PCP Visit: Date: 4 Misc pt just had left blake t sx with Dr. Alfredo 03/13/24 and is healing well Examination Category Sub-Category Detail Notes Category Not es Neurological SENSORY: Neurological exa m demonstrates, reduced light touch sensation, reduced vibration sensation, 5.07 monofilament test performed at plantar aspects of 5 varied sites per foot shows sensation, reduced , B/L Dermatologic SKIN FINDINGS: Skin exam reveal s Keratotic lesion(s) located at, Medial plantar, IPJ, T5, SUB MTH (s), 1, Right SURGICAL SITE Skin and Sutures int act, Incision edges are well aligned and adhered, CFT intact , No signs or symptoms consistent with infection Orthopedic BUNION: Medially promine nt 1st MPJ, LEFT, Lateral tracking 1st MPJ nonreducable; fusion right first mtpj from sx 2011 TAILOR'S BUNION: Prominent 5th MTH/MP J, LEFT MUSCLE STRENGTH: 5/5 all groups in a symmetrical fashion , B/L General Examination GENERAL APPEARANCE: pleasant , alert, well nourished, well developed, well hydrated, with good attention to hygene/body habitus, and in no acute distress FOOT EXAM: Lower Extremity Neurological Exa m performed:: Yes Visual exam of foot performed:: Yes Date: 05/04/2024 Sensory testing performed:: sensations d iminished Pedal pulse taking performed:: 1+ ORIENTED: person,place, and ti me Ophthalmology Referral DIABETES EYE EXAM Diabetic Reti nopathy Screening:: Yes 06/16 Findings of Diabetic Eye Exam:: no retin opathy Vascular DP PULSES(B): 1/4, B/L PT PULSES(B): 1/4, B/L TELANGECTASIA: absent, B/L Nails NAILS are: Elongated, overg rown, dystrophic, lytic, greater than 3mm thick, discolored and friable with crumbly malodorous subungual debris, with dull to no pain on palpation due to neuropathy, 1-5 B/L
--- OUTSIDE RECORDS SUMMARY | 2024-07-11 09:18 | XMS_ITS ---
[facility] Address [address] [place] [address] Care Team Providers Care Slot Machine Mechanic Name Role Phone Regulo CONKLIN, [facility] Primary [facility] Provider UnavailNi Banks Unavailable [phone] Zhang Luis Unavailable [phone] Allergies Allergen (clinical drug ingredient) Drug/Non Drug Allergy documented on EMR Reaction Allergy Type Onset Date Status codeine Codeine Sulfate rapid pulse, shortness of breath, hypertation, sweats Drug Allergy Active REASON FOR VISIT Painful nail(s) aggrevated by shoes and causing difficulty standing/walking., Ulcer(s) Medications Medication SIG (Take, Route, Frequency, Duration) Notes Start Date End Date Status Tamsulosin HCl 0.4 MG 1 capsule Orally Once a day for 30 day(s) Not-Taking FreeStyle Lite Test In Vitro for 90 Not-Taking Omeprazole 40 MG 1 capsule 30 minutes before morning meal Orally Once a day for 30 day(s) Not-Taking FreeStyle Lancets for 90 No t-Taking Insulin Cartridge 3ML Not-Taking Enulose Not-Taking Furosemide 40 MG 1 tablet Orally Once a day for 30 day(s) Not-Taking Basaglar KwikPen Not -Taking Zolpidem Tartrate No t-Taking Lactulose Not-Taking Multivitamins Orally Active Vitamin C Not-Taking Vitamin B-1 100 MG 1 tablet Orally Once a day for 30 day(s) Not-Taking Extra Depth Diabetic Shoes with 3 Pair Custom heat-molded multi-density innersoles for 1 year Dx: Active Zenpep Not-Taking Atorvastatin Calcium 20 MG 1 tablet Orally Once a day Active Spironolactone 25 MG 1 tablet Orally for 30 day(s) Active Aspirin 81 MG 1 tablet Orally Once a day Active Levemir Active Creon Active Pregabalin 100 MG 1 capsule Orally Three times a day Active NovoLOG sliding scale Active Sodium Bicarbonate 650 MG as directed Orally Active Calcitriol 0.25 MCG 1 capsule Orally Three times a Week Active Physical Therapy . . . 2-3x/week for 3-4 weeks Not-Taking metFORMIN HCl 1000 MG Oral for 30 Not-Taking Nitrostat 0.4 MG Sublingual No t-Taking Lyrica 50 MG 1 capsule Orally Three times a day Not-Taking Lisinopril 20 MG Oral for 90 N ot-Taking Physical Therapy . . . 2-3x/week for 3-4 weeks 03/01/2014 Not-Taking glipiZIDE Not-Taking Ketostix In Vitro for 50 Not- Taking glyBURIDE 5 MG Oral for 30 Not -Taking Gabapentin 600 MG Oral for 90 Not-Taking Ferrous Sulfate 325 (65 Fe) MG 1 tablet Orally Once a day Not-Taking Metoprolol Succinate ER 50 MG 1 tablet Orally Once a day Not-Taking Extra Depth Diabetic Shoes with 3 Pair Custom heat-molded multi-density innersoles for 1 year Dx: 02/25/2021 Not-Taking Antibiotic Not-Takin g Folic Acid 1 MG Oral for 90 No t-Taking Social History Tobacco Use: Social [...] No Vital Signs Height 5ft 11in in 02/24/2024 Weight 155 lbs 02/24/2024 BMI 21.62 kg/m2 02/24/2024 Encounters Encounter Location Date Provider Diagnosis [facility] [address] [place] [id number] 02/24/2024 Zhang Luis Type 1 diabetes mellitus with [...] Treatment Notes Treatment Clinical Notes Section Notes 02/24/2024 Type 1 diabetes mellitus with diabetic polyneuropathy (ICD-10 - E10.42) 02/24/2024 Tinea unguium (ICD-10 - B35.1) 02/24/2024 Pain in right toe(s) (ICD-10 - M79.674) 02/24/2024 Pain in left toe(s) (ICD-10 - M79.675) 02/24/2024 Hallux valgus (acquired), left foot (ICD-10 - M20.12) 02/24/2024 Skin disease (ICD-10 - L98.9) 02/24/2024 Hallux rigidus, right foot (ICD-10 - M20.21) 02/24/2024 Localized edema (ICD-10 - R60.0) 02/24/2024 Pain in left foot (ICD-10 - M79.672) 02/24/2024 Pain in right foot (ICD-10 - M79.671) Plan Of Treatment Next Appt Details Follow Up: 2 Months, Reason: Provider Name:Ni duncan, 07/12/2024 09:45:00 AM, [address] [place] [address], [phone], Procedure Notes * Category Sub-Category Detail [...] as necessary. Patient chooses, no pharmaceutical tx (39477) Keratoma Treatment Parring or Cutting o f Benign Hyperkeratotic Lesion(s) 34610 (2-4 Lesions) - The Benign hyperkeratotic lesions, as described above were pared, and/or cut utilizing a sterile #15 blade, tissue nippers, and/or dremel Progress Notes * Quentin LARA SDOB:[birth year] (68 yo M)Acc No.[id number]:02/24/2024 Progress Note Patient:Quentin Herrmann Provider:?Zhang Luis DPM :1955???Age:68 Y???Sex:Male Santana e:02/24/2024 Address:[address] [place] [address] [place] [place] , [id number] Pcp:Rufino Rajput MD Subjective: * Chief Complaints: * ??? Painful nail(s) aggrevat ed by shoes and causing difficulty standing/walking.Ulcer(s) * HPI: ???At Risk footcare:?Pt States Last PCP Visit:?Date?10/24/2023 ???Skin problems:?Nature:?Ulcer.?Location:?Left , Heel/Rearfoot.?Duration:?a few months.?Treatments:?pt had sx right foot with Dr. Alfredo 02/14.?Painful Nails:?Pt States Last PCP Visit:?Date:?10/24/2023 * ROS:?General/Constitutional:?Nausea?denies.?Vomiting?denies.?Hunger Thirst?denies.?Loss appetite?admits.?Chills?denies.?Fatigue?admits.?Fever?denies.?Night Sweats?denies.?Unexplained weight loss?denies.?Unexplained [...] /triple bypass 09/2014[facility] sx ataract Surgery 06/16Ey surgery - cataract slipped behind eyeball surgery, bitractomy 11/10/23left foot surgery, hardware removed from previous bunion surgery 02/03/24 * Hospitalization/Major Diagno stic Procedure:?[facility] - pneumonia [id number] ER- Coundn't get up/stand -KidneyLiver failure-swelling/Infection ICU [...] ?Exercise: yes, walking. ?Marital status: single. ?Occupation: Retired-[employer] * Medications:?TakingSodium Bi carbonate 650 MG Tablet as directed Orally Calcitriol [...] heat-molded multi-density innersoles for 1 year Dx:Taking Sodium Bicarbonate 650 MG Tablet as directed [...] for 1 year Dx:Not-Taking/PRNVitamin C Zenpep Vitamin B- 1 100 MG Tablet 1 tablet Orally Once [...] 1 tablet Orally Once a dayNot-Taking/PRN Enulose Not-Taking/PRN Zolpidem Tartrate Not-Taking/PRN Lactulose Not-Taking/PRN Furosemide 40 [...] Not-Taking/PRN glipiZIDE Not-Taking/PRN Ketostix Strip In Vitro Not- Taking/PRN Lyrica 50 MG Capsule 1 capsule Orally Three times a dayNot-Taking/PRN Lisinopril 20 MG Tablet Oral Not-Taking/PRN metFORMIN HCl 1000 MG Tablet Oral Not-Taking/PRN Nitrostat 0.4 MG Tablet Sublingual Sublingual Not-Taking/PRN Physical Therapy . . . . 2-3x/weekNot-Taking/PRN Physical Therapy . . . . 2-3x/weekMedication List reviewed and reconciled with the patient * Allergies:?Codeine Sulfate: rapid pulse, shortness of breath, hypertation, sweatsyes[Allergies Verified] Objective: * Vitals:?Ht: 5ft 11in, Wt:155 , BMI:21.62, Shoe size: 10.5, BS: 87, Ht-cm: 180.34 cm, Wt-k.31 kg. * ???Past Orders: ???Lab:HEMOGLOBIN A1C (GLYCO HEMOGLOBIN) (Order Date - 02/24/2024) (Collection Date - 02/24/2024) ? Value Reference Range ?HEMOGLOBIN A1C % (HH) 7.1 * Examination: ???Ophthalmology Referral: ?DIABETES EYE EXAM?Neurological: ?SENSORY:? Neurological exam demonstrates, reduced light touch sensation, reduced vibration sensation, 5.07 monofilament test performed at plantar aspects of 5 varied sites per foot shows sensation, reduced , B/L.?Vascular: ?DP PULSES:? 1/4, B/L.?PT PULSES:? /4, B/L.?TELANGECTASIA:?absent, B/L.?Nails: ?NAILS are:? Elongated, overgrown, dystrophic, lytic, greater than 3mm thick, discolored and friable with crumbly malodorous subungual debris, with dull to no pain on palpation due to neuropathy, 1-5 B/L.?Dermatologic: ?SKIN FINDINGS:?Skin exam reveals Keratotic lesion(s) located at, SUB MTH (s), 1, 2, B/L, Heel(s), B/L, Midfoot, Right.?General Examination: ?GENERAL APPEARANCE:?pleasant, alert, well nourished, well [...] as necessary. Patient chooses, no pharmaceutical tx (18624).?Keratoma Treatment:?Parring or Cutting of Benign Hyperkeratotic Lesion(s)?85954 (2-4 Lesions) - The Benign hyperkeratotic lesions, as described above were pared, and/or cut utilizing a sterile #15 blade, tissue nippers, and/or dremel.? * Procedure Codes:?79843 DEBRI DE NAIL, 6 OR MORE, Modifiers: XS 28245 TRIM SKIN LESIONS, 2 TO 4, Modifiers: XS * Follow Up:?2 Months * Images: * Sign off status: Completed true * Provider:?Zhang Luis DPM Date:? 024 Generated for Printi ng/Fabrigidag/eTransmitting on:?07/11/2024 09:17 AM EST History and Physical Notes * HPI (History of Present Illness) Category Sub-Category Detail Notes Category Not es Painful Nails Pt States Last PCP Visit: Date:: 10/24/2023 Skin problems Nature: Ulcer Location: Left , Heel/Rearfoot Duration: a few months Treatments: pt had sx right foot with Dr. Alfredo 02/14 At Risk footcare Pt States Last PCP Visit: Date: 4 Examination Category Sub-Category Detail Notes Category Not es Neurological SENSORY: Neurological exa m demonstrates, reduced light touch sensation, reduced vibration sensation, 5.07 monofilament test performed at plantar aspects of 5 varied sites per foot shows sensation, reduced , B/L Dermatologic SKIN FINDINGS: Skin exam reveal s Keratotic lesion(s) located at, SUB MTH (s), 1, 2, B/L, Heel(s), B/L, Midfoot, Right Orthopedic BUNION: Medially promine nt 1st MPJ, [...] Visual exam of foot performed:: Yes Date: 09/29/2023 Sensory testing performed:: sensations d iminished Pedal pulse taking performed:: 1+ ORIENTED: person,place, and ti me Ophthalmology Referral DIABETES EYE EXAM Diabetic Reti nopathy Screening:: Yes 06/16 Findings of Diabetic Eye Exam:: no retin opathy Vascular DP PULSES(B): 4, B/L PT PULSES(B): 07/28, B/L TELANGECTASIA: absent, B/L Nails NAILS are: Elongated, overg rown, dystrophic, lytic, greater than 3mm thick, discolored and friable with crumbly malodorous subungual debris, with dull to no pain on palpation due to neuropathy, 1-5 B/L
--- OUTSIDE RECORDS SUMMARY | 2024-07-11 09:18 | XMS_ITS ---
Author Organization [facility] Address [address] [place] [address] Care Team Providers Care Citrix Systems Administrator Name Role Phone Regulo CONKLIN, [facility] Primary Care Provider UnavailNi Banks Unavailable [phone] Zahng Luis [phone] REASON FOR VISIT Clinical Notes Encounters Encounter Location Date Provider Diagnosis [address] [address] 12/21/2023 Zhang Luis Plan Of Treatment Next Appt Details Provider Name:Ni duncan, 07/12/2024 09:45:00 AM, [address] [place], [address], Progress Notes * Quentin LARA SDOB:[birth year] (68 yo M)Acc No.[id number]:12/21/2023 Patient:?Quentin Lara :1955???Age:67 Y???Sex:Male Address:[address] [place], [address] * true * Date:? Generated for Printi ng/Faxing/eTransmitting on:?07/11/2024 09:17 AM EST
--- OUTSIDE RECORDS SUMMARY | 2024-07-11 09:18 | XMS_ITS | Data Portability ---
Author Organization [facility], Main Office Address [address] [facility] [address] [place] [address] Care Team Providers Care Relay Motorman Name Role Phone GLYNN HERNÁNDEZ Primary Care Provider SATHISH TORO Performance Improvement Director [phone] JACKY ROUSE Chair And Couch Maker [phone] KATIE NAVARRO Parts Order And Stock Clerk KATHE FITZPATRICK Tube Sizer Operator JESSICA MINAYA Infertility Nurse SEBASTIEN LINK Mine Promotor Assessment No assessment recorded. Plan of Treatment Reminders Order Date Submit Date Provider Last Modified By Organization Details Last Modified Time Details Appointments None recorded. Lab PSA, serum or plasma 2018 019 [facility], [address], [address], [place], [address], 9 15:15:17 BMP, serum or plasma 2018 019 [facility], [address], [address], [place], [address], 9 15:27:39 CBC w/ auto diff 2018 019 [facility], [address], [address], [place], [address], 9 13:47:02 iron + total iron-bind ing capacity (TIBC), serum 2018 019 [facility], [address], [address], [place], [address], 9 16:15:02 HbA1c (hemoglob in A1c), blood 2018 019 [facility], [address], [address], [place], [address], 9 22:55:14 ESR (erythroc yte sedimenta tion rate), blood 2018 019 [facility], [address], [address], [place], [address], 9 20:12:23 activated partial thrombopl astin time, coagulati on assay, blood 2018 019 [facility], [address], [address], [place], [address], 9 19:34:47 PT/INR 2018 019 [facility], [address], [address], [place], [address], 9 19:44:19 CMP, serum or plasma 2018 019 [facility], [address], [address], [place], [address], 9 19:58:54 CBC w/ auto diff 2018 019 [facility], [address], [address], [place], [address], 9 19:39:56 HbA1c (hemoglob in A1c), blood 2018 019 [facility], [address], [address], [place], [address], 9 22:21:53 CMP, serum or plasma 2018 019 [facility], [address], [address], [place], [address], 9 18:48:40 urinalysi s, complete 2018 019 [facility], [address], [address], [place], [address], 9 18:33:34 CBC w/ auto diff 2018 019 [facility], [address], [address], [place], [address], 9 18:49:41 hemoglobi n A1C, fingersti ck 2018 019 [email or web address] In-Office Order, Internal Use Only DO Not Attach Compendium DO Not Attach Compendium, Do Not Delete/merge, [id number] 9 16:07:07 HbA1c (hemoglob in A1c), blood 2018 019 [facility], [address], [address], [place], [address], 9 22:21:36 Referral nutrition ist/dieti aneudy referral 2018 019 KATHY Not available 9 16:40:32 diabetic ophthalmo logy referral 2018 019 KATHY Not available 9 17:39:39 gastroent erologist referral - for eval of pt with anemia and wt loss 2018 019 jeri Minaya MD, [address] [place], [address], 9 17:45:57 pain managemen t referral - for follow up on pt with chronic worsenign neuropath y 2018 019 [email or web address] [facility], [address] , [place], [address], 9 09:41:11 Procedures None recorded. Surgeries None recorded. Imaging None recorded. Medication Orders Nitrostat 0.4 mg sublingua l tablet 2018 019 INTERFACE [id number], [address] [facility], [place], [address], 9 10:55:03 mirtazapi ne 15 mg tablet 2018 019 berenice [facility], [address] [place] [address], [place], [address], 9 16:22:14 venlafaxi ne ER 75 mg capsule,e xtended release 24 hr 2018 019 farhanamberly [facility], [address] [place] [address], [place], [address], 9 11:06:36 mirtazapi ne 30 mg tablet 2018 019 INTERFACE [facility], [address] [facility], [place], [address], 9 09:37:51 venlafaxi ne ER 75 mg capsule,e xtended release 24 hr 2018 [facility] [address] [place] [address], [place], [address], 9 11:06:36 Lantus Solostar U-100 Insulin 100 unit/mL (3 mL) subcutane ous pen 2018 019 [email or web address] [facility], [address] [facility], [place], [address], 9 16:07:07 Patient Targets Encounter Date Encounter Id Patient Goals Patient Target Last Modified By Organization Details Last Modified Time 01/03/2019 [id number] Ongoing of Microalbumin/Cre atinine Ratio yearly Not available Not available Not available Ongoing of Blood Pressure Not available Not available Not available Ongoing of Hemoglobin A1C 2 times per yr Not available Not available Not available Ongoing of Hemoglobin A1C <7 Not available Not available Not available Ongoing of LDL Direct <100 Not available Not available Not available Ongoing of Cholesterol, LDL <100 Not available Not available Not available Pt advised and agrees to do moderate exercise (such as walking) for approximately 150 minutes per week; to decrease carbohydrate intake (25 % of total carbohydrates or less); and to monitor blood glucose as directed Will bring meter and/or readings to appointments. Patient preferences and goals incorporated in plan and updated/modified as needed to reflect progress toward goal. Not available 01/03/2019 16:07:20 Patient Instructions Encounter Date Encounter Id Patient Instructions Last Modified By Organization Details Last Modified Time 09/19/2018 [id number] Nutrition Referral and Weight Management Follow-up Information berenice Not available 09/19/2018 10:55:01 anemia: care instructions christaowski Not available 09/19/2018 10:55:01 10/20/2018 [id number] Diabetic Foot Exam awychowski Not available 10/20/2018 14:44:18 Diabetic Eye Exam awychowski Not available 10/20/2018 14:44:18 depression treatment: care instructions awychowski Not available 10/20/2018 14:44:18 anemia: care instructions awychowski Not available 10/20/2018 14:44:18 Alternate venlafaxine 150mg/75mg for 2 weeks after starting mirtazepine. If feeling fine go down to 75mg daily on the venlafaxine and continue with the mirtazepine until your next appt. berenice Not available 10/20/2018 14:49:41 11/17/2018 [id number] learning about type 2 diabetes nbarrows Not available 12/05/2018 09:37:50 type 2 diabetes: care instructions nbarrows Not available 12/05/2018 09:37:50 high blood pressure: care instructions awychowski Not available 11/17/2018 16:40:11 learning about high blood pressure awychowski Not available 11/17/2018 16:40:11 12/19/2018 [id number] depression treatment: care instructions awychowski Not available 12/19/2018 11:34:58 high blood pressure: care instructions awychowski Not available 12/19/2018 11:34:58 learning about high blood pressure awychowski Not available 12/19/2018 11:34:58 non fasting labs in 4 weeks. awychowski Not available 12/19/2018 11:34:56 01/03/2019 [id number] hypoglycemia: care instructions Not available 01/03/2019 16:07:07 Medications (OTC, herbal therapies, supplements) reviewed and reconciled with patient and or caregiver, including potential side effects, drug interactions, instructions, and the consequences of not taking medication. Reviewed potential barriers to medication adherence, such as side effects from medication or cost of medication. [email or web address] Not available 01/03/2019 14:22:39 Reason for Referral Vocal Music Instructor/dietitian Refer ral for Underweight Referring Physician: Glynn Hernández [facility], Encounter Date: 09/19/2018 Diabetic Ophthalmology Refer ral for Diabetic distal sensorimotor polyneuropathy Referring Physician: Glynn Hernández [facility], Encounter Date: 10/20/2018 Infertility Nurse Referral for Anemia for eval of pt with anemia and wt loss Referring Physician: Glynn Heránndez [facility], Encounter Date: 10/20/2018 Pain Management Referral for Diabetic distal sensorimotor polyneuropathy for follow up on pt with chronic worsenign neuropathy Referring Physician: Glynn Hernández [facility], Encounter Date: 11/17/2018 Results Created Date Observation Date Name Description Value Unit Range Abnormal Flag Note LastModifiedBy Organization Detail LastModifiedTime 08/22/1908/22/2018 CBC w/ auto diff WBC 8.6 K/mm3 (4.0-1 1.0) Not Available [facility] [address] [place], [address], 08/22/2018 15:48:49 08/22/1908/22/2018 CBC w/ auto diff RBC 3.29 M/mm3 (4.70- 6.10) low Not Available [facility] [address] [place], [address], 08/22/2018 15:48:49 08/22/1908/22/2018 CBC w/ auto diff HGB 10.7 gm/dL (13.7- 16.5) low Not Available [facility] [address] [place], [address], 08/22/2018 15:48:49 08/22/19 19 08/22/2018 CBC w/ auto diff HCT 33.9 % (40.5- 48.5) low Not Available [facility] [address] [place], [address], 08/22/2018 15:48:49 08/22/1908/22/2018 CBC w/ auto diff MCV 103.0 fL (80.0- 94.0) high Not Available [facility] [address] [place], [address], 08/22/2018 15:48:49 08/22/1908/22/2018 CBC w/ auto diff MCH 32.5 pg (27.0- 34.0) Not Available [facility] [address] [place], [address], 08/22/2018 15:48:49 08/22/1908/22/2018 CBC w/ auto diff MCHC 31.6 g/dL (33.0- 37.0) low Not Available [facility] [address] [place], [address], 08/22/2018 15:48:49 08/22/1908/22/2018 CBC w/ auto diff plt 221 K/mm3 (150-4 60) Not Available [facility] [address] [place], [address], 08/22/2018 15:48:49 08/22/1908/22/2018 CBC w/ auto diff RDW-SD 47.7 fL (<47.0 ) high Not Available [facility] [address] [place], [address], 08/22/2018 15:48:49 08/22/1908/22/2018 CBC w/ auto diff MPV 11.3 fL (9.4-1 2.4) Not Available [facility] [address], [address], 08/22/2018 15:48:49 08/22/19 19 08/22/2018 CBC w/ auto diff automated NRBC 0.0 #/100 _WBC' s Not Available [facility] [address] [place], [address], 08/22/2018 15:48:49 08/22/19 19 08/22/2018 CBC w/ auto diff abs. NRBC 0.0 K/mm3 Not Available [facility] [address] [place], [address], 08/22/2018 15:48:49 08/22/1908/22/2018 CBC w/ auto diff neut # 5.7 K/mm3 (1.3-7 .0) [facility] [address] [place], [address], 08/22/2018 15:48:49 08/22/1908/22/2018 CBC w/ auto diff lymph # 2.0 K/mm3 (0.8-3 .1) Not [facility] [address] [place], [address], 08/22/2018 15:48:49 08/22/1908/22/2018 CBC w/ auto diff mono# 0.7 K/mm3 (0.4-1 .3) Not [facility] [address] [place], [address], 08/22/2018 15:48:49 08/22/1908/22/2018 CBC w/ auto diff eo # 0.1 K/mm3 (0.0-0 .4) Not [facility] [address] [place], [address], 08/22/2018 15:48:49 08/22/1908/22/2018 CBC w/ auto diff baso # 0.0 K/mm3 (0.0-0 .1) Not [facility] [address] [place], [address], 08/22/2018 15:48:49 08/22/19 19 08/22/2018 CBC w/ auto diff abs. imm gran 0.1 K/mm3 Not Available [facility] [address] [place], [address], 08/22/2018 15:48:49 08/22/19 19 08/22/2018 CBC w/ auto diff neut 66.5 % (44-76 ) Not Available [facility] [address] [place], [address], 08/22/2018 15:48:49 08/22/1908/22/2018 CBC w/ auto diff lymph 23.6 % (15-43 ) Not Available [facility] [address] [place], [address], 08/22/2018 15:48:49 08/22/1908/22/2018 CBC w/ auto diff monocyte 8.0 % (4.5-1 0.5) Not Available [facility] [address] [place], [address], 08/22/2018 15:48:49 08/22/1908/22/2018 CBC w/ auto diff eo 0.8 % (0-6) Not Available [facility] [address] [place], [address], 08/22/2018 15:48:49 08/22/1908/22/2018 CBC w/ auto diff baso 0.5 % (0-2) Not Available [facility] [address] [place], [address], 08/22/2018 15:48:49 08/22/1908/22/2018 CBC w/ auto diff imm gran 0.6 % (0.0-0 .6) Not Available [facility] [address] [place], [address], 08/22/2018 15:48:49 08/22/192019 urina lysis , compl ete appear/color YELLO W CLEAR Not Available [facility] [address] [place], [address], 08/22/2018 16:10:56 08/22/19 19 08/22/2018 urina lysis , compl ete sp. gravity 1.025 (1.002 -1.030 ) Not Available [facility] [address] [place], [address], 08/22/2018 16:10:56 08/22/19 19 08/22/2018 urina lysis , compl ete urine pH 6.0 (4.0-8 .0) Not Available [facility] [address] [place], [address], 08/22/2018 16:10:56 08/22/19 19 08/22/2018 urina lysis , compl ete urine albumin 1+ (neg) abnormal Not Available [facility] [address] [place], [address], 08/22/2018 16:10:56 08/22/19 19 08/22/2018 urina lysis , compl ete urine glucose 3+ (neg) abnormal Not Available [facility] [address] [place], [address], 08/22/2018 16:10:56 08/22/19 19 08/22/2018 urina lysis , compl ete urine ketones NEGATI VE (neg) Not Available [facility] [address] [place], [address], 08/22/2018 16:10:56 08/22/19 19 08/22/2018 urina lysis , compl ete urine bilirubin NEGATI VE (neg) Not Available [facility] [address] [place], [address], 08/22/2018 16:10:56 08/22/19 19 08/22/2018 urina lysis , compl ete urine hemoglobn NEGATI VE (neg) Not Available [facility] [address] [place], [address], 08/22/2018 16:10:56 08/22/19 19 08/22/2018 urina lysis , compl ete urine nitrite NEGATI VE (neg) Not Available [facility] [address] [place], [address], 08/22/2018 16:10:56 08/22/19 19 08/22/2018 urina lysis , compl ete urine leukocyte NEGATI VE (neg) Not Available [facility] [address], [address], 08/22/2018 16:10:56 08/22/19 19 08/22/2018 urina lysis , compl ete urobilinogen NORMAL mg/dL (norm) Not Available [facility] [address] [place], [address], 08/22/2018 16:10:56 08/22/19 19 08/22/2018 urina lysis , compl ete urine WBC's 1 /hpf (0-5) Not Available [facility] [address] [place], [address], 08/22/2018 16:10:56 08/22/1908/22/2018 urina lysis , compl ete urine RBC's <1 /hpf (<3) Not Available [facility] [address] [place], [address], 08/22/2018 16:10:56 08/22/19 19 08/22/2018 urina lysis , compl ete bacteria SLIGHT hpf (neg) abnormal Not Available [facility] [address] [place], [address], 08/22/2018 16:10:56 08/22/1908/22/2018 urina lysis , compl ete squamous epith <1 /hpf Not Available [facility] [address] [place], [address], 08/22/2018 16:10:56 08/22/19 19 08/22/2018 urina lysis , compl ete hyaline cast 2 lpf (0-2) Not Available [facility] [address] [place], [address], 08/22/2018 16:10:56 08/22/19 19 08/22/2018 micro album in, urine micro-albumi n <6.0 mg/L (0-20) Not Available [facility] [address] [place], [address], 08/22/2018 17:17:43 08/22/19 19 08/22/2018 micro album in, urine malb/creat ratio <3.6 mg/gm (0-20) Micro album in less than detec tion limit , ratio estim ated using micro album in equal to 6.0 mg/L. Not Available [facility] [address] [place], [address], 08/22/2018 17:17:43 08/22/19 19 08/22/2018 micro album in, urine urine creat for micro albumin 168.2 mg/dL Not Available [facility] [address] [place], [address], 08/22/2018 17:17:43 08/22/19 19 08/22/2018 amyla se, serum or plasm a amylase 59 U/L (28-10 0) Not Available [facility] [address] [place], [address], 08/22/2018 17:48:43 08/22/1908/22/2018 lipas e, serum or plasm a lipase 9 U/L (13-60 ) low Not Available [facility] [address] [place], [address], 08/22/2018 17:48:44 08/22/1908/22/2018 lipid panel , serum cholesterol, total 133 mg/dL (<200) Not Available [facility] [address] [place], [address], 08/22/2018 17:48:45 08/22/192019 lipid panel , serum triglyceride 126 mg/dL (<150) Not Available [facility] [address] [place], [address], 08/22/2018 17:48:45 08/22/19 19 08/22/2018 lipid panel , serum HDL chol 79 mg/dL (>39) Not Available [facility] [address] [place], [address], 08/22/2018 17:48:45 08/22/1908/22/2018 lipid panel , serum LDL cholesterol, calculated 29 mg/dL (0-130 ) Not Available [facility] [address] [place], [address], 08/22/2018 17:48:45 08/22/1908/22/2018 lipid panel , serum non HDL cholesterol (calc) 54 mg/dL (<160) Not Available [facility] [address] [place], [address], 08/22/2018 17:48:45 08/22/1908/22/2018 preal bumin , serum prealbumin 22.8 mg/dL (20-40 ) Not Available [facility] [address] [place], [address], 08/22/2018 17:48:46 08/22/1908/22/2018 TSH, serum or plasm a TSH 1.28 mIU/m L (0.40- 4.00) Not Available [facility] [address] [place], [address], 08/22/2018 17:53:49 08/22/1908/22/2018 vitam in B12, serum vitamin B12 916 pg/mL (232-1 245) As of 2017 vitam in B12 assay formu lat n has been modif ied. As a resul t, the new refer ence range is (232- 1245 pg/mL ). Not Available [facility] [address] [place], [address], 08/22/2018 18:00:45 09/19/19 19 09/19/2018 CBC w/ auto diff WBC 7.5 K/mm3 (4.0-1 1.0) Not Available [facility] [address] [place], [address], 09/19/2018 13:47:02 09/19/19 19 09/19/2018 CBC w/ auto diff RBC 3.53 M/mm3 (4.70- 6.10) low Not Available [facility] [address] [place], [address], 09/19/2018 13:47:02 09/19/19 19 09/19/2018 CBC w/ auto diff HGB 11.7 gm/dL (13.7- 16.5) low Not Available [facility] [address] [place], [address], 09/19/2018 13:47:02 09/19/19 19 09/19/2018 CBC w/ auto diff HCT 34.7 % (40.5- 48.5) low Not Available [facility] [address] [place], [address], 09/19/2018 13:47:02 09/19/19 19 09/19/2018 CBC w/ auto diff MCV 98.3 fL (80.0- 94.0) high Not Available [facility] [address] [place], [address], 09/19/2018 13:47:02 09/19/19 19 09/19/2018 CBC w/ auto diff MCH 33.1 pg (27.0- 34.0) Not Available [facility] [address] [place], [address], 09/19/2018 13:47:02 09/19/19 19 09/19/2018 CBC w/ auto diff MCHC 33.7 g/dL (33.0- 37.0) Not Available [facility] [address] [place], [address], 09/19/2018 13:47:02 09/19/19 19 09/19/2018 CBC w/ auto diff plt 250 K/mm3 (150-4 60) Not Available [facility] [address] [place], [address], 09/19/2018 13:47:02 09/19/19 19 09/19/2018 CBC w/ auto diff RDW-SD 46.1 fL (<47.0 ) Not Available [facility] [address] [place], [address], 09/19/2018 13:47:02 09/19/19 19 09/19/2018 CBC w/ auto diff MPV 11.1 fL (9.4-1 2.4) Not Available [facility] [address] [place], [address], 09/19/2018 13:47:02 09/19/19 19 09/19/2018 CBC w/ auto diff automated NRBC 0.0 #/100 _WBC' s Not Available [facility] [address] [place], [address], 09/19/2018 13:47:02 09/19/19 19 09/19/2018 CBC w/ auto diff abs. NRBC 0.0 K/mm3 [facility] [address] [place], [address], 09/19/2018 13:47:02 09/19/19 19 09/19/2018 PSA, serum or plasm a PSA 1.4 NG/mL (0-4) TEST PERFO RMED USING THE VETO ELECT M. STEVES [employer] CENCE TOTAL PSA ASSAY . PSA VALUE S OBTAI DARYN WITH OTHER ASSAY METHO DS OR KITS CANNO T BE USED INTER WILL EABLY . Not Available [facility] [address] [place], [address], 09/19/2018 15:15:17 09/19/19 19 09/19/2018 BMP, serum or plasm a glucose 498 mg/dL (70-99 ) high Not Available [facility] [address] [place], [address], 09/19/2018 15:27:39 09/19/19 19 09/19/2018 BMP, serum or plasm a BUN 14 mg/dL (8-23) Not Available [facility] [address] [place], [address], 09/19/2018 15:27:39 09/19/19 19 09/19/2018 BMP, serum or plasm a creatinine 1.6 mg/dL (0.7-1 .2) high Not Available [facility] [address] [place], [address], 09/19/2018 15:27:39 09/19/19 19 09/19/2018 BMP, serum or plasm a sodium 129 mmol/ L (133-1 45) low Not Available [facility] [address] [place], [address], 09/19/2018 15:27:39 09/19/19 19 09/19/2018 BMP, serum or plasm a potassium 4.0 mmol/ L (3.6-5 .2) Not Available [facility] [address] [place], [address], 09/19/2018 15:27:39 09/19/19 19 09/19/2018 BMP, serum or plasm a chloride 86 mmol/ L (98-10 7) low Not Available [facility] [address] [place], [address], 09/19/2018 15:27:39 09/19/19 19 09/19/2018 BMP, serum or plasm a bicarbonate 29 mmol/ L (22-29 ) Not Available [facility] [address] [place], [address], 09/19/2018 15:27:39 09/19/1909/19/2018 BMP, serum or plasm a anion gap 14 (4-17) Not Available [facility] [address] [place], [address], 09/19/2018 15:27:39 09/19/1909/19/2018 BMP, serum or plasm a calcium 9.4 mg/dL (8.6-1 0.5) Not Available [facility] [address] [place], [address], 09/19/2018 15:27:39 09/19/19 19 09/19/2018 BMP, serum or plasm a est GFR non 45 mL/mi n/1.7 3_M2 Creat inine based estim ated glome rular filtr ation rate (eGFR ) is calcu lated using the Chron ic Kidne y Disea se Epide miolo gy Colla borat ion (CKD- EPI). The CKD-E PI creat inine equat ion has not been valid ated in child soila (<18 years ), pregn ant women or in some racia l or ethni c subgr oups other than Cauca sians and Afric an Ameri cans. Not Available [facility] [address] [place], [address], 09/19/2018 15:27:39 09/19/1909/19/2018 BMP, serum or plasm a est GFR 53 mL/mi n/1.7 3_M2 Creat inine based estim ated glome rular filtr ation rate (eGFR ) is calcu lated using the Chron ic Kidne y Disea se Epide miolo gy Colla borat ion (CKD- EPI). The CKD-E PI creat inine equat ion has not been valid ated in child soila (<18 years ), pregn ant women or in some racia l or ethni c subgr oups other than Cauca sians and Afric an Ameri cans. Not Available [facility] [address] [place], [address], 09/19/2018 15:27:39 09/19/1909/19/2018 iron + total iron- alaina ng capac ity (TIBC ), serum iron 149 mcg/d L (45-16 0) Not Available [facility] [address] [place], [address], 09/19/2018 16:15:02 09/19/19 19 09/19/2018 iron + total iron- alaina ng capac ity (TIBC ), serum unsaturated iron binding capac 78 mcg/d L (110-3 70) low Not Available [facility] [address] [place], [address], 09/19/2018 16:15:02 09/19/19 19 09/19/2018 iron + total iron- alaina ng capac ity (TIBC ), serum est T. iron bind capacity 227 mcg/d L (155-5 30) Not Available [facility] [address] [place], [address], 09/19/2018 16:15:02 09/19/19 19 09/19/2018 iron + total iron- alaina ng capac ity (TIBC ), serum % iron saturation 66 % (20-55 ) high Not Available [facility] [address] [place], [address], 09/19/2018 16:15:02 10/21/19 19 10/20/2018 activ ated parti al throm bopla stin time, coagu latio n assay , blood APTT 26.5 sec (24.3- 33.1) Not Available [facility] [address] [place], [address], 10/20/2018 19:34:47 10/21/19 19 10/20/2018 CBC w/ auto diff WBC 6.9 K/mm3 (4.0-1 1.0) Not Available [facility] [address] [place], [address], 10/20/2018 19:39:56 10/21/19 19 10/20/2018 CBC w/ auto diff RBC 2.95 M/mm3 (4.70- 6.10) low Not Available [facility] [address] [place], [address], 10/20/2018 19:39:56 10/21/19 19 10/20/2018 CBC w/ auto diff HGB 9.9 gm/dL (13.7- 16.5) low Not Available [facility] [address] [place], [address], 10/20/2018 19:39:56 10/21/19 19 10/20/2018 CBC w/ auto diff HCT 31.8 % (40.5- 48.5) low Not Available [facility] [address] [place], [address], 10/20/2018 19:39:56 10/21/19 19 10/20/2018 CBC w/ auto diff MCV 107.8 fL (80.0- 94.0) high Not Available [facility] [address] [place], [address], 10/20/2018 19:39:56 10/21/19 19 10/20/2018 CBC w/ auto diff MCH 33.6 pg (27.0- 34.0) Not Available [facility] [address] [place], [address], 10/20/2018 19:39:56 10/21/19 19 10/20/2018 CBC w/ auto diff MCHC 31.1 g/dL (33.0- 37.0) low Not Available [facility] [address] [place], [id number], 10/20/2018 19:39:56 10/21/19 19 10/20/2018 CBC w/ auto diff plt 213 K/mm3 (150-4 60) Not Available [facility] [address] [place], [id number], 10/20/2018 19:39:56 10/21/19 19 10/20/2018 CBC w/ auto diff RDW-SD 56.2 fL (<47.0 ) high Not Available [facility] [address] [place], [address], 10/20/2018 19:39:56 10/21/19 19 10/20/2018 CBC w/ auto diff MPV 10.6 fL (9.4-1 2.4) Not Available [facility] [address] [place], [address], 10/20/2018 19:39:56 10/21/19 19 10/20/2018 CBC w/ auto diff automated NRBC 0.0 #/100 _WBC' s Not Available [facility] [address] [place], [address], 10/20/2018 19:39:56 10/21/19 19 10/20/2018 CBC w/ auto diff abs. NRBC 0.0 K/mm3 Not Available [facility] [address] [place], [address], 10/20/2018 19:39:56 10/21/19 19 10/20/2018 PT/IN R protime 10.5 sec (9.7-1 2.2) Not Available [facility] [address] [place], [address], 10/20/2018 19:44:19 10/21/19 19 10/20/2018 PT/IN R internatnl normalized ratio 1.0 (0.9-1 .1) SUGGE STED VALUE OF 2.0-3 .0 FOR PROPH YLAXI S OF VENOU S THROM BOSIS IN HIGH RISK OR SURGI CHINO PATIE NTS, TREAT MENT OF VENOU S THROM BOSIS , AND PREVE NTION OF EMBOL ISM. SUGGE STED VALUE S OF 2.5-3 .5 FOR PREVE NTION OF RECUR RENT EMBOL ISM OR PATIE NTS WITH MECHA NICAL PROST HETIC HEART VALVE S. Not Available [facility] [address] [place], [address], 10/20/2018 19:44:19 10/21/19 19 10/20/2018 CMP, serum or plasm a glucose 267 mg/dL (70-99 ) high Not Available [facility] [address] [place], [address], 10/20/2018 19:58:54 10/21/19 19 10/20/2018 CMP, serum or plasm a BUN 13 mg/dL (8-23) Not Available [facility] [address] [place], [address], 10/20/2018 19:58:54 10/21/19 19 10/20/2018 CMP, serum or plasm a creatinine 1.4 mg/dL (0.7-1 .2) high Not Available [facility] [address] [place], [address], 10/20/2018 19:58:54 10/21/19 19 10/20/2018 CMP, serum or plasm a sodium 138 mmol/ L (133-1 45) Not Available [facility] [address] [place], [address], 10/20/2018 19:58:54 10/21/19 19 10/20/2018 CMP, serum or plasm a potassium 5.3 mmol/ L (3.6-5 .2) high Not Available [facility] [address] [place], [address], 10/20/2018 19:58:54 10/21/19 19 10/20/2018 CMP, serum or plasm a chloride 104 mmol/ L (98-10 7) Not Available [facility] [address] [place], [address], 10/20/2018 19:58:54 10/21/1910/20/2018 CMP, serum or plasm a bicarbonate 25 mmol/ L (22-29 ) Not Available [facility] [address] [place], [address], 10/20/2018 19:58:54 10/21/1910/20/2018 CMP, serum or plasm a anion gap 9 (4-17) Not Available [facility] [address] [place], [address], 10/20/2018 19:58:54 10/21/1910/20/2018 CMP, serum or plasm a albumin 3.7 gm/dL (3.4-4 .8) Not Available [facility] [address] [place], [address], 10/20/2018 19:58:54 10/21/19 19 10/20/2018 CMP, serum or plasm a calcium 8.7 mg/dL (8.6-1 0.5) Not Available [facility] [address] [place], [address], 10/20/2018 19:58:54 10/21/19 19 10/20/2018 CMP, serum or plasm a bilirubin,to srinivas 0.2 mg/dL (0-1.2 ) Not Available [facility] [address] [place] [address], 10/20/2018 19:58:54 10/21/19 19 10/20/2018 CMP, serum or plasm a total protein 6.1 gm/dL (6.2-8 .2) low Not Available [facility] [address] [place], [address], 10/20/2018 19:58:54 10/21/1910/20/2018 CMP, serum or plasm a Ag ratio 1.5 Not Available [facility] [address] [place], [address], 10/20/2018 19:58:54 10/21/1910/20/2018 CMP, serum or plasm a AST 27 U/L (0-38) Not Available [facility] [address] [place], [address], 10/20/2018 19:58:54 10/21/1910/20/2018 CMP, serum or plasm a alk phos 59 U/L (40-12 9) Not Available [facility] [address] [place] [address], 10/20/2018 19:58:54 10/21/1910/20/2018 CMP, serum or plasm a ALT 27 U/L (0-41) Not Available [facility] [address] [place], [address], 10/20/2018 19:58:54 10/21/19 19 10/20/2018 CMP, serum or plasm a est GFR non 53 mL/mi n/1.7 3_M2 Creat inine based estim ated glome rular filtr ation rate (eGFR ) is calcu lated using the Chron ic Kidne y Disea se Epide miolo gy Colla borat ion (CKD- EPI). The CKD-E PI creat inine equat ion has not been valid ated in child soila (<18 years ), pregn ant women or in some racia l or ethni c subgr oups other than Cauca sians and Afric an Ameri cans. Not Available [facility] [address], [place], [address], 10/20/2018 19:58:54 10/21/1910/20/2018 CMP, serum or plasm a est GFR 62 mL/mi n/1.7 3_M2 Creat inine based estim ated glome rular filtr ation rate (eGFR ) is calcu lated using the Chron ic Kidne y Disea se Epide miolo gy Colla borat ion (CKD- EPI). The CKD-E PI creat inine equat ion has not been valid ated in child soila (<18 years ), pregn ant women or in some racia l or ethni c subgr oups other than Cauca sians and Afric an Ameri cans. Not Available [facility] [address], [place], [address], 10/20/2018 19:58:54 10/21/1910/20/2018 ESR (eryt hrocy te sedim entat ion rate) , blood sedimentatio n rate,automat ed 8 mm/HR (0-15) In rare patie nts with multi ple myelo ma and other cance rs,Er ythro cyte Sedim entat ion Rate( ESR) by our curre nt metho d(iSE D)can be wilfredo l. If clini natasha relev ant,p lease use C-david ctive prote in as an equiv alent measu re of acute phase react ion in these patie nts. Not Available [facility] [address] [place], [address], 10/20/2018 20:12:23 10/21/19 19 10/20/2018 HbA1c (hemo globi n A1c), blood hemoglobin A1C 9.8 % (4-6) high HEMOG LOBIN A1C(% ) GLUCO SE CONTR OL INDEX <6% EXCEL LENT 6-7% VERY GOOD 7-8% GOOD 8-10% FAIR >10% POOR Hemog lobin (Hb) A1c testi ng is perfo rmed by Veto Chrissy- quant immun oassa y. Any cause of short ened eryth rocyt e survi huey will reduc e expos ure of eryth rocyt es to gluco se with a conse quent decre ase in Hb A1c (%). Not Available [facility] [address] [place], [address], 10/20/2018 22:55:14 11/24/19 19 11/23/2018 CBC w/ auto diff WBC 5.9 Not Available Not Availa ble 12/25/2018 15:55:47 11/24/19 19 11/23/2018 CBC w/ auto diff RBC 3.59 Not Available Not Availa ble 12/25/2018 15:55:47 11/24/19 19 11/23/2018 CBC w/ auto diff HGB 11.8 Not Available Not Availa ble 12/25/2018 15:55:47 11/24/19 19 11/23/2018 CBC w/ auto diff HCT 38.9 Not Available Not Availa ble 12/25/2018 15:55:47 11/24/1911/23/2018 CBC w/ auto diff plt 195 Not Available Not Availa ble 12/25/2018 15:55:47 01/04/2001/03/2019 urina lysis , compl ete appear/color YELLO W CLEAR Not Available [facility] [address] [place], [address], 01/03/2019 18:33:34 01/04/2001/03/2019 urina lysis , compl ete sp. gravity 1.018 (1.002 -1.030 ) Not Available [facility] [address] [place], [address], 01/03/2019 18:33:34 01/04/20 19 01/03/2019 urina lysis , compl ete urine pH 5.0 (5.0-8 .0) Not Available [facility] [address] [place], [address], 01/03/2019 18:33:34 01/04/20 19 01/03/2019 urina lysis , compl ete urine albumin 1+ (neg) abnormal Not Available [facility] [address] [place], [address], 01/03/2019 18:33:34 01/04/20 19 01/03/2019 urina lysis , compl ete urine glucose 2+ (neg) abnormal Not Available [facility] [address] [place], [address], 01/03/2019 18:33:34 01/04/20 19 01/03/2019 urina lysis , compl ete urine ketones NEGATI VE (neg) Not Available [facility] [address] [place], [address], 01/03/2019 18:33:34 01/04/20 19 01/03/2019 urina lysis , compl ete urine bilirubin NEGATI VE (neg) Not Available [facility] [address] [place], [address], 01/03/2019 18:33:34 01/04/20 19 01/03/2019 urina lysis , compl ete urine hemoglobin NEGATI VE (neg) Not Available [facility] [address] [place], [address], 01/03/2019 18:33:34 01/04/20 19 01/03/2019 urina lysis , compl ete urine nitrite NEGATI VE (neg) Not Available [facility] [address] [place], [address], 01/03/2019 18:33:34 01/04/20 19 01/03/2019 urina lysis , compl ete urine leukocyte NEGATI VE (neg) Not Available [facility] [address] [place], [address], 01/03/2019 18:33:34 01/04/20 19 01/03/2019 urina lysis , compl ete urobilinogen NORMAL mg/dL (norm) Not Available [facility] [address] [place], [address], 01/03/2019 18:33:34 01/04/20 19 01/03/2019 urina lysis , compl ete urine WBC's 1 /hpf (0-5) Not Available [facility] [address] [place], [address], 01/03/2019 18:33:34 01/04/20 19 01/03/2019 urina lysis , compl ete urine RBC's 2 /hpf (<3) Not Available [facility] [address] [place], [address], 01/03/2019 18:33:34 01/04/20 19 01/03/2019 urina lysis , compl ete mucus SLIGHT /lpf Not Available [facility] [address] [place], [address], 01/03/2019 18:33:34 01/04/20 19 01/03/2019 CMP, serum or plasm a glucose 134 mg/dL (70-99 ) high Not Available [facility] [address] [place], [address], 01/03/2019 18:48:40 01/04/20 19 01/03/2019 CMP, serum or plasm a BUN 20 mg/dL (8-23) Not Available [facility] [address] [place], [address], 01/03/2019 18:48:40 01/04/20 19 01/03/2019 CMP, serum or plasm a creatinine 1.5 mg/dL (0.7-1 .2) high Not Available [facility] [address] [place], [address], 01/03/2019 18:48:40 01/04/2001/03/2019 CMP, serum or plasm a sodium 140 mmol/ L (133-1 45) Not Available [facility] [address] [place], [address], 01/03/2019 18:48:40 01/04/2001/03/2019 CMP, serum or plasm a potassium 5.1 mmol/ L (3.6-5 .2) Not Available [facility] [address] [place], [address], 01/03/2019 18:48:40 01/04/2001/03/2019 CMP, serum or plasm a chloride 108 mmol/ L (98-10 7) high Not Available [facility] [address] [place], [address], 01/03/2019 18:48:40 01/04/2001/03/2019 CMP, serum or plasm a bicarbonate 26 mmol/ L (22-29 ) Not Available [facility] [address] [place], [address], 01/03/2019 18:48:40 01/04/2001/03/2019 CMP, serum or plasm a anion gap 6 (4-17) Not Available [facility] [address] [place], [address], 01/03/2019 18:48:40 01/04/2001/03/2019 CMP, serum or plasm a albumin 4.0 gm/dL (3.4-4 .8) Not Available [facility] [address] [place], [address], 01/03/2019 18:48:40 01/04/2001/03/2019 CMP, serum or plasm a calcium 9.0 mg/dL (8.6-1 0.5) Not Available [facility] [address] [place], [address], 01/03/2019 18:48:40 01/04/2001/03/2019 CMP, serum or plasm a bilirubin,to srinivas 0.2 mg/dL (0-1.2 ) Not Available [facility] [address] [place], [address], 01/03/2019 18:48:40 01/04/20 19 01/03/2019 CMP, serum or plasm a total protein 6.3 gm/dL (6.2-8 .2) Not Available [facility] [address] [place], [address], 01/03/2019 18:48:40 01/04/20 19 01/03/2019 CMP, serum or plasm a Ag ratio 1.7 Not Available [facility] [address] [place], [address], 01/03/2019 18:48:40 01/04/20 19 01/03/2019 CMP, serum or plasm a AST 28 U/L (0-38) Not Available [facility] [address] [place], [address], 01/03/2019 18:48:40 01/04/20 19 01/03/2019 CMP, serum or plasm a alk phos 75 U/L (40-12 9) Not Available [facility] [address] [place], [address], 01/03/2019 18:48:40 01/04/20 19 01/03/2019 CMP, serum or plasm a ALT 23 U/L (0-41) Not Available [facility] [address] [place], [address], 01/03/2019 18:48:40 01/04/20 19 01/03/2019 CMP, serum or plasm a est GFR non 49 mL/mi n/1.7 3_M2 Creat inine based estim ated glome rular filtr ation rate (eGFR ) is calcu lated using the Chron ic Kidne y Disea se Epide miolo gy Colla borat ion (CKD- EPI). The CKD-E PI creat inine equat ion has not been valid ated in child soila (<18 years ), pregn ant women or in some racia l or ethni c subgr oups other than Cauca sians and Afric an Ameri cans. Not Available [facility] [address] [place], [address], 01/03/2019 18:48:40 01/04/20 19 01/03/2019 CMP, serum or plasm a est GFR 57 mL/mi n/1.7 3_M2 Creat inine based estim ated glome rular filtr ation rate (eGFR ) is calcu lated using the Chron ic Kidne y Disea se Epide miolo gy Colla borat ion (CKD- EPI). The CKD-E PI creat inine equat ion has not been valid ated in child soila (<18 years ), pregn ant women or in some racia l or ethni c subgr oups other than Cauca sians and Afric an Ameri cans. Not Available [facility] [address] [place], [address], 01/03/2019 18:48:40 01/04/20 19 01/03/2019 CBC w/ auto diff WBC 6.6 K/mm3 (4.0-1 1.0) Not Available [facility] [address] [place], [address], 01/03/2019 18:49:41 01/04/20 19 01/03/2019 CBC w/ auto diff RBC 3.56 M/mm3 (4.70- 6.10) low Not Available [facility] [address] [place], [address], 01/03/2019 18:49:41 01/04/20 19 01/03/2019 CBC w/ auto diff HGB 11.8 gm/dL (13.7- 17.1) low Not Available [facility] [address] [place], [address], 01/03/2019 18:49:41 01/04/20 19 01/03/2019 CBC w/ auto diff HCT 36.2 % (40.5- 50.0) low Not Available [facility] [address] [place], [address], 01/03/2019 18:49:41 01/04/20 19 01/03/2019 CBC w/ auto diff MCV 101.7 fL (80.0- 94.0) high Not Available [facility] [address] [place], [address], 01/03/2019 18:49:41 01/04/2001/03/2019 CBC w/ auto diff MCH 33.1 pg (27.0- 34.0) Not Available [facility] [address] [place], [address], 01/03/2019 18:49:41 01/04/2001/03/2019 CBC w/ auto diff MCHC 32.6 g/dL (33.0- 37.0) low Not Available [facility] [address] [place], [address], 01/03/2019 18:49:41 01/04/2001/03/2019 CBC w/ auto diff plt 168 K/mm3 (150-4 60) Not Available [facility] [address] [place], [address], 01/03/2019 18:49:41 01/04/2001/03/2019 CBC w/ auto diff RDW-SD 45.4 fL (<47.0 ) Not Available [facility] [address] [place], [address], 01/03/2019 18:49:41 01/04/2001/03/2019 CBC w/ auto diff MPV 10.8 fL (9.4-1 2.4) Not Available [facility] [address] [place], [address], 01/03/2019 18:49:41 01/04/2001/03/2019 CBC w/ auto diff automated NRBC 0.0 #/100 _WBC' s Not Available [facility] [address] [place], [address], 01/03/2019 18:49:41 01/04/20 19 01/03/2019 CBC w/ auto diff abs. NRBC 0.0 K/mm3 Not Available [facility] [address] [place], [address], 01/03/2019 18:49:41 01/04/20 19 01/03/2019 HbA1c (hemo globi n A1c), blood hemoglobin A1C 6.5 % (4-6) high HEMOG LOBIN A1C(% ) GLUCO SE CONTR OL INDEX <6% EXCEL LENT 6-7% VERY GOOD 7-8% GOOD 8-10% FAIR >10% POOR Hemog lobin (Hb) A1c testi ng is perfo rmed by Veto Chrissy- quant immun oassa y. Any cause of short ened eryth rocyt e survi huey will reduc e expos ure of eryth rocyt es to gluco se with a conse quent decre ase in Hb A1c (%). Not Available [facility] [address], [place], [address], 01/03/2019 22:21:36 01/04/20 19 01/03/2019 HbA1c (hemo globi n A1c), blood hemoglobin A1C 6.5 % (4-6) high HEMOG LOBIN A1C(% ) GLUCO SE CONTR OL INDEX <6% EXCEL LENT 6-7% VERY GOOD 7-8% GOOD 8-10% FAIR >10% POOR Hemog lobin (Hb) A1c testi ng is perfo rmed by Veto Chrissy- quant immun oassa y. Any cause of short ened eryth rocyt e survi huey will reduc e expos ure of eryth rocyt es to gluco se with a conse quent decre ase in Hb A1c (%). Not Available [facility] [address] [place], [address], 01/03/2019 22:21:53 01/04/2001/03/2019 hemog lobin A1C, finge rstic k HbA1c 6.7% Not Available In-Office Order Internal Use Only DO Not Attach Compendium DO Not Attach Compendium, Do Not Delete/merge, [id number] 01/03/2019 14:43:15 09/08/19 19 09/08/2018 XR, chest , 2 view Chest 2 Views Fronta l and Lat INDICA TION/C LINICA L QUESTI ON: Abnorm al weight loss. COMPAR MINGO: Multip le priors , most recent from 12/24/19 17. FINDIN GS: LINES AND TUBES: None. LUNGS AND PLEURA : Clear lungs. Normal pulmon jonelle vascul ature. Blunti ng left costop hrenic angle likely relate d to pleura l reflec tion, unchan ged. No pleura l effusi on. No pneumo thorax . HEART, MEDIAS TINUM AND FENG: Heart is normal in size. Normal medias tinal and hilar contou r. BONES AND SOFT TISSUE S: No acute abnorm ality. Sterno dara wires are in place. Multip le surgic al clips along the left cardia c margin and medias tinum. IMPRES KALI: No radiog raphic active cardio pulmon jonelle diseas e. I have person ally review ed the images and I agree with this report . WSN: [id number] Dictat ed By: Sherwin Malcolm MD Dictat ed Date/T gerri: 11:08 a Review ed By: Nohemy CONKLIN, Henry Kiran Signed By: Henry Slater MD Signed Date/T gerri: 11:13 am Transc ribed By: ANNY Transc ribed Date/T gerri: 10:39 am Patien t Class: Outpat ient [facility] (Outpt Imaging) [address] [place], [address], 09/19/2018 10:45:52 09/14/19 19 09/14/2018 US, abdom en, compl ete US Abdome n Comp INDICA TION/C LINICA L QUESTI ON: R63.4 UNINTE NTIONA L WT LOSS OCCULT ABDOMI NAL MALIGN RICHARD./ Other: . COMPAR MINGO: Ultras ound, 02/26/20 13. FINDIN GS: Liver: Mildly echoge jamin parenc hyma. No focal lesion is seen. Portal vein demons trates normal direct ion of flow. Gallbl adder: No gallst ones. Normal wall thickn ess. No perich olecys tic fluid. Negati ve Morales sign. Biliar y Tree: No intrah epatic or extrah epatic bile duct dilati on is identi fied. Common duct: 0.4 cm. Pancre as: Obscur ed by overly ing bowel gas. Spleen : Normal in size and echote xture. Right kidney : Normal parenc hymal echote xture and thickn ess. No hydron ephros is, stone or mass. Left kidney : Normal parenc hymal echote xture and thickn ess. No hydron ephros is, stone or mass. Small parape lvic cysts are sugges melissa in the lower pole. Aorta: Athero sclero tic plaque is seen along the abdomi nal aorta. The upper abdomi nal aorta measur es 1.1 cm in AP dimens ion, the mid aorta measur es 1.8 cm, and the distal aorta measur es 1.5 cm. Inferi or vena cava: Normal . Other: No free fluid. IMPRES AKLI: 1. Mildly echoge jamin liver likely repres enting hepati c steato sis. 2. Obscur ed pancre as. 3. Slight ectasi a of the mid abdomi nal aorta measur ing 1.8 cm. WSN: [id number] Dictat ed By: Vy Duque MD Dictat ed Date/T gerri: 9:01 am Review ed By: Vy Duque MD Signed By: Vy Duque MD Signed Date/T gerri: 9:01 am Transc ribed By: CSB Transc ribed Date/T gerri: 8:58 am Patien t Class: Outpat ient [facility] (Outpt Imaging) [address], [place], [address], 09/19/2018 10:45:52 09/30/19 19 09/27/2018 regad enoso n stres s test (PROC ) No observ ation record ed. [facility] [address] [facility], [place], [address], 10/20/2018 14:22:03 11/09/19 19 11/08/2018 CT, chest , w/ contr ast CT Chest W/ Contra st INDICA TION: R63.4 UNINTE NTIONA L WT LOSS RO OCCULT MALIGN RICHARD. COMPAR MINGO: 08/30/19 14 TECHNI QUE: Helica l CT scan of the chest with IV contra st, format melissa in 3 planes . Weight -based protoc ol was perfor med using automa tic exposu re contro l. CTDIvo l Body: 3.71 mGy, DLP Body: 142 mGy*cm . FINDIN GS: LINES AND TUBES: None. TRACHE A AND MAIN BRONCH I: Patent withou t eviden ce of trache al or endobr onchia l lesion . LUNGS AND PLEURA : 7 mm and 4 mm nodule s in the lingul a abutti ng the obliqu e fissur e have morpho logy of lymph nodes and are stable since 2013, benign . There is minor scarri ng at the left lung base which is likely relate d to pleura l effusi on from 1999 4. There is no bronch iectas is or bronch ial wall thicke lia. Howeve r, there is diffus brandon decrea sed lung densit y, partic ularly at the bases, also apprec iated on chest radiog raph. Lungs appear hyperi nflate d, also best apprec iated on radiog raph. AORTA: No eviden ce of aortic aneury sm. MEDIAS TINUM and FENG: No hemato ma, mass or adenop athy. Prior CABG. No perica rdial effusi on. No esopha geal abnorm alitie s. CHEST WALL SOFT TISSUE S: Normal . DIAPHR AGM AND UPPER ABDOME N: Smooth thicke lia of the capsul e of the spleen relate d to prior subcap sular collec tion in 014. Atroph ic pancre as with dilate d main pancre atic duct measur ing 5 mm. Multip le calcif icatio ns in the pancre as in keepin g with chroni c pancre atitis . There is a stone in the pancre atic duct at the head of pancre as, the likely cause of ductal dilata tion. Pancre atic ductal dilata tion was also presen t in 2013. BONES: Normal . IMPRES KALI: No malign richard is identi fied in the chest. Decrea sed lung densit y, partic ularly in the lower zones, with hyperi nflate d lungs. Appear ance sugges ts diffus e obstru ctive small airway s diseas e. Recomm end correl ation with pulmon jonelle functi on tests. Chroni c pancre atitis with dilate d main pancre atic duct, which appear s second jonelle to a stone in the duct at the head of pancre as. WSN: [id number] Dictat ed By: Elise Srinivasan MD Dictat ed Date/T gerri: 3:47 pm Review ed By: Elise Srinivasan MD Signed By: Elise Srinivasan MD Signed Date/T gerri: 3:47 pm Transc ribed By: ANNY Transc ribed Date/T gerri: 3:29 pm Patien t Class: Outpat ient [facility] (Outpt Imaging) [address] [place], [address], 11/17/2018 16:12:28 12/14/19 20 12/11/2019 trans -thor acic echoc ardio gram (TTE) (PROC ) No observ ation record ed. [facility] [address] [facility], [place], [address], 12/17/2019 22:16:50 Result Notes None recorded. Problems Name Problem SNOMED Code Status Onset Date Resolution Date Notes Provider Name and Address Organization Details Recorded Time Abdomina l pain 18591044 Completed 201203/04/2014 IMPRESSI ON: HAS RISK FACTORS FOR GASTRITI S. WILL START PPI EMPIRICA LLY WHILE WAITING FOR GI F/U.; RECORDED 04/10/20 13 3:36PM BY LAKSHMI STEARNS MA, ANNOTATI ON/ADDEN DUM Glynn Hernández MD [address] [facility] [address] [facility] [address], [place], [address] , [facility] 10:12:45 Tobacco user [id number] Completed 201203/04/2014 RECORDED 09/07/19 13 2:45PM BY SHERYL PAREDES MA, ANNOTATI ON/ADDEN RENATO Hernández MD [address] [address], [place], [address] , [facility] [place] [facility] 10:12:45 Cough [id number] Completed 201103/04/2014 IMPRESSI ON: SYMPTOMS PRESENT JUST UNDER 1 WEEK. WILL TREAT SYMPTOMA TICALLY AND COVER FOR BACTERIA L SOURCE IF PERSISTA NT.; RECORDED 06/28/20 12 3:37PM BY SHERYL PAREDES MA, ANNOTATI ON/ADDEN RENATO Hernández MD [address] [facility] [address], [place], [address] , [facility] [place] [facility] 10:12:45 Type 2 diabetes mellitus without complica tion [id number] Completed 201303/04/2014 RECORDED 08/10/19 14 11:00AM BY ELEAZAR OAKES MA, ANNOTATI ON/CORDELL Hernández MD [address] [facility] [address], [place], [address] , [facility] [place] [facility] 10:12:45 Follow-u p encounte r Completed 201203/04/2014 RECORDED 03/16/20 13 11:54AM BY ELEAZAR OAKES MA, ANNOTATI ON/CORDELL Hernández MD [address] [facility] [address], [place], [address] , [facility] [place] 10:12:45 Influenz a vaccine needed [id number] Completed 201203/04/2014 RECORDED 04/06/20 13 1:37PM BY LAKSHMI STEARNS MA, OFFICE VISIT Glynn Hernández MD [address] [facility] [address], [place], [address] , [facility] [place] 10:12:45 Adult health examinat ion Completed 201203/04/2014 IMPRESSI ON: WILL UPDATE IMMUNIZA TION STATUS AND SCREEN BASED ON RISK FACTORS. REGULAR DENTAL CARE AND SEATBELT USE ADVISED. DISTRACT ED DRIVING DISCUSSE D. COLON CANCER SCREENIG N UTD. PROSTATE CANCER SCREENIN G TAILORED BASED ON RISK FACTORS. ; RECORDED 04/10/20 13 3:36PM BY LAKSHMI STEARNS MA, CATRACHITOATI ON/CORDELL Hernández MD [address] [facility] [address], [place], [address] , [facility] [place] 6 10:12:45 Laborato ry procedur e performe d [id number] Completed 201303/04/2014 RECORDED 08/10/19 14 10:59AM BY ELEAZAR OAKES MA, SAMMY ON/CORDELL Hernández MD [address] [facility] [address], [place], [address] , [facility] [place] 6 10:12:45 Shoulder joint pain [id number] Completed 201103/04/2014 IMPRESSI ON: PERSISTA NT DESPITE CONSERVA TICVE THERAPY. WILL SEE WHAT ORTHO THINKS.; RECORDED 06/28/20 12 3:37PM BY SHERYL PAREDES MA, ANNOTATI ON/CORDELL Hernández MD [address] [facility] [address], [place] [place], [address] , [facility] [place] [facility] 10:12:45 Lipoma [id number] Completed 201303/04/2014 IMPRESSI ON: MOST LIKELY DIAGNOSI S. REASSURA NCE PROVIDED . IF CHANGES OR BECOMES UNCOMFOR TABLE WILL EVALUATE FURTHER. ; RECORDED 10/12/19 14 12:56PM BY LAKSHMI STEARNS MA, CATRACHITOATI ON/CORDELL Hernández MD [address] [facility] [address], [place], [address] , [facility] [place] 6 10:12:45 Renewal of prescrip tion Completed 201303/04/2014 RECORDED 11/16/19 14 1:29PM BY LAKSHMI STEARNS MA, ANNOTATI ON/ADD DUM Glynn Hernández MD [address] [facility] [address], [place], [address] , [facility] [place] 6 10:12:45 Mononeur itis of lower limb Completed 201303/04/2014 RECORDED 08/10/19 14 11:00AM BY ELEAZAR OAKES MA, ANNOTATI ON/ADD DUM Glynn Hernández MD [address] [facility] [address], [place], [address] , [facility] [place] 6 10:12:45 Pleural effusion [id number] Completed 201303/04/2014 IMPRESSI ON: WORSE SINCE IN THE HOSPITAL 2 WEEKS AGO. GAVE HIM CHOICE OF ER OR SEEING PULMONAR Y DR NEXT WEEK. HE WOULD LIKE TO WAIT. HE WILL GO TO ER IF ANY FEVERS, ANY WORSENIN G PAIN.; RECORDED 11/16/19 14 2:08PM BY GLYNN Macias MD, ANNOTATI ON/ Glynn Hernández MD [address] [facility] [address], [place], [address] , [facility] [place] 6 10:12:45 Pneumoni a [id number] Completed 201303/04/2014 IMPRESSI ON: RADIOLOG IST READ STATES THERE MAY STILL BE CONSOLID ATION IN LUNG. PULMONAR Y TO REASSESS NEXT WEEK; RECORDED 01/10/20 14 5:46PM BY GLYNN Macias MD, ANNOTATI ON/ DUM Glynn Hernández MD [address] [facility] [address], [place], [address] , [facility] [place] 6 10:12:45 Abdomina l pain 45151819 Completed 201202/05/2014 IMPRESSI ON: HAS RISK FACTORS FOR GASTRITI S. 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 48495462 Completed 05/30/2017 Glynn Hernández MD [address] [facility] [address], [place], [address] , [facility] [place] 7 11:34:19 Tobacco user [id number] Completed 201202/05/2014 RECORDED 09/07/19 13 2:45PM BY SHERYL PAREDES MA, ANNOTATI ON/ADD DUM Glynn Hernández MD [address] [facility] [address], [place], [address] , [facility] [place] 6 10:12:45 History of clinical finding in subject [id number] Completed 201203/08/2014 RECORDED 09/07/19 13 2:45PM BY SHERYL PAREDES MA, ANNOTSARAN ON/ DUM Glynn Hernández MD [address] [facility] [address], [place], [address] , [facility] [place] 6 10:12:45 Coronary atherosc lerosis 184178070 Active Not Available [facility] 0 18:23:47 Cough [id number] Completed 201102/05/2014 IMPRESSI ON: SYMPTOMS PRESENT JUST UNDER 1 WEEK. WILL TREAT SYMPTOMA TICALLY AND COVER FOR BACTERIA L SOURCE IF PERSISTA NT.; RECORDED 06/28/20 12 3:37PM BY SHERYL PAREDES MA, ANNOTATI ON/ADD DUM Glynn Hernández MD [address] [facility] [address], [place], [address] , [facility] [place] 6 10:12:45 Type 2 diabetes mellitus without complica tion 044404642 Completed 201302/05/2014 RECORDED 08/10/19 14 11:00AM BY ELEAZAR OAKES MA, CATRACHITOATI ON/ADDEN DUM Glynn Hernández MD [address] [facility] [address], [place], [address] , [facility] [place] 6 10:12:45 Uncontro lled type 2 diabetes mellitus 545906595 Completed 12/23/2016 STORY: DOMINGO BURROWS RN [phone] /ANA PAULA Hernández MD [address] [facility] [address], [place], [address] , [facility] [place] 7 12:06:51 Uncontro lled type 2 diabetes mellitus 574387362 Completed 201302/05/2014 IMPRESSI ON: BASED ON HOME MEASUREM ENTS CONTROL IS INADEQUA TE. WILL MAXIMIZE METFORMI N DOSE AND RECHECK LABS.; RECORDED 11/16/19 14 1:29PM BY LAKSHMI STEARNS MA, SAMMY ON/CORDELL Hernández MD [address] [facility] [address], [place], [address] , [facility] [place] 7 12:06:51 Follow-u p encounte r Completed 201202/05/2014 RECORDED 03/16/20 13 11:54AM BY ELEAZAR OAKES MA, SAMMY ON/CORDELL DUM Glynn Hernández MD [address] [facility] [address], [place], [address] , [facility] [place] 6 10:12:45 Essentia l hyperten kali 01505857 Active Not Available [facility] 0 18:23:47 Influenz a vaccine needed [id number] 06 Completed 201202/05/2014 RECORDED 04/06/20 13 1:37PM BY LAKSHMI STEARNS MA, OFFICE VISIT Glynn Hernández MD [address] [facility] [address], [place], [address] , [facility] [place] 6 10:12:45 Adult health examinat ion Completed 201202/05/2014 IMPRESSI ON: WILL UPDATE IMMUNIZA TION STATUS AND SCREEN BASED ON RISK FACTORS. REGULAR DENTAL CARE AND SEATBELT USE ADVISED. DISTRACT ED DRIVING DISCUSSE D. COLON CANCER SCREENIG N UTD. PROSTATE CANCER SCREENIN G TAILORED BASED ON RISK FACTORS. ; RECORDED 04/10/20 13 3:36PM BY LAKSHMI STEARNS MA, ANNOTATI ON/CORDELL Hernández MD [address] [address], [place], [address] , [facility] 6 10:12:45 Gastroes ophageal reflux disease 434030923 Active Not Available [facility] 0 18:23:47 Pure hypercho lesterol emia 237560316 Active Not Available [facility] 0 18:23:47 Essentia l hyperten kali 16672872 Completed 201202/05/2014 RECORDED 08/07/19 13 2:35PM BY SHERYL PAREDES MA, CATRACHITOATI ON/CORDELL Hernández MD [address] [address], [place], [address] , [facility] [place] 6 10:12:45 Laborato ry procedur e performe d 840042800 Completed 201302/05/2014 RECORDED 08/10/19 14 10:59AM BY ELEAZAR OAKES MA, SAMMY ON/CORDELL Hernández MD [address] [address], [place], [address] , [facility] [place] 6 10:12:45 Shoulder joint pain 684671807 Completed 201102/05/2014 IMPRESSI ON: PERSISTA NT DESPITE CONSERVA TICVE THERAPY. WILL SEE WHAT ORTHO THINKS.; RECORDED 06/28/20 12 3:37PM BY SHERYL PAREDES MA, SAMMY ON/CORDELL Hernández MD [address], [place], [address] , [facility] [place] 6 10:12:45 Lipoma 43604698 Completed 201302/05/2014 IMPRESSI ON: MOST LIKELY DIAGNOSI S. REASSURA NCE PROVIDED . IF CHANGES OR BECOMES UNCOMFOR TABLE WILL EVALUATE FURTHER. ; RECORDED 10/12/19 14 12:56PM BY LAKSHMI STEARNS MA, SAMMY ON/CORDELL Hernández MD [address] [facility] [address], [place], [address] , [facility] [place] 6 10:12:45 Renewal of prescrip tion Completed 201302/05/2014 RECORDED 11/16/19 14 1:29PM BY LAKSHMI STEARNS MA, SAMMY ON/CORDELL Hernández MD [address], [place], [address] , [facility] [place] 6 10:12:45 Mononeur itis 83663010 Active Not Available [facility] 0 18:23:47 Mononeur itis of lower limb Completed 201302/05/2014 RECORDED 08/10/19 14 11:00AM BY ELEAZAR OAKES MA, SAMMY ON/CORDELL Hernández MD [address], [place], [address] , [facility] 6 10:12:45 Old myocardi al infarcti on 4124951 Active 2000 IMI/EF 47% 5 nuc stress/ STORY: NAVARRO Not Available [facility] 0 18:23:47 Chronic pancreat itis 902526965 Active Not Available [facility] 0 18:23:47 Pleural effusion 75779911 Completed 201302/05/2014 IMPRESSI ON: WORSE SINCE IN THE HOSPITAL 2 WEEKS AGO. GAVE HIM CHOICE OF ER OR SEEING PULMONAR Y DR NEXT WEEK. HE WOULD LIKE TO WAIT. HE WILL GO TO ER IF ANY FEVERS, ANY WORSENIN G PAIN.; RECORDED 11/16/19 14 2:08PM BY GLYNN Macias MD, ANNOTATI ON/ADDEN DUM Glynn Hernández MD [address], [place], [address] , [facility] [place] 6 10:12:45 Pneumoni a 114808466 Completed 201303/08/2014 IMPRESSI ON: RADIOLOG IST READ STATES THERE MAY STILL BE CONSOLID ATION IN LUNG. PULMONAR Y TO REASSESS NEXT WEEK; RECORDED 11/16/19 14 1:34PM BY LAKSHMI STEARNS MA, OFFICE VISIT Glynn Hernández MD [address] [facility] [address], [place], [address] , [facility] [place] 6 10:12:45 Neuropat hy due to diabetes mellitus 283774935 Active Not Available [facility] 0 18:23:47 Body mass index 25-29 - overweig ht 034936178 Completed 05/30/2017 Glynn Hernández MD [address] [facility] [address], [place], [address] , [facility] [place] 7 11:32:22 Type 2 diabetes mellitus 26296194 Completed 12/05/2018 Removal Reason: not specific Mely xie, [facility] 9 09:38:09 Mitral valve regurgit ation 18565766 Active Not Available [facility] 0 18:23:47 Multiple joint pain 57142412 Active Not Available [facility] 0 18:23:48 Well controll ed type 2 diabetes mellitus 254164899 Completed 01/03/2019 Soledad Peck PA-C [address], [place], [address] , [facility] [place] 9 14:34:20 Shoulder pain 17833799 Completed 10/20/2018 Glynn Hernández MD [address], [place], [address] , [facility] 9 14:39:07 Christine talavera Completed 05/30/2017 Glynn Hernández MD [address], [place], [address] , [facility] [place] 7 11:32:31 Serum creatini ne above referenc e range 345316032 Active Not Available [facility] 0 18:23:47 Diabetic distal sensorim otor polyneur opathy Active Not Available [facility] 0 18:23:47 Knee pain Active Not Available [facility] 0 18:23:47 Hyperkal emia 61333728 Completed 11/19/2016 Glynn Hernández MD [address], [place], [address] , [facility] [place] 7 08:25:48 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 898744442 Active Not Available [facility] 0 18:23:47 Chronic kidney disease stage 3 076068391 Active 2016 Not Available [facility] 0 18:23:47 Bilatera l tinnitus 96950188174 02 Active 2017 Not Available [facility] 0 18:23:47 Sensorin eural hearing loss 80949556 Active 2017 Not Available [facility] 0 18:23:47 Albuminu charlie 872446423 Active 2018 Not Available [facility] 0 18:23:47 Dilatati on of aorta 65073590 Active 2018 1.8 cm abdomina l Not Available [facility] 0 18:23:47 Steatosi s of liver 508070600 Active 2018 Not Available [facility] 0 18:23:47 Recurren t major depressi on 34648298 Active 2018 Not Available [facility] 0 18:23:47 Renal disorder due to type 2 diabetes mellitus 397794240 Active 2018 Not Available [facility] 0 18:23:48 Narrow angle of anterior chamber of left eye 92576141659 299773 Active 2018 Not Available [facility] 0 18:23:47 Nuclear cataract 37425607 Active 2018 Not Available [facility] 0 18:23:48 Aortic root dilatati on 498854453 Active 2019 Not Available [facility] 0 18:23:47 Noncompl iance with medicati on regimen 809222154 Active 2020 Glynn Hernández MD [address] [address], [place], [address] , [facility] [place] 1 22:01:23 Notes:Some problems listed i n Documents: #[id number], #[id number], #[id number], #[id number], #[id number], #[id number], #[id number], #[id number] could not be added to this patient's chart. Please review these documents and add these problems to the patient's chart manually as needed. Problem Notes None recorded. Procedures Surgical History Date Name Laterality Status Provider Name and Address Organization Details Recorded Time 12/11/19 20 Echo transthoracic completed Glynn Hernández MD [address], [address], [facility] 12/17/2019 22:15:25 01/16/20 19 iridotomy completed Glynn Hernández MD [address], [address], [facility] 01/31/2019 10:16:14 01/04/20 19 Diabetic Foot Exam (Monofilament) completed Margaret Coe [facility] 01/03/2019 14:22:39 10/31/19 19 angiography of coronary artery completed Glynn Hernández MD [address], [address], [facility] 11/17/2018 16:23:33 09/28/19 19 radionuclide imaging of perfusion of myocardium under exercise stress completed Glynn Hernández MD [address], [address], [facility] 10/02/2018 14:15:32 10/16/19 17 Colonoscopy completed Lakshmi Stearns MA [facility] 11/18/2016 11:20:22 03/11/20 16 Stress Test completed Glynn Hernández MD [address] [facility] [address] [facility], [place], [address], [facility] 03/21/2016 10:16:26 11/05/19 15 Echo Transthoracic completed Glynn Hernández MD [address], [address], [facility] 11/07/2014 17:34:46 09/25/19 15 CABG completed Glynn Hernández MD [address], [address], [facility] 09/29/2014 12:48:27 01/23/20 12 Imaging, cardiac cath completed Glynn Hernández MD [address], [address], [facility] 09/17/2014 09:24:50 01/23/20 12 Cardiac Surgery completed Glynn Hernández MD [address], [address], [facility] 10/20/2018 14:20:26 06/24/20 06 Colonoscopy completed Lakshmi Stearns MA [facility] 06/13/2014 11:12:06 01/23/20 01 Cardiac Surgery completed Lakshmi Stearns MA [facility] 02/24/2016 13:01:28 Tonsillectomy completed Lakshmi Stearns MA [facility] 02/24/2016 13:01:28 Orthopedic Surgery completed Lakshmi Stearns MA [facility] 02/24/2016 13:01:28 Imaging Results Imaging Date Name Status LastModified by Organization Details LastModified Time 09/08/2018 XR, chest, 2 view completed [facility] (Outpt Imaging) [address] [place], [address], 09/19/2018 10:45:52 09/14/2018 US, abdomen, complete completed [facility] (Outpt Imaging) [address] [place], [address], 09/19/2018 10:45:52 09/27/2018 regadenoson stress test (PROC) completed [facility] [address] [place], [address], 10/20/2018 14:22:03 11/08/2018 CT, chest, w/ contrast completed [facility] (Outpt Imaging) [address] [place], [address], 11/17/2018 16:12:28 12/11/2019 trans-thoracic echocardiogram (TTE) (PROC) completed [facility] [address] [place], [address], 12/17/2019 22:16:50 Procedure Notes None recorded. Medical Equipment None Reported. Allergies Allergen ID Allergen Name Allergen Category Reaction Reaction Severity Criticality Documentation Date Start Date Code Code System Note Provider Name and Address Organization Details Recorded Time 90870 codeine medicatio n other Not available Not available 05/18/20212013 2670 RxNorm Aimee Courtney [facility], [facility] 1 10:42:54 4674 codeine sulfate medicatio n tachycard ia Not available Not available 02/05/20142013 29205 RxNorm Glynn Hernández MD [address] [facility] [address], [place], [address], [facility] 7 11:31:43 Medications Name Sig Start Date Stop Date Status Note LastModified by Organization Details LastModified Time amitripty line hcl 25 mg tabs 1 tablet at bedtime active Not Available Not Available No t Available freestyle mis lancetsfr eestyle lancets active Not Available Not Available Not Available freestyle rachelle litefrees tyle lite test strips active Not Available Not Available Not Available metoprolo l succinate er 25 mg tb24 active Not Available Not Available Not Available freestyle mis lancets active Not Available Not Available Not Available atorvasta tin calcium 20 mg tabs active Not Available Not Available Not Available metformin hcl 1000 mg tabs active Not Available Not Available Not Available amitripty line hcl 10 mg tabs 1-4 tabs at bedtime as needed active Not Available Not Available No t Available glipizide er 5 mg tb24 active Not Available Not Available Not Available folic acid 1 mg tabs active Not Available Not Available Not Available lisinopri l 10 mg tabs active Not Available Not Available Not Available atorvasta tin 40 mg tablet Take 1 tablet every day by oral route. 2013 active Pt has been w/o meds for 5 days due a financia l problem w/ [facility] mail order, pt needs this script sent to [facility] while waiting 2 weeks for mail order to arrive Not Available Not Available Not Available metformin 500 mg tablet TAKE 1 TABLET BY MOUTH THREE TIMES A DAY active Not Available Not Available No t Available acetamino phen 325 mg tablet EVERY FOUR HOURS 08/10 completed RECORDED 08/10/19 14 11:05AM BY ELEAZAR OAKES MA, OFFICE VISIT;NO T TO EXCEED 4000 MG/DAY Not Available Not Available Not Available venlafaxi ne ER 75 mg capsule,e xtended release 24 hr Take 1 capsule every other day by oral route. 12/19 completed Not Available Not Available Not Available atorvasta tin 20 mg tablet TAKE 1 TABLET BY MOUTH EVERY DAY active Not Available Not Available No t Available cyanocoba yandy (vit B-12) 100 mcg tablet active Not Available Not Available Not Available glyburide 5 mg tablet TAKE 1 TABLET BY MOUTH EVERY DAY 06/13 completed Not Available Not Available Not Available metoprolo l succinate ER 50 mg tablet,ex tended release 24 hr TAKE 1 TABLET BY MOUTH EVERY DAY active Not Available Not Available No t Available Procrit 40,000 unit/mL injection solution Take 1 unit every week by injectio n route. active Not Available Not Available No t Available FreeStyle Lancets 28 gauge Take 1 each every day by miscell. route as needed for 30 days. active Not Available Not Available No t Available lisinopri l 20 mg tablet Take 1 tablet every day by oral route for 30 days. 07/13 completed Not Available Not Available Not Available glipizide ER 5 mg tablet, extended release 24 hr TAKE 1 TABLET BY MOUTH DAILY 10/15 completed Not Available Not Available Not Available metformin 850 mg tablet Take 0.5 tablets twice a day by oral route for 30 days. 06/03 completed Not Available Not Available Not Available venlafaxi ne ER 150 mg capsule,e xtended release 24 hr Take 1 capsule every other day by oral route for 30 days. 11/17 completed along with 75 mg Not Available Not Available Not Available amlodipin e 2.5 mg tablet DAILY 12/22 completed RECORDED 01/03/20 13 2:08PM BY GLYNN Macias MD, MEDICATI ON AUTO-AMY CTIVATIO N; Not Available Not Available Not Available clopidogr el 75 mg tablet DAILY 07/04 completed RECORDED 07/04/20 13 2:18PM BY MICHAEL LUO MA, ANNOTATI ON/CORDELL DUM; Not Available Not Available Not Available amlodipin e 5 mg tablet Take 1 tablet every day by oral route for 30 days. 04/07 completed Not Available Not Available Not Available simvastat in 40 mg tablet DAILY 08/10 completed RECORDED 08/10/19 14 11:04AM BY ELEAZAR OAKES MA, OFFICE VISIT; Not Available Not Available Not Available lamotrigi ne 25 mg tablet Take 2 tablets twice a day by oral route for 60 days. 08/22 completed Not Available Not Available Not Available dronabino l 2.5 mg capsule 08/22 completed Not Available Not Available Not Available carbamaze pine 200 mg tablet 05/06 completed Not Available Not Available Not Available amitripty line 25 mg tablet 05/06 completed Not Available Not Available Not Available oxycodone -acetamin ophen 10 mg-325 mg tablet NEEDED active RECORDED 07/27/19 14 11:30AM BY CAMMIE PARIKH RN, CATRACHITOATI ON/ DUM; Not Available Not Available Not Available glipizide ER 2.5 mg tablet, extended release 24 hr 02/20 completed Not Available Not Available Not Available mirtazapi ne 30 mg tablet Take 1 tablet every day by oral route. 2018 active Not Available Not Available Not Avai lable metformin 1,000 mg tablet TAKE 1 TABLET BY MOUTH TWICE A DAY FOR 30 DAYS 04/22 completed Not Available Not Available Not Available lisinopri l 10 mg tablet TAKE 1 TABLET BY MOUTH EVERY DAY 03/10 completed Not Available Not Available Not Available hydrochlo rothiazid e 12.5 mg capsule TAKE 1 CAPSULE( S) EVERY DAY BY ORAL ROUTE FOR 30 DAYS. active Not Available Not Available No t Available nitroglyc catalina 0.4 mg sublingua l tablet Place 1 tablet as needed by sublingu al route. active Not Available Not Available No t Available gabapenti n 300 mg capsule TWO TIMES DAILY active RECORDED 04/06/20 13 1:52PM BY GLYNN Macias MD, SAMMY ON/ DUM; Not Available Not Available Not Available folic acid 1 mg tablet Take 1 tablet every day by oral route for 90 days. 05/30 completed Not Available Not Available Not Available lisinopri l 5 mg tablet TAKE 1 TABLET BY MOUTH EVERY DAY 08/22 completed Not Available Not Available Not Available Baby Aspirin 81 mg chewable tablet Chew 1 tablet every day by oral route. active Not Available Not Available No t Available mupirocin 2 % topical ointment active Not Available Not Available Not Available mirtazapi ne 15 mg tablet TAKE 1 TABLET BY MOUTH EVERYDAY AT BEDTIME 11/17 completed Not Available Not Available Not Available metoprolo l succinate ER 25 mg tablet,ex tended release 24 hr TAKE 1 TABLET BY MOUTH DAILY 01/20 completed Not Available Not Available Not Available diltiazem 30 mg tablet active Not Available Not Available Not Available hydromorp rupa 4 mg tablet active Not Available Not Available Not Available lamotrigi ne 100 mg tablet 08/22 completed Not Available Not Available Not Available Ketostix strips active Not Available Not Available Not Available glipizide 5 mg tablet Take 1 tablet every day by oral route for 30 days. 07/13 completed Not Available Not Available Not Available amoxicill in 875 mg-potass ium clavulana te 125 mg tablet TWO TIMES DAILY FOR 2 DAYS 08/10 completed RECORDED 08/10/19 14 11:05AM BY ELEAZAR OAKES MA, OFFICE VISIT;ST ART 07/26/13 IN EVENING Not Available Not Available Not Available oxycodone 5 mg tablet Take 1 tablet every 4-6 hours by oral route as needed for 7 days. 05/06 completed Not Available Not Available Not Available Delsym 30 mg/5 mL oral liquid,ex tended release 08/07 completed RECORDED 08/07/19 13 3:39PM BY GLYNN Macias MD, ANNOTATI ON/ADD DUM; Not Available Not Available Not Available Adult Aspirin 81 mg tablet DAILY 12/15 completed RECORDED 01/03/20 13 2:08PM BY GLYNN Macias MD, MEDICATI ON AUTO-AMY CTIVATIO N; Not Available Not Available Not Available alprazola m ER 0.5 mg tablet,ex tended release 24 hr DAILY 06/05 completed RECORDED 06/05/20 12 1:29PM BY LAKSHMI STEARNS MA, OFFICE VISIT; Not Available Not Available Not Available Levitra 20 mg tablet TAKE 1 TABLET(S ) EVERY DAY BY ORAL ROUTE NEEDED. 01/03 completed Not Available Not Available Not Available Prilosec OTC 20 mg tablet,de layed release DAILY 08/10 completed RECORDED 08/10/19 14 11:04AM BY ELEAZAR OAKES MA, OFFICE VISIT; Not Available Not Available Not Available metoprolo l tartrate 25 mg tablet DAILY active RECORDED 06/05/20 12 1:59PM BY GLYNN Macias MD, ANNOTATI ON/ADD DUM; Not Available Not Available Not Available duloxetin e 30 mg capsule,d elayed release TAKE 2 CAPSULE( S) EVERY DAY BY ORAL ROUTE FOR 30 DAYS. 05/06 completed Not Available Not Available Not Available Cymbalta 60 mg capsule,d elayed release Take 1 capsule every day by oral route for 90 days. 2014 active Not Available Not Available Not Avai lable Lyrica 50 mg capsule Take 1 capsule 3 times a day by oral route for 30 days. active Not Available Not Available No t Available Lyrica 100 mg capsule Take 1 capsule 3 times a day by oral route for 30 days. 06/13 completed Not Available Not Available Not Available Aspirin EC DAILY orally 08/22 completed Not Available Not Available Not Available ferrous sulfate DAILY orally 05/30 completed Not Available Not Available Not Available multivita min DAILY orally 05/30 completed Not Available Not Available Not Available peg 3350-elec trolytes 236 gram-22.7 4 gram-6.74 gram-5.86 gram solution 11/18 completed Not Available Not Available Not Available Lantus Solostar U-100 Insulin 100 unit/mL (3 mL) subcutane ous pen Inject 10 units every day by subcutan eous route for 30 days. 2018 active Not Available Not Available Not Avai lable oxycodone 10 mg tablet active Not Available Not Available Not Available Creon 24,000-76 ,000-120, 000 unit capsule,d elayed release active Not Available Not Available Not Available Fluarix Quad 5726-5954 (PF) 60 mcg (15 mcg x 4)/0.5 mL IM syringe 05/06 completed Not Available Not Available Not Available Flucelvax Quad (PF) 60 mcg (15 mcg x 4)/0.5 mL IM syringe 08/22 completed Not Available Not Available Not Available Flucelvax Quad (PF) 60 mcg (15 mcg x 4)/0.5 mL IM syringe active Not Available Not Available Not Available Vitals Date Recorded Body height Body mass index (BMI) Body weight Heart rate Body temperature Oxygen saturation Oxygen saturation in Arterial blood by Pulse oximetry Systolic blood pressure Diastolic blood pressure Provider Name and Address Organization Details Last Updated DateTime 9 175.9 cm 18.2 kg/m2 67125.4 5 g 65 /min 96.8 [degF] 98 % 98 % 101 mm[Hg] 69 mm[Hg] Lakshmi Stearns MA [facility] 9 10:24:44 Date Recorded Body height Body mass index (BMI) Body weight Heart rate Oxygen saturation Oxygen saturation in Arterial blood by Pulse oximetry Body temperature Systolic blood pressure Diastolic blood pressure Provider Name and Address Organization Details Last Updated DateTime 9 175.9 cm 20.2 kg/m2 60245.7 5 g 79 /min 97 % 97 % 98.3 [degF] 108 mm[Hg] 69 mm[Hg] Lakshmi Stearns MA [facility] 9 14:10:15 Date Recorded Body height Body mass index (BMI) Body weight Heart rate Oxygen saturation Oxygen saturation in Arterial blood by Pulse oximetry Body temperature Systolic blood pressure Diastolic blood pressure Provider Name and Address Organization Details Last Updated DateTime 9 175.9 cm 21.3 kg/m2 03104.8 9 g 60 /min 100 % 100 % 98.7 [degF] 112 mm[Hg] 74 mm[Hg] Lakshmi Stearns MA [facility] 9 15:41:31 Date Recorded Body height Body temperature Oxygen saturation Oxygen saturation in Arterial blood by Pulse oximetry Heart rate Body mass index (BMI) Body weight Systolic blood pressure Diastolic blood pressure Provider Name and Address Organization Details Last Updated DateTime 9 175.9 cm 97.7 [degF] 98 % 98 % 60 /min 21.3 kg/m2 58950.8 9 g 103 mm[Hg] 67 mm[Hg] Lakshmi Stearns MA [facility] 9 11:13:44 Date Recorded Body height Body mass index (BMI) Body weight Heart rate Oxygen saturation Oxygen saturation in Arterial blood by Pulse oximetry Systolic blood pressure Diastolic blood pressure Provider Name and Address Organization Details Last Updated DateTime 9 175.9 cm 22 kg/m2 93843.9 6 g 68 /min 96 % 96 % 126 mm[Hg] 80 mm[Hg] Margaret Coe [facility] 9 14:26:55 Social History Question Answer Notes LastModified by Organizat ion Details LastModified Time Tobacco Smoking Status Former Smoker quit 2008 Not Available [facility] 05/27/2020 03:36:41 Do You Have An Advance Directive? Yes HCP/ Girlfriend-Mustapha fletcher [id number] Information not available 05/27/2020 What Is Your Level Of Alcohol Consumption? Occasional Wine [id number] Information not available 05/27/2020 Is Blood Transfusion Acceptable In An Emergency? Yes [id number] Information not available 05/27/2020 What Is Your Level Of Caffeine Consumption? None [id number] Information not available 05/27/2020 How Much Tobacco Do You Chew? None [id number] Information not available 05/27/2020 Are You Currently Employed? No [id number] Information not available 05/27/2020 What Type Of Diet Are You Following? CARDIAC [id number] Information not available 05/27/2020 Which Illicit Or Recreational Drugs Have You Used? None [id number] Information not available 05/27/2020 What Is Your Occupation? Retired [employer] [id number] Information not available 05/27/2020 Live Alone Or With Others? With Others Girlfriend Information not available 06/13/2014 Do You Take Precautions To Prevent Distracted Driving? Yes Information not available 06/16/2015 How Often Do You Need To Have Someone Help You When You Read Instructions, Pamphlets, Or Other Written Material From Your Doctor Or Pharmacy? Never Information not available 02/24/2016 Have You Served In The ? No Information not available 05/30/2017 What Was The Date Of Your Most Recent Tobacco Screening? 01/03/2019 [id number] Information not available 05/27/2020 How Many Children Do You Have? 2 Sons [id number] Information not available 05/27/2020 Seat Belts Used Routinely Yes Information not available 06/13/2014 Are You Sexually Active? Yes [id number] Information not available 05/27/2020 Smoke Alarm In Home Yes Information not available 02/24/2016 At What Age Did You Start Smoking Tobacco? 20 [id number] Information not available 05/27/2020 Are You Passively Exposed To Smoke? Yes Information not available 02/24/2016 How Much Tobacco Do You Smoke? 0.5 PPD [id number] Information not available 05/27/2020 Do You Use Sunscreen Routinely? Yes [id number] Information not available 05/27/2020 How Many Years Have You Smoked Tobacco? 33 [id number] Information not available 05/27/2020 Sex: Unknown Functional Status Question Answer Note LastModified by Organization D etails LastModified Time Are you able to care for yourself? Yes [id number] Information n ot available 05/27/2020 What is your exercise level? None [id number] Information not available 05/27/2020 Mental Status None recorded. Family History Relationship Description Onset Age of this Age Resolved Age Notes LastModified by Organization Details LastModified Time Mother Diabetes mellitus abolcun Not available 2015 13:06:57 Mother Renal failure syndrome abolcun Not available 2015 13:00:54 Mother Kidney disease 82 84 abolcun Not available 2015 13:00:54 Father Coronary arterioscler osis abolcun Not available 2015 13:00:54 Father Heart disease 56 59 abolcun Not available 2015 13:00:54 Sister Hypertensive disorder abolcun Not available 2015 13:06:57 Sister Well adult abolcun Not availabl e 02/24/2016 13:00:54 Brother Allergy 30 49 abolcun Not available 02/24/2016 13:00:54 Son Well adult awychowski Not avail able 05/30/2017 11:38:30 Son Well adult awychowski Not avail able 05/30/2017 11:38:36 Paternal Uncle Malignant melanoma awychowski Not available 05/30 11:46:04 Medical History Condition Response Coronary Artery Disease Y Other N Gout N Kidney Stones N Blood Diseases N Hyperthyroidism N Breast Cancer N mrsa exposure N COPD N Depression N Lung Disease N Hypothyroidism N Defects or Inherited Disease N Developmental or Behavioral Disorders N Breast Problem N Anesthesia Complications N Headaches/Migraines N Varicose Veins Y Anxiety Disorder N Muscle, Joint, or Bone Problems N Obesity N Vision or Eye Problems N Arthritis N Head Injury/Concussion N Polyps N Infertility N Mental Disorder N Congenital Anomalies N Acid Reflux (GERD) N Cancer N Stroke N ADHD N Endometriosis N High Cholesterol Y Liver Disease N Fibromyalgia N Headaches N Kidney Disease N Heart Problems Y Ear or Hearing Problems N Hospitalizations Y Thyroid Problems N GI Problems N Developmental Delay N Acne N Skin Problems N Eating Disorder N Anemia Y Constipation N Bladder Problems N Mental Illness N Ovarian Cancer N Diabetes Y Bedwetting N Blood Transfusions N Seizures/Epilepsy N Heart Problems/Murmur N Tuberculosis N AIDS/HIV N Congestive Heart Failure (CHF) N Eczema N Diverticulitis N Abuse/Domestic Violence N Asthma N Allergies N Reflux/GERD N Hepatitis N Heart Disease N Pulmonary Embolism N Hypertension Y Osteoporosis N Chicken Pox N Autism Spectrum Disorder (ASD) N Immunizations Vaccine Type Date Status Note Provider Nam e and Address Organization Details Recorded Time Influenza, high-dose, trivalent, PF 4 completed Not Available [facility] 04/18/2020 18:23:48 Influenza, high-dose, trivalent, PF 5 completed Not Available [facility] 04/18/2020 18:23:48 Influenza, split virus, quadrivalent, preservative 6 completed Not Available [facility] 04/18/2020 18:23:48 Influenza, MDCK, quadrivalent, PF 8 completed Aimee xie [facility] 05/18/2021 10:43:09 Influenza, MDCK, quadrivalent, PF 9 completed Aimee xie [facility] 05/18/2021 10:43:09 Influenza, split virus, quadrivalent, PF 7 completed Not Available [facility] 08/11/2019 02:22:11 Tdap 9 completed Not Available [facility] 08/11/2019 02:21:49 influenza, seasonal, intradermal, preservative free 2 completed Not Available [facility] 04/18/2020 18:23:48 influenza, seasonal, intradermal, preservative free 3 completed Not Available [facility] 04/18/2020 18:23:48 Tdap 8 completed Not Available [facility] 04/18/2020 18:23:48 pneumococcal conjugate PCV 7 8 completed Not Available [facility] 04/18/2020 18:23:48 pneumococcal polysaccharide PPV23 4 completed Not Available [facility] 04/18/2020 18:23:48 Past Encounters Encounter ID Performer Location Encounter Start Date Encounter Closed Date Diagnosis/Indication Diagnosis SNOMED-CT Code Diagnosis ICD10 Code [id number] [facility] [address] [place] [address] 06/05/2012 00:00:00 [id number] [facility] [address] [place] [address] 08/07/2012 00:00:00 [id number] [facility] [address] [place] [address] 11/15/2012 00:00:00 [id number] [facility] [address] [place] [address] 04/06/2013 00:00:00 [id number] [facility] [address] [facility] [address] [place] [address] 07/04/2013 00:00:00 [id number] [facility] [address] [facility],[address] [place] [address] 08/10/2013 00:00:00 [id number] [facility] [address] [facility],[address] [place] [address] 10/03/2013 00:00:00 [id number] [facility] [address] [facility],[address] [place] [address] 11/15/2013 00:00:00 [id number] [facility] [address] [facility],[address] [place] [address] 12/14/2013 00:00:00 [id number] Lakshmi Stearns MA Main Office [address] [place] [address] 03/08/2014 15:04:54 03/08/2014 15:59:04 Uncontrolled type 2 diabetes mellitus 592462526 Neuropathy due to diabetes mellitus 144970925 Essential hypertension 79421950 [id number] Lakshmi Stearns MA Main Office [address] [place] [address] 06/13/2014 10:49:55 06/13/2014 12:08:08 Adult health examination 312929491 Body mass index 25-29 - overweight 533893431 Neuropathy due to diabetes mellitus 320621194 Coronary atherosclerosis 871290654 Uncontroll ed type 2 diabetes mellitus 710241673 Anemia 782425170 [id number] Glynn Hernández MD Main Office [address] [facility] [address] [place] [address] 10/21/2014 14:44:22 10/21/2014 15:41:20 Coronary atherosclerosis 623555959 Essential hypertension 95023268 Anemia 364643382 Uncontroll ed type 2 diabetes mellitus 086241892 [id number] Glynn Hernández MD Main Office [address] [address] [place] [address] 01/29/2015 11:15:31 01/29/2015 12:14:47 Essential hypertension 48156428 Multiple joint pain 3567 8005 Neuropathy due to diabetes mellitus 078955432 Well contr olled type 2 diabetes mellitus 944961385 [id number] Glynn Hernández MD Main Office [address] [address] [place] [address] 06/16/2015 10:57:24 06/16/2015 11:56:38 Adult health examination 417240752 Z00.00 Neuropathy due to diabetes mellitus 258526619 E11.40 Coronary atherosclerosis 837279309 I25.10 Uncontroll ed type 2 diabetes mellitus 791653650 E11.65 Anemia 344208801 D64.9 Chronic pancreatitis 235 049773 K86.1 Shoulder pain 93168551 M 25.511 [id number] Glynn Hernández MD Main Office [address] [address] [place] [address] 10/16/2015 11:29:30 10/16/2015 12:21:59 Type 2 diabetes mellitus 73796559 E11.9 Essential hypertension 57133436 I10 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 9670807 I25.2 Claudication 474499599 I 73.9 Neuropathy due to diabetes mellitus 363498521 E11.40 [id number] Quentin andrew Main Office [address] [address] [place] [address] 01/27/2016 12:58:25 01/27/2016 14:09:31 Knee pain 42102305 M25.561 [id number] Quentin andrew Main Office [address] [address] [place] [address] 02/24/2016 12:49:07 02/24/2016 14:41:36 Knee pain 62340597 M25.561 Hyperkalemia 64249593 E8 7.5 Serum crea tinine above reference range 303717356 R79.89 Coronary atherosclerosis 516385649 I25.812 [id number] Glynn Hernández MD Main Office [address] [address] [place] [address] 03/10/2016 10:30:28 03/10/2016 11:26:16 Pure hypercholesterolemia 100318052 E78.0 Essential hypertension 10409747 I10 Neuropathy due to diabetes mellitus 457347540 E11.40 Type 2 bertram betes mellitus 67148558 E11.22 Arterioscl erosis of coronary artery bypass graft 125756320 I25.810 [id number] Glynn Hernández MD Main Office [address] [address] [place] [address] 05/06/2016 10:51:00 05/06/2016 12:03:15 Neuropathy due to diabetes mellitus 201302163 E11.40 Essential hypertension 72180845 I10 Osteoarthr itis of knee 872457429 M17.11 Hypercholesterolemia 136 85971 E78.2 [id number] Glynn Hernández MD Main Office [address] [address] [place] [address] 11/18/2016 10:58:00 11/18/2016 12:13:19 Multiple joint pain 74285688 M25.50 Diabetic d istal sensorimotor polyneuropathy 519708204 E11.42 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 8079902 I25.2 Major depr essive disorder 972370793 F32.9 Essential hypertension 80195099 I10 [id number] Glynn Hernández MD Main Office [address] [address] [place] [address] 12/23/2016 11:27:59 12/23/2016 12:26:20 Essential hypertension 59586143 I10 Knee pain 25664502 M25.5 61 M25.562 Unexplaine d weight loss 201000766 R63.4 Anemia 550278553 D64.9 Major depr essive disorder 800424982 F32.9 Bilateral hearing loss 34955942 H91.93 [id number] Glynn Hernández MD Main Office [address] [address] [place] [address] 01/20/2017 13:31:07 01/20/2017 14:20:51 Essential hypertension 35513032 I10 Knee pain 99756068 M25.5 61 M25.562 Diabetic d istal sensorimotor polyneuropathy 610024920 E11.42 Anemia 642934026 D64.9 Primary er ectile dysfunction 018333280 N52.9 [id number] Melyximena Waterso Main Office [address] [address] [place] [address] 04/22/2017 10:31:20 04/22/2017 12:23:20 Needs influenza immunization 034960558 Z23 Diabetic d istal sensorimotor polyneuropathy 474685566 E11.42 Essential hypertension 31906685 I10 Screening for malignant neoplasm of prostate 390231189 Z12.5 [id number] Glynn Hernández MD Main Office [address] [address] 05/30/2017 10:57:48 05/30/2017 12:01:29 Adult health examination 585024620 Z00.00 Anemia 730814591 D64.9 Pure hypercholesterolemia 170014914 E78.00 Well contr olled type 2 diabetes mellitus 280718955 E11.9 Diabetic d istal sensorimotor polyneuropathy 912642212 E11.42 Essential hypertension 92561884 I10 [id number] Lakshmi Stearns MA Main Office [address] [address] 08/22/2018 09:57:31 08/22/2018 11:18:46 Essential hypertension 55437825 I10 Type 2 bertram betes mellitus 59985432 E11.9 Unintentio nal weight loss 877588103 R63.4 Paresthesia 27630236 R20 .2 Chronic pancreatitis 235 619326 K86.1 Chronic ki dney disease stage 3 462813471 N18.3 Requires a tetanus booster 503960343 Z23 Administra tion of viral vaccine 68320030 Z23 [id number] Glynn Hernández MD Main Office [address] [address] 09/19/2018 10:00:58 09/19/2018 11:03:19 Early satiety 165876372 R68.81 Unintentio nal weight loss 761501548 R63.4 Anemia 140759080 D64.9 Arterioscl erosis of coronary artery bypass graft 371251138 I25.810 Underweight 698075410 R6 3.6 Z68.1 [id number] Glynn Hernández MD Main Office [address] [address] 10/20/2018 13:46:55 10/20/2018 14:53:24 Adult health examination 766344549 Z00.00 Varicella vaccination 68 825538 Z23 Diabetic d istal sensorimotor polyneuropathy 818599423 E11.42 Recurrent major depression 09184848 F33.1 Anemia 029971827 D64.9 Purpura an d/or petechiae 481658990 R23.3 Coronary atherosclerosis 491563983 I25.10 [id number] Mely Ahmadi Main Office [address] [address] 11/17/2018 15:20:46 11/17/2018 16:39:55 Essential hypertension 51018539 I10 Recurrent major depression 72209327 F33.1 Diabetic d istal sensorimotor polyneuropathy 784185808 E11.42 Anemia 458911072 D64.9 [id number] Glynn Hernández MD Main Office [address] [address] 12/19/2018 10:36:36 12/19/2018 11:38:37 Essential hypertension 43716815 I10 Recurrent major depression 01267453 F33.1 Anemia 119580350 D64.9 Bilateral glaucoma 56461 73596 1589844 H40.9 Uncontroll ed type 2 diabetes mellitus 048932051 E11.65 [id number] Soledad Peck PA-C Main Office [address] [address] 01/03/2019 14:16:54 01/03/2019 15:36:52 Uncontrolled type 2 diabetes mellitus 700054208 E11.65 Diabetic d istal sensorimotor polyneuropathy 629422937 E11.42 Chronic ki dney disease stage 3 423046978 N18.3 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 988780974 E11.22 Health Concerns Section Related Observation LastModified by Organization Detai ls LastModified Time None Recorded Concern Status LastModified by Organization Details LastModified Time None Recorded Advance Directives Directive Y: HCP/ Girlfriend-Santa Payers Encounter Date Sequence Insurance Name Policy Number Policy Adorno Covered Member ID Adorno Member ID Guarantor Name 09/19/2018 1 [facility] [place] [id number] Quentin S S Walas [id number] Quentin S Walas 10/20/2018 1 [facility] [place] [id number] Quentin S S Walas [id number] Quentin S Walas 11/17/2018 1 [facility] [place] [id number] Quentin S S Walas [id number] Quentin S Walas 12/19/2018 1 [facility] [place] [id number] Quentin S S Walas [id number] Quentin S Walas 01/03/2019 1 [facility] [place] [id number] Quentin S S Walas [id number] Quentin S Walas Notes Date Note Type Note Provider Name and Address Organization Details Recorded Time 9 text/html Anxiety/DepressionReport ed bypatient.Quality:sympto ms improved Severity:denies suicidal ideations; able to maintain relationships; does not interfere with activities of daily living Duration:symptoms lasting over 2 weeks Context:major life stressors(chronic pain);family problems Associated Symptoms:denies homicidal ideations;weight loss (26 lbs);anxiety;depression; insomnia;sleep disturbancesNotes:Tolera ting venlafaxineDiabetes F/UReported bypatient.Context:taking aspirin daily Associated Symptoms:weight loss (5 lbs)Notes:Seen by nephrology since last visit, restarted metformin. Off of ACEI.Hypertension F/UReported bypatient.Associated Symptoms:no dizziness; no lightheadedness; no chest pain; no shortness of breath; no palpitations; no edema Lifestyle:limiting/avoid ing salt Medications:taking medications as directed; no side effects from medicationNotes:stopped lisinopril. Was seen by both cardiology and nephrology since last visit. Has stress test booked. Insurance would not authorize CT scan of chest/abdomen to screen for occult malignancy. Had US of abdomen and CXR that were only significant for fatty liver, pancreas was not visualized. Pt continues to complain of early satiety. Glynn Hernández MD [address] [facility] [address], [place], [address], [facility] 09/19/2018 13:08:48 9 text/html Generic HPI TemplateReported bypatient.Notes:Here for a physical. Seeing ophtho regularly, no dentist. Glynn Hernández MD [address] [facility] [address], [place], [address], [facility] 10/20/2018 14:55:32 9 text/html Anxiety/DepressionReport ed bypatient.Quality:sympto ms improved Severity:denies suicidal ideations; able to maintain relationships; does not interfere with activities of daily living Duration:symptoms lasting over 2 weeks Context:major life stressors(chronic pain);family problems Associated Symptoms:denies homicidal ideations;weight gain (7 lbs);anxiety;depression; insomnia;sleep disturbancesNotes:Tolera ting venlafaxine wean with start of mirtazapine. No change in his chronic neuropathic pain.Diabetes F/UReported bypatient.Context:taking aspirin daily Associated Symptoms:weight gain (7 lbs)Notes:Back on metformin. Most recent A1C 9.8. Pt has history of chronic pancreatitis. Insurance would not approve abd CT.Hypertension F/UReported bypatient.Associated Symptoms:no dizziness; no lightheadedness; no chest pain; no shortness of breath; no palpitations; no edema Lifestyle:limiting/avoid ing salt Medications:taking medications as directed; no side effects from medicationNotes:s/p CABG 2014. Recent stress testing abnl prompted angiogram which was unremarkable per patient. Mely xie, [facility] 12/05/2018 09:38:48 9 text/html Anxiety/DepressionReport ed bypatient.Quality:sympto ms improved Severity:denies suicidal ideations; able to maintain relationships; does not interfere with activities of daily living Duration:symptoms lasting over 2 weeks Context:major life stressors(chronic pain);family problems Associated Symptoms:denies homicidal ideations; no significant weight gain; no significant weight loss;anxiety;depression; insomnia;sleep disturbancesNotes:Tolera ting mirtazepine well. Weaned off of venlafaxine. No change in chronic pain, and overall sleeping and eating better.Diabetes F/UReported bypatient.Context:taking aspirin daily Associated Symptoms:no weight gain; no weight lossNotes:Has not been on meds for DM. Recent A1C 9.8. Pt has history of chronic pancreatitis but has not followed up with GI, but now has appt in next week.Hypertension F/UReported bypatient.Associated Symptoms:no lightheadedness; no chest pain; no shortness of breath; no palpitations; no edema;dizziness Lifestyle:limiting/avoid ing salt Medications:taking medications as directed; no side effects from medication Glynn Hernández MD [address] [address], [place], [address], [facility] 12/19/2018 11:43:59 9 text/html 63 year old diabetic male for f/u. Pt. has over 5 year h/o Type II Diabetes Mellitus or pancreatitis induced diabetes. He has h/o alcohol use in the past and also acute pancreatic injury after EGD and trauma. He is a poor historian. He has been seen in this office since 2013 with initially A1c of 11.4%. Subsequently diabetes was normalized with meds and well controlled until July of this year when A1c went to 7.6% and 9.8% and today back to 6.7%. Metformin is currently at 1500 mg daily. Pt. is not monitoring his glucose at . DEnies hypoglycemia. DEnies dizziness, weakness, nausea. PT. has DX of symptomatic polyneuropathy with burning, numbness and pain in both hands and lower extremities. CKD stg 3 followed by nephrology on Procrit injections, liver steatosis with currently normal LFTs. Denies ETOH. Currently BMI is 22 at 150 lbs. Pt. reports weight loss of 50 lbs since 2011. Soledad Peck PA-C [address] [address], [place], [address], [facility] 01/03/2019 16:08:47
--- OUTSIDE RECORDS SUMMARY | 2024-07-11 09:18 | XMS_ITS ---
Author Name [facility] Organization Unknown Results Test Name/Text Value Interpretation Date Range Source POC Glucose 76mg/dL Normal [id number] 65 - 99 [facility] POC Glucose 103mg/dL Above high normal [id number] 65 - 99 [facility] Hgb A1c MFr Bld 7.4% Above high normal [id number] - 5 .7 [facility] Est. average glucose Bld gHb Est-mCnc 166mg/dL Normal [id number] [facility] Transferrin SerPl-mCnc 220mg/dL Normal [id number] 200 - 360 [facility] Prealb SerPl-mCnc 16mg/dL Below low normal [id number] 20 - 40 [facility] Calcium SerPl-mCnc 9mg/dL Normal [id number] 8.7 - 10 .5 [facility] BUN SerPl-mCnc 34mg/dL Above high normal [id number] 8 - 21 [facility] Creat SerPl-mCnc 2.1mg/dL Above high normal [id number] 0. 5 - 1.3 [facility] GFR/BSA.pred SerPlBld EGI-EZF-NeLQwr 34 Below low normal [id number] 59 - [facility] Chloride SerPl-sCnc 108mmol/L Above high normal [id number] 98 - 107 [facility] BUN/Creat SerPl 16Ratio Normal [id number] 10 - 25 [facility] CO2 SerPl-sCnc 19mmol/L Below low normal [id number] 22 - 33 [facility] Anion Gap Bld-sCnc 11 Normal [id number] 7 - 17 [facility] Potassium SerPl-sCnc 5.2mmol/L Normal [id number] 3.4 - 5.3 [facility] Glucose SerPl-mCnc 231mg/dL Above high normal [id number] 65 - 99 [facility] Sodium SerPl-sCnc 138mmol/L Normal [id number] 136 - 145 [facility] AST SerPl-cCnc 25U/L Normal [id number] 10 - 55 HH CCT ALP SerPl-cCnc 87U/L Normal [id number] 45 - 128 [facility] ALT SerPl-cCnc 23U/L Normal 10 - 55 [facility] Globulin Ser Calc-mCnc 3.3g/dL Normal [id number] 1.5 - 3.9 [facility] Bilirub Direct SerPl-mCnc 0.2mg/dL Normal 0 - 0.2 [facility] Albumin/Glob SerPl 1.1Ratio Normal 1 - 3 [facility] Albumin SerPl-mCnc 3.7g/dL Normal [id number] 3.4 - 4. 8 [facility] Prot SerPl-mCnc 7g/dL Normal 6.3 - 8.3 [facility] Bilirub SerPl-mCnc 0.2mg/dL Normal [id number] 0.2 - 1 [facility] INR PPP 1 Normal [id number] [facility] Prothrombin time 11.7seconds Normal [id number] 10 - 13. 5 [facility] Neutrophils num Bld Auto 3.26Thou/uL Normal [id number] 2 - 7.5 [facility] Monocytes num Bld Auto 0.61Thou/uL Normal [id number] 0. 2 - 1.5 [facility] Eosinophil num Bld Auto 0.17Thou/uL Normal [id number] 0 - 0.7 [facility] WBC num Bld Auto 5.9Thou/uL Normal [id number] 4 - 11 [facility] MCHC RBC Auto-mCnc 31.7g/dL Normal [id number] 30 - 36 [facility] Monocytes/leuk NFr Bld Auto 10.4% Normal [id number] [facility] Hct VFr Bld Auto 36.6% Below low normal [id number] 39 - 54 [facility] RBC num Bld Auto 3.69Mil/uL Below low normal [id number] 4. 5 - 6.2 [facility] RDW RBC Auto-Rto 13.9% Normal [id number] 11.5 - 14. 5 [facility] PMV Bld Auto 12.4fL Normal [id number] 7.5 - 12.[address] Eosinophil/leuk NFr Bld Auto 2.9% Normal [id number] [facility] MCH RBC Qn Auto 31.4pg Above high normal [id number] 27 - 31 [facility] Basophils/leuk NFr Bld Auto 0.5% Normal [id number] [facility] Basophils num Bld Auto 0.03Thou/uL Normal [id number] 0 - 0.2 [facility] Platelet num Bld Auto 106Thou/uL Below low normal [id number] 150 - 450 [facility] Neutrophils/leuk NFr Bld Auto 55.5% Normal [id number] [facility] MCV RBC Auto 99fL Normal [id number] 80 - 100 [facility] T Lymphocytes/leuk NFr Bld Auto 30.4% Normal [id number] [facility] Lymphocytes num Bld Auto 1.79Thou/uL Normal [id number] 1.5 - 4.5 [facility] Imm Granulocytes/leuk NFr Bld Auto 0.3% Normal [id number] [facility] Hgb Bld-mCnc 11.6g/dL Below low normal [id number] 13 - 17 .7 [facility] Imm Granulocytes num Bld Auto 0.02Thou/uL Normal [id number] 0 - 0.1 [facility] Anticoagulant Normal [id number] [facility] History of Medication Use Medication Directions Dispensed Refills Start Date End Date Stat methocarbamol (ROBAXIN) 500 MG tablet Take 1 tablet (500 mg total) by mouth 2 (two) times a day as needed for muscle spasms. 02/10/2024 active acetaminophen (TYLENOL) 500 MG tablet Take 1 tablet (500 mg total) by mouth 4 times daily (every 6 hours) as needed for mild pain or moderate pain. 02/10/2024 active oxyCODONE (ROXICODONE) 5 MG immediate release tablet Take 1 tablet (5 mg total) by mouth 4 times daily (every 6 hours) as needed for severe pain. Max Daily Amount: 20 mg 02/10/2024 active sulfamethoxazole-trime thoprim (BACTRIM DS,SEPTRA DS) 800-160 MG per tablet Take 1 tablet by mouth 2 (two) times a day. 02/10/2024 active aspirin enteric coated (ECOTRIN LOW STRENGTH) 81 MG EC tablet Take 1 tablet (81 mg total) by mouth 2 times a day. With Food Post op 02/10/2024 active pancrelipase (Creon) [address] Particles Take 1 capsule (24,000 Units total) by mouth 3 (three) times a day with meals. 01/15/2024 active insulin glargine (Lantus SoloStar) 100 units/mL prefilled pen injection Inject 17 Units under the skin every morning. 01/15/2024 active pregabalin (Lyrica) 50 MG capsule Take 3 capsules (150 mg total) by mouth 3 (three) times a day. 01/15/2024 active atorvastatin (LIPITOR) 20 MG tablet Take 1 tablet (20 mg total) by mouth nightly. 01/15/2024 active insulin aspart protamine-insulin aspart (NovoLOG MIX 70/30) (70-30) 100 units/mL injection Inject under the skin 2 (two) times a day before meals. Per sliding scale 01/15/2024 active thiamine (VITAMIN B-1) 100 mg tablet Take 1 tablet (100 mg total) by mouth daily. 01/15/2024 active calcitRIOL (ROCALTROL) 0.25 MCG capsule Take 1 capsule (0.25 mcg total) by mouth every morning. 01/15/2024 active multivitamin Tab tablet Take 1 tablet by mouth daily. 01/15/2024 active spironolactone (ALDACTONE) 25 MG tablet Take 1 tablet (25 mg total) by mouth every morning. 01/15/2024 active nitroglycerin (NITROSTAT) 0.[address] 1 tablet as needed by sublingual route. 01/15/2024 active sodium bicarbonate 650 MG tablet Take 1 tablet (650 mg total) by mouth 2 (two) times a day. 01/15/2024 active aspirin 81 MG chewable tablet Chew 1 tablet every day by oral route. 01/15/2024 active Problems Problem Status Onset Date Problem Type Date of Resolution Source Dilation of aorta active 2024-01-10 ProblemAct [facility] Alcoholic cirrhosis active 2024-01-08 ProblemAct [facility] Peripheral polyneuropathy active 2024-01-08 ProblemAct [facility] Gastroesophageal reflux disease without esophagitis active 2024-01-08 ProblemAct [facility] Type 2 diabetes mellitus without complication, without long-term current use of insulin active 2024-01-08 ProblemAct [facility] Pure hypercholesterolemia active 2024-01-08 ProblemAct [facility] Anxiety and depression active 2024-01-08 ProblemAct [facility] Pancreatic insufficiency active 2024-01-08 ProblemAct [facility] Coronary artery disease involving t[place] heart without angina pectoris active 2024-01-08 ProblemAct [facility] T History of alcohol abuse active 2024-01-08 ProblemAct [facility] Essential hypertension active 2024-01-08 ProblemAct [facility] Acute osteomyelitis of right ankle or foot active 2024-01-08 ProblemAct [facility] Painful orthopaedic hardware active 2024-01-08 ProblemAct [facility] Osteomyelitis active 2024-02-03 ProblemAct [facility] T Hallux valgus (acquired), left foot active EncounterDiagnosisAct [facility]
--- OUTSIDE RECORDS SUMMARY | 2024-07-11 09:18 | XMS_ITS | Patient Health Record ---
Author Organization [facility] Address [address] [place] [address] Care Team Providers Care Address Change Clerk Name Role Phone Reg[facility] CONKLIN, [facility] Primary [facility] Provider Ni Almanza Unavailable [phone] Zhang Luis Unavailable [phone] Allergies Allergen (clinical drug ingredient) Drug/Non Drug Allergy documented on EMR Reaction Allergy Type Onset Date Status codeine Codeine Sulfate rapid pulse, shortness of breath, hypertation, sweats Drug Allergy Active Results Component Value Reference Range Notes HEMOGLOBIN A1C (GLYCOHEMOGLO BIN) Reviewed date:02/24/2024 09:09:03 AM Interpretation: Performing Lab: Notes/Report: HEMOGLOBIN A1C % (HH) 7.1 HEMOGLOBIN A1C (GLYCOHEMOGLO BIN) Reviewed date:09/29/2023 11:07:05 AM Interpretation: Performing Lab: Notes/Report: HEMOGLOBIN A1C % (HH) 7.6 HEMOGLOBIN A1C (GLYCOHEMOGLO BIN) Reviewed date:09/29/2023 11:00:40 AM Interpretation: Performing Lab: Notes/Report: Reason For Referral No Information Medications Medication SIG (Take, Route, Frequency, Duration) Notes Start Date End Date Status Pregabalin 100 MG 1 capsule Orally Three times a day Active Metoprolol Succinate ER 50 MG 1 tablet Orally Once a day Not-Taking Calcitriol 0.25 MCG 1 capsule Orally Three times a Week Active Insulin Cartridge 3ML Not-Taking Levemir Active Antibiotic Not-Takin g NovoLOG sliding scale Active Extra Depth Diabetic Shoes with 3 Pair Custom heat-molded multi-density innersoles for 1 year Dx: 02/25/2021 Not-Taking Spironolactone 25 MG 1 tablet Orally for 30 day(s) Active Ferrous Sulfate 325 (65 Fe) MG 1 tablet Orally Once a day Not-Taking Creon Active Folic Acid 1 MG Oral for 90 No t-Taking Atorvastatin Calcium 20 MG 1 tablet Orally Once a day Active Gabapentin 600 MG Oral for 90 Not-Taking Aspirin 81 MG 1 tablet Orally Once a day Active glyBURIDE 5 MG Oral for 30 Not -Taking Extra Depth Diabetic Shoes with 3 Pair Custom heat-molded multi-density innersoles for 1 year Dx: Active Multivitamins Orally Active glipiZIDE Not-Taking Vitamin C Not-Taking Lyrica 50 MG 1 capsule Orally Three times a day Not-Taking Ketostix In Vitro for 50 Not- Taking Vitamin B-1 100 MG 1 tablet Orally Once a day for 30 day(s) Not-Taking metFORMIN HCl 1000 MG Oral for 30 Not-Taking Zenpep Not-Taking Lisinopril 20 MG Oral for 90 N ot-Taking Zolpidem Tartrate No t-Taking Physical Therapy . . . 2-3x/week for 3-4 weeks 03/01/2014 Not-Taking Enulose Not-Taking Nitrostat 0.4 MG Sublingual No t-Taking Furosemide 40 MG 1 tablet Orally Once a day for 30 day(s) Not-Taking Lactulose Not-Taking Physical Therapy . . . 2-3x/week for 3-4 weeks Not-Taking Omeprazole 40 MG 1 capsule 30 minutes before morning meal Orally Once a day for 30 day(s) Not-Taking Basaglar KwikPen Not -Taking Amoxicillin Active Doxycycline Hyclate Active Tamsulosin HCl 0.4 MG 1 capsule Orally Once a day for 30 day(s) Not-Taking Sodium Bicarbonate 650 MG as directed Orally Active FreeStyle Lancets for 90 No t-Taking FreeStyle Lite Test In Vitro for 90 Not-Taking Immunizations Vaccine Route Administration Date Status Comme nts COVID-19 Pfizer BioNTBuyapowa Vaccine Unknown 04/25/2021 Administered 1st 09/18/2020 2nd 10/09/2020 Influenza Unknown 03/25/2020 Administered Influenza Unknown 04/25/2023 Administered Social History Tobacco Use: Social History Observation [...] Are you an other tobacco user? No Problems Problem Type SNOMED Code ICD Code Onset Dates Problem Status W/U Status Risk Notes Problem Acquired hallux valgus (95058758) Hallux valgus (acquired), left foot (M20.12) Active confirmed Problem Chronic ulcer of foot (774652684) Non-pressure chronic ulcer of other part of left foot with fat layer exposed (L97.522) Active confirmed Problem Polyneuropathy due to type 2 diabetes mellitus (548608228) Type 2 diabetes mellitus with diabetic polyneuropathy (E11.42) Active confirmed Problem Non-pressure chronic ulcer of other part of left foot limited to breakdown of skin (L97.521) Active confirmed Problem Polyneuropathy due to type 2 diabetes mellitus (440427234) Type 2 diabetes mellitus with diabetic polyneuropathy (E11.42) Active confirmed Problem Polyneuropathy due to diabetes mellitus type I (395003637) Type 1 diabetes mellitus with diabetic polyneuropathy (E10.42) Active confirmed Problem Acquired hallux rigidus (6364116) Hallux rigidus, right foot (M20.21) Active confirmed Vital Signs Height 5ft 11in in 05/04/2024 Weight 155 lbs 05/04/2024 BMI 21.62 kg/m2 05/04/2024 Procedures Procedure Date Ordered Date Performed Result Body Sit e 30919-QYAHHBQ SKIN/TISSUE 10/07/2023 N/A Encounters Encounter Location Date Provider Diagnosis [facility] [address] [address] 09/29/2023 Zhang Luis Type 1 diabetes mellitus with diabetic polyneuropathy E10.42 ; Tinea unguium B35.1 ; Pain in right toe(s) M79.674 ; Pain in left toe(s) M79.675 ; Skin disease L98.9 ; Hallux valgus (acquired), left foot M20.12 ; Hallux rigidus, right foot M20.21 ; Localized edema R60.0 ; Pain in left foot M79.672 ; Pain in right foot M79.671 and Non-pressure chronic ulcer of other part of left foot limited to breakdown of skin L97.521 [facility] [address] [address] 10/07/2023 Zhang Luis Type 1 diabetes mellitus with diabetic polyneuropathy E10.42 ; Tinea unguium B35.1 ; Pain in right toe(s) M79.674 ; Pain in left toe(s) M79.675 ; Skin disease L98.9 ; Hallux valgus (acquired), left foot M20.12 ; Hallux rigidus, right foot M20.21 ; Localized edema R60.0 ; Pain in left foot M79.672 ; Pain in right foot M79.671 ; Non-pressure chronic ulcer of other part of left foot limited to breakdown of skin L97.521 and Exposed orthopaedic hardware T84.498A [facility] [address] 12/16/2023 Zhang Luis Type 1 diabetes mellitus with diabetic polyneuropathy E10.42 ; Tinea unguium B35.1 ; Pain in right toe(s) M79.674 ; Pain in left toe(s) M79.675 ; Skin disease L98.9 ; Hallux valgus (acquired), left foot M20.12 ; Hallux rigidus, right foot M20.21 ; Localized edema R60.0 ; Pain in left foot M79.672 ; Pain in right foot M79.671 and Non-pressure chronic ulcer of other part of left foot limited to breakdown of skin L97.521 [facility] [address] [address] 02/24/2024 Zhang Luis Type 1 diabetes mellitus with diabetic polyneuropathy E10.42 ; Tinea unguium B35.1 ; Pain in right toe(s) M79.674 ; Pain in left toe(s) M79.675 ; Hallux valgus (acquired), left foot M20.12 ; Skin disease L98.9 ; Hallux rigidus, right foot M20.21 ; Localized edema R60.0 ; Pain in left foot M79.672 and Pain in right foot M79.[address] [address] 05/04/2024 Zhang Luis Type 1 diabetes mellitus with diabetic polyneuropathy E10.42 ; Tinea unguium B35.1 ; Pain in right toe(s) M79.674 ; Pain in left toe(s) M79.675 ; Hallux valgus (acquired), left foot M20.12 ; Skin disease L98.9 ; Hallux rigidus, right foot M20.21 ; Localized edema R60.0 ; Pain in left foot M79.672 and Pain in right foot M79.[address] [facility] [address] 09/19/[address] [address] 09/29/2023 [facility] Luis [address] [address] 12/16/2023 ZhangBrown Type 1 diabetes mellitus with diabetic polyneuropathy E10.[address] [address] 12/21/2023 Zhang Luis Assessments Encounter Date Diagnosis (ICD Code) Assessment Notes Treatment Notes Treatment Clinical Notes Section Notes 09/29/2023 Type 1 diabetes mellitus with diabetic polyneuropathy (ICD-10 - E10.42) 10/07/2023 Type 1 diabetes mellitus with diabetic polyneuropathy (ICD-10 - E10.42) 12/16/2023 Type 1 diabetes mellitus with diabetic polyneuropathy (ICD-10 - E10.42) 12/16/2023 Type 1 diabetes mellitus with diabetic polyneuropathy (ICD-10 - E10.42) 02/24/2024 Type 1 diabetes mellitus with diabetic polyneuropathy (ICD-10 - E10.42) 05/04/2024 Type 1 diabetes mellitus with diabetic polyneuropathy (ICD-10 - E10.42) 05/04/2024 Tinea unguium (ICD-10 - B35.1) 02/24/2024 Tinea unguium (ICD-10 - B35.1) 12/16/2023 Tinea unguium (ICD-10 - B35.1) 10/07/2023 Tinea unguium (ICD-10 - B35.1) 09/29/2023 Tinea unguium (ICD-10 - B35.1) 09/29/2023 Pain in right toe(s) (ICD-10 - M79.674) 10/07/2023 Pain in right toe(s) (ICD-10 - M79.674) 12/16/2023 Pain in right toe(s) (ICD-10 - M79.674) 02/24/2024 Pain in right toe(s) (ICD-10 - M79.674) 05/04/2024 Pain in right toe(s) (ICD-10 - M79.674) 05/04/2024 Pain in left toe(s) (ICD-10 - M79.675) 02/24/2024 Pain in left toe(s) (ICD-10 - M79.675) 12/16/2023 Pain in left toe(s) (ICD-10 - M79.675) 10/07/2023 Pain in left toe(s) (ICD-10 - M79.675) 09/29/2023 Pain in left toe(s) (ICD-10 - M79.675) 09/29/2023 Hallux valgus (acquired), left foot (ICD-10 - M20.12) 10/07/2023 Hallux valgus (acquired), left foot (ICD-10 - M20.12) 09/29/2023 Skin disease (ICD-10 - L98.9) 12/16/2023 Hallux valgus (acquired), left foot (ICD-10 - M20.12) 10/07/2023 Skin disease (ICD-10 - L98.9) 12/16/2023 Skin disease (ICD-10 - L98.9) 02/24/2024 Skin disease (ICD-10 - L98.9) 02/24/2024 Hallux valgus (acquired), left foot (ICD-10 - M20.12) 05/04/2024 Hallux valgus (acquired), left foot (ICD-10 - M20.12) 05/04/2024 Skin disease (ICD-10 - L98.9) 12/16/2023 Hallux rigidus, right foot (ICD-10 - M20.21) 02/24/2024 Hallux rigidus, right foot (ICD-10 - M20.21) 10/07/2023 Hallux rigidus, right foot (ICD-10 - M20.21) 09/29/2023 Hallux rigidus, right foot (ICD-10 - M20.21) 09/29/2023 Localized edema (ICD-10 - R60.0) 10/07/2023 Localized edema (ICD-10 - R60.0) 02/24/2024 Localized edema (ICD-10 - R60.0) 12/16/2023 Localized edema (ICD-10 - R60.0) 05/04/2024 Hallux rigidus, right foot (ICD-10 - M20.21) 05/04/2024 Localized edema (ICD-10 - R60.0) 10/07/2023 Pain in left foot (ICD-10 - M79.672) 12/16/2023 Pain in left foot (ICD-10 - M79.672) 02/24/2024 Pain in left foot (ICD-10 - M79.672) 09/29/2023 Pain in left foot (ICD-10 - M79.672) 09/29/2023 Pain in right foot (ICD-10 - M79.671) 10/07/2023 Pain in right foot (ICD-10 - M79.671) 12/16/2023 Pain in right foot (ICD-10 - M79.671) 02/24/2024 Pain in right foot (ICD-10 - M79.671) 05/04/2024 Pain in left foot (ICD-10 - M79.672) 05/04/2024 Pain in right foot (ICD-10 - M79.671) 12/16/2023 Non-pressure chronic ulcer of other part of left foot limited to breakdown of skin (ICD-10 - L97.521) 10/07/2023 Non-pressure chronic ulcer of other part of left foot limited to breakdown of skin (ICD-10 - L97.521) 09/29/2023 Non-pressure chronic ulcer of other part of left foot limited to breakdown of skin (ICD-10 - L97.521) 10/07/2023 Exposed orthopaedic hardware (ICD-10 - T84.498A) Plan Of Treatment Pending Test Test Name Order Date X ray : Foot, left 2V 01/08/2014 X ray : Foot, right 2V 01/08/2014 X ray : Foot, left 3V 02/25/2021 X ray : Foot, right 3V 02/25/2021 X ray : Foot, right 3V 12/31/2022 33120-TMOEEIK SKIN/TISSUE 10/07/2023 33431-IEGQFGL SKIN/TISSUE 04/30/2021 12638-ODYOUIH SKIN/TISSUE 08/03/2021 95967-EMEN SKIN LESIONS, 2 TO 4 08/03/19 22 23420-RCQI SKIN LESIONS, 2 TO 4 04/30/20 21 52595-KUWV SKIN LESIONS, 2 TO 4 02/26/20 21 76831-TXENJFCL OF HEMATOMA/FLUID 022 Next Appt Details Provider Name:Ni Lee perla, 07/12/2024 09:45:00 AM, [address] [place], [address], Insurance Providers Payer Name Payer Address Payer Phone Subscriber Number Group Number Insured Name Patient Relationship to Insured Coverage Start Date Coverage End Date Medicare National [employer] [address] [facility] [place] [address] [id number] Quentin Lara Self - patient is the insured [facility] [address] [place] [address] [id number] Quentin Lara Self - patient is the insured Medical (General) History Medical History History ICD Code Anemia Coronary artery disease Hypertension Neuropathy Hypercholesterolemia Myocardial infarction Pancreatitis Pneumonia type II diabetes Reflux Arthritis Broken bones Heart disease Poor circulation Warts Measles Chicken pox Vascular grafts Joint implants/screws Hearing loss Anxiety Back,Hip,and Knee pain Cataracts Osteoporosis High blood pressure ulcer Transfusions Surgical History Surgery Date(Month/Year) right foot surgery 2010 angioplasty of carotid artery: intracran ial angioplasty left rotator cuff tear repair 2013 Heart stent 2000, 2011 open heart /triple bypass 09/2014 [facility] sx 05/2021 Cataract Surgery 06/16 Eye surgery -cataract slipped behind eye ball 07/16 eye surgery, bitractomy 11/10/23 left foot surgery, hardware removed from previous bunion surgery 02/03/24 Hospitalization History Reason Date(Month/Year) [facility] - pneumonia 06/2013--14 [facility] ER- Coundn't get up/lanre d -KidneyLiver failure-swelling/Infection ICU few weeks -rehab 6wks 05/29/2021 [facility]- stent, kidney sones, 3 day stay 01/23 04/15
--- NOTE | 2024-07-11 09:20 | A.OFFPC_ITS ---
Vital Signs 07/11/24 09:21 Height 5 ft 11 in Weight 153 lb BMI 21.3 BP 120/76 Blood Pressure Location Lt brachial Position Sitting Pulse 74 Pulse Source Pulse Oximeter Pulse Oximetry (%) 97 Oxygen Delivery Method Room Air Intake Visit Reasons: Followup Allergies codeine Allergy (Unknown, Verified 07/11/24 09:22) Unknown Medication List - Last Reconciled 07/11/24 by Rufino Rajput MD aspirin 81 mg PO BEDTIME atorvastatin 20 mg PO DAILY 90 days blood-glucose meter As directed insulin aspart U-100 (Novolog FlexPen U-100 Insulin aspart) 6 - 9 sliding scale doses subcut BID insulin detemir U-100 (Levemir FlexPen) 17 units subcut DAILY lancets As directed [id number]-[id number]-[id number] 24,000-76,000 -120,000 unit (Creon) 1 cap PO TID 90 days multivitamin 1 tab PO DAILY pen needle, diabetic B.i.d. pregabalin 150 mg PO TID spironolactone 25 mg PO DAILY thiamine mononitrate (vit B1) 100 mg PO DAILY 90 days Tobacco use date assessed: 07/11/24 Dental Screening Dental Screen Date: 04/06/24 HPI Followup HPI Details Assessment and Plan 68-year-old male with a history of diabe rachelle mellitus, hypertension, chronic kidney disease, presenting for a follow-up on current medical management. The patient has a history of bone surgery with hardware removal from the foot, previously treated with multiple antibiotics. He continues to manage diabetes, hypercholesterolemia, and neuropathy. . 2. Diabetic Neuropathy Continue current medication regimen with Lyrica for neuropathy pain management. Monitor effectiveness and side effects. 3. Diabetes Mellitus Blood glucose levels and HbA1c are stable. Continue current insulin therapy and monitor blood sugar levels regularly. Plan follow-up with the institutional aide. 4. Hypercholesterolemia Continue statin therapy for cholesterol management, review lipid panel regularl y. 5. Hypertension Maintain current antihypertensive management. Monitor blood pressure regularly. Discuss any modifications based on gage designer recommendations. 6. Chronic Kidney Disease Patient to follow up with gage designer for kidney function assessment. Recent GFR tracking shows declining function ( 27). Monitor electrolyte levels, reassess medication regimen through Nephrology 7. Depression No current pharmacological management needed for mood disturbances. Monitor patient-reported mood changes and provide support as needed. Diagnostic results - Labs: Most recent HbA1c controlled. - Kidney function tracking shows decline from high 60s to 27 in recent tests. Problem List - Diabetes Mellitus - Chronic Kidney Disease - Hypertension - Diabetic Neuropathy - Hypercholesterolemia - Depression Medications - Insulin for Diabetes Mellitus - Cholesterol medication for Hypercholes terolemia - Lyrica for Diabetic Neuropathy - Spironolactone for Hypertension and po tential fluid retention management [facility] Patient to continue care with institutional aide and gage designer, upcoming visits scheduled. Coordination with infective disease specialist and ongoing monitoring by primary care physician. Review of Systems - General: Reports recent bone surgery w ith hardware removal right foot - Gastrointestinal: Reports gastrointest inal upset with previous antibiotic use - Musculoskeletal: Reports neuropathy-re lated pain - Skin: Reports easy bruising and bleedi ng - Psychiatric: Reports stable mood, no c urrent use of antidepressants General: No fever no chills neurological: No headaches no dizziness ear nose throat: No sore throat no hearing difficulty no ear pain cardiovascular: No syncope, no chest pain, no palpitations gastrointestinal: No nausea vomiting or diarrhea endocrine: No polyuria polydipsia no heat intolerance genitourinary: No dysuria skin: No new complaints Physical Exam general: No acute distress HEENT: No acute findings neck: Supple respiratory system: Able to talk in full sentences, no audible wheeze no stridor cardiovascular: S1-S2 gastrointestinal: No pain extremities: superficial scratch from dog bite noted right hand dorsal aspect MUSIC VIDEO DIRECTOR: Alert awake oriented x3 motor sensory intact skin: Normal turgor Patient Instructions - Continue prescribed medications, monit oring for side effects. - Monitor blood glucose levels regularly and report any significant changes. - Attend scheduled appointments with spe cialists for further evaluation. - Monitor any changes in the condition o f the skin, particularly after the dog scratch. - packing and wrapping supervisor lab test reports as discussed and provide them to all relevant healthcare providers. - If signs of infection appear, such as increased redness or discharge, present to the walk-in clinic immediately. Follow-up 4 months [facility] Medical History Ascites Chronic kidney disease GERD (gastroesophageal reflux disease) Macrocytic anemia Chronic diabetic ulcer of right foot determined by examination Anemia Osteomyelitis Hearing difficulty Neuropathy Cataracts, bilateral Bunion Heart attack CAD (coronary artery disease) High cholesterol Diabetes Hypertension Surgical History History of esophagogastroduodenoscopy (EGD) H/O colonoscopy Hx of heart artery stent Hx of cystoscopy Hx of endoscopy History of bunionectomy of right great toe H/O rotator cuff surgery H/O heart bypass surgery Family History Sister HTN (hypertension) Sister HTN (hypertension) Father Heart disease Heart attack Mother Kidney failure Social History Household Members: Significant Other Housing: Condominium Are you a primary child care lead teacher to a significant other at home: No Do you presently have visiting nurse or other home services: No Alcohol intake: current Alcohol intake frequency: former alcohol drinker Alcohol type: beer Patient Tobacco Use Status: Former Tobacco user Tobacco use type: Cigarette Cigarette Packs Per Day: 1 Cigarettes Per Day: 20 Years Smoked: 15 e-Cigarette/Vaping Use: Never Used Substance Use Type: Marijuana service: No Current occupational status: unemployed Cognitive needs: No Hearing needs: Yes Vision needs: No Questionnaire Thrive Questionnaire Date Thrive assessed: 04/06/24 I am a: Patient What is your living situation today?: I have a steady place to live Within the past 12 months, did the food you bought not last and you didn't have the money to get more?: Never true Within the past 12 months, did you worry whether your food would run out before you got money to buy more?: Never true Do you have trouble paying for medicines?: No Do you have trouble getting transportation to medical appointments?: No Do you have trouble paying your heating and electricity bill?: No Do you have trouble taking care of your child, family member or friend?: No Do you have trouble with day-to-day activities such as bathing, preparing meals, shopping, managing finances, etc.?: No Are you currently unemployed and looking for a job?: No Are you interested in more education?: No Please select the resources that you would like help with: None Currently or been in a relationship where the following occur: No concerns reported THRIVE Score: 0 AUDIT C Alcohol Use Questionnaire (AUDIT-C) 1. How often do you have a drink containing alcohol?: Never Total Score: 0 STANISLAV-7 AMB Questionnaire STANISLAV-7 Date STANISLAV - 7 assessed: 04/06/24 Feeling nervous, anxious, or on edge: 1 = Several days Not being able to stop or control worryin = Several days Worrying too much about different things: 1 = Several days Trouble relaxin = Several days Being so restless that it is hard to sit still: 0 = Not at all Becoming easily annoyed or irritable: 1 = Several days Feeling afraid as if something awful might happen: 1 = Several days Total STANISLAV-7 score (0-4 normal; 5-9 mild; 10-14 moderate; 15-21 severe): 6 Source: Developed by Drs. Ted Hong, Mera Davenport, Jayro Elizabeth and colleagues, with an educational steffany from [employer] Physical exam (Primary Care) Vital Signs: Last Vital Signs Pulse 74 07/11/24 09:21 BP 120/76 07/11/24 09:21 Pulse Ox 97 07/11/24 09:21 Oxygen Delivery Method Room Air 07/11/24 09:21 BMI result Body Mass Index 21.3 Tobacco/Smoking Status: Tobacco use Status Tobacco use date assessed 07/11/24 07/11/24 09:28 Patient Tobacco Use Status Former Tobacco user 07/11/24 09:21 Tobacco use type Cigarette 07/11/24 09:21 e-Cigarette/Vaping Use Never Used 07/11/24 09:21 Thrive Assessment: Date of Thrive Assessment Date Thrive assessed 04/06/24 07/11/24 09:21 Currently or been in a relationship where the following occur: No concerns reported Coding Level of Care Code Est Pt Level 5 (24862) Diagnoses 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 condition E08.21 Lipid disorder E78.9 Alcoholic liver disease K70.9 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 Cardiomyopathy type: alcoholic Alcoholic cirrhosis of liver with ascites K70.31 Painful diabetic neuropathy E11.40 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 E10.49 Diabetes mellitus complication status: with neurologic complications Diabetes mellitus complication detail: with other neurological complication Assessment & Plan Assessment & Plan (1) 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 condition: Code(s): E08.21 - Diabetes mellitus due to underlying condition with diabetic nephropathy Category: Medical (2) Lipid disorder: Code(s): E78.9 - Disorder of lipoprotein metabolism, unspecified Category: Medical (3) Alcoholic liver disease: Code(s): K70.9 - Alcoholic liver disease, unspecified Category: Medical (4) Cardiomyopathy: Code(s): I42.9 - Cardiomyopathy, unspecified Category: Medical Qualifiers: Cardiomyopathy type: alcoholic Qualified Code(s): I42.6 - Alcoholic cardiomyopathy (5) Alcoholic cirrhosis of liver with ascites: Code(s): K70.31 - Alcoholic cirrhosis of liver with ascites Category: Medical (6) Painful diabetic neuropathy: Code(s): E11.40 - Type 2 diabetes mellitus with diabetic neuropathy, unspecified Category: Medical (7) Insulin dependent type 1 diabetes mellitus: Code(s): E10.9 - Type 1 diabetes mellitus without complications Category: Medical Qualifiers: Diabetes mellitus complication status: with neurologic complications Diabetes mellitus complication detail: with other neurological complication Qualified Code(s): E10.49 - Type 1 diabetes mellitus with other diabetic neuro logical complication Plan Assessment and Plan 68-year-old male with a history of diabetes mellitus, hypertension, chronic kidney disease, presenting for a follow-up on current medical management. The patient has a history of bone surgery with hardware removal from the foot, previously treated with multiple antibiotics. He continues to manage diabetes, hypercholesterolemia, and neuropathy. 1. Coronary artery disease management through Cardiology 2. Diabetic Neuropathy Continue current medication regimen with Lyrica for neuropathy pain management. Monitor effectiveness and side effects. 3. Diabetes Mellitus Blood glucose levels and HbA1c are stable. Continue current insulin therapy and monitor blood sugar levels regularly. Plan follow-up with the institutional aide. 4. Hypercholesterolemia Continue statin therapy for cholesterol management, review lipid panel regularly. 5. Hypertension Maintain current antihypertensive management. Monitor blood pressure regularly. Discuss any modifications based on gage designer recommendations. 6. Chronic Kidney Disease Patient to follow up with gage designer for kidney function assessment. Recent GFR tracking shows declining function ( 27). Monitor electrolyte levels, reassess medication regimen through Nephrology 7. Depression No current pharmacological management needed for mood disturbances. Monitor patient-reported mood changes and provide support as needed. Diagnostic results - Labs: Most recent HbA1c controlled. - Kidney function tracking shows decline from high 60s to 27 in recent tests. Problem List - Diabetes Mellitus - Chronic Kidney Disease - Hypertension - Diabetic Neuropathy - Hypercholesterolemia - Depression Medications - Insulin for Diabetes Mellitus - Cholesterol medication for Hypercholesterolemia - Lyrica for Diabetic Neuropathy - Spironolactone for Hypertension and potential fluid retention management [facility] Gastroenterology [facility] for liver cirrhosis Dr vidal And endocrinology [facility] for diabetes management. Dr Duarte Nephrology: Dr Les Dunlap Cardio : Dr Galeana Urology Dr Mora Pain managment [facility] Ophthalmology Dr. Ching Podiatry Dr. Luis Review of Systems - General: Reports recent bone surgery with hardware removal right foot - Gastrointestinal: Reports gastrointestinal upset with previous antibiotic use - Musculoskeletal: Reports neuropathy-related pain - Skin: Reports easy bruising and bleeding - Psychiatric: Reports stable mood, no current use of antidepressants General: No fever no chills neurological: No headaches no dizziness ear nose throat: No sore throat no hearing difficulty no ear pain cardiovascular: No syncope, no chest pain, no palpitations gastrointestinal: No nausea vomiting or diarrhea endocrine: No polyuria polydipsia no heat intolerance genitourinary: No dysuria skin: No new complaints Physical Exam general: No acute distress HEENT: No acute findings neck: Supple respiratory system: Able to talk in full sentences, no audible wheeze no stridor cardiovascular: S1-S2 gastrointestinal: No pain extremities: superficial scratch from dog bite noted right hand dorsal aspect MUSIC VIDEO DIRECTOR: Alert awake oriented x3 motor sensory intact skin: Normal turgor Patient Instructions - Continue prescribed medications, monitoring for side effects. - Monitor blood glucose levels regularly and report any significant changes. - Attend scheduled appointments with specialists for further evaluation. - Monitor any changes in the condition of the skin, particularly after the dog scratch. - packing and wrapping supervisor lab test reports as discussed and provide them to all relevant healthcare providers. - If signs of infection appear, such as increased redness or discharge, present to the walk-in clinic immediately. Follow-up 4 months 45 minutes spent in care of this patient Orders: Orders Complete Blood Count Auto Diff Today E08.21 - Diabetes mellitus due to underlying condition with diabetic nephropathy, E10.9 - Type 1 diabetes mellitus without complications, E11.40 - Type 2 diabetes mellitus with diabetic neuropathy, unspecified, E78.9 - Disorder of lipoprotein metabolism, unspecified, I42.6 - Alcoholic cardiomyopathy, K70.31 - Alcoholic cirrhosis of liver with ascites, K70.9 - Alcoholic liver disease, unspecified Comprehensive Met. Panel Today E08.21 - Diabetes mellitus due to underlying condition with diabetic nephropathy, E10.9 - Type 1 diabetes mellitus without complications, E11.40 - Type 2 diabetes mellitus with diabetic neuropathy, unspecified, E78.9 - Disorder of lipoprotein metabolism, unspecified, I42.6 - Alcoholic cardiomyopathy, K70.31 - Alcoholic cirrhosis of liver with ascites, K70.9 - Alcoholic liver disease, unspecified LDL Cholesterol Direct Today E08.21 - Diabetes mellitus due to underlying condition with diabetic nephropathy, E10.9 - Type 1 diabetes mellitus without complications, E11.40 - Type 2 diabetes mellitus with diabetic neuropathy, unspecified, E78.9 - Disorder of lipoprotein metabolism, unspecified, I42.6 - Alcoholic cardiomyopathy, K70.31 - Alcoholic cirrhosis of liver with ascites, K70.9 - Alcoholic liver disease, unspecified TSH reflex Free T4 Today E08.21 - Diabetes mellitus due to underlying condition with diabetic nephropathy, E10.9 - Type 1 diabetes mellitus without complica tions, E11.40 - Type 2 diabetes mellitus with diabetic neuropathy, unspecified, E78.9 - Disorder of lipoprotein metabolism, unspecified, I42.6 - Alcoholic cardiomyopathy, K70.31 - Alcoholic cirrhosis of liver with ascites, K70.9 - Alcoholic liver disease, unspecified Hemoglobin A1c Today E08.21 - Diabetes mellitus due to underlying condition with diabetic nephropathy, E10.9 - Type 1 diabetes mellitus without complications, E11.40 - Type 2 diabetes mellitus with diabetic neuropathy, unspecified, E78.9 - Disorder of lipoprotein metabolism, unspecified, I42.6 - Alcoholic cardiomyopathy, K70.31 - Alcoholic cirrhosis of liver with ascites, K70.9 - Alcoholic liver disease, unspecified Vitamin D 25-OH (D2 and D3) Today E08.21 - Diabetes mellitus due to underlying condition with diabetic nephropathy, E10.9 - Type 1 diabetes mellitus without complications, E11.40 - Type 2 diabetes mellitus with diabetic neuropathy, unspecified, E78.9 - Disorder of lipoprotein metabolism, unspecified, I42.6 - Alcoholic cardiomyopathy, K70.31 - Alcoholic cirrhosis of liver with ascites, K70.9 - Alcoholic liver disease, unspecified Vitamin B12 Today E08.21 - Diabetes mellitus due to underlying condition with diabetic nephropathy, E10.9 - Type 1 diabetes mellitus without complications, E11.40 - Type 2 diabetes mellitus with diabetic neuropathy, unspecified, E78.9 - Disorder of lipoprotein metabolism, unspecified, I42.6 - Alcoholic cardiomyopathy, K70.31 - Alcoholic cirrhosis of liver with ascites, K70.9 - Alcoholic liver disease, unspecified
[2024-07-11 09:21] VITALS: BP 120/76; PULSE 74; O2SAT 97; BMI 21.3
== END 2024-07-11 09:44 | disposition home or self-care (01) ==
PROVIDERS: PCP Internal Medicine; Visit Provider Internal Medicine
DX: E11.40 Type 2 diabetes mellitus with diabetic neuropathy, unspecified (principal); K70.9 Alcoholic liver disease, unspecified; I42.6 Alcoholic cardiomyopathy; K70.31 Alcoholic cirrhosis of liver with ascites; E78.9 Disorder of lipoprotein metabolism, unspecified

== ENCOUNTER 2024-09-13 08:34 | Outpatient (AMB) | payer MEDICARE, OTHER, SELFPAY ==
--- NOTE | 2024-09-13 08:40 | A.OFFVIS_ITS ---
Vital Signs 09/13/24 08:47 Height 5 ft 11 in Weight 165 lb BMI 23.0 BP 156/70 H Blood Pressure Location Lt brachial Pulse 69 Intake Visit Reasons: 3 month follow up Intake Note: Patient 6 month follow up for acid reflex and abd US/lab results. Patient cc: diarrhea on and off, and swallowing difficulty due to lack of teeth. Castings Drafter Required: No Accompanied by: Self / Same As Patient Allergies codeine Allergy (Unknown, Verified 09/13/24 08:39) Unknown Medication List - Last Reconciled 09/13/24 by Elisha Estevez MD aspirin 81 mg PO BEDTIME atorvastatin 20 mg PO DAILY 90 days blood-glucose meter As directed insulin aspart U-100 (Novolog FlexPen U-100 Insulin aspart) 6 - 9 sliding scale doses subcut BID insulin detemir U-100 (Levemir FlexPen) 17 units subcut DAILY lancets As directed [id number] 24,000-76,000 -120,000 unit (Creon) 1 cap PO TID 90 days multivitamin 1 tab PO DAILY pen needle, diabetic B.i.d. pregabalin 150 mg PO TID 30 days spironolactone 25 mg PO DAILY thiamine mononitrate (vit B1) 100 mg PO DAILY 90 days HPI HPI 3 month follow up: Details: GI clinic visit for this 68 YM? with CHF, CAD, IDDM, htn, kidney stones, CKD, seen for FU of liver disease, chronic calcific pancreatitis and colon cancer screening. Followed by Dr Centeno at [facility].? Saw another GI physician in 2019 at [facility] who has retired also. Renal:? Dr Chan Pt was hospitalized at [facility] 05/29/21 to 06/10/21 with cirrhosis, ascites, SBP,? sepsis, anemia, nontraumatic psoas hematoma, Malnutrition, anasarca, pancreatic insufficiency, thrombocytopenia, coagulopathy, alcohol use disorder, coronary artery disease and confusion associated with infection.? Hospital course was complicated by type 2 hepatorenal disease which was treated with midodrine, octreotide, albumin infusions Creatinine improved to 1.4 and octreotide was discontinued. Discharge summary from hospitalization was reviewed in scanned into the patient's medical record. TODAY'S VISIT: Patient 6 month follow up for acid reflex and abd US/lab results. Patient cc: diarrhea on and off, and swallowing difficulty due to lack of teeth. Abd US results reviewed Has diarrhea at night time and his to get up to use the rest room - atleast 2-3 times a day. He was on antibiotics after foot surgery and diarrhea was worse. Diarrhea cleared up within a week of stopping antibiotics. Seen by Endocrinology at [facility] and they may change his insulin on his FU visit. Had surgery in January on his right foot and Sep on the left foot. Treated with antibiotics prior to surgery on the left foot. Antibiotics were stopped 2 weeks ago and diarrhea is getting better. Has an accidents when he wakes up in the am. Bms are associated with urgency - 3 - 5 loose non-bloody BMs a day Pt states he had lab and stool tests at [facility] Swallowing is good. Noted a slight sore throat for a few days after EGD Denies any change in dysphagia Biopsy results reviewed PAST VISIT: Patient cc: swallowing problems, and between diarrhea and constipation. Patient is been seen in the [place] wound center due a infected blister on his legs. Accompanied by his GF Has wounds in the feet. Had a vitrectomy recently Appetite is good and he has been gaining weight Has diarrhea alternating with constipation Intermittent dysphagia associated with intake of solids - with every meal for the past 6 months, Denies heartburn Has a good appetite and wt gain of 40 lbs over the past year. Continues to have a abd cramps with a lot of gas and more bouts of diarrhea. Unable to go for a few days and then has diarrhea. Takes peptobismol when he has diarrhea. Can be on the toilet for 1/2 an hour. Has oatmeal for breakfast, fruit or muffin for lunch. Had EUS at [facility] - report was requested Colonoscopy was attempted and was unsuccessful due to poor prep. Pt reports bouts of constipation and diarrhea - mostly diarrhea. Denies black stool or rectal bleeding Denies abdominal pain and appetite is better Pregabilin is helping with the appetite. Notes mild lower extremity edema Takes Novolin 17 units in the am and uses regular insulin on a sliding scale the rest of the day. No ETOH in 15 to 16 months Pt was diagnosed with alcoholic cirrhosis a few yrs ago. DM diagnosed 5-6 yrs ago. Complains of worsening upper abdominal pain x 1 month. Pain is constant, 8/10 and radiates to the back. Denies change in pain with eating. Denies nausea, vomiting, dairrhea or constipation.. Takes Lactulose two times a day and has 2 -3 soft BMs daily. Stools are very light Appetite has been good and he is trying to eat three times a day or takes a protein drink. Started loosing wt for the past 6 months Baseline wt is 145 lbs. Weighed 126 lbs on discharge from Rehab and now weighs 110 lbs. Feels he is getting enough calories. Patient denies symptoms of heartburn, dysphagia.? Denies black stools or rectal bleeding. Patient denies loud snoring or sleep apnea - has difficulty sleeping due to neuropathy Denies problems with anesthesia in the past. Denies being on chronic anticoagulation. Quit drinking 3 months ago Denies tobacco use Patient denies known family history of colon polyps, colon cancer or other GI malignancies. 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 Diverticulosis was detected.? Repeat colonoscopy was advised in 5 years.? IMAGING STUDIES:??09/2023 ABD US SHOWED: 1. The pancreas appears atrophic with calcifications throughout the pancreas. The pancreatic duct measures 1.2 cm in diameter. 2. The proximal common duct is normal in size. The distal common duct is mildly dilated measuring 0.8 cm in diameter. BARIUM SWALLOW SHOWED: 1. 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 Consistent pooling in the piriform sinuses and vallecula. 2. Small amount of glottic/subglottic aspiration noted. 3. Mildly disorganized esophageal peristalsis. 4. Incomplete evaluation of the stomach, as detailed. Would definitely consider correlating with EGD. 06/01/[address] SCAN PERFORMED AT [facility]: Diffuse pancreatic calcifications with pancreatic atrophy.? Pancreatic duct dilated to 6 mm - likely due to pancreatic atrophy For least catheter in the urinary bladder Bilateral pleural effusion, ascites and diffuse anasarca.? L3-L4 compression fracture - age undetermined ENDOSCOPIC STUDIES: 11/25/23 EGD SHOWED: Esophagus: GE junction at 40 cms. Mildly tortuous esophagus with decreased contractions without stricture or ring. Esophageal balloon dilation of distal esophagus was performed with a 20 mm (60F) x 60 seconds Esophageal balloon dilation of proximal esophagus was performed with an 18 mm (54 F) x 60 seconds Stomach: Mosaic appearance of the stomach consistent with mild portal gastropathy. Moderate gastric antral erythema - biopsies were obtained from the antrum. Grade 2 flap valve and no gastric varices noted on retroflexed examination of the cardia. Impression and Post Procedure Diagnosis: Endoscopy Findings: ESOPHAGUS: Mildly tortuous esophagus. Esophageal balloon dilation was performed. STOMACH: Mosaic appearance of the stomach consistent with mild portal gastropathy. Moderate diffuse gastric erythema - biopsies were obtained from the antrum. Plan: Pt has a FU appointment on 12/01/[address] Estevez. BIOPSIES SHOWED: Stomach, antrum, biopsy: Antral-type mucosa with mild chronic inactive inflammation and focal intestinal metaplasia; negative for dysplasia; no Helicobacter organisms seen 03/25/23 COLONOSCOPY SHOWED: Two medium sized polyps removed Moderate diverticulosis seen in the entire colon Plan: Repeat Colonoscopy interval based on path results - in 2 years if polyps are adenomatous and to check polypectomy site at the hepatic flexure. 03/02/22 Pt had an EUS at [facility] by Dr Mc which showed: Distended gallbladder, and normal liver panel time a with normal-sized intrahepatic ducts and mid CBD. Dilated pancreatic duct in head, smoothly transitioning to midbody. No stones noted within the pancreatic duct. Atrophic pancreatic duct with calcifications within the side branches, no discrete masses found in the pancreatic parenchyma. Multiple tortuous blood vessels noted in the lesser sac region close to the splenic vein. Patient was advised to take frequent small meals and continue Creon and refrain from EtOH use. Of note colonoscopy was attempted after EUS in terminated due to poor prep. PAST GI HISTORY BY REVIEW OF MEDICAL RECORDS: 12/14/20 pt was seen by Dr. Silvestre for anemia: 64 years old male with PMH of CAD post CABG, diabetes on insulin, HLD, neuropathy, alcohol abuse who I am seeing for assessment for anemia,He actually presents with worsening left big toe ulcer with increased warmth, swelling, erythema and tenderness around the area with drainage. He does have peripheral neuropathy at baseline as well. part of work up revealed anemia He denies hematuria, no melena, or rectal bleeding. He has no GERd, dysphagia, weight loss or fevers. he said he had EGD and colonoscopy mayb 5-6 yrs ago, results unknown Imaging suggestive of osteomyelitis. 1/ Macrocytic anemia, maybe due to diet, or chronic anemia from osteomyelitis or bone marrow disease, no overt GI blood loss PLAN: 1/ priority right now is treatment of the osteomyelitis, would defer EGD and colonoscopy to either early outpatient or after few days of ABX therapy. Discussed with primary team. Meantime PPI e.g pantoprazole 40 mg OD and fluid/vol resuscitate, if clinical status changes and he has overt GI bleeding then can change plan accordingly [facility] Medical History (Updated 09/13/24 @ 08:58 by Elisha Estevez MD) Ascites Chronic kidney disease GERD (gastroesophageal reflux disease) Macrocytic anemia Chronic diabetic ulcer of right foot determined by examination Anemia Osteomyelitis Hearing difficulty Neuropathy Cataracts, bilateral Bunion Heart attack CAD (coronary artery disease) High cholesterol Diabetes Hypertension Surgical History History of esophagogastroduodenoscopy (EGD) H/O colonoscopy Hx of heart artery stent Hx of cystoscopy Hx of endoscopy History of bunionectomy of right great toe H/O rotator cuff surgery H/O heart bypass surgery Family History Sister HTN (hypertension) Sister HTN (hypertension) Father Heart disease Heart attack Mother Kidney failure Social History Household Members: Significant Other [facility]: [facility] Are you a primary resident care associate to a significant other at home: No Do you presently have visiting nurse or other home services: No Alcohol intake: current Alcohol intake frequency: former alcohol drinker Alcohol type: beer Patient Tobacco Use Status: Former Tobacco user Tobacco use type: Cigarette Cigarette Packs Per Day: 1 Cigarettes Per Day: 20 Years Smoked: 15 e-Cigarette/Vaping Use: Never Used Substance Use Type: Marijuana service: No Current occupational status: unemployed Cognitive needs: No Hearing needs: Yes Vision needs: No Review of Systems Const All systems reviewed & are unremarkable except as noted in HPI and below Physical Exam Vital Signs: Last Vital Signs Pulse 69 09/13/24 08:47 BP 156/70 H 09/13/24 08:47 BMI result Body Mass Index 23.0 Const General: healthy appearing and no acute distress Nutritional Appearance: average body habitus Orientation/consciousness: patient oriented x3 Limitations: no limitations HEENT Head: Yes normal to inspection Ears: hearing grossly normal bilaterally Eyes Sclerae: sclerae normal Pupils: Equal, round and reactive pupils present Neck Neck: Yes normal visual inspection Chest Chest palpation & inspection: normal inspection of the chest Resp Effort & Inspection: normal respiratory effort Auscultation: clear to auscultation bilaterally Cardio Palpation: normal PMI Rate: regular rate Rhythm: regular rhythm Heart sounds: S1 normal heart sound present, S2 normal heart sound present and no murmurs GI Palpation (GI): Soft to palpation, nontender and No hepatosplenomegaly present Auscultation: normal bowel sounds Rectal Exam - Male: Yes deferred Skin General skin exam: no rashes or lesions noted Neuro General: patient oriented x3, gait normal and moves all extremities Cranial nerves: Yes Equal, round and reactive pupils present Psych Appearance: grossly normal Mental Status: mental status grossly normal Assessment & Plan Assessment & Plan (1) Acute on chronic anemia: Code(s): D64.9 - Anemia, unspecified Category: Medical (2) Alcoholic cirrhosis of liver with ascites: Code(s): K70.31 - Alcoholic cirrhosis of liver with ascites Category: Medical (3) Abnormal MRI of abdomen: Code(s): R93.5 - Abnormal findings on diagnostic imaging of other abdominal regions, including retroperitoneum Category: Medical (4) Cricopharyngeal achalasia: Code(s): K22.0 - Achalasia of cardia Category: Medical (5) Diarrhea: Code(s): R19.7 - Diarrhea, unspecified Category: Medical Plan 68 YM with poorly controlled DM complicated by neuropathy and nephropathy, cardiomyopathy, ESLD, chronic calcific pancreatitis followed in GI for weight loss despite good appetite and adequate p.o. intake. Patient has decompensated cirrhosis complicated by ascites and hepatic encephalopathy - had mild ascites on physical exam. Patient has a history of acute and chronic pancreatitis requiring hospitalization in past. Pt's weight loss is likely a combination of uncontrolled DM and malabsorption due to chronic calcific pancreatitis. Pt is also at increased risk for Pancreatic Cancer (due to chronic pancreatitis) and HCC. I will check lab and stool tests for malabsorption.? Patient was advised to start pancreatic enzymes with meals and monitor his weight. He needs better control of his diabetes - he would benefit from referral to Endocrinology. 03/02/22 Pt had an EUS at [facility] by Dr Mc which showed: Distended gallbladder, and normal liver panel time a with normal-sized intrahepatic ducts and mid CBD. Dilated pancreatic duct in head, smoothly transitioning to normal size in midbody. No stones noted within the pancreatic duct. Atrophic pancreatic duct with calcifications within the side branches, no discrete masses found in the pancreatic parenchyma. Multiple tortuous blood vessels noted in the lesser sac region close to the splenic vein. Patient was advised to take frequent small meals and continue Creon and refrain from EtOH use. Of note colonoscopy was attempted after EUS and terminated due to poor prep. 03/25/2023 colonoscopy was performed in findings as noted above 05/26/23 Has diarrhea alternating with constipation Intermittent dysphagia associated with intake of solids - with every meal for the past 6 months, Has a good appetite and wt gain of 40 lbs over the past year. Patient advised to schedule a barium swallow for evaluation of dysphagia. He is due for an abdominal ultrasound in spring for follow-up of cirrhosis MELD score is 12 11/24/23 Pt complains of dysphagia to solids for the past 6 months Barium swallow showed moderate to severe cricopharyngeal achalasia and incomplete evaluation of the stomach Pt advised further evaluation with EGD with esophageal balloon dilation - scheduled on 11/25/23. 12/01/23 Noted a slight sore throat for a few days after EGD Denies any change in dysphagia Biopsy results reviewed - gastric metaplasia and advised repeat EGD in 3 years. Pt was offered referreal to ENT for cricopharyngeal myotomy versus Botox injection. Patient would prefer to monitor his symptoms for now He was advised to contact my office if he noted worsening dysphagia symptoms 09/13/24 Advised to increase Creon to 2 pills with every meal to see if diarrhea improves FU in 6 months Medications: Changed From [id number]-bfwrfvqc-[id number] 24,000-76,000 -120,000 unit (Creon) 1 cap PO TID 90 days 300 caps 1RF K86.0 - Alcohol-induced chronic pancreatitis To [id number]-prmhlyum-dhjnthb 24,000-76,000 -120,000 unit (Creon) 2 caps PO TID 90 days 540 caps 1RF K86.0 - Alcohol-induced chronic pancreatitis Coding Level of Care Code Est Pt Level 4 (58020) Diagnoses Acute on chronic anemia D64.9 Alcoholic cirrhosis of liver with ascites K70.31 Abnormal MRI of abdomen R93.5 Cricopharyngeal achalasia K22.0 Diarrhea R19.7 Time Spent (min) 25
[2024-09-13 08:47] VITALS: BP 156/70; PULSE 69; BMI 23.0
--- OUTSIDE RECORDS SUMMARY | 2024-09-13 08:59 | XMS_ITS ---
Author Organization [facility] Address Unknown Problems Problem Status Start Date End Date ENCEPHALOPATHY, UNSPECIFIED (Primary) (G93.40 - ICD-10 -CM) ACTIVE 06/10/2021 CHRONIC HEPATIC FAILURE WITHOUT COMA (K72.10 - ICD-10- CM) ACTIVE 06/10/2021 ALCOHOLIC CIRRHOSIS OF LIVER WITH ASCITES (K70.31 - ICD-10-CM) ACTIVE 06/10/2021 SEPSIS, UNSPECIFIED ORGANISM (A41.9 - ICD-10-CM) ACTIV E 06/10/2021 SPONTANEOUS BACTERIAL PERITONITIS (K65.2 - ICD-10-CM) ACTIVE 06/10/2021 HEPATIC FAILURE, UNSPECIFIED WITHOUT COMA (K72.90 - ICD-10-CM) ACTIVE 06/10/2021 UNSPECIFIED CIRRHOSIS OF LIVER (K74.60 - ICD-10-CM) AC TIVE 06/10/2021 OTHER CHRONIC PANCREATITIS (K86.1 - ICD-10-CM) ACTIVE 06/11/2021 SEVERE SEPSIS WITH SEPTIC SHOCK (R65.21 - ICD-10-CM) A CTIVE 06/10/2021 UNSPECIFIED PROTEIN-CALORIE MALNUTRITION (E46 - ICD-10 -CM) ACTIVE 06/10/2021 NON-PRESSURE CHRONIC ULCER O F OTHER PART OF RIGHT FOOT WITH UNSPECIFIED SEVERITY (L97.519 - ICD-10-CM) ACTIVE 06/10/2021 TYPE 2 DIABETES MELLITUS WIT H DIABETIC CHRONIC KIDNEY DISEASE (E11.22 - ICD-10-CM) ACTIVE 06/10/2021 ANEMIA, UNSPECIFIED (D64.9 - ICD-10-CM) ACTIVE 1 08/10/2020 GENERALIZED EDEMA (R60.1 - ICD-10-CM) ACTIVE ATHEROSCLEROTIC HEART DISEAS E OF [place] CORONARY ARTERY WITHOUT ANGINA PECTORIS (I25.10 - ICD-10-CM) ACTIVE 06/10/2021 HYPOTENSION, UNSPECIFIED (I95.9 - ICD-10-CM) ACTIVE 06/10/2021 GASTRO-ESOPHAGEAL REFLUX DIS EASE WITHOUT ESOPHAGITIS (K21.9 - ICD-10-CM) ACTIVE 06/10/2021 MUSCLE WEAKNESS (GENERALIZED) (M62.81 - ICD-10-CM) ACT JOSE 06/10/2021 UNSTEADINESS ON FEET (R26.81 - ICD-10-CM) ACTIVE 06/10/2021 OTHER SYMPTOMS AND SIGNS INV OLVING COGNITIVE FUNCTIONS AND AWARENESS (R41.89 - ICD-10-CM) ACTIVE 06/10/2021 DIFFICULTY IN WALKING, NOT E LSEWHERE CLASSIFIED (R26.2 - ICD-10-CM) ACTIVE 06/10/2021 BENIGN PROSTATIC HYPERPLASIA WITH LOWER URINARY TRACT SYMPTOMS (N40.1 - ICD-10-CM) ACTIVE 06/10/2021 ACUTE KIDNEY FAILURE, UNSPECIFIED (N17.9 - ICD-10-CM) ACTIVE 06/10/2021 THROMBOCYTOPENIA, UNSPECIFIED (D69.6 - ICD-10-CM) ACTI VE 06/10/2021 Encounters Encounter Performer Performer Role Encounter Diagnoses Location Date Discharge - Discharged to home or self care - Home (Agency Unknown) - Private home/apt. with home health services [facility] 06/10/2021 04:58 pm EST - 07/09/2021 12:54 pm EST Immunizations Vaccine Date SARS-COV-2 (COVID-19) 04/18/2021 12:00 a m EDT SARS-COV-2 (COVID-19) 10/09/2020 12:00 a m EDT SARS-COV-2 (COVID-19) 09/18/2020 12:00 a m EST Social History
--- OUTSIDE RECORDS SUMMARY | 2024-09-13 08:59 | XMS_ITS | Encounter Summary ---
Author Organization [facility] Address [address] [place] [address] Care Team Providers Care Ship Erector Name Role Phone Rufino Rajput MD Primary Care Provider [phone] Francisco J Galeana MD Unavailable Orion Rodriguez MD Unavailable [phone] Kelby Celaya MD Unavailable [phone] System, Provider Not In Unavailable Unavaila ble Reason for Visit * Reason Comments Follow-up NEEDS XRS Encounter Details Date Type Department Care Team (Late st Contact Info) Description 09/11/2024 9:45 AM EST Office Visit [facility] [place] [address] Monique Gay APRN [address] [address] Hallux valgus (acquired), left foot (Primary Dx) Social History Tobacco Use Types Packs/Day Years Used Date Smoking Tobacco: Former Cigarettes 0.5 20 1 980 - 2000 Smokeless Tobacco: Never Alcohol Use Standard Drinks/Week Comments Not Currently 0 (1 standard drink = 0.6 oz pur e alcohol) sober 05/2021 AUDIT-C Answer Date Recorded Q1: How often do you have a drink containing alcohol? Never 01/10/2024 Q2: How many drinks containi ng alcohol do you have on a typical day when you are drinking? Patient does not drink Q3: How often do you have si x or more drinks on one occasion? Never 01/10/2024 Sex and Gender Information Value Date Recorded Sex Assigned at Male 12/21/2023 2:40 PM EDT Gender Identity Male 12/21/2023 2:40 PM EDT Sexual Orientation Heterosexual (straight) 02/01 2:07 PM EDT documented as of this encounter Progress Notes * Monique Gay, STEPHON - 09/11/2024 9:45 AM EST Images from the original note were not included. [address] [facility] [address] [id number] Encounter Date: 09/11/2024 1. Hallux valgus (acquired), left foot XR Foot weight bearing 3 views-Left XR Foot weight bearing 3 views-Left Assessment & Plan Assessment: Approximately 5 months postop status post left first MTP fusion, left second hammertoe correction. Plan: The patient may follow-up on an as-needed basis at this time. He will continue wearing the silicone toe spacer as needed and will plan on getting new diabetic shoes for the wintertime to help prevent more blisters occurring. History of Present Illness: Quentin Lara is a 68 y.o. male who presents today for postop follow-up his left foot. Chief Complaint Patient presents with Left Foot - Follow-up NEEDS XRS Quentin reports that overall he is doing well and is happy with the results of his surgery for his bunion and hammertoe correction. He reports having no pain, just his baseline neuropathy. He states that the surgery is now in his rearview mirror , and he is ready to move on with other things. He does report to me today that he has a healing blister on the back of his left heel that he thinks arefrom his shoes. He explains to me that he does not have good diabetic shoes for the winter and is looking to get some in the near future. He reports that he uses the silicone toe spacer a fair amountwhich is helpful to maintain proper hallux alignment. He has agreed to the above-mentioned plan. Denies radiation of pain, tenderness, numbness, or tingling. Physical Exam Well appearing male in no apparent distress, alert and oriented x 3, non antalgic gait. Skin is intact without erythema, edema, or ecchymosis. There is a healing blister on the posterior aspect of the left heel. No tenderness to palpation about the foot or ankle, calf is soft and non tender. Normalalignment appreciated. Full ROM of the ankle and all digits. Distal sensation intact with brisk capillary refill noted. Dorsalis pedis pulse 2+ bilaterally. Procedure None Imaging Imaging Impression: 3 weightbearing views of the left foot reviewed by myself today revealing healing of bone and callus formation at the operative site. Hardware of the left foot remains in place and is well aligned with no evidence of movement, breakage, or backing out. No acute or stress fx, degenerative change, or malalignment noted. Review of Systems See HPI Monique Gay APRN documented in this encounter Plan of Treatment Not on file documented as of this encounter Procedures Procedure Name Priority Date/Time Associated Diagnosis Comments XR FOOT WEIGHT BEARING 3 VIEWS-LEFT Routine 09/11/2024 10:05 AM EST Hallux valgus (acquired), left foot documented in this encounter Results * XR Foot weight bearing 3 views-Left (09/11/2024 10:05 AM EST) Narrative OA - 09/11/2024 10:05 AM EST This exam was performed in office at [facility] and images reviewed by orthopedic provider. ??Any findings are documented within ambulatory encounter note on date of service. Monique Gay APRN IMG DIAGNOSTIC IM AGING ORDERABLES [facility] documented in this encounter Visit Diagnoses Diagnosis Hallux valgus (acquired), left foot- Primary documented in this encounter Care Teams Ship Erector Relationship Specialty Start Date End Date Rufino Rajput MD [address] [place] [address] PCP - General Internal Medicine 12/27/23 Francisco J Galeana MD [address] [place] [address] [address] [place] [address] Cardiology-Scan 01/06/24 Orion Rodriguez MD [address] [facility] [address] [place] [address] Surgery, Orthopedic 01/10/24 Kelby Celaya MD [address] [place] [address] Physician Nephrology 01/10/24 System, Provider Not In 01/10/24 documented as of this encounter
--- OUTSIDE RECORDS SUMMARY | 2024-09-13 08:59 | XMS_ITS | Encounter Summary ---
Author Organization [facility] Address [address] [place] [address] Phone Care Team Providers Care Furniture Mover Driver Name Role Phone Rufino Rajput MD Primary Care Provider [phone] Reason for Visit * Reason Comments Med Refill Encounter Details Date Type Department Care Team (Late Contact Info) Description 06/06/2021 Refill [facility] [address] [place] [address] Olayinka Saldana MD Social History Tobacco Use Types Packs/Day Years Used Date Smoking Tobacco: Former Cigarettes Q uit: 07/25/2004 Smokeless Tobacco: Former Alcohol Use Standard Drinks/Week Comments Yes 0 (1 standard drink = 0.6 oz pur e alcohol) Sex and Gender Information Value Date Recorded Sex Assigned at Not on file Legal Sex Male 4:44 PM EST Gender Identity Not on file Sexual Orientation Not on file COVID-19 Exposure Response Date Recorded In the last month, have you been in contact with someone who was confirmed or suspected to have Coronavirus / COVID-19? No / Unsure 05/15/2021 10:27 AM EDT documented as of this encounter Plan of Treatment Upcoming Encounters Date Type Department Care Team (Late Contact Info) Description 01/21/2025 9:00 AM EDT Office Visit [facility] [address] [facility] [address] [place] [address] Karen Plascenica ARNP [address] [facility] [address] [place] [address] documented as of this encounter Visit Diagnoses Not on filedocumented in this encounter Care Teams Furniture Mover Driver Relationship Specialty Start Date End Date Rufino Rajput MD [address] [place] [id number] PCP - General Internal Medicine 04/06/21 documented as of this encounter
--- OUTSIDE RECORDS SUMMARY | 2024-09-13 08:59 | XMS_ITS ---
[facility] Address [address] [facility] [place] [address] Care Team Providers Care Asthma Educator Name Role Phone Regulo CONKLIN, [facility] Primary [facility] Provider Ni Almanza Unavailable [phone] Allergies Allergen (clinical drug ingredient) Drug/Non Drug Allergy documented on EMR Reaction Allergy Type Onset Date Status codeine Codeine Sulfate rapid pulse, shortness of breath, hypertation, sweats Drug Allergy Active REASON FOR VISIT Transfer to Different Provider, Toe Irritation, At Risk Footcare Medications Medication SIG (Take, Route, Frequency, Duration) Notes Start Date End Date Status Extra Depth Diabetic Shoes with 3 Pair Custom heat-molded multi-density innersoles for 1 year Dx: 02/25/2021 Not-Taking FreeStyle Lancets for 90 No t-Taking FreeStyle Lite Test In Vitro for 90 Not-Taking Metoprolol Succinate ER 50 MG 1 tablet Orally Once a day Not-Taking Insulin Cartridge 3ML Not-Taking Lactulose Not-Taking Basaglar KwikPen Not -Taking Furosemide 40 MG 1 tablet Orally Once a day for 30 day(s) Not-Taking Tamsulosin HCl 0.4 MG 1 capsule Orally Once a day for 30 day(s) Not-Taking Omeprazole 40 MG 1 capsule 30 minutes before morning meal Orally Once a day for 30 day(s) Not-Taking Zolpidem Tartrate No t-Taking Enulose Not-Taking Vitamin C Not-Taking Vitamin B-1 100 MG 1 tablet Orally Once a day for 30 day(s) Not-Taking Zenpep Not-Taking Aspirin 81 MG 1 tablet Orally Once a day Active Spironolactone 25 MG 1 tablet Orally for 30 day(s) Active Multivitamins Orally Active Atorvastatin Calcium 20 MG 1 tablet Orally Once a day Active Extra Depth Diabetic Shoes with 3 Pair Custom heat-molded multi-density innersoles for 1 year Dx: Active Levemir Active NovoLOG sliding scale Active Creon Active Pregabalin 100 MG 1 capsule Orally Three times a day Active Calcitriol 0.25 MCG 1 capsule Orally Three times a Week Active Physical Therapy . . . 2-3x/week for 3-4 weeks Not-Taking Physical Therapy . . . 2-3x/week for 3-4 weeks 03/01/2014 Not-Taking Doxycycline Hyclate Active Sodium Bicarbonate 650 MG as directed Orally Active Amoxicillin Active Nitrostat 0.4 MG Sublingual No t-Taking Extra Depth Orthopedic Shoes (1 Pair) with Customized Heat Molded Multidensity Innersoles (3 Pair) as directed Dx: NIDDM/Polyneuropathy (E11.42), Hammertoe Foot Deformity (M20.41,M20.42), Preulcerative Skin Lesion(s) (L85.1 07/12/2024 Active Lyrica 50 MG 1 capsule Orally Three times a day Not-Taking metFORMIN HCl 1000 MG Oral for 30 Not-Taking Lisinopril 20 MG Oral for 90 N ot-Taking glyBURIDE 5 MG Oral for 30 Not -Taking Ferrous Sulfate 325 (65 Fe) MG 1 tablet Orally Once a day Not-Taking glipiZIDE Not-Taking Gabapentin 600 MG Oral for 90 Not-Taking Ketostix In Vitro for 50 Not- Taking Folic Acid 1 MG Oral for 90 No t-Taking Antibiotic Not-Takin g Social History Tobacco Use: Social History Observation [...] Status W/U Status Risk Notes Problem Acquired hammer toe of right foot (3515794189312 105) Other hammer toe(s) (acquired), right foot (M20.41) Active confirmed Problem Acquired hammer toe of left foot (2996515289929 103) Other hammer toe(s) (acquired), left foot (M20.42) Active confirmed Vital Signs Height 5ft 11in in 07/12/2024 Weight 155 lbs 07/12/2024 BMI 21.62 kg/m2 07/12/2024 Blood pressure systolic 120 mm Hg 07/12/20 24 Blood pressure diastolic 80 mm Hg 024 Procedures Procedure Date Ordered Date Performed Result Body Sit e 85888-KETNWPO NAIL, 6 OR MORE 07/12/2024 N/A 21802-QHVA SKIN LESIONS, OVER 4 07/12/2024 N/A Encounters Encounter Location Date Provider Diagnosis [facility] [address] [address] 07/12/2024 Ni Vasu Other hammer toe(s) (acquired), right foot M20.41 ; Other hammer toe(s) (acquired), left foot M20.42 ; Type 2 diabetes mellitus with diabetic polyneuropathy E11.42 and Tinea unguium B35.1 Assessments Encounter Date Diagnosis (ICD Code) Assessment Notes Treatment Notes Treatment Clinical Notes Section Notes 07/12/2024 Other hammer toe(s) (acquired), right foot (ICD-10 - M20.41) Patient Educated with: DIABETIC FOOT CARE INSTRUCTIONS. pdf (DIABETIC FOOT CARE INSTRUCTIONS. pdf) 07/12/2024 Other hammer toe(s) (acquired), left foot (ICD-10 - M20.42) 07/12/2024 Type 2 diabetes mellitus with diabetic polyneuropathy (ICD-10 - E11.42) 07/12/2024 Tinea unguium (ICD-10 - B35.1) Plan Of Treatment Medication Medication Name Sig Start Date Stop Date Notes Extra Depth Orthopedic Shoes (1 Pair) with Customized Heat Molded Multidensity Innersoles (3 Pair) as directed Dx: NIDDM/Polyneuropathy (E11.42), Hammertoe Foot Deformity (M20.41,M20.42), Preulcerative Skin Lesion(s) (L85.1 07/12/2024 Treatment Notes Assessment Notes Other hammer toe(s) (acquired), right fo ot Patient Educated with: DIABETIC FOOT CARE INSTRUCTIONS.pdf (DIABETIC FOOT CARE INSTRUCTIONS.pdf) Pending Test Test Name Order Date 41412-YYOWIRO NAIL, 6 OR MORE 07/12/2024 66403-QPJW SKIN LESIONS, OVER 4 07/12/20 24 Next Appt Details Follow Up: prn, Reason: Provider Name:Ni duncan, 11/02/2024 01:00:00 PM, [address], [address], [place], [address], Procedure Notes * Category Sub-Category Detail Notes Debride Nail 6-10 Nail debridement Due to the cl inical pathology outlined in the exam findings, performance of this nail treatment is medically necessary as its management by an unskilled/untrained nonprofessional would put this patients foot and overall health at risk. Therefore, debridement to affected nail(s), as described in exam ( TA, T1, T2, T3, T4, T5, T6, T7, T8, T9, ), was performed exclusively by the physician of record to reduce/remove overall nail length, girth, thickness, subungual debris, and necrotic tissue, by manual and/or electrical means through the use of a nail nipper and/or dremel-type grinder set up operator gear tool, to a more viable healthy nail plate or bed tissue 6-10 nails in total. Silver nitrate was used for any petechial bleeding as necessary. Definitive antifungal treatment options, both pharmaceutical and surgical, have been reviewed and discussed with the patient. The patient solely prefers the use of intermittent/as needed professional debridement services for their nail condition and understands the need for additional periodic treatments to maintain effectiveness in symptomatic relief - 75899 Keratoma Treatment Parring or Cutting o f Benign Hyperkeratotic Lesion(s) (-57) More than 4 Lesions - Due to the at risk nature of the patients medical condition as documented in the exam findings, performance of this keratoderma treatment is medically necessary as its management by an unskilled/untrained nonprofessional would put this patients foot and overall health at risk. Therefore, the benign hyperkeratotic lesions, (6 ) in total, locations as stated and described in the exam ( sub 1st MPJ B/L, sub 5th MPJ B/L, plantar heels B/L), were pared, and/or cut utilizing a sterile 15 blade, tissue nippers, and/or power dremel instrumentation by the physician of record - [id number] Progress Notes * Quentin LARA SDOB:[birth year] (68 yo M)Acc No.[id number]:07/12/2024 Progress Note Patient:?Quentin LARA Provider:?Ni Leone DPM :1955???Age:68 Y???Sex:Male Santana e:07/12/2024 Address:[address] [place] [address] , [facility], [id number] Pcp:Rufino Rajput MD Subjective: * Chief Complaints: * ???Transfer to Different Pro viderToe IrritationAt Risk Footcare * HPI: ???At Risk footcare:?Pt States Last PCP Visit:?Date?07/11/2024 ???Toe pain:?Location:?B/L feet.?Duration:?several years.?Course:?worse.?Aggravated by:?shoes, any pressure.?Treatments:?change in shoes.? * ROS:?General/Constitutional:?Nausea?denies.?Vomiting?denies.?Hunger Thirst?denies.?Loss appetite?admits.?Chills?denies.?Fatigue?admits.?Fever?denies.?Night Sweats?denies.?Unexplained weight loss?denies.?Unexplained [...] intracranial angioplasty left rotator cuff tear repair 2013Heart stent 2000, 2011open heart /triple bypass 09/2014[facility] eye sx ataract Surgery 06/16Eye surgery - cataract slipped behind eyeball 07/16eye surgery, bitractomy 11/10/23left foot surgery, hardware removed from previous bunion surgery 02/03/24 * Hospitalization/Major Diagno stic Procedure:?[facility] - pneumonia 06/[id number] ER- Coundn't get up/stand -KidneyLiver failure-swelling/Infection ICU [...] ?Exercise: yes, walking. ?Marital status: single. ?Occupation: Retired-[employer]. * Medications:?TakingDoxycycli ne Hyclate Amoxicillin Sodium Bicarbonate 650 MG Tablet as directed Orally Calcitriol 0.25 MCG Capsule 1 capsule Orally Three times a Week Pregabalin 100 MG Capsule 1 capsule Orally Three times a day NovoLOG , Notes to Pharmacist: sliding scaleLevemir Creon Spironolactone 25 MG Tablet 1 tablet Orally Aspirin 81 MG Tablet 1 tablet Orally Once a day Atorvastatin Calcium 20 MG Tablet 1 tablet Orally Once a day Multivitamins Capsule Orally Extra Depth Diabetic Shoes with 3 Pair Custom heat-molded multi-density innersoles for 1 year Dx: Taking Doxycycline Hyclate Taking Amoxicillin Taking Sodium Bicarbonate 650 MG Tablet as directed Orally Taking Calcitriol 0.25 MCG Capsule 1 capsule Orally Three times a Week Taking Pregabalin 100 MG Capsule 1 capsule Orally Three times a day Taking NovoLOG , Notes to Pharmacist: sliding scaleTaking Levemir Taking Creon Taking Spironolactone 25 MG Tablet 1 tablet Orally Taking Aspirin 81 MG Tablet 1 tablet Orally Once a day Taking Atorvastatin Calcium 20 MG Tablet 1 tablet Orally Once a day Taking Multivitamins Capsule Orally Taking Extra Depth Diabetic Shoes with 3 Pair Custom heat-molded multi-density innersoles for 1 year Dx: Not-Taking/PRNVitamin C Zenpep Vitamin B-1 100 MG Tablet 1 tablet Orally Once a day Enulose Zolpidem Tartrate Lactulose Furosemide 40 MG Tablet 1 tablet Orally Once a day Basaglar KwikPen Omeprazole 40 MG Capsule Delayed Release 1 capsule 30 minutes before morning meal Orally Once a day Tamsulosin HCl 0.4 MG Capsule 1 capsule Orally Once a day FreeStyle Lite Test Strip In Vitro FreeStyle Lancets Miscellaneous Insulin Cartridge 3ML Metoprolol Succinate ER 50 MG Tablet Extended Release 24 Hour 1 tablet Orally Once a day Extra Depth Diabetic Shoes with 3 Pair Custom heat-molded multi-density innersoles for 1 year Dx: Antibiotic Folic Acid 1 MG Tablet Oral Ferrous Sulfate 325 (65 Fe) MG Tablet 1 tablet Orally Once a day glyBURIDE 5 MG Tablet Oral Gabapentin 600 MG Tablet Oral glipiZIDE Ketostix Strip In Vitro Lyrica 50 MG Capsule 1 capsule Orally Three times a day Lisinopril 20 MG Tablet Oral metFORMIN HCl 1000 MG Tablet Oral Nitrostat 0.4 MG Tablet Sublingual Sublingual Physical Therapy . . . . 2-3x/week Physical Therapy . . . . 2-3x/week Medication List reviewed and reconciled with the patientNot- Taking/PRN Vitamin C Not-Taking/PRN Zenpep Not-Taking/PRN Vitamin B-1 100 MG Tablet 1 tablet Orally Once a day Not-Taking/PRN Enulose Not-Taking/PRN Zolpidem Tartrate Not-Taking/PRN Lactulose Not-Taking/PRN Furosemide 40 MG Tablet 1 tablet Orally Once a day Not-Taking/PRN Basaglar KwikPen Not-Taking/PRN Omeprazole 40 MG Capsule Delayed Release 1 capsule 30 minutes before morning meal Orally Once a day Not-Taking/PRN Tamsulosin HCl 0.4 MG Capsule 1 capsule Orally Once a day Not-Taking/PRN FreeStyle Lite Test Strip In Vitro Not-Taking/PRN FreeStyle Lancets Miscellaneous Not-Taking/PRN Insulin Cartridge 3ML Not-Taking/PRN Metoprolol Succinate ER 50 MG Tablet Extended Release 24 Hour 1 tablet Orally Once a day Not-Taking/PRN Extra Depth Diabetic Shoes with 3 Pair Custom heat-molded multi-density innersoles for 1 year Dx: Not-Taking/PRN Antibiotic Not-Taking/PRN Folic Acid 1 MG Tablet Oral Not-Taking/PRN Ferrous Sulfate 325 (65 Fe) MG Tablet 1 tablet Orally Once a day Not-Taking/PRN glyBURIDE 5 MG Tablet Oral Not- Taking/PRN Gabapentin 600 MG Tablet Oral Not-Taking/PRN glipiZIDE Not-Taking/PRN Ketostix Strip In Vitro Not-Taking/PRN Lyrica 50 MG Capsule 1 capsule Orally Three times a day Not-Taking/PRN Lisinopril 20 MG Tablet Oral Not-Taking/PRN metFORMIN HCl 1000 MG Tablet Oral Not-Taking/PRN Nitrostat 0.4 MG Tablet Sublingual Sublingual Not-Taking/PRN Physical Therapy . . . . 2-3x/week Not-Taking/PRN Physical Therapy . . . . 2-3x/week Medication List reviewed and reconciled with the patient * Allergies:?Codeine Sulfate: rapid pulse, shortness of breath, hypertation, sweatsyes[Allergies Verified] Objective: * Vitals:?Ht:5ft 11in, Wt:155, BMI:21.62, Shoe size:10.5, BP:120/80mm Hg, BS:140, Ht-cm: 180.34 cm, Wt-k.31 kg. * ???Past Orders: ???Lab:HEMOGLOBIN A1C (GLYCO HEMOGLOBIN) (Order Date - 07/12/2024) (Collection Date & Time - 07/11/2024 09:55 AM) ? Value Reference Range ?TOTAL HEMOGLOBIN (HGBA1C) 6.7 * Examination: ???Ophthalmology Referral: ?DIABETES EYE EXAM?Orthopedic: ?MUSCLE STRENGTH:?5/5 all groups in a symmetrical fashion, B/L.?DIGITAL DEFORMITIES:?Digital contracture, PIPJ, 2-5 B/L, incompl-reducible to push-up test, no over, nor underlapping,?there is?evidence of shoe producing skin irritation.?FOOTWEAR:?worn, non-supportive, shoe gear properties exacerbate patient's foot/toe deformity.?General Examination: ?GENERAL APPEARANCE:?Reveals a pleasant, alert, well nourished, well- developed, well hydrated individual, who demonstrates proper attention to hygiene/body habitus, and is in no acute distress, Pt serves as own historian for office visit today.?ORIENTED:?person, place, and time.?FOOT EXAM:?Footwear Evaluation?Neurological: ?SENSORY:? Neurological exam demonstrates, reduced light touch sensation, reduced sharp/dull pin prick discrimination , B/L, 5.07 monofilament test performed at plantar aspects of 5 varied sites per foot shows sensation, reduced , B/L.?Nails: ?NAILS are:?Elongated, overgrown, dystrophic, lytic, greater than 3mm thick, discolored and friable with crumbly malodorous subungual debris, TA, T1, T2, T3, T4, T5, T6, T7, T8, T9.?Dermatologic: ?SKIN FINDINGS:?Skin exam reveals Keratotic lesion(s) located at sub 1st MPJ B/L, sub 5th MPJ B/L, plantar heels B/L.?Vascular: ?DP PULSES (B):?07/28, B/L.?PT PULSES (B):? 07/28, B/L.?CAPILLARY FILL TIME:?3 secs. per digit, B/L.?TROPHIC CONDITION-TEXTURE/ELASTICITY/TURGOR/HAIR GROWTH (B):?normal, B/L.?TEMPERTURE GRADIENT (C):?normal, warm to cool, proximal to distal, B/L.?TELANGECTASIA:?absent, B/L.? Assessment: * Assessment: 1.?Other hammer toe(s) (acqu ired), right foot - M20.41 (Primary)???Specify :Chronic problem, Worse (4),Rx Management (4)???2.?Other hammer toe(s) (acquired), left foot - M20.42???Specify :Chronic problem, Worse (4),Rx Management (4)???3.?Type 2 diabetes mellitus with diabetic polyneuropathy - E11.42???4.?Tinea unguium - B35.1??? Plan: * Treatment: 2.?Type 2 diabetes mellitus with diabetic polyneuropathy?Procedure: 39031-TFEKEPL NAIL, 6 OR MORE ?Procedure: [id number]-JPNG SKIN LESIONS, OVER 4 * Procedures:?Debride Nail 6-10:?Nail debridement?Due to the clinical pathology outlined in the exam findings, performance of this nail treatment is medically necessary as its management by an unskilled/untrained nonprofessional would put this patients foot and overall health at risk. Therefore, debridement to affected nail(s), as described in exam (? TA, T1, T2, T3, T4, T5, T6, T7, T8, T9, ), was performed exclusively by the physician of record to reduce/remove overall nail length, girth, thickness, subungual debris, and necrotic tissue, by manual and/or electrical means through the use of a nail nipper and/or dremel-type grinder set up operator gear tool, to a more viable healthy nail plate or bed tissue 6- 10 nails in total. Silver nitrate was used for any petechial bleeding as necessary. Definitive antifungal treatment options, both pharmaceutical and surgical, have been reviewed and discussed with the patient. The patient solely prefers the use of intermittent/as needed professional debridement services for their nail condition and understands the need for additional periodic treatments to maintain effectiveness in symptomatic relief - 98079.?Keratoma Treatment:?Parring or Cutting of Benign Hyperkeratotic Lesion(s)?(-57) More than 4 Lesions - Due to the at risk nature of the patients medical condition as documented in the exam findings, performance of this keratoderma treatment is medically necessary as its management by an unskilled/untrained nonprofessional would put this patients foot and overall health at risk. Therefore, the benign hyperkeratotic lesions, (6 ) in total, locations as stated and described in the exam ( sub 1st MPJ B/L, sub 5th MPJ B/L, plantar heels B/L), were pared, and/or cut utilizing a sterile 15 blade, tissue nippers, and/or power dremel instrumentation by the physician of record - 62439.? * Procedure Codes:?28363 DEBRI DE NAIL, 6 OR MORE, Modifiers: XS 02159 TRIM SKIN LESIONS, OVER 4, Modifiers: XS * Preventive Medicine:? ??Counseling:?Discussion:?-14: Office or other outpatient visit for the evaluation and management of an established patient, which required a medically appropriate history and/or examination and MODERATE level of DECISION MAKING for: 1 OR MORE CHRONIC PROBLEM(S) THATS WORSENING, 2 STABLE CHRONIC PROBLEMS, A NEWLY DIAGNOSED PROBLEM WITH UNCERTAIN PROGNOSIS, AN ACUTE COMPLICATED INJURY WITH MULTIPLE TREATMENT OPTIONS, OR AN ACUTE PROBLEM WITH ACCOMPANYING SYSTEMIC SYMPTOMS, THAT POSE(S) A MODERATE RISK OF MORBIDITY. THIS CONDITION MAY ALSO INCLUDE RX DRUG MANAGEMENT, OR A DECISON FOR MINOR SURGERY. The visit on the day of the encounter encompassed interpreting the data and educating the patient as to the nature of their condition, treatment options available according to their individual PMH, meds, allergies, and overall health/living conditions, as well as any potential risks or complications that may occur from a failure to adhere to, and participate in, the recommended course of therapy. The discussion included a complete verbal, and/or written explanation of the examination results, any x-rays taken, the proposed diagnosis, and outline of the treatment plan. A schedule for future care needs was also explained. The patient verbalized an understanding of the instructions at this time and agreed to be an active participant in their treatment. If the patient should think of any questions or concerns after the visit, I have encouraged the patient to call the office.?Digital Surgery:?Digital surgery was discussed with the patient, We elected to try conservative treatment at the present time, due to the patients medical history and increased asssociated post-operative risks.?Digital Treatment:?HT- I explained to the patient the possible etiologies of Hammertoes, including genetics/foot type/shoegear/activity level/exercise routine and the risks/benefits of all the different treatment options for their pain including: No treatment at all, Rest, Ice, New/supportive/wider/deeper Shoegear, Digital Padding/Strapping/Taping/Bracing/Gel protective sleeves, Foot/Ankle AFO Bracing, Stretching exercises, Deep Tissue Massage, Arch support/shoe inserts with splay metatarsal padding, and Custom orthoses. I insisted that any digital devices be removed daily and not worn overnight for safety. The patient is to carefully examine the toes daily for any skin irritation while using any splinting or padding device. The advantages and disadvantages of each option were discussed and the patients questions re: shoegear, padding, custom vs prefabricated inserts, activity level, and consistency in home treatment regimens for optimal success were answered to their verbally confirmed satisfaction.?Shoe Gear Counseling:?SHOE Rx - The patient was counseled in great detail on their muscoloskeletal foot and toe deformities which coincided with the dermatological presentations visualized on exam. We discussed how their deformities put the integrity of their feet at risk for potential pedal complications which makes the accomidative diabetic shoes and cutomizable inserts medically necessary. We discussed the different shoe and insert treatment types and options, as well as the important advantages for adhering to regularly wearing these accomidative devices daily. The patient was made aware of the fact that a failure to abide by these recommedations may be deleterious to their foot health as they are able to prevent many pedal complications such as skin irritation, skin ulceration, infection, and even loss of toe/foot/leg/or life. Time was also spent with the patient dispensing and discussing proper diabetic footcare techniques including daily skin moisturization, daily foot inspection for any interruption in skin integrity including open lesions, or sign of infection such as redness/malodor/drainage/swelling. Also discussed and recommended were procedures regarding daily shoe inspection for the presence of internal foreign bodies as well as any visualized irregular shoe or insert wear. Patient questions re: shoes, inserts, and self foot inspections were answered to their satisfaction as the patient verbally confirmed a full understanding of the above information. A Rx for Extra Depth Orthopedic Shoes with 3 pair of custom heat-molded inserts was dispensed.?Ulcer:?.? * Follow Up:?prn * Images: * Sign off status: Completed true * Provider:?Ni Leone DPM Date:?09/12/2023 Generated for Vika nicholson/Carrie/Dukeitting on:?09/13/2024 08:59 AM EST History and Physical Notes * HPI (History of Present Illness) Category Sub-Category Detail Notes Category Not es Toe pain Location: B/L feet Duration: several years Course: worse Aggravated by: shoes, any pressure Treatments: change in shoes At Risk footcare Pt States Last PCP Visit: Date: 4 Examination Category Sub-Category Detail Notes Category Not es Neurological SENSORY: Neurological exa m demonstrates, reduced light touch sensation, reduced sharp/dull pin prick discrimination , B/L, 5.07 monofilament test performed at plantar aspects of 5 varied sites per foot shows sensation, reduced , B/L Dermatologic SKIN FINDINGS: Skin exam reveal s Keratotic lesion(s) located at sub 1st MPJ B/L, sub 5th MPJ B/L, plantar heels B/L Orthopedic FOOTWEAR: worn, non-suppor tive, shoe gear properties exacerbate patient's foot/toe deformity DIGITAL DEFORMITIES: Digital contracture , PIPJ, 2-5 B/L, incompl-reducible to push-up test, no over, nor underlapping, there is evidence of shoe producing skin irritation MUSCLE STRENGTH: 5/5 all groups in a symmetrical fashion, B/L General Examination GENERAL APPEARANCE: Reveals a pleasant, alert, well nourished, well-developed, well hydrated individual, who demonstrates proper attention to hygiene/body habitus, and is in no acute distress, Pt serves as own historian for office visit today FOOT EXAM: Lower Extremity Neurological Exa m performed:: Yes ORIENTED: person, place, and t gerri Footwear Evaluation Footwear Evaluation performe d:: Yes Ophthalmology Referral DIABETES EYE EXAM Procedure Perform ed:: No Findings of Diabetic Eye Exam:: no retin opathy Vascular DP PULSES (B): 1/4, B/L PT PULSES (B): 1/4, B/L CAPILLARY FILL TIME: 3 secs. per digit, B/L TEMPERTURE GRADIENT (C): normal, warm to cool, proximal to distal, B/L TROPHIC CONDITION-TEXTURE/ELASTICITY/TURGOR/HAIR GROWTH (B): normal, B/L TELANGECTASIA: absent, B/L Nails NAILS are: Elongated, overg rown, dystrophic, lytic, greater than 3mm thick, discolored and friable with crumbly malodorous subungual debris, TA, T1, T2, T3, T4, T5, T6, T7, T8, T9
--- OUTSIDE RECORDS SUMMARY | 2024-09-13 08:59 | XMS_ITS | Encounter Summary ---
Author Organization Formerly [facility] Address [address] [place] [address] Care Team Providers Care Cork Floor Installer Name Role Phone Rufino Rajput MD Primary Care Provider [phone] Francisco J Galeana MD Unavailable Orion Rodriguez MD Unavailable [phone] Kelby Celaya MD Unavailable [phone] System, Provider Not In Unavailable Unavaila ble Encounter Details Date Type Department Care Team (Late st Contact Info) Description 09/11/2024 10:00 AM EST Ancillary Procedure [facility] [address] [place] [address] Arrived Social History Tobacco Use Types Packs/Day Years [...] PM EDT documented as of this encounter Plan of Treatment Not on file documented as of this encounter Procedures Procedure Name Priority Date/Time Associated Diagnosis Comments XR FOOT WEIGHT BEARING 3 VIEWS-LEFT Routine 09/11/2024 10:05 AM EST Hallux valgus (acquired), left foot documented in this encounter Results * XR Foot weight bearing 3 views-Left (09/11/2024 10:05 AM EST) Narrative OAH - 09/11/2024 10:05 AM EST This exam was performed in office at [facility] and images reviewed by orthopedic provider. ??Any findings are documented within ambulatory encounter note on date of service. Monique Gay GENERAL DUTY NURSE IMG DIAGNOSTIC IM AGING ORDERABLES [facility] documented in this encounter Visit Diagnoses Not on filedocumented in this encounter Care Teams Cork Floor Installer Relationship Specialty Start Date End Date Rufino Rajput MD [address] [place] [id number] PCP - General Internal Medicine 12/27/23 Francisco J Galeana MD 300 [facility] 154 [place] [address] Cardiology-Scan 01/06/24 Orion Rodriguez MD 31 [facility] 100 [place] [address] Surgery, Orthopedic 01/10/24 Kelby Celaya MD 100 [facility] 200 [place] [address] Physician Nephrology 01/10/24 System, Provider Not In 01/10/24 documented as of this encounter
--- OUTSIDE RECORDS SUMMARY | 2024-09-13 09:00 | XMS_ITS | Clinical Summary ---
Author Organization [facility] Address [address] [facility] [address] [place] [address] Phone Care Team Providers Care Fire Investigator Name Role Phone Rufino Rajput MD Primary Care Provider [phone] Allergies Active Allergy Reactions Criticality Noted Date Comments Codeine Other (see comments) 12/14/2013 Medications Multiple Vitamin (MULTIVITAMIN ADULT PO) Take 1 tablet by mouth 1 (one) time each day Active aspirin (ST RONDA) 81 MG EC tablet Take 1 tablet by mouth 1 (one) time each day Active atorvastatin (LIPITOR) 20 MG tablet Take 1 tablet by mouth 1 (one) time each day Active thiamine (VITAMIN B-1) 100 MG tablet Take 100 mg by mouth 1 (one) time each day Active pancrelipase, Shm-Zocs-Puqp, (CREON) 37163-46748 units capsule Take 1 capsule by mouth in the morning and 1 capsule at noon and 1 capsule in the evening. Take with meals. Active insulin aspart protamine-insul in aspart (NovoLOG 70/30) (70-30) 100 UNIT/ML injection Inject under the skin 2 (two) times a day before meals Active pregabalin (LYRICA) 75 MG capsule Take 150 mg by mouth in the morning and 150 mg in the evening and 150 mg before bedtime. Active Levemir FlexTouch 100 UNIT/ML injection 17 Units 09/10/2022 Active calcitriol (Rocaltrol) 0.25 MCG capsule Take 1 capsule (0.25 mcg total) by mouth 1 (one) time each day 30 capsule 11 01/10/2024 Active levoFLOXacin (LEVAQUIN) 750 MG tablet Take by mouth 1 (one) time each day Active insulin glargine (LANTUS) 100 UNIT/ML injection Inject 17 Units under the skin every night Active spironolactone (ALDACTONE) 25 MG tablet Take 1 tablet (25 mg total) by mouth 1 (one) time each day 90 tablet 3 07/20/2024 Active Active Problems Problem Noted Date Diagnosed Date Renal osteodystrophy 04/20/2024 Stage 3b chronic kidney disease 01/10/2024 Well controlled type 2 diabetes mellitus 023 Overview (04/24/2024): Replacing diagnoses that were inactivated after the 04/24/24 Regulatory Import Hyperkalemia 06/03/2023 06/03/2023 Body mass index 25-29 - overweight 06/03/2023 06/03/2023 Acquired hallux rigidus 07/05/2022 Polyneuropathy due to type 2 diabetes mellitus 1 09/05/2021 Follow-up status 07/05/2022 Overview (07/05/2022): SOAPP-R: 14 on 01/28/17 Severe obesity 07/05/2022 Edema of lower extremity 06/08/2022 Overview (07/05/2022): Last Assessment & Plan: We will obtain his most recent labs from his primary care physician's office. He was on furosemide 40 mg twice a day previously and medication was discontinued. Does not complain of shortness of breath. Echo cardiogram does not suggest constrictive pericarditis. I will resume low-dose furosemide 20 mg daily. We will repeat the labs in 1 week. Iron deficiency anemia 09/04/2021 Acute kidney failure 06/10/2021 Hypotension 06/10/2021 Anemia in chronic kidney disease 04/06/2021 Essential hypertension 04/06/2021 Acute nontraumatic kidney injury 04/06/2021 Type 2 diabetes mellitus wit h diabetic chronic kidney disease 01/03/2019 Stage 3a chronic kidney disease 05/01/2017 Uncontrolled type 2 diabetes mellitus 11/15/2013 Overview (04/24/2024): STORY: DOMINGO BURROWS RN [id number] PAULA IMPRESSION: BASED ON HOME MEASUREMENTS CONTROL IS INADEQUATE. WILL MAXIMIZE METFORMIN DOSE AND RECHECK LABS.; RECORDED 11/15/2013 1:29PM BY JACKIE BEAN MA, ANNOTATION/ADDENDUM Replacing diagnoses that were inactivated after the 04/24/24 Regulatory Import Pneumonia 11/15/2013 06/03/2023 Overview (06/03/2023): IMPRESSION: RADIOLOGIST READ STATES THERE MAY STILL BE CONSOLIDATION IN LUNG. PULMONARY TO REASSESS NEXT WEEK; RECORDED 11/15/2013 1:34PM BY JACKIE BEAN MA, OFFICE VISIT IMPRESSION: RADIOLOGIST READ STATES THERE MAY STILL BE CONSOLIDATION IN LUNG. PULMONARY TO REASSESS NEXT WEEK; RECORDED 01/09/2014 5:46PM BY ISSAC HERNÁNDEZ MD, ANNOTATION/ADDENDUM Lipoma 10/11/2013 06/03/2023 Overview (06/03/2023): IMPRESSION: MOST LIKELY DIAGNOSIS. REASSURANCE PROVIDED. IF CHANGES OR BECOMES UNCOMFORTABLE WILL EVALUATE FURTHER.; RECORDED 10/11/2013 12:56PM BY JACKIE BEAN MA, ANNOTATION/ADDENDUM Laboratory procedure performed 08/10/2013 1 08/03/2022 Overview (06/03/2023): RECORDED 08/10/2013 10:59AM BY ELEAZAR OAEKS MA, ANNOTATION/ADDENDUM Abdominal pain 04/10/2013 06/03/2023 Overview (06/03/2023): IMPRESSION: HAS RISK FACTORS FOR GASTRITIS. WILL START PPI EMPIRICALLY WHILE WAITING FOR GI F/U.; RECORDED 04/10/2013 3:36PM BY JACKIE BEAN MA, ANNOTATION/ADDENDUM Influenza vaccine needed 04/06/2013 023 Overview (06/03/2023): RECORDED 04/06/2013 1:37PM BY JACKIE BEAN MA, OFFICE VISIT Tobacco user 09/07/2012 06/03/2023 Overview (06/03/2023): RECORDED 09/07/2012 2:45PM BY SHERYL AGUIRRE MA, ANNOTATION/ADDENDUM History of clinical finding in subject 3 06/03/2023 Overview (06/03/2023): RECORDED 09/07/2012 2:45PM BY SHERYL AGUIRRE MA, ANNOTATION/ADDENDUM Cough 06/28/2012 06/03/2023 Overview (06/03/2023): IMPRESSION: SYMPTOMS PRESENT JUST UNDER 1 WEEK. WILL TREAT SYMPTOMATICALLY AND COVER FOR BACTERIAL SOURCE IF PERSISTANT.; RECORDED 06/28/2012 3:37PM BY SHERYL AGUIRRE MA, ANNOTATION/ADDENDUM Resolved Problems Problem Noted Date Diagnosed Date Resolved Date Underweight 09/07/2021 01/05/2022 Atypical angina 09/04/2021 09/04/2021 Carpal tunnel syndrome 09/04/202109/04 Degeneration of thoracic intervertebral disc 09/04/2021 Drowsy 09/04/2021 09/04/2021 Drug therapy finding 09/04/2021 022 Overview (09/04/2021): Lamotrigine ineffective at dose of 450mg/day Finding of activity of daily living 09/04/2021 09/04/2021 Overview (09/04/2021): initial Oswestry Disability Index: 56% ( severe disability ) on ; initial [place]: 13 on 01/27/17 Glaucoma 09/04/2021 09/04/2021 H/O: gastrointestinal disease 09/04/2021 09/04/2021 History of alcohol abuse 09/04/202105/2022 Peripheral neuropathic pain 09/04/2021 09/04/2021 Somatization disorder 09/04/20212021 Alcoholic cirrhosis of liver with ascites 06/10/2021 01/05/2022 Benign prostatic hyperplasia with lower urinary tract symptom 06/10/2021 01/05/2022 Cirrhosis of liver 06/10/2021 Difficulty in walking 06/10/20212021 Encephalopathy 06/10/2021 01/05/2022 Generalized edema 06/10/2021 01/05/2022 Generalized muscle weakness 06/10/2021 01/05/2022 Hepatic failure, not elsewhere classified 06/10/2021 01/05/2022 Non-pressure chronic ulcer o f other part of right foot 06/10/2021 01/05/2022 Other symptoms and signs inv olving cognitive functions and awareness 06/10/2021 01/05/2022 Protein-calorie malnutrition 06/10/2021 01/05/2022 Sepsis 06/10/2021 01/05/2022 Severe sepsis with septic shock 06/10/2021 01/05/2022 Spontaneous bacterial peritonitis 06/10/2021 01/05/2022 Thrombocytopenia 06/10/2021 01/05/2022 Unsteadiness on feet 06/10/2021 022 Anemia 04/06/2021 04/06/2021 Chronic pancreatitis 04/06/2021 021 Arteriosclerosis of coronary artery bypass graft 04/06/2021 04/06/2021 Coronary atherosclerosis 04/06/2021 Diabetic distal sensorimotor polyneuropathy 04/06/2021 04/06/2021 Gastroesophageal reflux disease 04/06/2021 04/06/2021 Hyperlipidemia 04/06/2021 04/06/2021 Pain of knee region 04/06/2021 04/06/20 21 Mitral valve regurgitation 04/06/2021 0 04/06/2021 Mononeuritis 04/06/2021 04/06/2021 Multiple joint pain 04/06/2021 04/06/20 21 Neuropathy due to diabetes mellitus 04/06/2021 04/06/2021 Pure hypercholesterolemia 04/06/2021 Serum creatinine above reference range 04/06/2021 04/06/2021 Type 2 diabetes mellitus 04/06/2021 Noncompliance with medication regimen 07/25/2020 04/06/2021 Aortic root dilatation 12/17/201904/06 Nuclear cataract 01/31/2019 04/06/2021 Narrow angle of anterior chamber of left eye 9 04/06/2021 Recurrent major depression 12/05/2018 0 04/06/2021 Steatosis of liver 09/14/2018 1 Dilatation of aorta 09/06/2018 04/06/20 21 Albuminuria 08/22/2018 04/06/2021 Bilateral tinnitus 10/04/2017 1 Sensorineural hearing loss 10/04/2017 0 04/06/2021 Pleural effusion 07/23/2013 09/04/2021 Old myocardial infarction 07/25/2000 Encounters Date Type Department Care Team Description 07/20/2024 9:30 AM EST Office Visit [facility] [address] [facility] [address] [place] [address] Kelby Celaya MD Stage 3b chronic kidney disease (HCC) (Primary Dx); Well controlled type 2 diabetes mellitus (HCC); Renal osteodystrophy; Essential hypertension 07/11/2024 Refill [facility] [address] [place] [address] [place] [phone] Kelby Celaya MD from Last 3 Months Immunizations Name Administration Dates Next Due Influenza (IM) Preservative Free 03/25/2020 Influenza Split High Dose Pr eservative Free IM 05/23/2015,03/30/2014 Influenza Split Preservative Free ID 04/06/2013, 06/05/2012 Influenza, MDCK, PF, Quadrivalent 04/24/2019, Influenza, Quadrivalent, Preservative Free 04/22 Influenza, Quadrivalent, With Preservative 04/23 Pfizer SARS-COV-2 04/18/2021,10/09/2020,09/18/19 21 Pneumococcal Conjugate 04/26/2008 Pneumococcal Polysaccharide 07/25/2013 Tdap 08/22/2018,04/26/2008 Family History Medical History Relation Comments Diabetes Mother Kidney disease Mother Hypertension Sibling Relation Status Comments Father Mother Sibling Social History Tobacco Use Types Packs/Day Years Used Date Smoking Tobacco: Former Cigarettes Q uit: 07/25/2004 Smokeless Tobacco: Never Tobacco Cessation:Counseling Given: Not Answered Alcohol Use Standard Drinks/Week Comments Not Currently 0 (1 standard drink = 0.6 oz pur e alcohol) Sex and Gender Information Value Date Recorded Sex Assigned at Not on file Legal Sex Male 4:44 PM EST Gender Identity Not on file Sexual Orientation Not on file Last Filed Vital Signs Vital Sign Reading Time Taken Comments Blood Pressure 136/80 07/20/2024 9:54 AM EST Pulse 74 07/20/2024 9:54 AM EST Temperature - - Respiratory Rate - - Oxygen Saturation 98% 07/20/2024 9:54 AM EST Inhaled Oxygen Concentration - - Weight 70.8 kg (156 lb) 07/20/2024 9:54 AM EST Height 182.9 cm (6') 08/11/2020 12:00 PM EST Body Mass Index 21.16 08/11/2020 12:00 PM EST Plan of Treatment Upcoming Encounters Date Type Department Care Team (Late st Contact Info) Description 01/21/2025 9:00 AM EDT Office Visit [facility] [address] [phone] Karen Plascencia ARNP [address] [phone] Health Maintenance Due Date Last Done Comments Colorectal Cancer Screening: Annual FOBT 12/28/2004 Colorectal Cancer Screening: Colonoscopy 12/28/2004 Colorectal Cancer Screening: Sigmoidoscopy 12/28/2004 Pneumococcal Vaccine: 65+ Years (2 of 2 - PCV) 07/25/2014 07/25/2013, 07/06/2013, 04/26/2008 Diabetes: Ophthalmology Exam 01/11/2022 Diabetes: Pedal Pulse Checked 01/11/2022 Diabetes: Sensory Foot Exam 01/11/2022 Diabetes: Visual Foot Exam 01/11/2022 Influenza Vaccine (#1) 2024 0, 04/24/2019, 04/21/2018, Additional history exists Diabetes: Hemoglobin A1C 04/12/2024 01/11/2024, 06/25 Hepatitis B Vaccine Aged Out No longe r eligible based on patient's age to complete this topic Procedures Procedure Name Priority Date/Time Associated Diagnosis Comments BLOOD PANEL (HC) Routine 07/22/2020 12:0 0 AM EST from Last 3 Months or Most Recently Relevant to Health Maintenance Results * (ABNORMAL) Blood Panel (07/22/2020 12:00 AM EST) Sodium 125(L) 137 - 145 mmol/L [facility] Phosphorus, Serum 4.2 2.5 - 4.5 mg/dl [facility] eGFR 56(L) >60 ml/min [facility] Hematocrit 30.6(L) 38 - 50 % [facility] eGFR Non- 49(L) >60 ml/min [facility] Platelets 171 140 - 440 k/uL [facility] Potassium 3.9 3.5 - 5.1 mmol/L [facility] Hgb 10.5(L) 13.0 - 16.5 g/dl [facility] Hemoglobin A1C 16.7(H) <5 % [facility] Carbon Dioxide (CO2) 25 22 - 30 mmol/L [facility] BUN 21(H) 9 - 20 mg/dl [facility] Creatinine 1.5(H) 0.70 - 1.30 mg/dl [facility] 07/22/2020 us [facility] [id number] LICITED RESULTS Final Result [facility] from Last 3 Months or Most Recently Relevant to Health Maintenance [place] [address] [place] [address] [place] [address] [place] [address] MEDICARE Care Teams Fire Investigator Relationship Specialty Start Date End Date Rufino Rajput MD [address] [place] [id number] PCP - General Internal Medicine 04/06/21
--- OUTSIDE RECORDS SUMMARY | 2024-09-13 09:00 | XMS_ITS | Clinical Summary ---
Author Organization [facility] Address [address] [place] [address] Care Team Providers Care Insurance Actuary Name Role Phone Rufino Rajput MD Primary Care Provider [phone] Allergies Active Allergy Reactions Criticality Noted Date Comments Codeine 01/13/2024 Medications Medication Sig Dispensed Refills Start Date End Date Status atorvastatin (LIPITOR) tablet 20 mg Take 1 tablet (20 mg total) by mouth daily. 0 Active thiamine mononitrate (VITAMIN B-1) 100 MG tablet Take 1 tablet (100 mg total) by mouth daily. 0 Active spironolactone (ALDACTONE) tablet 25 mg Take 1 tablet (25 mg total) by mouth daily. 0 Active aspirin EC 81 MG tablet Take 1 tablet (81 mg total) by mouth daily. 0 Active pancrelipase, Vtc-Ucxv-Qunt, (CREON) 86691-42097 units CPEP Take 1 capsule (24,000 units of lipase total) by mouth 3 (three) times a day with meals. 0 Active zolpidem (AMBIEN) 10 MG tablet Take 1 tablet (10 mg total) by mouth every night at bedtime as needed for sleep. 0 Active Insulin Detemir (LEVEMIR FLEXPEN SC) Inject 17 Units under the skin. 0 Active Insulin Aspart (NOVOLOG FLEXPEN SC) Inject under the skin. Sliding scale PRN 0 Active pregabalin (LYRICA) capsule 150 mg Take 1 capsule (150 mg total) by mouth 3 (three) times a day. 0 Active calcitRIOL (ROCALTROL) capsule 0.25 mcg Take 1 capsule (0.25 mcg total) by mouth every other day. 0 Active sodium bicarbonate 650 MG tablet Take 1 tablet (650 mg total) by mouth 2 (two) times a day. 0 Active Social History Tobacco Use Types Packs/Day Years Used Date Smoking Tobacco: Former Cigarettes Smokeless Tobacco: Never Comments:Quit smoking 25 yea rs ago. Alcohol Use Standard Drinks/Week Comments Not Currently 0 (1 standard drink = 0.6 oz pur e alcohol) Quit May/2021 Sex and Gender Information Value Date Recorded Sex Assigned at Not on file Gender Identity Not on file Sexual Orientation Not on file Job Start Date Occupation Industry Not on file Not on file Not on file Last Filed Vital Signs Vital Sign Reading Time Taken Comments Blood Pressure 151/76 01/17/2024 11:34 AM EDT Pulse 66 01/17/2024 11:34 AM EDT Temperature 36.9 ??C (98.4 ??F) 01/17/2024 11:34 AM E DT Respiratory Rate - - Oxygen Saturation 99% 01/17/2024 11:34 AM EDT Inhaled Oxygen Concentration - - Weight 70.5 kg (155 lb 6.4 oz) 01/17/2024 11:34 AM EDT Height 180.3 cm (5' 11 ) 01/17/2024 11:34 AM EDT Body Mass Index 21.67 01/17/2024 11:34 AM EDT Plan of Treatment Health Maintenance Due Date Last Done Comments Hepatitis C Screening 1955 Depression Screening 1967 Preventative Health Evaluation 12/28/1973 Colon Cancer Screening (Colonoscopy) 12/28/2000 Shingrix-Zoster Vaccine (1 of 2) 12/28/2005 Fall Risk Assessment 12/28/2020 Pneumococcal Vaccine (3 of 3 - PPSV23 or PCV20) 12/28/2020 07/24/2013, 04/26/2008 COVID-19 Vaccine ( season) 2024 04/18/2021, 10/09/2020, 09/18/2020 Influenza Vaccine (#1) 2024 9, 04/21/2018, 04/22/2017, Additional history exists DTap / Tdap / Td (3 - Td or Tdap) 08/22/2028 08/22/2018, 04/26/2008 RSV Adult > 60+ Yrs or (1 - 1-dose 75+ series) 12/28/2030 Hepatitis B Vaccines Aged Out No long er eligible based on patient's age to complete this topic RSV Ped < 20 months Aged Out No longe r eligible based on patient's age to complete this topic Care Teams Insurance Actuary Relationship Specialty Start Date End Date Rufino Rajput MD [address] [facility] [place] [phone] PCP - General Internal Medicine 01/13/24
--- OUTSIDE RECORDS SUMMARY | 2024-09-13 09:00 | XMS_ITS | Patient Health Record ---
Author Organization [facility] Address [address] [facility] [place] [address] Care Team Providers Care Math And Science Instructor Name Role Phone Regulo CONKLIN, [facility] Primary [facility] Provider Ni Almanza Unavailable [phone] Zhang Luis Unavailable [phone] Allergies Allergen (clinical drug ingredient) Drug/Non Drug Allergy documented on EMR Reaction Allergy Type Onset Date Status codeine Codeine Sulfate rapid pulse, shortness of breath, hypertation, sweats Drug Allergy Active Results Component Value Reference Range Notes HEMOGLOBIN A1C (GLYCOHEMOGLO BIN) Reviewed date:09/29/2023 11:00:40 AM Interpretation: Performing Lab: Notes/Report: HEMOGLOBIN A1C (GLYCOHEMOGLO BIN) Reviewed date:09/29/2023 11:07:05 AM Interpretation: Performing Lab: Notes/Report: HEMOGLOBIN A1C % (HH) 7.6 HEMOGLOBIN A1C (GLYCOHEMOGLO BIN) Reviewed date:02/24/2024 09:09:03 AM Interpretation: Performing Lab: Notes/Report: HEMOGLOBIN A1C % (HH) 7.1 HEMOGLOBIN A1C (GLYCOHEMOGLO BIN) Reviewed date:07/12/2024 09:56:01 AM Interpretation: Performing Lab: Notes/Report: TOTAL HEMOGLOBIN (HGBA1C) 6.7 Reason For Referral No Information Medications Medication SIG (Take, Route, Frequency, Duration) Notes Start Date End Date Status Folic Acid 1 MG Oral for 90 No t-Taking Antibiotic Not-Takin g Aspirin 81 MG 1 tablet Orally Once a day Active glyBURIDE 5 MG Oral for 30 Not -Taking Spironolactone 25 MG 1 tablet Orally for 30 day(s) Active Ferrous Sulfate 325 (65 Fe) MG 1 tablet Orally Once a day Not-Taking Multivitamins Orally Active glipiZIDE Not-Taking Atorvastatin Calcium 20 MG 1 tablet Orally Once a day Active Gabapentin 600 MG Oral for 90 Not-Taking Extra Depth Orthopedic Shoes (1 Pair) with Customized Heat Molded Multidensity Innersoles (3 Pair) as directed Dx: NIDDM/Polyneuropathy (E11.42), Hammertoe Foot Deformity (M20.41,M20.42), Preulcerative Skin Lesion(s) (L85.1 07/12/2024 Active Vitamin C Not-Taking Lyrica 50 MG 1 capsule Orally Three times a day Not-Taking Extra Depth Diabetic Shoes with 3 Pair Custom heat-molded multi-density innersoles for 1 year Dx: Active Ketostix In Vitro for 50 Not- Taking Vitamin B-1 100 MG 1 tablet Orally Once a day for 30 day(s) Not-Taking metFORMIN HCl 1000 MG Oral for 30 Not-Taking Zenpep Not-Taking Lisinopril 20 MG Oral for 90 N ot-Taking Levemir Active NovoLOG sliding scale Active Extra Depth Diabetic Shoes with 3 Pair Custom heat-molded multi-density innersoles for 1 year Dx: 02/25/2021 Not-Taking Creon Active Nitrostat 0.4 MG Sublingual No t-Taking Lactulose Not-Taking Physical Therapy . . . 2-3x/week for 3-4 weeks Not-Taking Physical Therapy . . . 2-3x/week for 3-4 weeks 03/01/2014 Not-Taking Basaglar KwikPen Not -Taking Furosemide 40 MG 1 tablet Orally Once a day for 30 day(s) Not-Taking Doxycycline Hyclate Active Tamsulosin HCl 0.4 MG 1 capsule Orally Once a day for 30 day(s) Not-Taking Omeprazole 40 MG 1 capsule 30 minutes before morning meal Orally Once a day for 30 day(s) Not-Taking Sodium Bicarbonate 650 MG as directed Orally Active FreeStyle Lancets for 90 No t-Taking Amoxicillin Active FreeStyle Lite Test In Vitro for 90 Not-Taking Pregabalin 100 MG 1 capsule Orally Three times a day Active Metoprolol Succinate ER 50 MG 1 tablet Orally Once a day Not-Taking Calcitriol 0.25 MCG 1 capsule Orally Three times a Week Active Insulin Cartridge 3ML Not-Taking Zolpidem Tartrate No t-Taking Enulose Not-Taking Immunizations Vaccine Route Administration Date Status Comme nts COVID-19 Pfizer BioNTech Vaccine Unknown 04/25/2021 Administered 1st 09/18/2020 2nd [...] Problem Acquired hammer toe of right foot (0244022022443612 ) Other hammer toe(s) (acquired), right foot (M20.41) Active confirmed Problem Acquired hallux valgus (73418538) Hallux valgus (acquired), left foot (M20.12) Active confirmed Problem Acquired hammer toe of left foot (1598680583795477 ) Other hammer toe(s) (acquired), left foot (M20.42) Active confirmed Problem Chronic ulcer of foot (541587826) Non-pressure chronic ulcer of other part of left foot with fat layer exposed (L97.522) Active confirmed Problem Polyneuropathy due to type 2 diabetes mellitus (294023103) Type 2 diabetes mellitus with diabetic polyneuropathy (E11.42) Active confirmed Problem Non-pressure chronic ulcer of other part of left foot limited to breakdown of skin (L97.521) Active confirmed Problem Polyneuropathy due to type 2 diabetes mellitus (871545943) Type 2 diabetes mellitus with diabetic polyneuropathy (E11.42) Active confirmed Problem Polyneuropathy due to diabetes mellitus type I (409620822) Type 1 diabetes mellitus with diabetic polyneuropathy (E10.42) Active confirmed Problem Acquired hallux rigidus (2150985) Hallux rigidus, right foot (M20.21) Active confirmed Vital Signs Blood pressure diastolic 80 mm Hg 07/12/2024 Height 5ft 11in in 07/12/2024 Blood pressure systolic 120 mm Hg 07/12/2024 Weight 155 lbs 07/12/2024 BMI 21.62 kg/m2 07/12/2024 Procedures Procedure Date Ordered Date Performed Result Body Sit e 24227-WZQURCE SKIN/TISSUE 10/07/2023 N/A 01901-WZSDBHF NAIL, 6 OR MORE 07/12/2024 N/A 20839-DULZ SKIN LESIONS, OVER 4 07/12/2024 N/A Encounters Encounter Location Date Provider Diagnosis [address] [address] 09/29/2023 Zhang Luis Type 1 diabetes mellitus [...] foot limited to breakdown of skin L97.521 [facility] [address] [address] 10/07/2023 Zhang Luis Type 1 diabetes mellitus [...] skin L97.521 and Exposed orthopaedic hardware T84.498A [address] [address] 12/16/2023 Zhang Luis Type 1 diabetes mellitus [...] foot limited to breakdown of skin L97.[address] [address] 02/24/2024 Zhang Luis Type 1 diabetes mellitus with diabetic polyneuropathy E10.42 ; Tinea unguium B35.1 ; Pain in right toe(s) M79.674 ; Pain in left toe(s) M79.675 ; Hallux valgus (acquired), left foot M20.12 ; Skin disease L98.9 ; Hallux rigidus, right foot M20.21 ; Localized edema R60.0 ; Pain in left foot M79.672 and Pain in right foot M79.[address] [address] 05/04/2024 Zhang Luis Type 1 diabetes mellitus with diabetic polyneuropathy E10.42 ; Tinea unguium B35.1 ; Pain in right toe(s) M79.674 ; Pain in left toe(s) M79.675 ; Hallux valgus (acquired), left foot M20.12 ; Skin disease L98.9 ; Hallux rigidus, right foot M20.21 ; Localized edema R60.0 ; Pain in left foot M79.672 and Pain in right foot M79.[address] [address] 07/12/2024 Ni Leone Other hammer toe(s) (acquired), right foot M20.41 ; Other hammer toe(s) (acquired), left foot M20.42 ; Type 2 diabetes mellitus with diabetic polyneuropathy E11.42 and Tinea unguium B35.[address] [address] 09/19/2023 Zhang Luis [place] [address] [place] [address] 09/29/2023 Zhang Luis [facility] [address] 12/16/2023 Zhang Luis Type 1 diabetes mellitus with diabetic polyneuropathy E10.[address] [address] 12/21/2023 Zhang Luis Assessments Encounter Date Diagnosis [...] mellitus with diabetic polyneuropathy (ICD-10 - E10.42) 07/12/2024 Other hammer toe(s) (acquired), right foot (ICD-10 - M20.41) Patient Educated with: DIABETIC FOOT CARE INSTRUCTIONS. pdf (DIABETIC FOOT CARE INSTRUCTIONS. pdf) 07/12/2024 Other hammer toe(s) (acquired), left foot (ICD-10 - M20.42) 07/12/2024 Type 2 diabetes mellitus with diabetic polyneuropathy (ICD-10 - E11.42) 05/04/2024 Tinea unguium (ICD-10 - B35.1) 02/24/2024 [...] Pain in right toe(s) (ICD-10 - M79.674) 07/12/2024 Tinea unguium (ICD-10 - B35.1) 05/04/2024 Pain in left toe(s) (ICD-10 - [...] X ray : Foot, right 3V 12/31/2022 24074-NBKFSYO NAIL, 6 OR MORE 07/12/2024 67752-KXXKSSL SKIN/TISSUE 10/07/2023 13745-CGSEKAN SKIN/TISSUE 04/30/2021 04536-QQPMIQL SKIN/TISSUE 08/03/2021 68624-XALY SKIN LESIONS, OVER 4 07/12/20 24 30368-BJYF SKIN LESIONS, 2 TO 4 08/03/19 22 50228-EPZZ SKIN LESIONS, 2 TO 4 04/30/20 21 66225-NJMD SKIN LESIONS, 2 TO 4 02/26/20 21 29827-YGKATFBY OF HEMATOMA/FLUID 022 Next Appt Details Provider Name:Ni Lee perla, 11/02/2024 01:00:00 PM, [address] [facility], [address], [place], [address], Insurance Providers Payer Name Payer Address Payer Phone Subscriber Number Group Number Insured Name Patient Relationship to Insured Coverage Start Date Coverage End Date Medicare National [employer] [address] [place] [address] [id number] Quentin Lara Self - patient is the insured [facility] [address] [place] [address] [id number] Quentin Lara Self - patient is [...] bunion surgery 02/03/24 Hospitalization History Reason Date(Month/Year) [facility]- stent, kidney sones, 3 day stay 01/23 04/15 [facility] ER- Coundn't get up/lanre d -KidneyLiver failure-swelling/Infection ICU few weeks -rehab 6wks 05/29/2021 [facility] - pneumonia 06/2013-1-14
--- OUTSIDE RECORDS SUMMARY | 2024-09-13 09:00 | XMS_ITS ---
Author Organization [facility] Address [address] [place] [address] Care Team Providers Care Surgical Device Sales Representative Name Role Phone Regulo CONKLIN, [facility] Primary [facility] Provider UnavailNi Banks Unavailable [phone] Zhang Luis Unavailable [phone] Allergies Allergen (clinical drug ingredient) Drug/Non Drug [...] 05/04/2024 Encounters Encounter Location Date Provider Diagnosis [facility] [address] [place] [address] 05/04/2024 Zhang Luis Type 1 diabetes mellitus [...] Follow Up: 2 Months, Reason: Provider Name:Ni Peoplesximena duncan, 11/02/2024 01:00:00 PM, [address] [facility], [address], [place], [address], Procedure Notes * Category Sub-Category Detail Notes [...] as necessary. Patient chooses, no pharmaceutical tx (08489) Keratoma Treatment Parring or Cutting o f Benign Hyperkeratotic Lesion(s) 82838 (2-4 Lesions) - The Benign hyperkeratotic lesions, as described above were pared, and/or cut utilizing a sterile #15 blade, tissue nippers, and/or dremel Progress Notes * Quentin LARA SDOB:[birth year] (68 yo M)Acc No.[id number]:05/04/2024 Progress Note Patient:Quentin Herrmann Provider:?Zhang Luis DPM :1955???Age:68 Y???Sex:Male Santana e:05/04/2024 Address:[address] [place] [address] [place] , [id number] Pcp:Rufino Rajput MD Subjective: * Chief Complaints: [...] * Hospitalization/Major Diagno stic Procedure:?[facility] - pneumonia 06/20137038-9-05[facility] ER- Coundn't get up/stand -KidneyLiver failure-swelling/Infection ICU [...] ?Exercise: yes, walking. ?Marital status: single. ?Occupation: Retired-[employer]. * Medications:?TakingDoxycycli ne Hyclate Amoxicillin Sodium Bicarbonate [...] Depth Diabetic Shoes with 3 Pair Custom heat- molded multi-density innersoles for 1 year Dx:Antibiotic Folic [...] as necessary. Patient chooses, no pharmaceutical tx (25441).?Keratoma Treatment:?Parring or Cutting of Benign Hyperkeratotic Lesion(s)?73545 (2-4 Lesions) - The Benign hyperkeratotic lesions, as described above were pared, and/or cut utilizing a sterile #15 blade, tissue nippers, and/or dremel.? * Procedure Codes:?90910 DEBRI DE NAIL, 6 OR MORE, Modifiers: XS 90393 TRIM SKIN LESIONS, 2 TO 4, Modifiers: XS * Follow Up:?2 Months * Images: * Sign off status: Completed true * Provider:?Zhang Luis DPM Date:? 024 Generated for Lucyi bharat/Carrie/eTransmitting on:?09/13/2024 09:00 AM EST History and Physical Notes * [...] 1/4, B/L PT PULSES (B): 1/4, B/L TELANGECTASIA: absent, B/L Nails NAILS are: Elongated, overg rown, dystrophic, lytic, greater than 3mm thick, discolored and friable with crumbly malodorous subungual debris, with dull to no pain on palpation due to neuropathy, 1-5 B/L
--- OUTSIDE RECORDS SUMMARY | 2024-09-13 09:00 | XMS_ITS | Clinical Summary ---
Author Organization [facility] Address [address] [place] [address] Care Team Providers Care Ict Support Technicians Name Role Phone Rufino Rajput MD Primary Care Provider [phone] Francisco J Galeana MD Unavailable Orion Rodriguez MD Unavailable [phone] Kelby Celaya MD Unavailable [phone] System, Provider Not In Unavailable Unavaila ble Allergies Active Allergy Reactions Criticality Noted Date Comments Codeine Other (See Comments),Palpitations Medium Medications Medication Sig Dispensed Refills Start Date End Date Status atorvastatin (LIPITOR) 20 MG tablet Take 1 tablet (20 mg total) by mouth nightly. Active calcitRIOL (ROCALTROL) 0.25 MCG capsule Take 1 capsule (0.25 mcg total) by mouth every morning. 01/10/2024 Active insulin aspart protamine-insulin aspart (NovoLOG MIX 70/30) (70-30) 100 units/mL injection Inject under the skin 2 (two) times a day before meals. Per sliding scale Active insulin glargine (Lantus SoloStar) 100 units/mL prefilled pen injection Inject 17 Units under the skin every morning. 09/06/2023 Active nitroglycerin (NITROSTAT) 0.[address] 1 tablet as needed by sublingual route. Active pancrelipase (Creon) 99171-430[address] units Cap [address] Particles Take 1 capsule (24,000 Units total) by mouth 3 (three) times a day with meals. Active pregabalin (Lyrica) 50 MG capsule Take 3 capsules (150 mg total) by mouth 3 (three) times a day. Active sodium bicarbonate 650 MG tablet Take 1 tablet (650 mg total) by mouth 2 (two) times a day. 01/10/2024 Active spironolactone (ALDACTONE) 25 MG tablet Take 1 tablet (25 mg total) by mouth every morning. 11/01/2023 Active thiamine (VITAMIN B-1) 100 mg tablet Take 1 tablet (100 mg total) by mouth daily. 11/18/2023 Active multivitamin Tab tablet Take 1 tablet by mouth daily. Active sulfamethoxazole-trim ethoprim (BACTRIM DS,SEPTRA DS) 800-160 MG per tabletIndications:Oth er osteomyelitis of right foot Take 1 tablet by mouth 2 (two) times a day. 28 tablet 02/07/2024 Active acetaminophen (TYLENOL) 500 MG tabletIndications:Duc lux valgus (acquired), left foot Take 1 tablet (500 mg total) by mouth 4 times daily (every 6 hours) as needed for mild pain or moderate pain. 84 tablet 04/12/2024 Active aspirin enteric coated (ECOTRIN LOW STRENGTH) 81 MG EC tabletIndications:Duc lux valgus (acquired), left foot Take 1 tablet (81 mg total) by mouth 2 times a day. With Food Post op 42 tablet 04/12/2024 Active methocarbamol (ROBAXIN) 500 MG tabletIndications:Duc lux valgus (acquired), left foot Take 1 tablet (500 mg total) by mouth 2 (two) times a day as needed for muscle spasms. 10 tablet 04/12/2024 Active oxyCODONE (ROXICODONE) 5 MG immediate release tabletIndications:Duc lux valgus (acquired), left foot Take 1 tablet (5 mg total) by mouth 4 times daily (every 6 hours) as needed for severe pain. Max Daily Amount: 20 mg 28 tablet 04/12/2024 Active Active Problems Problem Noted Date Diagnosed Date Osteomyelitis 02/03/2024 Dilation of aorta 01/10/2024 Assessment & Plan (01/10/2024 7:19 PM EDT): ECHO Painful orthopaedic hardware 01/08/2024 Assessment & Plan (01/08/2024 2:16 PM EDT): Acute osteomyelitis of right ankle or foot. Plan 02/03/24 removal right foot hardware, bone biopsy. Surgeon is Dr Hayde Rodriguez. Acute osteomyelitis of right ankle or foot 01/07 Type 2 diabetes mellitus wit hout complication, without long-term current use of insulin 01/08/2024 Assessment & Plan (01/08/2024 2:33 PM EDT): preop A1C: Managed with Peripheral polyneuropathy 01/08/2024 Assessment & Plan (01/10/2024 7:14 PM EDT): Secondary to diabetes Managed with Prergabalin (directed to take the day of surgery). Essential hypertension 01/08/2024 Assessment & Plan (01/10/2024 7:12 PM EDT): Blood pressure in PREPARE> Managed with spironolactone (directed to not take the day of surgery) Pure hypercholesterolemia 01/08/2024 Assessment & Plan (01/10/2024 7:15 PM EDT): Managed with Atorvastatin (directed to take the evening before surgery). Coronary artery disease invo lving [place] heart without angina pectoris 01/08/2024 Assessment & Plan (01/10/2024 7:13 PM EDT): MD Follows with cardiology. Cardiac clearance scheduled 01/24/24 at 9:20 am. CABG x 3. Managed with baby aspirin (directed to take the morning of surgery) and nitroglycerine (directed to take day of surgery if needed) Gastroesophageal reflux disease without esophagi tis 01/08/2024 Assessment & Plan (01/08/2024 2:36 PM EDT): Managed with Pancreatic insufficiency 01/08/2024 Assessment & Plan (01/10/2024 7:10 PM EDT): Chronic Managed with Pancrelipase (directed to not take the day of surgery) Alcoholic cirrhosis 01/08/2024 Assessment & Plan (01/10/2024 7:11 PM EDT): Follows with LFT Managed with spironolactone (directed to not take the day of surgery) History of alcohol abuse 01/08/2024 Assessment & Plan (01/08/2024 2:38 PM EDT): Sober since Anxiety and depression 01/08/2024 Assessment & Plan (01/08/2024 2:39 PM EDT): Managed with Resolved Problems Problem Noted Date Diagnosed Date Resolved Date Glaucoma 01/08/2024 01/10/2024 Assessment & Plan (01/08/2024 2:33 PM EDT): Managed with Encounters Date Type Department Care Team Description 09/11/2024 10:00 AM EST Ancillary Procedure [facility] [address] [address] Arrived 09/11/2024 9:45 AM EST Office Visit [facility] [address] [address] Monique Gay APRN Hallux valgus (acquired), left foot (Primary Dx) 07/10/2024 10:35 AM EST Ancillary Procedure [facility] [address] [address] 07/10/2024 10:15 AM EST Office Visit [facility] [address] [address] Monique Gay APRN Hallux valgus (acquired), left foot (Primary Dx) 06/27/2024 Refill [facility] [address] [address] Monique Gay APRN Hallux valgus (acquired), left foot from Last 3 Months Family History Medical History Relation Name Comments Heart attack Father Heart disease Father Kidney disease Mother No Known Problems Sister 1 No Known Problems Sister 2 Relation Name Status Comments Brother Father (Age 59) Mother Sister 1 Alive Sister 2 Alive Social History Tobacco Use Types Packs/Day Years Used Date Smoking Tobacco: Former Cigarettes 0.5 20 1 980 - 2000 Smokeless Tobacco: Never Tobacco Cessation:Counseling Given: Not [...] Orientation Heterosexual (straight) 02/01 2:07 PM EDT Last Filed Vital Signs Vital Sign Reading Time Taken Comments Blood Pressure 138/67 02/03/2024 11:15 AM EDT Pulse 48 02/03/2024 11:15 AM EDT Temperature 35.7 ??C (96.2 ??F) 02/03/2024 11:15 AM E DT Respiratory Rate 16 02/03/2024 11:15 AM EDT Oxygen Saturation 98% 02/03/2024 11:15 AM EDT Inhaled Oxygen Concentration - - Weight 70.4 kg (155 lb 3.2 oz) 01/11/2024 11:20 AM EDT Height 175.3 cm (5' 9 ) 01/11/2024 11:20 AM EDT Body Mass Index 22.92 01/11/2024 11:20 AM EDT Plan of Treatment Health Maintenance Due Date Last Done Comments Hepatitis C Virus Screening 1955 Foot Exam 12/28/1965 Lipid Panel 12/28/1965 Ophthalmology Exam 12/28/1965 Microalbumin/Creatinine Ratio Urine 12/28/1973 DTaP/Tdap/Td Vaccines (1 - Tdap) 12/28/1974 Pneumococcal Vaccines 50+ (1 of 2 - PCV) 12/28/1974 Colonoscopy 12/28/2000 Zoster (Shingles) Vaccine (1 of 2) 12/28/2005 RSV Vaccine 60 years and older and Patients (1 - Risk 60-74 years 1-dose series) 2015 Abdominal Aortic Aneurysm (AAA) Screening 12/28/2020 Influenza Vaccine 02/23/2024 04/14/2023, , 04/18/2021, Additional history exists COVID-19 Vaccine ( season) 2024 04/18/2021, 10/09/2020, 09/18/2020 Hemoglobin A1C 07/12/2024 01/11/2024, 01/11/2024 Creatinine with GFR 01/10/2025 01/11/2024 Hepatitis B Vaccines Aged Out No long er eligible based on patient's age to complete this topic Medical Devices Implanted Type Area Drum Handler Device Identifier Shelf Expiration Date Model / Serial / Lot 620-005 Filler Bone Void 5cc 12.5cc Calcium Slf Stimulan Rpd Cure - [id number] Implanted:Qty : 1 on 02/03/2024 by Orion Rodriguez MD at [facility] Void Filler Right: Foot [employer] [id number] 03/24/2026 620-005 / / [id number] Procedures Procedure Name Priority Date/Time Associated Diagnosis Comments XR FOOT WEIGHT BEARING 3 VIEWS-LEFT Routine 09/11/2024 10:05 AM EST Hallux valgus (acquired), left foot XR FOOT 3+ VIEWS-LEFT Routine 07/10/2024 10:38 AM EST Hallux valgus (acquired), left foot HEMOGLOBIN A1C WITH ESTIMATED AVERAGE GLUCOSE Routine 01/11/2024 12:22 PM EDT Preop examination Painful orthopaedic hardware (HCC) Acute osteomyelitis of right ankle or foot (HCC) Peripheral polyneuropathy Essential hypertension Pure hypercholesterolemia Coronary artery disease involving [place] heart without angina pectoris, unspecified vessel or lesion type Gastroesophageal reflux disease without esophagitis Pancreatic insufficiency Alcoholic cirrhosis, unspecified whether ascites present (HCC) History of alcohol abuse Anxiety and depression Dilation of aorta (HCC) BASIC METABOLIC PANEL Routine 01/11/2024 12:22 PM EDT Preop examination Painful orthopaedic hardware (HCC) Acute osteomyelitis of right ankle or foot (HCC) Peripheral polyneuropathy Essential hypertension Pure hypercholesterolemia Coronary artery disease involving [place] heart without angina pectoris, unspecified vessel or lesion type Gastroesophageal reflux disease without esophagitis Pancreatic insufficiency Alcoholic cirrhosis, unspecified whether ascites present (HCC) History of alcohol abuse Anxiety and depression Dilation of aorta (HCC) from Last 3 Months or Most Recently Relevant to Health Maintenance Results * XR Foot weight bearing 3 views-Left (09/11/2024 10:05 AM EST) Narrative [facility] - 09/11/2024 10:05 AM EST This exam was performed in office at [facility] and images reviewed by orthopedic provider. ??Any findings are documented within ambulatory encounter note on date of service. Monique Gay APRN IMG DIAGNOSTIC IM AGING ORDERABLES Performing Organization Address [facility] Co de Phone Number [facility] * XR Foot 3+ views-Left (07/10/2024 10:38 AM EST) Narrative [facility] - 07/10/2024 10:38 AM EST This exam was performed in office at [facility] and images reviewed by orthopedic provider. ??Any findings are documented within ambulatory encounter note on date of service. Monique Gay APRN IMG DIAGNOSTIC IM AGING ORDERABLES Performing Organization Address [facility] de Phone Number [facility] * (ABNORMAL) Hemoglobin A1c with Estimated Average Glucose (01/11/2024 12:22 PM EDT) Hemoglobin A1C 7.4(H) <5.7 % 01/11/2024 8:16 PM EDT [facility] Comment: A1c% ? Interpretation 5.7 - 6.0 ?Increase risk of diabetes 6.1 - 6.4 ?Higher risk of diabetes > or = 6.5 ?? Consistent with diabetes Diabetes Care, 33(Supp 1):S1-S61, 2010 Estimated Average Glucose 166 mg/dL 01/11/2024 8:16 PM EDT [facility] Blood Blood specimen / Unknown 01/11/2024 12:22 PM EDT 01/11/2024 7:01 PM EDT Kaykay Bailey APRN LAB BLOOD ORDERABLES [address] [address], [place] [address] * (ABNORMAL) Basic Metabolic Panel (01/11/2024 12:22 PM EDT) Glucose 231(H) 65 - 99 mg/dL 01/11/2024 7:38 PM EDT [facility] Comment:Fasting: <100 mg/dL, Non-Fasting: <200 mg/dL (ADA 2004) Blood Urea Nitrogen (BUN) 34(H) 8 - 21 mg/dL 01/11/2024 7:38 PM EDT [facility] Creatinine 2.1(H) 0.5 - 1.3 mg/dL 01/11/2024 7:38 PM EDT [facility] eGFR 34(L) >59 01/11/2024 7:38 PM T [facility] Comment:CKD-EPI (2020) in mL /min/1.73 sq meters. Sodium 138 136 - 145 mmol/L 01/11/2024 7:38 PM EDT [facility] Potassium 5.2 3.4 - 5.3 mmol/L 01/11/2024 7:38 PM EDT [facility] Chloride 108(H) 98 - 107 mmol/L 01/11/2024 7:38 PM EDT [facility] CO2 19(L) 22 - 33 mmol/L 01/11/2024 7:38 PM [facility] Anion Gap 11 7 - 17 01/11/2024 7:38 PM EDT [facility] Calcium 9.0 8.7 - 10.5 mg/dL 01/11/2024 7:38 PM T [facility] BUN/Creatinine Ratio 16 10.0 - 25.0 Ratio 01/11/2024 7:38 PM T [facility] Blood (Plasma/Serum) 01/11/2024 12:22 PM EDT 01/11/2024 7:01 PM EDT Kaykay Bailey [facility] [place] [address], [address] [address] from Last 3 Months or Most Recently Relevant to Health Maintenance Advance Directives * Full Code (Latest Code Status on File) Date Activated Date Inactivated Comments 02/03/2024 7:41 AM Care Teams Ict Support Technicians Relationship Specialty Start Date End Date Rufino Rajput MD [address] [place] [address] PCP - General Internal Medicine 12/27/23 Francisco J Galeana MD 300 [facility] [address] [place] [address] Cardiology-Scan 01/06/24 Orion Rodriguez MD 31 [facility] [address] [place] [address] Surgery, Orthopedic 01/10/24 Kelby Celaya MD 100 [facility] [address] [place] [address] Physician Nephrology 01/10/24 System, Provider Not In 01/10/24
--- OUTSIDE RECORDS SUMMARY | 2024-09-13 09:00 | XMS_ITS | Data Portability ---
Author Organization [facility], Main Office Address [address] [facility] [address] [place] [address] Care Team Providers Care Space Operations Officer Name Role Phone GLYNN HERNÁNDEZ Primary Care Provider SATHISH BRISENO Wet Machine Operator JACKY ROUSE Fourdrinier Wire Weaver KATIE NAVARRO News Librarian KATHE FITZPATRICK Yard Warehouse Worker JESSICA MINAYA Soda Fountain Clerk [phone] SEBASTIEN LINK Director Of Accounting Assessment No assessment recorded. Plan of Treatment Reminders Order Date Submit Date Provider Last Modified By Organization Details Last Modified Time Details Appointments None recorded. Lab hemoglobi n A1C, fingersti ck 2018 019 [email or web address] In-Office Order, Internal Use Only DO Not Attach Compendium DO Not Attach Compendium, Do Not Delete/merge, [id number] 9 16:07:07 HbA1c (hemoglob in A1c), blood 2018 019 [facility], [address], [place], [address], 9 22:21:36 HbA1c (hemoglob in A1c), blood 2018 019 [facility], [address], [place], [address], 9 22:21:53 CMP, serum or plasma 2018 019 [facility], [address], [address], [place], [address], 9 18:48:40 urinalysi s, complete 2018 019 [facility], [address], [address], [place], [address], 9 18:33:34 CBC w/ auto diff 2018 019 [facility], [address], [address], [place], [address], 9 18:49:41 HbA1c (hemoglob in A1c), blood 2018 019 [facility], [address], [address], [place], [address], 9 22:55:14 ESR (erythroc yte sedimenta tion rate), blood 2018 019 [facility], [address], [address], [place], [address], 9 20:12:23 activated partial thrombopl astin time, coagulati on assay, blood 2018 019 [facility], [address], [address], [place], [address], 9 19:34:47 PT/INR 2018 019 [facility], [address], [address], [place], [address], 9 19:44:19 CMP, serum or plasma 2018 019 [facility], [address], [address], [place], [address], 9 19:58:54 CBC w/ auto diff 2018 019 [facility], [address], [address], [place], [address], 9 19:39:56 PSA, serum or plasma 2018 019 [facility], [address], [address], [place], [address], 9 15:15:17 BMP, serum or plasma 2018 019 [facility], [address], [address], [place], [address], 9 15:27:39 CBC w/ auto diff 2018 019 [facility], [address], [address], [place], [address], 9 13:47:02 iron + total iron-bind ing capacity (TIBC), serum 2018 019 [facility], [address], [address], [place], [address], 9 16:15:02 Referral pain managemen t referral - for follow up on pt with chronic worsenign neuropath y 2018 019 [email or web address] [facility], [address] [place], [address], 9 09:41:11 diabetic ophthalmo logy referral 2018 019 KATHY Not available 9 17:39:39 gastroent erologist referral - for eval of pt with anemia and wt loss 2018 019 jeri Minaya MD, [address] [place], [address], 9 17:45:57 nutrition ist/dieti aneudy referral 2018 019 KATHY Not available 16:40:32 Procedures None recorded. Surgeries None recorded. Imaging None recorded. Medication Orders Lantus Solostar U-100 Insulin 100 unit/mL (3 mL) subcutane ous pen 2018 019 [email or web address] [facility]/Pharmacy #[id number], [address] [place] [address], [place], [address], 9 16:07:07 mirtazapi ne 30 mg tablet 2018 019 [facility]/Pharmacy #2339, [address] [place] [address], [place], [address], 9 09:37:51 venlafaxi ne ER 75 mg capsule,e xtended release 24 hr 2018 019 [facility]/Pharmacy #2339, [address] [place] [address], [address], 9 11:06:36 mirtazapi ne 15 mg tablet 2018 019 berenice [facility]/Pharmacy #2339, [address] [place] [address], [place], [address], 9 16:22:14 venlafaxi ne ER 75 mg capsule,e xtended release 24 hr 2018 019 [facility]/Pharmacy #2339, [address] [place] [address], [address], 9 11:06:36 Nitrostat 0.4 mg sublingua l tablet 2018 019 INTERFACE [facility]/Pharmacy #2339, [address] [place] [address], [place], [address], 9 10:55:03 Patient Targets Encounter Date Encounter Id Patient Goals Patient Target Last Modified By Organization Details Last Modified Time 01/03/2019 [id number] Ongoing of Microalbumin/Cre atinine Ratio yearly Not available Not available Not available Ongoing of Blood Pressure 130 / 80 Not available Not available Not available Ongoing [...] By Organization Details Last Modified Time 09/19/2018 [id number] Nutrition Referral and Weight Management Follow-up Information berenice Not available 09/19/2018 10:55:01 anemia: care instructions [email or web address] Not available 09/19/2018 10:55:01 10/20/2018 [id number] Diabetic Foot Exam awychowski Not available 10/20/2018 [...] appt. berenice Not available 10/20/2018 14:49:41 11/17/2018 [id number] learning about type 2 diabetes nbarrows Not available 12/05/2018 09:37:50 type 2 diabetes: care instructions nbarrows Not available 12/05/2018 09:37:50 high blood pressure: care instructions awychowski Not available 11/17/2018 16:40:11 learning about high blood pressure awychowski Not available 11/17/2018 16:40:11 12/19/2018 [id number] depression treatment: care instructions awychowski Not available 12/19/2018 11:34:58 high blood pressure: care instructions awychowski Not available 12/19/2018 11:34:58 learning about high blood pressure awychowski Not available 12/19/2018 11:34:58 non fasting labs in 4 weeks. awychowski Not available 12/19/2018 11:34:56 01/03/2019 [id number] hypoglycemia: care instructions Not available 01/03/2019 16:07:07 Medications (OTC, herbal therapies, supplements) reviewed and reconciled with patient and or caregiver, including potential side effects, drug interactions, instructions, and the consequences of not taking medication. Reviewed potential barriers to medication adherence, such as side effects from medication or cost of medication. [email or web address] Not available 01/03/2019 14:22:39 Reason for Referral Screw Machine Tender/dietitian Refer ral for Underweight Referring Physician: Glynn Hernández [facility], Encounter Date: 09/19/2018 Diabetic Ophthalmology Refer ral for Diabetic distal sensorimotor polyneuropathy Referring Physician: Glynn Hernández [facility], Encounter Date: 10/20/2018 Soda Fountain Clerk Referral for Anemia for eval of pt with anemia and wt loss Referring Physician: Glynn Hernández [facility], Encounter Date: 10/20/2018 Pain Management Referral for Diabetic distal sensorimotor polyneuropathy for follow up on pt with chronic worsenign neuropathy Referring Physician: Glynn Hernández [facility], Encounter Date: 11/17/2018 Results Created Date Observation Date Name Description Value Unit Range Abnormal Flag Note LastModifiedBy Organization Detail LastModifiedTime 08/22/1908/22/2018 CBC w/ auto diff WBC 8.6 K/mm3 (4.0-1 1.0) Not Available [facility] [address] [place], [address], 08/22/2018 15:48:49 08/22/1908/22/2018 CBC w/ auto diff RBC 3.29 M/mm3 (4.70- 6.10) low Not Available [facility] [address] [place], [address], 08/22/2018 15:48:49 08/22/192019 CBC w/ auto diff HGB 10.7 gm/dL (13.7- 16.5) low Not Available [facility] [address] [place], [address], 08/22/2018 15:48:49 08/22/19 19 08/22/2018 CBC w/ auto diff HCT 33.9 % (40.5- 48.5) low Not Available [facility] [address] [place], [address], 08/22/2018 15:48:49 08/22/19 19 08/22/2018 CBC w/ auto diff MCV 103.0 fL (80.0- 94.0) high Not Available [facility] [address] [place], [address], 08/22/2018 15:48:49 08/22/19 19 08/22/2018 CBC w/ auto diff MCH 32.5 pg (27.0- 34.0) Not Available [facility] [address] [place], [address], 08/22/2018 15:48:49 08/22/1908/22/2018 CBC w/ auto diff MCHC 31.6 g/dL (33.0- 37.0) low Not Available [facility] [address] [place], [address], 08/22/2018 15:48:49 08/22/1908/22/2018 CBC w/ auto diff plt 221 K/mm3 (150-4 60) Not Available [facility] [address] [place], [address], 08/22/2018 15:48:49 08/22/1908/22/2018 CBC w/ auto diff RDW-SD 47.7 fL (<47.0 ) high Not Available [facility] [address] [place], [address], 08/22/2018 15:48:49 08/22/1908/22/2018 CBC w/ auto diff MPV 11.3 fL (9.4-1 2.4) Not Available [facility] [address] [place], [address], 08/22/2018 15:48:49 08/22/19 19 08/22/2018 CBC w/ auto diff automated NRBC 0.0 #/100 _WBC' s Not [facility] [address] [place], [address], 08/22/2018 15:48:49 08/22/19 19 08/22/2018 CBC w/ auto diff abs. NRBC 0.0 K/mm3 Not [facility] [address] [place], [address], 08/22/2018 15:48:49 08/22/1908/22/2018 CBC w/ auto diff neut # 5.7 K/mm3 (1.3-7 .0) Not [facility] [address] [place], [address], 08/22/2018 15:48:49 08/22/1908/22/2018 CBC w/ auto diff lymph # 2.0 K/mm3 (0.8-3 .1) Not [facility] [address] [place], [address], 08/22/2018 15:48:49 08/22/1908/22/2018 CBC w/ auto diff mono# 0.7 K/mm3 (0.4-1 .3) Not [facility] [address] [place], [address], 08/22/2018 15:48:49 08/22/1908/22/2018 CBC w/ auto diff eo # 0.1 K/mm3 (0.0-0 .4) Not [facility] [address] [place], [address], 08/22/2018 15:48:49 08/22/1908/22/2018 CBC w/ auto diff baso # 0.0 K/mm3 (0.0-0 .1) Not [facility] [address] [place], [address], 08/22/2018 15:48:49 08/22/19 19 08/22/2018 CBC w/ auto diff abs. imm gran 0.1 K/mm3 Not Available [facility] [address] [place], [address], 08/22/2018 15:48:49 08/22/1908/22/2018 CBC w/ auto diff neut 66.5 % (44-76 ) Not Available [facility] [address] [place], [address], 08/22/2018 15:48:49 08/22/1908/22/2018 CBC w/ auto diff lymph 23.6 % (15-43 ) Not Available [facility] [address] [place], [address], 08/22/2018 15:48:49 08/22/1908/22/2018 CBC w/ auto diff monocyte 8.0 % (4.5-1 0.5) Not Available [facility] [address] [place], [address], 08/22/2018 15:48:49 08/22/1908/22/2018 CBC w/ auto diff eo 0.8 % (0-6) Not Available [facility] [address] [place], [address], 08/22/2018 15:48:49 08/22/1908/22/2018 CBC w/ auto diff baso 0.5 % (0-2) Not Available [facility] [address] [place], [address], 08/22/2018 15:48:49 08/22/1908/22/2018 CBC w/ auto diff imm gran 0.6 % (0.0-0 .6) Not Available [facility] [address] [place], [address], 08/22/2018 15:48:49 08/22/1912 0808/22/2018 urina lysis , compl ete appear/color YELLO W CLEAR Not Available [facility] [address] [place], [address], 08/22/2018 16:10:56 08/22/19 19 08/22/2018 urina lysis , compl ete sp. gravity 1.025 (1.002 -1.030 ) Not Available [facility] [address] [place], [address], 08/22/2018 16:10:56 08/22/19 19 08/22/2018 urina lysis , compl ete urine pH 6.0 (4.0-8 .0) Not Available [facility] [address] [place], [address], 08/22/2018 16:10:56 08/22/19 19 08/22/2018 urina lysis , compl ete urine albumin 1+ (neg) abnormal Not Available [facility] [address] [place], [address], 08/22/2018 16:10:56 08/22/1908/22/2018 urina lysis , compl ete urine glucose 3+ (neg) abnormal Not Available [facility] [address] [place], [address], 08/22/2018 16:10:56 08/22/1908/22/2018 urina lysis , compl ete urine ketones NEGATI VE (neg) Not Available [facility] [address] [place], [address], 08/22/2018 16:10:56 08/22/1908/22/2018 urina lysis , compl ete urine bilirubin NEGATI VE (neg) Not Available [facility] [address] [place], [address], 08/22/2018 16:10:56 08/22/19 19 08/22/2018 urina lysis , compl ete urine hemoglobn NEGATI VE (neg) Not Available [facility] [address] [place], [address], 08/22/2018 16:10:56 08/22/19 19 08/22/2018 urina lysis , compl ete urine nitrite NEGATI VE (neg) Not Available [facility] [address] [place], [address], 08/22/2018 16:10:56 08/22/19 19 08/22/2018 urina lysis , compl ete urine leukocyte NEGATI VE (neg) Not Available [facility] [address] [place], [address], 08/22/2018 16:10:56 08/22/19 19 08/22/2018 urina lysis , compl ete urobilinogen NORMAL mg/dL (norm) Not Available [facility] [address] [place], [address], 08/22/2018 16:10:56 08/22/19 19 08/22/2018 urina lysis , compl ete urine WBC's 1 /hpf (0-5) Not Available [facility] [address] [place], [address], 08/22/2018 16:10:56 08/22/1908/22/2018 urina lysis , compl ete urine RBC's <1 /hpf (<3) Not Available [facility] [address] [place], [address], 08/22/2018 16:10:56 08/22/19 19 08/22/2018 urina lysis , compl ete bacteria SLIGHT hpf (neg) abnormal Not Available [facility] [address] [place], [address], 08/22/2018 16:10:56 08/22/1908/22/2018 urina lysis , compl ete squamous epith <1 /hpf Not Available [facility] [address] [place], [address], 08/22/2018 16:10:56 08/22/1908/22/2018 urina lysis , compl ete hyaline cast 2 lpf (0-2) Not Available [facility] [address] [place], [address], 08/22/2018 16:10:56 08/22/19 19 08/22/2018 micro album in, urine micro-albumi n <6.0 mg/L (0-20) Not Available [facility] [address] [place], [address], 08/22/2018 17:17:43 08/22/19 19 08/22/2018 micro album in, urine malb/creat ratio <3.6 mg/gm (0-20) Micro album in less than detec tion limit , ratio estim ated using micro album in equal to 6.0 mg/L. Not Available [facility] [address] [place], [address], 08/22/2018 17:17:43 08/22/19 19 08/22/2018 micro album in, urine urine creat for micro albumin 168.2 mg/dL Not Available [facility] [address] [place], [address], 08/22/2018 17:17:43 08/22/19 19 08/22/2018 amyla se, serum or plasm a amylase 59 U/L (28-10 0) Not Available [facility] [address] [place], [address], 08/22/2018 17:48:43 08/22/1908/22/2018 lipas e, serum or plasm a lipase 9 U/L (13-60 ) low Not Available [facility] [address] [place], [address], 08/22/2018 17:48:44 08/22/1908/22/2018 lipid panel , serum cholesterol, total 133 mg/dL (<200) Not Available [facility] [address] [place], [address], 08/22/2018 17:48:45 08/22/19 19 08/22/2018 lipid panel , serum triglyceride 126 mg/dL (<150) Not Available [facility] [address] [place], [address], 08/22/2018 17:48:45 08/22/19 19 08/22/2018 lipid panel , serum HDL chol 79 mg/dL (>39) Not Available [facility] [address] [place], [address], 08/22/2018 17:48:45 08/22/1908/22/2018 lipid panel , serum LDL cholesterol, calculated 29 mg/dL (0-130 ) Not Available [facility] [address] [place], [address], 08/22/2018 17:48:45 08/22/1908/22/2018 lipid panel , serum non HDL cholesterol (calc) 54 mg/dL (<160) Not Available [facility] [address] [place], [address], 08/22/2018 17:48:45 08/22/1908/22/2018 preal bumin , serum prealbumin 22.8 mg/dL (20-40 ) Not Available [facility] [address] [place], [address], 08/22/2018 17:48:46 08/22/1908/22/2018 TSH, serum or plasm a TSH 1.28 mIU/m L (0.40- 4.00) Not Available [facility] [address] [place], [address], 08/22/2018 17:53:49 08/22/1908/22/2018 vitam in B12, serum vitamin B12 916 pg/mL (232-1 245) As of 2017 vitam in B12 assay formu latio n has been modif ied. As a resul t, the new refer ence range is (232- 1245 pg/mL ). Not Available [facility] [address] [place], [address], 08/22/2018 18:00:45 09/19/19 19 09/19/2018 CBC w/ auto diff WBC 7.5 K/mm3 (4.0-1 1.0) Not Available [facility] [address] [place], [address], 09/19/2018 13:47:02 09/19/19 19 09/19/2018 CBC w/ auto diff RBC 3.53 M/mm3 (4.70- 6.10) low Not Available [facility] [address] [place], [address], 09/19/2018 13:47:02 09/19/19 19 09/19/2018 CBC w/ auto diff HGB 11.7 gm/dL (13.7- 16.5) low Not Available [facility] [address] [place], [address], 09/19/2018 13:47:02 09/19/19 19 09/19/2018 CBC w/ auto diff HCT 34.7 % (40.5- 48.5) low Not Available [facility] [address] [place], [address], 09/19/2018 13:47:02 09/19/19 19 09/19/2018 CBC w/ auto diff MCV 98.3 fL (80.0- 94.0) high Not Available [facility] [address] [place], [address], 09/19/2018 13:47:02 09/19/19 19 09/19/2018 CBC w/ auto diff MCH 33.1 pg (27.0- 34.0) Not Available [facility] [address] [place], [address], 09/19/2018 13:47:02 09/19/19 19 09/19/2018 CBC w/ auto diff MCHC 33.7 g/dL (33.0- 37.0) Not Available [facility] [address] [place], [address], 09/19/2018 13:47:02 09/19/19 19 09/19/2018 CBC w/ auto diff plt 250 K/mm3 (150-4 60) Not Available [facility] [address] [place], [address], 09/19/2018 13:47:02 09/19/19 19 09/19/2018 CBC w/ auto diff RDW-SD 46.1 fL (<47.0 ) Not Available [facility] [address] [place], [address], 09/19/2018 13:47:02 09/19/19 19 09/19/2018 CBC w/ auto diff MPV 11.1 fL (9.4-1 2.4) Not Available [facility] [address] [place], [address], 09/19/2018 13:47:02 09/19/19 19 09/19/2018 CBC w/ auto diff automated NRBC 0.0 #/100 _WBC' s Not Available [facility] [address] [place], [address], 09/19/2018 13:47:02 09/19/19 19 09/19/2018 CBC w/ auto diff abs. NRBC 0.0 K/mm3 Not Available [facility] [address] [place], [address], 09/19/2018 13:47:02 09/19/19 19 09/19/2018 PSA, serum or plasm a PSA 1.4 NG/mL (0-4) TEST PERFO RMED USING THE VETO ELECT Presidio MILLU MINES CENCE TOTAL PSA ASSAY . PSA VALUE S OBTAI DARYN WITH OTHER ASSAY METHO DS OR KITS CANNO T BE USED INTER WILL EABLY . Not Available [facility] [address] [place], [address], 09/19/2018 15:15:17 09/19/19 19 09/19/2018 BMP, serum or plasm a glucose 498 mg/dL (70-99 ) high Not Available [facility] [address], [address], 09/19/2018 15:27:39 09/19/19 19 09/19/2018 BMP, serum or plasm a BUN 14 mg/dL (8-23) Not Available [facility] [address] [place], [address], 09/19/2018 15:27:39 09/19/19 19 09/19/2018 BMP, serum or plasm a creatinine 1.6 mg/dL (0.7-1 .2) high Not Available [facility] [address] [place], [address], 09/19/2018 15:27:39 09/19/19 19 09/19/2018 BMP, serum or plasm a sodium 129 mmol/ L (133-1 45) low Not Available [facility] [address] [place], [address], 09/19/2018 15:27:39 09/19/19 19 09/19/2018 BMP, serum or plasm a potassium 4.0 mmol/ L (3.6-5 .2) Not Available [facility] [address] [place], [address], 09/19/2018 15:27:39 09/19/19 19 09/19/2018 BMP, serum or plasm a chloride 86 mmol/ L (98-10 7) low Not Available [facility] [address] [place], [address], 09/19/2018 15:27:39 09/19/1909/19/2018 BMP, serum or plasm a bicarbonate 29 mmol/ L (22-29 ) Not Available [facility] [address] [place], [address], 09/19/2018 15:27:39 09/19/19 19 09/19/2018 BMP, serum or plasm a anion gap 14 (4-17) Not Available [facility] [address] [place], [address], 09/19/2018 15:27:39 09/19/19 19 09/19/2018 BMP, serum or plasm a calcium 9.4 mg/dL (8.6-1 0.5) Not Available [facility] [address] [place], [address], 09/19/2018 15:27:39 09/19/1909/19/2018 BMP, serum or plasm [...] Available [facility] [address] [place], [address], 09/19/2018 15:27:39 09/19/1909/19/2018 BMP, serum or plasm [...] Available [facility] [address] [place], [address], 09/19/2018 15:27:39 09/19/1909/19/2018 iron + total iron- alaina ng capac ity (TIBC ), serum iron 149 mcg/d L (45-16 0) Not Available [facility] [address] [place], [address], 09/19/2018 16:15:02 09/19/19 19 09/19/2018 iron + total iron- alaina ng capac ity (TIBC ), serum unsaturated iron binding capac 78 mcg/d L (110-3 70) low Not Available [facility] [address] [place], [address], 09/19/2018 16:15:02 09/19/19 19 09/19/2018 iron + total iron- alaina ng capac ity (TIBC ), serum est T. iron bind capacity 227 mcg/d L (155-5 30) Not Available [facility] [address] [place], [address], 09/19/2018 16:15:02 09/19/19 19 09/19/2018 iron + total iron- alaina ng capac ity (TIBC ), serum % iron saturation 66 % (20-55 ) high Not Available [facility] [address] [place], [address], 09/19/2018 16:15:02 10/21/19 19 10/20/2018 activ ated parti al throm bopla stin time, coagu latio n assay , blood APTT 26.5 sec (24.3- 33.1) Not Available [facility] [address] [place], [address], 10/20/2018 19:34:47 10/21/19 19 10/20/2018 CBC w/ auto diff WBC 6.9 K/mm3 (4.0-1 1.0) Not Available [facility] [address] [place], [address], 10/20/2018 19:39:56 10/21/19 19 10/20/2018 CBC w/ auto diff RBC 2.95 M/mm3 (4.70- 6.10) low Not Available [facility] [address] [place], [address], 10/20/2018 19:39:56 10/21/19 19 10/20/2018 CBC w/ auto diff HGB 9.9 gm/dL (13.7- 16.5) low Not Available [facility] [address] [place], [address], 10/20/2018 19:39:56 10/21/19 19 10/20/2018 CBC w/ auto diff HCT 31.8 % (40.5- 48.5) low Not Available [facility] [address] [place], [address], 10/20/2018 19:39:56 10/21/19 19 10/20/2018 CBC w/ auto diff MCV 107.8 fL (80.0- 94.0) high Not Available [facility] [address] [place], [address], 10/20/2018 19:39:56 10/21/19 19 10/20/2018 CBC w/ auto diff MCH 33.6 pg (27.0- 34.0) Not Available [facility] [address] [place], [address], 10/20/2018 19:39:56 10/21/19 19 10/20/2018 CBC w/ auto diff MCHC 31.1 g/dL (33.0- 37.0) low Not Available [facility] [address] [place], [address], 10/20/2018 19:39:56 10/21/19 19 10/20/2018 CBC w/ auto diff plt 213 K/mm3 (150-4 60) Not Available [facility] [address] [place], [address], 10/20/2018 19:39:56 10/21/19 19 10/20/2018 CBC w/ auto diff RDW-SD 56.2 fL (<47.0 ) high Not Available [facility] [address] [place], [address], 10/20/2018 19:39:56 10/21/19 19 10/20/2018 CBC w/ auto diff MPV 10.6 fL (9.4-1 2.4) Not Available [facility] [address] [place], [address], 10/20/2018 19:39:56 10/21/19 19 10/20/2018 CBC w/ auto diff automated NRBC 0.0 #/100 _WBC' s Not Available [facility] [address] [place], [address], 10/20/2018 19:39:56 10/21/19 19 10/20/2018 CBC w/ auto diff abs. NRBC 0.0 K/mm3 Not Available [facility] [address] [place], [address], 10/20/2018 19:39:56 10/21/19 19 10/20/2018 PT/IN R protime 10.5 sec (9.7-1 2.2) Not Available [facility] [address] [place], [address], 10/20/2018 19:44:19 10/21/19 19 10/20/2018 PT/IN R [...] S. Not Available [facility] [address] [place], [address], 10/20/2018 19:44:19 10/21/19 19 10/20/2018 CMP, serum or plasm a glucose 267 mg/dL (70-99 ) high Not Available [facility] [address] [place], [address], 10/20/2018 19:58:54 10/21/19 19 10/20/2018 CMP, serum or plasm a BUN 13 mg/dL (8-23) Not Available [facility] [address] [place], [address], 10/20/2018 19:58:54 10/21/19 19 10/20/2018 CMP, serum or plasm a creatinine 1.4 mg/dL (0.7-1 .2) high Not Available [facility] [address] [place], [address], 10/20/2018 19:58:54 10/21/19 19 10/20/2018 CMP, serum or plasm a sodium 138 mmol/ L (133-1 45) Not Available [facility] [address] [place], [address], 10/20/2018 19:58:54 10/21/19 19 10/20/2018 CMP, serum or plasm a potassium 5.3 mmol/ L (3.6-5 .2) high Not Available [facility] [address] [place], [address], 10/20/2018 19:58:54 10/21/19 19 10/20/2018 CMP, serum or plasm a chloride 104 mmol/ L (98-10 7) Not Available [facility] [address] [place], [address], 10/20/2018 19:58:54 10/21/1910/20/2018 CMP, serum or plasm a bicarbonate 25 mmol/ L (22-29 ) Not Available [facility] [address] [place], [address], 10/20/2018 19:58:54 10/21/1910/20/2018 CMP, serum or plasm a anion gap 9 (4-17) Not Available [facility] [address] [place], [address], 10/20/2018 19:58:54 10/21/1910/20/2018 CMP, serum or plasm a albumin 3.7 gm/dL (3.4-4 .8) Not Available [facility] [facility] [address] [place], [address], 10/20/2018 19:58:54 10/21/19 19 10/20/2018 CMP, serum or plasm a calcium 8.7 mg/dL (8.6-1 0.5) Not Available [facility] [address] [place], [address], 10/20/2018 19:58:54 10/21/19 19 10/20/2018 CMP, serum or plasm a bilirubin,to srinivas 0.2 mg/dL (0-1.2 ) Not Available [facility] [address] [place], [address], 10/20/2018 19:58:54 10/21/19 19 10/20/2018 CMP, serum or plasm a total protein 6.1 gm/dL (6.2-8 .2) low Not Available [facility] [address] Aidan[address]aysh[address] [place], [address], 10/20/2018 19:58:54 10/21/19 19 10/20/2018 CMP, serum or plasm a Ag ratio 1.5 Not Available [facility] [address] [place], [address], 10/20/2018 19:58:54 10/21/1910/20/2018 CMP, serum or plasm a AST 27 U/L (0-38) Not Available [facility] [address] [place], [address], 10/20/2018 19:58:54 10/21/1910/20/2018 CMP, serum or plasm a alk phos 59 U/L (40-12 9) Not Available [facility] [address] Yolanda [place], [address], 10/20/2018 19:58:54 10/21/1910/20/2018 CMP, serum or plasm a ALT 27 U/L (0-41) Not Available [facility] [address] [place], [address], 10/20/2018 19:58:54 10/21/19 19 10/20/2018 CMP, serum [...] [facility] [address], [place], [address], 10/20/2018 19:58:54 10/21/1910/20/2018 CMP, serum or plasm [...] [facility] [address], [place], [address], 10/20/2018 19:58:54 10/21/1910/20/2018 ESR (eryt hrocy te [...] patie nts. Not Available [facility] [address], [place], [address], 10/20/2018 20:12:23 10/21/19 19 10/20/2018 HbA1c (hemo [...] Available [facility] [address] [place], [address], 10/20/2018 22:55:14 11/24/19 19 11/23/2018 CBC w/ [...] 11/24/19 19 11/23/2018 CBC w/ auto diff plt 195 Not Available Not Availa ble 12/25/2018 15:55:47 01/04/20 19 01/03/2019 urina lysis , compl ete appear/color YELLO W CLEAR Not Available [facility] [address] [place], [address], 01/03/2019 18:33:34 01/04/20 19 01/03/2019 urina lysis , compl ete sp. gravity 1.018 (1.002 -1.030 ) Not Available [facility] [address] [place], [address], 01/03/2019 18:33:34 01/04/20 19 01/03/2019 urina lysis , compl ete urine pH 5.0 (5.0-8 .0) Not Available [facility] [address] [place], [address], 01/03/2019 18:33:34 01/04/20 19 01/03/2019 urina lysis , compl ete urine albumin 1+ (neg) abnormal Not Available [facility] [address] [place], [address], 01/03/2019 18:33:34 01/04/20 19 01/03/2019 urina lysis , compl ete urine glucose 2+ (neg) abnormal Not Available [facility] [address] [place], [address], 01/03/2019 18:33:34 01/04/20 19 01/03/2019 urina lysis , compl ete urine ketones NEGATI VE (neg) Not Available [facility] [address] [place], [address], 01/03/2019 18:33:34 01/04/20 19 01/03/2019 urina lysis , compl ete urine bilirubin NEGATI VE (neg) Not Available [facility] [address] Yolanda [place], [address], 01/03/2019 18:33:34 01/04/2001/03/2019 urina lysis , compl ete urine hemoglobin NEGATI VE (neg) Not Available [facility] [address] [place], [address], 01/03/2019 18:33:34 01/04/20 19 01/03/2019 urina lysis , compl ete urine nitrite NEGATI VE (neg) Not Available [facility] [address] [place], [address], 01/03/2019 18:33:34 01/04/20 19 01/03/2019 urina lysis , compl ete urine leukocyte NEGATI VE (neg) Not Available [facility] [address] [place], [address], 01/03/2019 18:33:34 01/04/20 19 01/03/2019 urina lysis , compl ete urobilinogen NORMAL mg/dL (norm) Not Available [facility] [address] [place], [address], 01/03/2019 18:33:34 01/04/20 19 01/03/2019 urina lysis , compl ete urine WBC's 1 /hpf (0-5) Not Available [facility] [address] [place], [address], 01/03/2019 18:33:34 01/04/20 19 01/03/2019 urina lysis , compl ete urine RBC's 2 /hpf (<3) Not Available [facility] [address] [place], [address], 01/03/2019 18:33:34 01/04/20 19 01/03/2019 urina lysis , compl ete mucus SLIGHT /lpf Not Available [facility] [address] [place], [address], 01/03/2019 18:33:34 01/04/2001/03/2019 CMP, serum or plasm a glucose 134 mg/dL (70-99 ) high Not Available [facility] [address] [place], [address], 01/03/2019 18:48:40 01/04/2001/03/2019 CMP, serum or plasm a BUN 20 mg/dL (8-23) Not Available [facility] [address] [place], [address], 01/03/2019 18:48:40 01/04/2001/03/2019 CMP, serum or plasm a creatinine 1.5 mg/dL (0.7-1 .2) high Not Available [facility] [address] [place], [address], 01/03/2019 18:48:40 01/04/20 19 01/03/2019 CMP, serum or plasm a sodium 140 mmol/ L (133-1 45) Not Available [facility] [address] [place], [address], 01/03/2019 18:48:40 01/04/2001/03/2019 CMP, serum or plasm a potassium 5.1 mmol/ L (3.6-5 .2) Not Available [facility] [address] [place], [address], 01/03/2019 18:48:40 01/04/2001/03/2019 CMP, serum or plasm a chloride 108 mmol/ L (98-10 7) high Not Available [facility] [address] [place], [address], 01/03/2019 18:48:40 01/04/2001/03/2019 CMP, serum or plasm a bicarbonate 26 mmol/ L (22-29 ) Not Available [facility] [address] [place], [address], 01/03/2019 18:48:40 01/04/2001/03/2019 CMP, serum or plasm a anion gap 6 (4-17) Not Available [facility] [address] [place], [address], 01/03/2019 18:48:40 01/04/2001/03/2019 CMP, serum or plasm a albumin 4.0 gm/dL (3.4-4 .8) Not Available [facility] [address], [address], 01/03/2019 18:48:40 01/04/2001/03/2019 CMP, serum or plasm a calcium 9.0 mg/dL (8.6-1 0.5) Not Available [facility] [address], [address], 01/03/2019 18:48:40 01/04/2001/03/2019 CMP, serum or plasm a bilirubin,to srinivas 0.2 mg/dL (0-1.2 ) Not Available [facility] [address] [place], [address], 01/03/2019 18:48:40 01/04/20 19 01/03/2019 CMP, serum or plasm a total protein 6.3 gm/dL (6.2-8 .2) Not Available [facility] [address] [place], [address], 01/03/2019 18:48:40 01/04/20 19 01/03/2019 CMP, serum or plasm a Ag ratio 1.7 Not Available [facility] [address] [place], [address], 01/03/2019 18:48:40 01/04/20 19 01/03/2019 CMP, serum or plasm a AST 28 U/L (0-38) Not Available [facility] [address] [place], [address], 01/03/2019 18:48:40 01/04/20 19 01/03/2019 CMP, serum or plasm a alk phos 75 U/L (40-12 9) Not Available [facility] [address] [place], [address], 01/03/2019 18:48:40 01/04/20 19 01/03/2019 CMP, serum or plasm a ALT 23 U/L (0-41) Not Available [facility] [address] [place], [address], 01/03/2019 18:48:40 01/04/20 19 01/03/2019 CMP, serum [...] Available [facility] [address] [place], [address], 01/03/2019 18:48:40 01/04/20 19 01/03/2019 CMP, serum [...] Available [facility] [address] [place], [address], 01/03/2019 18:48:40 01/04/20 19 01/03/2019 CBC w/ auto diff WBC 6.6 K/mm3 (4.0-1 1.0) Not Available [facility] [address] [place], [address], 01/03/2019 18:49:41 01/04/20 19 01/03/2019 CBC w/ auto diff RBC 3.56 M/mm3 (4.70- 6.10) low Not Available [facility] [address] [place], [address], 01/03/2019 18:49:41 01/04/20 19 01/03/2019 CBC w/ auto diff HGB 11.8 gm/dL (13.7- 17.1) low Not Available [facility] [address] [place], [address], 01/03/2019 18:49:41 01/04/20 19 01/03/2019 CBC w/ auto diff HCT 36.2 % (40.5- 50.0) low Not Available [facility] [address] [place], [address], 01/03/2019 18:49:41 01/04/20 19 01/03/2019 CBC w/ auto diff MCV 101.7 fL (80.0- 94.0) high Not Available [facility] [address] [place], [address], 01/03/2019 18:49:41 01/04/2001/03/2019 CBC w/ auto diff MCH 33.1 pg (27.0- 34.0) Not Available [facility] [address] [place], [address], 01/03/2019 18:49:41 01/04/2001/03/2019 CBC w/ auto diff MCHC 32.6 g/dL (33.0- 37.0) low Not Available [facility] [address] [place], [address], 01/03/2019 18:49:41 01/04/2001/03/2019 CBC w/ auto diff plt 168 K/mm3 (150-4 60) Not Available [facility] [address] [place], [address], 01/03/2019 18:49:41 01/04/2001/03/2019 CBC w/ auto diff RDW-SD 45.4 fL (<47.0 ) Not Available [facility] [address] [place], [address], 01/03/2019 18:49:41 01/04/2001/03/2019 CBC w/ auto diff MPV 10.8 fL (9.4-1 2.4) Not Available [facility] [address] [place], [address], 01/03/2019 18:49:41 01/04/2001/03/2019 CBC w/ auto diff automated NRBC 0.0 #/100 _WBC' s Not Available [facility] [address] [place], [address], 01/03/2019 18:49:41 01/04/20 19 01/03/2019 CBC w/ auto diff abs. NRBC 0.0 K/mm3 Not Available [facility] [address] [place], [address], 01/03/2019 18:49:41 01/04/20 19 01/03/2019 HbA1c (hemo [...] ase in Hb A1c (%). [facility] Available [facility] [address] [place], [address], 01/03/2019 22:21:36 01/04/20 19 01/03/2019 HbA1c (hemo [...] ase in Hb A1c (%). [facility] [address] [place], [address], 01/03/2019 22:21:53 01/04/2001/03/2019 hemog lobin A1C, finge rstic k HbA1c 6.7% Not Available In-Office Order Internal Use Only DO Not Attach Compendium DO Not Attach Compendium, Do Not Delete/merge, [id number] 01/03/2019 14:43:15 09/08/19 19 09/08/2018 XR, chest [...] I agree with this report . WSN: [id number] Dictat ed By: Sherwin Malcolm MD Dictat ed Date/T gerri: 11:08 a Review ed By: Nohemy CONKLIN, Henry Kiran Signed By: Henry Slater MD Signed Date/T gerri: 11:13 am Transc ribed By: ANNY Transc ribed Date/T gerri: 10:39 am Patien t Class: Outpat ient [facility] (Outpt Imaging) [address] [place], [address], 09/19/2018 10:45:52 09/14/19 19 09/14/2018 US, abdom [...] Normal . Other: No free fluid. IMPRES KALI: 1. Mildly echoge jamin liver likely repres enting hepati c steato sis. 2. Obscur ed pancre as. 3. Slight ectasi a of the mid abdomi nal aorta measur ing 1.8 cm. WSN: [id number] Dictat ed By: Vy Duque MD Dictat ed Date/T gerri: 9:01 am Review ed By: Vy Duque MD Signed By: Vy Duque MD Signed Date/T gerri: 9:01 am Transc ribed By: CSB Transc ribed Date/T gerri: 8:58 am Patien t Class: Outpat ient [facility] (Outpt Imaging) [address], [place], [address], 09/19/2018 10:45:52 09/30/19 19 09/27/2018 regad enoso n stres s test (PROC ) No observ ation record ed. [facility] Diagnostic Testing [address], [place], [address], 10/20/2018 14:22:03 11/09/19 19 11/08/2018 CT, chest [...] at the head of pancre as. WSN: [id number] Dictat ed By: Elise Srinivasan MD Dictat ed Date/T gerri: 3:47 pm Review ed By: Elise Srinivasan MD Signed By: Elise Srinivasan MD Signed Date/T gerri: 3:47 pm Transc ribed By: ANNY Transc ribed Date/T gerri: 3:29 pm Patien t Class: Outpat ient [facility] (Outpt Imaging) [address] [place], [address], 11/17/2018 16:12:28 12/14/19 20 12/11/2019 trans -thor acic echoc ardio gram (TTE) (PROC ) No observ ation record ed. [facility] [address] [facility], [place], [address], 12/17/2019 22:16:50 Result Notes None recorded. Problems Name Problem SNOMED Code Status Onset Date Resolution Date Notes Provider Name and Address Organization Details Recorded Time Abdomina l pain 33636503 Completed 201203/04/2014 IMPRESSI ON: HAS RISK FACTORS FOR GASTRITI S. WILL START PPI EMPIRICA LLY WHILE WAITING FOR GI F/U.; RECORDED 04/10/20 13 3:36PM BY LAKSHMI STEARNS MA, ANNOTATI ON/ADDEN DUM Glynn Hernández MD [address] [facility] [address], [place], [address] , [facility] 6 10:12:45 Tobacco user [id number] Completed 201203/04/2014 RECORDED 09/07/19 13 2:45PM BY SHERYL PAREDES MA, ANNOTATI ON/ADDEN DUM Glynn Hernández MD [address] [facility], [place], [address] , [facility] 6 10:12:45 Cough [id number] Completed 201103/04/2014 IMPRESSI ON: SYMPTOMS PRESENT JUST UNDER 1 WEEK. WILL TREAT SYMPTOMA TICALLY AND COVER FOR BACTERIA L SOURCE IF PERSISTA NT.; RECORDED 06/28/20 12 3:37PM BY SHERYL PAREDES MA, ANNOTATI ON/ADDEN DUM Glynn Hernández MD [address] [facility][[address]] [address], [place], [address] , [facility] 6 10:12:45 Type 2 diabetes mellitus without complica tion [id number] Completed 201303/04/2014 RECORDED 08/10/19 14 11:00AM BY ELEAZAR OAKES MA, ANNOTATI ON/ADDEN RENATO Hernández MD [address] [facility], [place], [address] , [facility] 6 10:12:45 Follow-u p encounte r Completed 201203/04/2014 RECORDED 03/16/20 13 11:54AM BY ELEAZAR OAKES MA, CATRACHITOATI ON/CORDELL Hernández MD [address] [facility], [place], [address] , [facility] 6 10:12:45 Influenz a vaccine needed [id number] 06 Completed 201203/04/2014 RECORDED 04/06/20 13 1:37PM BY LAKSHMI STEARNS MA, OFFICE VISIT Glynn Hernández MD [address] [facility], [place], [address] , [facility] 6 10:12:45 Adult health examinat ion Completed 201203/04/2014 IMPRESSI ON: WILL UPDATE IMMUNIZA TION STATUS AND SCREEN BASED ON RISK FACTORS. REGULAR DENTAL CARE AND SEATBELT USE ADVISED. DISTRACT ED DRIVING DISCUSSNora Suárez. COLON CANCER SCREENIG N UTD. PROSTATE CANCER SCREENIN G TAILORED BASED ON RISK FACTORS. ; RECORDED 04/10/20 13 3:36PM BY LAKSHMI STEARNS MA, CATRACHITOATI ON/CORDELL Hernández MD [address], [place], [address] , [facility] 6 10:12:45 Laborato ry procedur e performe d 063312738 Completed 201303/04/2014 RECORDED 08/10/19 14 10:59AM BY ELEAZAR OAKES MA, CATRACHITOATI ON/CORDELL Hernández MD [address] [facility] [address], [place], [address] , [facility] 6 10:12:45 Shoulder joint pain 564512739 Completed 201103/04/2014 IMPRESSI ON: PERSISTA NT DESPITE CONSERVA TICVE THERAPY. WILL SEE WHAT ORTHO THINKS.; RECORDED 06/28/20 12 3:37PM BY SHERYL PAREDES MA, ANNOTATI ON/CORDELL Hernández MD [address] [facility], [place], [address] , [facility] 6 10:12:45 Lipoma 14680555 Completed 201303/04/2014 IMPRESSI ON: MOST LIKELY DIAGNOSI S. REASSURA NCE PROVIDED . IF CHANGES OR BECOMES UNCOMFOR TABLE WILL EVALUATE FURTHER. ; RECORDED 10/12/19 14 12:56PM BY LAKSHMI STEARNS MA, ANNOTATI ON/CORDELL Hernández MD [address] [facility] [address], [place], [address] , [facility] 6 10:12:45 Renewal of prescrip tion Completed 201303/04/2014 RECORDED 11/16/19 14 1:29PM BY LAKSHMI STEARNS MA, ANNOTATI ON/ADD DUM Glynn Hernández MD [address] [facility], [place], [address] , [facility] 6 10:12:45 Mononeur itis of lower limb Completed 201303/04/2014 RECORDED 08/10/19 14 11:00AM BY ELEAZAR OAKES MA, ANNOTATI ON/ADD DUM Glynn Hernández MD [address] [facility], [place], [address] , [facility] 6 10:12:45 Pleural effusion 00134409 Completed 201303/04/2014 IMPRESSI ON: WORSE SINCE IN THE HOSPITAL 2 WEEKS AGO. GAVE HIM CHOICE OF ER OR SEEING PULMONAR Y DR NEXT WEEK. HE WOULD LIKE TO WAIT. HE WILL GO TO ER IF ANY FEVERS, ANY WORSENIN G PAIN.; RECORDED 11/16/19 14 2:08PM BY GLYNN Macias MD, ANNOTATI ON/ Glynn Hernández MD [address] [facility], [place], [address] , [facility] 6 10:12:45 Pneumoni a [id number] Completed 201303/04/2014 IMPRESSI ON: RADIOLOG IST READ STATES THERE MAY STILL BE CONSOLID ATION IN LUNG. PULMONAR Y TO REASSESS NEXT WEEK; RECORDED 01/10/20 14 5:46PM BY GLYNN Macias MD, ANNOTATI ON/ADD DUM Glynn Hernández MD [address] [facility]] [address], [place], [address] , [facility] 6 10:12:45 Abdomina l pain 86514982 Completed 201202/05/2014 IMPRESSI ON: HAS RISK FACTORS FOR GASTRITI S. 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 75849859 Completed 05/30/2017 Glynn Hernández MD [address] [facility], [place], [address] , [facility] 7 11:34:19 Tobacco user [id number] Completed 201202/05/2014 RECORDED 09/07/19 13 2:45PM BY SHERYL PAREDES MA, ANNOTATI ON/ADDEN DUM Glynn Hernández MD [address] [facility]] [address], [place], [address] , [facility] 6 10:12:45 History of clinical finding in subject 816948773 Completed 201203/08/2014 RECORDED 09/07/19 13 2:45PM BY SHERYL PAREDES MA, ANNOTSARAN ON/ADDEN DUM Glynn Hernández MD [address] [facility]] [address], [place], [address] , [facility] 6 10:12:45 Coronary atherosc lerosis 393020042 Active Not Available [facility] 0 18:23:47 Cough 56712809 Completed 201102/05/2014 IMPRESSI ON: SYMPTOMS PRESENT JUST UNDER 1 WEEK. WILL TREAT SYMPTOMA TICALLY AND COVER FOR BACTERIA L SOURCE IF PERSISTA NT.; RECORDED 06/28/20 12 3:37PM BY SHERYL PAREDES MA, ANNOTATI ON/ADDEN DUM Glynn Hernández MD [address] [facility], [place], [address] , [facility] 6 10:12:45 Type 2 diabetes mellitus without complica tion 823762423 Completed 201302/05/2014 RECORDED 08/10/19 14 11:00AM BY ELEAZAR OAKES MA, CATRACHITOATI ON/ADDEN DUM Glynn Hernández MD [address] [facility]] [address], [place], [address] , [facility] 6 10:12:45 Uncontro lled type 2 diabetes mellitus 481947188 Completed 12/23/2016 STORY: DOMINGO BURROWS RN [phone] /ANA PAULA Hernández MD [address] [facility]] [address], [place], [address] , [facility] 7 12:06:51 Uncontro lled type 2 diabetes mellitus 773143630 Completed 201302/05/2014 IMPRESSI ON: BASED ON HOME MEASUREM ENTS CONTROL IS INADEQUA TE. WILL MAXIMIZE METFORMI N DOSE AND RECHECK LABS.; RECORDED 11/16/19 14 1:29PM BY LAKSHMI STEARNS MA, SAMMY ON/CORDELL Hernández MD [address] [facility], [place], [address] , [facility] 7 12:06:51 Follow-u p encounte r Completed 201202/05/2014 RECORDED 03/16/20 13 11:54AM BY ELEAZAR OAKES MA, SAMMY ON/ADDEN DUM Glynn Hernández MD [address] [facility]] [address], [place], [address] , [facility] 6 10:12:45 Essentia l hyperten kali 32761859 Active Not Available [facility] 0 18:23:47 Influenz a vaccine needed [id number] 06 Completed 201202/05/2014 RECORDED 04/06/20 13 1:37PM BY LAKSHMI STEARNS MA, OFFICE VISIT Glynn Hernández MD [address] [facility], [place], [address] , [facility] 6 10:12:45 Adult health examinat ion Completed 201202/05/2014 IMPRESSI ON: WILL UPDATE IMMUNIZA TION STATUS AND SCREEN BASED ON RISK FACTORS. REGULAR DENTAL CARE AND SEATBELT USE ADVISED. DISTRACT ED DRIVING DISCUSSE D. COLON CANCER SCREENIG N UTD. PROSTATE CANCER SCREENIN G TAILORED BASED ON RISK FACTORS. ; RECORDED 04/10/20 13 3:36PM BY LAKSHMI STEARNS MA, ANNOTATI ON/CORDELL Hernández MD [address] [facility], [place], [address] , [facility] 6 10:12:45 Gastroes ophageal reflux disease 785141076 Active Not Available [facility] 0 18:23:47 Pure hypercho lesterol emia 491910069 Active Not Available [facility] 0 18:23:47 Essentia l hyperten kali 38105530 Completed 201202/05/2014 RECORDED 08/07/19 13 2:35PM BY SHERYL PAREDES MA, CATRACHITOATI ON/CORDELL Hernández MD [address] [facility], [place], [address] , [facility] 6 10:12:45 Laborato ry procedur e performe d 037251757 Completed 201302/05/2014 RECORDED 08/10/19 14 10:59AM BY ELEAZAR OAKES MA, SAMMY ON/CORDELL Hernández MD [address] [facility], [place], [address] , [facility] 6 10:12:45 Shoulder joint pain 592448456 Completed 201102/05/2014 IMPRESSI ON: PERSISTA NT DESPITE CONSERVA TICVE THERAPY. WILL SEE WHAT ORTHO THINKS.; RECORDED 06/28/20 12 3:37PM BY SHERYL PAREDES MA, SAMMY ON/CORDELL Hernández MD [address] [facility], [place], [address] , [facility] 6 10:12:45 Lipoma 26771965 Completed 201302/05/2014 IMPRESSI ON: MOST LIKELY DIAGNOSI S. REASSURA NCE PROVIDED . IF CHANGES OR BECOMES UNCOMFOR TABLE WILL EVALUATE FURTHER. ; RECORDED 10/12/19 14 12:56PM BY LAKSHMI STEARNS MA, SAMMY ON/CORDELL Hernández MD [address] [facility], [place], [address] , [facility] 6 10:12:45 Renewal of prescrip tion Completed 201302/05/2014 RECORDED 11/16/19 14 1:29PM BY LAKSHMI STEARNS MA, CATRACHITOATI ON/CORDELL Hernández MD [address] [facility] [address], [place], [address] , [facility] 6 10:12:45 Mononeur itis 52825575 Active Not Available [facility] 0 18:23:47 Mononeur itis of lower limb Completed 201302/05/2014 RECORDED 08/10/19 14 11:00AM BY ELEAZAR OAKES MA, SAMMY ON/CORDELL Hernández MD [address] [facility], [place], [address] , [facility] 6 10:12:45 Old myocardi al infarcti on 0153423 Active 2000 IMI/EF 47% 5 nuc stress/ STORY: NAVARRO Not Available [facility] 0 18:23:47 Chronic pancreat itis 769896818 Active Not Available [facility] 0 18:23:47 Pleural effusion 10833697 Completed 201302/05/2014 IMPRESSI ON: WORSE SINCE IN THE HOSPITAL 2 WEEKS AGO. GAVE HIM CHOICE OF ER OR SEEING PULMONAR Y DR NEXT WEEK. HE WOULD LIKE TO WAIT. HE WILL GO TO ER IF ANY FEVERS, ANY WORSENIN G PAIN.; RECORDED 11/16/19 14 2:08PM BY GLYNN Macias MD, ANNOTATI ON/ADDEN DUM Glynn Hernández MD [address], [place], [address] , [facility] 6 10:12:45 Pneumoni a 692064002 Completed 201303/08/2014 IMPRESSI ON: RADIOLOG IST READ STATES THERE MAY STILL BE CONSOLID ATION IN LUNG. PULMONAR Y TO REASSESS NEXT WEEK; RECORDED 11/16/19 14 1:34PM BY LAKSHMI STEARNS MA, OFFICE VISIT Glynn Hernández MD [address], [place], [address] , [facility] 6 10:12:45 Neuropat hy due to diabetes mellitus [id number] Active Not Available [facility] 0 18:23:47 Body mass index 25-29 - overweig ht [id number] Completed 05/30/2017 Glynn Hernández MD [address], [place], [address] , [facility] 7 11:32:22 Type 2 diabetes mellitus [id number] Completed 12/05/2018 Removal Reason: not specific Mely xie, [facility] 9 09:38:09 Mitral valve regurgit ation [id number] Active Not Available [facility] 0 18:23:47 Multiple joint pain [id number] Active Not Available [facility] 0 18:23:48 Well controll ed type 2 diabetes mellitus [id number] Completed 01/03/2019 Soledad Peck PA-C [address], [place], [address] , [facility] 9 14:34:20 Shoulder pain [id number] Completed 10/20/2018 Glynn Hernández MD [address], [place], [address] , [facility] 9 14:39:07 Christine talavera Completed 05/30/2017 Glynn Hernández MD [address], [place], [address] , [facility] 7 11:32:31 Serum creatini ne above referenc e range [id number] Active Not Available [facility] 0 18:23:47 Diabetic distal sensorim otor polyneur opathy Active Not Available [facility] 0 18:23:47 Knee pain Active Not Available [facility] 0 18:23:47 Hyperkal emia [id number] Completed 11/19/2016 Glynn Hernández MD [address], [place], [address] , [facility] 7 08:25:48 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 073068556 Active Not Available [facility] 0 18:23:47 Chronic kidney disease stage 3 089358426 Active 2016 Not Available [facility] 0 18:23:47 Bilatera l tinnitus 06105544814 02 Active 2017 Not Available [facility] 0 18:23:47 Sensorin eural hearing loss 80166110 Active 2017 Not Available [facility] 0 18:23:47 Albuminu charlie 843541632 Active 2018 Not Available [facility] 0 18:23:47 Dilatati on of aorta 18281257 Active 2018 1.8 cm abdomina l Not Available [facility] 0 18:23:47 Steatosi s of liver 851786891 Active 2018 Not Available [facility] 0 18:23:47 Recurren t major depressi on 34142931 Active 2018 Not Available [facility] 0 18:23:47 Renal disorder due to type 2 diabetes mellitus 117362635 Active 2018 Not Available [facility] 0 18:23:48 Narrow angle of anterior chamber of left eye 75320961249 132307 Active 2018 Not Available [facility] 0 18:23:47 Nuclear cataract 93111245 Active 2018 Not Available [facility] 0 18:23:48 Aortic root dilatati on 417574539 Active 2019 Not Available [facility] 0 18:23:47 Noncompl iance with medicati on regimen 702979282 Active 2020 Glynn Hernández MD [address] [address], [place], [address] , [facility] 1 22:01:23 Notes:Some problems listed i n Documents: #[id number], #[id number], #[id number], #[id number], #[id number], #[id number], #[id number], #[id number] could not be added to this patient's chart. Please review these documents and add these problems to the patient's chart manually as needed. Problem Notes None recorded. Procedures Surgical History Date Name Laterality Status Provider Name and Address Organization Details Recorded Time 12/11/19 20 Echo transthoracic completed Glynn Hernández MD [address], [address], [facility] 12/17/2019 22:15:25 01/16/20 19 iridotomy completed Glynn Hernández MD [address], [address], [facility] 01/31/2019 10:16:14 01/04/20 19 Diabetic Foot Exam (Monofilament) completed Margaret Coe [facility] 01/03/2019 14:22:39 10/31/19 19 angiography of coronary artery completed Glynn Hernández MD [address], [address], [facility] 11/17/2018 16:23:33 09/28/19 19 radionuclide imaging of perfusion of myocardium under exercise stress completed Glynn Hernández MD [address] [address], [place], [address], [facility] 10/02/2018 14:15:32 10/16/19 17 Colonoscopy completed Lakshmi Stearns [facility] 11/18/2016 11:20:22 03/11/20 16 Stress Test completed Glynn Hernández MD [address] [facility] [address] [facility], [place], [address], [facility] 03/21/2016 10:16:26 11/05/19 15 Echo Transthoracic completed Glynn Hernández MD [address] [address], [place], [address], [facility] 11/07/2014 17:34:46 09/25/19 15 CABG completed Glynn Hernández MD [address] [facility] [address] [facility], [place], [address], [facility] 09/29/2014 12:48:27 01/23/20 12 Imaging, cardiac cath completed Glynn Hernández MD [address] [address], [place], [address], [facility] 09/17/2014 09:24:50 01/23/20 12 Cardiac Surgery completed Glynn Hernández MD [address], [address], [facility] 10/20/2018 14:20:26 06/24/20 06 Colonoscopy completed Lakshmi Stearns MA [facility] 06/13/2014 11:12:06 01/23/20 01 Cardiac Surgery completed Lakshmi Stearns MA [facility] 02/24/2016 13:01:28 Tonsillectomy completed Lakshmi Stearns MA [facility] 02/24/2016 13:01:28 Orthopedic Surgery completed Lakshmi Stearns MA [facility] 02/24/2016 13:01:28 Imaging Results Imaging Date Name Status LastModified by Organization Details LastModified Time 09/08/2018 XR, chest, 2 view completed [facility] [address] [place], [address], 09/19/2018 10:45:52 09/14/2018 US, abdomen, complete completed [facility] ([facility]) [address] [place], [address], 09/19/2018 10:45:52 09/27/2018 regadenoson stress test (PROC) completed [facility] [address] [place], [address], 10/20/2018 14:22:03 11/08/2018 CT, chest, w/ contrast completed [facility] ([facility]) [address] [place], [address], 11/17/2018 16:12:28 12/11/2019 trans-thoracic echocardiogram (TTE) (PROC) completed [facility] [address] [place], [address], 12/17/2019 22:16:50 Procedure Notes None recorded. Medical Equipment None Reported. Allergies Allergen ID Allergen Name Allergen Category Reaction Reaction Severity Criticality Documentation Date Start Date Code Code System Note Provider Name and Address Organization Details Recorded Time 46941 codeine medicatio n other Not available Not available 05/18/20212013 2670 RxNorm Aimee xie [facility] 1 10:42:54 4674 codeine sulfate medicatio n tachycard ia Not available Not available 02/05/20142013 45726 RxNorm Glynn Hernández MD [address] [facility] [address], [place], [address], [facility] 7 11:31:43 Medications Name Sig Start Date Stop Date Status Note LastModified by Organization Details LastModified Time amitripty line hcl 25 mg tabs 1 tablet at bedtime active Not Available Not Available No t Available freestyle rachelle litefrees tyle lite test strips active Not Available Not Available Not Available freestyle mis lancets active Not Available Not Available Not Available metformin hcl 1000 mg tabs active Not Available Not Available Not Available amitripty line hcl 10 mg tabs 1-4 tabs at bedtime as needed active Not Available Not Available No t Available folic acid 1 mg tabs active Not Available Not Available Not Available freestyle mis lancetsfr eestyle lancets active Not Available Not Available Not Available metoprolo l succinate er 25 mg tb24 active Not Available Not Available Not Available atorvasta tin calcium 20 mg tabs active Not Available Not Available Not Available glipizide er 5 mg tb24 active [...] order, pt needs this script sent to [facility] while waiting 2 weeks for mail [...] 13 2:18PM BY MICHAEL LUO MA, ANNOTATI ON/ADDAMBER DUM; Not Available Not Available Not Available [...] 04/06/20 13 1:52PM BY GLYNN Macias MD, CATRACHITOATI ON/ DUM; Not Available Not Available [...] Available Not Available Not Available Fluarix Quad 1224-8470 (PF) 60 mcg (15 mcg x 4)/0.5 [...] Updated DateTime 9 175.9 cm 18.2 kg/m2 71681.4 5 g 65 /min 96.8 [degF] 98 % 98 % 101 mm[Hg] 69 mm[Hg] Lakshmi Stearns [place] - [facility] 9 10:24:44 Date Recorded Body height Body mass index (BMI) Body weight Heart rate Oxygen saturation Oxygen saturation in Arterial blood by Pulse oximetry Body temperature Systolic blood pressure Diastolic blood pressure Provider Name and Address Organization Details Last Updated DateTime 9 175.9 cm 20.2 kg/m2 62421.7 5 g 79 /min 97 % 97 % 98.3 [degF] 108 mm[Hg] 69 mm[Hg] Lakshmi Stearns MA [facility] 9 14:10:15 Date Recorded Body height Body mass index (BMI) Body weight Heart rate Oxygen saturation Oxygen saturation in Arterial blood by Pulse oximetry Body temperature Systolic blood pressure Diastolic blood pressure Provider Name and Address Organization Details Last Updated DateTime 9 175.9 cm 21.3 kg/m2 59151.8 9 g 60 /min 100 % 100 % 98.7 [degF] 112 mm[Hg] 74 mm[Hg] Lakshmi Stearns MA [facility] 9 15:41:31 Date Recorded Body height Body temperature Oxygen saturation Oxygen saturation in Arterial blood by Pulse oximetry Heart rate Body mass index (BMI) Body weight Systolic blood pressure Diastolic blood pressure Provider Name and Address Organization Details Last Updated DateTime 9 175.9 cm 97.7 [degF] 98 % 98 % 60 /min 21.3 kg/m2 26780.8 9 g 103 mm[Hg] 67 mm[Hg] Lakshmi Stearns MA [facility] 9 11:13:44 Date Recorded Body height Body mass index (BMI) Body weight Heart rate Oxygen saturation Oxygen saturation in Arterial blood by Pulse oximetry Systolic blood pressure Diastolic blood pressure Provider Name and Address Organization Details Last Updated DateTime 9 175.9 cm 22 kg/m2 85328.9 6 g 68 /min 96 % 96 % 126 mm[Hg] 80 mm[Hg] Margaret Coe [facility] 9 14:26:55 Social History Question Answer Notes LastModified by Organizat ion Details LastModified Time Tobacco Smoking Status Former Smoker quit 2008 Not Available [facility] 05/27/2020 03:36:41 Do You Have An Advance Directive? Yes HCP/ Girlfriend-Mustapha fletcher [id number] Information not available 05/27/2020 What Is Your Level Of Alcohol Consumption? Occasional Wine [id number] Information not available 05/27/2020 Is Blood Transfusion Acceptable In An Emergency? Yes [id number] Information not available 05/27/2020 What Is Your Level Of Caffeine Consumption? None [id number] Information not available 05/27/2020 How Much Tobacco Do You Chew? None [id number] Information not available 05/27/2020 Are You Currently Employed? No [id number] Information not available 05/27/2020 What Type Of Diet Are You Following? CARDIAC [id number] Information not available 05/27/2020 Which Illicit Or Recreational Drugs Have You Used? 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 01/03/2019 [id number] Information not available 05/27/2020 How Many Children Do You Have? 2 Sons [id number] Information not available 05/27/2020 Seat Belts Used Routinely Yes Information not available 06/13/2014 Are You Sexually Active? Yes [id number] Information not available 05/27/2020 Smoke Alarm In Home Yes Information not available 02/24/2016 At What Age Did You Start Smoking Tobacco? 20 [id number] Information not available 05/27/2020 Are You Passively Exposed To Smoke? Yes Information not available 02/24/2016 How Much Tobacco Do You Smoke? 0.5 PPD [id number] Information not available 05/27/2020 Do You Use Sunscreen Routinely? Yes [id number] Information not available 05/27/2020 How Many Years Have You Smoked Tobacco? 33 [id number] Information not available 05/27/2020 Sex: Unknown Functional Status Question Answer Note LastModified by Organization D etails LastModified Time Are you able to care for yourself? Yes [id number] Information n ot available 05/27/2020 What is your exercise level? None [id number] Information not available 05/27/2020 Mental Status None [...] History Condition Response Coronary Artery Disease Y Gout N Other N Blood Diseases N Kidney Stones N Hyperthyroidism N Breast Cancer N mrsa exposure N Lung Disease N Hypothyroidism N Depression N COPD N Defects or Inherited Disease N Developmental or Behavioral Disorders N Breast Problem N Anesthesia Complications N Headaches/Migraines N Varicose Veins Y Anxiety Disorder N Muscle, Joint, or Bone Problems N Obesity N Vision or Eye Problems N Arthritis N Head Injury/Concussion N Infertility N Polyps N Mental Disorder N Congenital Anomalies N Acid Reflux (GERD) N Cancer N Stroke N ADHD N Endometriosis N High Cholesterol Y Liver Disease N Headaches N Fibromyalgia N Kidney Disease N Heart Problems Y Ear or Hearing Problems N Hospitalizations Y Thyroid Problems N GI Problems N Developmental Delay N Acne N Eating Disorder N Skin Problems N Anemia Y Constipation N Bladder Problems N Mental Illness N Diabetes Y Ovarian Cancer N Bedwetting N Blood Transfusions N Heart Problems/Murmur N Seizures/Epilepsy N Tuberculosis N AIDS/HIV N Congestive Heart Failure (CHF) N Eczema N Abuse/Domestic Violence N Diverticulitis N Asthma N Allergies N Reflux/GERD N Hepatitis N Heart Disease N Pulmonary Embolism N Hypertension Y Chicken Pox N Autism Spectrum Disorder (ASD) N Osteoporosis N Immunizations Vaccine Type Date Status Note Provider Nam e and Address Organization Details Recorded Time Influenza, high-dose, trivalent, PF 4 completed Not Available [facility] 04/18/2020 18:23:48 Influenza, high-dose, trivalent, PF 5 completed Not Available [facility] 04/18/2020 18:23:48 Influenza, split virus, quadrivalent, preservative 6 completed Not Available [facility] 04/18/2020 18:23:48 Influenza, MDCK, quadrivalent, PF 8 completed Aimee xie [facility] 05/18/2021 10:43:09 Influenza, MDCK, quadrivalent, PF 9 completed Aimee xie [facility] 05/18/2021 10:43:09 Influenza, split virus, quadrivalent, PF 7 completed Not Available [facility] 08/11/2019 02:22:11 Tdap 9 completed Not Available [facility] 08/11/2019 02:21:49 influenza, seasonal, intradermal, preservative free 2 completed Not Available [facility] 04/18/2020 18:23:48 influenza, seasonal, intradermal, preservative free 3 completed Not Available [facility] 04/18/2020 18:23:48 Tdap 8 completed Not Available [facility] 04/18/2020 18:23:48 pneumococcal conjugate PCV 7 8 completed Not Available [facility] 04/18/2020 18:23:48 pneumococcal polysaccharide PPV23 4 completed Not Available [facility] 04/18/2020 18:23:48 Past Encounters Encounter ID Performer Location Encounter Start Date Encounter Closed Date Diagnosis/Indication Diagnosis SNOMED-CT Code Diagnosis ICD10 Code Diagnosis Note [id number] [facility] [address] [place] [address] 06/05/2012 00:00:00 [id number] [facility] [address] [place] [address] 08/07/2012 00:00:00 [id number] [facility] erce [address] [facility],[address] [place] [address] 11/15/2012 00:00:00 [id number] [facility] [facility]ce [address] [facility],[address] [place] [address] 04/06/2013 00:00:00 [id number] [facility]ce [address] [facility],[address] [place] [address] 07/04/2013 00:00:00 [id number] [facility] [facility] [address] [facility],[address] [place] [address] 08/10/2013 00:00:00 [id number] [facility] erce [address] [facility],[address] [place] [address] 10/03/2013 00:00:00 [id number] [facility] [facility] [address] [facility],[address] [place] [address] 11/15/2013 00:00:00 [id number] [facility] [facility] [address] [facility],[address] [place] [address] 12/14/2013 00:00:00 [id number] Lakshmi Stearns [place] Main Office [address] [place] [address] 03/08/2014 15:04:54 03/08/2014 15:59:04 Uncontrolled type 2 diabetes mellitus 948397771 Pt has lab orders from November and will have them done myah. Ophtho exam utd. Neuropathy due to diabetes mellitus 707941018 Not responding to gabapentin . Will try Lyrica and titrate as tolerated to goal pain control. Essential hypertension 60405109 Well controlled . Continue current regimen. [id number] Lakshmi Stearns [place] Main Office [address] [place] [address] 06/13/2014 10:49:55 06/13/2014 12:08:08 Adult health examination 216736681 Immunizati on status utd, will screen based on risk factors. Colon cancer screening utd, prosate cancer screening deffered secondary to low risk. Regular dental and ophtho care advised as well as seatbelt and sunscreen use. Distracted driving discussed. Advance directives in place. Body mass index 25-29 - overweight 985507191 Neuropathy due to diabetes mellitus 927155074 Not responding to gabapentin or lyrica. Will consult neuro for further evalution and treatment recommenda tions. Coronary atherosclerosis 364870625 Asymptomat ic with goal risk factor control. Cntinue current regimen. Uncontroll ed type 2 diabetes mellitus 507264733 Pt has lab orders from November and will have them done myah. Ophtho exam utd. Anemia 023759479 Has bee n stable. Will follow. [id number] Glynn Hernández MD Main Office [address] [address] [place] [address] 10/21/2014 14:44:22 10/21/2014 15:41:20 Coronary atherosclerosis 796294828 Asymptomat ic post CABG. Will reassess risk factor control. Cntinue current regimen for now. Essential hypertension 11634124 Well controlled . Continue current regimen. Anemia 440487671 Has bee n stable. Will follow. Uncontroll ed type 2 diabetes mellitus 650023292 [id number] Glynn Hernández MD Main Office [address] [address] [place] [address] 01/29/2015 11:15:31 01/29/2015 12:14:47 Essential hypertension 14607488 Well controlled . Continue current regimen. Multiple joint pain 79580024 Has risk for vitamin D deficiency which may be contributi ng to some of his pain along with neuropathy . Neuropathy due to diabetes mellitus 744280666 Not responding to gabapentin or Lyrica. Had EMG pending with neuro. Will see if Cymbalta helps with his discomfort . Well contr olled type 2 diabetes mellitus 237397861 [id number] Glynn Hernández MD Main Office [address] [address] [place] [address] 06/16/2015 10:57:24 06/16/2015 11:56:38 Adult health examination 331639345 Z00.00 Immunizati on status utd, will screen based on risk factors. Colon cancer screening utd, prosate cancer screening deferred secondary to low risk. Regular dental and ophtho care advised as well as seatbelt and sunscreen use. Distracted driving discussed. Advance directives in place. Neuropathy due to diabetes mellitus 653272389 E11.40 Working with neuro to gain better control. Current regimen is affording some relief. Coronary atherosclerosis 857400005 I25.10 Asymptomat ic with goal risk factor control. Continue current regimen. Uncontroll ed type 2 diabetes mellitus 427910115 E11.65 Will reassess control. Ophtho exam utd. Anemia 699769948 D64.9 Has been stable. Will follow. Chronic pancreatitis 235 063872 K86.1 Shoulder pain 77301129 M 25.511 Will call if persistent /worse to try PT and consider PMR/ortho eval. [id number] Glynn Hernández MD Main Office [address] [facility] [address] [place] [address] 10/16/2015 11:29:30 10/16/2015 12:21:59 Type 2 diabetes mellitus 71058808 E11.9 Very well controlled . Will decrease sulfonylur ea dose and see if still needed. Essential hypertension 22442684 I10 Well controlled . Continue current regimen. 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 Will be following up with cards in next few months. Claudication 315462448 I 73.9 Start with PVR and if abnormal try pletal and consult vascular. Neuropathy due to diabetes mellitus 184096530 E11.40 Working with neuro to gain better control. Current regimen is affording some relief. [id number] Quentin andrew Main Office [address] [facility] [address] [place] [address] 01/27/2016 12:58:25 01/27/2016 14:09:31 Knee pain 48947352 M25.561 pt states [place] tolerated oxycod[place] [id number] Quentin andrew Main Office [address] [facility] [address] [place] [address] 02/24/2016 12:49:07 02/24/2016 14:41:36 Knee pain 93264669 M25.561 no sig. help c PT -- will refer to [facility] - ? needs synvisc vs. check CT/MRI - needs arthroscop y? Hyperkalemia 10870925 E8 7.5 Serum crea tinine above reference range 772748015 R79.89 Coronary atherosclerosis 376685531 I25.812 seen by card. 8.1 - checked lipids, resumed statin recently - pending stress test in 2 weeks -- d/t above knee pain, ? change control coordinator to pharmacolo gic stress test [id number] Glynn Hernández MD Main Office [address] [facility] [address] [facility] [address] 03/10/2016 10:30:28 03/10/2016 11:26:16 Pure hypercholesterolemia 576211683 E78.0 Essential hypertension 15687608 I10 bp stable on BB and off acei x 2 wks Neuropathy due to diabetes mellitus 261162658 E11.40 f/u c neurologis t Type 2 bertram betes mellitus 28713003 E11.22 25 minute office visit with greater than 50% of the visit face-to-fa ce with the patient and/or family providing counseling and/or coordinati on of care. Arterioscl erosis of coronary artery bypass graft 312162585 I25.810 [id number] Glynn Hernández MD Main Office [address] [facility] [address] [facility] [place] [address] 05/06/2016 10:51:00 05/06/2016 12:03:15 Neuropathy due to diabetes mellitus 386016219 E11.40 Recalcitra nt to neuropathi c pain meds. Will ask PMR for further management recommenda tions. Essential hypertension 70402857 I10 Better on recheck but not at goal. If Cr stable and K level normal will resume 10mg QD. Pt has appt with Dr. Briseno in 2 weeks. Osteoarthr itis of knee 865216152 M17.11 Ask PMR for considerat ion of injection trial or other treatment options. Hypercholesterolemia 136 38309 E78.2 Reassess since resumtion of statin therapy. [id number] Glynn Hernández MD Main Office [address] [facility] [address] [place] [address] 11/18/2016 10:58:00 11/18/2016 12:13:19 Multiple joint pain 00627514 M25.50 ? if related to establishe d OA diagnosis vs neuropathy vs fibromyosi tis vs reactive arthropath y vs autoimmune phenomenon . Will try another pain managament referral. Diabetic d istal sensorimotor polyneuropathy 810792323 E11.42 Diabetes has been well controlled . Continue current regimen. 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 Continue current regimen. Major depr essive disorder 282386883 F32.9 ? if this is the cause or response to his chronic pain issues. Essential hypertension 45577634 I10 Will follow for now and depending on lab results resume low dose ACEI. [id number] Glynn Hernández MD Main Office [address] [place] [address] 12/23/2016 11:27:59 12/23/2016 12:26:20 Essential hypertension 61981782 I10 Will titrate BB and follow. Reluctant to resume ACEI given bump in creatinine that occurred last fall when he was on it. Knee pain 47213771 M25.5 61 M25.562 c/w his neuropathy which seems to be improving with venlafaxin e. Will follow. Unexplaine d weight loss 321342920 R63.4 Screen for thyroid disease and significan t pulmonary pathology. Anemia 212505188 D64.9 Had been stable. Will follow. Major depr essive disorder 616865413 F32.9 Will titrate SNRI dose. Bilateral hearing loss 60118607 H91.93 Becoming problemati c. Pt is considerin g further evaluation and treatment. [id number] Glynn Hernández MD Main Office [address] [facility] [address] [place] [address] 01/20/2017 13:31:07 01/20/2017 14:20:51 Essential hypertension 05245951 I10 Fair control. Continue current dose for now, Reluctant to resume ACEI given bump in creatinine that occurred last fall when he was on it. Knee pain 47924588 M25.5 61 M25.562 c/w his neuropathy which seems to be improving with venlafaxin e. Will follow. Diabetic d istal sensorimotor polyneuropathy 773621675 E11.42 Diabetes has been well controlled . Will decrease metformin dose. Anemia 957771420 D64.9 Had been stable. Will follow. Primary er ectile dysfunction 986388733 N52.9 Pt requesting rx. Has tolerated well in the past and has no contraindi cations. [id number] Mely Ahmadi Main Office [address] [facility] [address] [place] [address] 04/22/2017 10:31:20 04/22/2017 12:23:20 Needs influenza immunization 870367367 Z23 Diabetic d istal sensorimotor polyneuropathy 414243831 E11.42 Will reduce metformin dose and reassess a1c in 3 months.Wor perla with pain mgmt. Ging to start lamictal and considerin g medical marijuanna . Essential hypertension 07105674 I10 Will add low dose diuretic for added control and monitor potassium. Screening for malignant neoplasm of prostate [id number] Z12.5 Check PSA prior to upcoming CAX. [id number] Glynn Hernández MD Main Office [address] [facility] 207 [facility] [place] [address] 05/30/2017 10:57:48 05/30/2017 12:01:29 Adult health examination 155680911 Z00.00 Immunizati on status UTD, shingles advised via local pharmacy. Will screen based on risk factors. Colon cancer screening utd, will check 1 more PSA. Regular dental and ophtho care advised as well as seat belt and sunscreen use. Distracted driving discussed. Advance directives in place. Anemia 026963401 D64.9 Pt will d/c iron and folic acid. Will follow counts with these changes. Pure hypercholesterolemia 252952507 E78.00 LDL at goal. Continue current regimen. Well contr olled type 2 diabetes mellitus 105674971 E11.9 Improved control with weight loss. Will wean metformin dosing as long as A1C stays <6. Diabetic d istal sensorimotor polyneuropathy 746113544 E11.42 Essential hypertension 05809955 I10 Well controlled with addition of diuretic. Will continue current regimen. [id number] Lakshmi Stearns MA Main Office [address] [facility] 207 [facility] [address] 08/22/2018 09:57:31 08/22/2018 11:18:46 Essential hypertension 68067823 I10 Having orthostati c symptoms, so we'll d/c the diuretic and possibly BB if persistent . Type 2 bertram betes mellitus 59692006 E11.9 Fair control. Off of meds. Will defer resuming meds until lab work is done. Unintentio nal weight loss 404178298 R63.4 Based on comorbidit ies needs eval for possible occult malignancy wilian pancreatic /lung. Paresthesia 24101420 R20 .2 Chronic pancreatitis 235 805601 K86.1 Chronic ki dney disease stage 3 470087506 N18.[address] Briseno next week. Requires a tetanus booster 160447938 Z23 Administra tion of viral vaccine 34009715 Z23 [id number] Glynn Hernández MD Main Office [address] [facility] [address] [place] [address] 09/19/2018 10:00:58 09/19/2018 11:03:19 Early satiety 213694997 R68.81 With continued weight loss. Will see if insurance will cover high end imaging now for him. Unintentio nal weight loss 350658549 R63.4 Based on comorbidit ies needs eval for possible occult malignancy wilian pancreatic /lung. Anemia 002073428 D64.9 Refer to heme for further eval if stool is negative for occult blood, to GI if positive. Arterioscl erosis of coronary artery bypass graft 672126143 I25.810 Refill requested. Await results of stress testing. Underweight 797447837 R6 3.6 Z68.1 Patients body weight is below the normal range for age (<18.5). Discussed implicatio ns of low weight such as general health, bone health, immune function, iron absorption . [id number] Glynn Hernández MD Main Office [address] [facility] [address] [place] [address] 10/20/2018 13:46:55 10/20/2018 14:53:24 Adult health examination 166642837 Z00.00 Immunizati on status UTD, Shingrix advised via local pharmacy. Will screen based on risk factors. Routine colon and prostate cancer screenign are utd. Regular dental and ophtho care advised as well as seat belt and sunscreen use. Distracted driving discussed. Advance directives in place. Varicella vaccination 68 530016 Z23 Diabetic d istal sensorimotor polyneuropathy 453444754 E11.42 Pt will f/u with carmela glasgow. Recurrent major depression 65942596 F33.1 Venlafaxin e not working for mood or pain, so will try mirtazepin e to help with sleep and appetite. Anemia 429258775 D64.9 Insurance wont' cover abdominal imaging for evaluation of this issue and weight loss so will ask GI to consider endoscopie s even though stool cards were negative. Purpura an d/or petechiae 749851322 R23.3 Screen for vasculitis /coagulopa thy Coronary atherosclerosis 868424725 I25.10 Having cardiac cath done next week for abnormal stress test. [id number] Mely Ahmadi Main Office [address] [facility] 207 [place] [address] 11/17/2018 15:20:46 11/17/2018 16:39:55 Essential hypertension 97013129 I10 Well controlled on BB. Will monitor with weight. Recurrent major depression 04939534 F33.1 Mood, appetite and sleep seem to be improving with mirtazapin e. Will titrate and d/c venlafaxin e. Continue slow venlafaxin e wean. Diabetic d istal sensorimotor polyneuropathy 416402750 E11.42 Complicate d, and refractory to numerous nerve modulating medication s. Will re establish care with pain mgmt. Will continue current metformin dosing while monitoring corie function. Will ask Soledad to help with management . Anemia 785589037 D64.9 On procrit via renal. Will follow counts. [id number] Glynn Hernández MD Main Office [address] [facility] [address] [place] [address] 12/19/2018 10:36:36 12/19/2018 11:38:37 Essential hypertension 53810421 I10 Well controlled on BB. Will monitor with weight. Recurrent major depression 25906677 F33.1 Mood, appetite and sleep seem to be improving with mirtazapin e. Will titrate and d/c venlafaxin e. Continue slow venlafaxin e wean. Anemia 375635976 D64.9 On procrit via renal. Will follow counts. Bilateral glaucoma [id number] 69974 8761348 H40.9 per pt report will need repair for closed angle disease. Will request records. Uncontroll ed type 2 diabetes mellitus 622957571 E11.65 Metformin dosing recently titrated. Has appt with upcoming. [id number] Soledad Peck PA-C Main Office [address] [facility] [address] [place] [address] 01/03/2019 14:16:54 01/03/2019 15:36:52 Uncontrolled type 2 diabetes mellitus 431984092 E11.65 HGA1c today again is down to 6.7%. 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 At this point he will continue Metfromin at 1500 mg daily and I would like him to test glucose via CGM and let me know in the next 2 weeks of readings I will see him in 4-6 weeks with CGM log. Diabetic d istal sensorimotor polyneuropathy 748897902 E11.42 Pt. has jason with pain management . Chronic ki dney disease stage 3 856050666 N18.3 F/u with nephrologi st as scheduled. 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 720667343 E11.22 Health Concerns Section Related Observation LastModified by Organization Detai ls LastModified Time None Recorded Concern Status LastModified by Organization Details LastModified Time None Recorded Advance Directives Directive Y: HCP/ Girlfriend-Santa Payers Encounter Date Sequence Insurance Name Policy Number Policy Adorno Covered Member ID Adorno Member ID Guarantor Name 09/19/2018 1 [facility]) [id number] 1 Quentin Lara [id number] Quentin Lara 10/20/2018 1 [facility] [id number] 1 Quentin S S Jane [id number] Quentin S Jane 11/17/2018 1 [facility] [id number] 1 Quentin Lara [id number] Quentin Lara 12/19/2018 1 [facility] [id number] 1 Quentin Lara [id number] Quentin Lara 01/03/2019 1 [facility]) [id number] 1 Quentin Lara [id number] Quentin Lara Notes Date Note Type Note Provider Name [...] of early satiety. Glynn Hernández MD [address], [address], [facility] 09/19/2018 13:08:48 9 text/html Generic HPI TemplateReported bypatient.Notes:Here for a physical. Seeing ophtho regularly, no dentist. Glynn Hernández MD [address], [address], [facility] 10/20/2018 14:55:32 9 text/html Anxiety/DepressionReport ed bypatient.Quality:sympto [...] angiogram which was unremarkable per patient. Mely xie [facility] 12/05/2018 09:38:48 9 text/html Anxiety/DepressionReport ed bypatient.Quality:sympto [...] side effects from medication Glynn Hernández MD [address] [facility][1] 207, [place], [address], [facility] 12/19/2018 11:43:59 9 text/html 63 year old [...] 50 lbs since 2011. Soledad Peck PA-C [address] [address], [place], [address], [facility] 01/03/2019 16:08:47
--- OUTSIDE RECORDS SUMMARY | 2024-09-13 09:01 | XMS_ITS | Encounter Summary ---
Author Organization [facility] Address [address] [place] [address] Care Team Prov[address] Care Court Attendant Name Role Phone Rufino Rajput MD Primary Care Provider [phone] Francisco J Galeana MD Unavailable Orion Rodriguez MD Unavailable [phone] Kelby Celaya MD Unavailable [phone] System, Provider Not In Unavailable Unavaila ble Encounter Details Date Type Department Care Team (Late st Contact Info) Description 01/17/2024 Scanned Document [facility] [address] [place] [address] Dee Zhong [address] [facility] [address] [place] [address] Social History Tobacco Use Types Packs/Day Years [...] on file documented as of this encounter Visit Diagnoses Not on filedocumented in this encounter Care Teams Court Attendant Relationship Specialty Start Date End Date Rufino Rajput MD [address] [place] [address] PCP - General Internal Medicine 12/27/23 Francisco J Galeana MD 300 [facility] [address] [place] [address] Cardiology-Scan 01/06/24 Orion Rodriguez MD 31 [facility] [address] [place] [address] Surgery, Orthopedic 01/10/24 Kelby Celaya MD 100 [facility] 200 [place] [address] Physician Nephrology 01/10/24 System, Provider Not In 01/10/24 documented as of this encounter
--- OUTSIDE RECORDS SUMMARY | 2024-09-13 09:01 | XMS_ITS | Encounter Summary ---
Author Organization [facility] Address [address] [place] [address] Care Team Providers Care Booking Supervisor Name Role Phone Rufino Rajput MD Primary Care Provider [phone] Francisco J Galeana MD Unavailable Orion Rodriguez MD Unavailable [phone] Kelby Celaya MD Unavailable [phone] System, Provider Not In Unavailable Unavaila ble Encounter Details Date Type Department Care Team (Late st Contact Info) Description 04/16/2024 Scanned Document [facility] [place] [address] Orion Rodriguez MD [address] [place] [address] Social History Tobacco Use Types Packs/Day Years [...] on filedocumented in this encounter Care Teams Booking Supervisor Relationship Specialty Start Date End Date Rufino Rajput MD [address] [place] [address] PCP - General Internal Medicine 12/27/23 Francisco J Galeana MD 300 [facility] [address] [place] [address] Cardiology-Scan 01/06/24 Orion Rodriguez MD 31 [facility] 100 [place] [address] Surgery, Orthopedic 01/10/24 Kelby Celaya MD 100 [facility] 200 [place] [address] Physician Nephrology 01/10/24 System, Provider Not In 01/10/24 documented as of this encounter
--- OUTSIDE RECORDS SUMMARY | 2024-09-13 09:01 | XMS_ITS | Clinical Summary ---
Author Organization [facility] Address [address] [place] [address] Phone Care Team Providers Care Web Page Developer Name Role Phone Rufino Rajput MD Primary Care Provider [phone] Allergies Active Allergy Reactions Criticality Noted Date Comments Codeine 07/21/2020 Medications atorvastatin (LIPITOR) 20 mg tablet Take 1 tablet (20 mg total) by mouth daily. Active calcitrioL (ROCALTROL) 0.25 mcg capsule Take 1 Capsule by mouth every other day. Active insulin aspart (NovoLOG) 100 unit/mL injection Inject as directed. Sliding scale Active insulin detemir (LEVEMIR) 100 unit/mL injection Inject 17 Units into the skin at bedtime. Active pancrelipase, Hpa-Cxsp-Pqfl, (CREON) 24,000-76,000 -120,000 unit capsule Take 1 capsule (24,000 units of lipase total) by mouth 3 (three) times a day with meals. Active spironolactone (ALDACTONE) 25 mg tablet Take 1 Tablet by mouth daily. Active aspirin 81 mg EC tablet Take 1 tablet (81 mg total) by mouth daily. Active pregabalin (LYRICA) 150 mg capsule Take 1 capsule (150 mg total) by mouth 3 (three) times a day. Active sodium bicarbonate 650 mg tablet Take 1 tablet (650 mg total) by mouth 2 (two) times a day. Active thiamine (thiamine mononitrate, vit B1,) 100 mg tablet Take 1 tablet (100 mg total) by mouth daily. Active nitroglycerin (NITROSTAT) 0.[address] 1 tablet (0.4 mg total) under the tongue every 5 (five) minutes if needed. 01/24/2024 Active Active Problems Problem Noted Date Diagnosed Date Dizziness 07/30/2024 Assessment & Plan (07/30/2024 1:04 PM EST): I do not appreciate obvious carotid bruit. Given his history, I will schedule carotid duplex. Meantime, we will schedule 24-hour Holter monitor. Orders: Cardiac holter monitor (<= 48 hours); Future Vascular US duplex carotid bilateral; Future Lower extremity edema 06/08/2022 Overview (04/24/2024): Last Assessment & Plan: He has only minimal right ankle edema. Furosemide has been discontinued. He is on spironolactone prescribed by either nephrology or GI team. The most recent labs showed a persistent abnormal renal function. Aneurysm of ascending aorta 07/21/2020 Overview (04/24/2024): 11/2019 aortic root 4.4 cm ascending aorta 4.2 cm Last Assessment & Plan: Repeat echo to reassess aneurysm size. CAD of autologous bypass graft 07/21/2020 Overview (04/24/2024): PCI of circumflex remotely and then had LAD PCI in 2011. 3 vessel CABG with DOUGLAS to LAD, SVG to RCA and radial to OM in 09/2014 for SOB with ostial LAD and moderate RCA stenosis repeat cardiac catheterization in 2019 due to new abnormal EKG and new onset of shortness of breath with patent grafts Last Assessment & Plan: He had atypical chest discomfort over past a few months. The last ischemia workup was from 2019. I would like to repeat stress test before scheduled surgery. Assessment & Plan (07/30/2024 1:04 PM EST): Stable. Stress test January 2024 showed no major perfusion defect. Will continue medical treatment. Will repeat lipid profile. Diabetes 07/21/2020 Overview (04/24/2024): Last Assessment & Plan: Suggest him to call [facility] to get a new primary care physician. Hyperlipidemia LDL goal <70 07/21/2020 Overview (04/24/2024): Last Assessment & Plan: Patient's LDL is very well controlled however just after his significant illness. He may be falsely reassuringly low. History glycerides are elevated however in the setting of hyperglycemia. It does not appear as though his LFTs were checked recently. I have given him a lab slip to check his LFTs. Assessment & Plan (07/30/2024 1:04 PM EST): Dose has been reduced due to the liver problem. Encounters Date Type Department Care Team Description 08/10/2024 9:00 AM EST Ancillary Procedure [facility] Cardiology [facility] [address] [address] Dizziness 08/06/2024 8:30 AM EST Ancillary Procedure [facility] [address] [facility] [address] [place] [address] Dizziness 07/30/2024 8:50 AM EST Office Visit [facility] Cardiology [facility] [address] [facility] [address] [place] [address] Francisco J Galeana MD Chest pain due to myocardial ischemia, unspecified ischemic chest pain type (Primary Dx); Dizziness; CAD of autologous bypass graft; Hyperlipidemia LDL goal <70 07/16/2024 9:15 AM EST Office Visit [facility] Hematology Oncology [address] [place] [id number] Radha Lambert PA Thrombocytopenia (CMS/HCC) (Primary Dx); Anemia due to stage 3b chronic kidney disease (CMS/HCC); Stage 3b chronic kidney disease (CMS/HCC); History of heavy alcohol consumption; History of removal of retained hardware; Hypertension, unspecified type from Last 3 Months Immunizations Name Administration Dates Next Due Influenza Quadravalent, 0.5m l (Fluzone High-dose) 65yo and older 04/14/2023,04/28/2022,04/18/2021 Influenza, Unspecified 04/24/2019 Pneumococcal, Unspecified 07/06/2013 Tdap Tetanus diptheria acell ular pertussis (Boostrix; Adacel) 7yo and older 08/22/2018 Family History Medical History Relation Name Comments Heart failure Father Hypertension Sister Relation Name Status Comments Father Mother Sister Alive Social History Tobacco Use Types Packs/Day Years Used Date Smoking Tobacco: Former Cigarettes Q uit: 07/25/2005 Smokeless Tobacco: Never Alcohol Use Standard Drinks/Week Comments No 0 (1 standard drink = 0.6 oz pur e alcohol) Sex and Gender Information Value Date Recorded Sex Assigned at Not on file Legal Sex Male 9:23 AM EST Gender Identity Not on file Sexual Orientation Not on file Obstetrics History Last Filed Vital Signs Vital Sign Reading Time Taken Comments Blood Pressure 158/80 07/30/2024 8:51 AM EST Pulse 58 07/30/2024 8:51 AM EST Temperature 36 ??C (96.8 ??F) 07/16/2024 9:29 AM EST Respiratory Rate - - Oxygen Saturation 96% 07/30/2024 8:51 AM EST Inhaled Oxygen Concentration - - Weight 72.1 kg (159 lb) 07/30/2024 8:51 AM EST Height 180.3 cm (5' 11 ) 07/30/2024 8:51 AM EST Body Mass Index 22.18 07/30/2024 8:51 AM EST Plan of Treatment Upcoming Encounters Date Type Department Care Team (Late st Contact Info) Description 01/15/2025 9:30 AM EDT Office Visit [facility] Hematology Oncology [address] [place] [address] Radha Lambert PA [address] [place] [address] Health Maintenance Due Date Last Done Comments Diabetes: Annual Foot Exam 12/28/1965 Diabetes: Annual Retina Eye Exam 12/28/1965 Hepatitis B Vaccines (2 of 3 - Risk 3-dose series) 06/29/2021 06/01/2021 Hepatitis A Vaccines (2 of 2 - Risk 2-dose series) 11/30/2021 06/02/2021 Abdominal Aortic Aneurysm (AAA) Screen 06/27/2022 Colorectal Cancer Screening: Colonoscopy 06/27/2022 Depression Screening 06/27/2022 Falls Risk Assessment 06/27/2022 Hepatitis C Screening 06/27/2022 Social Influencers of Health Screening 06/27/2022 Medicare Annual Wellness Visit 03/30/2024 03/30/2023 Diabetes: Blood Sugar Control Test (HGBA1C) 07/12/2024 01/11/2024, 01/11/2024 Diabetes: Annual Urine Albumin-Creatinine Ratio (uACR) 04/20/2025 04/20/2024, 01/10/2024 Diabetes: Annual GFR (Glomerular Filtration Rate) 07/30/2025 07/30/2024, 07/16/2024, 05/17/2024, Additional history exists Hypertension/CHF/CAD Annual BMP Blood Test 07/30/2025 07/30/2024, 07/16/2024, 05/17/2024, Additional history exists DTaP,Tdap,and Td Vaccines (3 - Td or Tdap) 08/22/2028 08/22/2018, 04/26/2008 Cholesterol Screening (Lipid Panel) 07/30/2029 07/30/2024, 01/13/2023 Zoster Vaccines Completed 06/30/2022, 04/28/2022 RSV Immunization Patients 60+ Years Old Completed 04/18/2023 Pneumococcal Vaccine: 50+ Years Completed 12/18/2023, 04/28/2022, 07/24/2013, Additional history exists COVID-19 Vaccine Completed 04/23/2024, , 04/28/2022, Additional history exists Influenza Vaccine Completed 04/23/2024, , 04/28/2022, Additional history exists HIB Vaccines Aged Out No longer eligi ble based on patient's age to complete this topic HPV Vaccines Aged Out No longer eligi ble based on patient's age to complete this topic IPV Vaccines Aged Out No longer eligi ble based on patient's age to complete this topic MMR Vaccines Aged Out No longer eligi ble based on patient's age to complete this topic Meningococcal ACWY Vaccine Aged Out N o longer eligible based on patient's age to complete this topic Meningococcal B Vacine Aged Out No lo nger eligible based on patient's age to complete this topic RSV Immunization Patients Under 20 months Aged Out No longer eligible based on patient's age to complete this topic Varicella Vaccines Aged Out No longer eligible based on patient's age to complete this topic Procedures Procedure Name Priority Date/Time Associated Diagnosis Comments VAS US DUPLEX CAROTID BILATERAL Routine 08/10/2024 9:07 AM EST Dizziness CARDIAC HOLTER MONITOR (REPORT GENERATED IN HOUSE) Routine 08/06/2024 8:21 AM EST Dizziness CBC WITH AUTO DIFFERENTIAL Routine 07/30/2024 9:57 AM EST Thrombocytopenia (CMS/HCC) LIPID PANEL WITH REFLEX TO DIRECT LDL Routine 07/30/2024 9:57 AM EST Chest pain due to myocardial ischemia, unspecified ischemic chest pain type COMPREHENSIVE METABOLIC PANEL Routine 07/30/2024 9:57 AM EST Thrombocytopenia (CMS/HCC) CBC AND DIFFERENTIAL Routine 07/30/2024 9:57 AM EST Thrombocytopenia (CMS/HCC) ECG 12-LEAD Routine 07/30/2024 8:59 AM EST Chest pain due to myocardial ischemia, unspecified ischemic chest pain type CBC WITH AUTO DIFFERENTIAL Routine 07/16/2024 10:19 AM EST Thrombocytopenia (CMS/HCC) COMPREHENSIVE METABOLIC PANEL Routine 07/16/2024 10:19 AM EST Thrombocytopenia (CMS/HCC) CBC AND DIFFERENTIAL Routine 07/16/2024 10:19 AM EST Thrombocytopenia (CMS/HCC) HEMOGLOBIN A1C Routine 01/11/2024 HM URINE ALBUMIN CREATININE RATIO Routine 01/10/2024 from Last 3 Months or Most Recently Relevant to Health Maintenance Results * Vascular US duplex carotid bilateral (08/10/2024 9:07 AM EST) Left CCA dist sys 84 cm/s CV VAS LAB Left CCA dist arellano 32 cm/s CV VAS LAB LEFT COMMON CAROTID ARTERY MID S 104 cm/s CV VAS LAB LEFT COMMON CAROTID ARTERY MID D 25 cm/s CV VAS LAB Left CCA prox sys 116 cm/s CV VAS LAB Left CCA prox arellano 33 cm/s CV VAS LAB Left ICA dist sys 97 cm/s CV VAS LAB Left ICA dist arellano 24 cm/s CV VAS LAB Left ICA mid sys 110 cm/s CV VAS LAB Left ICA mid arellano 34 cm/s CV VAS LAB Left ICA prox sys 74 cm/s CV VAS LAB Left ICA prox arellano 19 cm/s CV VAS LAB Left ECA sys 101 cm/s CV VAS LAB LEFT EXTERNAL CAROTID ARTERY D 21 cm/s CV VAS LAB Left Prox Subclavian PSV 97 cm/s CV VAS LAB Left vertebral sys 78 cm/s CV VAS LAB LEFT VERTEBRAL ARTERY D 18 cm/s CV VAS LAB Right cca dist sys 89 cm/s CV VAS LAB Right CCA dist arellano 20 cm/s CV VAS LAB RIGHT COMMON CAROTID ARTERY MID S 81 cm/s CV VAS LAB RIGHT COMMON CAROTID ARTERY MID D 27 cm/s CV VAS LAB Right CCA prox sys 98 cm/s CV VAS LAB Right CCA prox arellano 24 cm/s CV VAS LAB Right ICA dist sys 86 cm/s CV VAS LAB Right ICA dist arellano 33 cm/s CV VAS LAB Right ICA mid sys 71 cm/s CV VAS LAB Right ICA mid arellano 23 cm/s CV VAS LAB Right ICA prox sys 70 cm/s CV VAS LAB Right ICA prox arellano 17 cm/s CV VAS LAB Right eca sys 92 cm/s CV VAS LAB RIGHT EXTERNAL CAROTID ARTERY D 19 cm/s CV VAS LAB Right Prox Subclavian PSV 126 cm/s CV VAS LAB Right vertebral sys 44 cm/s CV VAS LAB Anatomical Region Laterality Modality Vascular, Abdomen Ultrasound Narrative 08/12/2024 8:35 PM EST RIGHT. 1. There is mild atherosclerotic plaque in the right carotid system as noted above. 2. There is a < 50% stenosis in the right internal carotid artery based on Doppler velocity. 3. The subclavian artery has normal Doppler flow velocity. 4. The vertebral artery has normal Doppler flow patterns with antegrade ?? flow. LEFT. 1. There is mild atherosclerotic plaque in the left carotid system as noted above. 2. There is a < 50% stenosis in the left internal carotid artery based on Doppler velocity. 3. The subclavian artery has normal Doppler flow velocity. 4. The vertebral artery has normal Doppler flow patterns with antegrade ?? flow. Interpretation was done according to the [place] Symptomatic Carotid Endarterectomy Trial (NASCET) criteria ??and the Consensus Panel Grayscale and Doppler Ultrasound criteria for diagnosis of internal carotid artery stenosis. ??Please note that there are no clear criteria validated for the common carotid artery stenosis. Right Carotid The CCA has minimal heterogeneous plaque. The ICA has mild heterogeneous plaque. The ECA has minimal heterogeneous plaque. RT-115/78 LT-120/81 Vertebral flow is antegrade. Left Carotid The CCA has minimal heterogeneous plaque. The ICA has mild heterogeneous plaque. The ECA has minimal heterogeneous plaque. Vertebral flow is antegrade. Water Plant Pump Operator Supervisor Details A yu scale, color and doppler analysis ultrasound was performed. During the study longitudinal and transverse views were obtained. Pulsed wave doppler was performed. Overall the study quality was adequate. Francisco J Galeana MD CV VASCULAR PROCEDURES Final Res ult * CARDIAC HOLTER MONITOR (REPORT GENERATED IN HOUSE) (08/06/2024 8:21 AM EST) Anatomical Region Laterality Modality Cardiac Diagnost ic Narrative 08/07/2024 2:53 PM EST ?Sinus rhythm and sinus bradycardia. ??No arrhythmias. [facility] DI[facility]STIC [facility]ING DEPARTMENT [address] [place] [address] TEL: FAX: Type of test: ??24 hour Holter Monitor Date of test: 08/06/24 Ordering provider: Francisco J Galeana MD Reason for Test: Dizziness PVCA Advertising Clerk Findings: 1: Normal Sinus Rhythm with Sinus Bradycardia. 2: Heart rate range was 46- 88 bpm with an average of 60 bpm. Total time in Sinus Bradycardia was 14 hrs 58 mins. 3: Rare PACs and atrial pairs. Rare PVCs. 4: No pauses noted. Longest R-R 1.5 sec. 5: Diary returned with no entries. Impression: Normal sinus rhythm with some periods of sinus bradycardia and a relatively narrow range of heart rates. ??No significant arrhythmias or pauses noted. Francisco J Galeana MD CV CARDIAC SERVICES PROCEDURES F inal Result * Lipid panel with reflex to direct LDL (07/30/2024 9:57 AM EST) Cholesterol 127 0 - 200 mg/dL LAB CHEMISTRY METHOD 07/30/2024 4:32 PM EST [facility] Triglycerides 140 0 - 150 mg/dL LAB CHEMISTRY METHOD 07/30/2024 4:32 PM EST [facility] HDL 68 >=40 mg/dL LAB CHEMISTRY METHOD 07/30/2024 4:32 PM EST [facility] LDL Calculated 31 0 - 100 mg/dL LAB CHEMISTRY METHOD 07/30/2024 4:32 PM [facility] VLDL Cholesterol Rick 28 mg/dL LAB CHEMISTRY METHOD 07/30/2024 4:32 PM [facility] Non HDL Chol. (LDL+VLDL) 59 <145 mg/dL LAB CHEMISTRY METHOD 07/30/2024 4:32 PM EST [facility] Chol/HDL Ratio 1.9 0.0 - 4.4 LAB CHEMISTRY METHOD 07/30/2024 4:32 PM [facility] Blood Venous blood specimen / Unknown Venipuncture / Unknown 07/30/2024 9:57 AM EST 07/30/2024 9:57 AM EST Francisco J Galeana MD LAB BLOOD ORDERABLES Final Resul t [facility] [address] [place] [address], * (ABNORMAL) CBC auto differential (07/30/2024 9:57 AM EST) Only the most recent of2 resultswithin the time period is included. WBC 7.8 4.8 - 10.8 K/mcL LAB HEMETOLOGY METHOD 07/30/2024 2:38 PM EST [facility] RBC 3.90(L) 4.50 - 5.50 M/mcL LAB HEMETOLOGY METHOD 07/30/2024 2:38 PM [facility] Hemoglobin 12.4(L) 13.5 - 17.5 g/dL LAB HEMETOLOGY METHOD 07/30/2024 2:38 PM [facility] Hematocrit 38.3(L) 42.0 - 54.0 % LAB HEMETOLOGY METHOD 07/30/2024 2:38 PM [facility] MCV 97.5 79.0 - 98.0 FL LAB HEMETOLOGY METHOD 07/30/2024 2:38 PM [facility] MCH 31.6 27.0 - 32.0 pcg LAB HEMETOLOGY METHOD 07/30/2024 2:38 PM [facility] MCHC 32.4 32.0 - 37.0 g/dL LAB HEMETOLOGY METHOD 07/30/2024 2:38 PM [facility] RDW 13.6 11.0 - 15.0 % LAB HEMETOLOGY METHOD 07/30/2024 2:38 PM [facility] Platelets 102(L) 130 - 400 K/mcL LAB HEMETOLOGY METHOD 07/30/2024 2:38 PM [facility] MPV 12.2(H) 7.0 - 11.0 FL LAB HEMETOLOGY METHOD 07/30/2024 2:38 PM [facility] NRBC 0.0 <1.0 % LAB HEMETOLOGY METHOD 07/30/2024 2:38 PM [facility] NRBC Absolute 0.00 <0.10 K/mcL LAB HEMETOLOGY METHOD 07/30/2024 2:38 PM [facility] Neutrophils Relative 62.7 % LAB HEMETOLOGY METHOD 07/30/2024 2:38 PM [facility] Lymphocytes Relative 23.4 % LAB HEMETOLOGY METHOD 07/30/2024 2:38 PM EST [facility] Monocytes Relative 10.3 % LAB HEMETOLOGY METHOD 07/30/2024 2:38 PM [facility] Eosinophils Relative 2.7 % LAB HEMETOLOGY METHOD 07/30/2024 2:38 PM [facility] Basophils Relative 0.5 % LAB HEMETOLOGY METHOD 07/30/2024 2:38 PM [facility] Immature Granulocytes Relative 0.4 % LAB HEMETOLOGY METHOD 07/30/2024 2:38 PM [facility] Neutrophils Absolute 4.87 1.50 - 7.00 K/mcL LAB HEMETOLOGY METHOD 07/30/2024 2:38 PM [facility] Lymphocytes Absolute 1.82 1.00 - 5.00 K/mcL LAB HEMETOLOGY METHOD 07/30/2024 2:38 PM [facility] Monocytes Absolute 0.80 0.20 - 1.00 K/mcL LAB HEMETOLOGY METHOD 07/30/2024 2:38 PM [facility] Eosinophils Absolute 0.21 0.00 - 0.50 K/mcL LAB HEMETOLOGY METHOD 07/30/2024 2:38 PM [facility] Basophils Absolute 0.04 0.00 - 0.20 K/mcL LAB HEMETOLOGY METHOD 07/30/2024 2:38 PM [facility] Immature Granulocytes Absolute 0.03 0.00 - 0.03 K/mcL LAB HEMETOLOGY METHOD 07/30/2024 2:38 PM [facility] Blood Venous blood specimen / Unknown Venipuncture / Unknown 07/30/2024 9:57 AM EST 07/30/2024 9:57 AM EST us Radha BOCANEGRA LAB BLOOD ORDERABLES Final Resul t [facility] [address] [place] [address], * (ABNORMAL) Comprehensive metabolic panel (07/30/2024 9:57 AM EST) Only the most recent of2 resultswithin the time period is included. Sodium 138 133 - 145 mmol/L LAB CHEMISTRY METHOD 07/30/2024 4:48 PM [facility] Comment:Results verified by repeat testing Potassium 4.5 3.5 - 5.5 mmol/L LAB CHEMISTRY METHOD 07/30/2024 4:48 PM [facility] Chloride 107 96 - 110 mmol/L LAB CHEMISTRY METHOD 07/30/2024 4:48 PM [facility] CO2 27 21 - 32 mmol/L LAB CHEMISTRY METHOD 07/30/2024 4:48 PM [facility] Anion Gap 4 3 - 11 LAB CHEMISTRY METHOD 07/30/2024 4:48 PM [facility] Glucose 68(L) 70 - 100 mg/dL LAB CHEMISTRY METHOD 07/30/2024 4:48 PM [facility] BUN 28(H) 5 - 25 mg/dL LAB CHEMISTRY METHOD 07/30/2024 4:48 PM [facility] Creatinine 2.44(H) 0.70 - 1.30 mg/dL LAB CHEMISTRY METHOD 07/30/2024 4:48 PM [facility] eGFR 28(L) >=60 mL/min/1. 73m2 LAB CHEMISTRY METHOD 07/30/2024 4:48 PM [facility] Comment:Calculation based on the??Chronic Kidney Disease Epidemiology Collaboration (CKD-EPI) equation refit??without adjustment for race. BUN/Creatinine Ratio 11.5 LAB CHEMISTRY METHOD 07/30/2024 4:48 PM [facility] Calcium 9.8 8.5 - 10.5 mg/dL LAB CHEMISTRY METHOD 07/30/2024 4:48 PM [facility] AST (SGOT) 28 10 - 42 unit/L LAB CHEMISTRY METHOD 07/30/2024 4:48 PM [facility] ALT (SGPT) 43 10 - 60 unit/L LAB CHEMISTRY METHOD 07/30/2024 4:48 PM [facility] Alkaline Phosphatase 84 42 - 121 unit/L LAB CHEMISTRY METHOD 07/30/2024 4:48 PM [facility] Total Protein 7.0 6.0 - 8.0 g/dL LAB CHEMISTRY METHOD 07/30/2024 4:48 PM [facility] Albumin 3.9 3.2 - 5.0 g/dL LAB CHEMISTRY METHOD 07/30/2024 4:48 PM [facility] Total Bilirubin 0.3 0.0 - 1.4 mg/dL LAB CHEMISTRY METHOD 07/30/2024 4:48 PM [facility] Blood Venous blood specimen / Unknown Venipuncture / Unknown 07/30/2024 9:57 AM EST 07/30/2024 9:57 AM EST us Radha BOCANEGRA LAB BLOOD ORDERABLES Final Resul t [facility] [address] [place] [address], * ECG 12 lead (07/30/2024 8:59 AM EST) Ventricular Rate ECG 58 BPM GEMUSE Atrial Rate 58 BPM GEMUSE P-R Interval 164 ms GEMUSE QRS Duration 100 ms GEMUSE Q-T Interval 424 ms GEMUSE QTc 416 ms GEMUSE P Wave [place] 83 degrees GEMUSE R [place] 80 degrees GEMUSE T [place] 105 degrees GEMUSE ECG Interpretation Sinus bradycardia Nonspecific ST and T wave abnormality Abnormal ECG When compared with ECG of 20-FEB-2022 12:31, QT has shortened Confirmed by Alicia GALEANA YUFENG ([id number]) on 07/30/2024 9:06:44 AM GEMUSE 07/30/2024 8:59 AM EST 07/30/2024 9:06 AM EST Francisco J Galeana MD ECG ORDERABLES Final Result GEMUSE * Hemoglobin A1c (01/11/2024) Hemoglobin A1C 0.0 % Comment:No Interpretation Blood Venous blood specimen / Unknown Historical Provider LAB BLOOD ORDERABLES Gertrude l Result * HM Urine Albumin Creatinine Ratio (01/10/2024) HM Urine Albumin Creatinine Ratio Abstracted Historical Provider HEALTH MAINTENANCE Final Result from Last 3 Months or Most Recently Relevant to Health Maintenance Insurance MEDICARE [facility] Advance Directives Documents on File Type Date Recorded Patient Program Officer Expl anation Health Care Decision (hx) 06/04/2021 AD LOPEZ DIRECTIVE Health Care Decision (hx) 06/04/2021 AD LOPEZ DIRECTIVE Health Care Decision (hx) 06/04/2021 AD LOPEZ DIRECTIVE Health Care Decision (hx) 06/04/2021 AD LOPEZ DIRECTIVE Health Care Decision (hx) 06/04/2021 AD LOPEZ DIRECTIVE Health Care Decision (hx) 06/04/2021 AD LOPEZ DIRECTIVE Health Care Decision (hx) 06/04/2021 AD LOPEZ DIRECTIVE Health Care Decision (hx) 06/04/2021 AD LOPEZ DIRECTIVE Health Care Decision (hx) 06/04/2021 AD LOPEZ DIRECTIVE Health Care Decision (hx) 06/04/2021 AD LOPEZ DIRECTIVE Care Teams Web Page Developer Relationship Specialty Start Date End Date Rufino Rajput MD [facility] [place] [address] PCP - General Internal Medicine 01/28/21
--- OUTSIDE RECORDS SUMMARY | 2024-09-13 09:01 | XMS_ITS | Encounter Summary ---
Author Organization [facility] Address [address] [place] [address] Care Team Providers Care Radiation Therapy Technician Name Role Phone Rufino Rajput MD Primary Care Provider [phone] Francisco J Galeana MD Unavailable Orion Rodriguez MD Unavailable Kelby Celaya MD Unavailable [phone] System, Provider Not In Unavailable Unavaila ble Encounter Details Date Type Department Care Team (Late st Contact Info) Description 04/18/2024 Scanned Document [facility] [address] [place] [address] Dee Zhong [address] [facility] [address] [place] [address] Social History Tobacco Use Types Packs/Day Years [...] on filedocumented in this encounter Care Teams Radiation Therapy Technician Relationship Specialty Start Date End Date Rufino Rajput MD [address] [place] [address] PCP - General Internal Medicine 12/27/23 Francisco J Galeana MD 300 [facility] [address] [place] [address] Cardiology-Scan 01/06/24 Orion Rodriguez MD 31 [facility] [address] [place] [address] Surgery, Orthopedic 01/10/24 Kelby Celaya MD 100 [facility] [address] [place] [address] Physician Nephrology 01/10/24 System, Provider Not In 01/10/24 documented as of this encounter
--- OUTSIDE RECORDS SUMMARY | 2024-09-13 09:01 | XMS_ITS ---
Author Organization [facility] Address [address] [facility] [place] [address] Care Team Providers Care Registered Art Therapist Name Role Phone Regulo CONKLIN, Rufino Primary Care Provider Ni Almanza [phone] REASON FOR VISIT Transfer to Different Provider Encounters Encounter Location Date Provider Diagnosis [address] [address] 07/13/2024 Ni Leone Plan Of Treatment Next Appt Details Provider Name:Ni duncan, 11/02/2024 01:00:00 PM, [address] [place] [address], [id number], Progress Notes * Quentin LARA SDOB:[birth year] (68 yo M)Acc No.[id number]:07/13/2024 Progress Note Patient:?Quentin LARA Provider:?Ni Leone DPM :1955???Age:68 Y???Sex:Male Santana e:07/13/2024 Address:[address], [place]-[address] Pcp:Rufino Rajput MD Subjective: * Chief Complaints: * ???1. Transfer to Different Provider. * Medical History:? Objective: * Vitals:? Assessment: Plan: * Treatment: * Images: * The named appointment provid er may or may not be the originator of this progress note, and it is not deemed complete until electronically signed by the appointment provider. Sign off status: Pending * Provider:?Ni Leone DPM Date:?1 09/13/2023 Generated for Vika nicholson/Carrie/Ashley on:?09/13/2024 09:00 AM EST
--- OUTSIDE RECORDS SUMMARY | 2024-09-13 09:01 | XMS_ITS | Encounter Summary ---
Author Organization [facility] Address [address] [place] [address] Care Team Providers Care Mycology Teacher Name Role Phone Rufino Rajput MD Primary Care Provider [phone] Francisco J Galeana MD Unavailable Orion Rodriguez MD Unavailable [phone] Kelby Celaya MD Unavailable System, Provider Not In Unavailable Unavaila ble Encounter Details Date Type Department Care Team (Late st Contact Info) Description 01/18/2024 Scanned Document [facility] [address] [place] [address] Dee Zhong [address] [facility] [address] [place] [address] Social History Tobacco Use Types Packs/Day Years [...] on filedocumented in this encounter Care Teams Mycology Teacher Relationship Specialty Start Date End Date Rufino Rajput MD [address] [place] [address] PCP - General Internal Medicine 12/27/23 Francisco J Galeana MD 300 [facility] [address] [place] [address] Cardiology-Scan 01/06/24 Orion Rodriguez MD 31 [facility] 100 [place] [address] Surgery, Orthopedic 01/10/24 Kelby Celaya MD 100 [facility] 200 [place] [address] Physician Nephrology 01/10/24 System, Provider Not In 01/10/24 documented as of this encounter
== END 2024-09-13 09:31 | disposition home or self-care (01) ==
PROVIDERS: PCP Internal Medicine; Visit Provider Internal Medicine Gastroenterology
DX: D64.9 Anemia, unspecified (principal); K70.31 Alcoholic cirrhosis of liver with ascites; R93.5 Abnormal findings on diagnostic imaging of other abdominal regions, including retroperitoneum; K22.0 Achalasia of cardia; R19.7 Diarrhea, unspecified
CPT/HCPCS: 99214

== ENCOUNTER → 2024-09-13 08:34 | Outpatient (BNVA) | payer MEDICARE, OTHER, SELFPAY | PROVIDERS: PCP Internal Medicine; Visit Provider Internal Medicine Gastroenterology | DX: K70.31 Alcoholic cirrhosis of liver with ascites (principal); K22.0 Achalasia of cardia; D64.9 Anemia, unspecified; R93.5 Abnormal findings on diagnostic imaging of other abdominal regions, including retroperitoneum; R19.7 Diarrhea, unspecified | CPT/HCPCS: 99212 ==

== ENCOUNTER 2024-11-13 09:29 | Outpatient (AMB) | payer MEDICARE, OTHER, SELFPAY ==
[2024-11-13 09:52] VITALS: BP 140/70; PULSE 58; TEMP 36.7; O2SAT 100; BMI 22.9
--- NOTE | 2024-11-13 09:52 | A.OFFPC_ITS ---
Vital Signs 11/13/24 09:52 Height 5 ft 11 in Weight 164 lb BMI 22.9 BP 140/70 H Blood Pressure Location Lt brachial Position Sitting Pulse 58 Temp 98.0 F Temp Source Oral Pulse Oximetry (%) 100 Oxygen Delivery Method Room Air Intake Visit Reasons: 4 months f/up Allergies codeine Allergy (Unknown, Verified 09/13/24 08:39) Unknown Medication List - Last Reconciled 11/13/24 by Rufino Rajput MD aspirin 81 mg PO BEDTIME atorvastatin 20 mg PO DAILY 90 days blood-glucose meter As directed insulin aspart U-100 (Novolog FlexPen U-100 Insulin aspart) 6 - 9 sliding scale doses subcut BID insulin detemir U-100 (Levemir FlexPen) 17 units subcut DAILY lancets As directed [id number]-[id number]-[id number] 24,000-76,000 -120,000 unit (Creon) 2 caps PO TID 90 days multivitamin 1 tab PO DAILY pen needle, diabetic B.i.d. pregabalin 150 mg PO TID 30 days spironolactone 25 mg PO DAILY thiamine mononitrate (vit B1) 100 mg PO DAILY 90 days Tobacco use date assessed: 11/13/24 Fall risk assessment: No Falls in past year Last assessed Fall Risk: 11/13/24 Dental Screening Dental Screen Date: 11/13/24 Did you have a dental visit in the last 12 months?: No Did you have a dental problem in the last 6 months where you did not have access to dental care?: No Was dental information given to patient?: No HPI 4 months f/up HPI Details 68-year-old male with a history of diabe rachelle mellitus, hypertension, chronic kidney disease, diabetic retinopathy, diabetic neuropathy, chronic pancreatitis, history of alcohol abuse, cardiomyopathy, hypertension, presenting for a follow- up on current medical management. . 2. Diabetic Neuropathy Continue current medication regimen with Lyrica for neuropathy pain management. Through pain management [facility] 3. Diabetes Mellitus Blood glucose levels and HbA1c are stable. Continue current insulin therapy and monitor blood sugar levels regularly. Plan follow-up with the professional driver. [facility] 4. Hypercholesterolemia Continue statin therapy for cholesterol management, review lipid panel regularly. Treatment through Cardiology 5. Hypertension Continue spironolactone managed by Nephrology Dr. Celaya along with chronic kidney disease [place] [facility] [place] [facility] for liver cirrhosis Dr vidal endocrinology [facility] for diabetes management. Dr Duarte Nephrology: Dr Celaya Cardio : Dr Galeana Urology Dr Mora Pain managment [facility] Ophthalmology Dr. Ching Podiatry Review of Systems General: No fever no chills neurological: No headaches no dizziness ear nose throat: No sore throat no hearing difficulty no ear pain cardiovascular: No syncope, no chest pain, no palpitations gastrointestinal: No nausea vomiting or diarrhea endocrine: No polyuria polydipsia no heat intolerance genitourinary: No dysuria skin: No new complaints Physical Exam general: No acute distress HEENT: No acute findings neck: Supple respiratory system: Able to talk in full sentences, no audible wheeze no stridor cardiovascular: S1-S2 gastrointestinal: No pain extremities: superficial scratch from dog bite noted right hand dorsal aspect QUARTER SEAMER: Alert awake oriented x3 motor sensory intact skin: Normal turgor Patient Instructions - Continue prescribed medications, monit oring for side effects. - Monitor blood glucose levels regularly and report any significant changes. - Attend scheduled appointments with spe mirianlists for further evaluation. - Monitor any changes in the condition o f the skin, particularly after the dog scratch. Follow-up 6 months [facility] Medical History Ascites Chronic kidney disease GERD (gastroesophageal reflux disease) Macrocytic anemia Chronic diabetic ulcer of right foot determined by examination Anemia Osteomyelitis Hearing difficulty Neuropathy Cataracts, bilateral Bunion Heart attack CAD (coronary artery disease) High cholesterol Diabetes Hypertension Surgical History History of esophagogastroduodenoscopy (EGD) H/O colonoscopy Hx of heart artery stent Hx of cystoscopy Hx of endoscopy History of bunionectomy of right great toe H/O rotator cuff surgery H/O heart bypass surgery Family History Sister HTN (hypertension) Sister HTN (hypertension) Father Heart disease Heart attack Mother Kidney failure Social History Household Members: Significant Other Housing: Condominium Are you a primary foster care therapist to a significant other at home: No Do you presently have visiting nurse or other home services: No Alcohol intake: current Alcohol intake frequency: former alcohol drinker Alcohol type: beer Patient Tobacco Use Status: Former Tobacco user Tobacco use type: Cigarette Cigarette Packs Per Day: 1 Cigarettes Per Day: 20 Years Smoked: 15 e-Cigarette/Vaping Use: Never Used Substance Use Type: Marijuana service: No Current occupational status: unemployed Cognitive needs: No Hearing needs: Yes Vision needs: No Questionnaire PHQ-9 Over the last 2 weeks, how often have you been bothered by any of the following problems? 1. Little interest or pleasure in doing things: not at all 2. Feeling down, depressed, or hopeless: not at all 3. Trouble falling or staying asleep, or sleeping too much: several days 4. Feeling tired or having little energy: several days 5. Poor appetite or overeating: not at all 6. Feeling bad about yourself - or that you are a failure or have let yourself or your family down: not at all 7. Trouble concentrating on things, such as reading the newspaper or watching television: not at all 8. Moving or speaking so slowly that other people could have noticed. Or the opposite - being so fidgety or restless that you have been moving around a lot more than usual: not at all 9. Thoughts that you would be better off or of hurting yourself in some way: not at all Total score: 2 Depression Screening Interpretation: Negative Depression Screening Done: Yes 03763 - PHQ-9 Billing: Yes Source: Developed by Drs. Ted Hong, Mera Davenport, Jayro Elizabeth and colleagues, with an educational steffany from [employer]. Thrive Questionnaire Date Thrive assessed: 11/10/24 I am a: Patient What is your living situation today?: I have a steady place to live Within the past 12 months, did the food you bought not last and you didn't have the money to get more?: Never true Within the past 12 months, did you worry whether your food would run out before you got money to buy more?: Never true Do you have trouble paying for medicines?: No Do you have trouble getting transportation to medical appointments?: No Do you have trouble paying your heating and electricity bill?: No Do you have trouble taking care of your child, family member or friend?: No Do you have trouble with day-to-day activities such as bathing, preparing meals, shopping, managing finances, etc.?: No Are you currently unemployed and looking for a job?: No Are you interested in more education?: No Please select the resources that you would like help with: None Currently or been in a relationship where the following occur: I choose not to answer THRIVE Score: 0 AUDIT C Alcohol Use Questionnaire (AUDIT-C) 1. How often do you have a drink containing alcohol?: Never 3. How often do you have six or more drinks on one occasion?: Never Total Score: 0 STAINSLAV-7 AMB Questionnaire STANISLAV-7 Date STANISLAV - 7 assessed: 04/06/24 Feeling nervous, anxious, or on edge: 1 = Several days Not being able to stop or control worryin = Several days Worrying too much about different things: 1 = Several days Trouble relaxin = Not at all Being so restless that it is hard to sit still: 0 = Not at all Becoming easily annoyed or irritable: 1 = Several days Feeling afraid as if something awful might happen: 1 = Several days Total STANISLAV-7 score (0-4 normal; 5-9 mild; 10-14 moderate; 15-21 severe): 5 Source: Developed by Drs. Ted Hong, Mera Davenport, Jayro Elizabeth and colleagues, with an educational steffany from [employer]. STANISLAV-7 Assessment Billing STANISLAV-7 Assessment Tool: STANISLAV-7 Assessment 66340 Physical exam (Primary Care) Vital Signs: Last Vital Signs Temp 98.0 F 11/13/24 09:52 Pulse 58 11/13/24 09:52 BP 140/70 H 11/13/24 09:52 Pulse Ox 100 11/13/24 09:52 Oxygen Delivery Method Room Air 11/13/24 09:52 BMI result Body Mass Index 22.9 Tobacco/Smoking Status: Tobacco use Status Tobacco use date assessed 11/13/24 11/13/24 09:55 Patient Tobacco Use Status Former Tobacco user 11/13/24 09:55 Tobacco use type Cigarette 11/13/24 09:55 e-Cigarette/Vaping Use Never Used 11/13/24 09:55 PHQ-9: PHQ-9 Score PHQ-9: Total score 2 11/13/24 10:10 Depression Screening Interpretation: Negative Thrive Assessment: Date of Thrive Assessment Date Thrive assessed 11/10/24 11/13/24 09:55 Currently or been in a relationship where the following occur: I choose not to answer Coding Level of Care Code Est Pt Level 4 (15090) Diagnoses 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 Cardiomyopathy type: alcoholic Stage 3a chronic kidney disease N18.31 Chronic kidney disease stage 3 subtype: stage 3a (GFR 45-59) Chronic alcoholic pancreatitis K86.0 Proliferative diabetic retinopathy associated with type 1 diabetes mellitus, unspecified laterality, unspecified proliferative retinopathy type E10.3599 Diabetes mellitus type: type 1 Diabetic retinopathy severity: with proliferative retinopathy Proliferative retinopathy type: unspecified Laterality: unspecified laterality Additional Codes PHQ-9 - 06798 - PHQ-9 Billing: Yes ([id number]) STANISLAV-7 Assessment Billing - STANISLAV-7 Assessment Tool: STANISLAV-7 Assessment 40450 ([id number]) Assessment & Plan Assessment & Plan (1) Insulin dependent type 1 diabetes mellitus: Code(s): E10.9 - Type 1 diabetes mellitus without complications Category: Medical Qualifiers: Diabetes mellitus complication status: with neurologic complications Diabetes mellitus complication detail: with other neurological complication Qualified Code(s): E10.49 - Type 1 diabetes mellitus with other diabetic neurological complication (2) Diabetic neuropathy: Code(s): E11.40 - Type 2 diabetes mellitus with diabetic neuropathy, unspecified Category: Medical Qualifiers: Diabetes mellitus type: type 1 Diabetes mellitus complication detail: diabetic polyneuropathy Qualified Code(s): E10.42 - Type 1 diabetes mellitus with diabetic polyneuropathy (3) Coronary artery disease: Code(s): I25.10 - Atherosclerotic heart disease of [place] coronary artery without angina pectoris Category: Medical Qualifiers: Coronary Disease-Associated Artery/Lesion type: [place] artery [place] vs. transplanted heart: [place] heart Associated angina: without angina Qualified Code(s): I25.10 - Atherosclerotic heart disease of [place] coronary artery without angina pectoris (4) Lipid disorder: Code(s): E78.9 - Disorder of lipoprotein metabolism, unspecified Category: Medical (5) Cardiomyopathy: Code(s): I42.9 - Cardiomyopathy, unspecified Category: Medical Qualifiers: Cardiomyopathy type: alcoholic Qualified Code(s): I42.6 - Alcoholic cardiomyopathy (6) Stage III chronic kidney disease: Code(s): N18.30 - Chronic kidney disease, stage 3 unspecified Category: Medical Qualifiers: Chronic kidney disease stage 3 subtype: stage 3a (GFR 45-59) Qualified Code(s): N18.31 - Chronic kidney disease, stage 3a (7) Chronic alcoholic pancreatitis: Code(s): K86.0 - Alcohol-induced chronic pancreatitis Category: Medical (8) Diabetic retinopathy: Code(s): E11.319 - Type 2 diabetes mellitus with unspecified diabetic retinopathy without macular edema Category: Medical Qualifiers: Diabetes mellitus type: type 1 Diabetic retinopathy severity: with proliferative retinopathy Proliferative retinopathy type: unspecified Laterality: unspecified laterality Qualified Code(s): E10.3599 - Type 1 diabetes mellitus with proliferative diabetic retinopathy without macular edema, unspecified eye Plan 68-year-old male with a history of diabetes mellitus, hypertension, chronic kidney disease, diabetic retinopathy, diabetic neuropathy, chronic pancreatitis, history of alcohol abuse, cardiomyopathy, hypertension, presenting for a follow- up on current medical management. . 2. Diabetic Neuropathy Continue current medication regimen with Lyrica for neuropathy pain management. Through pain management [facility] 3. Diabetes Mellitus Blood glucose levels and HbA1c are stable. Continue current insulin therapy and monitor blood sugar levels regularly. Plan follow-up with the professional driver. [facility] 4. Hypercholesterolemia Continue statin therapy for cholesterol management, review lipid panel regularly. Treatment through Cardiology 5. Hypertension Continue spironolactone managed by Nephrology Dr. Celaya along with chronic kidney disease [place] [facility] for liver cirrhosis Dr vidal endocrinology [facility] for diabetes management. Dr Duarte Nephrology: Dr Celaya Cardio : Dr Galeana Urology Dr Mora Pain managment [facility] Op[facility] Dr. Ching Podiatry Patient Instructions - Continue prescribed medications, monitoring for side effects. - Monitor blood glucose levels regularly and report any significant changes. - Attend scheduled appointments with specialists for further evaluation. - Monitor any changes in the condition of the skin, particularly after the dog scratch. Follow-up 6 months Orders: Orders Hemoglobin A1c Today D64.9 - Anemia, unspecified, E10.3599 - Type 1 diabetes mellitus with proliferative diabetic retinopathy without macular edema, unspecified eye, E10.42 - Type 1 diabetes mellitus with diabetic polyneuropathy, E10.49 - Type 1 diabetes mellitus with other diabetic neurological complication, I25.10 - Atherosclerotic heart disease of [place] coronary artery without angina pectoris, I42.6 - Alcoholic cardiomyopathy, K21.9 - Gastro-esophageal reflux di sease without esophagitis, N18.31 - Chronic kidney disease, stage 3a, N40.0 - Benign prostatic hyperplasia without lower urinary tract symptoms, Z79.4 - MCFP (current) use of insulin Complete Blood Count Auto Diff Today D64.9 - Anemia, unspecified, E10.3599 - Type 1 diabetes mellitus with proliferative diabetic retinopathy without macular edema, unspecified eye, E10.42 - Type 1 diabetes mellitus with diabetic polyneuropathy, E10.49 - Type 1 diabetes mellitus with other diabetic neurological complication, I25.10 - Atherosclerotic heart disease of [place] coronary artery without angina pectoris, I42.6 - Alcoholic cardiomyopathy, K21.9 - Gastro-esophageal reflux disease without esophagitis, N18.31 - Chronic kidney disease, stage 3a, N40.0 - Benign prostatic hyperplasia without lower urinary tract symptoms, 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 Panel Today D64.9 - Anemia, unspecified, E10.3599 - Type 1 diabetes mellitus with proliferative diabetic retinopathy without macular edema, unspecified eye, E10.42 - Type 1 diabetes mellitus with diabetic polyneuropathy, E10.49 - Type 1 diabetes mellitus with other diabetic neurological complication, I25.10 - Atherosclerotic heart disease of [place] coronary artery without angina pectoris, I42.6 - Alcoholic cardiomyopathy, K21.9 - Gastro-esophageal reflux disease without esophagitis, N18.31 - Chronic kidney disease, stage 3a, N40.0 - Benign prostatic hyperplasia without lower urinary tract symptoms, Z79.4 - MCFP (current) use of insulin Hemoglobin A1c 5 Months E10.3599 - Type 1 diabetes mellitus with proliferative diabetic retinopathy without macular edema, unspecified eye, E10.42 - Type 1 diabetes mellitus with diabetic polyneuropathy, E10.49 - Type 1 diabetes mellitus with other diabetic neurological complication, E78.9 - Disorder of lipoprotein metabolism, unspecified, I25.10 - Atherosclerotic heart disease of [place] coronary artery without angina pectoris, I42.6 - Alcoholic cardiomyopathy, K86.0 - Alcohol-induced chronic pancreatitis, N18.31 - Chronic kidney disease, stage 3a Lipid Panel 5 Months E10.3599 - Type 1 diabetes mellitus with proliferative diabetic retinopathy without macular edema, unspecified eye, E10.42 - Type 1 diabetes mellitus with diabetic polyneuropathy, E10.49 - Type 1 diabetes mellitus with other diabetic neurological complication, E78.9 - Disorder of lipoprotein metabolism, unspecified, I25.10 - Atherosclerotic heart disease of [place] coronary artery without angina pectoris, I42.6 - Alcoholic cardiomyopathy, K86.0 - Alcohol-induced chronic pancreatitis, N18.31 - Chronic kidney disease, stage 3a Complete Blood Count Auto Diff 5 Months E10.3599 - Type 1 diabetes mellitus with proliferative diabetic retinopathy without macular edema, unspecified eye, E10.42 - Type 1 diabetes mellitus with diabetic polyneuropathy, E10.49 - Type 1 diabetes mellitus with other diabetic neurological complication, E78.9 - Disorder of lipoprotein metabolism, unspecified, I25.10 - Atherosclerotic heart disease of [place] coronary artery without angina pectoris, I42.6 - Alcoholic cardiomyopathy, K86.0 - Alcohol-induced chronic pancreatitis, N18.31 - Chronic kidney disease, stage 3a Comprehensive Dennis. Panel Fast 5 Months E10.3599 - Type 1 diabetes mellitus with proliferative diabetic retinopathy without macular edema, unspecified eye, E10.42 - Type 1 diabetes mellitus with diabetic polyneuropathy, E10.49 - Type 1 diabetes mellitus with other diabetic neurological complication, E78.9 - Disorder of lipoprotein metabolism, unspecified, I25.10 - Atherosclerotic heart disease of [place] coronary artery without angina pectoris, I42.6 - Alcoholic cardiomyopathy, K86.0 - Alcohol-induced chronic pancreatitis, N18.31 - Chronic kidney disease, stage 3a Microalbumin, Random (w Creat) 5 Months E10.3599 - Type 1 diabetes mellitus with proliferative diabetic retinopathy without macular edema, unspecified eye, E10.42 - Type 1 diabetes mellitus with diabetic polyneuropathy, E10.49 - Type 1 diabetes mellitus with other diabetic neurological complication, E78.9 - Disorder of lipoprotein metabolism, unspecified, I25.10 - Atherosclerotic heart disease of [place] coronary artery without angina pectoris, I42.6 - Alcoholic cardiomyopathy, K86.0 - Alcohol-induced chronic pancreatitis, N18.31 - Chronic kidney disease, stage 3a
--- OUTSIDE RECORDS SUMMARY | 2024-11-13 10:25 | XMS_ITS | Encounter Summary ---
Author Organization [facility] Address [address] [place] [address] Phone Care Team Providers Care Bridge Opener Name Role Phone Rufino Rajput MD Primary Care Provider [phone] Reason for Visit * Reason Comments Med Refill Encounter Details Date Type Department Care Team (Late Contact Info) Description 06/06/2021 Refill [facility] [address] [place] [address] Olayinka Saldana MD Social History [...] Visit [facility] [address] [facility] [address] [place] [address] Karen Plascencia ARNP [address] [facility] [address] [place] [address] documented as of this encounter Visit Diagnoses Not on filedocumented in this encounter Care Teams Bridge Opener Relationship Specialty Start Date End Date Rufino Rajput MD [address] [place] [id number] PCP - General Internal Medicine 04/06/21 documented as of this encounter
--- OUTSIDE RECORDS SUMMARY | 2024-11-13 10:25 | XMS_ITS | Data Portability ---
Author Organization [facility], Main Office Address [address] [facility] [address] [place] [address] Care Team Providers Care Research And Development Specialist Name Role Phone GLYNN HERNÁNDEZ Primary Care Provider [phone] SATHISH BRISENO Metal Spraying Machine Operator [phone] JACKY ROUSE Pewter Finisher [phone] KATIE NAVARRO Lime Spreader KATHE FITZPATRICK Watch Train Inspector JESSICA MINAYA Contracting Manager SEBASTIEN LINK Ic Engineer Assessment No assessment recorded. Plan of Treatment Reminders Order Date Submit Date Provider Last Modified By Organization Details Last Modified Time Details Appointments None recorded. Lab hemoglobi n A1C, fingersti ck 2018 019 [email or web address] In-Office Order, Internal Use Only DO Not Attach Compendium DO Not Attach Compendium, Do Not Delete/merge, [id number] 9 16:07:07 HbA1c (hemoglob in A1c), blood 2018 019 [facility], [address], [place], [address], 9 22:21:36 HbA1c (hemoglob in A1c), blood 2018 019 [facility], [address], [place], [address], 9 22:21:53 CMP, serum or plasma 2018 019 [facility], [address], [address], [place], [address], 9 18:48:40 urinalysi s, complete 2018 019 [facility], [address], [address], [place], [address], 9 18:33:34 CBC w/ auto diff 2018 019 [facility], [address], [address], [place], [address], 9 18:49:41 HbA1c (hemoglob in A1c), blood 2018 019 [facility], [address], [address], [place], [address], 9 22:55:14 ESR (erythroc yte sedimenta tion rate), blood 2018 019 [facility], [address], [address], [place], [address], 9 20:12:23 activated partial thrombopl astin time, coagulati on assay, blood 2018 019 [facility], [address], [address], [place], [address], 9 19:34:47 PT/INR 2018 019 [facility], [address], [address], [place], [address], 9 19:44:19 CMP, serum or plasma 2018 019 [facility], [address], [address], [place], [address], 9 19:58:54 CBC w/ auto diff 2018 019 [facility], [address], [address], [place], [address], 9 19:39:56 PSA, serum or plasma 2018 019 [facility], [address], [address], [place], [address], 9 15:15:17 BMP, serum or plasma 2018 019 [facility], [address], [address], [place], [address], 9 15:27:39 CBC w/ auto diff 2018 019 [facility], [address], [address], [place], [address], 9 13:47:02 iron + total iron-bind ing capacity (TIBC), serum 2018 019 [facility], [address], [address], [place], [address], 9 16:15:02 Referral pain managemen t referral - for follow up on pt with chronic worsenign neuropath y 2018 019 [email or web address] [facility], [address] [place], [address], 9 09:41:11 diabetic ophthalmo logy referral 2018 019 KATHY Not available 9 17:39:39 gastroent erologist referral - for eval of pt with anemia and wt loss 2018 019 jeri Minaya MD, [address] [place], [address], 9 17:45:57 nutrition ist/dieti aneudy referral 2018 019 KATHY Not available 16:40:32 Procedures None recorded. Surgeries None recorded. Imaging None recorded. Medication Orders Lantus Solostar U-100 Insulin 100 unit/mL (3 mL) subcutane ous pen 2018 019 [email or web address] [facility]/Pharmacy #[id number], [address] [place] [address], [place], [address], 9 16:07:07 mirtazapi ne 30 mg tablet 2018 019 [facility]/Pharmacy #2339, [address] [place] [address], [place], [address], 9 09:37:51 venlafaxi ne ER 75 mg capsule,e xtended release 24 hr 2018 019 [facility]/Pharmacy #2339, [address] [place] [address], [address], 9 11:06:36 mirtazapi ne 15 mg tablet 2018 019 berenice [facility]/Pharmacy #2339, [address] [place] [address], [place], [address], 9 16:22:14 venlafaxi ne ER 75 mg capsule,e xtended release 24 hr 2018 019 [facility]/Pharmacy #2339, [address] [place] [address], [address], 9 11:06:36 Nitrostat 0.4 mg sublingua l tablet 2018 019 INTERFACE [facility]/Pharmacy #2339, [address] [place] [address], [place], [address], 9 10:55:03 Patient Targets Encounter Date Encounter Id Patient Goals Patient Target Last Modified By Organization Details Last Modified Time 01/03/2019 [id number] Ongoing of Microalbumin/Cre atinine Ratio yearly Not [...] By Organization Details Last Modified Time 09/19/2018 [id number] Nutrition Referral and Weight Management Follow-up Information berenice Not available 09/19/2018 10:55:01 anemia: care instructions [email or web address] Not available 09/19/2018 10:55:01 10/20/2018 [id number] Diabetic Foot Exam awychowski Not available 10/20/2018 [...] appt. berenice Not available 10/20/2018 14:49:41 11/17/2018 [id number] learning about type 2 diabetes nbarrows Not available 12/05/2018 09:37:50 type 2 diabetes: care instructions nbarrows Not available 12/05/2018 09:37:50 high blood pressure: care instructions awychowski Not available 11/17/2018 16:40:11 learning about high blood pressure awychowski Not available 11/17/2018 16:40:11 12/19/2018 [id number] depression treatment: care instructions awychowski Not available 12/19/2018 11:34:58 high blood pressure: care instructions awychowski Not available 12/19/2018 11:34:58 learning about high blood pressure awychowski Not available 12/19/2018 11:34:58 non fasting labs in 4 weeks. awychowski Not available 12/19/2018 11:34:56 01/03/2019 [id number] hypoglycemia: care instructions Not available 01/03/2019 16:07:07 Medications (OTC, herbal therapies, supplements) reviewed and reconciled with patient and or caregiver, including potential side effects, drug interactions, instructions, and the consequences of not taking medication. Reviewed potential barriers to medication adherence, such as side effects from medication or cost of medication. [email or web address] Not available 01/03/2019 14:22:39 Reason for Referral Barn Manager/dietitian Refer ral for Underweight Referring Physician: Glynn Hernández [facility], Encounter Date: 09/19/2018 Diabetic Ophthalmology Refer ral for Diabetic distal sensorimotor polyneuropathy Referring Physician: Glynn Hernández [facility], Encounter Date: 10/20/2018 Contracting Manager Referral for Anemia for eval of pt with anemia and wt loss Referring Physician: Glynn Hernández [facility], Encounter Date: 10/20/2018 Pain Management Referral for Diabetic distal sensorimotor polyneuropathy for follow up on pt with chronic worsenign neuropathy Referring Physician: Glynn Hernández [facility], Encounter Date: 11/17/2018 Results Created Date Observation Date Name Description Value Unit Range Abnormal Flag Note LastModifiedBy Organization Detail LastModifiedTime 08/22/1908/22/2018 CBC w/ auto diff WBC 8.6 K/mm3 (4.0-1 1.0) Not Available [facility] (Centralized Electronic Ordering - All Locations) Patient Can Go To The Location Of Their Choice, [id number] 08/22/2018 15:48:49 08/22/1908/22/2018 CBC w/ auto diff RBC 3.29 M/mm3 (4.70- 6.10) low Not Available [facility] (Centralized Electronic Ordering - All Locations) Patient Can Go To The Location Of Their Choice, [id number] 08/22/2018 15:48:49 08/22/1908/22/2018 CBC w/ auto diff HGB 10.7 gm/dL (13.7- 16.5) low Not Available [facility] (Centralized Electronic Ordering - All Locations) Patient Can Go To The Location Of Their Choice, 08/22/2018 15:48:49 08/22/1908/22/2018 CBC w/ auto diff HCT 33.9 % (40.5- 48.5) low Not Available [facility] (Centralized Electronic Ordering - All Locations) Patient Can Go To The Location Of Their Choice, 08/22/2018 15:48:49 08/22/1908/22/2018 CBC w/ auto diff MCV 103.0 fL (80.0- 94.0) high Not Available [facility] (Centralized Electronic Ordering - All Locations) Patient Can Go To The Location Of Their Choice, 08/22/2018 15:48:49 08/22/1908/22/2018 CBC w/ auto diff MCH 32.5 pg (27.0- 34.0) Not Available [facility] (Centralized Electronic Ordering - All Locations) Patient Can Go To The Location Of Their Choice, 08/22/2018 15:48:49 08/22/1908/22/2018 CBC w/ auto diff MCHC 31.6 g/dL (33.0- 37.0) low Not Available [facility] (Centralized Electronic Ordering - All Locations) Patient Can Go To The Location Of Their Choice, 08/22/2018 15:48:49 08/22/1908/22/2018 CBC w/ auto diff plt 221 K/mm3 (150-4 60) Not Available [facility] (Centralized Electronic Ordering - All Locations) Patient Can Go To The Location Of Their Choice, 08/22/2018 15:48:49 08/22/1908/22/2018 CBC w/ auto diff RDW-SD 47.7 fL (<47.0 ) high Not Available [facility] (Centralized Electronic Ordering - All Locations) Patient Can Go To The Location Of Their Choice, 08/22/2018 15:48:49 08/22/1908/22/2018 CBC w/ auto diff MPV 11.3 fL (9.4-1 2.4) Not Available [facility] (Centralized Electronic Ordering - All Locations) Patient Can Go To The Location Of Their Choice, 08/22/2018 15:48:49 08/22/1908/22/2018 CBC w/ auto diff automated NRBC 0.0 #/100 _WBC' s Not Available [facility] (Centralized Electronic Ordering - All Locations) Patient Can Go To The Location Of Their Choice, 08/22/2018 15:48:49 08/22/1908/22/2018 CBC w/ auto diff abs. NRBC 0.0 K/mm3 Not Available [facility] (Centralized Electronic Ordering - All Locations) Patient Can Go To The Location Of Their Choice, 08/22/2018 15:48:49 08/22/1908/22/2018 CBC w/ auto diff neut # 5.7 K/mm3 (1.3-7 .0) Not Available [facility] (Centralized Electronic Ordering - All Locations) Patient Can Go To The Location Of Their Choice, 08/22/2018 15:48:49 08/22/1908/22/2018 CBC w/ auto diff lymph # 2.0 K/mm3 (0.8-3 .1) Not Available [facility] (Centralized Electronic Ordering - All Locations) Patient Can Go To The Location Of Their Choice, 08/22/2018 15:48:49 08/22/1908/22/2018 CBC w/ auto diff mono# 0.7 K/mm3 (0.4-1 .3) Not Available [facility] (Centralized Electronic Ordering - All Locations) Patient Can Go To The Location Of Their Choice, 08/22/2018 15:48:49 08/22/1908/22/2018 CBC w/ auto diff eo # 0.1 K/mm3 (0.0-0 .4) Not Available [facility] (Centralized Electronic Ordering - All Locations) Patient Can Go To The Location Of Their Choice, 08/22/2018 15:48:49 08/22/1908/22/2018 CBC w/ auto diff baso # 0.0 K/mm3 (0.0-0 .1) Not Available [facility] (Centralized Electronic Ordering - All Locations) Patient Can Go To The Location Of Their Choice, 08/22/2018 15:48:49 08/22/1908/22/2018 CBC w/ auto diff abs. imm gran 0.1 K/mm3 Not Available [facility] (Centralized Electronic Ordering - All Locations) Patient Can Go To The Location Of Their Choice, 08/22/2018 15:48:49 08/22/1908/22/2018 CBC w/ auto diff neut 66.5 % (44-76 ) Not Available [facility] (Centralized Electronic Ordering - All Locations) Patient Can Go To The Location Of Their Choice, 08/22/2018 15:48:49 08/22/1908/22/2018 CBC w/ auto diff lymph 23.6 % (15-43 ) Not Available [facility] (Centralized Electronic Ordering - All Locations) Patient Can Go To The Location Of Their Choice, 08/22/2018 15:48:49 08/22/1908/22/2018 CBC w/ auto diff monocyte 8.0 % (4.5-1 0.5) Not Available [facility] (Centralized Electronic Ordering - All Locations) Patient Can Go To The Location Of Their Choice, 08/22/2018 15:48:49 08/22/1908/22/2018 CBC w/ auto diff eo 0.8 % (0-6) Not Available [facility] (Centralized Electronic Ordering - All Locations) Patient Can Go To The Location Of Their Choice, 08/22/2018 15:48:49 08/22/1908/22/2018 CBC w/ auto diff baso 0.5 % (0-2) Not Available [facility] (Centralized Electronic Ordering - All Locations) Patient Can Go To The Location Of Their Choice, 08/22/2018 15:48:49 08/22/1908/22/2018 CBC w/ auto diff imm gran 0.6 % (0.0-0 .6) Not Available [facility] (Centralized Electronic Ordering - All Locations) Patient Can Go To The Location Of Their Choice, 08/22/2018 15:48:49 08/22/1908/22/2018 urina lysis , compl ete appear/color YELLO W CLEAR Not Available [facility] (Centralized Electronic Ordering - All Locations) Patient Can Go To The Location Of Their Choice, 08/22/2018 16:10:56 08/22/1908/22/2018 urina lysis , compl ete sp. gravity 1.025 (1.002 -1.030 ) Not Available [facility] (Centralized Electronic Ordering - All Locations) Patient Can Go To The Location Of Their Choice, 08/22/2018 16:10:56 08/22/1908/22/2018 urina lysis , compl ete urine pH 6.0 (4.0-8 .0) Not Available [facility] (Centralized Electronic Ordering - All Locations) Patient Can Go To The Location Of Their Choice, 08/22/2018 16:10:56 08/22/1908/22/2018 urina lysis , compl ete urine albumin 1+ (neg) abnormal Not Available [facility] (Centralized Electronic Ordering - All Locations) Patient Can Go To The Location Of Their Choice, 08/22/2018 16:10:56 08/22/1908/22/2018 urina lysis , compl ete urine glucose 3+ (neg) abnormal Not Available [facility] (Centralized Electronic Ordering - All Locations) Patient Can Go To The Location Of Their Choice, 08/22/2018 16:10:56 08/22/1908/22/2018 urina lysis , compl ete urine ketones NEGATI VE (neg) Not Available [facility] (Centralized Electronic Ordering - All Locations) Patient Can Go To The Location Of Their Choice, 08/22/2018 16:10:56 08/22/1908/22/2018 urina lysis , compl ete urine bilirubin NEGATI VE (neg) Not Available [facility] (Centralized Electronic Ordering - All Locations) Patient Can Go To The Location Of Their Choice, 08/22/2018 16:10:56 08/22/1908/22/2018 urina lysis , compl ete urine hemoglobn NEGATI VE (neg) Not Available [facility] (Centralized Electronic Ordering - All Locations) Patient Can Go To The Location Of Their Choice, 08/22/2018 16:10:56 08/22/1908/22/2018 urina lysis , compl ete urine nitrite NEGATI VE (neg) Not Available [facility] (Centralized Electronic Ordering - All Locations) Patient Can Go To The Location Of Their Choice, 08/22/2018 16:10:56 08/22/1908/22/2018 urina lysis , compl ete urine leukocyte NEGATI VE (neg) Not Available [facility] (Centralized Electronic Ordering - All Locations) Patient Can Go To The Location Of Their Choice, 08/22/2018 16:10:56 08/22/1908/22/2018 urina lysis , compl ete urobilinogen NORMAL mg/dL (norm) Not Available [facility] ([facility] Ordering - All Locations) Patient Can Go To The Location Of Their Choice, 08/22/2018 16:10:56 08/22/1908/22/2018 urina lysis , compl ete urine WBC's 1 /hpf (0-5) Not Available [facility] (Centralized [facility] Ordering - All Locations) Patient Can Go To The Location Of Their Choice, 08/22/2018 16:10:56 08/22/1908/22/2018 urina lysis , compl ete urine RBC's <1 /hpf (<3) Not Available [facility] (Centralized Electronic Ordering - All Locations) Patient Can Go To The Location Of Their Choice, 08/22/2018 16:10:56 08/22/1908/22/2018 urina lysis , compl ete bacteria SLIGHT hpf (neg) abnormal Not Available [facility] (Centralized Electronic Ordering - All Locations) Patient Can Go To The Location Of Their Choice, 08/22/2018 16:10:56 08/22/1908/22/2018 urina lysis , compl ete squamous epith <1 /hpf Not Available [facility] (Centralized Electronic Ordering - All Locations) Patient Can Go To The Location Of Their Choice, 08/22/2018 16:10:56 08/22/1908/22/2018 urina lysis , compl ete hyaline cast 2 lpf (0-2) Not Available [facility] (Centralized Electronic Ordering - All Locations) Patient Can Go To The Location Of Their Choice, 08/22/2018 16:10:56 08/22/1908/22/2018 micro album in, urine micro-albumi n <6.0 mg/L (0-20) Not Available [facility] (Centralized Electronic Ordering - All Locations) Patient Can Go To The Location Of Their Choice, 08/22/2018 17:17:43 08/22/1908/22/2018 micro album in, urine malb/creat ratio <3.6 mg/gm (0-20) Micro album in less than detec tion limit , ratio estim ated using micro album in equal to 6.0 mg/L. Not Available [facility] (Centralized Electronic Ordering - All Locations) Patient Can Go To The Location Of Their Choice, 08/22/2018 17:17:43 08/22/1908/22/2018 micro album in, urine urine creat for micro albumin 168.2 mg/dL Not Available [facility] (Centralized Electronic Ordering - All Locations) Patient Can Go To The Location Of Their Choice, 08/22/2018 17:17:43 08/22/1908/22/2018 amyla se, serum or plasm a amylase 59 U/L (28-10 0) Not Available [facility] (Centralized Electronic Ordering - All Locations) Patient Can Go To The Location Of Their Choice, 08/22/2018 17:48:43 08/22/1908/22/2018 lipas e, serum or plasm a lipase 9 U/L (13-60 ) low Not Available [facility] (Centralized Electronic Ordering - All Locations) Patient Can Go To The Location Of Their Choice, 08/22/2018 17:48:44 08/22/1908/22/2018 lipid panel , serum cholesterol, total 133 mg/dL (<200) Not Available [facility] (Centralized Electronic Ordering - All Locations) Patient Can Go To The Location Of Their Choice, 08/22/2018 17:48:45 08/22/1908/22/2018 lipid panel , serum triglyceride 126 mg/dL (<150) Not Available [facility] ([facility] Ordering - All Locations) Patient Can Go To The Location Of Their Choice, 08/22/2018 17:48:45 08/22/1908/22/2018 lipid panel , serum HDL chol 79 mg/dL (>39) Not Available [facility] (Centralized Electronic Ordering - All Locations) Patient Can Go To The Location Of Their Choice, 08/22/2018 17:48:45 08/22/1908/22/2018 lipid panel , serum LDL cholesterol, calculated 29 mg/dL (0-130 ) Not Available [facility] (Centralized Electronic Ordering - All Locations) Patient Can Go To The Location Of Their Choice, 08/22/2018 17:48:45 08/22/1908/22/2018 lipid panel , serum non HDL cholesterol (calc) 54 mg/dL (<160) Not Available [facility] (Centralized Electronic Ordering - All Locations) Patient Can Go To The Location Of Their Choice, 08/22/2018 17:48:45 08/22/1908/22/2018 preal bumin , serum prealbumin 22.8 mg/dL (20-40 ) Not Available [facility] (Centralized Electronic Ordering - All Locations) Patient Can Go To The Location Of Their Choice, 08/22/2018 17:48:46 08/22/1908/22/2018 TSH, serum or plasm a TSH 1.28 mIU/m L (0.40- 4.00) Not Available [facility] (Centralized Electronic Ordering - All Locations) Patient Can Go To The Location Of Their Choice, 08/22/2018 17:53:49 08/22/1908/22/2018 vitam in B12, serum vitamin B12 916 pg/mL (232-1 245) As of 2017 vitam in B12 assay formu balbir n has been modif ied. As a resul t, the new refer ence range is (232- 1245 pg/mL ). Not Available [facility] (Centralized Electronic Ordering - All Locations) Patient Can Go To The Location Of Their Choice, 08/22/2018 18:00:45 09/19/1909/19/2018 CBC w/ auto diff WBC 7.5 K/mm3 (4.0-1 1.0) Not Available [facility] (Centralized Electronic Ordering - All Locations) Patient Can Go To The Location Of Their Choice, 09/19/2018 13:47:02 09/19/1909/19/2018 CBC w/ auto diff RBC 3.53 M/mm3 (4.70- 6.10) low Not Available [facility] (Centralized Electronic Ordering - All Locations) Patient Can Go To The Location Of Their Choice, 09/19/2018 13:47:02 09/19/1909/19/2018 CBC w/ auto diff HGB 11.7 gm/dL (13.7- 16.5) low Not Available [facility] (Centralized Electronic Ordering - All Locations) Patient Can Go To The Location Of Their Choice, 09/19/2018 13:47:02 09/19/1909/19/2018 CBC w/ auto diff HCT 34.7 % (40.5- 48.5) low Not Available [facility] (Centralized Electronic Ordering - All Locations) Patient Can Go To The Location Of Their Choice, 09/19/2018 13:47:02 09/19/1909/19/2018 CBC w/ auto diff MCV 98.3 fL (80.0- 94.0) high Not Available [facility] (Centralized Electronic Ordering - All Locations) Patient Can Go To The Location Of Their Choice, 09/19/2018 13:47:02 09/19/1909/19/2018 CBC w/ auto diff MCH 33.1 pg (27.0- 34.0) Not Available [facility] (Centralized Electronic Ordering - All Locations) Patient Can Go To The Location Of Their Choice, 09/19/2018 13:47:02 09/19/1909/19/2018 CBC w/ auto diff MCHC 33.7 g/dL (33.0- 37.0) Not Available [facility] (Centralized Electronic Ordering - All Locations) Patient Can Go To The Location Of Their Choice, 09/19/2018 13:47:02 09/19/1909/19/2018 CBC w/ auto diff plt 250 K/mm3 (150-4 60) Not Available [facility] (Centralized Electronic Ordering - All Locations) Patient Can Go To The Location Of Their Choice, 09/19/2018 13:47:02 09/19/1909/19/2018 CBC w/ auto diff RDW-SD 46.1 fL (<47.0 ) Not Available [facility] (Centralized Electronic Ordering - All Locations) Patient Can Go To The Location Of Their Choice, 09/19/2018 13:47:02 09/19/1909/19/2018 CBC w/ auto diff MPV 11.1 fL (9.4-1 2.4) Not Available [facility] (Centralized Electronic Ordering - All Locations) Patient Can Go To The Location Of Their Choice, 09/19/2018 13:47:02 09/19/1909/19/2018 CBC w/ auto diff automated NRBC 0.0 #/100 _WBC' s Not Available [facility] (Centralized Electronic Ordering - All Locations) Patient Can Go To The Location Of Their Choice, 09/19/2018 13:47:02 09/19/19 19 09/19/2018 CBC w/ auto diff abs. NRBC 0.0 K/mm3 Not Available [facility] (Centralized Electronic Ordering - All Locations) Patient Can Go To The Location Of Their Choice, 09/19/2018 13:47:02 09/19/1909/19/2018 PSA, serum or plasm a PSA 1.4 NG/mL (0-4) TEST PERFO RMED USING THE VETO ELECT [facility] CENCE TOTAL PSA ASSAY . PSA VALUE S OBTAI DARYN WITH OTHER ASSAY METHO DS OR KITS CANNO T BE USED INTER WILL EABLY . Not Available [facility] (Centralized Electronic Ordering - All Locations) Patient Can Go To The Location Of Their Choice, 09/19/2018 15:15:17 09/19/1909/19/2018 BMP, serum or plasm a glucose 498 mg/dL (70-99 ) high Not Available [facility] (Centralized Electronic Ordering - All Locations) Patient Can Go To The Location Of Their Choice, 09/19/2018 15:27:39 09/19/1909/19/2018 BMP, serum or plasm a BUN 14 mg/dL (8-23) Not Available [facility] (Centralized Electronic Ordering - All Locations) Patient Can Go To The Location Of Their Choice, 09/19/2018 15:27:39 09/19/1909/19/2018 BMP, serum or plasm a creatinine 1.6 mg/dL (0.7-1 .2) high Not Available [facility] (Centralized Electronic Ordering - All Locations) Patient Can Go To The Location Of Their Choice, 09/19/2018 15:27:39 09/19/1909/19/2018 BMP, serum or plasm a sodium 129 mmol/ L (133-1 45) low Not Available [facility] (Centralized Electronic Ordering - All Locations) Patient Can Go To The Location Of Their Choice, 09/19/2018 15:27:39 09/19/1909/19/2018 BMP, serum or plasm a potassium 4.0 mmol/ L (3.6-5 .2) Not Available [facility] (Centralized Electronic Ordering - All Locations) Patient Can Go To The Location Of Their Choice, 09/19/2018 15:27:39 09/19/19 19 09/19/2018 BMP, serum or plasm a chloride 86 mmol/ L (98-10 7) low Not Available [facility] (Centralized Electronic Ordering - All Locations) Patient Can Go To The Location Of Their Choice, 09/19/2018 15:27:39 09/19/19 19 09/19/2018 BMP, serum or plasm a bicarbonate 29 mmol/ L (22-29 ) Not Available [facility] (Centralized Electronic Ordering - All Locations) Patient Can Go To The Location Of Their Choice, 09/19/2018 15:27:39 09/19/19 19 09/19/2018 BMP, serum or plasm a anion gap 14 (4-17) Not Available [facility] (Centralized Electronic Ordering - All Locations) Patient Can Go To The Location Of Their Choice, 09/19/2018 15:27:39 09/19/1909/19/2018 BMP, serum or plasm a calcium 9.4 mg/dL (8.6-1 0.5) Not Available [facility] (Centralized Electronic Ordering - All Locations) Patient Can Go To The Location Of Their Choice, 09/19/2018 15:27:39 09/19/1909/19/2018 BMP, serum or plasm [...] [employer]. Not Available [facility] (Centralized Electronic Ordering - All Locations) Patient Can Go To The Location Of Their Choice, 09/19/2018 15:27:39 09/19/1909/19/2018 BMP, serum or plasm a est GFR 53 mL/mi n/1.7 3_M2 Creat inine based estim ated jostin pires filtr ation rate (eGFR ) is calcu [...] [employer]. Not Available [facility] (Centralized Electronic Ordering - All Locations) Patient Can Go To The Location Of Their Choice, 09/19/2018 15:27:39 09/19/1909/19/2018 iron + total iron- alaina ng capac ity (TIBC ), serum iron 149 mcg/d L (45-16 0) Not Available [facility] (Centralized Electronic Ordering - All Locations) Patient Can Go To The Location Of Their Choice, 09/19/2018 16:15:02 09/19/1909/19/2018 iron + total iron- alaina ng capac ity (TIBC ), serum unsaturated iron binding capac 78 mcg/d L (110-3 70) low Not Available [facility] (Centralized Electronic Ordering - All Locations) Patient Can Go To The Location Of Their Choice, 09/19/2018 16:15:02 09/19/19 19 09/19/2018 iron + total iron- alaina ng capac ity (TIBC ), serum est T. iron bind capacity 227 mcg/d L (155-5 30) Not Available [facility] (Centralized Electronic Ordering - All Locations) Patient Can Go To The Location Of Their Choice, 09/19/2018 16:15:02 09/19/1909/19/2018 iron + total iron- alaina ng capac ity (TIBC ), serum % iron saturation 66 % (20-55 ) high Not Available [facility] (Centralized Electronic Ordering - All Locations) Patient Can Go To The Location Of Their Choice, 09/19/2018 16:15:02 10/21/1910/20/2018 activ ated parti al throm bopla stin time, coagu latio n assay , blood APTT 26.5 sec (24.3- 33.1) Not Available [facility] (Centralized Electronic Ordering - All Locations) Patient Can Go To The Location Of Their Choice, 10/20/2018 19:34:47 10/21/1910/20/2018 CBC w/ auto diff WBC 6.9 K/mm3 (4.0-1 1.0) Not Available [facility] (Centralized Electronic Ordering - All Locations) Patient Can Go To The Location Of Their Choice, 10/20/2018 19:39:56 10/21/1910/20/2018 CBC w/ auto diff RBC 2.95 M/mm3 (4.70- 6.10) low Not Available [facility] (Centralized Electronic Ordering - All Locations) Patient Can Go To The Location Of Their Choice, 10/20/2018 19:39:56 10/21/1910/20/2018 CBC w/ auto diff HGB 9.9 gm/dL (13.7- 16.5) low Not Available [facility] (Centralized Electronic Ordering - All Locations) Patient Can Go To The Location Of Their Choice, 10/20/2018 19:39:56 10/21/1910/20/2018 CBC w/ auto diff HCT 31.8 % (40.5- 48.5) low Not Available [facility] (Centralized Electronic Ordering - All Locations) Patient Can Go To The Location Of Their Choice, 10/20/2018 19:39:56 10/21/1910/20/2018 CBC w/ auto diff MCV 107.8 fL (80.0- 94.0) high Not Available [facility] (Centralized Electronic Ordering - All Locations) Patient Can Go To The Location Of Their Choice, 10/20/2018 19:39:56 10/21/1910/20/2018 CBC w/ auto diff MCH 33.6 pg (27.0- 34.0) Not Available [facility] (Centralized Electronic Ordering - All Locations) Patient Can Go To The Location Of Their Choice, 10/20/2018 19:39:56 10/21/1910/20/2018 CBC w/ auto diff MCHC 31.1 g/dL (33.0- 37.0) low Not Available [facility] (Centralized Electronic Ordering - All Locations) Patient Can Go To The Location Of Their Choice, 10/20/2018 19:39:56 10/21/1910/20/2018 CBC w/ auto diff plt 213 K/mm3 (150-4 60) Not Available [facility] (Centralized Electronic Ordering - All Locations) Patient Can Go To The Location Of Their Choice, 10/20/2018 19:39:56 10/21/1910/20/2018 CBC w/ auto diff RDW-SD 56.2 fL (<47.0 ) high Not Available [facility] (Centralized Electronic Ordering - All Locations) Patient Can Go To The Location Of Their Choice, 10/20/2018 19:39:56 10/21/1910/20/2018 CBC w/ auto diff MPV 10.6 fL (9.4-1 2.4) Not Available [facility] (Centralized Electronic Ordering - All Locations) Patient Can Go To The Location Of Their Choice, 10/20/2018 19:39:56 10/21/1910/20/2018 CBC w/ auto diff automated NRBC 0.0 #/100 _WBC' s Not Available [facility] (Centralized Electronic Ordering - All Locations) Patient Can Go To The Location Of Their Choice, 10/20/2018 19:39:56 10/21/1910/20/2018 CBC w/ auto diff abs. NRBC 0.0 K/mm3 Not Available [facility] (Centralized Electronic Ordering - All Locations) Patient Can Go To The Location Of Their Choice, 10/20/2018 19:39:56 10/21/1910/20/2018 PT/IN R protime 10.5 sec (9.7-1 2.2) Not Available [facility] (Centralized Electronic Ordering - All Locations) Patient Can Go To The Location Of Their Choice, 10/20/2018 19:44:19 10/21/1910/20/2018 PT/IN R internatnl normalized ratio 1.0 (0.9-1 [...] HETIC HEART VALVE S. Not Available [facility] (Centralized Electronic Ordering - All Locations) Patient Can Go To The Location Of Their Choice, 10/20/2018 19:44:19 10/21/1910/20/2018 CMP, serum or plasm a glucose 267 mg/dL (70-99 ) high Not Available [facility] (Centralized Electronic Ordering - All Locations) Patient Can Go To The Location Of Their Choice, 10/20/2018 19:58:54 10/21/1910/20/2018 CMP, serum or plasm a BUN 13 mg/dL (8-23) Not Available [facility] (Centralized Electronic Ordering - All Locations) Patient Can Go To The Location Of Their Choice, 10/20/2018 19:58:54 10/21/1910/20/2018 CMP, serum or plasm a creatinine 1.4 mg/dL (0.7-1 .2) high Not Available [facility] (Centralized Electronic Ordering - All Locations) Patient Can Go To The Location Of Their Choice, 10/20/2018 19:58:54 10/21/1910/20/2018 CMP, serum or plasm a sodium 138 mmol/ L (133-1 45) Not Available [facility] (Centralized Electronic Ordering - All Locations) Patient Can Go To The Location Of Their Choice, 10/20/2018 19:58:54 10/21/1910/20/2018 CMP, serum or plasm a potassium 5.3 mmol/ L (3.6-5 .2) high Not Available [facility] (Centralized Electronic Ordering - All Locations) Patient Can Go To The Location Of Their Choice, 10/20/2018 19:58:54 10/21/1910/20/2018 CMP, serum or plasm a chloride 104 mmol/ L (98-10 7) Not Available [facility] (Centralized Electronic Ordering - All Locations) Patient Can Go To The Location Of Their Choice, 10/20/2018 19:58:54 10/21/1910/20/2018 CMP, serum or plasm a bicarbonate 25 mmol/ L (22-29 ) Not Available [facility] (Centralized Electronic Ordering - All Locations) Patient Can Go To The Location Of Their Choice, 10/20/2018 19:58:54 10/21/1910/20/2018 CMP, serum or plasm a anion gap 9 (4-17) Not Available [facility] (Centralized Electronic Ordering - All Locations) Patient Can Go To The Location Of Their Choice, 10/20/2018 19:58:54 10/21/1910/20/2018 CMP, serum or plasm a albumin 3.7 gm/dL (3.4-4 .8) Not Available [facility] (Centralized Electronic Ordering - All Locations) Patient Can Go To The Location Of Their Choice, 10/20/2018 19:58:54 10/21/1910/20/2018 CMP, serum or plasm a calcium 8.7 mg/dL (8.6-1 0.5) Not Available [facility] (Centralized Electronic Ordering - All Locations) Patient Can Go To The Location Of Their Choice, 10/20/2018 19:58:54 10/21/1910/20/2018 CMP, serum or plasm a bilirubin,to srinivas 0.2 mg/dL (0-1.2 ) Not Available [facility] (Centralized Electronic Ordering - All Locations) Patient Can Go To The Location Of Their Choice, 10/20/2018 19:58:54 10/21/1910/20/2018 CMP, serum or plasm a total protein 6.1 gm/dL (6.2-8 .2) low Not Available [facility] (Centralized Electronic Ordering - All Locations) Patient Can Go To The Location Of Their Choice, 10/20/2018 19:58:54 10/21/1910/20/2018 CMP, serum or plasm a Ag ratio 1.5 Not Available [facility] (Centralized Electronic Ordering - All Locations) Patient Can Go To The Location Of Their Choice, 10/20/2018 19:58:54 10/21/1910/20/2018 CMP, serum or plasm a AST 27 U/L (0-38) Not Available [facility] (Centralized Electronic Ordering - All Locations) Patient Can Go To The Location Of Their Choice, 10/20/2018 19:58:54 10/21/1910/20/2018 CMP, serum or plasm a alk phos 59 U/L (40-12 9) Not Available [facility] (Centralized Electronic Ordering - All Locations) Patient Can Go To The Location Of Their Choice, 10/20/2018 19:58:54 10/21/1910/20/2018 CMP, serum or plasm a ALT 27 U/L (0-41) Not Available [facility] (Centralized Electronic Ordering - All Locations) Patient Can Go To The Location Of Their Choice, 10/20/2018 19:58:54 10/21/1910/20/2018 CMP, serum or plasm [...] [employer]. Not Available [facility] (Centralized Electronic Ordering - All Locations) Patient Can Go To The Location Of Their Choice, 10/20/2018 19:58:54 10/21/1910/20/2018 CMP, serum or plasm [...] [employer]. Not Available [facility] (Centralized Electronic Ordering - All Locations) Patient Can Go To The Location Of Their Choice, 10/20/2018 19:58:54 10/21/1910/20/2018 ESR (eryt hrocy te [...] in these patie nts. Not Available [facility] (Centralized Electronic Ordering - All Locations) Patient Can Go To The Location Of Their Choice, [id number] 10/20/2018 20:12:23 10/21/1910/20/2018 HbA1c (hemo globi n A1c), blood hemoglobin [...] in Hb A1c (%). Not Available [facility] (Centralized Electronic Ordering - All Locations) Patient Can Go To The Location Of Their Choice, [id number] 10/20/2018 22:55:14 11/24/1911/23/2018 CBC w/ auto diff WBC 5.9 Not Available Not Availa ble 12/25/2018 15:55:47 11/24/1911/23/2018 CBC w/ auto diff RBC 3.59 Not Available Not Availa ble 12/25/2018 15:55:47 11/24/1911/23/2018 CBC w/ auto diff HGB 11.8 Not Available Not Availa ble 12/25/2018 15:55:47 11/24/19 19 11/23/2018 CBC w/ auto diff HCT 38.9 Not Available Not Availa ble 12/25/2018 15:55:47 11/24/1911/23/2018 CBC w/ auto diff plt 195 Not Available Not Availa ble 12/25/2018 15:55:47 01/04/20 19 01/03/2019 urina lysis , compl ete appear/color YELLO W CLEAR Not Available [facility] (Centralized Electronic Ordering - All Locations) Patient Can Go To The Location Of Their Choice, [facility] 01/03/2019 18:33:34 01/04/2001/03/2019 urina lysis , compl ete sp. gravity 1.018 (1.002 -1.030 ) Not Available [facility] (Centralized Electronic Ordering - All Locations) Patient Can Go To The Location Of Their Choice, [id number] 01/03/2019 18:33:34 01/04/2001/03/2019 urina lysis , compl ete urine pH 5.0 (5.0-8 .0) Not Available [facility] (Centralized Electronic Ordering - All Locations) Patient Can Go To The Location Of Their Choice, [facility] 01/03/2019 18:33:34 01/04/2001/03/2019 urina lysis , compl ete urine albumin 1+ (neg) abnormal Not Available [facility] ([facility] Order[facility] - All Locations) Patient Can Go To The Location Of Their Choice, [facility] 01/03/2019 18:33:34 01/04/2001/03/2019 urina lysis , compl ete urine glucose 2+ (neg) abnormal Not Available [facility] ([facility] Ordering - All Locations) Patient Can Go To The Location Of Their Choice, [facility] 01/03/2019 18:33:34 01/04/2001/03/2019 urina lysis , compl ete urine ketones NEGATI VE (neg) Not Available [facility] (Centralized Electronic Ordering - All Locations) Patient Can Go To The Location Of Their Choice, [id number] 01/03/2019 18:33:34 01/04/2001/03/2019 urina lysis , compl ete urine bilirubin NEGATI VE (neg) Not Available [facility] (Centralized Electronic Ordering - All Locations) Patient Can Go To The Location Of Their Choice, [facility] [place] 01/03/2019 18:33:34 01/04/2001/03/2019 urina lysis , compl ete urine hemoglobin NEGATI VE (neg) Not Available [facility] (Centralized Electronic Ordering - All Locations) Patient Can Go To The Location Of Their Choice, [id number] 01/03/2019 18:33:34 01/04/2001/03/2019 urina lysis , compl ete urine nitrite NEGATI VE (neg) Not Available [facility] (Centralized Electronic Ordering - All Locations) Patient Can Go To The Location Of Their Choice, [id number] 01/03/2019 18:33:34 01/04/20 19 01/03/2019 urina lysis , compl ete urine leukocyte NEGATI VE (neg) Not Available [facility] (Centralized Electronic Ordering - All Locations) Patient Can Go To The Location Of Their Choice, [id number] 01/03/2019 18:33:34 01/04/20 19 01/03/2019 urina lysis , compl ete urobilinogen NORMAL mg/dL (norm) Not Available [facility] ([facility] Order[facility] - [facility] Locations) Patient Can Go To The Location Of Their Choice, [id number] 01/03/2019 18:33:34 01/04/20 19 01/03/2019 urina lysis , compl ete urine WBC's 1 /hpf (0-5) Not Available [facility] ([facility] Ordering - All Locations) Patient Can Go To The Location Of Their Choice, [id number] 01/03/2019 18:33:34 01/04/2001/03/2019 urina lysis , compl ete urine RBC's 2 /hpf (<3) Not Available [facility] ([facility] Ordering - All Locations) Patient Can Go To The Location Of Their Choice, [id number] 01/03/2019 18:33:34 01/04/2001/03/2019 urina lysis , compl ete mucus SLIGHT /lpf Not Available [facility] (Centralized Electronic Ordering - All Locations) Patient Can Go To The Location Of Their Choice, [id number] 01/03/2019 18:33:34 01/04/20 19 01/03/2019 CMP, serum or plasm a glucose 134 mg/dL (70-99 ) high Not Available [facility] (Centralized Electronic Ordering - All Locations) Patient Can Go To The Location Of Their Choice, [id number] 01/03/2019 18:48:40 01/04/20 19 01/03/2019 CMP, serum or plasm a BUN 20 mg/dL (8-23) Not Available [facility] (Centralized Electronic Ordering - All Locations) Patient Can Go To The Location Of Their Choice, 01/03/2019 18:48:40 01/04/2001/03/2019 CMP, serum or plasm a creatinine 1.5 mg/dL (0.7-1 .2) high Not Available [facility] (Centralized Electronic Ordering - All Locations) Patient Can Go To The Location Of Their Choice, 01/03/2019 18:48:40 01/04/2001/03/2019 CMP, serum or plasm a sodium 140 mmol/ L (133-1 45) Not Available [facility] (Centralized Electronic Ordering - All Locations) Patient Can Go To The Location Of Their Choice, 01/03/2019 18:48:40 01/04/2001/03/2019 CMP, serum or plasm a potassium 5.1 mmol/ L (3.6-5 .2) Not Available [facility] (Centralized Electronic Ordering - All Locations) Patient Can Go To The Location Of Their Choice, 01/03/2019 18:48:40 01/04/2001/03/2019 CMP, serum or plasm a chloride 108 mmol/ L (98-10 7) high Not Available [facility] (Centralized Electronic Ordering - All Locations) Patient Can Go To The Location Of Their Choice, 01/03/2019 18:48:40 01/04/2001/03/2019 CMP, serum or plasm a bicarbonate 26 mmol/ L (22-29 ) Not Available [facility] (Centralized Electronic Ordering - All Locations) Patient Can Go To The Location Of Their Choice, 01/03/2019 18:48:40 01/04/2001/03/2019 CMP, serum or plasm a anion gap 6 (4-17) Not Available [facility] (Centralized Electronic Ordering - All Locations) Patient Can Go To The Location Of Their Choice, 01/03/2019 18:48:40 01/04/2001/03/2019 CMP, serum or plasm a albumin 4.0 gm/dL (3.4-4 .8) Not Available [facility] (Centralized Electronic Ordering - All Locations) Patient Can Go To The Location Of Their Choice, 01/03/2019 18:48:40 01/04/2001/03/2019 CMP, serum or plasm a calcium 9.0 mg/dL (8.6-1 0.5) Not Available [facility] (Centralized Electronic Ordering - All Locations) Patient Can Go To The Location Of Their Choice, 01/03/2019 18:48:40 01/04/2001/03/2019 CMP, serum or plasm a bilirubin,to srinivas 0.2 mg/dL (0-1.2 ) Not Available [facility] (Centralized Electronic Ordering - All Locations) Patient Can Go To The Location Of Their Choice, 01/03/2019 18:48:40 01/04/2001/03/2019 CMP, serum or plasm a total protein 6.3 gm/dL (6.2-8 .2) Not Available [facility] (Centralized Electronic Ordering - All Locations) Patient Can Go To The Location Of Their Choice, 01/03/2019 18:48:40 01/04/2001/03/2019 CMP, serum or plasm a Ag ratio 1.7 Not Available [facility] (Centralized Electronic Ordering - All Locations) Patient Can Go To The Location Of Their Choice, 01/03/2019 18:48:40 01/04/2001/03/2019 CMP, serum or plasm a AST 28 U/L (0-38) Not Available [facility] (Centralized Electronic Ordering - All Locations) Patient Can Go To The Location Of Their Choice, 01/03/2019 18:48:40 01/04/2001/03/2019 CMP, serum or plasm a alk phos 75 U/L (40-12 9) Not Available [facility] (Centralized Electronic Ordering - All Locations) Patient Can Go To The Location Of Their Choice, 01/03/2019 18:48:40 01/04/2001/03/2019 CMP, serum or plasm a ALT 23 U/L (0-41) Not Available [facility] (Centralized Electronic Ordering - All Locations) Patient Can Go To The Location Of Their Choice, 01/03/2019 18:48:40 01/04/2001/03/2019 CMP, serum or plasm a est GFR [...] [employer]. Not Available [facility] (Centralized Electronic Ordering - All Locations) Patient Can Go To The Location Of Their Choice, 01/03/2019 18:48:40 01/04/2001/03/2019 CMP, serum or plasm a est GFR [...] [employer]. Not Available [facility] (Centralized Electronic Ordering - All Locations) Patient Can Go To The Location Of Their Choice, 01/03/2019 18:48:40 01/04/2001/03/2019 CBC w/ auto diff WBC 6.6 K/mm3 (4.0-1 1.0) Not Available [facility] ([facility]ized Electronic Ordering - All Locations) Patient Can Go To The Location Of Their Choice, 01/03/2019 18:49:41 01/04/2001/03/2019 CBC w/ auto diff RBC 3.56 M/mm3 (4.70- 6.10) low Not Available [facility] (Centralized Electronic Ordering - All Locations) Patient Can Go To The Location Of Their Choice, 01/03/2019 18:49:41 01/04/2001/03/2019 CBC w/ auto diff HGB 11.8 gm/dL (13.7- 17.1) low Not Available [facility] (Centralized Electronic Ordering - All Locations) Patient Can Go To The Location Of Their Choice, 01/03/2019 18:49:41 01/04/2001/03/2019 CBC w/ auto diff HCT 36.2 % (40.5- 50.0) low Not Available [facility] ([facility]ized Electronic Ordering - All Locations) Patient Can Go To The Location Of Their Choice, 01/03/2019 18:49:41 01/04/2001/03/2019 CBC w/ auto diff MCV 101.7 fL (80.0- 94.0) high Not Available [facility] ([facility]ized Electronic Ordering - All Locations) Patient Can Go To The Location Of Their Choice, 01/03/2019 18:49:41 01/04/2001/03/2019 CBC w/ auto diff MCH 33.1 pg (27.0- 34.0) Not Available [facility] ([facility]ized Electronic Ordering - All Locations) Patient Can Go To The Location Of Their Choice, 01/03/2019 18:49:41 01/04/2001/03/2019 CBC w/ auto diff MCHC 32.6 g/dL (33.0- 37.0) low Not Available [facility] ([facility]ized Electronic Ordering - All Locations) Patient Can Go To The Location Of Their Choice, 01/03/2019 18:49:41 01/04/2001/03/2019 CBC w/ auto diff plt 168 K/mm3 (150-4 60) Not Available [facility] ([facility]ized Electronic Ordering - All Locations) Patient Can Go To The Location Of Their Choice, 01/03/2019 18:49:41 01/04/2001/03/2019 CBC w/ auto diff RDW-SD 45.4 fL (<47.0 ) Not Available [facility] ([facility]ized Electronic Ordering - All Locations) Patient Can Go To The Location Of Their Choice, 01/03/2019 18:49:41 01/04/2001/03/2019 CBC w/ auto diff MPV 10.8 fL (9.4-1 2.4) Not Available [facility] (Centralized Electronic Ordering - All Locations) Patient Can Go To The Location Of Their Choice, 01/03/2019 18:49:41 01/04/2001/03/2019 CBC w/ auto diff automated NRBC 0.0 #/100 _WBC' s Not Available [facility] ([facility]ized Electronic Ordering - All Locations) Patient Can Go To The Location Of Their Choice, [id number] 01/03/2019 18:49:41 01/04/2001/03/2019 CBC w/ auto diff abs. NRBC 0.0 K/mm3 Not Available [facility] ([facility]ized Electronic Ordering - All Locations) Patient Can Go To The Location Of Their Choice, [id number] 01/03/2019 18:49:41 01/04/2001/03/2019 HbA1c (hemo globi n A1c), blood hemoglobin [...] in Hb A1c (%). Not Available [facility] ([facility]ized Electronic Ordering - All Locations) Patient Can Go To The Location Of Their Choice, [id number] 01/03/2019 22:21:36 01/04/2001/03/2019 HbA1c (hemo globi n A1c), blood hemoglobin [...] in Hb A1c (%). Not Available [facility] ([facility] Ordering - All Locations) Patient Can Go To The Location Of Their Choice, [id number] 01/03/2019 22:21:53 01/04/2001/03/2019 hemog lobin A1C, finge rstic k HbA1c 6.7% Not Available In-Office Order Internal Use Only DO Not Attach Compendium DO Not Attach Compendium, Do Not Delete/merge, [id number] 01/03/2019 14:43:15 09/08/19 19 09/08/2018 XR, chest [...] I agree with this report . WSN: [id number] Dictat ed By: Sherwin Malcolm MD Dictat ed Date/T gerri: 11:08 a Review ed By: Nohemy CONKLIN, Henry Kiran Signed By: Henry Slater MD Signed Date/T gerri: 11:13 am Transc ribed By: ANNY Transc ribed Date/T gerri: 10:39 am Patien t Class: Outpat ient [facility] (Outpt Imaging) [address] [place], [address], 09/19/2018 10:45:52 09/14/19 19 09/14/2018 US, abdom [...] nal aorta measur ing 1.8 cm. WSN: [id number] Dictat ed By: Vy Duque MD Dictat ed Date/T gerri: 9:01 am Review ed By: Vy Duque MD Signed By: Vy Duque MD Signed Date/T gerri: 9:01 am Transc ribed By: ANNY Transc ribed Date/T gerri: 8:58 am Patien t Class: Outpat ient [facility] (Outpt Imaging) [address], [place], [address], 09/19/2018 10:45:52 09/30/19 19 09/27/2018 regad enoso n stres s test (PROC ) No observ ation record ed. [facility] Card[facility] Diagnostic Testing [address], [place], [address], 10/20/2018 14:22:03 11/09/19 19 11/08/2018 CT, chest [...] at the head of pancre as. WSN: [id number] Dictat ed By: Elise Srinivasan MD Dictat ed Date/T gerri: 3:47 pm Review ed By: Elise Srinivasan MD Signed By: Elise Srinivasan MD Signed Date/T gerri: 3:47 pm Transc ribed By: ANNY Transc ribed Date/T gerri: 3:29 pm Patien t Class: Outpat ient [facility] (Outpt Imaging) [address] [place], [address], 11/17/2018 16:12:28 12/14/19 20 12/11/2019 trans -thor acic echoc ardio gram (TTE) (PROC ) No observ ation record ed. [facility] Card[facility] [address] [facility], [place], [address], 12/17/2019 22:16:50 Result Notes None recorded. Problems Name Problem SNOMED Code Status Onset Date Resolution Date Notes Provider Name and Address Organization Details Recorded Time Abdomina l pain 75380499 Completed 201203/04/2014 IMPRESSI ON: HAS RISK FACTORS FOR GASTRITI S. WILL START PPI EMPIRICA LLY WHILE WAITING FOR GI F/U.; RECORDED 04/10/20 13 3:36PM BY LAKSHMI STEARNS MA, ANNOTATI ON/ADDEN DUM Glynn Hernández MD [address], [place], [address] , [facility] 6 10:12:45 Tobacco user [id number] Completed 201203/04/2014 RECORDED 09/07/19 13 2:45PM BY SHERYL PAREDES MA, ANNOTATI ON/ADDEN DUM Glynn Hernández MD [address] [facility] [address], [place], [address] , [facility] 6 10:12:45 Cough [id number] Completed 201103/04/2014 IMPRESSI ON: SYMPTOMS PRESENT JUST UNDER 1 WEEK. WILL TREAT SYMPTOMA TICALLY AND COVER FOR BACTERIA L SOURCE IF PERSISTA NT.; RECORDED 06/28/20 12 3:37PM BY SHERYL PAREDES MA, ANNOTATI ON/ADDEN DUM Glynn Hernández MD [address] [facility] [address], [place], [address] , [facility] 6 10:12:45 Type 2 diabetes mellitus without complica tion [id number] Completed 201303/04/2014 RECORDED 08/10/19 14 11:00AM BY ELEAZAR OAKES MA, ANNOTATI ON/ADDEN DUM Glynn Hernández MD [address] [facility] [address], [place], [address] , [facility] 6 10:12:45 Follow-u p encounte r Completed 201203/04/2014 RECORDED 03/16/20 13 11:54AM BY ELEAZAR OAKES MA, CATRACHITOATI ON/ADDAMBER DUM Glynn Hernández MD [address] [facility] [address], [place], [address] , [facility] 6 10:12:45 Influenz a vaccine needed [id number] Completed 201203/04/2014 RECORDED 04/06/20 13 1:37PM BY LAKSHMI STEARNS MA, OFFICE VISIT Glynn Hernández MD [address] [facility] [address], [place], [address] , [facility] 6 10:12:45 Adult health examinat ion Completed 201203/04/2014 IMPRESSI ON: WILL UPDATE IMMUNIZA TION STATUS AND SCREEN BASED ON RISK FACTORS. REGULAR DENTAL CARE AND SEATBELT USE ADVISED. DISTRACT ED DRIVING DISCUSSNora [place]. COLON CANCER SCREENIG N UTD. PROSTATE CANCER SCREENIN G TAILORED BASED ON RISK FACTORS. ; RECORDED 04/10/20 13 3:36PM BY LAKSHMI STEARNS MA, CATRACHITOATI ON/CORDELL Hernández MD [address] [facility] [address], [place], [address] , [facility] 6 10:12:45 Laborato ry procedur e performe d [id number] Completed 201303/04/2014 RECORDED 08/10/19 14 10:59AM BY ELEAZAR OAKES MA, SAMMY ON/CORDELL Hernández MD [address] [facility] [address], [place], [address] , [facility] 6 10:12:45 Shoulder joint pain [id number] Completed 201103/04/2014 IMPRESSI ON: PERSISTA NT DESPITE CONSERVA TICVE THERAPY. WILL SEE WHAT ORTHO THINKS.; RECORDED 06/28/20 12 3:37PM BY SHERYL PAREDES MA, ANNOTSARAN ON/CORDELL Hernández MD [address] [facility] [address], [place], [address] , [facility] 6 10:12:45 Lipoma [id number] Completed 201303/04/2014 IMPRESSI ON: MOST LIKELY DIAGNOSI S. REASSURA NCE PROVIDED . IF CHANGES OR BECOMES UNCOMFOR TABLE WILL EVALUATE FURTHER. ; RECORDED 10/12/19 14 12:56PM BY LAKSHMI STEARNS MA, CATRACHITOATI ON/CORDELL Hernández MD [address] [facility] [address], [place], [address] , [facility] 6 10:12:45 Renewal of prescrip tion Completed 201303/04/2014 RECORDED 11/16/19 14 1:29PM BY LAKSHMI STEARNS MA, ANNOTATI ON/ADD DUM Glynn Hernández MD [address] [facility] [address], [place], [address] , [facility] 6 10:12:45 Mononeur itis of lower limb Completed 201303/04/2014 RECORDED 08/10/19 14 11:00AM BY ELEAZAR OAKES MA, ANNOTATI ON/ADD DUM Glynn Hernández MD [address] [facility] [address], [place], [address] , [facility] 6 10:12:45 Pleural effusion 38758603 Completed 201303/04/2014 IMPRESSI ON: WORSE SINCE IN THE HOSPITAL 2 WEEKS AGO. GAVE HIM CHOICE OF ER OR SEEING PULMONAR Y DR NEXT WEEK. HE WOULD LIKE TO WAIT. HE WILL GO TO ER IF ANY FEVERS, ANY WORSENIN G PAIN.; RECORDED 11/16/19 14 2:08PM BY GLYNN Macias MD, ANNOTATI ON/ DUM Glynn Hernández MD [address] [facility] [address], [place], [address] , [facility] 6 10:12:45 Pneumoni a [id number] Completed 201303/04/2014 IMPRESSI ON: RADIOLOG IST READ STATES THERE MAY STILL BE CONSOLID ATION IN LUNG. PULMONAR Y TO REASSESS NEXT WEEK; RECORDED 01/10/20 14 5:46PM BY GLYNN Macias MD, ANNOTATI ON/ADD DUM Glynn Hernández MD [address] [facility] [address], [place], [address] , [facility] 6 10:12:45 Abdomina l pain 07011399 Completed 201202/05/2014 IMPRESSI ON: HAS RISK FACTORS FOR GASTRITI S. 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 38966743 Completed 05/30/2017 Glynn Hernández MD [address] [facility] [address], [place], [address] , [facility] 7 11:34:19 Tobacco user 495162521 Completed 201202/05/2014 RECORDED 09/07/19 13 2:45PM BY SHERYL PAREDES MA, ANNOTATI ON/ADDEN DUM Glynn Hernández MD [address] [facility] [address], [place], [address] , [facility] 6 10:12:45 History of clinical finding in subject 291848324 Completed 201203/08/2014 RECORDED 09/07/19 13 2:45PM BY SHERYL PAREDES MA, ANNOTATI ON/ADDEN DUM Glynn Hernández MD [address] [facility] [address], [place], [address] , [facility] 6 10:12:45 Coronary atherosc lerosis 791548616 Active Not Available [facility] 0 18:23:47 Cough 05612567 Completed 201102/05/2014 IMPRESSI ON: SYMPTOMS PRESENT JUST UNDER 1 WEEK. WILL TREAT SYMPTOMA TICALLY AND COVER FOR BACTERIA L SOURCE IF PERSISTA NT.; RECORDED 06/28/20 12 3:37PM BY SHEYRL PAREDES MA, ANNOTATI ON/ADDEN DUM Glynn Hernández MD [address] [facility] [address], [place], [address] , [facility] 6 10:12:45 Type 2 diabetes mellitus without complica tion 931083610 Completed 201302/05/2014 RECORDED 08/10/19 14 11:00AM BY ELEAZAR OAKES MA, SAMMY ON/ADDEN DUM Glynn Hernández MD [address] [address], [place], [address] , [facility] 6 10:12:45 Uncontro lled type 2 diabetes mellitus 413856726 Completed 12/23/2016 STORY: DOMINGO BURROWS RN [id number] /ANA PAULA Hernández MD [address] [facility] [address], [place], [address] , [facility] 7 12:06:51 Uncontro lled type 2 diabetes mellitus 960468776 Completed 201302/05/2014 IMPRESSI ON: BASED ON HOME MEASUREM ENTS CONTROL IS INADEQUA TE. WILL MAXIMIZE METFORMI N DOSE AND RECHECK LABS.; RECORDED 11/16/19 14 1:29PM BY LAKSHMI STEARNS MA, SAMMY ON/CORDELL Hernández MD [address] [facility] [address], [place], [address] , [facility] 7 12:06:51 Follow-u p encounte r Completed 201202/05/2014 RECORDED 03/16/20 13 11:54AM BY ELEAZAR OAKES MA, SAMMY ON/ADDEN RENATO Hernández MD [address] [facility] [address], [place], [address] , [facility] 6 10:12:45 Essentia l hyperten kali 74769820 Active Not Available [facility] 0 18:23:47 Influenz a vaccine needed 59560078433 06 Completed 201202/05/2014 RECORDED 04/06/20 13 1:37PM BY LAKSHMI STEARNS MA, OFFICE VISIT Glynn Hernández MD [address] [facility] [address], [place], [address] , [facility] 6 10:12:45 Adult health examinat ion Completed 201202/05/2014 IMPRESSI ON: WILL UPDATE IMMUNIZA TION STATUS AND SCREEN BASED ON RISK FACTORS. REGULAR DENTAL CARE AND SEATBELT USE ADVISED. DISTRACT ED DRIVING DISCUSSE D. COLON CANCER SCREENIG N UTD. PROSTATE CANCER SCREENIN G TAILORED BASED ON RISK FACTORS. ; RECORDED 04/10/20 13 3:36PM BY LAKSHMI STEARNS MA, ANNOTATI ON/ADDEN DUM Glynn Hernández MD [address] [facility] [address], [place], [address] , [facility] 6 10:12:45 Gastroes ophageal reflux disease 027746388 Active Not Available [facility] 0 18:23:47 Pure hypercho lesterol emia 505117031 Active Not Available [facility] 0 18:23:47 Essentia l hyperten kali 46549826 Completed 201202/05/2014 RECORDED 08/07/19 13 2:35PM BY SHERYL PAREDES MA, ANNOTATI ON/CORDELL Hernández MD [address] [address], [place], [address] , [facility] 6 10:12:45 Laborato ry procedur e performe d 281210159 Completed 201302/05/2014 RECORDED 08/10/19 14 10:59AM BY ELEAZAR OAKES MA, ANNOTATI ON/CORDELL Hernández MD [address] [facility] [address], [place], [address] , [facility] 6 10:12:45 Shoulder joint pain 895928730 Completed 201102/05/2014 IMPRESSI ON: PERSISTA NT DESPITE CONSERVA TICVE THERAPY. WILL SEE WHAT ORTHO THINKS.; RECORDED 06/28/20 12 3:37PM BY SHERYL PAREDES MA, SAMMY ON/CORDELL Hernández MD [address] [facility] [address], [place], [address] , [facility] 6 10:12:45 Lipoma 99181859 Completed 201302/05/2014 IMPRESSI ON: MOST LIKELY DIAGNOSI S. REASSURA NCE PROVIDED . IF CHANGES OR BECOMES UNCOMFOR TABLE WILL EVALUATE FURTHER. ; RECORDED 10/12/19 14 12:56PM BY LAKSHMI STEARNS MA, SAMMY ON/CORDELL Hernández MD [address] [facility] [address], [place], [address] , [facility] 6 10:12:45 Renewal of prescrip tion Completed 201302/05/2014 RECORDED 11/16/19 14 1:29PM BY LAKSHMI STEARNS MA, CATRACHITOATI ON/CORDELL Hernández MD [address] [facility] [address], [place], [address] , [facility] 6 10:12:45 Mononeur itis 89990759 Active Not Available [facility] 0 18:23:47 Mononeur itis of lower limb Completed 201302/05/2014 RECORDED 08/10/19 14 11:00AM BY ELEAZAR OAKES MA, SAMMY ON/CORDELL Hernández MD [address] [facility] [address], [place], [address] , [facility] 6 10:12:45 Old myocardi al infarcti on 8619914 Active 2000 IMI/EF 47% 5 nuc stress/ STORY: NAVARRO Not Available [facility] 0 18:23:47 Chronic pancreat itis 639374478 Active Not Available [facility] 0 18:23:47 Pleural effusion 80683027 Completed 201302/05/2014 IMPRESSI ON: WORSE SINCE IN THE HOSPITAL 2 WEEKS AGO. GAVE HIM CHOICE OF ER OR SEEING PULMONAR Y DR NEXT WEEK. HE WOULD LIKE TO WAIT. HE WILL GO TO ER IF ANY FEVERS, ANY WORSENIN G PAIN.; RECORDED 11/16/19 14 2:08PM BY GLYNN Macias MD, ANNOTATI ON/ADDEN DUM Glynn Hernández MD [address], [place], [address] , [facility] 6 10:12:45 Pneumoni a 318263244 Completed 201303/08/2014 IMPRESSI ON: RADIOLOG IST READ STATES THERE MAY STILL BE CONSOLID ATION IN LUNG. PULMONAR Y TO REASSESS NEXT WEEK; RECORDED 11/16/19 14 1:34PM BY LAKSHMI STEARNS MA, OFFICE VISIT Glynn Hernández MD [address], [place], [address] , [facility] 6 10:12:45 Neuropat hy due to diabetes mellitus 712451916 Active Not Available [facility] 0 18:23:47 Body mass index 25-29 - overweig ht 663816565 Completed 05/30/2017 Glynn Hernández MD [address], [place], [address] , [facility] 7 11:32:22 Type 2 diabetes mellitus 75147338 Completed 12/05/2018 Removal Reason: not specific Mely xie, [facility] 9 09:38:09 Mitral valve regurgit ation 94648019 Active Not Available [facility] 0 18:23:47 Multiple joint pain 86959529 Active Not Available [facility] 0 18:23:48 Well controll ed type 2 diabetes mellitus 230090324 Completed 01/03/2019 Soledad Peck PA-C [address], [place], [address] , [facility] 9 14:34:20 Shoulder pain 79949949 Completed 10/20/2018 Glynn Hernández MD [address], [place], [address] , [facility] 9 14:39:07 Christine talavera Completed 05/30/2017 Glynn Hernández MD [address], [place], [address] , [facility] 7 11:32:31 Serum creatini ne above referenc e range 501308389 Active Not Available [facility] 0 18:23:47 Diabetic distal sensorim otor polyneur opathy Active Not Available [facility] 0 18:23:47 Knee pain Active Not Available [facility] 0 18:23:47 Hyperkal emia 23733544 Completed 11/19/2016 Glynn Hernández MD [address], [place], [address] , [facility] 7 08:25:48 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 827993479 Active Not Available [facility] 0 18:23:47 Chronic kidney disease stage 3 172324677 Active 2016 Not Available [facility] 0 18:23:47 Bilatera l tinnitus 81168972168 02 Active 2017 Not Available [facility] 0 18:23:47 Sensorin eural hearing loss 63769707 Active 2017 Not Available [facility] 0 18:23:47 Albuminu charlie 217484656 Active 2018 Not Available [facility] 0 18:23:47 Dilatati on of aorta 77756030 Active 2018 1.8 cm abdomina l Not Available [facility] 0 18:23:47 Steatosi s of liver 273499150 Active 2018 Not Available [facility] 0 18:23:47 Recurren t major depressi on 55657750 Active 2018 Not Available [facility] 0 18:23:47 Renal disorder due to type 2 diabetes mellitus 049400437 Active 2018 Not Available [facility] 0 18:23:48 Narrow angle of anterior chamber of left eye 75475311963 811381 Active 2018 Not Available [facility] 0 18:23:47 Nuclear cataract 94099685 Active 2018 Not Available [facility] 0 18:23:48 Aortic root dilatati on 176513893 Active 2019 Not Available [facility] 0 18:23:47 Noncompl iance with medicati on regimen 055487836 Active 2020 Glynn Hernández MD [address] [address], [place], [address] , [facility] 1 22:01:23 Notes:Some problems listed i n Documents: #[id number], #[id number], #[id number], #[id number], #[id number], #[id number], #[id number], #[id number] could not be added to this patient's chart. Please review these documents and add these problems to the patient's chart manually as needed. Problem Notes None recorded. Procedures Surgical History Date Name Laterality Status Provider Name and Address Organization Details Recorded Time 12/11/19 20 Echo transthoracic completed Glynn Hernández MD [address], [address], [facility] 12/17/2019 22:15:25 01/16/20 19 iridotomy completed Glynn Hernández MD [address], [address], [facility] 01/31/2019 10:16:14 01/04/20 19 Diabetic Foot Exam (Monofilament) completed Margaret Coe [facility] 01/03/2019 14:22:39 10/31/19 19 angiography of coronary artery completed Glynn Hernández MD [address], [address], [facility] 11/17/2018 16:23:33 09/28/19 19 radionuclide imaging of perfusion of myocardium under exercise stress completed Glynn Hernández MD [address] [facility] [address] [facility], [place], [address], [facility] 10/02/2018 14:15:32 10/16/19 17 Colonoscopy completed Lakshmi Stearns MA [facility] 11/18/2016 11:20:22 03/11/20 16 Stress Test completed Glynn Hernández MD [address] [facility] [address] [facility], [place], [address], [facility] 03/21/2016 10:16:26 11/05/19 15 Echo Transthoracic completed Glynn Hernández MD [address] [address], [place], [address], [facility] 11/07/2014 17:34:46 09/25/19 15 CABG completed Glynn Hernández MD [address] [facility] [address] [facility], [place], [address], [facility] 09/29/2014 12:48:27 01/23/20 12 Imaging, cardiac cath completed Glynn Hernández MD [address] [address], [place], [address], [facility] 09/17/2014 09:24:50 01/23/20 12 Cardiac Surgery completed Glynn Hernández MD [address], [address], [facility] 10/20/2018 14:20:26 06/24/20 06 Colonoscopy completed Lakshmi Stearns MA [facility] 06/13/2014 11:12:06 01/23/20 01 Cardiac Surgery completed Lakshmi Stearns MA [facility] 02/24/2016 13:01:28 Tonsillectomy completed Lakshmi Stearns MA [facility] 02/24/2016 13:01:28 Orthopedic Surgery completed Lakshmi Stearns MA [facility] 02/24/2016 13:01:28 Imaging Results Imaging Date Name Status LastModified by Organization Details LastModified Time 09/08/2018 XR, chest, 2 view completed [facility] (Outpt Imaging) [address] [place], [address], 09/19/2018 10:45:52 09/14/2018 US, abdomen, complete completed [facility] (Outpt Imaging) [address] [place], [address], 09/19/2018 10:45:52 09/27/2018 regadenoson stress test (PROC) completed [facility] Diagnostic Testing [address] [place], [address], 10/20/2018 14:22:03 11/08/2018 CT, chest, w/ contrast completed [facility] (Outpt Imaging) [address] [place], [address], 11/17/2018 16:12:28 12/11/2019 trans-thoracic echocardiogram (TTE) (PROC) completed [facility] [address] [place], [address], 12/17/2019 22:16:50 Procedure Notes None recorded. Medical Equipment None Reported. Allergies Allergen ID Allergen Name Allergen Category Reaction Reaction Severity Criticality Documentation Date Start Date Code Code System Note Provider Name and Address Organization Details Recorded Time 05161 codeine medicatio n other Not available Not available 05/18/20212013 2670 RxNorm Aimee xie, [facility] 1 10:42:54 4674 codeine sulfate medicatio n tachycard ia Not available Not available 02/05/20142013 24235 RxNorm Glynn Hernández MD [address] [facility] [address], [place], [address], [facility] 7 11:31:43 Medications Name Sig Start Date [...] order, pt needs this script sent to [facility] while waiting 2 weeks for mail order [...] 13 3:39PM BY GLYNN Macias MD, ANNOTATI ON/ DUM; Not Available Not Available Not [...] Available Not Available Not Available Fluarix Quad 8001-8252 (PF) 60 mcg (15 mcg x 4)/0.5 [...] Updated DateTime 9 175.9 cm 18.2 kg/m2 05810.4 5 g 65 /min 96.8 [degF] 98 % 98 % 101 mm[Hg] 69 mm[Hg] Lakshmi Stearns MA MA [facility] 9 10:24:44 Date Recorded Body height Body mass index (BMI) Body weight Heart rate Oxygen saturation Oxygen saturation in Arterial blood by Pulse oximetry Body temperature Systolic blood pressure Diastolic blood pressure Provider Name and Address Organization Details Last Updated DateTime 9 175.9 cm 20.2 kg/m2 20581.7 5 g 79 /min 97 % 97 % 98.3 [degF] 108 mm[Hg] 69 mm[Hg] Lakshmi Stearns MA [facility] 9 14:10:15 Date Recorded Body height Body mass index (BMI) Body weight Heart rate Oxygen saturation Oxygen saturation in Arterial blood by Pulse oximetry Body temperature Systolic blood pressure Diastolic blood pressure Provider Name and Address Organization Details Last Updated DateTime 9 175.9 cm 21.3 kg/m2 48072.8 9 g 60 /min 100 % 100 % 98.7 [degF] 112 mm[Hg] 74 mm[Hg] Lakshmi Stearns MA [facility] 9 15:41:31 Date Recorded Body height Body temperature Oxygen saturation Oxygen saturation in Arterial blood by Pulse oximetry Heart rate Body mass index (BMI) Body weight Systolic blood pressure Diastolic blood pressure Provider Name and Address Organization Details Last Updated DateTime 9 175.9 cm 97.7 [degF] 98 % 98 % 60 /min 21.3 kg/m2 59853.8 9 g 103 mm[Hg] 67 mm[Hg] Lakshmi Stearns MA [facility] 9 11:13:44 Date Recorded Body height Body mass index (BMI) Body weight Heart rate Oxygen saturation Oxygen saturation in Arterial blood by Pulse oximetry Systolic blood pressure Diastolic blood pressure Provider Name and Address Organization Details Last Updated DateTime 9 175.9 cm 22 kg/m2 84501.9 6 g 68 /min 96 % 96 % 126 mm[Hg] 80 mm[Hg] Margaret Coe [facility] 9 14:26:55 Social History Question Answer Notes LastModified by Organizat ion Details LastModified Time Tobacco Smoking Status Former Smoker quit 2009 Not Available [facility] 05/27/2020 03:36:41 Do You Have An Advance Directive? Yes HCP/ Girlfriend-Mustapha fletcher [id number] Information not available 05/27/2020 What Is Your Level Of Alcohol Consumption? Occasional Wine [id number] Information not available 05/27/2020 Is Blood Transfusion Acceptable In An Emergency? Yes [id number] Information not available 05/27/2020 What Is Your Level Of Caffeine Consumption? None [id number] Information not available 05/27/2020 How Much Tobacco Do You Chew? None [id number] Information not available 05/27/2020 Are You Currently Employed? No [id number] Information not available 05/27/2020 What Type Of Diet Are You Following? CARDIAC [id number] Information not available 05/27/2020 Which Illicit Or Recreational Drugs Have You Used? None [id number] Information not available 05/27/2020 What Is Your Occupation? Retired [email or web address] [id number] Information not available 05/27/2020 Live Alone Or [...] Of Your Most Recent Tobacco Screening? 01/03/2019 [id number] Information not available 05/27/2020 How Many Children Do You Have? 2 Sons [id number] Information not available 05/27/2020 Seat Belts Used Routinely Yes Information not available 06/13/2014 Are You Sexually Active? Yes [id number] Information not available 05/27/2020 Smoke Alarm In Home Yes Information not available 02/24/2016 At What Age Did You Start Smoking Tobacco? 20 [id number] Information not available 05/27/2020 Are You Passively Exposed To Smoke? Yes Information not available 02/24/2016 How Much Tobacco Do You Smoke? 0.5 PPD [id number] Information not available 05/27/2020 Do You Use Sunscreen Routinely? Yes [id number] Information not available 05/27/2020 How Many Years Have You Smoked Tobacco? 33 [id number] Information not available 05/27/2020 Sex: Unknown Functional Status Question Answer Note LastModified by Organization D etails LastModified Time Are you able to care for yourself? Yes [id number] Information n ot available 05/27/2020 What is your exercise level? None [id number] Information not available 05/27/2020 Mental Status None [...] high-dose, trivalent, PF 4 completed Not Available [facility] 04/18/2020 18:23:48 Influenza, high-dose, trivalent, PF 5 completed Not Available [facility] 04/18/2020 18:23:48 Influenza, split virus, quadrivalent, preservative 6 completed Not Available [facility] 04/18/2020 18:23:48 Influenza, MDCK, quadrivalent, PF [address] [facility] 05/18/2021 10:43:09 Influenza, MDCK, quadrivalent, PF [address] [facility] 05/18/2021 10:43:09 Influenza, split virus, quadrivalent, PF 7 completed Not Available [facility] 08/11/2019 02:22:11 Tdap 9 completed Not Available [facility] 08/11/2019 02:21:49 influenza, seasonal, intradermal, preservative free 2 completed Not Available [facility] 04/18/2020 18:23:48 influenza, seasonal, intradermal, preservative free 3 completed Not Available [facility] 04/18/2020 18:23:48 Tdap 8 completed Not Available [facility] 04/18/2020 18:23:48 pneumococcal conjugate PCV 7 8 completed Not Available [facility] 04/18/2020 18:23:48 pneumococcal polysaccharide PPV23 4 completed Not Available [facility] 04/18/2020 18:23:48 Past Encounters Encounter ID Performer Location Encounter Start Date Encounter Closed Date Diagnosis/Indication Diagnosis SNOMED-CT Code Diagnosis ICD10 Code Diagnosis Note [id number] autoEComm erce [address] [facility] [address] [place] [address] 06/05/2012 00:00:00 [id number] autoEComm erce [address] [place] [address] 08/07/2012 00:00:00 [id number] autoEComm erce [address] [facility] [place] [address] 11/15/2012 00:00:00 [id number] autoEComm erce [address] [facility] [place] [address] 04/06/2013 00:00:00 [id number] autoEComm erce [address] [facility] [place] [address] 07/04/2013 00:00:00 [id number] autoEComm erce [address] [facility] [place] [address] 08/10/2013 00:00:00 [id number] autoEComm erce [address] [facility] [place] [address] 10/03/2013 00:00:00 [id number] autoEComm erce [address] [facility] [place] [address] 11/15/2013 00:00:00 [id number] autoEComm erce [address] [facility] [place] [address] 12/14/2013 00:00:00 [id number] Lakshmi Stearns MA Main Office [address] [place] [address] 03/08/2014 15:04:54 03/08/2014 15:59:04 Uncontrolled type 2 diabetes mellitus 910878056 Pt has lab orders from November and will have them done myah. Ophtho exam utd. Neuropathy due to diabetes mellitus 679111177 Not responding to gabapentin . Will try Lyrica and titrate as tolerated to goal pain control. Essential hypertension 18207148 Well controlled . Continue current regimen. [id number] Lakshmi Stearns MA Main Office [address] [address] [place] [address] 06/13/2014 10:49:55 06/13/2014 12:08:08 Adult health examination 488128147 Immunizati on status utd, will screen based on risk factors. Colon cancer screening utd, prosate cancer screening deffered secondary to low risk. Regular dental and ophtho care advised as well as seatbelt and sunscreen use. Distracted driving discussed. Advance directives in place. Body mass index 25-29 - overweight 787291853 Neuropathy due to diabetes mellitus 366442113 Not responding to gabapentin or lyrica. Will consult neuro for further evalution and treatment recommenda tions. Coronary atherosclerosis 918168367 Asymptomat ic with goal risk factor control. Cntinue current regimen. Uncontroll ed type 2 diabetes mellitus 651907575 Pt has lab orders from November and will have them done myah. Ophtho exam utd. Anemia 485806007 Has bee n stable. Will follow. [id number] Glynn Hernández MD Main Office [address] [address] [place] [address] 10/21/2014 14:44:22 10/21/2014 15:41:20 Coronary atherosclerosis 018886410 Asymptomat ic post CABG. Will reassess risk factor control. Cntinue current regimen for now. Essential hypertension 44886574 Well controlled . Continue current regimen. Anemia 694607841 Has bee n stable. Will follow. Uncontroll ed type 2 diabetes mellitus 035145882 [id number] Glynn Hernández MD Main Office [address] [address] [place] [place] [address] 01/29/2015 11:15:31 01/29/2015 12:14:47 Essential hypertension 86615832 Well controlled . Continue current regimen. Multiple joint pain 44852941 Has risk for vitamin D deficiency which may be contributi ng to some of his pain along with neuropathy . Neuropathy due to diabetes mellitus 089601441 Not responding to gabapentin or Lyrica. Had EMG pending with neuro. Will see if Cymbalta helps with his discomfort . Well contr olled type 2 diabetes mellitus [id number] Glynn Hernández MD Main Office [address] [address] [place] [address] 06/16/2015 10:57:24 06/16/2015 11:56:38 Adult health examination 744667863 Z00.00 Immunizati on status utd, will screen based on risk factors. Colon cancer screening utd, prosate cancer screening deferred secondary to low risk. Regular dental and ophtho care advised as well as seatbelt and sunscreen use. Distracted driving discussed. Advance directives in place. Neuropathy due to diabetes mellitus 161318849 E11.40 Working with neuro to gain better control. Current regimen is affording some relief. Coronary atherosclerosis 592905513 I25.10 Asymptomat ic with goal risk factor control. Continue current regimen. Uncontroll ed type 2 diabetes mellitus 093774539 E11.65 Will reassess control. Ophtho exam utd. Anemia 883102793 D64.9 Has been stable. Will follow. Chronic pancreatitis 235 836475 K86.1 Shoulder pain 12588209 M 25.511 Will call if persistent /worse to try PT and consider PMR/ortho eval. [id number] Glynn Hernández MD Main Office [address] [facility] [address] [place] [address] 10/16/2015 11:29:30 10/16/2015 12:21:59 Type 2 diabetes mellitus 84771998 E11.9 Very well controlled . Will decrease sulfonylur ea dose and see if still needed. Essential hypertension 66982219 I10 Well controlled . Continue current regimen. 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 2385374 I25.2 Asymptomat ic with goal risk factor control. Will be following up with cards in next few months. Claudication 094830862 I 73.9 Start with PVR and if abnormal try pletal and consult vascular. Neuropathy due to diabetes mellitus 186464727 E11.40 Working with neuro to gain better control. Current regimen is affording some relief. [id number] Quentin andrew Main Office [address] [place] [address] 01/27/2016 12:58:25 01/27/2016 14:09:31 Knee pain 25743304 M25.561 pt states has tolerated oxycodone p MD [id number] Quentin andrew Main Office [address] [place] [address] 02/24/2016 12:49:07 02/24/2016 14:41:36 Knee pain 43839580 M25.561 no sig. help c PT -- will refer to [facility] - ? needs synvisc vs. check CT/MRI - needs arthroscop y? Hyperkalemia 80939217 E8 7.5 Serum crea tinine above reference range 877348985 R79.89 Coronary atherosclerosis 969397108 I25.812 seen by carmen. 8.1 - checked lipids, resumed statin recently - pending stress test in 2 weeks -- d/t above knee pain, ? exchange specialist to pharmacolo gic stress test [id number] Glynn Hernández MD Main Office [address] [facility] [address] [facility] [place] [address] 03/10/2016 10:30:28 03/10/2016 11:26:16 Pure hypercholesterolemia 278883357 E78.0 Essential hypertension 76330440 I10 bp stable on BB and off acei x 2 wks Neuropathy due to diabetes mellitus 828340653 E11.40 f/u c neurologis t Type 2 bertram betes mellitus 29344110 E11.22 25 minute office visit with greater than 50% of the visit face-to-fa ce with the patient and/or family providing counseling and/or coordinati on of care. Arterioscl erosis of coronary artery bypass graft 357343300 I25.810 [id number] Glynn Hernández MD Main Office [address] [facility] [address] [facility] [place] [address] 05/06/2016 10:51:00 05/06/2016 12:03:15 Neuropathy due to diabetes mellitus 921854307 E11.40 Recalcitra nt to neuropathi c pain meds. Will ask PMR for further management recommenda tions. Essential hypertension 35012652 I10 Better on recheck but not at goal. If Cr stable and K level normal will resume 10mg QD. Pt has appt with Dr. Briseno in 2 weeks. Osteoarthr itis of knee 105149660 M17.11 Ask PMR for considerat ion of injection trial or other treatment options. Hypercholesterolemia 136 72901 E78.2 Reassess since resumtion of statin therapy. [id number] Glynn Hernández MD Main Office [address] [facility] [address] [facility] [place] [address] 11/18/2016 10:58:00 11/18/2016 12:13:19 Multiple joint pain 08381389 M25.50 ? if related to establishe d OA diagnosis vs neuropathy vs fibromyosi tis vs reactive arthropath y vs autoimmune phenomenon . Will try another pain managament referral. Diabetic d istal sensorimotor polyneuropathy 086651537 E11.42 Diabetes has been well controlled . Continue current regimen. 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 Continue current regimen. Major depr essive disorder 422740492 F32.9 ? if this is the cause or response to his chronic pain issues. Essential hypertension 24140490 I10 Will follow for now and depending on lab results resume low dose ACEI. [id number] Glynn Hernández MD Main Office [address] [address] [place] [address] 12/23/2016 11:27:59 12/23/2016 12:26:20 Essential hypertension 22962291 I10 Will titrate BB and follow. Reluctant to resume ACEI given bump in creatinine that occurred last fall when he was on it. Knee pain 60706157 M25.5 61 M25.562 c/w his neuropathy which seems to be improving with venlafaxin e. Will follow. Unexplaine d weight loss 704574648 R63.4 Screen for thyroid disease and significan t pulmonary pathology. Anemia 613234780 D64.9 Had been stable. Will follow. Major depr essive disorder 810096649 F32.9 Will titrate SNRI dose. Bilateral hearing loss 08593630 H91.93 Becoming problemati c. Pt is considerin g further evaluation and treatment. [id number] Glynn Hernández MD Main Office [address] [facility] [address] [place] [address] 01/20/2017 13:31:07 01/20/2017 14:20:51 Essential hypertension 88607386 I10 Fair control. Continue current dose for now, Reluctant to resume ACEI given bump in creatinine that occurred last fall when he was on it. Knee pain 02658844 M25.5 61 M25.562 c/w his neuropathy which seems to be improving with venlafaxin e. Will follow. Diabetic d istal sensorimotor polyneuropathy 705843030 E11.42 Diabetes has been well controlled . Will decrease metformin dose. Anemia 609661865 D64.9 Had been stable. Will follow. Primary er ectile dysfunction 699570950 N52.9 Pt requesting rx. Has tolerated well in the past and has no contraindi cations. [id number] Mely Ahmadi Main Office [address] [facility] 207 [place] [address] 04/22/2017 10:31:20 04/22/2017 12:23:20 Needs influenza immunization 056935524 Z23 Diabetic d istal sensorimotor polyneuropathy 743310786 E11.42 Will reduce metformin dose and reassess a1c in 3 months.Wor perla with pain mgmt. Ging to start lamictal and considerin g medical marijuanna . Essential hypertension 63346807 I10 Will add low dose diuretic for added control and monitor potassium. Screening for malignant neoplasm of prostate 102520162 Z12.5 Check PSA prior to upcoming CAX. [id number] Glynn Hernández MD Main Office [address] [place] [address] 05/30/2017 10:57:48 05/30/2017 12:01:29 Adult health examination 495693006 Z00.00 Immunizati on status UTD, shingles advised via local pharmacy. Will screen based on risk factors. Colon cancer screening utd, will check 1 more PSA. Regular dental and ophtho care advised as well as seat belt and sunscreen use. Distracted driving discussed. Advance directives in place. Anemia 192080765 D64.9 Pt will d/c iron and folic acid. Will follow counts with these changes. Pure hypercholesterolemia 748385199 E78.00 LDL at goal. Continue current regimen. Well contr olled type 2 diabetes mellitus 353443680 E11.9 Improved control with weight loss. Will wean metformin dosing as long as A1C stays <6. Diabetic d istal sensorimotor polyneuropathy 701877572 E11.42 Essential hypertension 27094412 I10 Well controlled with addition of diuretic. Will continue current regimen. [id number] Lakshmi Stearns MA Main Office [address] [place] [address] 08/22/2018 09:57:31 08/22/2018 11:18:46 Essential hypertension 39182379 I10 Having orthostati c symptoms, so we'll d/c the diuretic and possibly BB if persistent . Type 2 bertram betes mellitus 41746579 E11.9 Fair control. Off of meds. Will defer resuming meds until lab work is done. Unintentio nal weight loss 466777247 R63.4 Based on comorbidit ies needs eval for possible occult malignancy wilian pancreatic /lung. Paresthesia 40017621 R20 .2 Chronic pancreatitis 235 066887 K86.1 Chronic ki dney disease stage 3 294839265 N18[address] Briseno next week. Requires a tetanus booster 390513231 Z23 Administra tion of viral vaccine 93040903 Z23 [id number] Glynn Hernández MD Main Office [address] [facility] [address] [place] [address] 09/19/2018 10:00:58 09/19/2018 11:03:19 Early satiety 008410208 R68.81 With continued weight loss. Will see if insurance will cover high end imaging now for him. Unintentio nal weight loss 097466074 R63.4 Based on comorbidit ies needs eval for possible occult malignancy wilian pancreatic /lung. Anemia 527821790 D64.9 Refer to heme for further eval if stool is negative for occult blood, to GI if positive. Arterioscl erosis of coronary artery bypass graft 883608196 I25.810 Refill requested. Await results of stress testing. Underweight 825448847 R6 3.6 Z68.1 Patients body weight is below the normal range for age (<18.5). Discussed implicatio ns of low weight such as general health, bone health, immune function, iron absorption . [id number] Glynn Hernández MD Main Office [address] [facility] [address] [place] [address] 10/20/2018 13:46:55 10/20/2018 14:53:24 Adult health examination 044063714 Z00.00 Immunizati on status UTD, Shingrix advised via local pharmacy. Will screen based on risk factors. Routine colon and prostate cancer screenign are utd. Regular dental and ophtho care advised as well as seat belt and sunscreen use. Distracted driving discussed. Advance directives in place. Varicella vaccination 68 337043 Z23 Diabetic d istal sensorimotor polyneuropathy 153625209 E11.42 Pt will f/u with carmela glasgow. Recurrent major depression 23095286 F33.1 Venlafaxin e not working for mood or pain, so will try mirtazepin e to help with sleep and appetite. Anemia 948696147 D64.9 Insurance wont' cover abdominal imaging for evaluation of this issue and weight loss so will ask GI to consider endoscopie s even though stool cards were negative. Purpura an d/or petechiae 009084094 R23.3 Screen for vasculitis /coagulopa thy Coronary atherosclerosis 019826585 I25.10 Having cardiac cath done next week for abnormal stress test. [id number] Mely Ahmadi Main Office [address] [facility] 207 [facility] [place] [address] 11/17/2018 15:20:46 11/17/2018 16:39:55 Essential hypertension 00265279 I10 Well controlled on BB. Will monitor with weight. Recurrent major depression 71080991 F33.1 Mood, appetite and sleep seem to be improving with mirtazapin e. Will titrate and d/c venlafaxin e. Continue slow venlafaxin e wean. Diabetic d istal sensorimotor polyneuropathy 039677370 E11.42 Complicate d, and refractory to numerous nerve modulating medication s. Will re establish care with pain mgmt. Will continue current metformin dosing while monitoring corie function. Will ask Soledad to help with management . Anemia 164992669 D64.9 On procrit via renal. Will follow counts. [id number] Glynn Hernández MD Main Office [address] [facility] [place] [address] 12/19/2018 10:36:36 12/19/2018 11:38:37 Essential hypertension 58655732 I10 Well controlled on BB. Will monitor with weight. Recurrent major depression 60492669 F33.1 Mood, appetite and sleep seem to be improving with mirtazapin e. Will titrate and d/c venlafaxin e. Continue slow venlafaxin e wean. Anemia 097646808 D64.9 On procrit via renal. Will follow counts. Bilateral glaucoma 53138 95213 2608852 H40.9 per pt report will need repair for closed angle disease. Will request records. Uncontroll ed type 2 diabetes mellitus 983110738 E11.65 Metformin dosing recently titrated. Has appt with upcoming. [id number] Soledad Peck PA-C Main Office [address] [facility] [address] [place] [address] 01/03/2019 14:16:54 01/03/2019 15:36:52 Uncontrolled type 2 diabetes mellitus 504287755 E11.65 HGA1c today again is down to [...] CGM log. Diabetic d istal sensorimotor polyneuropathy 242807192 E11.42 Pt. has jason with pain management . Chronic ki dney disease stage 3 033230159 N18.3 F/u with nephrologi st as scheduled. 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 634813329 E11.22 Health Concerns Section Related Observation LastModified by Organization Detai ls LastModified Time None Recorded Concern Status LastModified by Organization Details LastModified Time None Recorded Advance Directives Directive Y: HCP/ Girlfriend-Santa Payers Encounter Date Sequence Insurance Name Policy Number Policy Adorno Covered Member ID Adorno Member ID Guarantor Name 09/19/2018 1 [facility]) [id number] Quentin S S Walas [id number] Quentin S Walas 10/20/[address] [place] [address]) [id number] Quentin S S Walas [id number] Quentin S Walas 11/17/2018 1 [facility] [id number] Quentin S S Walas [id number] Quentin S Walas 12/19/[address] [place] [address]) [id number] Quentin S S Walas [id number] Quentin S Walas 01/03/[address] [place] [address]) [id number] Quentin S S [place]as [id number] Quentin Kiran Scottwendy Notes Date Note Type Note Provider Name [...] of early satiety. Glynn Hernández MD [address], [address], [facility] 09/19/2018 13:08:48 9 text/html Generic HPI TemplateReported bypatient.Notes:Here for a physical. Seeing ophtho regularly, no dentist. Glynn Hernández MD [address] [address], [place], [address], [facility] 10/20/2018 14:55:32 9 text/html Anxiety/DepressionReport ed [...] which was unremarkable per patient. Mely xie [facility] 12/05/2018 09:38:48 9 text/html Anxiety/DepressionReport [...] side effects from medication Glynn Hernández MD [address] [address], [place], [address], [facility] 12/19/2018 11:43:59 9 text/html 63 year old [...] reports weight loss of 50 lbs since 2012. Soledad Peck PA-C [address] [address], [place], [address], [facility] 01/03/2019 16:08:47
--- OUTSIDE RECORDS SUMMARY | 2024-11-13 10:25 | XMS_ITS | Clinical Summary ---
Author Organization [facility] [place] [facility] Address [address] [place] [address] Care Team Providers Care Horse Stud Manager Name Role Phone Rufino Rajput MD Primary Care Provider [phone] Allergies Active Allergy Reactions Criticality Noted Date [...] total) by mouth daily. 0 Active pancrelipase, Qag-Sstg-Zkvw, (CREON) 77701-7[address] units CPEP Take 1 capsule (24,000 units [...] age to complete this topic Care Teams Horse Stud Manager Relationship Specialty Start Date End Date Rufino Rajput MD [address] [facility] [place] [id number] PCP - General Internal Medicine 01/13/24
--- OUTSIDE RECORDS SUMMARY | 2024-11-13 10:26 | XMS_ITS | Encounter Summary ---
Author Organization [facility]ly [facility] Address [address] [place] [address] Care Team Providers Care Job Service Consultant Name Role Phone Rufino Rajput MD Primary Care Provider [phone] Francisco J Galeana MD Unavailable Orion Rodriguez MD Unavailable [phone] Kelby Celaya MD Unavailable [phone] System, Provider Not In Unavailable Unavaila ble Encounter Details Date Type Department Care Team (Late st Contact Info) Description 01/17/2024 Scanned Document [facility] [address] [place] [address] Dee Zhong [address] [facility] [address] [place] [address] Social History Tobacco Use Types Packs/Day Years [...] Assigned at Male 12/21/2023 2:40 PM EDT Legal Sex Male 2:37 PM EDT Gender Identity Male 12/21/2023 2:40 PM EDT Sexual Orientation Heterosexual (straight) 02/01 2:07 PM EDT documented as of this encounter Plan of Treatment Not on file documented as of this encounter Visit Diagnoses Not on filedocumented in this encounter Care Teams Job Service Consultant Relationship Specialty Start Date End Date Rufino Rajput MD [address] [place], [place] PCP - General Internal Medicine 12/27/23 Francisco J Galeana MD [facility] [place], [place] Cardiology-Scan 01/06/24 Orion Rodriguez MD [address] [place] [address] [address] [place] [address] Surgery, Orthopedic 01/10/24 Kelby Celaya MD [address] [place] [address] Physician Nephrology 01/10/24 System, Provider Not In 01/10/24 documented as of this encounter
--- OUTSIDE RECORDS SUMMARY | 2024-11-13 10:26 | XMS_ITS | Clinical Summary ---
Author Organization [facility] Address [address] [facility] [address] [place] [address] Phone Care Team Providers Care Acute Care Surgeon Name Role Phone Rufino Rajput MD Primary Care Provider [phone] Allergies Active Allergy Reactions Criticality Noted Date [...] 1 (one) time each day Active pancrelipase, Mym-Aazv-Zdpa, (CREON) 47114-78666 units capsule Take 1 capsule by mouth [...] 11/15/2013 Overview (04/24/2024): STORY: DOMINGO BURROWS RN [phone] PAULA IMPRESSION: BASED ON HOME MEASUREMENTS CONTROL [...] Overview (06/03/2023): RECORDED 08/10/2013 10:59AM BY ELEAZAR OAKES MA, ANNOTATION/ADDENDUM Abdominal pain 04/10/2013 06/03/2023 Overview [...] ( severe disability ) on ; initial Henderson: 13 on 01/27/17 Glaucoma 09/04/2021 09/04/2021 H/O: [...] effusion 07/23/2013 09/04/2021 Old myocardial infarction 07/25/2000 Immunizations Immunization Administration Dates Next Due Influenza (IM) Preservative [...] Visit [facility] P.CVelvet [address] [address] Plascencia KarenSHAHRZAD [address] [address] Health Maintenance Due Date Last Done Comments Colorectal Cancer Screening: Annual FOBT 12/28/2004 Colorectal Cancer Screening: Colonoscopy 12/28/2004 Colorectal Cancer Screening: Sigmoidoscopy 12/28/2004 Pneumococcal Vaccine: 50+ Years (2 of 2 - PCV) 07/25/2014 07/25/2013, 07/06/2013, 04/26/2008 Diabetes: Ophthalmology Exam 01/11/2022 Diabetes: Pedal Pulse Checked 01/11/2022 Diabetes: Sensory Foot Exam 01/11/2022 Diabetes: Visual Foot Exam 01/11/2022 Diabetes: Hemoglobin A1C 04/12/2024 01/11/2024, 06/25 Influenza Vaccine (Season Ended) 2025 03/25/2020, 04/24/2019, 04/21/2018, Additional history exists Pneumococcal Vaccine: Peds (0 to 5 Years) and At-Risk Patients (6 to 49 Years) Discontinued 07/25/2013, 07/06/2013, 04/26/2008 Hepatitis B Vaccine Aged Out No longe [...] mg/dl PVNMA 07/22/2020 us [facility] [id number] LICITED RESULTS Final Result PVNMA from Last 3 Months or Most Recently Relevant to Health Maintenance [place] [address] Medicare [facility] Medicare Care Teams Acute Care Surgeon Relationship Specialty Start Date End Date Rufino Rajput MD [address] [place] [address] PCP - General Internal Medicine 04/06/21
--- OUTSIDE RECORDS SUMMARY | 2024-11-13 10:26 | XMS_ITS ---
[facility] Organization [facility] Address [address] [place] [address] Care Team Providers Care Char Filter Operator Helper Name Role Phone Regulo CONKLIN, [facility] Primary [facility] Provider Ni Almanza Unavailable [phone] Allergies Allergen (clinical drug ingredient) Drug/Non Drug Allergy documented on EMR Reaction Allergy Type Onset Date Status codeine Codeine Sulfate rapid pulse, shortness of breath, hypertation, sweats Drug Allergy Active REASON FOR VISIT At Risk Footcare, Open sore Medications Medication SIG (Take, Route, Frequency, Duration) Notes Start Date End Date Status Physical Therapy . . . 2-3x/week for 3-4 weeks Not-Taking Physical Therapy . . . 2-3x/week for 3-4 weeks 03/01/2014 Not-Taking Nitrostat 0.4 MG Sublingual No t-Taking metFORMIN HCl 1000 MG Oral for 30 Not-Taking Lisinopril 20 MG Oral for 90 N ot-Taking Lyrica 50 MG 1 capsule Orally Three times a day Not-Taking Ketostix In Vitro for 50 Not- Taking glipiZIDE Not-Taking Gabapentin 600 MG Oral for 90 Not-Taking glyBURIDE 5 MG Oral for 30 Not -Taking Ferrous Sulfate 325 (65 Fe) MG 1 tablet Orally Once a day Not-Taking Folic Acid 1 MG Oral for 90 No t-Taking Antibiotic Not-Takin g Extra Depth Diabetic Shoes with 3 Pair Custom heat-molded multi-density innersoles for 1 year Dx: 02/25/2021 Not-Taking Metoprolol Succinate ER 50 MG 1 tablet Orally Once a day Not-Taking FreeStyle Lancets for 90 No t-Taking FreeStyle Lite Test In Vitro for 90 Not-Taking Tamsulosin HCl 0.4 MG 1 capsule Orally Once a day for 30 day(s) Not-Taking Omeprazole 40 MG 1 capsule 30 minutes before morning meal Orally Once a day for 30 day(s) Not-Taking Insulin Cartridge 3ML Not-Taking Basaglar KwikPen Not -Taking Furosemide 40 MG 1 tablet Orally Once a day for 30 day(s) Not-Taking Lactulose Not-Taking Zolpidem Tartrate No t-Taking Enulose Not-Taking Vitamin C Not-Taking Extra Depth Orthopedic Shoes (1 Pair) with Customized Heat Molded Multidensity Innersoles (3 Pair) as directed Dx: NIDDM/Polyneuropathy (E11.42), Hammertoe Foot Deformity (M20.41,M20.42), Preulcerative Skin Lesion(s) (L85.1 07/12/2024 Active Extra Depth Diabetic Shoes with 3 Pair Custom heat-molded multi-density innersoles for 1 year Dx: Active Vitamin B-1 100 MG 1 tablet Orally Once a day for 30 day(s) Not-Taking Zenpep Not-Taking Multivitamins Orally Active Atorvastatin Calcium 20 MG 1 tablet Orally Once a day Active Aspirin 81 MG 1 tablet Orally Once a day Active Spironolactone 25 MG 1 tablet Orally for 30 day(s) Active Creon Active Calcitriol 0.25 MCG 1 capsule Orally Three times a Week Active Sodium Bicarbonate 650 MG as directed Orally Active Levemir Active NovoLOG sliding scale Active Pregabalin 100 MG 1 capsule Orally Three times a day Active Amoxicillin Active Doxycycline Hyclate Active Social History Tobacco Use: Social History Observation Description Date Details (start date - stop date) Never Smoker NA - NA Tobacco use other than smoking: Question Answer Notes Are you an other tobacco user? No Tobacco Control (Standard) Question Answer Notes Tobacco use: Nonsmoker Additional Findings: Tobacco non-user Current no nsmoker AUDIT-C (Standard) Question Answer Notes Did you have a drink containing alcohol in the p ast year? 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) Active confirmed Response to treatment Vital Signs Height 5ft 11in in 11/02/2024 Weight 155 lbs 11/02/2024 BMI 21.62 kg/m2 11/02/2024 Blood pressure systolic 120 mm Hg 11/03/19 Blood pressure diastolic 70 mm Hg 025 Procedures Procedure Date Ordered Date Performed Result Body Sit e 52333-XHJPGBX NAIL, 6 OR MORE 11/02/2024 N/A 96984-NTCE SKIN LESIONS, OVER 4 11/02/2024 N/A Encounters Encounter Location Date Provider Diagnosis [facility] [address] [place] [address] 11/02/2024 Ni Leone Type 2 diabetes mellitus with diabetic polyneuropathy E11.42 ; Neuropathic ulcer of right foot, 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 pdf (WOUND CARE INSTRUCTIONS. pdf) 11/02/2024 Tinea unguium (ICD-10 - B35.1) 11/02/2024 Other Patient Educated with: DIABETIC FOOT CARE INSTRUCTIONS. pdf (DIABETIC FOOT CARE INSTRUCTIONS. pdf) Plan Of Treatment Treatment Notes Assessment Notes Neuropathic ulcer of right f oot, limited to breakdown of skin Patient Educated with: WOUND CARE INSTRUCTIONS.pdf (WOUND CARE INSTRUCTIONS.pdf) Other Patient Educated wit h: DIABETIC FOOT CARE INSTRUCTIONS.pdf (DIABETIC FOOT CARE INSTRUCTIONS.pdf) Pending Test Test Name Order Date [id number]-[id number] NAIL, 6 OR MORE 11/02/2024 51238-UEBL SKIN LESIONS, OVER 4 11/03/19 25 Next Appt Details Follow Up: 2 Weeks, Reason: Provider Name:Ni duncan, 11/16/2024 09:30:00 AM, [address], [address], [place], [address], Procedure Notes * Category Sub-Category Detail Notes [...] use of a nail nipper and/or dremel-type outer diameter grinder, to a more viable healthy nail plate [...] to maintain effectiveness in symptomatic relief - 59789 Debride skin< 25 sq cm Open wound NEUROPATH Y: Physician of record performed open wound selective debridement of first 25 sq cm or less, of devitilized necrotic/nonviable soft tissue, fibrin, and exudate extending from the epidermis through the dermis, utilizing sharp dissection with sterile 15 blade, and/or tissue nippers. Hemostasis was controlled through direct pressure. Sterile antibiotic dressing applied, ANESTHESIA was not required due to presence of NEUROPATHY. Post debridement measurements: 15 mm x 16 mm x 2mm. Character of the wound post debridement is stable Keratoma Treatment Parring or Cutting o f Benign Hyperkeratotic Lesion(s) (-57) More than 4 Lesions - Due to the at risk nature of the patients medical condition as documented in the exam findings, performance of this keratoderma treatment is medically necessary as its management by an unskilled/untrained nonprofessional would put this patients foot and overall health at risk. Therefore, the benign hyperkeratotic lesions, (5 ) in total, locations as stated and described in the exam ( sub 1st MPJ LEFT, sub 5th MPJ B/L, plantar heels B/L), were pared, and/or cut utilizing a sterile 15 blade, tissue nippers, and/or power dremel instrumentation by the physician of record - 82479 Progress Notes * Quentin LARA SDOB:[birth year] (68 yo M)Acc No.[id number]:11/02/2024 Progress Note Patient:?Quentin LARA Provider:?Ni Leone DPM :1955???Age:68 Y???Sex:Male Santana e:11/02/2024 Address:[address] [place] [address] , [facility], [id number] Pcp:Rufino Rajput MD Subjective: * Chief Complaints: * ???At Risk FootcareOpen sore * HPI: ???At Risk footcare:?Pt States Last PCP Visit:?Date?07/11/2024 ???Skin problems:?Duration:?unknown he states it possibly opened a month ago.?Aggravated by:?shoe gear- reports worn out insoles.?Treatments:?none.? * ROS:?General/Constitutional:?Nausea?denies.?Vomiting?denies.?Hunger Thirst?denies.?Loss appetite?admits.?Chills?denies.?Fatigue?admits.?Fever?denies.?Night Sweats?denies.?Unexplained weight loss?denies.?Unexplained [...] 06/16Ey surgery - cataract slipped behind eyeball 07/16ey surgery, bitractomy 11/10/23left foot surgery, hardware removed from previous bunion surgery 02/03/24 * Hospitalization/Major Diagno stic Procedure:?[facility] - pneumonia 06/[id number] ER- Coundn't get up/stand -KidneyLiver failure-swelling/Infection ICU few weeks - rehab 6wks 05/29/2021[facility]- stent, kidney sones, 3 day stay 02/19/22 * Family History:?Mother: dece ased, kidney failure, kidney/liver disease, diagnosed with Diabetic - NIDDM.?Father: , coronary artery disease, foot problems, diagnosed with Unspecified essential hypertension, Unspecified heart disease.?Siblings: foot problems, diagnosed with Unspecified essential hypertension.? no children. * Social History:?Tobacco Use:?Tobacco use other than smoking?Are you an other tobacco user??No ?Tobacco Control (Standard)?Tobacco use:?Nonsmoker ?Additional Findings: Tobacco non-user?Current nonsmoker ???Drugs/Alcohol:?Drugs?Have you used drugs other than those for medical reasons in the past 12 months??No ???Drug/Alcohol:?AUDIT-C (Standard)?Did you have a drink containing alcohol in the past year??No ?Points?0 ?Interpretation?Negative * Medications:?TakingDoxycycli ne Hyclate Amoxicillin Sodium Bicarbonate [...] heat-molded multi-density innersoles for 1 year Dx: Extra Depth Orthopedic Shoes (1 Pair) with Customized Heat Molded Multidensity Innersoles (3 Pair) as directed Dx: NIDDM/Polyneuropathy (E11.42), Hammertoe Foot Deformity (M20.41,M20.42), Preulcerative Skin Lesion(s) (L85.1 Taking Doxycycline Hyclate Taking Amoxicillin Taking Sodium [...] multi-density innersoles for 1 year Dx: Taking Extra Depth Orthopedic Shoes (1 Pair) with Customized Heat Molded Multidensity Innersoles (3 Pair) as directed Dx: NIDDM/Polyneuropathy (E11.42), Hammertoe Foot Deformity (M20.41,M20.42), Preulcerative Skin Lesion(s) (L85.1 Not-Taking/PRNVitamin C Zenpep Vitamin B-1 100 MG [...] before morning meal Orally Once a day Not- Taking/PRN Tamsulosin HCl 0.4 MG Capsule 1 capsule [...] Not-Taking/PRN Folic Acid 1 MG Tablet Oral Not- Taking/PRN Ferrous Sulfate 325 (65 Fe) MG Tablet 1 tablet Orally Once a day Not-Taking/PRN glyBURIDE 5 MG Tablet Oral Not-Taking/PRN Gabapentin 600 MG Tablet Oral Not-Taking/PRN glipiZIDE Not-Taking/PRN Ketostix Strip In Vitro Not-Taking/PRN Lyrica 50 MG Capsule 1 capsule Orally Three times a day Not-Taking/PRN Lisinopril 20 MG Tablet Oral Not-Taking/PRN metFORMIN HCl 1000 MG Tablet Oral Not-Taking/PRN Nitrostat 0.4 MG Tablet Sublingual Sublingual Not-Taking/PRN Physical Therapy . . . . 2- 3x/week Not-Taking/PRN Physical Therapy . . . . 2-3x/week Medication List reviewed and reconciled with the patient * Allergies:?Codeine Sulfate: rapid pulse, shortness of breath, hypertation, sweatsyes[Allergies Verified] Objective: * Vitals:?Ht:5ft 11in, Wt:155, BMI:21.62, Shoe size:10.5, BP:120/70mm Hg, BS:210, Ht-cm: 180.34 cm, Wt-k.31 kg. * ???Past Orders: ???Lab:HEMOGLOBIN A1C (GLYCO HEMOGLOBIN) (Order Date - 07/27/2024) (Collection Date & Time - 11/02/2024 01:07 PM) ? Value Reference Range ?HEMOGLOBIN A1C % (HH) 7.0 * Examination: ???Ophthalmology Referral: ?DIABETES EYE EXAM?Procedure Performed:?No ?Findings of Diabetic Eye Exam:?no retinopathy?Orthopedic: ?MUSCLE STRENGTH:?5/5 all groups in a symmetrical fashion, B/L.?DIGITAL DEFORMITIES:?Digital contracture, PIPJ, 2-5 B/L, incompl-reducible to push-up test, no over, nor underlapping,?there is?evidence of shoe producing skin irritation.?FOOTWEAR EVALUATION:?worn, non-supportive, shoe gear properties exacerbate patient's foot/toe deformity.?General Examination: ?GENERAL APPEARANCE:?Reveals a pleasant, alert, well nourished, well- developed, well hydrated individual, who demonstrates proper attention to hygiene/body habitus, and is in no acute distress, Pt serves as own historian for office visit today.?ORIENTED:?person, place, and time.?FOOT EXAM:?Lower Extremity Neurological Exam performed:?Yes ?Footwear Evaluation?Footwear Evaluation performed:?Yes?Neurological: ?SENSORY:? Neurological exam demonstrates, reduced light touch [...] Keratotic lesion(s) located at sub 1st MPJ LEFT, sub 5th MPJ B/L, plantar heels B/L.?ULCER:?Sub 1st metatarsal head RIGHT, SIZE, 10 mm X 16 mm X 2mm, BASE, granular, RIM, hyperkeratotic, UNDERMINING, absent, TRACKING, Full thickness breakdown of skin, DRAINAGE, serosanguineous, mild, NECROTIC TISSUE, loosely-adherent, yellow slough, MALODOR, absent, CALOR, absent, ERYTHEMA, absent.?Vascular: ?DP PULSES (B):?1/4, B/L.?PT PULSES (B):? 1/4, B/L.?CAPILLARY FILL TIME:?3 secs. per digit, B/L.?TROPHIC CONDITION-TEXTURE/ELASTICITY/TURGOR/HAIR GROWTH (B):?normal, B/L.?TEMPERTURE GRADIENT (C):?normal, warm to cool, proximal to distal, B/L.?TELANGECTASIA:?absent, B/L.? 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 Plan: * Treatment: 2.?Type 2 diabetes mellitus with diabetic polyneuropathy?Procedure: 35850-DZNXBRK NAIL, 6 OR MORE ?Procedure: 22801-ZOZG SKIN LESIONS, OVER 4 3.?Others? Notes: Patient Educated with: DIABETIC FOOT CARE INSTRUCTIONS.pdf (DIABETIC FOOT CARE INSTRUCTIONS.pdf)?? * Procedures:?Debride Nail 6-10:?Nail debridement?Due to the [...] use of a nail nipper and/or dremel-type outer diameter grinder, to a more viable healthy nail plate [...] to maintain effectiveness in symptomatic relief - 05220.?Debride skin< 25 sq cm:?Open wound?NEUROPATHY: Physician of record performed open wound selective debridement of first 25 sq cm or less, of devitilized necrotic/nonviable soft tissue, fibrin, and exudate extending from the epidermis through the dermis, utilizing sharp dissection with sterile 15 blade, and/or tissue nippers. Hemostasis was controlled through direct pressure. Sterile antibiotic dressing applied, ANESTHESIA was not required due to presence of NEUROPATHY. Post debridement measurements: 15 mm x 16 mm x 2mm. Character of the wound post debridement is stable.?Keratoma Treatment:?Parring or Cutting of Benign Hyperkeratotic Lesion(s)?(-57) More than 4 Lesions - Due to the at risk nature of the patients medical condition as documented in the exam findings, performance of this keratoderma treatment is medically necessary as its management by an unskilled/untrained nonprofessional would put this patients foot and overall health at risk. Therefore, the benign hyperkeratotic lesions, (5 ) in total, locations as stated and described in the exam ( sub 1st MPJ LEFT, sub 5th MPJ B/L, plantar heels B/L), were pared, and/or cut utilizing a sterile 15 blade, tissue nippers, and/or power dremel instrumentation by the physician of record - 29025.? * Procedure Codes:?15023 DEBRI DE NAIL, 6 OR MORE, Modifiers: XS 38822 TRIM SKIN LESIONS, OVER 4, Modifiers: XS 3051F HG A1C>EQUAL 7.0%<8.0% * Preventive Medicine:? ??Counseling:?Discussion:?-14: Office or other [...] have encouraged the patient to call the office.?Ulcer:?A detailed plan of care was reviewed with the patient. We emphasized the fact that the patient takes on an active participating role in the treatment process and emphasized to them that they are an included, valued, and important member of the wound healing team in order to reach an expedient successful outcome. The patient agreed to follow their medically recommended diet while increasing their protein intake if safely able to do so, maintain proper bodily hydration, abide by weight-bearing restrictions at all times, quit all current smoking habits if any, and diligently follow any/all dressing change instructions. It was clearly made known to the patient that if they fail to do their part, they will likely extend their course of treatment as well as possibly increase their risk of adverse events including amputation. The patient was instructed on importance of proper wound care consisting of pressure reduction, and proper maintenance of a moist wound environment. The patient is to cleanse the wound with warm soapy water/peroxide/saline, or betadine BID based on product availability. The patient is to apply (Bacitracin) Antibiotic to the wound and cover with a DSD as directed. The patient was instructed to change dressings according to orders, or PRN saturation, leaks. The patient was instructed to monitor and report any signs or symptoms of infection or any untoward reactions. Precautions Taken: Offloading/Pressure reduction via rest/ limited activity to essential to daily life only, accomodative padding added to patient inserts. Patient is getting fitted for Diabetic shoes next Tuesday- a prescription was dispensed to patient to bring to appointment to ensure appropriate offloading. THE SHORT-TERM GOALS of wound care include, prevent hospitalization, debridement to remove devitalized tissue, minimize risk for soft tissue or bone infection, initiate and promote the wound healing process, and prevent further complication such as loss of limb or life were discussed/reviewed. THE LONG-TERM GOALS of wound care include, complete wound closure if possible, facilitate patient comfort, prevent recurrence, and return the patient to their pre-ulcerative state of activity and lifestyle if possible, Debridement frequency as indicated..? * Follow Up:?2 Weeks * Images: * Sign off status: Completed true * Provider:?Ni Leone DPM Date:?0 11/02/2024 Generated for Vika nicholson/Carrie/eTransmitting on:?11/13/2024 10:25 AM EDT History and Physical Notes * HPI (History of Present Illness) Category Sub-Category Detail Notes Category Not es Skin problems Duration: unknown he state s it possibly opened a month ago Aggravated by: shoe gear- reports w orn out insoles Treatments: none At Risk footcare Pt States Last PCP [...] Keratotic lesion(s) located at sub 1st MPJ LEFT, sub 5th MPJ B/L, plantar heels B/L ULCER: Sub 1st metatarsal h ead RIGHT, SIZE, 10 mm X 16 mm X 2mm, BASE, granular, RIM, hyperkeratotic, UNDERMINING, absent, TRACKING, Full thickness breakdown of skin, DRAINAGE, serosanguineous, mild, NECROTIC TISSUE, loosely-adherent, yellow slough, MALODOR, absent, CALOR, absent, ERYTHEMA, absent Orthopedic FOOTWEAR EVALUATION: worn, non-s upportive, shoe gear properties exacerbate patient's foot/toe deformity [...] no retin opathy Vascular DP PULSES (B): 07/28, B/L PT PULSES (B): 1/4, B/L CAPILLARY [...]
--- OUTSIDE RECORDS SUMMARY | 2024-11-13 10:26 | XMS_ITS | Encounter Summary ---
Author Organization [facility] Address [address] [place] [address] Care Team Providers Care Process Manager Name Role Phone Rufino Rajput MD Primary Care Provider [phone] Francisco J Galeana MD Unavailable Orion Rodriguez MD Unavailable [phone] Kelby Celaya MD Unavailable [phone] System, Provider Not In Unavailable Unavaila ble Encounter Details Date Type Department Care Team (Late st Contact Info) Description 01/18/2024 Scanned Document [facility] [address] [place] [address] Dee Zhong [address] [facility] [address] [place] [address] Social History Tobacco Use Types Packs/Day Years [...] on filedocumented in this encounter Care Teams Process Manager Relationship Specialty Start Date End Date Rufino Rajput MD 1961 [place], [place] PCP - General Internal Medicine 12/27/23 Francisco J Galeana MD [facility] [place], [place] Cardiology-Scan 01/06/24 Orion Rodriguez MD [address] [place] [address] [address] [place] [address] Surgery, Orthopedic 01/10/24 Kelby Celaya MD [address] [place] [address] Physician Nephrology 01/10/24 System, Provider Not In 01/10/24 documented as of this encounter
--- OUTSIDE RECORDS SUMMARY | 2024-11-13 10:26 | XMS_ITS | Clinical Summary ---
Author Organization [facility] Address [address] [place] [address] Care Team Providers Care Sales Representative Aircraft Name Role Phone Rufino Rajput MD Primary Care Provider [phone] Francisco J Galeana MD Unavailable Orion Rodriguez MD Unavailable [phone] Kelby Celaya MD Unavailable [phone] System, Provider Not In Unavailable Unavaila ble Allergies Active Allergy Reactions Criticality Noted Date Comments Codeine Other (See Comments),Palpitations Medium Medications atorvastatin (LIPITOR) 20 MG tablet Take 1 tablet (20 mg total) by mouth nightly. Active calcitRIOL (ROCALTROL) 0.25 MCG capsule Take 1 capsule (0.25 mcg total) by mouth every morning. 4 Active insulin aspart protamine-insulin aspart (NovoLOG MIX 70/30) (70-30) 100 units/mL injection Inject under the skin 2 (two) times a day before meals. Per sliding scale Active insulin glargine (Lantus SoloStar) 100 units/mL prefilled pen injection Inject 17 Units under the skin every morning. 4 Active nitroglycerin (NITROSTAT) 0.[address] 1 tablet as needed by sublingual route. Active pancrelipase (Creon) [address] Particles Take 1 capsule (24,000 Units total) by mouth 3 (three) times a day with meals. Active pregabalin (Lyrica) 50 MG capsule Take 3 capsules (150 mg total) by mouth 3 (three) times a day. Active sodium bicarbonate 650 MG tablet Take 1 tablet (650 mg total) by mouth 2 (two) times a day. 4 Active spironolactone (ALDACTONE) 25 MG tablet Take 1 tablet (25 mg total) by mouth every morning. 4 Active thiamine (VITAMIN B-1) 100 mg tablet Take 1 tablet (100 mg total) by mouth daily. 4 Active multivitamin Tab tablet Take 1 tablet by mouth daily. Active sulfamethoxazole- trimethoprim (BACTRIM DS,SEPTRA DS) 800-160 MG per tabletIndications :Other osteomyelitis of right foot (HCC) Take 1 tablet by mouth 2 (two) times a day. 28 tablet 4 Active acetaminophen (TYLENOL) 500 MG tabletIndications :Hallux valgus (acquired), left foot Take 1 tablet (500 mg total) by mouth 4 times daily (every 6 hours) as needed for mild pain or moderate pain. 84 tablet 4 Active aspirin enteric coated (ECOTRIN LOW STRENGTH) 81 MG EC tabletIndications :Hallux valgus (acquired), left foot Take 1 tablet (81 mg total) by mouth 2 times a day. With Food Post op 42 tablet 4 Active methocarbamol (ROBAXIN) 500 MG tabletIndications :Hallux valgus (acquired), left foot Take 1 tablet (500 mg total) by mouth 2 (two) times a day as needed for muscle spasms. 10 tablet 4 Active oxyCODONE (ROXICODONE) 5 MG immediate release tabletIndications :Hallux valgus (acquired), left foot Take 1 tablet (5 mg total) by mouth 4 times daily (every 6 hours) as needed for severe pain. Max Daily Amount: 20 mg 28 tablet 4 Active Active Problems Problem Noted Date Diagnosed [...] before surgery). Coronary artery disease invo lving craig heart without angina pectoris 01/08/2024 Assessment & Plan (01/10/2024 7:13 PM EDT): CO Follows with cardiology. Cardiac clearance scheduled 01/24/24 [...] 10:00 AM EST Ancillary Procedure [facility] [address] [address] 09/11/2024 9:45 AM EST Office Visit [facility] [address] [address] Monique Gay APRN Hallux valgus (acquired), left foot (Primary Dx) from Last 3 Months Family History Medical [...] this topic Medical Devices Implanted Type Area Telepathist Device Identifier Shelf Expiration Date Model / Serial / Lot 620-005 Filler Bone Void 5cc 12.5cc Calcium Slf Stimulan Rpd Cure - [id number] Implanted:Qty : 1 on 02/03/2024 by Orion Rodriguez MD at [facility] Void Filler Right: Foot [employer] [id number] 03/24/2026 620-005 / / [id number] Procedures Procedure Name Priority Date/Time Associated Diagnosis Comments XR FOOT WEIGHT BEARING 3 VIEWS-LEFT Routine 09/11/2024 10:05 AM EST Hallux valgus (acquired), left foot HEMOGLOBIN A1C WITH ESTIMATED AVERAGE GLUCOSE Routine 01/11/2024 12:22 PM EDT Preop examination Painful orthopaedic hardware (HCC) Acute osteomyelitis of right ankle or foot (HCC) Peripheral polyneuropathy Essential hypertension Pure hypercholesterolemia Coronary artery disease involving craig heart without angina pectoris, unspecified vessel or [...] hypertension Pure hypercholesterolemia Coronary artery disease involving craig heart without angina pectoris, unspecified vessel or [...] was performed in office at [facility] and images reviewed by orthopedic provider. ??Any findings are documented within ambulatory encounter note on date of service. Monique Gay APRN [facility] DIAGNOSTIC IMAGING OR DERABLES Final Result [facility] * (ABNORMAL) Hemoglobin A1c with Estimated Average Glucose (01/11/2024 12:22 PM EDT) Hemoglobin A1C 7.4(H) <5.7 % 01/11/2024 8:16 PM T [facility] Comment: A1c% ? Interpretation 5.7 - 6.0 ?Increase risk of diabetes 6.1 - 6.4 ?Higher risk of diabetes > or = 6.5 ?? Consistent with diabetes Diabetes Care, 33(Supp 1):S1-S61, 2010 Estimated Average Glucose 166 mg/dL 01/11/2024 8:16 PM EDT [facility] Blood Blood specimen / Unknown 01/11/2024 12:22 PM EDT 01/11/2024 7:01 PM EDT Kaykay Bailey [facility] BLOOD [place]AB[place] [address], [place] [address] * (ABNORMAL) Basic Metabolic Panel (01/11/2024 12:22 PM EDT) Glucose 231(H) 65 - 99 mg/dL 01/11/2024 7:38 PM [facility] Comment:Fasting: <100 mg/dL, Non-Fasting: <200 mg/dL (ADA 2004) Blood Urea Nitrogen (BUN) 34(H) 8 - 21 mg/dL 01/11/2024 7:38 PM [facility] Creatinine 2.1(H) 0.5 - 1.3 mg/dL 01/11/2024 7:38 PM [facility] eGFR 34(L) >59 01/11/2024 7:38 PM [facility] Comment:CKD-EPI (2020) in mL /min/1.73 sq meters. Sodium 138 136 - 145 mmol/L 01/11/2024 7:38 PM [facility] Potassium 5.2 3.4 - 5.3 mmol/L 01/11/2024 7:38 PM [facility] Chloride 108(H) 98 - 107 mmol/L 01/11/2024 7:38 PM EDT [facility] CO2 19(L) 22 - 33 mmol/L 01/11/2024 7:38 PM EDT [facility] Anion Gap 11 7 - 17 01/11/2024 7:38 PM EDT [facility] Calcium 9.0 8.7 - 10.5 mg/dL 01/11/2024 7:38 PM EDT [facility] BUN/Creatinine Ratio 16 10.0 - 25.0 Ratio 01/11/2024 7:38 PM EDT [facility] Blood (Plasma/Serum) 01/11/2024 12:22 PM EDT 01/11/2024 7:01 PM EDT Kaykay Arorashenavida [facility]LO[facility] ORDER[facility] [place] [address], [place] [address] from Last 3 Months or Most Recently Relevant to Health Maintenance Insurance MEDICARE PART A [place] [id number] [facility] MEDICARE PART A & B [facility] Advance Directives * Full Code (Latest Code Status on File) Date Activated Date Inactivated Comments 02/03/2024 7:41 AM Care Teams Sales Representative Aircraft Relationship Specialty Start Date End Date Rufino Rajput MD [address] [place], [place] PCP - General Internal Medicine 12/27/23 Francisco J Galeana MD [facility] [place], [place] Cardiology-Scan 01/06/24 Orion Rodriguez MD [address] [place] [address] [address] [place] [address] Surgery, Orthopedic 01/10/24 Kelby Celaya MD [address] [facility] [address] [place] [address] Physician Nephrology 01/10/24 System, Provider Not In 01/10/24
--- OUTSIDE RECORDS SUMMARY | 2024-11-13 10:26 | XMS_ITS ---
Author Organization [facility] Address [address] [facility] [place] [address] Care Team Providers Care Towel Cabinet Repairer Name Role Phone Regulo CONKLIN, Rufino Primary Care Provider Ni Almanza [phone] REASON FOR VISIT Transfer to Different Provider Encounters Encounter Location Date Provider Diagnosis [address] [address] 07/13/2024 Ni Leone Plan Of Treatment Next Appt Details Provider Name:Ni duncan, 11/16/2024 09:30:00 AM, [address] [place] [address], [address], Progress Notes * Quentin LARA SDOB:[birth year] (68 yo M)Acc No.[id number]:07/13/2024 Progress Note Patient:?Quentin LARA Provider:?Ni Leone DPM [...] Leone DPM Date:?1 09/13/2023 Generated for Vika nicholson/Carrie/Ashlye on:?11/13/2024 10:26 AM EDT
--- OUTSIDE RECORDS SUMMARY | 2024-11-13 10:26 | XMS_ITS | Encounter Summary ---
Author Organization [facility] Address [address] [place] [address] Care Team Providers Care Dog License Officer Supervisor Name Role Phone Rufino Rajput MD Primary Care Provider [phone] Francisco J Galeana MD Unavailable Orion Rodriguez MD Unavailable Kelby Celaya MD Unavailable [phone] System, Provider Not In Unavailable Unavaila ble Encounter Details Date Type Department Care Team (Late st Contact Info) Description 04/18/2024 Scanned Document [facility] [address] [place] [address] Dee Zhong [address] [facility] [address] [place] [address] Social History Tobacco Use Types Packs/Day Years [...] on filedocumented in this encounter Care Teams Dog License Officer Supervisor Relationship Specialty Start Date End Date Rufino Rajput MD [address] [place], [place] PCP - General Internal Medicine 12/27/23 Francisco J Galeana MD [facility] [place], [place] Cardiology-Scan 01/06/24 Orion Rodriguez MD [address] [place] [address] [address] [place] [address] Surgery, Orthopedic 01/10/24 Kelby Celaya MD [address] [place] [address] Physician Nephrology 01/10/24 System, Provider Not In 01/10/24 documented as of this encounter
--- OUTSIDE RECORDS SUMMARY | 2024-11-13 10:26 | XMS_ITS ---
Author Organization [facility] Address [address] [facility] [place] [address] Care Team Providers Care Ball Thread Machine Tender Name Role Phone Regulo CONKLIN, [facility] Primary Care Provider Ni Almanza Unavailable [phone] Allergies Allergen (clinical drug ingredient) Drug/Non Drug [...] Problem Acquired hammer toe of right foot (9734473962297 105) Other hammer toe(s) (acquired), right foot (M20.41) Active confirmed Problem Acquired hammer toe of left foot (5986381052445 103) Other hammer toe(s) (acquired), left foot (M20.42) Active confirmed Vital Signs Height 5ft 11in in 07/12/2024 Weight 155 lbs 07/12/2024 BMI 21.62 kg/m2 07/12/2024 Blood pressure systolic 120 mm Hg 07/12/20 24 Blood pressure diastolic 80 mm Hg 024 Procedures Procedure Date Ordered Date Performed Result Body Sit e 39173-THLWFCM NAIL, 6 OR MORE 07/12/2024 N/A 63638-HDPV SKIN LESIONS, OVER 4 07/12/2024 N/A Encounters Encounter Location Date Provider Diagnosis [facility] [address] [address] 07/12/2024 Ni Vasu Other hammer toe(s) (acquired), [...] INSTRUCTIONS.pdf) Pending Test Test Name Order Date 51653-JCNIVQY NAIL, 6 OR MORE 07/12/2024 90595-KOCS SKIN LESIONS, OVER 4 07/12/20 24 Next Appt Details Follow Up: prn, Reason: Provider Name:Ni duncan, 11/16/2024 09:30:00 AM, [address], [address], [place], [address], Procedure Notes * Category Sub-Category Detail Notes [...] use of a nail nipper and/or dremel-type external grinder tender, to a more viable healthy nail plate [...] to maintain effectiveness in symptomatic relief - 59437 Keratoma Treatment Parring or Cutting o f [...] instrumentation by the physician of record - 87330 Progress Notes * Quentin LARA SDOB:[birth year] (68 yo M)Acc No.[id number]:07/12/2024 Progress Note Patient:?Quentin LARA Provider:?Ni Leone DPM :1955???Age:68 Y???Sex:Male Santana e:07/12/2024 Address:[address] [place] [address] , [facility], J[place]-[address] Pcp:Rufino Rajput MD Subjective: * Chief Complaints: [...] * Hospitalization/Major Diagno stic Procedure:?[facility] - pneumonia 06/20130094-6-25[facility] ER- Coundn't get up/stand -KidneyLiver failure-swelling/Infection ICU [...] ?Exercise: yes, walking. ?Marital status: single. ?Occupation: Retired-[employer]. * Medications:?TakingDoxycycli ne Hyclate Amoxicillin Sodium Bicarbonate [...] 6.7 * Examination: ???Ophthalmology Referral: ?DIABETES EYE EXAM?Procedure [...] 2.?Type 2 diabetes mellitus with diabetic polyneuropathy?Procedure: 13837-YNAZKPU NAIL, 6 OR MORE ?Procedure: 21942-EVUG SKIN LESIONS, OVER 4 * Procedures:?Debride Nail [...] use of a nail nipper and/or dremel-type external grinder tender, to a more viable healthy nail plate [...] to maintain effectiveness in symptomatic relief - 07[address].?Keratoma Treatment:?Parring or Cutting of Benign Hyperkeratotic Lesion(s)?(-57) [...] instrumentation by the physician of record - 50975.? * Procedure Codes:?18286 DEBRI DE NAIL, 6 OR MORE, Modifiers: XS 66300 TRIM SKIN LESIONS, OVER 4, Modifiers: XS [...] Provider:?Ni Leone DPM Date:?09/12/2023 Generated for Vika nicholson/Carrie/Ashley on:?11/13/2024 10:25 AM EDT History and Physical [...] 5th MPJ B/L, plantar heels B/L Orthopedic FOOTWEAR EVALUATION: worn, non-s upportive, shoe [...]
--- OUTSIDE RECORDS SUMMARY | 2024-11-13 10:26 | XMS_ITS | Patient Health Record ---
Author Organization [facility] Address [address] [facility] [address] Care Team Providers Care Car Worker Helper Name Role Phone Regulo CONKLIN, [facility] Primary Care Provider Ni Almanza Unavailable [phone] Zhang Luis Unavailable [phone] Allergies Allergen (clinical drug ingredient) Drug/Non Drug Allergy documented on EMR Reaction Allergy Type Onset Date Status codeine Codeine Sulfate rapid pulse, shortness of breath, hypertation, sweats Drug Allergy Active Results Component Value Reference Range Notes HEMOGLOBIN A1C (GLYCOHEMOGLO BIN) Reviewed date:07/12/2024 09:56:01 AM Interpretation: Performing Lab: Notes/Report: TOTAL HEMOGLOBIN (HGBA1C) 6.7 HEMOGLOBIN A1C (GLYCOHEMOGLO BIN) Reviewed date:11/02/2024 01:08:21 PM Interpretation: Performing Lab: Notes/Report: HEMOGLOBIN A1C % (HH) 7.0 HEMOGLOBIN A1C (GLYCOHEMOGLO BIN) Reviewed date:02/24/2024 09:09:03 AM Interpretation: Performing Lab: Notes/Report: HEMOGLOBIN A1C % (HH) 7.1 Reason For Referral No Information Medications Medication SIG (Take, Route, Frequency, Duration) Notes Start Date End Date Status Doxycycline Hyclate Active Furosemide 40 MG 1 tablet Orally Once a day for 30 day(s) Not-Taking Lactulose Not-Taking Zolpidem Tartrate No t-Taking Physical Therapy . . . 2-3x/week for 3-4 weeks 03/01/2014 Not-Taking Enulose Not-Taking Nitrostat 0.4 MG Sublingual No t-Taking Vitamin B-1 100 MG 1 tablet Orally Once a day for 30 day(s) Not-Taking metFORMIN HCl 1000 MG Oral for 30 Not-Taking Zenpep Not-Taking Lisinopril 20 MG Oral for 90 N ot-Taking Vitamin C Not-Taking Lyrica 50 MG 1 capsule Orally Three times a day Not-Taking Extra Depth Orthopedic Shoes (1 Pair) with Customized Heat Molded Multidensity Innersoles (3 Pair) as directed Dx: NIDDM/Polyneuropathy (E11.42), Hammertoe Foot Deformity (M20.41,M20.42), Preulcerative Skin Lesion(s) (L85.1 07/12/2024 Active Ketostix In Vitro for 50 Not- Taking Extra Depth Diabetic Shoes with 3 Pair Custom heat-molded multi-density innersoles for 1 year Dx: Active glipiZIDE Not-Taking Multivitamins Orally Active Gabapentin 600 MG Oral for 90 Not-Taking glyBURIDE 5 MG Oral for 30 Not -Taking Ferrous Sulfate 325 (65 Fe) MG 1 tablet Orally Once a day Not-Taking Atorvastatin Calcium 20 MG 1 tablet Orally Once a day Active Aspirin 81 MG 1 tablet Orally Once a day Active Spironolactone 25 MG 1 tablet Orally for 30 day(s) Active Folic Acid 1 MG Oral for 90 No t-Taking Creon Active Antibiotic Not-Takin g Levemir Active Extra Depth Diabetic Shoes with 3 Pair Custom heat-molded multi-density innersoles for 1 year Dx: 02/25/2021 Not-Taking NovoLOG sliding scale Active Metoprolol Succinate ER 50 MG 1 tablet Orally Once a day Not-Taking Pregabalin 100 MG 1 capsule Orally Three times a day Active Insulin Cartridge 3ML Not-Taking Calcitriol 0.25 MCG 1 capsule Orally Three times a Week Active FreeStyle Lancets for 90 No t-Taking Sodium Bicarbonate 650 MG as directed Orally Active FreeStyle Lite Test In Vitro for 90 Not-Taking Amoxicillin Active Tamsulosin HCl 0.4 MG 1 capsule Orally Once a day for 30 day(s) Not-Taking Omeprazole 40 MG 1 capsule 30 minutes before morning meal Orally Once a day for 30 day(s) Not-Taking Basaglar KwikPen Not -Taking Physical Therapy . . . 2-3x/week for 3-4 weeks Not-Taking Immunizations Vaccine Route Administration Date Status Comme nts COVID-19 [email or web address] Vaccine Unknown 04/25/2021 Administered 1st 09/18/2020 [...] Problem Acquired hammer toe of right foot (677757727683329 5) Other hammer toe(s) (acquired), right foot (M20.41) Active confirmed Problem Acquired hallux valgus (13582538) Hallux valgus (acquired), left foot (M20.12) Active confirmed Problem Acquired hammer toe of left foot (070555946976711 3) Other hammer toe(s) (acquired), left foot (M20.42) Active confirmed Problem Chronic ulcer of foot (054160294) Non-pressure chronic ulcer of other part of left foot with fat layer exposed (L97.522) Active confirmed Problem Polyneuropathy due to type 2 diabetes mellitus (517944237) Type 2 diabetes mellitus with diabetic polyneuropathy (E11.42) Active confirmed Problem Non-pressure chronic ulcer of other part of left foot limited to breakdown of skin (L97.521) Active confirmed Problem Polyneuropathy due to type 2 diabetes mellitus (207999678) Type 2 diabetes mellitus with diabetic polyneuropathy (E11.42) Active confirmed Problem Polyneuropathy due to diabetes mellitus type I (932657556) Type 1 diabetes mellitus with diabetic polyneuropathy (E10.42) Active confirmed Problem Acquired hallux rigidus (6763946) Hallux rigidus, right foot (M20.21) Active confirmed Problem Neuropathic ulcer of right foot (disorder) (370674569836244 02) Neuropathic ulcer of right foot, 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) Active confirmed Response to treatment Vital Signs Blood pressure diastolic 70 mm Hg 11/02/2024 Height 5ft 11in in 11/02/2024 Blood pressure systolic 120 mm Hg 11/02/2024 Weight 155 lbs 11/02/2024 BMI 21.62 kg/m2 11/02/2024 Procedures Procedure Date Ordered Date Performed Result Body Sit e 80285-WBJYXTU NAIL, 6 OR MORE 07/12/2024 N/A 01507-SWTT SKIN LESIONS, OVER 4 07/12/2024 N/A 40417-UEVAOID NAIL, 6 OR MORE 11/02/2024 N/A 74643-UFDR SKIN LESIONS, OVER 4 11/02/2024 N/A Encounters Encounter Location Date Provider Diagnosis [facility] [address] [place] [address] 12/16/2023 Zhang Luis Type 1 diabetes mellitus [...] foot limited to breakdown of skin L97.521 [facility] [address] 02/24/2024 Zhang Luis Type 1 diabetes mellitus with diabetic polyneuropathy E10.42 ; Tinea unguium B35.1 ; Pain in right toe(s) M79.674 ; Pain in left toe(s) M79.675 ; Hallux valgus (acquired), left foot M20.12 ; Skin disease L98.9 ; Hallux rigidus, right foot M20.21 ; Localized edema R60.0 ; Pain in left foot M79.672 and Pain in right foot M79.[address] [address] 05/04/2024 Zhang Luis Type 1 diabetes mellitus with diabetic polyneuropathy E10.42 ; Tinea unguium B35.1 ; Pain in right toe(s) M79.674 ; Pain in left toe(s) M79.675 ; Hallux valgus (acquired), left foot M20.12 ; Skin disease L98.9 ; Hallux rigidus, right foot M20.21 ; Localized edema R60.0 ; Pain in left foot M79.672 and Pain in right foot M79.671 [facility] [address] [place] [address] 07/12/2024 Ni Leone Other hammer toe(s) (acquired), right foot M20.41 ; Other hammer toe(s) (acquired), left foot M20.42 ; Type 2 diabetes mellitus with diabetic polyneuropathy E11.42 and Tinea unguium B35.1 [facility] [address] [address] 11/02/2024 Ni Leone Type 2 diabetes mellitus with diabetic polyneuropathy E11.42 ; Neuropathic ulcer of right foot, limited to breakdown of skin L97.511 and Tinea unguium B35.[address] [address] 12/16/2023 Zhang Toby Type 1 diabetes mellitus with diabetic polyneuropathy E10.[address] [address] 12/21/2023 Zhang Luis Assessments Encounter Date Diagnosis (ICD Code) Assessment Notes Treatment Notes Treatment Clinical Notes Section Notes 12/16/2023 Type 1 diabetes mellitus with diabetic [...] toe(s) (acquired), left foot (ICD-10 - M20.42) 11/02/2024 Type 2 diabetes mellitus with diabetic polyneuropathy (ICD-10 - E11.42) 11/02/2024 Neuropathic ulcer of right foot, limited to breakdown of skin (ICD-10 - L97.511) Patient Educated with: WOUND CARE INSTRUCTIONS. pdf (WOUND CARE INSTRUCTIONS. pdf) 11/02/2024 Tinea unguium (ICD-10 - B35.1) 07/12/2024 Type 2 diabetes mellitus with diabetic polyneuropathy (ICD-10 - E11.42) 05/04/2024 Tinea unguium (ICD-10 - B35.1) 02/24/2024 Tinea unguium (ICD-10 - B35.1) 12/16/2023 Tinea unguium (ICD-10 - B35.1) 12/16/2023 Pain in right toe(s) (ICD-10 - M79.674) 02/24/2024 Pain in right toe(s) (ICD-10 - M79.674) 05/04/2024 Pain in right toe(s) (ICD-10 - M79.674) 07/12/2024 Tinea unguium (ICD-10 - B35.1) 05/04/2024 Pain in left toe(s) (ICD-10 - M79.675) 02/24/2024 Pain in left toe(s) (ICD-10 - M79.675) 12/16/2023 Pain in left toe(s) (ICD-10 - M79.675) 12/16/2023 Hallux valgus (acquired), left foot (ICD-10 - M20.12) 12/16/2023 Skin disease (ICD-10 - L98.9) 02/24/2024 Skin disease (ICD-10 - L98.9) 02/24/2024 Hallux valgus (acquired), left foot (ICD-10 - M20.12) 05/04/2024 Hallux valgus (acquired), left foot (ICD-10 - M20.12) 05/04/2024 Skin disease (ICD-10 - L98.9) 12/16/2023 Hallux rigidus, right foot (ICD-10 - M20.21) 02/24/2024 Hallux rigidus, right foot (ICD-10 - M20.21) 02/24/2024 Localized edema (ICD-10 - R60.0) 12/16/2023 Localized edema (ICD-10 - R60.0) 05/04/2024 Hallux rigidus, right foot (ICD-10 - M20.21) 05/04/2024 Localized edema (ICD-10 - R60.0) 12/16/2023 Pain in left foot (ICD-10 - M79.672) 02/24/2024 Pain in left foot (ICD-10 - M79.672) 12/16/2023 Pain in right foot (ICD-10 - M79.671) 02/24/2024 Pain in right foot (ICD-10 - M79.671) 05/04/2024 Pain in left foot (ICD-10 - M79.672) 05/04/2024 Pain in right foot (ICD-10 - M79.671) 12/16/2023 Non-pressure chronic ulcer of other part of left foot limited to breakdown of skin (ICD-10 - L97.521) 11/02/2024 Other Patient Educated with: DIABETIC FOOT CARE INSTRUCTIONS. pdf (DIABETIC FOOT CARE INSTRUCTIONS. pdf) Plan Of Treatment Pending Test Test Name Order Date X ray : Foot, left 2V 01/08/2014 X ray : Foot, right 2V 01/08/2014 X ray : Foot, left 3V 02/25/2021 X ray : Foot, right 3V 02/25/2021 X ray : Foot, right 3V 12/31/2022 04378-QSNHMNX NAIL, 6 OR MORE 07/12/2024 57597-JWXHEQS NAIL, 6 OR MORE 11/02/2024 96126-AKJMFAT SKIN/TISSUE 10/07/2023 66961-LMZXMVN SKIN/TISSUE 04/30/2021 18276-JAKXLYZ SKIN/TISSUE 08/03/2021 77382-SCPY SKIN LESIONS, OVER 4 07/12/20 24 78680-PCQI SKIN LESIONS, OVER 4 11/03/19 25 86122-GRUN SKIN LESIONS, 2 TO 4 08/03/19 22 44109-ANOK SKIN LESIONS, 2 TO 4 04/30/20 21 19735-UJWI SKIN LESIONS, 2 TO 4 02/26/20 21 95849-FIYRKLJS OF HEMATOMA/FLUID 022 Next Appt Details Provider Name:Ni duncan, 11/16/2024 09:30:00 AM, [address] [facility], [address], [place], [address], Insurance Providers Payer Name Payer Address Payer Phone Subscriber Number Group Number Insured Name Patient Relationship to Insured Coverage Start Date Coverage End Date Medicare National Govt [facility] [address] [place] [address] [id number] Quentin Lara Self - patient is the insured [facility] [address] [place] [address] [phone] [id number] Quentin Lara Self - patient is [...] kidney sones, 3 day stay 01/23 04/15 [facility] ER- Coundn't get up/lanre d -KidneyLiver failure-swelling/Infection ICU few weeks -rehab 6wks 05/29/2021 [facility] - pneumonia 06/2013-1-14
--- OUTSIDE RECORDS SUMMARY | 2024-11-13 10:26 | XMS_ITS | Encounter Summary ---
Author Organization [facility] Address [address] [place] [address] Care Team Providers Care Building Services Coordinator Name Role Phone Rufino Rajput MD Primary Care Provider [phone] Francisco J Galeana MD Unavailable Orion Rodriguez MD Unavailable [phone] Kelby Celaya MD Unavailable [phone] System, Provider Not In Unavailable Unavaila ble Encounter Details Date Type Department Care Team (Late st Contact Info) Description 04/16/2024 Scanned Document [facility] [place] [address] Orion Rodriguez MD [address] [place] [address] Social History Tobacco Use Types Packs/Day Years [...] on filedocumented in this encounter Care Teams Building Services Coordinator Relationship Specialty Start Date End Date Rufino Rajput MD [address] [place] [address] PCP - General Internal Medicine 12/27/23 Francisco J Galeana MD [address] [place] [address] Cardiology-Scan 01/06/24 Orion Rodriguez MD [address] [place] [address] [address] [place] [address] Surgery, Orthopedic 01/10/24 Kelby Celaya MD [address] [place] [address] [address] [place] [address] Physician Nephrology 01/10/24 System, Provider Not In 01/10/24 documented as of this encounter
--- OUTSIDE RECORDS SUMMARY | 2024-11-13 10:26 | XMS_ITS | Clinical Summary ---
Author Organization [facility] Address [address] [place] [address] Phone Care Team Providers Care Automotive Parts Counter Assistant Name Role Phone Rufino Rajput MD Primary Care Provider [phone] Allergies Active Allergy Reactions Criticality Noted Date [...] into the skin at bedtime. Active pancrelipase, Sue-Xtnw-Cxzi, (CREON) 24,000-76,000 -120,000 unit capsule Take 1 [...] abnormal renal function. Aneurysm of ascending aorta ([facility] V24) 2019 Overview (04/24/2024): 11/2019 aortic root 4.4 cm [...] medical treatment. Will repeat lipid profile. Diabetes ([facility] V24, [facility] V28) 07/21/2020 Overview (04/24/2024): Last Assessment & Plan: Suggest him to call [place] office to get a new primary care physician. [...] been reduced due to the liver problem. Immunizations Name Administration Dates Next Due Influenza [...] [facility] H[facility] On[facility] [address] [place] [address] Radha Lambert PA [address] [place] [address] 03/01/2025 8:40 AM EDT Office Visit [facility] - [facility] [address] [facility] [address] [place] [phone] Emelina Haines NP [address] [place] [address] Health Maintenance Due Date Last Done Comments [...] Sugar Control Test (HGBA1C) 07/12/2024 01/11/2024, 01/11/2024 COVID-19 Vaccine (7 - Pfizer risk season) 2024 04/23/2024, 11/12/2022, 04/28/2022, Additional history exists Diabetes: Annual Urine Albumin-Creatinine Ratio (uACR) 04/20/2025 04/20/2024, 01/10/2024 Diabetes: Annual GFR (Glomerular Filtration Rate) 07/30/2025 07/30/2024, 07/16/2024, 05/17/2024, Additional history exists Hypertension/CHF/CAD Annual BMP Blood Test 07/30/2025 07/30/2024, 07/16/2024, 05/17/2024, Additional history exists DTaP,Tdap,and Td Vaccines (3 - Td or Tdap) 08/22/2028 08/22/2018, 04/26/2008 Cholesterol Screening (Lipid Panel) 07/30/2029 07/30/2024, 01/13/2023 Zoster Vaccines Completed 06/30/2022, 04/28/2022 RSV Immunization Adult Patients Completed 04/18/2023 Pneumococcal Vaccine: 50+ Years Completed 12/18/2023, 04/28/2022, 07/24/2013, Additional history exists Influenza Vaccine Completed 04/23/2024, [...] age to complete this topic Meningococcal B Vaccine Aged Out No l onger eligible based on patient's age to complete this topic RSV Immunization Patients Under 20 months Aged Out No longer eligible based on patient's age to complete this topic Varicella Vaccines Aged Out No longer eligible based on patient's age to complete this topic Procedures Procedure Name Priority Date/Time Associated Diagnosis Comments COMPREHENSIVE METABOLIC PANEL Routine 07/30/2024 9:57 AM EST Thrombocytopenia (CMS/HCC V24) LIPID PANEL WITH REFLEX TO DIRECT LDL Routine 07/30/2024 9:57 AM EST Chest pain due to myocardial ischemia, unspecified ischemic chest pain type HEMOGLOBIN A1C Routine 01/11/2024 HM URINE ALBUMIN CREATININE RATIO Routine 01/10/2024 from Last 3 Months or Most Recently Relevant to Health Maintenance Results * Lipid panel with reflex to direct LDL (07/30/2024 9:57 AM EST) Cholesterol 127 0 - 200 mg/dL LAB CHEMISTRY METHOD 07/30/2024 4:32 PM EST [facility] Triglycerides 140 0 - 150 mg/dL LAB CHEMISTRY METHOD 07/30/2024 4:32 PM [facility] HDL 68 >=40 mg/dL LAB CHEMISTRY METHOD 07/30/2024 4:32 PM [facility] LDL Calculated 31 0 - 100 mg/dL LAB CHEMISTRY METHOD 07/30/2024 4:32 PM EST [facility] VLDL Cholesterol Rick 28 mg/dL LAB CHEMISTRY METHOD 07/30/2024 4:32 PM [facility] Non HDL Chol. (LDL+VLDL) 59 <145 mg/dL LAB CHEMISTRY METHOD 07/30/2024 4:32 PM [facility] Chol/HDL Ratio 1.9 0.0 - 4.4 LAB CHEMISTRY METHOD 07/30/2024 4:32 PM [facility] Blood Venous blood specimen / Unknown Venipuncture / Unknown 07/30/2024 9:57 AM EST 07/30/2024 9:57 AM EST us Francisco J Galeana MD LAB BLOOD ORDERABLES Final Resul t [facility] [address] [place] [address], * (ABNORMAL) Comprehensive metabolic panel (07/30/2024 9:57 AM EST) Sodium 138 133 - 145 mmol/L LAB CHEMISTRY METHOD 07/30/2024 4:48 PM [facility] Comment:Results verified by repeat testing Potassium 4.5 3.5 - 5.5 mmol/L LAB CHEMISTRY METHOD 07/30/2024 4:48 PM [facility] Chloride 107 96 - 110 mmol/L LAB CHEMISTRY METHOD 07/30/2024 4:48 PM [facility] CO2 27 21 - 32 mmol/L LAB CHEMISTRY METHOD 07/30/2024 4:48 PM [facility] Anion Gap 4 3 - 11 LAB CHEMISTRY METHOD 07/30/2024 4:48 PM [facility] Glucose 68(L) 70 - 100 mg/dL LAB CHEMISTRY METHOD 07/30/2024 4:48 PM [facility] BUN 28(H) 5 - 25 mg/dL LAB CHEMISTRY METHOD 07/30/2024 4:48 PM [facility] Creatinine 2.44(H) 0.70 - 1.30 mg/dL LAB CHEMISTRY METHOD 07/30/2024 4:48 PM [facility] eGFR 28(L) >=60 mL/min/1. 73m2 LAB CHEMISTRY METHOD 07/30/2024 4:48 PM [facility] Comment:Calculation based on the??Chronic Kidney Disease Epidemiology Collaboration (CKD-EPI) equation refit??without adjustment for race. BUN/Creatinine Ratio 11.5 LAB CHEMISTRY METHOD 07/30/2024 4:48 PM [facility] Calcium 9.8 8.5 - 10.5 mg/dL LAB CHEMISTRY METHOD 07/30/2024 4:48 PM [facility] AST (SGOT) 28 10 - 42 unit/L LAB CHEMISTRY METHOD 07/30/2024 4:48 PM [facility] ALT (SGPT) 43 10 - 60 unit/L LAB CHEMISTRY METHOD 07/30/2024 4:48 PM [facility] Alkaline Phosphatase 84 42 - 121 unit/L LAB CHEMISTRY METHOD 07/30/2024 4:48 PM [facility] Total Protein 7.0 6.0 - 8.0 g/dL LAB CHEMISTRY METHOD 07/30/2024 4:48 PM [facility] Albumin 3.9 3.2 - 5.0 g/dL LAB CHEMISTRY METHOD 07/30/2024 4:48 PM EST [facility] Total Bilirubin 0.3 0.0 - 1.4 mg/dL LAB CHEMISTRY METHOD 07/30/2024 4:48 PM EST [facility] Blood Venous blood specimen / Unknown Venipuncture / Unknown 07/30/2024 9:57 AM EST 07/30/2024 9:57 AM EST Radha BOCANEGRA LAB BLOOD ORDERABLES Final Re sult [facility] [address] [place] [address], * Hemoglobin A1c (01/11/2024) Hemoglobin A1C 0.0 % Comment:No Interpretation Blood Venous blood specimen / Unknown Historical Provider LAB BLOOD ORDERABLES Gertrude l Result * Urine Albumin Creatinine Ratio (01/10/2024) Urine Albumin Creatinine Ratio Abstracted Historical Provider HEALTH MAINTENANCE Final Result from Last 3 Months or Most Recently Relevant to Health Maintenance Insurance MEDICARE [facility] Advance Directives Documents on File Type Date Recorded Patient Transcripter Expl anation Health Care Decision (hx) 06/04/2021 [...] (hx) 06/04/2021 AD LOPEZ DIRECTIVE Care Teams Automotive Parts Counter Assistant Relationship Specialty Start Date End Date Rufino Rajput MD [address] [place] [place] [address] PCP - General Internal Medicine 01/28/21
--- OUTSIDE RECORDS SUMMARY | 2024-11-13 10:26 | XMS_ITS ---
Author Organization [facility] Care Team Providers Care Agent Producer Name Role Phone Jesica Hansen Unavailable Unavailable Neela Rivera Unavailable Unavailable Kimberly Montalvo Unavailable Unavailable Allergies and adverse reactions No Known Allergies Care Team Name Role Address Phone Organization Dates Neela Rivera PCP [address] [facility] [address], [place], [address], [facility] (Office): [facility] 06/10/2021 - 07/09/2021 Jesica Hansen Attending Physician [address] [place] [address], [address], [facility] (Office): [facility] 06/10/2021 - 07/09/2021 Kimberly Montalvo Attending Physician [address] [facility] [address], [address], [facility] (Office): [facility] 06/10/2021 - 07/09/2021 Immunizations Immunization Status Vaccine Details Vaccine Code CodeSystem Date Notes SARS-COV-2 (COVID-19) completed SARS-COV-2 (COVID-19) vaccine, mRNA, spike protein, LNP, preservative free, 30 mcg/0.3mL dose Mfg: Intellicyt Step 1 of Multi-step 208 CVX created date: 06/11/2021 administere d date: 04/18/2021 Booster vaccine SARS-COV-2 (COVID-19) completed SARS-COV-2 (COVID-19) vaccine, mRNA, spike protein, LNP, preservative free, 30 mcg/0.3mL dose Mfg: Intell[employer]yt Step 2 of Multi-step with next step required 208 CVX created date: 06/11/2021 administere d date: 10/09/2020 SARS-COV-2 (COVID-19) completed SARS-COV-2 (COVID-19) vaccine, mRNA, spike protein, LNP, preservative free, 30 mcg/0.3mL dose Mfg: Intellicyt Step 1 of Multi-step with next step required 208 CVX created date: 06/11/2021 administere d date: 09/18/2020 Mental Status Section Date Assessment Total Score Description 07/09/2021 CAM 0 No delirium ind icated 06/16/2021 BIMS 14 cognitively int act CAM 0 No delirium ind icated [id number] 00 Problems Problem # Description Date of onset Resolved Date Code CodeSystem Concern Status 1 OTHER CHRONIC PANCREATITIS 06/11/[address] active 2 ACUTE KIDNEY FAILURE, UNSPECIFIED 06/10/[address] active 3 ALCOHOLIC CIRRHOSIS OF LIVER WITH ASCITES 06/10/[address] active 4 ANEMIA, UNSPECIFIED 06/10/[address] active 5 ATHEROSCLEROTIC HEART DISEASE OF [place] CORONARY ARTERY WITHOUT ANGINA PECTORIS 06/10/[address] active 6 BENIGN PROSTATIC HYPERPLASIA WITH LOWER URINARY TRACT SYMPTOMS 06/10/[address] active 7 CHRONIC HEPATIC FAILURE WITHOUT COMA 06/10/[address] active 8 DIFFICULTY IN WALKING, NOT ELSEWHERE CLASSIFIED 06/10/[address] active 9 ENCEPHALOPATHY, UNSPECIFIED 06/10/[address] active 10 GASTRO-ESOPHAGEAL REFLUX DISEASE WITHOUT ESOPHAGITIS 06/10/[address] active 11 GENERALIZED EDEMA 06/10/[address] active 12 HEPATIC FAILURE, UNSPECIFIED WITHOUT COMA 06/10/[address] active 13 HYPOTENSION, UNSPECIFIED 06/10/[address] active 14 MUSCLE WEAKNESS (GENERALIZED) 06/10/[address] active 15 NON-PRESSURE CHRONIC ULCER OF OTHER PART OF RIGHT FOOT WITH UNSPECIFIED SEVERITY 06/10/[address] active 16 OTHER SYMPTOMS AND SIGNS INVOLVING COGNITIVE FUNCTIONS AND AWARENESS 06/10/[address] active 17 SEPSIS, UNSPECIFIED ORGANISM 06/10/[address] active 18 SEVERE SEPSIS WITH SEPTIC SHOCK 06/10/[address] active 19 SPONTANEOUS BACTERIAL PERITONITIS 06/10/[address] active 20 THROMBOCYTOPENIA, UNSPECIFIED 06/10/[address] active 21 TYPE 2 DIABETES MELLITUS WITH DIABETIC CHRONIC KIDNEY DISEASE 06/10/[address] active 22 UNSPECIFIED CIRRHOSIS OF LIVER 06/10/[address] active 23 UNSPECIFIED PROTEIN-CALORIE MALNUTRITION 06/10/[address] active 24 UNSTEADINESS ON FEET 06/10/[address] active Reason for Referral No Reasons for Referral Entered Social History Social History Observation Description Start Date End Date Code Code System Current Smoking Status Tobacco smoking consumption unknown 227961673 SNOMED CT Sex Assigned At Male 1955 57661-0 [facility] Vital Signs Code Code System Vitals Name Values and Units Timing Information 2339-0 [facility] Blood Sugar Dojfe=028.0 Units=mg/dL 07/09/2021 11306-5 [facility] Pain Level Value=0.0 07/09/2021 53772-3 [facility] O2 % BldC Oximetry Vofnh=535.0 Units =% 07/09/2021 8310-5 [facility] Body Temperature Value=97.7 Units=?? F 07/09/2021 8867-4 [facility] Heart rate Value=73.0 Units=/min 8462-4 [facility] Blood Pressure-Diastolic Value=63 Un its=mmHg 07/09/2021 8480-6 [facility] Blood Pressure-Systolic Value=98 Uni ts=mmHg 07/09/2021 9279-1 [facility] Respiratory Rate Value=18.0 Units=/m in 07/09/2021 60271-6 [facility] Weight Hipdd=882.2 Units=Lbs 8302-2 [facility] Height Value=77.0 Units=Inches 06/11/2021
== END 2024-11-13 10:30 | disposition home or self-care (01) ==
LOC: HO.HMCC 09:30
PROVIDERS: PCP Internal Medicine; Visit Provider Internal Medicine
DX: E10.49 Type 1 diabetes mellitus with other diabetic neurological complication (principal); E10.42 Type 1 diabetes mellitus with diabetic polyneuropathy; I42.6 Alcoholic cardiomyopathy; N18.31 Chronic kidney disease, stage 3a; K86.0 Alcohol-induced chronic pancreatitis; E10.3599 Type 1 diabetes mellitus with proliferative diabetic retinopathy without macular edema, unspecified eye; I25.10 Atherosclerotic heart disease of native coronary artery without angina pectoris; E78.9 Disorder of lipoprotein metabolism, unspecified

== ENCOUNTER 2024-11-13 09:29 | Outpatient (REF) | payer MEDICARE, OTHER, SELFPAY ==
--- OUTSIDE RECORDS SUMMARY | 2024-11-13 11:37 | XMS_ITS | Encounter Summary ---
Author Organization [facility] Address [address] [place] [address] Phone Care Team Providers Care Interlocking And Signal Mechanic Name Role Phone Rufino Rajput MD Primary Care Provider [phone] Reason for Visit * Reason Comments Med Refill Encounter Details Date Type Department Care Team (Late Contact Info) Description 06/06/2021 Refill [facility] [address] [place] [address] Olayinka Saldana MD Social History [...] Visit [facility] [address] [facility] [address] [place] [address] Karen Plascencia ARNP [address] [facility] [address] [place] [address] documented as of this encounter Visit Diagnoses Not on filedocumented in this encounter Care Teams Interlocking And Signal Mechanic Relationship Specialty Start Date End Date Rufino Rajput MD [address] [place] [address] PCP - General Internal Medicine 04/06/21 documented as of this encounter
--- OUTSIDE RECORDS SUMMARY | 2024-11-13 11:37 | XMS_ITS | Clinical Summary ---
Author Organization [facility] Address [address] [place] [address] Care Team Providers Care Asset Protection Manager Name Role Phone Rufino Rajput MD Primary Care Provider [phone] Allergies Active Allergy Reactions Criticality Noted Date [...] total) by mouth daily. 0 Active pancrelipase, Tig-Nsuk-Nqkw, (CREON) [address] units CPEP Take 1 capsule (24,000 units [...] age to complete this topic Care Teams Asset Protection Manager Relationship Specialty Start Date End Date Rufino Rajput MD [address] [facility] [phone] PCP - General Internal Medicine 01/13/24
--- OUTSIDE RECORDS SUMMARY | 2024-11-13 11:38 | XMS_ITS | Clinical Summary ---
Author Organization [facility] Address [address] [place] [address] Phone Care Team Providers Care Correctional Substance Abuse Counselor Name Role Phone Rufino Rajput MD Primary Care Provider [phone] Allergies Active Allergy Reactions Criticality Noted Date [...] into the skin at bedtime. Active pancrelipase, Iqc-Qtpr-Osre, (CREON) 24,000-76,000 -120,000 unit capsule Take 1 [...] abnormal renal function. Aneurysm of ascending aorta ([facility] V24) 2019 Overview (04/24/2024): 11/2019 aortic root [...] medical treatment. Will repeat lipid profile. Diabetes ([facility] V24, [facility] V28) 07/21/2020 Overview (04/24/2024): Last Assessment & Plan: Suggest him to call [place] office to get a new primary care [...] Description 01/15/2025 9:30 AM EDT Office Visit [facility] Hematology Oncology [address] [place] [address] Radha Lambert PA [address] [place] [address] 03/01/2025 8:40 AM EDT Office Visit [facility] - [facility] [address] [facility] [address] [place] [phone] Emelina Haines NP [address] [place] [address] Health Maintenance Due Date Last Done Comments [...] LAB CHEMISTRY METHOD 07/30/2024 4:32 PM EST [facility] Triglycerides 140 0 - 150 mg/dL LAB CHEMISTRY METHOD 07/30/2024 4:32 PM [facility] HDL 68 >=40 mg/dL LAB CHEMISTRY METHOD 07/30/2024 4:32 PM [facility] LDL Calculated 31 0 - 100 mg/dL LAB CHEMISTRY METHOD 07/30/2024 4:32 PM EST [facility] VLDL Cholesterol Rick 28 mg/dL LAB CHEMISTRY METHOD 07/30/2024 4:32 PM [facility] Non HDL Chol. (LDL+VLDL) 59 <145 mg/dL LAB CHEMISTRY METHOD 07/30/2024 4:32 PM [facility] Chol/HDL Ratio 1.9 0.0 - 4.4 LAB CHEMISTRY METHOD 07/30/2024 4:32 PM [facility] Blood Venous blood specimen / Unknown Venipuncture / Unknown 07/30/2024 9:57 AM EST 07/30/2024 9:57 AM EST us Francisco J Galeana MD LAB BLOOD ORDERABLES Final Resul t [facility] [address] [place] [address], * (ABNORMAL) Comprehensive metabolic panel (07/30/2024 9:57 AM EST) Sodium 138 133 - 145 mmol/L LAB CHEMISTRY METHOD 07/30/2024 4:48 PM [facility] Comment:Results verified by repeat testing Potassium 4.5 3.5 - 5.5 mmol/L LAB CHEMISTRY METHOD 07/30/2024 4:48 PM [facility] Chloride 107 96 - 110 mmol/L LAB CHEMISTRY METHOD 07/30/2024 4:48 PM [facility] CO2 27 21 - 32 mmol/L LAB CHEMISTRY METHOD 07/30/2024 4:48 PM [facility] Anion Gap 4 3 - 11 LAB CHEMISTRY METHOD 07/30/2024 4:48 PM [facility] Glucose 68(L) 70 - 100 mg/dL LAB CHEMISTRY METHOD 07/30/2024 4:48 PM [facility] BUN 28(H) 5 - 25 mg/dL LAB CHEMISTRY METHOD 07/30/2024 4:48 PM [facility] Creatinine 2.44(H) 0.70 - 1.30 mg/dL LAB CHEMISTRY METHOD 07/30/2024 4:48 PM [facility] eGFR 28(L) >=60 mL/min/1. 73m2 LAB CHEMISTRY METHOD 07/30/2024 4:48 PM [facility] Comment:Calculation based on the??Chronic Kidney Disease Epidemiology Collaboration (CKD-EPI) equation refit??without adjustment for race. BUN/Creatinine Ratio 11.5 LAB CHEMISTRY METHOD 07/30/2024 4:48 PM [facility] Calcium 9.8 8.5 - 10.5 mg/dL LAB CHEMISTRY METHOD 07/30/2024 4:48 PM [facility] AST (SGOT) 28 10 - 42 unit/L LAB CHEMISTRY METHOD 07/30/2024 4:48 PM [facility] ALT (SGPT) 43 10 - 60 unit/L LAB CHEMISTRY METHOD 07/30/2024 4:48 PM [facility] Alkaline Phosphatase 84 42 - 121 unit/L LAB CHEMISTRY METHOD 07/30/2024 4:48 PM [facility] Total Protein 7.0 6.0 - 8.0 g/dL LAB CHEMISTRY METHOD 07/30/2024 4:48 PM [facility] Albumin 3.9 3.2 - 5.0 g/dL LAB CHEMISTRY METHOD 07/30/2024 4:48 PM EST [facility] Total Bilirubin 0.3 0.0 - 1.4 mg/dL LAB CHEMISTRY METHOD 07/30/2024 4:48 PM EST [facility] Blood Venous blood specimen / Unknown Venipuncture / Unknown 07/30/2024 9:57 AM EST 07/30/2024 9:57 AM EST Radha BOCANEGRA LAB BLOOD ORDERABLES Final Re sult [facility] [address] [place] [address], * Hemoglobin A1c (01/11/2024) Hemoglobin A1C 0.0 % Comment:No Interpretation Blood Venous blood specimen / Unknown Historical Provider LAB BLOOD ORDERABLES Gertrude l Result * Urine Albumin Creatinine Ratio (01/10/2024) Urine Albumin Creatinine Ratio Abstracted Historical Provider HEALTH MAINTENANCE Final Result from Last 3 Months or Most Recently Relevant to Health Maintenance Insurance MEDICARE [facility] Advance Directives Documents on File Type Date Recorded Patient Waiter/Waitress Cafeteria Expl anation Health Care Decision (hx) 06/04/2021 [...] (hx) 06/04/2021 AD LOPEZ DIRECTIVE Care Teams Correctional Substance Abuse Counselor Relationship Specialty Start Date End Date Rufino Rajput MD [address] [facility] [place] [address] PCP - General Internal Medicine 01/28/21
--- OUTSIDE RECORDS SUMMARY | 2024-11-13 11:38 | XMS_ITS | Clinical Summary ---
Author Organization [facility] Address [address] [place] [address] Care Team Providers Care Membership Correspondent Name Role Phone Rufino Rajput MD Primary Care Provider Francisco J Galeana MD Unavailable Orion Rodriguez MD Unavailable [phone] Kelby Celaya MD Unavailable [phone] System, Provider Not In Unavailable Unavaila [...] needed by sublingual route. Active pancrelipase (Creon) [address] Particles Take 1 capsule [...] before surgery). Coronary artery disease invo lving [place] heart without angina pectoris 01/08/2024 Assessment & Plan (01/10/2024 7:13 PM EDT): [place] Follows with cardiology. Cardiac clearance scheduled 01/24/24 [...] 10:00 AM EST Ancillary Procedure [facility] [address] [address] 09/11/2024 9:45 AM EST Office Visit [facility] [address] [address] Monique Gay APRN Hallux valgus (acquired), left [...] this topic Medical Devices Implanted Type Area Energy Efficiency Finance Manager Device Identifier Shelf Expiration Date Model / Serial / Lot 620-005 Filler Bone Void 5cc 12.5cc Calcium Slf Stimulan Rpd Cure - [id number] Implanted:Qty : 1 on 02/03/2024 by Orion Rodriguez MD at [facility] Void Filler Right: Foot [place] [employer] [id number] 03/24/2026 620-005 / / [id number] Procedures Procedure Name Priority Date/Time Associated Diagnosis Comments XR FOOT WEIGHT BEARING 3 VIEWS-LEFT Routine 09/11/2024 10:05 AM EST Hallux valgus (acquired), left foot HEMOGLOBIN A1C WITH ESTIMATED AVERAGE GLUCOSE Routine 01/11/2024 12:22 PM EDT Preop examination Painful orthopaedic hardware (HCC) Acute osteomyelitis of right ankle or foot (HCC) Peripheral polyneuropathy Essential hypertension Pure hypercholesterolemia Coronary artery disease involving [place] heart without angina pectoris, unspecified vessel or [...] hypertension Pure hypercholesterolemia Coronary artery disease involving [place] heart without angina pectoris, unspecified vessel or [...] performed in office at [facility] and images reviewed by orthopedic provider. ??Any findings are documented within ambulatory encounter note on date of service. Monique Gay APRN IMNori DIAGNOSTIC IMAGING OR DERABLES Final Result [facility] * (ABNORMAL) Hemoglobin A1c with Estimated Average Glucose (01/11/2024 12:22 PM EDT) Hemoglobin A1C 7.4(H) <5.7 % 01/11/2024 8:16 PM T [facility] Comment: A1c% ? Interpretation 5.7 - 6.0 ?Increase risk of diabetes 6.1 - 6.4 ?Higher risk of diabetes > or = 6.5 ?? Consistent with diabetes Diabetes Care, 33(Supp 1):S1-S61, 2010 Estimated Average Glucose 166 mg/dL 01/11/2024 8:16 PM EDT [facility] Blood Blood specimen / Unknown 01/11/2024 12:22 PM EDT 01/11/2024 7:01 PM EDT Kaykay Bailey [facility] [place] [address], [place] [address] * (ABNORMAL) Basic Metabolic Panel (01/11/2024 12:22 PM EDT) Glucose 231(H) 65 - 99 mg/dL 01/11/2024 7:38 PM [facility] Comment:Fasting: <100 mg/dL, Non-Fasting: <200 mg/dL (ADA 2004) Blood Urea Nitrogen (BUN) 34(H) 8 - 21 mg/dL 01/11/2024 7:38 PM [facility] Creatinine 2.1(H) 0.5 - 1.3 mg/dL 01/11/2024 7:38 PM [facility] eGFR 34(L) >59 01/11/2024 7:38 PM [facility] Comment:CKD-EPI (2020) in mL /min/1.73 sq meters. Sodium 138 136 - 145 mmol/L 01/11/2024 7:38 PM [facility] Potassium 5.2 3.4 - 5.3 mmol/L 01/11/2024 7:38 PM [facility] Chloride 108(H) 98 - 107 mmol/L 01/11/2024 7:38 PM EDT [facility] CO2 19(L) 22 - 33 mmol/L 01/11/2024 7:38 PM EDT [facility] Anion Gap 11 7 - 17 01/11/2024 7:38 PM EDT [facility] Calcium 9.0 8.7 - 10.5 mg/dL 01/11/2024 7:38 PM EDT [facility] BUN/Creatinine Ratio 16 10.0 - 25.0 Ratio 01/11/2024 7:38 PM EDT [facility] Blood (Plasma/Serum) 01/11/2024 12:22 PM EDT 01/11/2024 7:01 PM EDT Kaykay Arorashenavida [facility] [place] [address], [place] [address] from Last 3 Months or Most Recently Relevant to Health Maintenance Insurance MEDICARE PART A & [place] [id number] [facility] MEDICARE PART A & B [facility] Advance Directives * Full Code (Latest Code Status on File) Date Activated Date Inactivated Comments 02/03/2024 7:41 AM Care Teams Membership Correspondent Relationship Specialty Start Date End Date Rufino Rajput MD [address] [place], [place] PCP - General Internal Medicine 12/27/23 Francisco J Galeana MD [facility] [place], [place] Cardiology-Scan 01/06/24 Orion Rodriguez MD [address] [place] [address] [address] [place] [address] Surgery, Orthopedic 01/10/24 Kelby Celaya MD 100 [facility] [address] [place] [address] Physician Nephrology 01/10/24 System, Provider Not In 01/10/24
--- OUTSIDE RECORDS SUMMARY | 2024-11-13 11:38 | XMS_ITS ---
Author Organization [facility] Care Team Providers Care Cerner Analyst Name Role Phone Jesica Hansen Unavailable Unavailable Neela Rivera Unavailable Unavailable Kimberly Montalvo Unavailable Unavailable Allergies and adverse reactions No Known Allergies Care Team Name Role Address Phone Organization Dates Neela Rivera PCP [address] [facility] [address], [place], [address], [facility] (Office): [facility] 06/10/2021 - 07/09/2021 Jesica Hansen Attending Physician [address] [place] [address], [address], [facility] (Office): [facility] 06/10/2021 - 07/09/2021 Kimberly Montalvo Attending Physician [address] [facility] [address], [address], [facility] (Office): [facility] 06/10/2021 - 07/09/2021 Immunizations Immunization Status Vaccine Details Vaccine Code CodeSystem Date Notes SARS-COV-2 (COVID-19) completed SARS-COV-2 (COVID-19) vaccine, mRNA, spike protein, LNP, preservative free, 30 mcg/0.3mL dose Mfg: [employer]Box Step 1 of Multi-step 208 CVX created date: 06/11/2021 administere d date: 04/18/2021 Booster vaccine SARS-COV-2 (COVID-19) completed SARS-COV-2 (COVID-19) vaccine, mRNA, spike protein, LNP, preservative free, 30 mcg/0.3mL dose Mfg: [employer] Step 2 of Multi-step with next step required 208 CVX created date: 06/11/2021 administere d date: 10/09/2020 SARS-COV-2 (COVID-19) completed SARS-COV-2 (COVID-19) vaccine, mRNA, spike protein, LNP, preservative free, 30 mcg/0.3mL dose Mfg: [employer] Step 1 of Multi-step with next step [...] Concern Status 1 OTHER CHRONIC PANCREATITIS 06/11/[address] active 2 ACUTE KIDNEY FAILURE, UNSPECIFIED 06/10/[address] active 3 ALCOHOLIC CIRRHOSIS OF LIVER WITH ASCITES 06/10/[address] active 4 ANEMIA, UNSPECIFIED 06/10/[address] active 5 ATHEROSCLEROTIC HEART DISEASE OF [place] CORONARY ARTERY WITHOUT ANGINA PECTORIS 06/10/[address] active 6 BENIGN PROSTATIC HYPERPLASIA WITH LOWER URINARY TRACT SYMPTOMS 06/10/[address] active 7 CHRONIC HEPATIC FAILURE WITHOUT COMA 06/10/[address] active 8 DIFFICULTY IN WALKING, NOT ELSEWHERE CLASSIFIED 06/10/[address] active 9 ENCEPHALOPATHY, UNSPECIFIED 06/10/[address] active 10 GASTRO-ESOPHAGEAL REFLUX DISEASE WITHOUT ESOPHAGITIS 06/10/[address] active 11 GENERALIZED EDEMA 06/10/[address] active 12 HEPATIC FAILURE, UNSPECIFIED WITHOUT COMA 06/10/[address] active 13 HYPOTENSION, UNSPECIFIED 06/10/[address] active 14 MUSCLE WEAKNESS (GENERALIZED) 06/10/[address] active 15 NON-PRESSURE CHRONIC ULCER OF OTHER PART OF RIGHT FOOT WITH UNSPECIFIED SEVERITY 06/10/[address] active 16 OTHER SYMPTOMS AND SIGNS INVOLVING COGNITIVE FUNCTIONS AND AWARENESS 06/10/[address] active 17 SEPSIS, UNSPECIFIED ORGANISM 06/10/[address] active 18 SEVERE SEPSIS WITH SEPTIC SHOCK 06/10/[address] active 19 SPONTANEOUS BACTERIAL PERITONITIS 06/10/[address] active 20 THROMBOCYTOPENIA, UNSPECIFIED 06/10/[address] active 21 TYPE 2 DIABETES MELLITUS WITH DIABETIC CHRONIC KIDNEY DISEASE 06/10/[address] active 22 UNSPECIFIED CIRRHOSIS OF LIVER 06/10/[address] active 23 UNSPECIFIED PROTEIN-CALORIE MALNUTRITION 06/10/[address] active 24 UNSTEADINESS ON FEET 06/10/[address] active Reason for Referral No Reasons for Referral Entered Social History Social History Observation Description Start Date End Date Code Code System Current Smoking Status Tobacco smoking consumption unknown 607382834 SNOMED CT Sex Assigned At Male 1955 51375-3 [facility] Vital Signs Code Code System Vitals Name Values and Units Timing Information 2339-0 [facility] Blood Sugar Wmrlc=273.0 Units=mg/dL 07/09/2021 84036-9 [facility] Pain Level Value=0.0 07/09/2021 47664-3 [facility] O2 % BldC Oximetry Xnuph=945.0 Units =% 07/09/2021 8310-5 [facility] Body Temperature Value=97.7 Units=?? F 07/09/2021 8867-4 [facility] Heart rate Value=73.0 Units=/min 8462-4 [facility] Blood Pressure-Diastolic Value=63 Un its=mmHg 07/09/2021 8480-6 [facility] Blood Pressure-Systolic Value=98 Uni ts=mmHg 07/09/2021 9279-1 [facility] Respiratory Rate Value=18.0 Units=/m in 07/09/2021 59940-5 [facility] Weight Yaozs=846.2 Units=Lbs 8302-2 [facility] Height Value=77.0 Units=Inches 06/11/2021
--- OUTSIDE RECORDS SUMMARY | 2024-11-13 11:38 | XMS_ITS | Clinical Summary ---
Author Organization [facility] Address [address] [facility] [address] [place] [address] Phone Care Team Providers Care Comber Tender Name Role Phone Rufino Rajput MD Primary Care Provider [phone] Allergies Active Allergy Reactions Criticality Noted Date [...] 1 (one) time each day Active pancrelipase, Hbu-Iecg-Lomj, (CREON) 39467-41261 units capsule Take 1 capsule by mouth [...] 11/15/2013 Overview (04/24/2024): STORY: DOMINGO BURROWS RN [phone]/ANA PAULA IMPRESSION: BASED ON HOME MEASUREMENTS CONTROL [...] ( severe disability ) on ; initial [place]: 13 on 01/27/17 Glaucoma 09/04/2021 09/04/2021 H/O: [...] Visit [facility] P.CVelvet [address] [address] Plascencia KarenSHAHRZAD [address] [address] Health Maintenance Due Date Last [...] mg/dl PVNMA 07/22/2020 us [facility] [id number] LICITED RESULTS Final Result PVNMA from Last 3 Months or Most Recently Relevant to Health Maintenance [place] [address] Medicare [facility] Medicare Care Teams Comber Tender Relationship Specialty Start Date End Date Rufino Rajput MD [address] [place] [address] PCP - General Internal Medicine 04/06/21
--- OUTSIDE RECORDS SUMMARY | 2024-11-13 11:38 | XMS_ITS | Encounter Summary ---
Author Organization [facility] Address [address] [place] [address] Care Team Providers Care Aircraft Navigator Name Role Phone Rufino Rajput MD Primary Care Provider [phone] Francisco J Galeana MD Unavailable Orion Rodriguez MD Unavailable Kelby Celaya MD Unavailable [phone] System, Provider Not In Unavailable Unavaila ble Encounter Details Date Type Department Care Team (Late st Contact Info) Description 04/16/2024 Scanned Document [facility] [address] Orion Rodriguez MD [address] [place] [address] Social History Tobacco Use Types Packs/Day Years [...] on filedocumented in this encounter Care Teams Aircraft Navigator Relationship Specialty Start Date End Date Rufino Rajput MD [address] [place] [address] PCP - General Internal Medicine 12/27/23 Francisco J Galeana MD [address] [place] [address] Cardiology-Scan 01/06/24 Orion Rodriguez MD [address] [place] [address] [address] [place] [address] Surgery, Orthopedic 01/10/24 Kelby Celaya MD [address] [place] [address] [address] [place] [address] Physician Nephrology 01/10/24 System, Provider Not In 01/10/24 documented as of this encounter
[2024-11-13 13:42] LABS: Basophils Percent Auto 0.5 % (0-2); Eosinophils Absolute Auto 0.2 X10*3/uL (0.0-0.4); Hematocrit 34.3 % (42.0-52.0); Hemoglobin 11.1 g/dl (14.0-18.0); Imm Gran Abs Auto 0.01 X10*3/uL (0.00-0.03); Imm Gran Pct Auto 0.2 % (0.0-0.4); Lymphocytes Absolute Auto 1.4 X10*3/uL (1.2-4.9); Lymphocytes Percent Auto 25.6 % (20-40); Mean Corpuscular HGB Conc 32.4 g/dl (31.0-36.0); Mean Corpuscular Hemoglobin 30.9 pg (27.0-33.0); Mean Corpuscular Volume 95.5 fL (80.0-98.0); Mean Platelet Volume 12.3 fL (9.4-12.4); Monocytes Absolute Auto 0.5 X10*3/uL (0.1-1.2); Monocytes Percent Auto 9.5 % (2-11); Neutrophils Absolute Auto 3.4 x10*3/uL (2.0-8.3); Neutrophils Percent Auto 61.2 % (45-73); Red Blood Count 3.59 X10*6/uL (4.60-5.80); Red Cell Distribution Width 13.7 % (11.0-16.0); White Blood Count 5.6 X10*3/uL (4.8-10.8)
[2024-11-13 13:45] LABS: Estimated Average Glucose 140 mg/dL; Hemoglobin A1C 140.6589 umol/L; Hemoglobin A1c % 6.5 % (<6.0); Total Hemoglobin (HGBA1C) 2964.1296 umol/L
[2024-11-13 13:59] LABS: MANUAL DIFF FLAG SCAN; Platelet Count 89 X10*3/uL (160-400)
[2024-11-13 14:08] LABS: Alanine Aminotransferase 47 U/L (0-40); Alkaline Phosphatase 65 U/L (39-117); Anion Gap 12 (12-20); Aspartate Amino Transferase 35 U/L (5-37); Bilirubin Total 0.3 mg/dL (0.0-1.0); Blood Urea Nitrogen 51 mg/dL (9-16); Calcium 8.9 mg/dL (8.4-10.2); Carbon Dioxide 21 mmol/L (22-29); Chloride 112 mmol/L (96-108); Estimated Glomerular Filt Rate 24; Glucose Random 142 mg/dL (60-115); Sodium 140 mmol/L (135-145); Total Protein 6.6 g/dL (6.5-8.0)
[2024-11-13 14:12] LABS: SLIDE REVIEW VERIFIED
== END 2024-11-13 09:30 | disposition home or self-care (01) ==
LOC: HO.HMGCLDS 09:29
PROVIDERS: PCP Internal Medicine; Visit Provider Internal Medicine
DX: E10.49 Type 1 diabetes mellitus with other diabetic neurological complication (principal); E10.42 Type 1 diabetes mellitus with diabetic polyneuropathy; E10.3599 Type 1 diabetes mellitus with proliferative diabetic retinopathy without macular edema, unspecified eye; I25.10 Atherosclerotic heart disease of native coronary artery without angina pectoris; E78.9 Disorder of lipoprotein metabolism, unspecified; I42.6 Alcoholic cardiomyopathy; I12.9 Hypertensive chronic kidney disease with stage 1 through stage 4 chronic kidney disease, or unspecified chronic kidney disease; E10.22 Type 1 diabetes mellitus with diabetic chronic kidney disease; N18.31 Chronic kidney disease, stage 3a; K86.0 Alcohol-induced chronic pancreatitis; Z79.4 Long term (current) use of insulin; D64.9 Anemia, unspecified; N40.0 Benign prostatic hyperplasia without lower urinary tract symptoms; K21.9 Gastro-esophageal reflux disease without esophagitis
CPT/HCPCS: 36415; 80053; 83036; 85025; 96127; 99212

== ENCOUNTER 2025-02-15 10:04 | Outpatient (AMB) | payer MEDICARE, OTHER, SELFPAY ==
--- OUTSIDE RECORDS SUMMARY | 2025-02-15 10:23 | XMS_ITS | Clinical Summary ---
Author Organization [facility] Address [address] [place] [address] Care Team Providers Care Can Dragger Name Role Phone Rufino Rajput MD Primary Care Provider [phone] Allergies Active Allergy Reactions Criticality Noted Date [...] total) by mouth daily. 0 Active pancrelipase, Drb-Nyjn-Uofn, (CREON) 22696-14[address] units CPEP Take 1 capsule (24,000 units [...] 66 01/17/2024 11:34 AM EDT Temperature 36.9 C (98.4 F) 01/17/2024 11:34 AM EDT Respiratory Rate - - Oxygen Saturation 99% [...] 2024 04/18/2021, 10/09/2020, 09/18/2020 Influenza Vaccine (#1) 2025 9, 04/21/2018, 04/22/2017, Additional history exists DTap [...] age to complete this topic Care Teams Can Dragger Relationship Specialty Start Date End Date Rufino Rajput MD [address] [facility] [place] [address] PCP - General Internal Medicine 01/13/24
--- OUTSIDE RECORDS SUMMARY | 2025-02-15 10:23 | XMS_ITS | Encounter Summary ---
Author Organization [facility] Address [address] [place] [address] Phone Care Team Providers Care Route Sales Trainee Name Role Phone Rufino Rajput MD Primary Care Provider Reason for Visit * Reason Comments Med Refill Encounter Details Date Type Department Care Team (Late Contact Info) Description 06/06/2021 Refill [facility] [address] [place] [address] Olayinka Saldana MD Social History Tobacco [...] Department Care Team (Late Contact Info) Description 03/05/2025 11:30 AM EDT Office Visit [facility] [address] [facility] [address] [place] [address] Kelby Celaya MD [address] [facility] [address] [place] [address] 04/26/2025 9:00 AM EDT Office Visit [facility] [address] [address] Kelby Celaya MD [address] [address] documented as of this encounter Visit Diagnoses Not on filedocumented in this encounter Care Teams Route Sales Trainee Relationship Specialty Start Date End Date Rufino Rajput MD [address] [place] [address] PCP - General Internal Medicine 04/06/21 documented as of this encounter
--- OUTSIDE RECORDS SUMMARY | 2025-02-15 10:23 | XMS_ITS | Encounter Summary ---
Author Organization [facility] Address [address] [place] [address] Care Team Providers Care Punch Machine Hand Name Role Phone Rufino Rajput MD Primary Care Provider [phone] Francisco J Galeana MD Unavailable Unavailable Orion Rodriguez MD Unavailable [phone] Kelby Celaya MD Unavailable [phone] System, Provider Not In Unavailable Unavaila ble Encounter Details Date Type Department Care Team (Late st Contact Info) Description 01/18/2024 Scanned Document [facility] [address] [place] [address] Dee Zhong [address] [facility] [address] [place] [address] Social History Tobacco Use Types Packs/Day Years [...] on filedocumented in this encounter Care Teams Punch Machine Hand Relationship Specialty Start Date End Date Rufino Rajput MD [address] [place], [place] PCP - General Internal Medicine 12/27/23 Francisco J Galeana MD [address] [place], [place] Cardiology-Scan 01/06/24 Orion Rodriguez MD [address] [place] [address] Surgery, Orthopedic 01/10/24 Kelby Celaya MD [address] [address] Physician Nephrology 01/10/24 System, Provider Not In 01/10/24 documented as of this encounter
--- OUTSIDE RECORDS SUMMARY | 2025-02-15 10:23 | XMS_ITS | Data Portability ---
Author Organization [facility], Main Office Address [address] [facility] [address] [place] [address] Care Team Providers Care Mine Car Mechanic Name Role Phone GLYNN HERNÁNDEZ Primary Care Provider SATHISH BRISENO Drug Department Worker JACKY ROUSE Personalized Living Manager KATIE NAVARRO Cork Mixer KATHE FITZPATRICK Cork Floor Installer JESSICA MINAYA Liner Inserter SEBASTIEN LINK Traffic Maintenance Supervisor Assessment No assessment recorded. Plan of Treatment Reminders Order Date Submit Date Provider Last Modified By Organization Details Last Modified Time Details Appointments None recorded. Lab hemoglobi n A1C, fingersti ck 2018 019 [email or web address] In-Office Order, Internal Use Only DO Not Attach Compendium DO Not Attach Compendium, Do Not Delete/merge, [id number] 9 16:07:07 HbA1c (hemoglob in A1c), blood 2018 019 KATHY [facility], [address], [address], [place], [address], 9 22:21:36 HbA1c (hemoglob in A1c), blood 2018 019 [facility], [address], [place], [address], 9 22:21:53 CMP, serum or plasma 2018 019 [facility], [address], [address], [place], [address], 9 18:48:40 urinalysi s, complete 2018 019 [facility], [address], [address], [place], [address], 9 18:33:34 CBC w/ auto diff 2018 019 [facility], [address], [address], [place], [address], 9 18:49:41 HbA1c (hemoglob in A1c), blood 2018 019 [facility], [address], [address], [place], [address], 9 22:55:14 ESR (erythroc yte sedimenta tion rate), blood 2018 019 [facility], [address], [address], [place], [address], 9 20:12:23 activated partial thrombopl astin time, coagulati on assay, blood 2018 019 [facility], [address], [address], [place], [address], 9 19:34:47 PT/INR 2018 019 [facility], [address], [address], [place], [address], 9 19:44:19 CMP, serum or plasma 2018 019 [facility], [address], [address], [place], [address], 9 19:58:54 CBC w/ auto diff 2018 019 [facility], [address], [address], [place], [address], 9 19:39:56 PSA, serum or plasma 2018 019 [facility], [address], [address], [place], [place], [address], 9 15:15:17 BMP, serum or plasma 2018 019 [facility], [address], [address], [place], [place], [address], 9 15:27:39 CBC w/ auto diff 2018 019 [facility], [address], [address], [place], [place], [address], 9 13:47:02 iron + total iron-bind ing capacity (TIBC), serum 2018 019 [facility], [address], [address], [place], [address], 9 16:15:02 Referral pain managemen t referral - for follow up on pt with chronic worsenign neuropath y 2018 019 tfrisino [facility], [address] [place], [address], 9 09:41:11 diabetic ophthalmo logy referral 2018 019 KATHY Not available 9 17:39:39 gastroent erologist referral - for eval of pt with anemia and wt loss 2018 019 jeri Minaya MD, [address] [place], [address], 9 17:45:57 nutrition ist/dieti aneudy referral 2018 019 KATHY Not available 9 16:40:32 Procedures None recorded. Surgeries None recorded. Imaging None recorded. Medication Orders Lantus Solostar U-100 Insulin 100 unit/mL (3 mL) subcutane ous pen 2018 019 [email or web address] [facility]/Pharmacy #[id number], [address] [place] [address], [place], [address], 9 16:07:07 mirtazapi ne 30 mg tablet 2018 019 INTERFACE [facility]/Pharmacy #2339, [address] [place] [address], [place], [address], 9 09:37:51 venlafaxi ne ER 75 mg capsule,e xtended release 24 hr 2018 019 [facility]/Pharmacy #2339, [address] [place] [address], [place], [address], 9 11:06:36 mirtazapi ne 15 mg tablet 2018 019 berenice [facility]/Pharmacy #2339, [address] [place] [address], [place], [address], 9 16:22:14 venlafaxi ne ER 75 mg capsule,e xtended release 24 hr 2018 019 [facility]/Pharmacy #2339, [address] [place] [address], [place], [address], 9 11:06:36 Nitrostat 0.4 mg sublingua l tablet 2018 019 INTERFACE [facility]/Pharmacy #2339, [address] [place], [place] [address], [address], 9 10:55:03 Patient Targets Encounter Date Encounter Id Patient Goals Patient Target Last Modified By Organization Details Last Modified Time 01/03/2019 [id number] Ongoing of Microalbumin/Cre atinine Ratio yearly Not [...] <100 Not available Not available Not available 01/03/2019 [id number] Pt advised and agrees to do moderate [...] By Organization Details Last Modified Time 09/19/2018 [id number] Nutrition Referral and Weight Management Follow-up Information berenice Not available 09/19/2018 10:55:01 anemia: care instructions awychowski Not available 09/19/2018 10:55:01 10/20/2018 [id number] Diabetic Foot Exam awychowski Not available 10/20/2018 14:44:18 Diabetic Eye Exam awychowski Not available 10/20/2018 14:44:18 depression treatment: care instructions awychowski Not available 10/20/2018 14:44:18 anemia: care instructions awychowski Not available 10/20/2018 14:44:18 Alternate venlafaxine 150mg/75mg for 2 weeks after starting mirtazepine. If feeling fine go down to 75mg daily on the venlafaxine and continue with the mirtazepine until your next appt. [email or web address] Not available 10/20/2018 14:49:41 11/17/2018 [id number] learning about type 2 diabetes nbarrows Not available 12/05/2018 09:37:50 type 2 diabetes: care instructions nbarrows Not available 12/05/2018 09:37:50 high blood pressure: care instructions awychowski Not available 11/17/2018 16:40:11 learning about high blood pressure awychowski Not available 11/17/2018 16:40:11 12/19/2018 [id number] depression treatment: care instructions awychowski Not available 12/19/2018 11:34:58 high blood pressure: care instructions awychowski Not available 12/19/2018 11:34:58 learning about high blood pressure awychowski Not available 12/19/2018 11:34:58 non fasting labs in 4 weeks. awychowski Not available 12/19/2018 11:34:56 01/03/2019 [id number] hypoglycemia: care instructions Not available 01/03/2019 16:07:07 Medications (OTC, herbal therapies, supplements) reviewed and reconciled with patient and or caregiver, including potential side effects, drug interactions, instructions, and the consequences of not taking medication. Reviewed potential barriers to medication adherence, such as side effects from medication or cost of medication. [email or web address] Not available 01/03/2019 14:22:39 Reason for Referral Chemist Proteins/dietitian Refer ral for Underweight Referring Physician: Glynn Hernández [facility], Encounter Date: 09/19/2018 Diabetic Ophthalmology Refer ral for Diabetic distal sensorimotor polyneuropathy Referring Physician: Glynn Hernández [facility], Encounter Date: 10/20/2018 Liner Inserter Referral for Anemia for eval of pt with anemia and wt loss Referring Physician: Glynn Hernández [facility], Encounter Date: 10/20/2018 Pain Management Referral for Diabetic distal sensorimotor polyneuropathy for follow up on pt with chronic worsenign neuropathy Referring Physician: Glynn Hernández [facility], Encounter Date: 11/17/2018 Results Created Date Observation Date Name Description Value Unit Range Abnormal Flag Note LastModifiedBy Organization Detail LastModifiedTime 08/22/1908/22/2018 CBC w/ auto diff WBC 8.6 K/mm3 (4.0-1 1.0) Not Available [facility] (Centralized Electronic Ordering - All Locations) Patient Can Go To The Location Of Their Choice, [id number] 08/22/2018 15:48:49 08/22/1908/22/2018 CBC w/ auto diff RBC 3.29 M/mm3 (4.70- 6.10) low Not Available [facility] (Centralized Electronic Ordering - All Locations) Patient Can Go To The Location Of Their Choice, [id number] 08/22/2018 15:48:49 08/22/1908/22/2018 CBC w/ auto diff [...] of 2017 vitam in B12 assay formu latcher n has been modif ied. As a [...] To The Location Of Their Choice, 09/19/2018 13:47:09/19/1909/19/2018 CBC w/ auto diff plt 250 K/mm3 [...] TEST PERFO RMED USING THE VETO ELECT [employer] CENCE TOTAL PSA ASSAY . PSA VALUE S OBTAI DARYN WITH OTHER ASSAY METHO DS OR KITS CANNO T BE USED INTER WILL EABLY . Not Available [facility] (Centralized Electronic Ordering - All Locations) Patient Can Go To The Location Of Their Choice, 09/19/2018 15:15:17 09/19/19 19 09/19/2018 BMP, serum [...] 15:27:39 09/19/1909/19/2018 BMP, serum or plasm a chloride 86 [...] 3_M2 Creat inine based estim ated glome elilar filtr ation rate (eGFR ) is calcu [...] , AND PREVE NTION OF EMBOL ISM. JIM STED VALUE S OF 2.5-3 .5 FOR [...] The Location Of Their Choice, 10/20/2018 19:58:54 10/21/19 19 10/20/2018 ESR (eryt hrocy te sedim entat ion [...] Go To The Location Of Their Choice, [id number] 10/20/2018 20:12:23 10/21/19 19 10/20/2018 HbA1c (hemo [...] Go To The Location Of Their Choice, [id number] 10/20/2018 22:55:14 11/24/1911/23/2018 CBC w/ auto diff [...] Go To The Location Of Their Choice, [address] 01/03/2019 18:33:34 01/04/2001/03/2019 urina lysis , compl ete sp. gravity 1.018 (1.002 -1.030 ) Not Available [facility] (Centralized Electronic Ordering - All Locations) Patient Can Go To The Location Of Their Choice, 01/03/2019 18:33:34 01/04/2001/03/2019 urina lysis , compl ete urine pH 5.0 (5.0-8 .0) Not Available [facility] (Centralized Electronic Ordering - All Locations) Patient Can Go To The Location Of Their Choice, [id number] 01/03/2019 18:33:34 01/04/2001/03/2019 urina lysis , compl ete urine albumin 1+ (neg) abnormal Not Available [facility] (Centralized Electronic Ordering - All Locations) Patient Can Go To The Location Of Their Choice, [id number] 01/03/2019 18:33:34 01/04/2001/03/2019 urina lysis , compl ete urine glucose 2+ (neg) abnormal Not Available [facility] (Centralized Electronic Ordering - All Locations) Patient Can Go To The Location Of Their Choice, [address] 01/03/2019 18:33:34 01/04/2001/03/2019 urina lysis , compl ete urine ketones NEGATI VE (neg) Not Available [facility] (Centralized Electronic Ordering - All Locations) Patient Can Go To The Location Of Their Choice, 01/03/2019 18:33:34 01/04/2001/03/2019 urina lysis , compl ete urine bilirubin NEGATI VE (neg) Not Available [facility] (Centralized Electronic Ordering - All Locations) Patient Can Go To The Location Of Their Choice, [address] 01/03/2019 18:33:34 01/04/2001/03/2019 urina lysis , compl ete urine hemoglobin NEGATI VE (neg) Not Available [facility] (Centralized Electronic Ordering - All Locations) Patient Can Go To The Location Of Their Choice, [id number] 01/03/2019 18:33:34 01/04/2001/03/2019 urina lysis , compl ete urine nitrite NEGATI VE (neg) Not Available [facility] (Centralized Electronic Ordering - All Locations) Patient Can Go To The Location Of Their Choice, [address] 01/03/2019 18:33:34 01/04/2001/03/2019 urina lysis , compl ete urine leukocyte NEGATI VE (neg) Not Available [facility] (Centralized Electronic Ordering - All Locations) Patient Can Go To The Location Of Their Choice, [id number] 01/03/2019 18:33:34 01/04/2001/03/2019 urina lysis , compl ete urobilinogen NORMAL mg/dL (norm) Not Available [facility] (Centralized [facility] Ordering - All Locations) Patient Can Go To The Location Of Their Choice, [address] 01/03/2019 18:33:34 01/04/2001/03/2019 urina lysis , compl ete urine WBC's 1 /hpf (0-5) Not Available [facility] (Centralized Electronic Ordering - All Locations) Patient Can Go To The Location Of Their Choice, [address] 01/03/2019 18:33:34 01/04/2001/03/2019 urina lysis , compl ete urine RBC's 2 /hpf (<3) Not Available [facility] (Centralized Electronic Ordering - All Locations) Patient Can Go To The Location Of Their Choice, [address] 01/03/2019 18:33:34 01/04/2001/03/2019 urina lysis , compl ete mucus SLIGHT /lpf Not Available [facility] (Centralized Electronic Ordering - All Locations) Patient Can Go To The Location Of Their Choice, [id number] 01/03/2019 18:33:34 01/04/2001/03/2019 CMP, serum or plasm a glucose 134 mg/dL (70-99 ) high Not Available [facility] (Centralized Electronic Ordering - All Locations) Patient Can Go To The Location Of Their Choice, [address] 01/03/2019 18:48:40 01/04/2001/03/2019 CMP, serum or plasm [...] Go To The Location Of Their Choice, [address] 01/03/2019 18:49:41 01/04/2001/03/2019 CBC w/ auto diff abs. NRBC 0.0 K/mm3 Not Available [facility] (Centralized Electronic Ordering - All Locations) Patient Can Go To The Location Of Their Choice, [id number] 01/03/2019 18:49:41 01/04/2001/03/2019 HbA1c (hemo globi n [...] Go To The Location Of Their Choice, [id number] 01/03/2019 22:21:36 01/04/2001/03/2019 HbA1c (hemo globi n [...] Go To The Location Of Their Choice, [id number] 01/03/2019 22:21:53 01/04/2001/03/2019 hemog lobin A1C, finge rstic k HbA1c 6.7% Not Available In-Office Order Internal Use Only DO Not Attach Compendium DO Not Attach Compendium, Do Not Delete/merge, [id number] 01/03/2019 14:43:15 09/08/19 19 09/08/2018 XR, chest [...] I agree with this report . WSN: [id number] Dictat ed By: Sherwin Malcolm MD Dictat ed Date/T gerri: 11:08 a Review ed By: Henry Slater MD Signed By: Henry Slater MD Signed Date/T gerri: 11:13 am Transc ribed By: ANNY Transc ribed Date/T gerri: 10:39 am Patien t [facility] [address], [place], [address], 09/19/2018 10:45:52 09/14/19 19 09/14/2018 US, abdom [...] nal aorta measur ing 1.8 cm. WSN: [id number] Dictat ed By: Vy Duque MD Dictat ed Date/T gerri: 9:01 am Review ed By: Vy Duque MD Signed By: Vy Duque MD Signed Date/T gerri: 9:01 am Transc ribed By: ANNY Transc ribed Date/T gerri: 8:58 am Patien t Class: Outpat ient [facility] (Outpt Imaging) [address] [place], [address], 09/19/2018 10:45:52 09/30/19 19 09/27/2018 regad enoso n stres s test (PROC ) No observ ation record ed. [facility] Diagnostic Testing [address] [place], [address], 10/20/2018 14:22:03 11/09/19 19 11/08/2018 CT, chest [...] at the head of pancre as. WSN: [id number] Dictat ed By: Elise Srinivasan MD Dictat ed Date/T gerri: 3:47 pm Review ed By: Elise Srinivasan MD Signed By: Elise Srinivasan MD Signed Date/T gerri: 3:47 pm Transc ribed By: ANNY Transc ribed Date/T gerri: 3:29 pm Patien t Class: Outpat ient [facility] (Outpt Imaging) [address] [place], [address], 11/17/2018 16:12:28 12/14/19 20 12/11/2019 trans -thor acic echoc ardio gram (TTE) (PROC ) No observ ation record ed. [facility] [address] [place], [address], 12/17/2019 22:16:50 Result Notes Documentation Provider Name and Address Organization Details Recorded Time Ct, Chest, W/ Contrast : CT Chest W/ Contrast INDICATION: R63.4 UNINTENTIONAL WT LOSS RO OCCULT MALIGNANCY. COMPARISON: 08/30/2013 TECHNIQUE: Helical CT scan of the chest with IV contrast, formatted in 3 planes. Weight-based protocol was performed using automatic exposure control. CTDIvol Body: 3.71 mGy, DLP Body: 142 mGy*cm. FINDINGS: LINES AND TUBES: None. TRACHEA AND MAIN BRONCHI: Patent without evidence of tracheal or endobronchial lesion. LUNGS AND PLEURA: 7 mm and 4 mm nodules in the lingula abutting the oblique fissure have morphology of lymph nodes and are stable since 2013, benign. There is minor scarring at the left lung base which is likely related to pleural effusion from 1999. There is no bronchiectasis or bronchial wall thickening. However, there is diffusely decreased lung density, particularly at the bases, also appreciated on chest radiograph. Lungs appear hyperinflated, also best appreciated on radiograph. AORTA: No evidence of aortic aneurysm. MEDIASTINUM and FENG: No hematoma, mass or adenopathy. Prior CABG. No pericardial effusion. No esophageal abnormalities. CHEST WALL SOFT TISSUES: Normal. DIAPHRAGM AND UPPER ABDOMEN: Smooth thickening of the capsule of the spleen related to prior subcapsular collection in . Atrophic pancreas with dilated main pancreatic duct measuring 5 mm. Multiple calcifications in the pancreas in keeping with chronic pancreatitis. There is a stone in the pancreatic duct at the head of pancreas, the likely cause of ductal dilatation. Pancreatic ductal dilatation was also present in 2013. BONES: Normal. IMPRESSION: No malignancy is identified in the chest. Decreased lung density, particularly in the lower zones, with hyperinflated lungs. Appearance suggests diffuse obstructive small airways disease. Recommend correlation with pulmonary function tests. Chronic pancreatitis with dilated main pancreatic duct, which appears secondary to a stone in the duct at the head of pancreas. WSN: [id number] Dictated By: Elise Srinivasan MD Dictated Date/Time: 11/08/18 3:47 pm Reviewed By: Elise Srinivasan MD Signed By: Elise Srinivasan MD Signed Date/Time: 11/08/18 3:47 pm Transcribed By: ANNY Transcribed Date/Time: 11/08/18 3:29 pm Patient Class: Outpatient Glynn Hernández MD [address] 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 26497226 Completed 05/30/2017 Glynn Hernández MD [address], [address] , [place] [facility] 7 11:34:19 Coronary atherosc lerosis 169914597 Active Not Available [facility] 0 18:23:47 Uncontro lled type 2 diabetes mellitus 773196218 Completed 12/23/2016 STORY: DOMINGO BURROWS RN [phone] /ANA PAULA Hernández MD [address], [place], [address] , [facility] 7 12:06:51 Essentia l hyperten kali 64395021 Active Not Available [facility] 0 18:23:47 Gastroes ophageal reflux disease 071073945 Active Not Available [facility] 0 18:23:47 Pure hypercho lesterol emia 065921806 Active Not Available [facility] 0 18:23:47 Mononeur itis 94143851 Active Not Available [facility] 0 18:23:47 Chronic pancreat itis 297435483 Active Not Available [facility] 0 18:23:47 Neuropat hy due to diabetes mellitus 802545379 Active Not Available [facility] 0 18:23:47 Body mass index 25-29 - overweig ht 466992987 Completed 05/30/2017 Glynn Hernández MD [address], [place], [address] , [facility] 7 11:32:22 Type 2 diabetes mellitus 45704727 Completed 12/05/2018 Removal Reason: not [facility] 9 09:38:09 Mitral valve regurgit ation 70793725 Active Not Available [facility] 0 18:23:47 Pain of multiple joints 19640547 Active Not Available [facility] 0 18:23:48 Well controll ed type 2 diabetes mellitus 443188920 Completed 01/03/2019 Soledad Peck PA-C [address], [place], [address] , [facility] 9 14:34:20 Pain of shoulder region 77165640 Completed 10/20/2018 Glynn Hernández MD [address] [address], [place], [address] , [facility] 9 14:39:07 Christine talavera Completed 05/30/2017 Glynn Hernández MD [address] [address], [place], [address] , [facility] 7 11:32:31 Serum creatini ne above referenc e range 784120421 Active Not Available [facility] 0 18:23:47 Diabetic distal sensorim otor polyneur opathy Active Not Available [facility] 0 18:23:47 Knee pain Active Not Available [facility] 0 18:23:47 Hyperkal emia 46164722 Completed 11/19/2016 Glynn Hernández MD [address] [address], [place], [address] , [facility] 7 08:25:48 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 WILL TREAT SYMPTOMA TICALLY AND COVER FOR BACTERIA L SOURCE IF PERSISTA NT.; RECORDED 06/28/20 12 3:37PM BY SHERYL PAREDES MA, ANNOTATI ON/GUERLINEEN RENATO Hernández MD [address] [facility] [address], [place], [address] , [facility] 6 10:12:45 Shoulder joint pain 827749272 Completed 201103/04/2014 IMPRESSI ON: PERSISTA NT DESPITE CONSERVA TICVE THERAPY. WILL SEE WHAT ORTHO THINKS.; RECORDED 06/28/20 12 3:37PM BY SHERYL PAREDES MA, ANNOTATI ON/CORDELL Hernández MD [address] [address], [place], [address] , [facility] 6 10:12:45 Cough 27307813 Completed 201102/05/2014 IMPRESSI ON: SYMPTOMS PRESENT JUST UNDER 1 WEEK. WILL TREAT SYMPTOMA TICALLY AND COVER FOR BACTERIA L SOURCE IF PERSISTA NT.; RECORDED 06/28/20 12 3:37PM BY SHERYL PAREDES MA, ANNOTATI ON/CORDELL Hernández MD [address] [address], [place], [address] , [facility] 6 10:12:45 Shoulder joint pain 884216890 Completed 201102/05/2014 IMPRESSI ON: PERSISTA NT DESPITE CONSERVA TICVE THERAPY. WILL SEE WHAT ORTHO THINKS.; RECORDED 06/28/20 12 3:37PM BY SHERYL PAREDES MA, ANNOTATI ON/CORDELL Hernández MD [address] [address], [place], [address] , [facility] 6 10:12:45 Essentia l hyperten kali 06332481 Completed 201202/05/2014 RECORDED 08/07/19 13 2:35PM BY SHERYL PAREDES MA, CATRACHITOATI ON/CORDELL Hernández MD [address] [address], [place], [address] , [facility] 6 10:12:45 Tobacco user [id number] Completed 201203/04/2014 RECORDED 09/07/19 13 2:45PM BY SHERYL PAREDES MA, ANNOTATI ON/ADDEN DUM Glynn Hernández MD [address], [place], [address] , [facility] 6 10:12:45 Tobacco user [id number] Completed 201202/05/2014 RECORDED 09/07/19 13 2:45PM BY SHERYL PAREDES MA, ANNOTSARAN ON/CORDELL Hernández MD [address], [place], [address] , [facility] 6 10:12:45 History of clinical finding in subject 795844583 Completed 201203/08/2014 RECORDED 09/07/19 13 2:45PM BY SHERYL PAREDES MA, ANNOTATI ON/ADDAMBER Hernández MD [address] [facility] [address], [place], [address] , [facility] 6 10:12:45 Follow-u p encounte r Completed 201203/04/2014 RECORDED 03/16/20 13 11:54AM BY ELEAZAR OAKES MA, ANNOTSARAN ON/CORDELL Hernández MD [address] [facility] [address], [place], [address] , [facility] 6 10:12:45 Follow-u p encounte r Completed 201202/05/2014 RECORDED 03/16/20 13 11:54AM BY ELEAZAR OAKES MA, ANNOTATI ON/CORDELL Hernández MD [address] [facility] [address], [place], [address] , [facility] 6 10:12:45 Influenz a vaccine needed 57467380065 06 Completed 201203/04/2014 RECORDED 04/06/20 13 1:37PM BY LAKSHMI STEARNS MA, OFFICE VISIT Glynn Hernández MD [address] [facility] [address], [place], [address] , [facility] 6 10:12:45 Influenz a vaccine needed 16918525705 06 Completed 201202/05/2014 RECORDED 04/06/20 13 1:37PM BY LAKSHMI STEARNS MA, OFFICE VISIT Glynn Hernández MD [address] [facility] [address], [place], [address] , [facility] 6 10:12:45 Abdomina l pain 37204388 Completed 201203/04/2014 IMPRESSI ON: HAS RISK FACTORS FOR GASTRITI S. WILL START PPI EMPIRICA LLY WHILE WAITING FOR GI F/U.; RECORDED 04/10/20 13 3:36PM BY LAKSHMI STEARNS MA, ANNOTSARAN ON/ADDEN RENATO Hernández MD [address] [facility] [address], [place], [address] , [facility] 6 10:12:45 Adult health examinat ion Completed 201203/04/2014 IMPRESSI ON: WILL UPDATE IMMUNIZA TION STATUS AND SCREEN BASED ON RISK FACTORS. [facility] USE ADVISED. DISTRACT ED DRIVING DISCUSSE D. COLON CANCER SCREENIG N UTD. PROSTATE CANCER SCREENIN G TAILORED BASED ON RISK FACTORS. ; RECORDED 04/10/20 13 3:36PM BY LAKSHMI STERANS MA, SAMMY ON/CORDELL Hernández MD [address] [facility] [address], [place], [address] , [facility] 6 10:12:45 Abdomina l pain [id number] Completed 201202/05/2014 IMPRESSI ON: HAS RISK FACTORS FOR GASTRITI S. WILL START PPI EMPIRICA LLY WHILE WAITING FOR GI F/U.; RECORDED 04/10/20 13 3:36PM BY LAKSHMI STEARNS MA, SAMMY ON/CORDELL Hernández MD [address] [facility] [address], [place], [address] , [facility] 6 10:12:45 Adult health examinat ion Completed 201202/05/2014 IMPRESSI ON: WILL UPDATE IMMUNIZA TION STATUS AND SCREEN BASED ON RISK FACTORS. [facility] AND [facility] USE ADVISED. DISTRACT ED DRIVING DISCUSSE D. COLON CANCER SCREENIG N UTD. PROSTATE CANCER SCREENIN G TAILORED BASED ON RISK FACTORS. ; RECORDED 04/10/20 13 3:36PM BY LAKSHMI STEARNS MA, CATRACHITOATI ON/CORDELL Hernández MD [address] [facility] [address], [place], [address] , [facility] 6 10:12:45 Type 2 diabetes mellitus without complica tion 644229249 Completed 201303/04/2014 RECORDED 08/10/19 14 11:00AM BY ELEAZAR OAKES MA, SAMMY ON/CORDELL Hernández MD [address] [facility] [address], [place], [address] , [facility] 6 10:12:45 Laborato ry procedur e performe d 212069869 Completed 201303/04/2014 RECORDED 08/10/19 14 10:59AM BY ELEAZAR OAKES MA, SAMMY ON/CORDELL Hernández MD [address] [address], [place], [address] , [facility] 6 10:12:45 Mononeur itis of lower limb Completed 201303/04/2014 RECORDED 08/10/19 14 11:00AM BY ELEAZAR OAKES MA, SAMMY ON/CORDELL Hernández MD [address] [facility] [address], [place], [address] , [facility] 6 10:12:45 Type 2 diabetes mellitus without complica tion 677498119 Completed 201302/05/2014 RECORDED 08/10/19 14 11:00AM BY ELEAZAR OAKES MA, SAMMY ON/CORDELL Hernández MD [address], [place], [address] , [facility] 6 10:12:45 Laborato ry procedur e performe d 503595326 Completed 201302/05/2014 RECORDED 08/10/19 14 10:59AM BY ELEAZAR OAKES MA, SAMMY KELSEY/CORDELL Hernández MD [address], [place], [address] , [facility] 6 10:12:45 Mononeur itis of lower limb Completed 201302/05/2014 RECORDED 08/10/19 14 11:00AM BY ELEAZAR OAKES MA, SAMMY ON/CORDELL Hernández MD [address] [facility] [address], [place], [address] , [facility] 6 10:12:45 Lipoma 41605654 Completed 201303/04/2014 IMPRESSI ON: MOST LIKELY DIAGNOSI S. REASSURA NCE PROVIDED . IF CHANGES OR BECOMES UNCOMFOR TABLE WILL EVALUATE FURTHER. ; RECORDED 10/12/19 14 12:56PM BY LAKSHMI STEARNS MA, SAMMY ON/CORDELL Hernández MD [address] [facility] [address], [place], [address] , [facility] 6 10:12:45 Lipoma 80862308 Completed 201302/05/2014 IMPRESSI ON: MOST LIKELY DIAGNOSI S. REASSURA NCE PROVIDED . IF CHANGES OR BECOMES UNCOMFOR TABLE WILL EVALUATE FURTHER. ; RECORDED 10/12/19 14 12:56PM BY LAKSHMI STEARNS MA, SAMMY KELSEY/CORDELL Hernández MD [address], [place], [address] , [facility] 6 10:12:45 Renewal of prescrip tion Completed 201303/04/2014 RECORDED 11/16/19 14 1:29PM BY LAKSHMI STEARNS MA, SAMMY ON/CORDELL Hernández MD [address] [facility] [address], [place], [address] , [facility] 6 10:12:45 Pleural effusion 62372655 Completed 201303/04/2014 IMPRESSI ON: WORSE SINCE IN THE HOSPITAL 2 WEEKS AGO. GAVE HIM CHOICE OF ER OR SEEING PULMONAR Y NEXT WEEK. HE WOULD LIKE TO WAIT. HE WILL GO TO ER IF ANY FEVERS, ANY WORSENIN G PAIN.; RECORDED 11/16/19 14 2:08PM BY GLYNN Macias MD, SAMMY ON/CORDELL Hernández MD [address] [facility] [address], [place], [address] , [facility] 6 10:12:45 Uncontro lled type 2 diabetes mellitus 210722997 Completed 201302/05/2014 IMPRESSI ON: BASED ON HOME MEASUREM ENTS CONTROL IS INADEQUA TE. WILL MAXIMIZE METFORMI N DOSE AND RECHECK LABS.; RECORDED 11/16/19 14 1:29PM BY LAKSHMI STEARNS MA, SAMMY ON/CORDELL Hernández MD [address] [facility] [address], [place], [address] , [facility] 7 12:06:51 Renewal of prescrip tion Completed 201302/05/2014 RECORDED 11/16/19 14 1:29PM BY LAKSHMI STEARNS MA, SAMMY KELSEY/CORDELL Hernández MD [address] [facility] [address], [place], [address] , [facility] 6 10:12:45 Pleural effusion 53737097 Completed 201302/05/2014 IMPRESSI ON: WORSE SINCE IN THE HOSPITAL 2 WEEKS AGO. GAVE HIM CHOICE OF ER OR SEEING PULMONAR Y NEXT WEEK. HE WOULD LIKE TO WAIT. HE WILL GO TO ER IF ANY FEVERS, ANY WORSENIN G PAIN.; RECORDED 11/16/19 14 2:08PM BY GLYNN Macias MD, ANNOTATI ON/CORDELL Hernández MD [address] [facility] [address], [facility] [place], [address] , [facility] 6 10:12:45 Pneumoni a [id number] Completed 201303/08/2014 IMPRESSI ON: RADIOLOG IST READ STATES THERE MAY STILL BE CONSOLID ATION IN LUNG. PULMONAR Y TO REASSESS NEXT WEEK; RECORDED 11/16/19 14 1:34PM BY LAKSHMI STEARNS MA, OFFICE VISIT Glynn Hernández MD [address] [facility] [address], [facility] [place], [address] , [facility] 6 10:12:45 Pneumoni a [id number] Completed 201303/04/2014 IMPRESSI ON: RADIOLOG IST READ STATES THERE MAY STILL BE CONSOLID ATION IN LUNG. PULMONAR Y TO REASSESS NEXT WEEK; RECORDED 01/10/20 14 5:46PM BY GLYNN Macias MD, ANNOTATI ON/CORDELL Hernández MD [address] [facility] [address], [facility] [place], [address] , [facility] 6 10:12:45 Chronic kidney disease stage 3 115112821 Active 2016 Not Available [facility] 0 18:23:47 Bilatera l tinnitus 01104667427 02 Active 2017 Not Available [facility] 0 18:23:47 Sensorin eural hearing loss 00808417 Active 2017 Not Available [facility] 0 18:23:47 Albuminu charlie 271769719 Active 2018 Not Available [facility] 0 18:23:47 Dilatati on of aorta 28666512 Active 2018 1.8 cm abdomina l Not Available [facility] 0 18:23:47 Steatoti c liver disease 209911686 Active 2018 Not Available [facility] 0 18:23:47 Recurren t major depressi on 31908260 Active 2018 Not Available [facility] 0 18:23:47 Renal disorder due to type 2 diabetes mellitus 423936345 Active 2018 Not Available [facility] 0 18:23:48 Narrow angle of anterior chamber of left eye 98139201775 000780 Active 2018 Not Available [facility] 0 18:23:47 Nuclear cataract 54284309 Active 2018 Not Available [facility] 0 18:23:48 Aortic root dilatati on 021782270 Active 2019 Not Available [facility] 0 18:23:47 Noncompl iance with medicati on regimen 361641007 Active 2020 Glynn Hernández MD [address] [address], [place], [address] , [facility] 1 22:01:23 Notes:Some problems listed i n Documents: #[id number], #[id number], #[id number], #[id number], #[id number], #[id number], #[id number], #[id number] could not be added to this patient's chart. Please review these documents and add these problems to the patient's chart manually as needed. Problem Notes None recorded. Procedures Surgical History Date Name Laterality Status Provider Name and Address Organization Details Recorded Time 12/11/19 20 Echo transthoracic completed Glynn Hernández MD [address], [address], [facility] 12/17/2019 22:15:25 01/16/20 19 iridotomy completed Glynn Hernández MD [address], [address], [facility] 01/31/2019 10:16:14 01/04/20 19 Diabetic Foot Exam (Monofilament) completed [facility] 01/03/2019 14:22:39 10/31/19 19 angiography of coronary artery completed Glynn Hernández MD [address] [facility], [place], [address], [facility] 11/17/2018 16:23:33 09/28/19 19 radionuclide imaging of perfusion of myocardium under exercise stress completed Glynn Hernández MD [address] [facility], [place], [address], [facility] 10/02/2018 14:15:32 10/16/19 17 Colonoscopy completed Lakshmi Stearns MA [facility] 11/18/2016 11:20:22 03/11/20 16 Stress Test completed Glynn Hernández MD [address] [facility], [place], [address], [facility] 03/21/2016 10:16:26 11/05/19 15 Echo Transthoracic completed Glynn Hernández MD [address] [place] [address], [address], [facility] 11/07/2014 17:34:46 09/25/19 15 CABG completed Glynn Hernández MD [address] [facility] [address] [facility], [place], [address], [facility] 09/29/2014 12:48:27 01/23/20 12 Imaging, cardiac cath completed Glynn Hernández MD [address] [facility] [address] [place] [address], [address], [facility] 09/17/2014 09:24:50 01/23/20 12 Cardiac Surgery completed Glynn Hernández MD [address] [place] [address], [address], [facility] 10/20/2018 14:20:26 06/24/20 06 Colonoscopy completed Lakshmi Stearns MA [facility] 06/13/2014 11:12:06 01/23/20 01 Cardiac Surgery completed Lakshmi Stearns MA [facility] 02/24/2016 13:01:28 Tonsillectomy completed Lakshmi Stearns CHRISTINA [facility] 02/24/2016 13:01:28 Orthopedic Surgery completed Lakshmi Stearns MA [facility] 02/24/2016 13:01:28 Imaging Results None recorded. Procedure Notes None recorded. Medical Equipment None Reported. Allergies Allergen ID Allergen Name Allergen Category Reaction Reaction Severity Criticality Documentation Date Start Date Code Code System Note Provider Name and Address Organization Details Recorded Time 22901 codeine medicatio n other Not available Not available 05/18/20212013 2670 RxNorm Aimee Courtney rojas, [facility] 1 10:42:54 4674 codeine sulfate medicatio n tachycard ia Not available Not available 02/05/20142013 09411 RxNorm Glynn Hernández MD [address] [facility] [address], [place], [address], [facility] 7 11:31:43 Medications Name Sig Start Date [...] days due a financia l problem w/ catamara n mail order, pt needs this script sent to [facility] while waiting 2 weeks for mail [...] 13 2:18PM BY MICHAEL LUO MA, ANNOTATI ON/ DUM; Not Available Not Available [...] 07/27/19 14 11:30AM BY CAMMIE PARIKH RN, ANNOTATI ON/ DUM; Not Available Not Available [...] 04/06/20 13 1:52PM BY GLYNN Macias MD, ANNOTATI ON/ADD DUM; [...] 14 11:05AM BY ELEAZAR OAKES MA, OFFICE VISIT;[facility] 07/26/13 IN EVENING Not Available Not Available Not Available oxycodone 5 mg tablet Take 1 tablet every 4-6 hours by oral route as needed for 7 days. 05/06 completed Not Available Not Available Not Available Delsym 30 mg/5 mL oral liquid,ex tended release 08/07 completed RECORDED 08/07/19 13 3:39PM BY GLYNN aMcias MD, ANNOTATI ON/ADD DUM; Not Available Not [...] 12 1:59PM BY GLYNN Macias MD, ANNOTATI ON/CORDELL DUM; Not Available Not Available [...] Available Not Available Not Available Fluarix Quad 6298-8996 (PF) 60 mcg (15 mcg x 4)/0.5 [...] in Arterial blood by Pulse oximetry Systolic And Diastolic Provider Name and Address Organization Details Last Updated DateTime 9 175.9 cm 18.2 kg/m2 50341.4 5 g 65 /min 96.8 [degF] 98 % 98 % 101/69 mm[Hg] Lakshmi Stearns MA [facility] 9 10:24:44 Date Recorded Body height Body mass index (BMI) Body weight Heart rate Oxygen saturation Oxygen saturation in Arterial blood by Pulse oximetry Body temperature Systolic And Diastolic Provider Name and Address Organization Details Last Updated DateTime 9 175.9 cm 20.2 kg/m2 24926.7 5 g 79 /min 97 % 97 % 98.3 [degF] 108/69 mm[Hg] Lakshmi Stearns MA [facility] 9 14:10:15 Date Recorded Body height Body mass index (BMI) Body weight Heart rate Oxygen saturation Oxygen saturation in Arterial blood by Pulse oximetry Body temperature Systolic And Diastolic Provider Name and Address Organization Details Last Updated DateTime 9 175.9 cm 21.3 kg/m2 99779.8 9 g 60 /min 100 % 100 % 98.7 [degF] 112/74 mm[Hg] Lakshmi Stearns MA [facility] 9 15:41:31 Date Recorded Body height Body temperature Oxygen saturation Oxygen saturation in Arterial blood by Pulse oximetry Heart rate Body mass index (BMI) Body weight Systolic And Diastolic Provider Name and Address Organization Details Last Updated DateTime 9 175.9 cm 97.7 [degF] 98 % 98 % 60 /min 21.3 kg/m2 47120.8 9 g 103/67 mm[Hg] Lakshmi Stearns MA [facility] 9 11:13:44 Date Recorded Body height Body mass index (BMI) Body weight Heart rate Oxygen saturation Oxygen saturation in Arterial blood by Pulse oximetry Systolic And Diastolic Provider Name and Address Organization Details Last Updated DateTime 9 175.9 cm 22 kg/m2 61589.9 6 g 68 /min 96 % 96 % 126/80 mm[Hg] Margaret Martinezu [facility] 9 14:26:55 Social History Question Answer Notes LastModified by Organizat ion Details LastModified Time Tobacco Smoking Status Former Smoker quit 2008 Not Available [facility] 05/27/2020 03:36:41 Do You Have An Advance Directive? Yes HCP/ Girlfriend-Sh justine [id number] Information not available 05/27/2020 Is Blood Transfusion Acceptable In An Emergency? Yes [id number] Information not available 05/27/2020 What Is Your Level Of Caffeine Consumption? None [id number] Information not available 05/27/2020 How Much Tobacco Do You Chew? None [id number] Information not available 05/27/2020 What Type Of Diet Are You Following? CARDIAC [id number] Information not available 05/27/2020 Which Illicit Or Recreational Drugs Have You Used? None [id number] Information not available 05/27/2020 Live Alone Or [...] Of Your Most Recent Tobacco Screening? 01/03/2019 [id number] Information not available 05/27/2020 How Many Children Do You Have? 2 Sons [id number] Information not available 05/27/2020 Seat Belts Used Routinely Yes Information not available 06/13/2014 Are You Sexually Active? Yes [id number] Information not available 05/27/2020 Smoke Alarm In Home Yes Information not available 02/24/2016 At What Age Did You Start Smoking Tobacco? 20 [id number] Information not available 05/27/2020 Are You Passively Exposed To Smoke? Yes Information not available 02/24/2016 How Much Tobacco Do You Smoke? 0.5 PPD [id number] Information not available 05/27/2020 Do You Use Sunscreen Routinely? Yes [id number] Information not available 05/27/2020 How Many Years Have You Smoked Tobacco? 33 [id number] Information not available 05/27/2020 Sex: Unknown Functional Status Question Answer Note LastModified by Organizat ion Details LastModified Time What is your level of alcohol consumption? Occasional wine [id number] Information not available 05/27/2020 Are you currently employed? No [id number] Information not available 05/27/2020 Are you able to care for yourself independently? Yes [id number] Information not available 05/27/2020 What is your occupation? retired [employer] [facility] Information not available 06/13/2014 What is your exercise level? None [id number] Information not available 05/27/2020 Mental Status None [...] N mrsa exposure N Lung Disease N COPD N Depression N Hypothyroidism N Defects or Inherited Disease N Developmental or Behavioral Disorders N Breast Problem N Anesthesia Complications N Headaches/Migraines N Anxiety Disorder N Varicose Veins Y Muscle, Joint, or Bone Problems N Obesity [...] high-dose, trivalent, PF 4 completed Not Available [facility] 04/18/2020 18:23:48 Influenza, high-dose, trivalent, PF 5 completed Not Available [facility] 04/18/2020 18:23:48 Influenza, split virus, quadrivalent, preservative 6 completed Not Available [facility] 04/18/2020 18:23:48 Influenza, MDCK, quadrivalent, PF 8 completed Aimee xie [facility] 05/18/2021 10:43:09 Influenza, MDCK, quadrivalent, PF 9 completed Aimee xie [facility] 05/18/2021 10:43:09 Influenza, split virus, quadrivalent, PF 7 completed Not Available [facility] 08/11/2019 02:22:11 Tdap 9 completed Not Available [facility] 08/11/2019 02:21:49 influenza, seasonal, intradermal, preservative free 2 completed Not Available [facility] 04/18/2020 18:23:48 influenza, seasonal, intradermal, preservative free 3 completed Not Available [facility] 04/18/2020 18:23:48 Tdap 8 completed Not Available [facility] 04/18/2020 18:23:48 pneumococcal conjugate PCV 7 8 completed Not Available [facility] 04/18/2020 18:23:48 pneumococcal polysaccharide PPV23 4 completed Not Available [facility] 04/18/2020 18:23:48 Past Encounters Encounter ID Performer Location Encounter Start Date Encounter Closed Date Diagnosis/Indication Diagnosis SNOMED-CT Code Diagnosis ICD10 Code Diagnosis Note [id number] autoEComm erce [address] [facility] [place] [id number] 06/05/2012 00:00:00 [id number] autoEComm erce [address] [facility] [place] [id number] 08/07/2012 00:00:00 [id number] autoEComm erce [address] [facility] [place] [id number] 11/15/2012 00:00:00 [id number] autoEComm erce [address] [facility] [place] [id number] 04/06/2013 00:00:00 [id number] autoEComm erce [address] [facility] [place] [id number] 07/04/2013 00:00:00 [id number] autoEComm erce [address] [facility] [place] [id number] 08/10/2013 00:00:00 [id number] autoEComm erce [address] [facility] [place] [id number] 10/03/2013 00:00:00 [id number] autoEComm erce [address] [facility] [place], [place] [id number] 11/15/2013 00:00:00 [id number] autoEComm erce [address] [facility] [place], [place] [id number] 12/14/2013 00:00:00 [id number] Glynn Hernández MD Main Office [address] [facility] [address] [place] [address] 03/08/2014 15:04:54 03/08/2014 15:59:04 Uncontrolled type 2 diabetes mellitus 942283645 Pt has lab orders from November and will have them done myah. Ophtho exam utd. Neuropathy due to diabetes mellitus 070369565 Not responding to gabapentin . Will try Lyrica and titrate as tolerated to goal pain control. Essential hypertension 08480423 Well controlled . Continue current regimen. [id number] Glynn Hernández MD Main Office [address] [facility] [address] [place] [address] 06/13/2014 10:49:55 06/13/2014 12:08:08 Adult health examination 208571629 Immunizati on status utd, will screen based on risk factors. Colon cancer screening utd, prosate cancer screening deffered secondary to low risk. Regular dental and ophtho care advised as well as seatbelt and sunscreen use. Distracted driving discussed. Advance directives in place. Body mass index 25-29 - overweight 555054901 Neuropathy due to diabetes mellitus 561470997 Not responding to gabapentin or lyrica. Will consult neuro for further evalution and treatment recommenda tions. Coronary atherosclerosis 752017523 Asymptomat ic with goal risk factor control. Cntinue current regimen. Uncontroll ed type 2 diabetes mellitus 068910217 Pt has lab orders from November and will have them done myah. Ophtho exam utd. Anemia 040893248 Has bee n stable. Will follow. [id number] Glynn Hernández MD Main Office [address] [facility] [address] [place] [address] 10/21/2014 14:44:22 10/21/2014 15:41:20 Coronary atherosclerosis 795076492 Asymptomat ic post CABG. Will reassess risk factor control. Cntinue current regimen for now. Essential hypertension 96006465 Well controlled . Continue current regimen. Anemia 439885982 Has bee n stable. Will follow. Uncontroll ed type 2 diabetes mellitus 858938693 [id number] Glynn Hernández MD Main Office [address] [facility] [address] [place] [address] 01/29/2015 11:15:31 01/29/2015 12:14:47 Essential hypertension 27227575 Well controlled . Continue current regimen. Pain of mu ltiple joints 66365594 Has risk for vitamin D deficiency which may be contributi ng to some of his pain along with neuropathy . Neuropathy due to diabetes mellitus 849585170 Not responding to gabapentin or Lyrica. Had EMG pending with neuro. Will see if Cymbalta helps with his discomfort . Well contr olled type 2 diabetes mellitus 036231307 [id number] Glynn Hernández MD Main Office [address] [facility] [address] [facility] [place] [address] 06/16/2015 10:57:24 06/16/2015 11:56:38 Adult health examination 787035459 Z00.00 Immunizati on status utd, will screen based on risk factors. Colon cancer screening utd, prosate cancer screening deferred secondary to low risk. Regular dental and ophtho care advised as well as seatbelt and sunscreen use. Distracted driving discussed. Advance directives in place. Neuropathy due to diabetes mellitus 184853009 E11.40 Working with neuro to gain better control. Current regimen is affording some relief. Coronary atherosclerosis 044721416 I25.10 Asymptomat ic with goal risk factor control. Continue current regimen. Uncontroll ed type 2 diabetes mellitus 449365137 E11.65 Will reassess control. Ophtho exam utd. Anemia 063645887 D64.9 Has been stable. Will follow. Chronic pancreatitis 235 846877 K86.1 Pain of oulder region 96541989 M25.511 Will call if persistent /worse to try PT and consider PMR/ortho eval. [id number] Glynn Hernández MD Main Office [address] [facility] [address] [place] [address] 10/16/2015 11:29:30 10/16/2015 12:21:59 Type 2 diabetes mellitus 27721170 E11.9 Very well controlled . Will decrease sulfonylur ea dose and see if still needed. Essential hypertension 15054970 I10 Well controlled . Continue current regimen. 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 Will be following up with cards in next few months. Claudication 280910440 I 73.9 Start with PVR and if abnormal try pletal and consult vascular. Neuropathy due to diabetes mellitus 664093272 E11.40 Working with neuro to gain better control. Current regimen is affording some relief. [id number] Richy Peck PA-C Main Office [address] [place] [address] 01/27/2016 12:58:25 01/27/2016 14:09:31 Knee pain 54796083 M25.561 pt states has tolerated oxycodone [place] [id number] Richy Peck PA-C Main Office [address] [facility] [address] [place] [address] 02/24/2016 12:49:07 02/24/2016 14:41:36 Knee pain 56941003 M25.561 no sig. help c PT -- will refer to [facility] - ? needs synvisc vs. check CT/MRI - needs arthroscop y? Hyperkalemia 08411418 E8 7.5 Serum crea tinine above reference range 244776754 R79.89 Coronary atherosclerosis 533206502 I25.812 seen by carmen. 8.1 - checked lipids, resumed statin recently - pending stress test in 2 weeks -- d/t above knee pain, ? exchange administrator to pharmacolo gic stress test [id number] Richy Peck PA-C Main Office [address] [facility] [address] [place] [address] 03/10/2016 10:30:28 03/10/2016 11:26:16 Pure hypercholesterolemia 162311430 E78.0 Essential hypertension 50571554 I10 bp stable on BB and off acei x 2 wks Neuropathy due to diabetes mellitus 424573562 E11.40 f/u c neurologis t Type 2 bertram betes mellitus 94131371 E11.22 25 minute office visit with greater than 50% of the visit face-to-fa ce with the patient and/or family providing counseling and/or coordinati on of care. Arterioscl erosis of coronary artery bypass graft 797004659 I25.810 [id number] Glynn Hernández MD Main Office [address] [facility] 207 [facility] [place] [address] 05/06/2016 10:51:00 05/06/2016 12:03:15 Neuropathy due to diabetes mellitus 960623045 E11.40 Recalcitra nt to neuropathi c pain meds. Will ask PMR for further management recommenda tions. Essential hypertension 57322922 I10 Better on recheck but not at goal. If Cr stable and K level normal will resume 10mg QD. Pt has appt with Dr. Briseno in 2 weeks. Osteoarthr itis of knee 224902608 M17.11 Ask PMR for considerat ion of injection trial or other treatment options. Hypercholesterolemia 136 29827 E78.2 Reassess since resumtion of statin therapy. [id number] Glynn Hernández MD Main Office [address] [facility] 207 [place] [address] 11/18/2016 10:58:00 11/18/2016 12:13:19 Pain of multiple joints 06122558 M25.50 ? if related to establishe d OA diagnosis vs neuropathy vs fibromyosi tis vs reactive arthropath y vs autoimmune phenomenon . Will try another pain managament referral. Diabetic d istal sensorimotor polyneuropathy 897692610 E11.42 Diabetes has been well controlled . Continue current regimen. 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 Continue current regimen. Major depr essive disorder 416740120 F32.9 ? if this is the cause or response to his chronic pain issues. Essential hypertension 49939887 I10 Will follow for now and depending on lab results resume low dose ACEI. [id number] Glynn Hernández MD Main Office [address] [facility] 207 [facility] [place] [address] 12/23/2016 11:27:59 12/23/2016 12:26:20 Essential hypertension 48908563 I10 Will titrate BB and follow. Reluctant to resume ACEI given bump in creatinine that occurred last fall when he was on it. Knee pain 36573561 M25.5 61 M25.562 c/w his neuropathy which seems to be improving with venlafaxin e. Will follow. Unexplaine d weight loss 688074443 R63.4 Screen for thyroid disease and significan t pulmonary pathology. Anemia 597838706 D64.9 Had been stable. Will follow. Major depr essive disorder 769225414 F32.9 Will titrate SNRI dose. Bilateral hearing loss 82372760 H91.93 Becoming problemati c. Pt is vaughn sutton further evaluation and treatment. [id number] Glynn Hernández MD Main Office [address] [facility] [address] [place] [address] 01/20/2017 13:31:07 01/20/2017 14:20:51 Essential hypertension 62695821 I10 Fair control. Continue current dose for now, Reluctant to resume ACEI given bump in creatinine that occurred last fall when he was on it. Knee pain 73368669 M25.5 61 M25.562 c/w his neuropathy which seems to be improving with venlafaxin e. Will follow. Diabetic d istal sensorimotor polyneuropathy 437080248 E11.42 Diabetes has been well controlled . Will decrease metformin dose. Anemia 141107848 D64.9 Had been stable. Will follow. Primary er ectile dysfunction 519350784 N52.9 Pt requesting rx. Has tolerated well in the past and has no contraindi cations. [id number] Glynn Hernández MD Main Office [address] [address] [place] [address] 04/22/2017 10:31:20 04/22/2017 12:23:20 Needs influenza immunization 235138325 Z23 Diabetic d istal sensorimotor polyneuropathy 466318656 E11.42 Will reduce metformin dose and reassess a1c in 3 months.Wor perla with pain mgmt. Ging to start lamictal and considerin [facility] . Essential hypertension 74411074 I10 Will add low dose diuretic for added control and monitor potassium. Screening for malignant neoplasm of prostate 176514972 Z12.5 Check PSA prior to upcoming CAX. [id number] Glynn Hernández MD Main Office [address] [facility] 207 [facility] [place] [address] 05/30/2017 10:57:48 05/30/2017 12:01:29 Adult health examination 568171412 Z00.00 Immunizati on status UTD, shingles advised via local pharmacy. Will screen based on risk factors. Colon cancer screening utd, will check 1 more PSA. Regular dental and ophtho care advised as well as seat belt and sunscreen use. Distracted driving discussed. Advance directives in place. Anemia 269033061 D64.9 Pt will d/c iron and folic acid. Will follow counts with these changes. Pure hypercholesterolemia 698595378 E78.00 LDL at goal. Continue current regimen. Well contr olled type 2 diabetes mellitus 213562292 E11.9 Improved control with weight loss. Will wean metformin dosing as long as A1C stays <6. Diabetic d istal sensorimotor polyneuropathy 262718181 E11.42 Essential hypertension 53175747 I10 Well controlled with addition of diuretic. Will continue current regimen. [id number] Glynn Hernández MD Main Office [address] [facility] [address] [facility] [place] [address] 08/22/2018 09:57:31 08/22/2018 11:18:46 Essential hypertension 00102591 I10 Having orthostati c symptoms, so we'll d/c the diuretic and possibly BB if persistent . Type 2 bertram betes mellitus 41769800 E11.9 Fair control. Off of meds. Will defer resuming meds until lab work is done. Unintentio nal weight loss 470109264 R63.4 Based on comorbidit ies needs eval for possible occult malignancy wilian pancreatic /lung. Paresthesia 23020263 R20 .2 Chronic pancreatitis 235 947468 K86.1 Chronic ki dney disease stage 3 615766789 N18[address] Briseno next week. Requires a tetanus booster 888227688 Z23 Administra tion of viral vaccine 92883007 Z23 [id number] Glynn Hernández MD Main Office [address] [facility] 207 [facility] [place] [address] 09/19/2018 10:00:58 09/19/2018 11:03:19 Early satiety 146098719 R68.81 With continued weight loss. Will see if insurance will cover high end imaging now for him. Unintentio nal weight loss 888924589 R63.4 Based on comorbidit ies needs eval for possible occult malignancy wilian pancreatic /lung. Anemia 172227903 D64.9 Refer to heme for further eval if stool is negative for occult blood, to GI if positive. Arterioscl erosis of coronary artery bypass graft 701436541 I25.810 Refill requested. Await results of stress testing. Underweight 842926258 R6 3.6 Z68.1 Patients body weight is below the normal range for age (<18.5). Discussed implicatio ns of low weight such as general health, bone health, immune function, iron absorption . [id number] Glynn Hernández MD Main Office [address] [place] [address] 10/20/2018 13:46:55 10/20/2018 14:53:24 Adult health examination 956108465 Z00.00 Immunizati on status UTD, Shingrix advised via local pharmacy. Will screen based on risk factors. Routine colon and prostate cancer screenign are utd. Regular dental and ophtho care advised as well as seat belt and sunscreen use. Distracted driving discussed. Advance directives in place. Varicella vaccination 68 130611 Z23 Diabetic d istal sensorimotor polyneuropathy 905030954 E11.42 Pt will f/u with ophtho myah. Recurrent major depression 01452422 F33.1 Venlafaxin e not working for mood or pain, so will try mirtazepin e to help with sleep and appetite. Anemia 434700076 D64.9 Insurance wont' cover abdominal imaging for evaluation of this issue and weight loss so will ask GI to consider endoscopie s even though stool cards were negative. Purpura an d/or petechiae 180845731 R23.3 Screen for vasculitis /coagulopa thy Coronary atherosclerosis 391159944 I25.10 Having cardiac cath done next week for abnormal stress test. [id number] Glynn Hernández MD Main Office [address] [place] [address] 11/17/2018 15:20:46 11/17/2018 16:39:55 Essential hypertension 62888548 I10 Well controlled on BB. Will monitor with weight. Recurrent major depression 18482209 F33.1 Mood, appetite and sleep seem to be improving with mirtazapin e. Will titrate and d/c venlafaxin e. Continue slow venlafaxin e wean. Diabetic d istal sensorimotor polyneuropathy 988602669 E11.42 Complicate d, and refractory to numerous nerve modulating medication s. Will re establish care with pain mgmt. Will continue current metformin dosing while monitoring corie function. Will ask Soledad to help with management . Anemia 764563739 D64.9 On procrit via renal. Will follow counts. [id number] Glynn Hernández MD Main Office [address] [facility] [address] [place] [address] 12/19/2018 10:36:36 12/19/2018 11:38:37 Essential hypertension 21940643 I10 Well controlled on BB. Will monitor with weight. Recurrent major depression 80070150 F33.1 Mood, appetite and sleep seem to be improving with mirtazapin e. Will titrate and d/c venlafaxin e. Continue slow venlafaxin e wean. Anemia 263604789 D64.9 On procrit via renal. Will follow counts. Bilateral glaucoma [id number] [id number] 3052155 H40.9 per pt report will need repair for closed angle disease. Will request records. Uncontroll ed type 2 diabetes mellitus 713810784 E11.65 Metformin dosing recently titrated. Has appt with VM upcoming. [id number] Henry Romero MD Main Office [address] [facility] [address] [place] [address] 01/03/2019 14:16:54 01/03/2019 15:36:52 Uncontrolled type 2 diabetes mellitus 825202894 E11.65 HGA1c today again is down to [...] CGM log. Diabetic d istal sensorimotor polyneuropathy 570124373 E11.42 Pt. has jason with pain management . Chronic ki dney disease stage 3 195435338 N18.3 F/u with nephrologi st as scheduled. 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 729160456 E11.22 Health Concerns Section Related Observation LastModified by Organization Detai ls LastModified Time None Recorded Concern Status LastModified by Organization Details LastModified Time None Recorded Advance Directives Directive Y: HCP/ Girlfriend-Santa Payers Insurance Date Sequence Insurance Name Policy Number Policy Adorno Covered Member ID Adorno Member ID Guarantor Name 12/14/2018 2 [place] [facility] Quentin Lara [id number] Quentin Lara 03/28/2020 1 [facility] [place] [id number] Quentin Lara [id number] Quentin Lara 12/14/2018 2 [place] [facility] Quentin Lara [id number] Quentin Lara Notes Date Note Type Note Provider Name and Address Organization Details Recorded Time 9 text/html Hypertension F/UReported by PatientHPIFor associated symptoms, patient reportsno dizziness,no lightheadedness,no chest pain,no shortness of breath,no palpitations, andno edema. For lifestyle, patient reportslimiting/avoiding salt. For medications, patient reportstaking medications as directedandno side effects from medication.stopped lisinopril. Diabetes F/UReported by PatientHPIFor associated symptoms, patient reportsweight loss (5 lbs). For context, patient reportstaking aspirin daily.Seen by nephrology since last visit, restarted metformin. Off of ACEI. Anxiety/DepressionReport ed by PatientHPIFor context, patient reportsmajor life stressors (chronic pain)andfamily problems. For associated symptoms, patient reportsweight loss (26 lbs),anxiety,depression, insomnia, andsleep disturbancesbut reportsdenies homicidal ideations. For quality, patient reportssymptoms improved. For severity, patient reportsdenies suicidal ideations,able to maintain relationships, anddoes not interfere with activities of daily living. For duration, patient reportssymptoms lasting over 2 weeks.Tolerating venlafaxine Was seen by both cardiology and nephrology since last visit. Has stress test booked. Insurance would not authorize CT scan of chest/abdomen to screen for occult malignancy. Had US of abdomen and CXR that were only significant for fatty liver, pancreas was not visualized. Pt continues to complain of early satiety. Glynn Hernández MD [address], [place], [address], [facility] 09/19/2018 13:08:48 9 text/html Generic HPI TemplateReported by PatientHere for a physical. Seeing ophtho regularly, no dentist. Glynn Hernández MD [address], [place], [address], [facility] 10/20/2018 14:55:32 9 text/html Hypertension F/UReported by PatientHPIFor associated symptoms, patient reportsno dizziness,no lightheadedness,no chest pain,no shortness of breath,no palpitations, andno edema. For lifestyle, patient reportslimiting/avoiding salt. For medications, patient reportstaking medications as directedandno side effects from medication.s/p CABG 2014. Recent stress testing abnl prompted angiogram which was unremarkable per patient. Diabetes F/UReported by PatientHPIFor associated symptoms, patient reportsweight gain (7 lbs). For context, patient reportstaking aspirin daily.Back on metformin. Most recent A1C 9.8. Pt has history of chronic pancreatitis. Insurance would not approve abd CT. Anxiety/DepressionReport ed by PatientHPIFor context, patient reportsmajor life stressors (chronic pain)andfamily problems. For associated symptoms, patient reportsweight gain (7 lbs),anxiety,depression, insomnia, andsleep disturbancesbut reportsdenies homicidal ideations. For quality, patient reportssymptoms improved. For severity, patient reportsdenies suicidal ideations,able to maintain relationships, anddoes not interfere with activities of daily living. For duration, patient reportssymptoms lasting over 2 weeks.Tolerating venlafaxine wean with start of mirtazapine. No change in his chronic neuropathic pain. Mely xie, [facility] 12/05/2018 09:38:48 9 text/html Hypertension F/UReported by PatientHPIFor associated symptoms, patient reportsdizzinessbut reportsno lightheadedness,no chest pain,no shortness of breath,no palpitations, andno edema. For lifestyle, patient reportslimiting/avoiding salt. For medications, patient reportstaking medications as directedandno side effects from medication. Diabetes F/UReported by PatientHPIFor context, patient reportstaking aspirin daily. For associated symptoms, patient reportsno weight gainandno weight loss.Has not been on meds for DM. Recent A1C 9.8. Pt has history of chronic pancreatitis but has not followed up with GI, but now has appt in next week. Anxiety/DepressionReport ed by PatientHPIFor context, patient reportsmajor life stressors (chronic pain)andfamily problems. For associated symptoms, patient reportsanxiety,depressio n,insomnia, andsleep disturbancesbut reportsdenies homicidal ideations,no significant weight gain, andno significant weight loss. For quality, patient reportssymptoms improved. For severity, patient reportsdenies suicidal ideations,able to maintain relationships, anddoes not interfere with activities of daily living. For duration, patient reportssymptoms lasting over 2 weeks.Tolerating mirtazepine well. Weaned off of venlafaxine. No change in chronic pain, and overall sleeping and eating better. Glynn Hernández MD [address], [address], [facility] 12/19/2018 11:43:59 9 text/html ROS as noted in the HPI 63 year old diabetic male for f/u. [...] lbs since 2011. Soledad Peck PA-C [address] [address], [place], [address], [facility] 01/03/2019 16:08:47
--- OUTSIDE RECORDS SUMMARY | 2025-02-15 10:23 | XMS_ITS | Clinical Summary ---
Author Organization [facility] Address [address] [place] [address] Phone Care Team Providers Care Jigsawyer Name Role Phone Rufino Rajput MD Primary Care Provider [phone] Allergies Active Allergy Reactions Criticality Noted Date Comments Codeine 07/21/2020 Medications calcitrioL (ROCALTROL) 0.25 mcg capsule Take 1 Capsule by mouth every other day. Active insulin aspart (NovoLOG) 100 unit/mL injection Inject as directed. Sliding scale Active insulin detemir (LEVEMIR) 100 unit/mL injection Inject 17 Units into the skin at bedtime. Active pancrelipase, Rtv-Wiuk-Jqwr, (CREON) 24,000-76,000 -120,000 unit capsule Take 2 capsules (48,000 Units total) by mouth 3 (three) times [...] (100 mg total) by mouth daily. Active atorvastatin (LIPITOR) 20 mg tablet Take 1 tablet by mouth once daily 90 tablet 3 01/16/20 25 Active nitroglycerin (NITROSTAT) 0.4 mg SL tablet DISSOLVE ONE TABLET UNDER THE TONGUE EVERY 5 MINUTES NEEDED FOR CHEST PAIN. DO NOT EXCEED A TOTAL OF 3 DOSES IN 15 MINUTES 25 tablet 02/12/20 25 Active nitroglycerin (NITROSTAT) 0.[address] 1 tablet (0.4 mg total) under the tongue every 5 (five) minutes if needed. 01/24/20 24 025 Discontinued Active Problems Problem Noted Date Diagnosed Date [...] abnormal renal function. Aneurysm of ascending aorta ([facility] V24) 2019 Overview (04/24/2024): 11/2019 [...] medical treatment. Will repeat lipid profile. Diabetes (CMS/HCC V24, CMS/HCC V28) 07/21/2020 Overview (04/24/2024): Last Assessment & Plan: Suggest him to call [place] office to get a new primary care [...] Encounters Date Type Department Care Team Description 02/05/2025 8:44 AM EDT - 02/05/2025 11:59 PM EDT Hospital Encounter [facility] Interventional Radiology [address] [place] [address] Thrombocytopenia (CMS/HCC V24); Anemia due to stage 3b chronic kidney disease ([facility]/HCC V24, CMS/HCC V28) Discharge Disposition: Home or Self Care 01/18/2025 Telephone [facility] Hematology Oncology [address] [place] [address] Darleen Stevens MA Bone Marrow Biopsy appt 01/15/2025 9:30 AM EDT Office Visit [facility] Hematology Oncology [address] [place] [address] Radha Lambert PA Thrombocytopenia (CMS/HCC V24) (Primary Dx); Anemia due to stage 3b chronic kidney disease (CMS/HCC V24, CMS/HCC V28) from Last 3 Months Immunizations Name Administration [...] Cigarettes Q uit: 07/25/2005 Smokeless Tobacco: Never Tobacco Cessation:Counseling Given: Not Answered Alcohol Use Standard Drinks/Week Comments No 0 (1 standard drink = 0.6 oz pur e alcohol) Sex and Gender Information Value Date Recorded Sex Assigned at Male 01/15/2025 2:58 PM EDT Legal Sex Male 9:23 AM EST Gender Identity Male 01/15/2025 2:58 PM EDT Sexual Orientation Straight 01/15/2025 2: 58 PM EDT Obstetrics History Last Filed Vital Signs Vital Sign Reading Time Taken Comments Blood Pressure 156/62 02/05/2025 12:00 PM EDT Pulse 50 02/05/2025 12:00 PM EDT Temperature 36.2 C (97.2 F) 02/05/2025 9:13 AM EDT Respiratory Rate 14 02/05/2025 11:14 AM EDT Oxygen Saturation 99% 02/05/2025 12:00 PM EDT Inhaled Oxygen Concentration - - Weight 72.6 kg (160 lb) 02/05/2025 9:13 AM EDT Height 181 cm (5' 11.26 ) 02/05/2025 9:13 AM EDT Body Mass Index 22.15 02/05/2025 9:13 AM EDT Plan of Treatment Upcoming Encounters Date Type Department Care Team (Late st Contact Info) Description 03/01/2025 8:40 AM EDT Office Visit [facility] [address] [facility] [address] [place] [address] Emelina Haines NP [address] [place] [id number] 07/19/2025 9:30 AM EST Office Visit [facility] Hematology Oncology [address] [place] [phone] Radha Lambert PA [address] [place] [address] Health Maintenance Due Date Last Done Comments Diabetes: Annual Foot Exam 12/28/1965 Diabetes: Annual Retina Eye Exam 12/28/1965 Hepatitis A Vaccines (2 of 2 - Risk 2-dose series) 11/30/2021 06/02/2021 Abdominal Aortic Aneurysm (AAA) Screen 06/27/2022 Colorectal Cancer Screening: Colonoscopy 06/27/2022 Falls Risk Assessment 06/27/2022 Hepatitis C Screening 06/27/2022 Social Influencers of Health Screening 06/27/2022 Medicare Annual Wellness Visit 03/30/2024 03/30/2023 Diabetes: Blood Sugar Control Test (HGBA1C) 07/12/2024 01/11/2024, 01/11/2024 Depression Screening 07/25/2024 COVID-19 Vaccine (7 - Pfizer risk season) 2024 04/23/2024, 11/12/2022, 04/28/2022, Additional history exists Hepatitis B Vaccines (3 of 3 - Risk 3-dose series) 03/06/2025 01/09/2025, 06/01/2021 Influenza Vaccine (#1) 2025 , 04/14/2023, 04/28/2022, Additional history exists Diabetes: Annual GFR (Glomerular Filtration Rate) 01/21/2026 01/21/2025, 07/30/2024, 07/16/2024, Additional history exists Hypertension/CHF/CAD Annual BMP Blood Test 01/21/2026 01/21/2025, 07/30/2024, 07/16/2024, Additional history exists Diabetes: Annual Urine Albumin-Creatinine Ratio (uACR) 01/24/2026 01/24/2025, 01/14/2025, 04/20/2024, Additional history exists DTaP,Tdap,and Td Vaccines (3 - Td or Tdap) 08/22/2028 08/22/2018, 04/26/2008 Cholesterol Screening (Lipid Panel) 07/30/2029 07/30/2024, 01/13/2023 Zoster Vaccines Completed 06/30/2022, 04/28/2022 RSV Immunization Adult Patients Completed 04/18/2023 Pneumococcal Vaccine: 50+ Years Completed 12/18/2023, 04/28/2022, 07/24/2013, Additional history exists HIB Vaccines Aged Out [...] Procedure Name Priority Date/Time Associated Diagnosis Comments IR BX AND ASP BONE MARROW Routine 02/05/2025 11:06 AM EDT Thrombocytopenia (CMS/HCC V24) Anemia due to stage 3b chronic kidney disease (CMS/HCC V24, CMS/HCC V28) BONE MARROW EXAM Routine 02/05/2025 10:4 7 AM EDT Thrombocytopenia (CMS/HCC V24) Anemia due to stage 3b chronic kidney disease (CMS/HCC V24, CMS/HCC V28) FLOW CYTOMETRY Routine 02/05/2025 10:47 AM EDT Thrombocytopenia (CMS/HCC V24) Anemia due to stage 3b chronic kidney disease (CMS/HCC V24, CMS/HCC V28) CYTOGENETICS MISCELLANEOUS Routine 02/05/2025 10:47 AM EDT Thrombocytopenia (CMS/HCC V24) Anemia due to stage 3b chronic kidney disease (CMS/HCC V24, CMS/HCC V28) POCT GLUCOSE BLOOD Routine 02/05/2025 10 :28 AM EDT POCT GLUCOSE BLOOD Routine 02/05/2025 9: 02 AM EDT HEPATIC FUNCTION PANEL Routine 10:34 AM EDT Thrombocytopenia (CMS/HCC V24) Anemia due to stage 3b chronic kidney disease (CMS/HCC V24, CMS/HCC V28) IRON AND TIBC Routine 01/15/2025 10:34 AM EDT Thrombocytopenia (CMS/HCC V24) Anemia due to stage 3b chronic kidney disease (CMS/HCC V24, CMS/HCC V28) FERRITIN Routine 01/15/2025 10:34 AM EDT Thrombocytopenia (CMS/HCC V24) Anemia due to stage 3b chronic kidney disease (CMS/HCC V24, CMS/HCC V28) COMPREHENSIVE METABOLIC PANEL Routine 07/30/2024 9:57 AM EST Thrombocytopenia (CMS/HCC V24) LIPID PANEL WITH REFLEX TO DIRECT LDL Routine 07/30/2024 9:57 AM EST Chest pain due to myocardial ischemia, unspecified ischemic chest pain type HEMOGLOBIN A1C Routine 01/11/2024 HM URINE ALBUMIN CREATININE RATIO Routine 01/10/2024 from Last 3 Months or Most Recently Relevant to Health Maintenance Results * IR Bx and Asp Bone Marrow (02/05/2025 11:06 AM EDT) Anatomical Region Laterality Modality Interventional R adiology 02/06/2025 9:06 AM EDT Impressions 02/06/2025 9:[address]-guided bone marrow core biopsy as well as bone marrow aspiration biopsy. -------- FINAL REPORT -------- Dictated By: Mike Guevara Dictated Date: 02/06/2025 09:06 ET Assigned Physician: Mike Guevara Reviewed and Electronically Signed By: Mike Guevara Signed Date: 02/06/2025 09:07 ET Workstation ID: [id number] Transcribed By: Self Edit Transcribed Date: 02/06/2025 09:06 ET Narrative 02/06/2025 9:07 AM EDT INDICATION: Lymphoma PROCEDURE: Consent obtained for CT guided bone marrow biopsy under conscious sedation. prior relevant studies: CT scan of the pelvis from February 19, 2022 MEDICATIONS: Local anesthesia: 5 cc of 1% buffered lidocaine administered subcutaneously. 5 cc of 0.25% bupivacaine administered along the periosteum. Sedation: Moderate intravenous sedation was initiated and maintained for 30 minutes while the patient was independently monitored by the radiology nurse under the supervision of the interventional radiologist. A total of 2 mg of Versed and 75 mcg of fentanyl administered during the procedure. Scanner: [employer] [address] Dose reduction technique: AEC (automated exposure control) Dose: total exam DLP 139 mGY per cm TECHNIQUE: Patient placed prone on the CT table and multiple axial images obtained through the pelvis. Appropriate area of the skin was marked, draped and prepped using maximum sterile barrier. Moderate sedation initiated followed by administration of local anesthetic. Under CT fluoroscopic guidance a 11-gauge coaxial needle was advanced into the posterior iliac bone. Bone marrow core biopsy performed followed by bone marrow aspiration. FINDINGS: Initial limited CT images of the pelvis demonstrate adequate percutaneous access into the posterior right iliac bone. Images obtained during localization and needle positioning demonstrate coaxial needle positioned within the posterior iliac bone. SPECIMENS: Core sample placed within formalin. Bone marrow aspirate samples placed while within green and purple top tubes. Procedure Note Mike Guevara MD - 02/06/2025 INDICATION: Lymphoma PROCEDURE: Consent obtained for CT guided bone marrow biopsy underconscious sedation. prior relevant studies: CT scan of the pelvis from February 19, 2022 MEDICATIONS: Local anesthesia: 5 cc of 1% buffered lidocaine administeredsubcutaneously. 5 cc of 0.25% bupivacaine administered along theperiosteum. Sedation: Moderate intravenous sedation was initiated and maintained for30 minutes while the patient was independently monitored by the radiologynurse under the supervision of the interventional radiologist. A total of2 mg of Versed and 75 mcg of fentanyl administered during the procedure. Scanner: [employer] [address] Dose reduction technique: AEC (automated exposure control) Dose: total exam DLP 139 mGY per cm TECHNIQUE: Patient placed prone on the CT table and multiple axial imagesobtained through the pelvis. Appropriate area of the skin was marked,draped and prepped using maximum sterile barrier. Moderate sedationinitiated followed by administration of local anesthetic. Under CTfluoroscopic guidance a 11-gauge coaxial needle was advanced into theposterior iliac bone. Bone marrow core biopsy performed followed by bonemarrow aspiration. FINDINGS: Initial limited CT images of the pelvis demonstrate adequatepercutaneous access into the posterior right iliac bone. Images obtained during localization and needle positioning demonstratecoaxial needle positioned within the posterior iliac bone. SPECIMENS: Core sample placed within formalin. Bone marrow aspiratesamples placed while within green and purple top tubes. IMPRESSION: CT-guided bone marrow core biopsy as well as bone marrow aspirationbiopsy. -------- FINAL REPORT -------- Dictated By: Mike Guevara Dictated Date: 02/06/2025 09:06 ET Assigned Physician: Mike Guevara Reviewed and Electronically Signed By: Mike Guevara Signed Date: 02/06/2025 09:07 ET Workstation ID: [id number] Transcribed By: Self Edit Transcribed Date: 02/06/2025 09:06 ET us Radha BOCANEGRA IMG IR PROCEDURES Final Resul t * Cytogentic Miscellaneous (02/05/2025 10:47 AM EDT) [facility] Scan Result See Scanned Result 02/14/2025 2:30 PM EDT EXTERNAL LAB (NON-INTERFAC ED) Bone Marrow Specimen from bone marrow obtained by aspiration / Unknown 02/05/2025 10:47 AM EDT 02/05/2025 11:18 AM EDT Radha BOCANEGRA LAB CYTOGENETICS ORDERABLES F inal Result EXTERNAL LAB (NON-INTERFACED) * Flow cytometry (02/05/2025 10:47 AM EDT) Pathologist [facility] Flow Cytometry Interpretation Bone marrow, Flow cytometry: - No monotypic B cell population identified. - Most of the lymphocytes are CD3-positive T cells including CD4-positive and CD8-positive subsets without diagnostic phenotypic aberrancy. - There is no increase in the proportion of FW38-gbtnzxys blasts (less than 1%). Note: The flow cytometric findings are not diagnostic of a B cell or T cell lymphoproliferative disorder. The proportion of BB00-zmjwuxji blasts is not increased. Although phenotypic maturation of granulocytes and monocyte appears generally campus recruiting coordinator, please note that myeloid disorders cannot be reliably excluded by flow cytometry. Correlation with the morphologic findings in the accompanying bone marrow aspirate and biopsy specimen is recommended/ See separate report ([id number]) for details. SPECIMEN: Bone Marrow ([id number]) VIABILITY: 95.9 TOTAL CELL YIELD: 58.3 x106/mL IMMUNOPHENOTYPIC FINDINGS: Lymphocytes are 11.3% of total. - T cells are 10.2% of total (90.6% of cells in lymphocyte gate) with no aberrant phenotype, CD4:CD8= 1.5. - B cells are 0.5% of total (4.5% of cells in lymphocyte gate) and are polytypic (kappa:lambda ratio = 1.4). The B cells show no significant expression of CD5, CD10, or CD38 and show no overexpression of CD200. - Plasma cells are 0.3 of total and express CD19 (dim) and CD45 (dim). - Granulocytes are 75.3% of total and show generally campus recruiting coordinator immunophenotypic maturation. - Monocytic cells are 6.2% of total and show generally campus recruiting coordinator immunophenotypic maturation. - CD45 dim cells are 2.7% of total. CD34+ Blasts are not increased (less than 1%). A small number of QB95-ujipqsqf cells with expression of CD10, CD19 and CD38 and very low side light scatter, compatible with hematogones is noted. Antibodies (27 markers): CD2, CD3, CD4, CD5, CD7, CD8, CD10, CD11b, CD13, CD14, CD15, CD16, CD19, CD20, CD33, CD34, CD38, CD45, CD56, CD64, CD117, CD123, CD200, HLA-DR, [place], Lambda, TCR??. 02/06/2025 5:56 PM EDT [facility] Disclaimer This test was developed and its performance characteristics determined by [facility]. It has not been cleared or approved by U.S. Food and Drug Administration. The FDA does not require this test to go through premarket FDA review. This test is used for clinical purposes. It should not be regarded as investigational or for research. This laboratory is certified under Clinical Laboratory Improvement Amendments of 1988 (CLIA) as qualified to perform high complexity clinical laboratory testing. 02/06/2025 5:56 PM EDT [facility] Bone Marrow Specimen from bone marrow obtained by aspiration / Unknown 02/05/2025 10:47 AM EDT 02/05/2025 1:35 PM EDT us Radha BOCANEGRA LAB BLOOD ORDERABLES Final Re sult [facility] [address] [place] [address], [place] [phone] * Bone marrow exam (02/05/2025 10:47 AM EDT) Cytogenetics Report, Addendum This case was sent to [facility], [address] [place], [place], (CLIA #[id number]) for Cytogenetic studies. Their diagnosis is as follows: Cytogenetics Oncology Chromosome Analysis Karyotype: 46,XY[20] Interpretation: NORMAL MALE KARYOTYPE Cytogenetic analysis shows a normal male karyotype in all cells analyzed. Comments: Standard cytogenetic analysis may not detect subtle submicroscopic rearrangements and may not include metaphases from abnormal cell populations with low mitotic rates or present in low levels. Test Detail: Metaphases Counted: 20 Metaphases Analyzed: 20 Metaphases Karyotyped: 2 Culture Type: 24EB, 48EB Banding Technique: GTG Banding Resolution: 375 Electronic Signature Electronic Signature Escobar Crespo, Ph.D., [facility] - Leanne Sneed M.D., Ph.D. [facility]. Report Date: 02/13/2025 05:31:41 PM ET (See scanned copy for full report) 1:01 PM EDT [facility] Addendum electronically signed by Escobar Kincaid MD on 02/14/2025 at 1:01 PM Final Diagnosis Bone Marrow, aspiration, core biopsy, and clot: - Mildly hypocellular bone marrow for patient age (approximately 20-25% overall cellularity) with maturing myeloid and erythroid precursors, an increased myeloid:erythroid ratio (possibly reflecting hemodilution), scattered megakaryocytes and less than 1% blasts. - No marrow infiltrative process is identified. Note: The marrow is variably cellular but overall appears hypocellular for patient's age, partly owing to an area with less than 10% cellularity. Trilineage hematopoiesis is present, including at least some areas with adequate numbers of megakaryocytes. No discrete lymphoid aggregates, no expansile sheets of plasma cells and no aggregates of immature-appearing mononuclear cells are identified. Flow cytometry shows a polytypic B cell population, a population of T cells without diagnostic phenotypic aberrancy, and no increase in the proportion of JP28-kmcewuro blasts. Reticulin staining shows no significant increase in reticulin-stained fibers (MF-0). A definitive morphologic cause of the patient's thrombocytopenia and normocytic anemia is not identified. The marrow appears to be mildly hypocellular, although it is difficult to exclude the possibility of sampling of subcortical marrow as a contributing factor to the hypocellular appearance. If the patient's cytopenias continue to progress, the possibility of an evolving marrow hypoplasia would warrant consideration. The patient has a clinical history of renal disease, which could contribute to the patient's anemia. Possible causes of thrombocytopenia include peripheral consumption/destructi on, immune-mediated causes, medication/toxin effects, etc. Although the morphologic changes are not diagnostic of a myelodysplastic syndrome, the possibility of a clonal cause of the patient's cytopenias could also be considered. Karyotype and molecular testing (NGS, [facility] Comprehensive Myeloid Disorders) is pending, addendum to follow. CBC (most recent CBC available in [facility] from 07/30/2024): WBC 7.8 k/uL, Hemoglobin 12.4 g/dL, Hematocrit 38.3%, MCV 97.5 fL, RDW 13.6%, Platelets 102 k/uL. Differential: Neutrophils: 62.7%, Lymphs: 23.4%, Monos: 10.3%, Eos: 2.7%, Basos: 0.5%, Immature granulocytes: 0.4%. CBC (most recent result available from [facility] (result dated 01/15/2025) (no differential count available): WBC 6.5 k/uL, Hemoglobin 10.5 g/dL, Hematocrit 32.3%, MCV 97 fL, RDW 12.8%, Platelets 84 k/uL. Bone marrow aspirate smear (Hawkins stain): Specimen quality: Suboptimal (few cellular marrow particles and abundant stripped/crushed/dege nerated cells). Myeloid:Erythroid ratio: 8.9 (increased; may represent hemodilution). Myeloid maturation: Majority of cells are mature neutrophils with relatively sparse granulocytic precursors. Erythroid maturation: Scant maturing erythroid precursors are present. Megakaryocyte number and morphology: Megakaryocytes appear adequate in number. Rare hypolobated forms are noted. Iron stain: Cellular marrow particles are not identified and storage iron cannot be assessed. Although pathologic ring sideroblasts are not identified, the proportion of nucleated erythroid precursors is low. 400 cell Differential count of aspirate: 0.5% Blasts 0.25% Promyelocytes 5.25% Myelocytes/metamyeloc ytes 68.75% Neutrophils/bands 2.75% Monocytes 4.0% Eosinophils 0% Basophils 9.25% Lymphocytes 0.5% Plasma cells 8.75% Erythroid precursors Microscopic finding of bone marrow biopsy and clot (H and E, PAS): Specimen quality: -Core: Adequate for evaluation (approximately 15 mm). -Clot: Rare cellular marrow particles are present. Cellularity: Mildly hypocellular for patient age (overall cellularity estimated at 20-25%. Some areas of the bone marrow biopsy are markedly hypocellular (less than 10%). Myeloid maturation: Maturing myeloid precursors are present. Erythroid maturation: Maturing erythroid precursors are present. Megakaryocyte number and maturation: Megakaryocytes appear adequate in number with occasional multinucleated megakaryocytes noted. Plasma cells: Plasma cells are present; no expansile aggregates of plasma cells are identified. Lymphocytes: No discrete lymphoid aggregates are identified. Reticulin stain: There is no significant increase in reticulin stained fibers (MF-0). Other findings: PAS Stain highlights megakaryocytes. The myeloid:erythroid ratio appears lower in the tissue sections than was appreciated in the bone marrow aspirate smear slides. An immunohistochemical study was performed on the bone marrow core biopsy specimen to assess the proportion of NX90-wjnzdwzp blasts in the tissue. There are scattered HW25-snpchrul mononuclear cells and endothelial cells identified. The proportion of IT56-ciprzwbd mononuclear cells does not appear increased. Flow Cytometry ([id number]) - No monotypic B cell population identified. - Most of the lymphocytes are CD3-positive T cells including CD4-positive and CD8-positive subsets without diagnostic phenotypic aberrancy. - There is no increase in the proportion of VK96-mkvfgaze blasts (less than 1%). Note: The flow cytometric findings are not diagnostic of a B cell or T cell lymphoproliferative disorder. The proportion of LC81-ohqphdvm blasts is not increased. Although phenotypic maturation of granulocytes and monocyte appears generally campus recruiting coordinator, please note that myeloid disorders cannot be reliably excluded by flow cytometry. SPECIMEN: Bone Marrow VIABILITY: 95.9 TOTAL CELL YIELD: 58.3 x106/mL IMMUNOPHENOTYPIC FINDINGS: Lymphocytes are 11.3% of total. - T cells are 10.2% of total (90.6% of cells in lymphocyte gate) with no aberrant phenotype, CD4:CD8= 1.5. - B cells are 0.5% of total (4.5% of cells in lymphocyte gate) and are polytypic (kappa:lambda ratio = 1.4). The B cells show no significant expression of CD5, CD10, or CD38 and show no overexpression of CD200. - Plasma cells are 0.3 of total and express CD19 (dim) and CD45 (dim). - Granulocytes are 75.3% of total and show generally campus recruiting coordinator immunophenotypic maturation. - Monocytic cells are 6.2% of total and show generally campus recruiting coordinator immunophenotypic maturation. - CD45 dim cells are 2.7% of total. CD34+ Blasts are not increased (less than 1%). A small number of IE84-hrohiara cells with expression of CD10, CD19 and CD38 and very low side light scatter, compatible with hematogones is noted. Antibodies (27 markers): CD2, CD3, CD4, CD5, CD7, CD8, CD10, CD11b, CD13, CD14, CD15, CD16, CD19, CD20, CD33, CD34, CD38, CD45, CD56, CD64, CD117, CD123, CD200, HLA-DR, [place], Lambda, TCR??. This test was developed and its performance characteristics determined by [facility]. It has not been cleared or approved by U.S. Food and Drug Administration. The FDA does not require this test to go through premarket FDA review. This test is used for clinical purposes. It should not be regarded as investigational or for research. This laboratory is certified under the Clinical Laboratory Improvement Amendments of 1988 (CLIA) as qualified to perform high complexity clinical laboratory testing. Additional Testing (Addendum to follow): Conventional karyotype [facility] - Myeloid Disorders (NGS) All special stains were performed with appropriate controls. 1:01 PM [facility] Comment The findings were discussed with SAHRA Charles by Dr. Derick Kincaid on 02/12/2025. NGS testing was requested in order to further assess for the possibility of a clonal cause for this patient's cytopenias. 1:01 PM T [facility] Gross Description A. Bone Marrow Aspirate, : Labeled bone marrow aspirate smears . Eleven slides are prepared. One slide subsequently is stained for iron. Two slides are stained with Hawkins's giemsa. Approximately 4 ml of bone marrow aspirate is received in a purple top tube and submitted to [facility], flow cytometry lab, [place], [place] for flow cytometric studies. Additionally, 3ml of bone marrow aspirate is received in a purple top tube and approximately 6ml of bone marrow aspirate is received in two green top tubes and submitted in to [employer], [place], [place], for cytogenetic studies. B. Bone Marrow Biopsy, : Labeled bone marrow . Received in formalin is a hard, fuentes-red, 1.5 x 0.2 cm indurated bone core and a separate 0.5 x 0.2 x 0.1 cm aggregate of grumous tissue/blood clot which is wrapped in paper and submitted in toto in two cassettes, x 2. 1-bone marrow biopsy, one piece, following decalcification in Immunocal (block held overnight for optimal formalin fixation) 2-clot, multiple pieces TS 1:01 PM EDT [facility] Disclaimer Unless otherwise specified, all tissue is 10% NB formalin fixed and paraffin embedded. NOTE: The immunohistochemical tests and in situ hybridization tests were developed and their performance characteristics were determined by [facility]. They have not been cleared or approved by the U.S. Food and Drug Administration. The FDA has determined that such clearance or approval is not necessary. These tests are used for clinical purposes. They should not be regarded as investigational or for research. This laboratory is certified under the Clinical Laboratory Improvement Amendments of 1988 (CLIA) as qualified to perform high complexity clinical laboratory testing. (controls appropriate) 1:01 PM EDT [facility] Bone Marrow Specimen from bone marrow obtained by aspiration / Unknown 02/05/2025 10:47 AM EDT 02/05/2025 11:16 AM EDT Bone marrow specimen (specimen) Specimen from bone marrow obtained by biopsy / Unknown 02/05/2025 10:47 AM EDT 02/05/2025 11:16 AM EDT Radha BOCANEGRA LAB PATHOLOGY ORDERABLES Edit ed Result - Final Performing Organization Address City/[facility]/ZIP Co de Phone Number [facility] [address] [place] [address], * POCT Glucose, blood (02/05/2025 10:28 AM EDT) Only the most recent of2 resultswithin the time period is included. Glucose POCT 94 70 - 100 mg/dL 02/05/2025 10:29 AM EDT [facility] Blood Capillary blood specimen / Unknown 02/05/2025 10:28 AM EDT 02/05/2025 10:30 AM EDT Generic Provider Poct LAB POINT OF CARE TEST DOCKED DEVICE UNSOLICITED RESULTS Final Result [facility] [address] [place] [address], [place] [phone] * Iron and TIBC (01/15/2025 10:34 AM EDT) [facility] Iron 87 50 - 160 mcg/dL LAB CHEMISTRY METHOD 01/15/2025 1:01 PM EDT [facility] TIBC 254 250 - 450 mcg/dL LAB CHEMISTRY METHOD 01/15/2025 1:01 PM EDT [facility] Iron Saturation 34 20 - 50 % LAB CHEMISTRY METHOD 01/15/2025 1:01 PM EDT [facility] Blood Venous blood specimen / Unknown Venipuncture / Unknown 01/15/2025 10:34 AM EDT 01/15/2025 12:02 PM EDT us Radha BOCANEGRA LAB BLOOD ORDERABLES Final Re sult [facility] [address] [place] [address], [place] [phone] * Ferritin (01/15/2025 10:34 AM EDT) [facility] Ferritin 43 26 - 388 ng/mL LAB CHEMISTRY METHOD 01/15/2025 1:01 PM EDT [facility] Blood Venous blood specimen / Unknown Venipuncture / Unknown 01/15/2025 10:34 AM EDT 01/15/2025 12:02 PM EDT Radha BOCANEGRA LAB BLOOD ORDERABLES Final Re sult [facility] [address] [place] [address], [place] [phone] * Hepatic function panel (01/15/2025 10:34 AM EDT) [facility] Total Protein 6.3 6.0 - 8.0 g/dL LAB CHEMISTRY METHOD 01/15/2025 1:01 PM EDT [facility] Albumin 3.4 3.2 - 5.0 g/dL LAB CHEMISTRY METHOD 01/15/2025 1:01 PM [facility] Total Bilirubin 0.3 0.0 - 1.4 mg/dL LAB CHEMISTRY METHOD 01/15/2025 1:01 PM [facility] Bilirubin, Direct 0.1 0.0 - 0.3 mg/dL LAB CHEMISTRY METHOD 01/15/2025 1:01 PM [facility] Bilirubin, Indirect 0.2 0.0 - 1.1 mg/dL LAB CHEMISTRY METHOD 01/15/2025 1:01 PM [facility] ALT (SGPT) 44 10 - 60 unit/L LAB CHEMISTRY METHOD 01/15/2025 1:01 PM [facility] AST (SGOT) 26 10 - 42 unit/L LAB CHEMISTRY METHOD 01/15/2025 1:01 PM [facility] Alkaline Phosphatase 63 42 - 121 unit/L LAB CHEMISTRY METHOD 01/15/2025 1:01 PM [facility] Blood Venous blood specimen / Unknown Venipuncture / Unknown 01/15/2025 10:34 AM EDT 01/15/2025 12:02 PM EDT us Radha BOCANEGRA LAB BLOOD ORDERABLES Final Re sult [facility] [address] [place] [address], * Lipid panel with reflex to direct LDL (07/30/2024 9:57 AM EST) Cholesterol 127 0 - 200 mg/dL LAB CHEMISTRY METHOD 07/30/2024 4:32 PM EST [facility] Triglycerides 140 0 - 150 mg/dL LAB CHEMISTRY METHOD 07/30/2024 4:32 PM [facility] HDL 68 >=40 mg/dL LAB CHEMISTRY METHOD 07/30/2024 4:32 PM [facility] LDL Calculated 31 0 - 100 mg/dL LAB CHEMISTRY METHOD 07/30/2024 4:32 PM [facility] VLDL Cholesterol Rick 28 mg/dL LAB CHEMISTRY METHOD 07/30/2024 4:32 PM [facility] Non HDL Chol. (LDL+VLDL) 59 <145 mg/dL LAB CHEMISTRY METHOD 07/30/2024 4:32 PM [facility] Chol/HDL Ratio 1.9 0.0 - 4.4 LAB CHEMISTRY METHOD 07/30/2024 4:32 PM [facility] Blood Venous blood specimen / Unknown Venipuncture / Unknown 07/30/2024 9:57 AM EST 07/30/2024 9:57 AM EST us Francisco J Galeana MD LAB BLOOD ORDERABLES Final Resul t [facility] [address] [place] [address], [place] [phone] * (ABNORMAL) Comprehensive metabolic panel (07/30/2024 9:57 AM EST) Sodium 138 133 - 145 mmol/L LAB CHEMISTRY METHOD 07/30/2024 4:48 PM [facility] Comment:Results verified by repeat testing Potassium 4.5 3.5 - 5.5 mmol/L LAB CHEMISTRY METHOD 07/30/2024 4:48 PM [facility] Chloride 107 96 - 110 mmol/L LAB CHEMISTRY METHOD 07/30/2024 4:48 PM [facility] CO2 27 21 - 32 mmol/L LAB CHEMISTRY METHOD 07/30/2024 4:48 PM [facility] Anion Gap 4 3 - 11 LAB CHEMISTRY METHOD 07/30/2024 4:48 PM [facility] Glucose 68(L) 70 - 100 mg/dL LAB CHEMISTRY METHOD 07/30/2024 4:48 PM [facility] BUN 28(H) 5 - 25 mg/dL LAB CHEMISTRY METHOD 07/30/2024 4:48 PM [facility] Creatinine 2.44(H) 0.70 - 1.30 mg/dL LAB CHEMISTRY METHOD 07/30/2024 4:48 PM [facility] eGFR 28(L) >=60 mL/min/1. 73m2 LAB CHEMISTRY METHOD 07/30/2024 4:48 PM [facility] Comment:Calculation based on the Chronic Kidney Disease Epidemiology Collaboration (CKD-EPI) equation refit without adjustment for race. BUN/Creatinine Ratio 11.5 LAB CHEMISTRY METHOD 07/30/2024 4:48 PM [facility] Calcium 9.8 8.5 - 10.5 mg/dL LAB CHEMISTRY METHOD 07/30/2024 4:48 PM [facility] AST (SGOT) 28 10 - 42 unit/L LAB CHEMISTRY METHOD 07/30/2024 4:48 PM [facility] ALT (SGPT) 43 10 - 60 unit/L LAB CHEMISTRY METHOD 07/30/2024 4:48 PM [facility] Alkaline Phosphatase 84 42 - 121 unit/L LAB CHEMISTRY METHOD 07/30/2024 4:48 PM [facility] Total Protein 7.0 6.0 - 8.0 g/dL LAB CHEMISTRY METHOD 07/30/2024 4:48 PM [facility] Albumin 3.9 3.2 - 5.0 g/dL LAB CHEMISTRY METHOD 07/30/2024 4:48 PM [facility] Total Bilirubin 0.3 0.0 - 1.4 mg/dL LAB CHEMISTRY METHOD 07/30/2024 4:48 PM [facility] Blood Venous blood specimen / Unknown Venipuncture / Unknown 07/30/2024 9:57 AM EST 07/30/2024 9:57 AM EST Radha BOCANEGRA LAB BLOOD ORDERABLES Final Re sult [facility] [address] [place] [address], * Hemoglobin A1c (01/11/2024) Hemoglobin A1C 0.0 % Comment:No Interpretation Blood Venous blood specimen / Unknown Historical Provider LAB BLOOD ORDERABLES Gertrude l Result * HM Urine Albumin Creatinine Ratio (01/10/2024) HM Urine Albumin Creatinine Ratio Abstracted Historical Provider HEALTH MAINTENANCE Final Result from Last 3 Months or Most Recently Relevant to Health Maintenance Insurance MEDICARE [facility] Advance Directives Documents on File Type Date Recorded Patient Hot [place] Worker Expl anation Health Care Decision (hx) 06/04/2021 AD LOPEZ DIRECTIVE Health Care Decision (hx) 06/04/2021 AD LOPEZ DIRECTIVE Health Care Decision (hx) 06/04/2021 AD LOPZE DIRECTIVE Health Care Decision (hx) 06/04/2021 AD LOPEZ DIRECTIVE Health Care Decision (hx) 06/04/2021 AD LOPEZ DIRECTIVE Health Care Decision (hx) 06/04/2021 AD LOPEZ DIRECTIVE Health Care Decision (hx) 06/04/2021 AD LOPEZ DIRECTIVE Health Care Decision (hx) 06/04/2021 AD LOPEZ DIRECTIVE Health Care Decision (hx) 06/04/2021 AD LOPEZ DIRECTIVE Health Care Decision (hx) 06/04/2021 AD LOPEZ DIRECTIVE Care Teams Jigsawyer Relationship Specialty Start Date End Date Rufino Rajput MD [address] [place] [address] PCP - General Internal Medicine 01/28/21
--- OUTSIDE RECORDS SUMMARY | 2025-02-15 10:24 | XMS_ITS | Patient Health Record ---
[facility] Address [address] [place] [address] Care Team Providers Care Landscape Architecture Teacher Name Role Phone Regulo CONKLIN, [facility] Primary [facility] Provider Ni Almanza Unavailable [phone] Zhang Luis Unavailable [phone] Allergies Allergen (clinical drug ingredient) Drug/Non Drug [...] (HH) 7.0 HEMOGLOBIN A1C (GLYCOHEMOGLO BIN) Reviewed date:11/16/2024 09:34:54 AM Interpretation: Performing Lab: Notes/Report: HEMOGLOBIN A1C % (HH) 6.8 Reason For Referral No Information Medications Medication SIG (Take, Route, Frequency, Duration) Notes Start Date End Date Status Zenpep Not-Taking Vitamin B-1 100 MG 1 tablet Orally Once a day; Duration: 30 day(s) Not-Taking Enulose Not-Taking Zolpidem Tartrate No t-Taking Amoxicillin Active Tamsulosin HCl 0.4 MG 1 capsule Orally Once a day; Duration: 30 day(s) Not-Taking Sodium Bicarbonate 650 MG as directed Orally Active FreeStyle Lite Test In Vitro; Duration: 90 Not-Taking Ketostix In Vitro; Duration: 50 Not-Taking Calcitriol 0.25 MCG 1 capsule Orally Three times a Week Active Lyrica 50 MG 1 capsule Orally Three times a day Not-Taking Pregabalin 100 MG 1 capsule Orally Three times a day Active Lisinopril 20 MG Oral; Duration: 90 Not-Taking Lactulose Not-Taking Furosemide 40 MG 1 tablet Orally Once a day; Duration: 30 day(s) Not-Taking Basaglar KwikPen Not -Taking Doxycycline Hyclate Active Omeprazole 40 MG 1 capsule 30 minutes before morning meal Orally Once a day; Duration: 30 day(s) Not-Taking Insulin Cartridge 3ML Not-Taking NovoLOG sliding scale Active Metoprolol Succinate ER 50 MG 1 tablet Orally Once a day Not-Taking Levemir Active Extra Depth Diabetic Shoes with 3 Pair Custom heat-molded multi-density innersoles for 1 year Dx: 02/25/2021 Not-Taking Creon 6 a day Active Antibiotic Not-Takin g FreeStyle Lancets ; Duration: 90 Not-Taking Extra Depth Diabetic Shoes with 3 Pair Custom heat-molded multi-density innersoles for 1 year Dx: Active glipiZIDE Not-Taking Extra Depth Orthopedic Shoes (1 Pair) with Customized Heat Molded Multidensity Innersoles (3 Pair) as directed Dx: NIDDM/Polyneuropathy (E11.42), Hammertoe Foot Deformity (M20.41,M20.42), Preulcerative Skin Lesion(s) (L85.1 07/12/2024 Active Vitamin C Not-Taking Spironolactone 25 MG 1 tablet Orally; Duration: 30 day(s) Active Folic Acid 1 MG Oral; Duration: 90 Not-Taking Aspirin 81 MG 1 tablet Orally Once a day Active Ferrous Sulfate 325 (65 Fe) MG 1 tablet Orally Once a day Not-Taking Atorvastatin Calcium 20 MG 1 tablet Orally Once a day Active glyBURIDE 5 MG Oral; Duration: 30 Not-Taking Multivitamins Orally Active Gabapentin 600 MG Oral; Duration: 90 Not-Taking metFORMIN HCl 1000 MG Oral; Duration: 30 Not-Taking Nitrostat 0.4 MG Sublingual No t-Taking Physical Therapy . . . 2-3x/week; Duration: 3-4 weeks 03/01/2014 Not-Taking Physical Therapy . . . 2-3x/week; Duration: 3-4 weeks Not-Taking Immunizations Vaccine Route Administration Date Status Comme nts Influenza Unknown 03/25/2020 Administered Influenza Unknown 04/25/2023 Administered COVID-19 Pfizer BioNTech Vaccine Unknown 04/25/2021 Administered 1st 09/18/2020 2nd 10/09/2020 Social History Tobacco Use: Social History Observation [...] Problem Status W/U Status Risk Notes Problem Other hammer toe(s) (acquired), left foot (M20.42) Active confirmed Problem Polyneuropathy due to type 2 diabetes mellitus (387104493) Type 2 diabetes mellitus with diabetic polyneuropathy (E11.42) Active confirmed Problem Neuropathic ulcer of right foot (disorder) ([id number] 02) Neuropathic ulcer of right foot, 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) Active confirmed Response to treatment Vital Signs Blood pressure diastolic 70 mm Hg 11/02/2024 Height 5ft 11in in 11/16/2024 Blood pressure systolic 120 mm Hg 11/02/2024 Weight 155 lbs 11/16/2024 BMI 21.62 kg/m2 11/16/2024 Procedures Procedure Date Ordered Date Performed Result Body Sit e 07163-VVRRSJQ NAIL, 6 OR MORE 07/12/2024 N/A 68669-JPXH SKIN LESIONS, OVER 4 07/12/2024 N/A 37673-DZQDQLL NAIL, 6 OR MORE 11/02/2024 N/A 80693-ANRE SKIN LESIONS, OVER 4 11/02/2024 N/A Encounters Encounter Location Date Provider Diagnosis [facility] [address] [address] 02/24/2024 Zhang Luis Type 1 diabetes mellitus with diabetic polyneuropathy E10.42 ; Tinea unguium B35.1 ; Pain in right toe(s) M79.674 ; Pain in left toe(s) M79.675 ; Hallux valgus (acquired), left foot M20.12 ; Skin disease L98.9 ; Hallux rigidus, right foot M20.21 ; Localized edema R60.0 ; Pain in left foot M79.672 and Pain in right foot M79.[address] [address] 05/04/2024 Zhang Luis Type 1 diabetes mellitus with diabetic polyneuropathy E10.42 ; Tinea unguium B35.1 ; Pain in right toe(s) M79.674 ; Pain in left toe(s) M79.675 ; Hallux valgus (acquired), left foot M20.12 ; Skin disease L98.9 ; Hallux rigidus, right foot M20.21 ; Localized edema R60.0 ; Pain in left foot M79.672 and Pain in right foot M79.[address] [address] 07/12/2024 Ni Leone Other hammer toe(s) (acquired), right foot M20.41 ; Other hammer toe(s) (acquired), left foot M20.42 ; Type 2 diabetes mellitus with diabetic polyneuropathy E11.42 and Tinea unguium B35.[address] [address] 11/02/2024 Ni Leone Type 2 diabetes mellitus with diabetic polyneuropathy E11.42 ; Neuropathic ulcer of right foot, limited to breakdown of skin L97.511 and Tinea unguium B35.[address] [address] 11/16/2024 Ni Leone Neuropathic ulcer of right foot, limited to breakdown of skin L97.511 Assessments Encounter Date Diagnosis (ICD Code) Assessment [...] CARE INSTRUCTIONS. pdf (WOUND CARE INSTRUCTIONS. pdf) 11/16/2024 Neuropathic ulcer of right foot, limited to breakdown of skin (ICD-10 - L97.511) Patient Educated with: WOUND CARE INSTRUCTIONS. pdf (WOUND CARE INSTRUCTIONS. pdf) 11/02/2024 Tinea unguium (ICD-10 - B35.1) 07/12/2024 Type 2 diabetes mellitus with diabetic polyneuropathy (ICD-10 - E11.42) 05/04/2024 Tinea unguium (ICD-10 - B35.1) 02/24/2024 Tinea unguium (ICD-10 - B35.1) 02/24/2024 Pain in right toe(s) (ICD-10 - M79.674) 05/04/2024 Pain in right toe(s) (ICD-10 - M79.674) 07/12/2024 Tinea unguium (ICD-10 - B35.1) 05/04/2024 Pain in left toe(s) (ICD-10 - M79.675) 02/24/2024 Pain in left toe(s) (ICD-10 - M79.675) 02/24/2024 Skin disease (ICD-10 - L98.9) 02/24/2024 Hallux valgus (acquired), left foot (ICD-10 - M20.12) 05/04/2024 Hallux valgus (acquired), left foot (ICD-10 - M20.12) 02/24/2024 Hallux rigidus, right foot (ICD-10 - M20.21) 05/04/2024 Skin disease (ICD-10 - L98.9) 02/24/2024 Localized edema (ICD-10 - R60.0) 05/04/2024 Hallux rigidus, right foot (ICD-10 - M20.21) 05/04/2024 Localized edema (ICD-10 - R60.0) 02/24/2024 Pain in left foot (ICD-10 - M79.672) 02/24/2024 Pain in right foot (ICD-10 - M79.671) 05/04/2024 Pain in left foot (ICD-10 - M79.672) 05/04/2024 Pain in right foot (ICD-10 - M79.671) 11/02/2024 Other Patient Educated with: DIABETIC FOOT CARE INSTRUCTIONS. pdf (DIABETIC FOOT CARE INSTRUCTIONS. pdf) Plan Of Treatment Pending Test Test Name Order Date X ray : Foot, left 2V 01/08/2014 X ray : Foot, right 2V 01/08/2014 X ray : Foot, left 3V 02/25/2021 X ray : Foot, right 3V 02/25/2021 X ray : Foot, right 3V 12/31/2022 51847-QBAXWEF NAIL, 6 OR MORE 07/12/2024 77028-UKEEQWL NAIL, 6 OR MORE 11/02/2024 22075-UJKJHZT SKIN/TISSUE 10/07/2023 95212-TPTJKXT SKIN/TISSUE 04/30/2021 04278-ILYMZBP SKIN/TISSUE 08/03/2021 04025-ZJAX SKIN LESIONS, OVER 4 07/12/20 24 51185-INHO SKIN LESIONS, OVER 4 11/03/19 25 61249-RYJG SKIN LESIONS, 2 TO 4 08/03/19 22 03436-LBHH SKIN LESIONS, 2 TO 4 04/30/20 21 18381-DTKA SKIN LESIONS, 2 TO 4 02/26/20 21 04378-SCVLLYSW OF HEMATOMA/FLUID 022 Next Appt Details Provider Name:Ni Peoplesximena duncan, 02/20/2025 09:00:00 AM, [address] [place] [address], [place], [address], Insurance Providers Payer Name Payer Address Payer Phone Subscriber Number Group Number Insured Name Patient Relationship to Insured Coverage Start Date Coverage End Date Medicare [employer] [address] [place] [address] [phone] [id number] Quentin Lara Self - patient is the insured [address] [place] [address] [address] [place] [address] [phone] [id number] Quentin Lara Self - patient is [...] weeks -rehab 6wks 05/29/2021 [facility] - pneumonia 06/2013--14
--- OUTSIDE RECORDS SUMMARY | 2025-02-15 10:24 | XMS_ITS ---
Author [facility] Organization Unknown Results Test Name/Text Value Interpretation Date Range Source POC Glucose 76.0 mg/dL Normal 02/03/2024 65 - 99 [facility] POC Glucose 103.0 mg/dL Above high normal 02/03/2024 65 - 99 [facility] Est. average glucose Bld gHb Est-mCnc 166.0 mg/dL Normal 01/12/2024 [facility] Hgb A1c MFr Bld 7.4 % Above high normal 01/12/2024 - 5.7 [facility] CO2 SerPl-sCnc 19.0 mmol/L Below low normal 01/11/2024 22 - 33 [facility] Anion Gap Bld-sCnc 11.0 Normal 01/11/2024 7 - 17 [facility] Calcium SerPl-mCnc 9.0 mg/dL Normal 01/11/2024 8.7 - 10.5 [facility] BUN/Creat SerPl 16.0 Ratio Normal 01/11/2024 10 - 25 [facility] Potassium SerPl-sCnc 5.2 mmol/L Normal 01/11/2024 3.4 - 5 .3 [facility] BUN SerPl-mCnc 34.0 mg/dL Above high normal 01/11/2024 8 - 2 1 [facility] GFR/BSA.pred SerPlBld KQH-LKA-HcQNrm 34.0 Below low normal 01/11/2024 59 - [facility] Chloride SerPl-sCnc 108.0 mmol/L Above high normal 98 - 107 [facility] Glucose SerPl-mCnc 231.0 mg/dL Above high normal 01/11/2024 65 - 99 [facility] Creat SerPl-mCnc 2.1 mg/dL Above high normal 01/11/2024 0.5 - 1.3 [facility] Sodium SerPl-sCnc 138.0 mmol/L Normal 01/11/2024 136 - 14 5 [facility] Prealb SerPl-mCnc 16.0 mg/dL Below low normal 01/11/2024 20 - 40 [facility] Transferrin SerPl-mCnc 220.0 mg/dL Normal 01/11/2024 200 - 360 [facility] ALT SerPl-cCnc 23.0 U/L Normal 01/11/2024 10 - 55 [facility] T Albumin SerPl-mCnc 3.7 g/dL Normal 01/11/2024 3.4 - 4.8 [facility] ALP SerPl-cCnc 87.0 U/L Normal 01/11/2024 45 - 128 [facility] T Albumin/Glob SerPl 1.1 Ratio Normal 01/11/2024 1 - 3 [facility] AST SerPl-cCnc 25.0 U/L Normal 01/11/2024 10 - 55 [facility] T Globulin Ser Calc-mCnc 3.3 g/dL Normal 01/11/2024 1.5 - 3.9 [facility] Bilirub Direct SerPl-mCnc <0.2 mg/dL Normal 01/11/2024 0 - 0.2 [facility] Bilirub SerPl-mCnc 0.2 mg/dL Normal 01/11/2024 0.2 - 1 [facility] Prot SerPl-mCnc 7.0 g/dL Normal 01/11/2024 6.3 - 8.[address] INR PPP 1.0 Normal 01/11/2024 [facility] Prothrombin time 11.7 seconds Normal 01/11/2024 10 - 13.5 [facility] Anticoagulant Information not given Normal 01/11/2024 [facility] RDW RBC Auto-Rto 13.9 % Normal 01/11/2024 11.5 - 14.5 [facility] Basophils num Bld Auto 0.03 Thou/uL Normal 01/11/2024 0 - 0.2 [facility] Basophils/leuk NFr Bld Auto 0.5 % Normal 01/11/2024 [facility] MCHC RBC Auto-mCnc 31.7 g/dL Normal 01/11/2024 30 - 36 [facility] PMV Bld Auto 12.4 fL Normal 01/11/2024 7.5 - 12.5 [facility] MCV RBC Auto 99.0 fL Normal 01/11/2024 80 - 100 [facility] Eosinophil/leuk NFr Bld Auto 2.9 % Normal 01/11/2024 [facility] Monocytes num Bld Auto 0.61 Thou/uL Normal 01/11/2024 0.2 - 1.5 [facility] Lymphocytes/leuk NFr Bld Auto 30.4 % Normal 01/11/2024 [facility] WBC num Bld Auto 5.9 Thou/uL Normal 01/11/2024 4 - 11 [facility] RBC num Bld Auto 3.69 Mil/uL Below low normal 01/11/2024 4.5 - 6.2 [facility] Hct VFr Bld Auto 36.6 % Below low normal 01/11/2024 39 - 54 [facility] Neutrophils/leuk NFr Bld Auto 55.5 % Normal 01/11/2024 [facility] Eosinophil num Bld Auto 0.17 Thou/uL Normal 01/11/2024 0 - 0.7 [facility] Monocytes/leuk NFr Bld Auto 10.4 % Normal 01/11/2024 [facility] Imm Granulocytes num Bld Auto 0.02 Thou/uL Normal 01/11/2024 0 - 0.1 [facility] Platelet num Bld Auto 106.0 Thou/uL Below low normal 01/11/2024 150 - 450 [facility] Imm Granulocytes/leuk NFr Bld Auto 0.3 % Normal 01/11/2024 [facility] Lymphocytes num Bld Auto 1.79 Thou/uL Normal 01/11/2024 1.5 - 4.5 [facility] MCH RBC Qn Auto 31.4 pg Above high normal 01/11/2024 27 - 31 [facility] Hgb Bld-mCnc 11.6 g/dL Below low normal 01/11/2024 13 - 17.7 [facility] Neutrophils num Bld Auto 3.26 Thou/uL Normal 01/11/2024 2 - 7.5 [facility] History of Medication Use Medication Directions Dispensed Refills Start Date End Date Stat calcitRIOL (ROCALTROL) 0.25 MCG capsule Take 1 capsule (0.25 mcg total) by mouth every morning. 01/10/2024 04/10/2024 active pancrelipase (Creon) [address] Particles Take 1 capsule (24,000 Units total) by mouth 3 (three) times a day with meals. active Allergies Allergen Reaction Severity Comment Documented Date Source Statu s CODEINE PALPITATIONS 12/14/2013 [facility] active Problems Problem Status Onset Date Problem Type Date of Resolution Source Alcoholic cirrhosis active 2024-01-08 ProblemAct [facility] Peripheral polyneuropathy active 2024-01-08 ProblemAct [facility] Acute osteomyelitis of right ankle or foot active 2024-01-08 ProblemAct [facility] Pure hypercholesterolemia active 2024-01-08 ProblemAct [facility] Anxiety and depression active 2024-01-08 ProblemAct [facility] Dilation of aorta active 2024-01-10 ProblemAct [facility] Osteomyelitis active 2024-02-03 ProblemAct [facility] T History of alcohol abuse active 2024-01-08 ProblemAct [facility] Gastroesophageal reflux disease without esophagitis active 2024-01-08 ProblemAct [facility] Essential hypertension active 2024-01-08 ProblemAct [facility] Coronary artery disease involving [place] heart without angina pectoris active 2024-01-08 ProblemAct [facility] T Hallux valgus (acquired), left foot active EncounterDiagnosisAct [facility] Painful orthopaedic hardware active 2024-01-08 ProblemAct HHT Type 2 diabetes mellitus without complication, without long-term current use of insulin active 2024-01-08 ProblemAct [facility] Pancreatic insufficiency active 2024-01-08 ProblemAct [facility] Encounters Encounter Type Encounter Reason Primary Diagnosis Location Date [facility] 09/11/2024 Ambulatory Hallux valgus (acquired), left foot Hallux valgus (acquired), left foot [facility] 09/11/2024 Ambulatory [facility] 07/10/2024 Ambulatory Hallux valgus (acquired), left foot Hallux valgus (acquired), left foot [facility] 07/10/2024 Ambulatory [facility] 05/29/2024 Ambulatory Hallux valgus (acquired), left foot Hallux valgus (acquired), [facility] Hallux valgus (acquired), left foot Hallux valgus (acquired), left foot [facility] 05/08/2024 Ambulatory [facility] 04/24/2024 Ambulatory Hallux valgus (acquired), left foot Hallux valgus (acquired), left foot [place] [facility] 04/24/2024 Ambulatory [facility] Other hammer toe (s) (acquired), left foot [facility], [facility] 04/16/2024 Ambulatory [place] [facility] 03/13/2024 Ambulatory Pain in right ankle and joints of right foot Pain in right ankle and joints of right foot [place] [facility] 03/13/2024 Ambulatory [place] [facility] 02/21/2024 Ambulatory Other osteomyelitis, ankle and foot Other osteomyelitis, ankle and foot [place] [facility] 02/21/2024 Ambulatory [place] [facility] 02/07/2024 Ambulatory Pain due to internal orthopedic prosthetic devices, implants and grafts, initial encounter Pain due to internal orthopedic prosthetic devices, implants and grafts, initial encounter [place] [employer] [facility] 02/07/2024 Ambulatory Pain due to internal orthopedic prosthetic devices, implants and grafts, initial encounter Pain due to internal orthopedic prosthetic devices, implants and grafts, initial encounter [place] [facility] 02/03/2024 Ambulatory Encounter for other preprocedural examination Encounter for other preprocedural examination [place] [facility] [facility] 01/11/2024 Ambulatory [place] [facility] 12/27/2023 Ambulatory Pain in right ankle and joints of right foot Pain in right ankle and joints of right foot [place] [employer] 12/27/2023 Care Team Organization Name Specialty Phone Email Start Date End Da te [facility], [facility] 03/15/2024 [facility] CASSANDRA [facility] 12/27/2023 10/20/2024 [place] [facility] DEVEN TRUJILLO Primary Care 12/27/2023 [place] [facility] 12/21/2023
--- NOTE | 2025-02-19 13:51 | A.OFFVIS_ITS ---
Intake Visit Reasons: Pregabalin Discussion (YASH: 07/11/23) Allergies codeine Allergy (Unknown, Verified 09/13/24 08:39) Unknown HPI HPI Pregabalin Discussion (YASH: 07/11/23): Details: History of Present Illness The patient is a 69-year-old male presenting with chronic pain and peripheral diabetic neuropathy. The patient reports worsening numbness associated with neuropathy, now extending to his knees and hands. He describes the pain as intermittent but severe, likening it to being stabbed with a knife. The pain is managed with pregabalin (Lyrica), which he takes consistently, noting significant pain increase if a dose is missed. The patient has undergone two significant foot surgeries, involving bone reconstruction and hardware replacement. He had been using topical capsaicin patches, which he found mildly helpful, and is considering their reapplication pending insurance approval. The patient has stage 3 chronic kidney disease, which led to the discontinuation of a diuretic due to worsening kidney function. 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 Pain Description - Onset and Timing: Pain is intermittent, occurring weekly. - Quality and Character: Described as severe, like being stabbed with a knife. - Primary Location: Feet, with numbness extending to knees and hands. - Exacerbating Factors: Missing a dose of pregabalin increases pain. - Relieving Factors: Consistent use of pregabalin and topical capsaicin patches. Physical Exam - Appears afebrile. - Alert and oriented. - Mood and affect appropriate. - Follows and participates in conversation appropriately. - Respiratory effort is unlabored. - Able to transition from sit to stand unassisted. - Ambulates with bilaterally normal heel strike and toe off. - Able to stand and walk on toes and heels. Pain Management - Affect: Pain impacts daily activities, described as severe and stabbing. - Analgesia: Managed with pregabalin (Lyrica), effective when taken consistently. - Adverse Effects: None reported from pregabalin. - Activities of Daily Living: Pain is intermittent but severe, affecting daily life. - Aberrant Drug Related Behaviors: No aberrant behaviors reported. [facility] Medical History Ascites Chronic kidney disease GERD (gastroesophageal reflux disease) Macrocytic anemia Chronic diabetic ulcer of right foot determined by examination Anemia Osteomyelitis Hearing difficulty Neuropathy Cataracts, bilateral Bunion Heart attack CAD (coronary artery disease) High cholesterol Diabetes Hypertension Surgical History History of esophagogastroduodenoscopy (EGD) H/O colonoscopy Hx of heart artery stent Hx of cystoscopy Hx of endoscopy History of bunionectomy of right great toe H/O rotator cuff surgery H/O heart bypass surgery Family History Sister HTN (hypertension) Sister HTN (hypertension) Father Heart disease Heart attack Mother Kidney failure Social History Household Members: Significant Other Housing: Condominium Are you a primary medical care administrator to a significant other at home: No Do you presently have visiting nurse or other home services: No Alcohol intake: current Alcohol intake frequency: former alcohol drinker Alcohol type: beer Patient Tobacco Use Status: Former Tobacco user Tobacco use type: Cigarette Cigarette Packs Per Day: 1 Cigarettes Per Day: 20 Years Smoked: 15 e-Cigarette/Vaping Use: Never Used Substance Use Type: Marijuana service: No Current occupational status: unemployed Cognitive needs: No Hearing needs: Yes Vision needs: No Assessment & Plan Assessment & Plan (1) Painful diabetic neuropathy: Code(s): E11.40 - Type 2 diabetes mellitus with diabetic neuropathy, unspecified Category: Medical Plan Plan - Continue pregabalin Lyrica) for neuropathic pain management. - Plan for repeat application of 8% topical capsaicin patch pending insurance approval. - Discuss swelling and kidney function with tree fruit and nut crops farmer during next visit. Patient was informed and verbally consented to the use of an ambient scribe for clinic note documentation during this visit. Discussion Notes I discussed with the patient the management of his chronic pain and peripheral diabetic neuropathy, emphasizing the importance of consistent medication use. We reviewed the potential benefits of repeating the topical capsaicin patch appli cation, pending insurance approval. I advised him to consult with his tree fruit and nut crops farmer regarding the swelling and kidney function. Patient Instructions - Continue taking pregabalin (Lyrica) as prescribed. - Follow up with tree fruit and nut crops farmer regarding kidney function and swelling. - Await notification for the next capsaicin patch application appointment. Medications: Refilled pregabalin 150 mg PO TID 90 caps 2RF pain 30 days E11.40 - Type 2 diabetes mellitus with diabetic neuropathy, unspecified, G89.4 - Chronic pain syndrome Coding Level of Care Code Est Pt Level 3 (10560) Diagnoses Painful diabetic neuropathy E11.40
== END 2025-02-15 10:46 | disposition home or self-care (01) ==
LOC: HO.PMC 10:04
PROVIDERS: PCP Internal Medicine; Visit Provider Internal Medicine
DX: E11.40 Type 2 diabetes mellitus with diabetic neuropathy, unspecified (principal)
CPT/HCPCS: 99213

== ENCOUNTER → 2025-02-15 10:04 | Outpatient (BNVA) | payer MEDICARE, OTHER, SELFPAY | PROVIDERS: PCP Internal Medicine; Visit Provider Internal Medicine | DX: E11.40 Type 2 diabetes mellitus with diabetic neuropathy, unspecified (principal); G89.4 Chronic pain syndrome | CPT/HCPCS: 99212 ==

== ENCOUNTER 2025-03-14 08:26 | Outpatient (AMB) | payer MEDICARE, OTHER, SELFPAY ==
--- NOTE | 2025-03-14 08:30 | A.OFFVIS_ITS ---
Vital Signs 03/14/25 08:31 Height 5 ft 11 in Weight 162 lb BMI 22.6 BP 182/88 H Blood Pressure Location Lt brachial Position Sitting Pulse 57 Pulse Oximetry (%) 96 Oxygen Delivery Method Room Air Intake Visit Reasons: Cirrhosis & Calcific pancreatitis Intake Note: Patient follow up for Cirrhosis & Calcific pancreatitis. Patient cc: abdominal pain with bloating on and off, and diahrrea come and go. Denies any other GI issues. Eligibility Services Representative Required: No Accompanied by: Self / Same As Patient Allergies codeine Allergy (Severe, Verified 05/23/25 12:32) SOB, diaphoretic Medication List - Last Reconciled 03/14/25 by Elisha Estevez MD aspirin 81 mg PO BEDTIME atorvastatin 20 mg PO DAILY 90 days blood-glucose meter As directed insulin aspart U-100 (Novolog FlexPen U-100 Insulin aspart) 6 - 9 sliding scale doses subcut BID insulin glargine (Lantus Solostar U-100 Insulin) 17 units subcut QAM lancets As directed oxwwdl-ydikalst-qwbryew 24,000-76,000 -120,000 unit (Creon) 2 caps PO TID 90 days multivitamin 1 tab PO DAILY pen needle, diabetic B.i.d. pregabalin 150 mg PO TID 30 days thiamine mononitrate (vit B1) 100 mg PO DAILY 90 days HPI HPI Cirrhosis & Calcific pancreatitis: Details: GI clinic visit for this 69 YM? with CHF, CAD, IDDM, htn, kidney stones, CKD, seen for FU of liver disease, chronic calcific pancreatitis and colon cancer screening. Followed by Dr Centeno at [facility].? Saw another GI physician in 2019 at [facility] who has retired also. Renal:? Dr Chan Pt was hospitalized at [facility] 05/29/21 to 06/10/21 with cirrhosis, ascites, SBP,? sepsis, anemia, nontraumatic psoas hematoma, Malnutrition, anasarca, pancreatic insufficiency, thrombocytopenia, coagulopathy, alcohol use disorder, coronary artery disease and confusion associated with infection.? Hospital course was complicated by type 2 hepatorenal disease which was treated with midodrine, octreotide, albumin infusions Creatinine improved to 1.4 and octreotide was discontinued. Discharge summary from hospitalization was reviewed in scanned into the patient's medical record. TODAY'S VISIT: Patient cc: Patient cc: abdominal pain with bloating on and off, and diahrrea come and go. Diarrhea has improved after he increased the dose of Creon - denies nocturnal diarrhea Notes increased diarrhea when he takes fatty foods. Improved control of blood sugars. Has not noted any problems with acid reflux. Sometimes its hard to swallow. Has bad teeth and not able to chew well Renal function is worsening (Stage 4) Spironolactone was discontinued by Nephrology and notes increase leg edema Denies an increase in abd distension PAST VISIT: Abd US results reviewed Has diarrhea at night time and his to get up to use the rest room - atleast 2-3 times a day. He was on antibiotics after foot surgery and diarrhea was worse. Diarrhea cleared up within a week of stopping antibiotics. Seen by Endocrinology at [facility] [place] and they may change his insulin on his FU visit. Had surgery in January on his right foot and Mar on the left foot. Treated with antibiotics prior to surgery on the left foot. Antibiotics were stopped 2 weeks ago and diarrhea is getting better. Has an accidents when he wakes up in the am. Bms are associated with urgency - 3 - 5 loose non-bloody BMs a day Pt states he had lab and stool tests at [facility] Swallowing is good. Noted a slight sore throat for a few days after EGD Denies any change in dysphagia Biopsy results reviewed Patient cc: swallowing problems, and between diarrhea and constipation. [facility] blister on his legs. Accompanied by his GF Has wounds in the feet. Had a vitrectomy recently Appetite is good and he has been gaining weight Has diarrhea alternating with constipation Intermittent dysphagia associated with intake of solids - with every meal for the past 6 months, Denies heartburn Has a good appetite and wt gain of 40 lbs over the past year. Continues to have a abd cramps with a lot of gas and more bouts of diarrhea. Unable to go for a few days and then has diarrhea. Takes peptobismol when he has diarrhea. Can be on the toilet for 1/2 an hour. Has oatmeal for breakfast, fruit or muffin for lunch. Had EUS at [facility] [place] - report was requested Colonoscopy was attempted and was unsuccessful due to poor prep. Pt reports bouts of constipation and diarrhea - mostly diarrhea. Denies black stool or rectal bleeding Denies abdominal pain and appetite is better Pregabilin is helping with the appetite. Notes mild lower extremity edema Takes Novolin 17 units in the am and uses regular insulin on a sliding scale the rest of the day. No ETOH in 15 to 16 months Pt was diagnosed with alcoholic cirrhosis a few yrs ago. DM diagnosed 5-6 yrs ago. Complains of worsening upper abdominal pain x 1 month. Pain is constant, 8/10 and radiates to the back. Denies change in pain with eating. Denies nausea, vomiting, dairrhea or constipation.. Takes Lactulose two times a day and has 2 -3 soft BMs daily. Stools are very light Appetite has been good and he is trying to eat three times a day or takes a protein drink. Started loosing wt for the past 6 months Baseline wt is 145 lbs. Weighed 126 lbs on discharge from Rehab and now weighs 110 lbs. Feels he is getting enough calories. Patient denies symptoms of heartburn, dysphagia.? Denies black stools or rectal bleeding. Patient denies loud snoring or sleep apnea - has difficulty sleeping due to ne uropathy Denies problems with anesthesia in the past. Denies being on chronic anticoagulation. Quit drinking 3 months ago Denies tobacco use Patient denies known family history of colon polyps, colon cancer or other GI malignancies. Worked as a [employer] person for [employer] Has 2 children in another state (estranged from the patient) PAST EGD/COLONOSCOPY:??2016 and a medium sized tubular adenoma was removed from the left colon.? Diverticulosis was detected.? Repeat colonoscopy was advised in 5 years.? IMAGING STUDIES:??09/2023 ABD US SHOWED: 1. The pancreas appears atrophic with calcifications throughout the pancreas. The pancreatic duct measures 1.2 cm in diameter. 2. The proximal common duct is normal in size. The distal common duct is mildly dilated measuring 0.8 cm in diameter. BARIUM SWALLOW SHOWED: 1. 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 Consistent pooling in the pi riform sinuses and vallecula. 2. Small amount of glottic/subglottic aspiration noted. 3. Mildly disorganized esophageal peristalsis. 4. Incomplete evaluation of the stomach, as detailed. Would definitely consider correlating with EGD. 06/01/[address] SCAN PERFORMED AT [facility]: Diffuse pancreatic calcifications with pancreatic atrophy.? Pancreatic duct dilated to 6 mm - likely due to pancreatic atrophy For least catheter in the urinary bladder Bilateral pleural effusion, ascites and diffuse anasarca.? L3-L4 compression fracture - age undetermined ENDOSCOPIC STUDIES: 11/25/23 EGD SHOWED: Esophagus: GE junction at 40 cms. Mildly tortuous esophagus with decreased contractions without stricture or ring. Esophageal balloon dilation of distal esophagus was performed with a 20 mm (60F) x 60 seconds Esophageal balloon dilation of proximal esophagus was performed with an 18 mm (54 F) x 60 seconds Stomach: Mosaic appearance of the stomach consistent with mild portal gastropathy. Moderate gastric antral erythema - biopsies were obtained from the antrum. Grade 2 flap valve and no gastric varices noted on retroflexed examination of the cardia. Impression and Post Procedure Diagnosis: Endoscopy Findings: ESOPHAGUS: Mildly tortuous esophagus. Esophageal balloon dilation was performed. STOMACH: Mosaic appearance of the stomach consistent with mild portal gastropathy. Moderate diffuse gastric erythema - biopsies were obtained from the antrum. Plan: Pt has a FU appointment on 12/01/[address] Estevez. BIOPSIES SHOWED: Stomach, antrum, biopsy: Antral-type mucosa with mild chronic inactive inflammation and focal intestinal metaplasia; negative for dysplasia; no Helicobacter organisms seen 03/25/23 COLONOSCOPY SHOWED: Two medium sized polyps removed Moderate diverticulosis seen in the entire colon Plan: Repeat Colonoscopy interval based on path results - in 2 years if polyps are adenomatous and to check polypectomy site at the hepatic flexure. 03/02/22 Pt had an EUS at [facility] [place] by Dr Mc which showed: Distended gallbladder, and normal liver panel time a with normal-sized intrahepatic ducts and mid CBD. Dilated pancreatic duct in head, smoothly transitioning to midbody. No stones noted within the pancreatic duct. Atrophic pancreatic duct with calcifications within the side branches, no discrete masses found in the pancreatic parenchyma. Multiple tortuous blood vessels noted in the lesser sac region close to the splenic vein. Patient was advised to take frequent small meals and continue Creon and refrain from EtOH use. Of note colonoscopy was attempted after EUS in terminated due to poor prep. PAST GI HISTORY BY REVIEW OF MEDICAL RECORDS: 12/14/20 pt was seen by Dr. Silvestre for anemia: 64 years old male with PMH of CAD post CABG, diabetes on insulin, HLD, neuropathy, alcohol abuse who I am seeing for assessment for anemia,He actually presents with worsening left big toe ulcer with increased warmth, swelling, erythema and tenderness around the area with drainage. He does have peripheral neuropathy at baseline as well. part of work up revealed anemia He denies hematuria, no melena, or rectal bleeding. He has no GERd, dysphagia, weight loss or fevers. he said he had EGD and colonoscopy mayb 5-6 yrs ago, results unknown Imaging suggestive of osteomyelitis. 1/ Macrocytic anemia, maybe due to diet, or chronic anemia from osteomyelitis or bone marrow disease, no overt GI blood loss PLAN: 1/ priority right now is treatment of the osteomyelitis, would defer EGD and colonoscopy to either early outpatient or after few days of ABX therapy. Discussed with primary team. Meantime PPI e.g pantoprazole 40 mg OD and fluid/vol resuscitate, if clinical status changes and he has overt GI bleeding then can change plan accordingly [facility] Medical History Ascites Chronic kidney disease GERD (gastroesophageal reflux disease) Macrocytic anemia Chronic diabetic ulcer of right foot determined by examination Anemia Osteomyelitis Hearing difficulty Neuropathy Cataracts, bilateral Bunion Heart attack CAD (coronary artery disease) High cholesterol Diabetes Hypertension Surgical History History of esophagogastroduodenoscopy (EGD) H/O colonoscopy Hx of heart artery stent Hx of cystoscopy Hx of endoscopy History of bunionectomy of right great toe H/O rotator cuff surgery H/O heart bypass surgery Family History Sister HTN (hypertension) Sister HTN (hypertension) Father Heart disease Heart attack Mother Kidney failure Social History (Updated 05/23/25 @ 12:33 by Carolyn Layne RN) Household Members: Significant Other Housing: [facility] Are you a primary adult day care worker to a significant other at home: No Do you presently have visiting nurse or other home services: No Alcohol intake: current Alcohol intake frequency: former alcohol drinker Alcohol type: beer Patient Tobacco Use Status: Former Tobacco user Tobacco use type: Cigarette Years Smoked: 15 e-Cigarette/Vaping Use: Never Used Substance Use Type: Marijuana service: No Current occupational status: unemployed Cognitive needs: No Hearing needs: Yes Vision needs: No Review of Systems Const All systems reviewed & are unremarkable except as noted in HPI and below Physical Exam Vital Signs: Last Vital Signs Pulse 57 03/14/25 08:31 BP 182/88 H 03/14/25 08:31 Pulse Ox 96 03/14/25 08:31 Oxygen Delivery Method Room Air 03/14/25 08:31 BMI result Body Mass Index 22.6 Const General: healthy appearing and no acute distress Nutritional Appearance: average body habitus Orientation/consciousness: patient oriented x3 Limitations: no limitations HEENT Head: Yes normal to inspection Ears: hearing grossly normal bilaterally Eyes Sclerae: sclerae normal Pupils: Equal, round and reactive pupils present Neck Neck: Yes normal visual inspection Chest Chest palpation & inspection: normal inspection of the chest Resp Effort & Inspection: normal respiratory effort Auscultation: clear to auscultation bilaterally Cardio Palpation: normal PMI Rate: regular rate Rhythm: regular rhythm Heart sounds: S1 normal heart sound present, S2 normal heart sound present and no murmurs GI Palpation (GI): Soft to palpation, nontender and No hepatosplenomegaly present Auscultation: normal bowel sounds Rectal Exam - Male: Yes deferred Skin General skin exam: no rashes or lesions noted Neuro General: patient oriented x3, gait normal and moves all extremities Cranial nerves: Yes Equal, round and reactive pupils present Psych Appearance: grossly normal Mental Status: mental status grossly normal Assessment & Plan Assessment & Plan (1) Chronic alcoholic pancreatitis: Code(s): K86.0 - Alcohol-induced chronic pancreatitis Category: Medical (2) Alcoholic cirrhosis of liver with ascites: Code(s): K70.31 - Alcoholic cirrhosis of liver with ascites Category: Medical (3) Abnormal MRI of abdomen: Code(s): R93.5 - Abnormal findings on diagnostic imaging of other abdominal regions, including retroperitoneum Category: Medical (4) Dysphagia, pharyngoesophageal phase: Code(s): R13.14 - Dysphagia, pharyngoesophageal phase Category: Medical (5) Cricopharyngeal achalasia: Code(s): K22.0 - Achalasia of cardia Category: Medical (6) Diarrhea: Code(s): R19.7 - Diarrhea, unspecified Category: Medical Plan 69 YM with poorly controlled DM complicated by neuropathy and nephropathy, cardiomyopathy, ESLD, chronic calcific pancreatitis followed in GI for weight loss despite good appetite and adequate p.o. intake. Patient has decompensated cirrhosis complicated by ascites and hepatic encephalopathy - had mild ascites on physical exam. Patient has a history of acute on chronic pancreatitis requiring hospitalization in past. Pt's weight loss is likely a combination of uncontrolled DM and malabsorption due to chronic calcific pancreatitis. Pt is also at increased risk for Pancreatic Cancer (due to chronic pancreatitis) and HCC. I will check lab and stool tests for malabsorption.? Patient was advised to start pancreatic enzymes with meals and monitor his weight. He needs better control of his diabetes - he would benefit from referral to Endocrinology. 03/02/22 Pt had an EUS at [facility] [place] by Dr Mc which showed: Distended gallbladder, and normal liver panel time a with normal-sized intrahepatic ducts and mid CBD. Dilated pancreatic duct in head, smoothly transitioning to normal size in midbody. No stones noted within the pancreatic duct. Atrophic pancreatic duct with calcifications within the side branches, no discrete masses found in the pancreatic parenchyma. Multiple tortuous blood vessels noted in the lesser sac region close to the splenic vein. Patient was advised to take frequent small meals and continue Creon and refrain from EtOH use. Of note colonoscopy was attempted after EUS and terminated due to poor prep. 03/25/2023 colonoscopy was performed in findings as noted above 05/26/23 Has diarrhea alternating with constipation Intermittent dysphagia associated with intake of solids - with every meal for the past 6 months, Has a good appetite and wt gain of 40 lbs over the past year. Patient advised to schedule a barium swallow for evaluation of dysphagia. He is due for an abdominal ultrasound in spring for follow-up of cirrhosis MELD score is 12 11/24/23 Pt complains of dysphagia to solids for the past 6 months Barium swallow showed moderate to severe cricopharyngeal achalasia and incomplete evaluation of the stomach Pt advised further evaluation with EGD with esophageal balloon dilation - scheduled on 11/25/23. 12/01/23 Noted a slight sore throat for a few days after EGD Denies any change in dysphagia Biopsy results reviewed - gastric metaplasia and advised repeat EGD in 3 years. Pt was offered referreal to ENT for cricopharyngeal myotomy versus Botox injection. Patient would prefer to monitor his symptoms for now He was advised to contact my office if he noted worsening dysphagia symptoms 09/13/24 Advised to increase Creon to 2 pills with every meal to see if diarrhea improves 03/14/25 Diarrhea has improved after he increased the dose of Creon - denies nocturnal diarrhea Notes increased diarrhea when he takes fatty foods. Spironolactone was discontinued by Nephrology and notes increase leg edema Denies an increase in abd distension Patient was advised to schedule a colonoscopy for follow-up of colon polyps. Abd US for HCC surveillance. FU in 4 months - scheduled 07/11/2025 ADDENDUM: 05/10/25 ABD US SHOWED: The appearance of the liver suggests fatty infiltration. There is no intrahepatic bile duct dilatation. The common duct is 3.5 mm in diameter. The gallbladder is normal. There is no sonographic Morales sign. The main portal vein is antegrade. No ascites. IMPRESSION: 1. Hepatic steatosis. Orders: Orders Hepatitis B Profile 03/14/25 K70.31 - Alcoholic cirrhosis of liver with ascites Hepatitis A IgG 03/14/25 K70.31 - Alcoholic cirrhosis of liver with ascites Hepatitis C Antibody 03/14/25 K70.31 - Alcoholic cirrhosis of liver with ascites US abdomen limited 03/14/25 K70.31 - Alcoholic cirrhosis of liver with ascites Carbohydrate Antigen 19-9 03/14/25 K86.0 - Alcohol-induced chronic pancreatitis Carcinoembryonic Antigen 03/14/25 K86.0 - Alcohol-induced chronic pancreatitis Coding Level of Care Code Est Pt Level 4 (45376) Diagnoses Chronic alcoholic pancreatitis K86.0 Alcoholic cirrhosis of liver with ascites K70.31 Abnormal MRI of abdomen R93.5 Dysphagia, pharyngoesophageal phase R13.14 Cricopharyngeal achalasia K22.0 Diarrhea R19.7 Time Spent (min) 23
[2025-03-14 08:31] VITALS: BP 182/88; PULSE 57; O2SAT 96; BMI 22.6
== END 2025-03-14 09:15 | disposition home or self-care (01) ==
LOC: HO.HGI 08:27
PROVIDERS: PCP Internal Medicine; Visit Provider Internal Medicine Gastroenterology
DX: K86.0 Alcohol-induced chronic pancreatitis (principal); K70.31 Alcoholic cirrhosis of liver with ascites; R93.5 Abnormal findings on diagnostic imaging of other abdominal regions, including retroperitoneum; R13.14 Dysphagia, pharyngoesophageal phase; K22.0 Achalasia of cardia; R19.7 Diarrhea, unspecified
CPT/HCPCS: 99214

== ENCOUNTER → 2025-03-14 08:26 | Outpatient (BNVA) | payer MEDICARE, OTHER, SELFPAY | PROVIDERS: PCP Internal Medicine; Visit Provider Internal Medicine Gastroenterology | DX: K86.0 Alcohol-induced chronic pancreatitis (principal); K70.31 Alcoholic cirrhosis of liver with ascites; R93.5 Abnormal findings on diagnostic imaging of other abdominal regions, including retroperitoneum; R13.14 Dysphagia, pharyngoesophageal phase; K22.0 Achalasia of cardia; R19.7 Diarrhea, unspecified | CPT/HCPCS: 99212 ==

== ENCOUNTER 2025-05-07 08:28 | Outpatient (AMB) | payer MEDICARE, OTHER, SELFPAY ==
--- OUTSIDE RECORDS SUMMARY | 2024-07-13 04:45 | XMS_ITS ---
Author Organization [facility] Address [address] [place] [address] Care Team Providers Care Rv Technician Name Role Phone Regulo CONKLIN, Rufino Primary Care Provider Ni Almanza [phone] REASON FOR VISIT Transfer to Different Provider Encounters Encounter Location Date Provider Diagnosis [address] [address] 07/13/2024 Ni Leone Plan Of Treatment Next Appt Details Provider Name:Ni duncan, 06/06/2025 09:15:00 AM, [address] [place], [address], Progress Notes * Quentin LARA SDOB:[birth year] (69 yo M)Acc No.[id number]:07/13/2024 Progress Note Patient: Molly DIORQuentin Magno Provider: Hari Leone DPM :1955 A ge:68 Y S ex:Male Date:07/13/2024 Address:[address] [id number] Pcp:Rufino Rajput MD Subjective: * Chief Complaints: [...] 1 09/13/2023 Generated for Vika nicholson/Carrie/Ashley on: 08:51 AM EDT
--- NOTE | 2025-05-07 08:32 | A.OFFVIS_ITS ---
Intake Vital Signs 05/07/25 08:34 Height 5 ft 11 in Weight 161 lb BMI 22.5 BP 160/78 H Blood Pressure Location Rt brachial Position Sitting Pulse 62 Pulse Source Pulse Oximeter Pulse Oximetry (%) 97 Intake Visit Reasons: [facility] G0439 forms mailed Allergies codeine Allergy (Unknown, Verified 05/07/25 08:34) Unknown Medication List - Last Reconciled 05/07/25 by Rufino Rajput MD aspirin 81 mg PO BEDTIME atorvastatin 20 mg PO DAILY 90 days blood-glucose meter As directed calcitriol 0.25 mcg PO DAILY insulin aspart U-100 (Novolog FlexPen U-100 Insulin aspart) 6 - 9 sliding scale doses subcut BID insulin glargine (Lantus Solostar U-100 Insulin) 17 units subcut QAM lancets As directed alkhnx-zxufcxxv-rskteuv (pork) 24,000-76,000 -120,000 unit (Creon) 2 caps PO TID 90 days multivitamin 1 tab PO DAILY nifedipine ER 30 mg PO DAILY pen needle, diabetic B.i.d. pregabalin 150 mg PO TID 30 days thiamine HCl (vitamin B1) 100 mg PO DAILY Do you need a note to return to daycare/school/sports/work: No HPI [facility] G0439 forms mailed HPI Details Patient came in today for Medicare wellness visit and found to have an elevated blood pressure Patient said that he was rushing coming here Bp rechecked after 15 minutes 170/88, he has no headache or blurring of vision no chest pain or shortness a breath Patient was instructed to double the dose of Nifidipine to 60 mg from tonight f.u tomorrow HPI Comments History of Present Illness Details AWV Medical/social history reviewed Past medical history reviewed [place] of care / care team list updated Surgical/ hospitalization history reviewed Current medications including OTC and supplements reviewed Family history reviewed Tobacco controlled form updated Alcohol use form updated Illicit drug use in social history reviewed Current diagnosis of depression ?screening updated Appropriate PHQ 2/PHQ-9 completed . Vital signs reviewed Alcohol tobacco drug use reviewed and discussed . MMSE completed . ? Fall risk: ?Assessed Fall history: ?None Have you had any falls with injury in the past year?? No Have you had 2 or more falls in the past year?? No Fall risk assessment completed Home safety discussed with the patient Functional ability assessed and discussed and documented Activities of daily living reviewed and appropriate actions taken . HRA filled out by the patient and reviewed by provider and scanned . Appropriate written screening schedule established . Any health advise needed provided . Advance care planning discussed with the patient , necessary paperwork filled Examination IPPE/AWE: Balance intact Romberg intact Tandem walk failed walk-in turn intact rise from sit to stand intact . ?Hearing ?whisper test failed . Medication list reviewed, patient is stable on medications All other providers patient is seeing discussed and noted . [facility] Medical History Ascites Chronic kidney disease GERD (gastroesophageal reflux disease) Macrocytic anemia Chronic diabetic ulcer of right foot determined by examination Anemia Osteomyelitis Hearing difficulty Neuropathy Cataracts, bilateral Bunion Heart attack CAD (coronary artery disease) High cholesterol Diabetes Hypertension Surgical History History of esophagogastroduodenoscopy (EGD) H/O colonoscopy Hx of heart artery stent Hx of cystoscopy Hx of endoscopy History of bunionectomy of right great toe H/O rotator cuff surgery H/O heart bypass surgery Family History Sister HTN (hypertension) Sister HTN (hypertension) Father Heart disease Heart attack Mother Kidney failure Social History Household Members: Significant Other [facility]: [facility] Are you a primary childcare director to a significant other at home: No Do you presently have visiting nurse or other home services: No Alcohol intake: current Alcohol intake frequency: former alcohol drinker Alcohol type: beer Patient Tobacco Use Status: Former Tobacco user Tobacco use type: Cigarette Cigarette Packs Per Day: 1 Cigarettes Per Day: 20 Years Smoked: 15 e-Cigarette/Vaping Use: Never Used Substance Use Type: Marijuana service: No Current occupational status: unemployed Cognitive needs: No Hearing needs: Yes Vision needs: No Questionnaire Medicare Wellness Checkup [age] What gender do you identify with?: male During the past 4 weeks, how much have you been bothered by emotional problems such as feeling anxious, depressed, irritable, sad or downhearted, and blue?: slightly During the past 4 weeks, has your physical & emotional health limited your social activities with family, friends, neighbors, or groups?: moderately During the past 4 weeks, how much bodily pain have you generally had?: mild pain During the past 4 weeks, was someone available to help you if you needed & wanted help?: yes, quite a bit During the past 4 weeks, what was the hardest physical activity you could do for at least 2 minutes?: heavy Can you get to places out of walking distance without help? (For eg., can you travel alone on buses, taxis or drive your car?): Yes Can you go shopping for groceries or clothes without someone's help?: Yes Can you prepare your own meals?: Yes Can you do your housework without help?: Yes Because of any health problems, do you need the help of another person with your personal care needs such as eating, bathing, dressing or getting around the house?: No Can you handle your own money without help?: Yes During the past 4 weeks, how would you rate your health in general?: fair During the past 4 weeks how have things been going for you?: good & bad parts about equal Are you having difficulties driving your car?: sometimes Do you always fasten your seat belt when you are in a car?: yes, usually During past 4 weeks, have you been bothered by the following: never: Trouble eating well? and Problems using the telephone?, sometimes: Falling or dizzy when standing up and Tiredness or fatigue? and often: Teeth or denture problems? Have you fallen 2 or more times in the past year?: No Are you afraid of falling?: Yes Are you a smoker?: no During the past 4 weeks, how many drinks of wine, beer, or other alcoholic beverages did you have?: no alcohol at all Do you exercise for about 20 minutes 3 or more times a week?: no, I usually do not exercise this much Have you been given information to help with the following?: yes: Hazards in your house that might hurt you? and yes: Keeping track of your medications? How often do you have trouble taking medicines the way you have been told to take them?: I always take medicine as prescribed How confident are you that you can control & manage most of your health problems?: somewhat confident What is your race?: White Mini Mental State Exam (MMSE) Orientation What is the (year) (season) (date) (day) (month)?: year, season, date, day and month Where are we (state) (county) (town or city) (hospital) (floor)?: state, county, town or city, hospital/clinic and floor Score Score: 10 Activity of Daily Living Bathing - sponge bath, tub bath or shower: receives no assistance (gets in/out by self, if usual bathing means Dressing - getting clothes from closets & drawers, including inner/outer garments & fasteners.: gets clothes & gets completely dressed without help Toileting - going to the 'toilet room' for urine/bowel elimination & cleaning self/arranging clothes: goes to toilet room, cleans self, arranges clothes wit hout help Transfer: moves in & out of bed and chair without help (may use support object) Continence: controls urination/bowel movements completely by self Feeding: feeds self without help Total Score: 0 Information obtained from: patient Using telephone: independent Traveling: needs assistance Shopping: independent Preparing meals: independent Housework: independent Taking medicine: independent Managing money: independent PHQ-9 Over the last 2 weeks, how often have you been bothered by any of the following problems? 1. Little interest or pleasure in doing things: several days 2. Feeling down, depressed, or hopeless: several days 3. Trouble falling or staying asleep, or sleeping too much: several days 4. Feeling tired or having little energy: several days 5. Poor appetite or overeating: several days 6. Feeling bad about yourself - or that you are a failure or have let yourself or your family down: several days 7. Trouble concentrating on things, such as reading the newspaper or watching television: several days 8. Moving or speaking so slowly that other people could have noticed. Or the opposite - being so fidgety or restless that you have been moving around a lot more than usual: not at all 9. Thoughts that you would be better off or of hurting yourself in some way: not at all Total score: 7 Depression Screening Interpretation: Negative Depression Screening Done: Yes 10562 - PHQ-9 Billing: Yes Source: Developed by Drs. Ted Hong, Mera Davenport, Jayro Elizabeth and colleagues, with an educational steffany from [employer]. Review of Systems Const Denies chills and Denies fever(s) ENT Denies epistaxis and Denies nasal discharge Card Denies chest pain Resp Denies chest congestion, Denies cough and Denies hemoptysis GI Denies diarrhea and Denies nausea Skin/Breast Denies rash Neuro Reports no additional complaints Psych Reports no additional complaints Endo Reports no additional complaints Physical Exam Vital Signs: Last Vital Signs Pulse 62 05/07/25 08:34 BP 160/78 H 05/07/25 08:34 Pulse Ox 97 05/07/25 08:34 BMI result Body Mass Index 22.5 Const General: cooperative, comfortable and no acute distress Orientation/consciousness: patient oriented x3 HEENT Head: Yes normocephalic Eyes General: appearance normal, both eyes and all related structures Neck Other: Supple Neck: Yes supple Resp Effort & Inspection: normal respiratory effort, no cough and no stridor Cardio Rhythm: regular rhythm Heart sounds: S1 normal heart sound present and S2 normal heart sound present Skin General skin exam: turgor normal Neuro Other: Motor sensory intact General: patient oriented x3, tone normal and moves all extremities Extrem Other: No lower extremity swelling. Right lower extremity: no edema Left lower extremity: no edema Psych Other: Normal effect, speech clear Assessment & Plan Assessment & Plan (1) Medicare annual wellness visit, subsequent: Code(s): Z00.00 - Encounter for general adult medical examination without abnormal find ings (2) Uncontrolled hypertension: Code(s): I10 - Essential (primary) hypertension Plan Patient came in today for Medicare wellness visit and found to have an elevated blood pressure Patient said that he was rushing coming here Bp rechecked after 15 minutes 170/88, he has no headache or blurring of vision no chest pain or shortness a breath Patient was instructed to double the dose of Nifidipine to 60 mg from tonight f.u tomorrow Quality Reporting (2019) Depression/Bipolar (159/160/161/177) PHQ-9: Total score: 7 Coding Level of Care Code Medicare Subsequent (G0439) Est Pt Level 3 (18313) Diagnoses Medicare annual wellness visit, subsequent Z00.00 Uncontrolled hypertension I10 CPT Codes Advance Care Planning - Advance Care Planning discussion: On file, no changes ([id number]) Advance Care Planning - Time spent: 1-15 minutes, on File ([id number]) Additional Codes PHQ-9 - 50993 - PHQ-9 Billing: Yes ([id number]) Advance Care Planning Advance Care Planning discussion: On file, no changes Forms completed: Health Care Proxy and MOLST Time spent: 1-15 minutes, on File
[2025-05-07 08:34] VITALS: BP 160/78; PULSE 62; O2SAT 97; BMI 22.5
--- OUTSIDE RECORDS SUMMARY | 2025-05-07 08:50 | XMS_ITS | Encounter Summary ---
Author Organization [facility] Address [address] [place] [address] Phone Care Team Providers Care Paper Handler Name Role Phone Rufino Rajput MD Primary Care Provider [phone] Reason for Visit * Reason Comments Med Refill Encounter Details Date Type Department Care Team (Late Contact Info) Description 06/06/2021 Refill [facility] [address] [place] [phone] Olayinka Saldana MD Social History Tobacco Use [...] Department Care Team (Late Contact Info) Description 05/30/2025 2:15 PM EST Clinical Support [facility] [address] [facility] [address] [place] [address] 06/12/2025 8:30 AM EST Office Visit [facility] [address] [place] [phone] Karen Plascencia ARNP [address] [phone] documented as of this encounter Visit Diagnoses Not on filedocumented in this encounter Care Teams Paper Handler Relationship Specialty Start Date End Date Rufino Rajput MD [address] [place] [id number] PCP - General Internal Medicine 04/06/21 documented as of this encounter
--- OUTSIDE RECORDS SUMMARY | 2025-05-07 08:50 | XMS_ITS | Clinical Summary ---
Author Organization [facility] Address [address] [place] [address] Care Team Providers Care Reel Stripper Name Role Phone Rufino Rajput MD Primary Care Provider [phone] Allergies Active Allergy Reactions Criticality Noted Date [...] total) by mouth daily. 0 Active pancrelipase, Roz-Zsjl-Xgzz, (CREON) 60416-[address] units CPEP Take 1 capsule (24,000 units [...] 12/28/2020 07/24/2013, 04/26/2008 COVID-19 Vaccine ( season) 2025 04/18/2021, 10/09/2020, 09/18/2020 Influenza Vaccine (#1) 2025 [...] age to complete this topic Care Teams Reel Stripper Relationship Specialty Start Date End Date Rufino Rajput MD [address] [facility] [place] [phone] PCP - General Internal Medicine 01/13/24
--- OUTSIDE RECORDS SUMMARY | 2025-05-07 08:51 | XMS_ITS | Clinical Summary ---
Author Organization [facility] Address [address] [place] [address] Phone Care Team Providers Care Creative Art Director Name Role Phone Rufino Rajput MD Primary Care Provider [phone] Allergies Active Allergy Reactions Criticality Noted Date Comments Codeine 07/21/2020 Medications calcitrioL (ROCALTROL) 0.25 mcg capsule Take 1 Capsule by mouth every other day. Active insulin aspart (NovoLOG) 100 unit/mL injection Inject as directed. Sliding scale Active insulin detemir (LEVEMIR) 100 unit/mL injection Inject 17 Units into the skin at bedtime. Active pancrelipase, Yha-Svft-Yoxh, (CREON) 24,000-76,000 -120,000 unit capsule Take 2 capsules (48,000 Units total) by mouth 3 (three) times a day with meals. Active aspirin 81 mg EC tablet Take [...] by mouth once daily 90 tablet 3 5 Active nitroglycerin (NITROSTAT) 0.4 mg SL tablet DISSOLVE ONE TABLET UNDER THE TONGUE EVERY 5 MINUTES NEEDED FOR CHEST PAIN. DO NOT EXCEED A TOTAL OF 3 DOSES IN 15 MINUTES 25 tablet 5 Active Active Problems Problem Noted Date Diagnosed Date Coronary artery disease invo lving naknek coronary artery of naknek heart without angina pectoris 03/01/2025 Assessment & Plan (03/01/2025 10:00 AM EDT): Patient denies anginal symptoms. Stress test January 2024 showed no major perfusion defects. No change to current medical therapy, continue aspirin and atorvastatin as prescribed. For any chest pain/discomfort, especially if associated with exertion, that lasts longer than 10-15 minutes and does not resolve with rest or sublingual nitroglycerin, patient has been encouraged to seek immediate medical attention by calling 911. HTN (hypertension) 03/01/2025 Assessment & Plan (03/01/2025 10:01 AM EDT): Blood pressure is well-controlled in the office today at 122/70 despite discontinuation of spironolactone. No change to current medical therapy. Dizziness 07/30/2024 Assessment & Plan (07/30/2024 1:04 [...] labs showed a persistent abnormal renal function. Assessment & Plan (03/01/2025 10:03 AM EDT): Patient has developed bilateral lower extremity edema from the knees down after discontinuing spironolactone due to worsening renal function. He has no other overt signs or symptoms of heart failure. Will update BNP and echocardiogram to reassess cardiac function and structures. I suggested avoiding salt, elevating legs when possible and using compression socks for now. Aneurysm of ascending aorta ([facility] V24) 2019 Overview (04/24/2024): 11/2019 aortic root 4.4 cm ascending aorta 4.2 cm Last Assessment & Plan: Repeat echo to reassess aneurysm size. Assessment & Plan (03/01/2025 9:59 AM EDT): The sinus of Valsalva measured 4.8 cm and ascending aorta measured 4.3 cm on most recent echocardiogram in February 2023. We will update echocardiogram to reassess aneurysm size. Will hold off on CTA given chronic kidney disease. CAD of autologous bypass graft 07/21/2020 Overview (04/24/2024): PCI of circumflex remotely and then had LAD PCI in 2011. 3 vessel CABG with DOUGLAS to LAD, SVG to RCA and radial to OM in 09/2014 for SOB with ostial LAD and moderate RCA stenosis repeat cardiac catheterization in 2018 due to new abnormal EKG and new onset of shortness of breath with patent grafts Last Assessment & Plan: He had atypical chest discomfort over past a few months. The last ischemia workup was from 2018. I would like to repeat stress test before scheduled surgery. Assessment & Plan (07/30/2024 1:04 PM EST): Stable. Stress test January 2024 showed no major perfusion defect. Will continue medical treatment. Will repeat lipid profile. Diabetes ([facility] V24, CMS/[facility] V28) 07/21/2020 Overview (04/24/2024): Last Assessment & Plan: Suggest him to call [place] office to get a new primary care [...] to check his LFTs. Assessment & Plan (03/01/2025 10:04 AM EDT): Last lipid panel reviewed and under excellent control with an LDL of 31, which is at goal of less than 70. Continue atorvastatin as prescribed. Assessment & Plan (07/30/2024 1:04 PM EST): Dose has been reduced due to the liver problem. Encounters Date Type Department Care Team Description 03/08/2025 10:00 AM EDT Ancillary Procedure [facility] - [address] [place] [address] Coronary artery disease involving naknek coronary artery of naknek heart without angina pectoris 03/01/2025 8:40 AM EDT Office Visit [facility] - [address] [place] [address] Emelina Haines, RAMAKRISHNA Coronary artery disease involving naknek coronary artery of naknek heart without angina pectoris (Primary Dx); Hyperlipidemia LDL goal <70; Primary hypertension; Lower extremity edema; Aneurysm of ascending aorta without rupture ([facility] V24) 02/05/2025 8:44 AM EDT - 02/05/2025 11:59 PM EDT Hospital Encounter [facility] Interventional Radiology [address] [place] [phone] Thrombocytopenia (CMS/[facility] V24); Anemia due to stage 3b chronic kidney disease (CMS/HCC V24, CMS/HCC V28) Discharge Disposition: Home or Self Care from Last 3 Months Immunizations Immunization Administration Dates Next Due Influenza Quadravalent, 0.5m [...] Sign Reading Time Taken Comments Blood Pressure 120/80 03/08/2025 10:41 AM EDT Pulse 60 03/01/2025 8:44 AM EDT Temperature 36.2 C (97.2 F) 02/05/2025 9:13 AM EDT Respiratory Rate 14 02/05/2025 11:14 AM EDT Oxygen Saturation 99% 03/01/2025 8:44 AM EDT Inhaled Oxygen Concentration - - Weight 73.9 kg (163 lb) 03/08/2025 10:41 AM EDT Height 180.3 cm (5' 11 ) 03/08/2025 10:41 AM EDT Body Mass Index 22.73 03/08/2025 10:41 AM EDT Plan of Treatment Upcoming Encounters Date Type Department Care Team (Late st Contact Info) Description 07/19/2025 9:30 AM EST Office Visit [facility] Hematology Oncology [address] [place] [phone] Radha Lambert PA [address] [place] [address] Health Maintenance Due Date Last Done Comments Colorectal Cancer Screening: Colonoscopy 1955 Diabetes: Annual Foot Exam 12/28/1965 Diabetes: Annual Retina Eye Exam 12/28/1965 Hepatitis A Vaccines (2 of 2 - Risk 2-dose series) 11/30/2021 06/02/2021 Falls Risk Assessment 06/27/2022 Social Influencers of Health Screening 06/27/2022 Medicare Annual Wellness Visit 03/30/2024 03/30/2023 Diabetes: Blood Sugar Control Test (HGBA1C) 07/12/2024 01/11/2024, 01/11/2024 Depression Screening 07/25/2024 Hepatitis B Vaccines (3 of 3 - Risk 3-dose series) 03/06/2025 01/09/2025, 06/01/2021 COVID-19 Vaccine (7 - Pfizer risk season) 2025 04/23/2024, 11/12/2022, 04/28/2022, Additional history exists Influenza Vaccine (#1) 2025 , 04/23/2024, 04/25/2023, Additional history exists Diabetes: Annual GFR (Glomerular Filtration Rate) 01/21/2026 01/21/2025, 07/30/2024, 07/16/2024, Additional history exists Hypertension/CHF/CAD Annual BMP Blood Test 01/21/2026 01/21/2025, 07/30/2024, 07/16/2024, Additional history exists Diabetes: Annual Urine Albumin-Creatinine Ratio (uACR) 03/05/2026 03/05/2025, 01/24/2025, 01/14/2025, Additional history exists DTaP,Tdap,and Td Vaccines (3 - Td or Tdap) 08/22/2028 08/22/2018, 04/26/2008 Cholesterol Screening (Lipid Panel) 07/30/2029 07/30/2024, 01/13/2023 Zoster Vaccines Completed 06/30/2022, 04/28/2022 RSV Immunization Adult Patients Completed 04/18/2023 Pneumococcal Vaccine: 50+ Years Completed 12/18/2023, 04/28/2022, 07/24/2013, Additional history exists Abdominal Aortic Aneurysm (AAA) Screen Completed 02/08/2025 Hepatitis C Screening Completed 03/05/2025, 025 HIB Vaccines Aged Out No longer eligi [...] Procedure Name Priority Date/Time Associated Diagnosis Comments TRANSTHORACIC ECHOCARDIOGRAM (TTE) COMPLETE Routine 03/08/2025 10:25 AM EDT Coronary artery disease involving naknek coronary artery of naknek heart without angina pectoris ECG 12-LEAD Routine 03/01/2025 10:08 AM EDT Coronary artery disease involving naknek coronary artery of naknek heart without angina pectoris B-TYPE NATRIURETIC PEPTIDE Routine 03/01/2025 9:47 AM EDT Lower extremity edema IR BX AND ASP BONE MARROW Routine [...] BLOOD Routine 02/05/2025 9: 02 AM EDT COMPREHENSIVE METABOLIC PANEL Routine 07/30/2024 9:57 AM EST Thrombocytopenia (CMS/HCC V24) LIPID PANEL WITH REFLEX TO DIRECT LDL Routine 07/30/2024 9:57 AM EST Chest pain due to myocardial ischemia, unspecified ischemic chest pain type HEMOGLOBIN A1C Routine 01/11/2024 HM URINE ALBUMIN CREATININE RATIO Routine 01/10/2024 from Last 3 Months or Most Recently Relevant to Health Maintenance Results * (ABNORMAL) TRANSTHORACIC ECHOCARDIOGRAM (TTE) COMPLETE (03/08/2025 10:25 AM EDT) Left Atrium Minor Alpine 6.0 cm CV PACS Left Atrium Major Alpine 6.0 cm CV PACS LA Area Sys (A2C) 28 cm2 CV PACS LA Area Sys (A4C) 25 cm2 CV PACS LA Volume (BP) 94 mL CV PACS RA Area 19.1 cm2 CV PACS RA 2D Volume 53 mL CV PACS AV Regurgitation PHT 455 ms CV PACS AR Max Velocity 3.9 m/s CV PACS AV Peak Gradient 62 mmHg CV PACS Aortic Sinus Valsalva 4.6 cm CV PACS Ascending Aorta 4.4 cm CV PACS IVC Proximal 1.8 cm CV PACS IVC Proximal 0.5 cm CV PACS IVSD 1.0 0.6 - 1.0 cm CV PACS LVIDD 4.9 4.2 - 5.8 cm CV PACS LVIDS 3.1 2.5 - 4.0 cm CV PACS LVOT Diameter 2.4 cm CV PACS LVOT Mean Michael 0.7 m/s CV PACS LVOT Mean Grad 2 mmHg CV PACS LVOT Peak VTI 26.9 cm CV PACS LVOT Peak Michael 1.1 m/s CV PACS LVOT Peak Gradient 5 mmHg CV PACS LVPWD 1.1(A) 0.6 - 1.0 cm CV PACS MV E' Tissue Velocity Lateral 7 cm/s CV PACS MV E' Tissue Velocity Septal 4 cm/s CV PACS LVOT Area 4.5 cm2 CV PACS LVOT Stroke Volume 122 mL CV PACS MR PISA Max Velocity 6.4 m/s CV PACS MR Peak Gradient 163 mmHg CV PACS E Wave Deceleration Time 261(A) 119 - 242 ms CV PACS MV Peak A Michael 0.61 m/s CV PACS MV Peak E Michael 0.78 m/s CV PACS PV Acceleration Time 127 ms CV PACS PV Acceleration Time 127 ms CV PACS RV Diastolic Basal Dimension 4.5(A) 2.5 - 4.1 cm CV PACS RV S' 12 cm/s CV PACS TAPSE 20 mm CV PACS TR Peak Velocity 1.90 m/s CV PACS TR Peak Gradient 14 mmHg CV PACS E/E' Ratio Septal 20 CV PACS E/E' Ratio Averaged 15 CV PACS Relative Wall Thickness ratio 0.45 CV PACS FS 37 % CV PACS LV Mass 2D 188 g CV PACS LVOT flow 317 mL/s CV PACS E/A Ratio 1.3 CV PACS E/E' Ratio Lateral 11 CV PACS BSA 1.92 m2 CV PACS LA Volume Index (BP) 49 mL/m2 CV PACS LVIDD Index 2.54 cm/m2 CV PACS LVIDS Index 1.61 cm/m2 CV PACS LV Mass Index 2D 97 50 - 102 g/m2 CV PACS LVOT Stroke Index 63 mL/m2 CV PACS RA 2D Volume Index 27 18 - 32 mL/m2 CV PACS Ascending Aorta Index 2.28 cm/m2 CV PACS Right Ventricular Peak Systolic Pressure 17 mmHg CV PACS Est. RA Pressure 3 mmHg CV PACS Anatomical Region Laterality Modality Ultrasound Narrative 03/08/2025 12:31 PM EDT Left ventricle cavity size is normal. There is mild posterior wall hypertrophy. Systolic function is normal with an ejection fraction of 60-65%. There are no regional LV wall motion abnormalities Left atrial dilatation Dilated sinus of valsalva 4.6 cm and ascending aorta 4.4 cm Compared to the prior study from 2022, there is no significant change Left Ventricle Left ventricle cavity size is normal. There is mild posterior wall hypertrophy. Systolic function is normal with an ejection fraction of 60-65%. There are no regional LV wall motion abnormalities. There is Grade I (mild) diastolic dysfunction. Right Ventricle Right ventricle cavity is dilated. Systolic function is normal. Left Atrium Left atrium cavity is severely dilated. Right Atrium Right atrium cavity is normal. IVC/SVC Inferior vena cava structure is normal. RA pressures is estimated to be 3 mmHg (IVC diameter <21 mm and decreases >50% during inspiration). Mitral Valve The leaflets are mildly thickened. 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 There is mild regurgitation with a posteriorly directed jet. There is no evidence of mitral valve stenosis. Tricuspid Valve Tricuspid valve structure is normal. There is mild regurgitation. There is no significant tricuspid valve stenosis. Aortic Valve The aortic valve is trileaflet. The leaflets are not thickened and exhibit normal excursion. There is mild regurgitation. There is no evidence of aortic valve stenosis. Pulmonic Valve The pulmonic valve was not well visualized. No significant pulmonic valve regurgitation. No significant pulmonary valve stenosis noted. Ascending Aorta The Sinus of Valsalva is dilated (4.6 cm). The ascending aorta is dilated (4.4 cm). Pericardium Pericardium appears normal. There is no pericardial effusion. Study Details Overall the study quality was adequate. Emelina Haines NP CV ECHO PROCEDURES Final Result * ECG 12 lead (03/01/2025 10:08 AM EDT) [facility] Ventricular Rate ECG 60 BPM GEMUSE Atrial Rate 60 BPM GEMUSE P-R Interval 184 ms GEMUSE QRS Duration 100 ms GEMUSE Q-T Interval 448 ms GEMUSE QTc 448 ms GEMUSE P Wave Alpine 70 degrees GEMUSE R Alpine 80 degrees GEMUSE T Alpine 67 degrees GEMUSE ECG Interpretation Normal sinus rhythm Normal ECG When compared with ECG of 30-JUL-2024 08:59, Nonspecific T wave abnormality no longer evident in Anterolateral leads Confirmed by Alicia BROWN, BUBBA ([id number]) on 03/28/2025 10:40:32 AM GEMUSE 03/01/2025 8:51 AM EDT 03/28/2025 10:40 AM EDT Emelian Haines NP ECG ORDERABLES Edited Result - Final GEMUSE * (ABNORMAL) B-type natriuretic peptide (03/01/2025 9:47 AM EDT) BNP 229(H) <=100 pcg/mL LAB CHEMISTRY METHOD 03/01/2025 11:25 AM EDT [facility] Blood Venous blood specimen / Unknown Venipuncture / Unknown 03/01/2025 9:47 AM EDT 03/01/2025 10:28 AM EDT us Emelina Haines [employer] LAB BLOOD ORDERABLES Final Resu lt [facility]) [facility] [address] [place] [address], [place] [phone] * IR Bx and Asp Bone Marrow [...] Signed Date: 02/06/2025 09:07 ET Workstation ID: [id number] Transcribed By: Self Edit Transcribed Date: 02/06/2025 [...] of fentanyl administered during the procedure. Scanner: [employer] [address] Dose reduction technique: AEC [...] of fentanyl administered during the procedure. Scanner: [employer] [address] Dose reduction technique: AEC [...] Signed Date: 02/06/2025 09:07 ET Workstation ID: [id number] Transcribed By: Self Edit Transcribed Date: 02/06/2025 09:06 ET Radha BOCANEGRA IMG IR PROCEDURES Final Resul t * Cytogentic Miscellaneous (02/05/2025 10:47 AM EDT) Scan Result See Scanned Result 02/14/2025 2:30 PM EDT EXTERNAL LAB (NON-INTERFAC ED) Bone Marrow Specimen from bone marrow obtained by aspiration / Unknown 02/05/2025 10:47 AM EDT 02/05/2025 11:18 AM EDT Radha BOCANEGRA LAB CYTOGENETICS ORDERABLES F inal Result EXTERNAL LAB (NON-INTERFACED) * Flow cytometry (02/05/2025 10:47 AM EDT) Flow Cytometry Interpretation Bone marrow, Flow cytometry: - No monotypic B cell population identified. - Most of the lymphocytes are CD3-positive T cells including CD4-positive and CD8-positive subsets without diagnostic phenotypic aberrancy. - There is no increase in the proportion of FA12-xhwbzcuu blasts (less than 1%). Note: The flow cytometric findings are not diagnostic of a B cell or T cell lymphoproliferative disorder. The proportion of RY82-gbbgegfe blasts is not increased. Although phenotypic maturation of granulocytes and monocyte appears generally telephone operator receptionist, please note that myeloid disorders cannot be reliably excluded by flow cytometry. Correlation with the morphologic findings in the accompanying bone marrow aspirate and biopsy specimen is recommended/ See separate report ([id number]) for details. SPECIMEN: Bone Marrow ([id number]) VIABILITY: 95.9 TOTAL CELL YIELD: 58.3 x106/mL [...] are 75.3% of total and show generally telephone operator receptionist immunophenotypic maturation. - Monocytic cells are 6.2% of total and show generally telephone operator receptionist immunophenotypic maturation. - CD45 dim cells are 2.7% of total. CD34+ Blasts are not increased (less than 1%). A small number of IK08-hnlescwz cells with expression of CD10, CD19 and CD38 and very low side light scatter, compatible with hematogones is noted. Antibodies (27 markers): CD2, CD3, CD4, CD5, CD7, CD8, CD10, CD11b, CD13, CD14, CD15, CD16, CD19, CD20, CD33, CD34, CD38, CD45, CD56, CD64, CD117, CD123, CD200, HLA-DR, [place], Lambda, TCR??. 02/06/2025 5:[address] [facility] Disclaimer This test was developed and [...] clinical laboratory testing. 02/06/2025 5:[address] [facility] Bone Marrow Specimen from bone marrow obtained by aspiration / Unknown 02/05/2025 10:47 AM EDT 02/05/2025 1:35 PM EDT Radha BOCANEGRA LAB BLOOD ORDERABLES Final Re sult [facility] ([facility]) [facility] [address] [place] [address], [place] [phone] * Bone marrow exam (02/05/2025 10:47 AM EDT) Cytogenetics Report, Addendum This case was sent to [facility], [address] [place], (CLIA #[id number]) for Cytogenetic studies. Their diagnosis is as [...] Electronic Signature Electronic Signature Escobar Crespo, Ph.D., [facility] - Leanne Sneed M.D., Ph.D. [facility]. Report Date: 02/13/2025 05:31:41 PM ET (See scanned copy for full report) 12:44 PM EDT [facility]) [facility] Addendum electronically signed by Escobar Kincaid MD on 02/14/2025 at 1:01 PM Addendum 2 NOTE: Although not pathogenic mutations/copy number alterations were detected, there was a single variant of unknown significance (NOTCH1 [id number]>C , a missense mutation, with a variant allele frequency of 33.3%) was detected. 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 This case was sent to [facility], [address], [place], (CLIA #[id number]) for Myeloid Disorders (DNA Only) studies. Their diagnosis is as follows: [facility] Comprehensive Myeloid Disorders (DNA Only) Results Summary SNVs/Indels NONE Detected Copy Number Variations (CNVs) NONE Detected Pertinent Negatives NO alterations detected in the following genes: CALR, FLT3, IDH1, IDH2, JAK2, MPL, NPM1, TP53 Interpretation NOTE: DNA only analysis was performed. RNA sequencing results for fusions are not generated in DNA only testing. - No pathogenic mutations/copy number alterations are detected in any of the genes on this NGS panel. For variant of unknown clinical significance, please see the relevant table, below. - The absence of any pathogenic variants does not entirely exclude the presence of a myeloid neoplasm. Correlation with morphology, flow cytometry, cytogenetics and/or FISH as well as other pertinent clinical and diagnostic information is recommended. Electronic Signature Ondina Masterson M.D., Molecular Pathologist Report Date: 02/21/2025 08:18:12 AM ET (Full report on file) The result was discussed with SAHRA Charles by Dr. Derick Kincaid on 02/26/2025 via secure text. 12:44 PM EDT [facility] Addendum electronically signed by Escobar Kincaid MD on 02/26/2025 at 12:44 PM Final Diagnosis Bone Marrow, aspiration, core [...] and no increase in the proportion of SL93-wfmpjela blasts. Reticulin staining shows no significant increase [...] be considered. Karyotype and molecular testing (NGS, [facility] Comprehensive Myeloid Disorders) is pending, addendum to follow. CBC (most recent CBC available in [facility] from 07/30/2024): WBC 7.8 k/uL, Hemoglobin 12.4 [...] biopsy specimen to assess the proportion of LH09-kuschmeh blasts in the tissue. There are scattered RV62-ffahqcrn mononuclear cells and endothelial cells identified. The proportion of BD28-thzddcic mononuclear cells does not appear increased. Flow Cytometry ([id number]) - No monotypic B cell population identified. - Most of the lymphocytes are CD3-positive T cells including CD4-positive and CD8-positive subsets without diagnostic phenotypic aberrancy. - There is no increase in the proportion of YB37-cbpjzhyy blasts (less than 1%). Note: The flow cytometric findings are not diagnostic of a B cell or T cell lymphoproliferative disorder. The proportion of LM64-glwquilv blasts is not increased. Although phenotypic maturation of granulocytes and monocyte appears generally telephone operator receptionist, please note that myeloid disorders cannot be [...] are 75.3% of total and show generally telephone operator receptionist immunophenotypic maturation. - Monocytic cells are 6.2% of total and show generally telephone operator receptionist immunophenotypic maturation. - CD45 dim cells are 2.7% of total. CD34+ Blasts are not increased (less than 1%). A small number of IV32-wgvjkxlq cells with expression of CD10, CD19 and CD38 and very low side light scatter, compatible with hematogones is noted. Antibodies (27 markers): CD2, CD3, CD4, CD5, CD7, CD8, CD10, CD11b, CD13, CD14, CD15, CD16, CD19, CD20, CD33, CD34, CD38, CD45, CD56, CD64, CD117, CD123, CD200, HLA-DR, [place], Lambda, TCR??. This test was developed and [...] special stains were performed with appropriate controls. 12:44 PM EDT [facility] Comment The findings were discussed with SAHRA Charles by Dr. Derick Kincaid on 02/12/2025. NGS testing was requested in order to further assess for the possibility of a clonal cause for this patient's cytopenias. 12:44 PM EDT [facility] Gross Description A. Bone Marrow Aspirate, : Labeled bone marrow aspirate smears . Eleven slides are prepared. One slide subsequently is stained for iron. Two slides are stained with Hawkins's giemsa. Approximately 4 ml of bone marrow aspirate is received in a purple top tube and submitted to [facility], flow cytometry lab, [place], [place] for flow cytometric studies. Additionally, 3ml of bone marrow aspirate is received in a purple top tube and approximately 6ml of bone marrow aspirate is received in two green top tubes and submitted in to [facility], [place], [place], for cytogenetic studies. B. Bone Marrow [...] optimal formalin fixation) 2-clot, multiple pieces TS 12:44 PM EDT [facility] Disclaimer Unless otherwise specified, all tissue is 10% NB formalin fixed and paraffin embedded. NOTE: The immunohistochemical tests and in situ hybridization tests were developed and their performance characteristics were determined by [facility]. They have not been [...] high complexity clinical laboratory testing. (controls appropriate) 12:44 PM EDT [facility] Bone Marrow Specimen from bone marrow obtained by aspiration / Unknown 02/05/2025 10:47 AM EDT 02/05/2025 11:16 AM EDT Bone marrow specimen (specimen) Specimen from bone marrow obtained by biopsy / Unknown 02/05/2025 10:47 AM EDT 02/05/2025 11:16 AM EDT us Radha BOCANEGRA LAB PATHOLOGY ORDERABLES Edit ed Result - Final [facility] [address] [place] [address], [place] [phone] * POCT Glucose, blood (02/05/2025 10:28 AM EDT) Only the most recent of2 resultswithin the time period is included. [facility] Glucose POCT 94 70 - 100 mg/dL 02/05/2025 10:29 AM EDT [facility] Blood Capillary blood specimen / Unknown 02/05/2025 10:28 AM EDT 02/05/2025 10:30 AM EDT us Generic Provider Poct LAB POINT OF CARE TEST DOCKED DEVICE UNSOLICITED RESULTS Final Result Performing Organization Address [facility]/ZIP Co de Phone Number [facility] [address] [place] [address], [place] [phone] * Lipid panel with reflex to direct LDL (07/30/2024 9:57 AM EST) [facility] Cholesterol 127 0 - 200 mg/dL LAB CHEMISTRY METHOD 07/30/2024 4:[address] [facility] Triglycerides 140 0 - 150 mg/dL LAB CHEMISTRY METHOD 07/30/2024 4:[address] [facility] LAB HDL 68 >=40 mg/dL LAB CHEMISTRY METHOD 07/30/2024 4:[address] [facility] LDL Calculated 31 0 - 100 mg/dL LAB CHEMISTRY METHOD 07/30/2024 4:[address] [facility] VLDL Cholesterol Rick 28 mg/dL LAB CHEMISTRY METHOD 07/30/2024 4:[address] [facility] Non HDL Chol. (LDL+VLDL) 59 <145 mg/dL LAB CHEMISTRY METHOD 07/30/2024 4:[address] [facility] Chol/HDL Ratio 1.9 0.0 - 4.4 LAB CHEMISTRY METHOD 07/30/2024 4:[address] [facility] Blood Venous blood specimen / Unknown Venipuncture / Unknown 07/30/2024 9:57 AM EST 07/30/2024 9:57 AM EST us Francisco J Galeana MD LAB BLOOD ORDERABLES Final Resul t [facility] [address] [place] [address], [place] [phone] * (ABNORMAL) Comprehensive metabolic panel (07/30/2024 9:57 AM EST) Sodium 138 133 - 145 mmol/L LAB CHEMISTRY METHOD 07/30/2024 4:[address] [facility] Comment:Results verified by repeat testing Potassium 4.5 3.5 - 5.5 mmol/L LAB CHEMISTRY METHOD 07/30/2024 4:[address] [facility] Chloride 107 96 - 110 mmol/L LAB CHEMISTRY METHOD 07/30/2024 4:[address] [facility] CO2 27 21 - 32 mmol/L LAB CHEMISTRY METHOD 07/30/2024 4:[address] [facility] Anion Gap 4 3 - 11 LAB CHEMISTRY METHOD 07/30/2024 4:[address] [facility] Glucose 68(L) 70 - 100 mg/dL LAB CHEMISTRY METHOD 07/30/2024 4:[address] [facility] BUN 28(H) 5 - 25 mg/dL LAB CHEMISTRY METHOD 07/30/2024 4:[address] [facility] Creatinine 2.44(H) 0.70 - 1.30 mg/dL LAB CHEMISTRY METHOD 07/30/2024 4:[address] [facility] eGFR 28(L) >=60 mL/min/1. 73m2 LAB CHEMISTRY METHOD 07/30/2024 4:[address] [facility] Comment:Calculation based on the Chronic Kidney Disease Epidemiology Collaboration (CKD-EPI) equation refit without adjustment for race. BUN/Creatinine Ratio 11.5 LAB CHEMISTRY METHOD 07/30/2024 4:[address] [facility] Calcium 9.8 8.5 - 10.5 mg/dL LAB CHEMISTRY METHOD 07/30/2024 4:[address] [facility] AST (SGOT) 28 10 - 42 unit/L LAB CHEMISTRY METHOD 07/30/2024 4:[address] [facility] ALT (SGPT) 43 10 - 60 unit/L LAB CHEMISTRY METHOD 07/30/2024 4:[address] [facility] Alkaline Phosphatase 84 42 - 121 unit/L LAB CHEMISTRY METHOD 07/30/2024 4:[address] [facility] Total Protein 7.0 6.0 - 8.0 g/dL LAB CHEMISTRY METHOD 07/30/2024 4:[address] [facility] Albumin 3.9 3.2 - 5.0 g/dL LAB CHEMISTRY METHOD 07/30/2024 4:[address] [facility] Total Bilirubin 0.3 0.0 - 1.4 mg/dL LAB CHEMISTRY METHOD 07/30/2024 4:[address] [facility] Blood Venous blood specimen / Unknown Venipuncture / Unknown 07/30/2024 9:57 AM EST 07/30/2024 9:57 AM EST us Radha BOCANEGRA LAB BLOOD ORDERABLES Final Re sult [facility] [address] [place] [address], * Hemoglobin A1c (01/11/2024) Hemoglobin A1C 0.0 % Comment:No Interpretation Blood Venous blood specimen / Unknown Historical Provider LAB BLOOD ORDERABLES Gertrude l Result * Urine Albumin Creatinine Ratio (01/10/2024) HM Urine Albumin Creatinine Ratio Abstracted Historical Provider HEALTH MAINTENANCE Final Result from Last 3 Months or Most Recently Relevant to Health Maintenance Insurance MEDICARE [facility] Advance Directives Documents on File Type Date Recorded Patient Curriculum Manager Expl anation Health Care Decision (hx) 06/04/2021 [...] LOPEZ DIRECTIVE Health Care Decision (hx) 06/04/2021 CONRADO LOPEZ DIRECTIVE Care Teams Creative Art Director Relationship Specialty Start Date End Date Rufino Rajput MD [address] [place] [address] PCP - General Internal Medicine 01/28/21
--- OUTSIDE RECORDS SUMMARY | 2025-05-07 08:51 | XMS_ITS | Encounter Summary ---
Author Organization [facility] Address [address] [place] [address] Care Team Providers Care Loft Worker Head Name Role Phone Rufino Rajput MD Primary Care Provider [phone] Francisco J Galeana MD Unavailable Orion Rodriguez MD Unavailable [phone] Kelby Celaya MD Unavailable [phone] System, Provider Not In Unavailable Unavaila ble Encounter Details Date Type Department Care Team (Late st Contact Info) Description 01/17/2024 Scanned Document [facility] [address] [place] [address] Dee Zhong [address] [facility] [address] [place] [address] Social History Tobacco Use Types Packs/Day Years [...] on filedocumented in this encounter Care Teams Loft Worker Head Relationship Specialty Start Date End Date Rufino Rajput MD [facility] [place], [place] PCP - General Internal Medicine 12/27/23 Francisco J Galeana MD [facility] [place], [place] Cardiology-Scan 01/06/24 Orion Rodriguez MD [address] [place] [address] Surgery, Orthopedic 01/10/24 Kleby Celaya MD [address] [place] [address] [address] [place] [address] Physician Nephrology 01/10/24 System, Provider Not In 01/10/24 documented as of this encounter
--- OUTSIDE RECORDS SUMMARY | 2025-05-07 08:51 | XMS_ITS | Encounter Summary ---
Author Organization [facility] Address [address] [place] [address] Care Team Providers Care Studio Assistant Name Role Phone Rufino Rajput MD Primary Care Provider [phone] Francisco J Galeana MD Unavailable Orion Rodriguez MD Unavailable Kelby Celaya MD Unavailable [phone] System, Provider Not In Unavailable Unavaila ble Encounter Details Date Type Department Care Team (Late st Contact Info) Description 01/18/2024 Scanned Document [facility] [address] [place] [address] Dee Zhong [address] [facility] [address] [place] [address] Social History Tobacco Use Types Packs/Day Years [...] on filedocumented in this encounter Care Teams Studio Assistant Relationship Specialty Start Date End Date Rufino Rajput MD [facility] [place], [place] PCP - General Internal Medicine 12/27/23 Francisco J Galeana MD [facility] [place], [place] Cardiology-Scan 01/06/24 Orion Rodriguez MD [address] [place] [address] Surgery, Orthopedic 01/10/24 Kelby Celaya MD [address] [place] [address] [address] [place] [address] Physician Nephrology 01/10/24 System, Provider Not In 01/10/24 documented as of this encounter
--- OUTSIDE RECORDS SUMMARY | 2025-05-07 08:51 | XMS_ITS | Clinical Summary ---
Author Organization [facility] Address [address] [place] [address] Phone Care Team Providers Care Electrical & Instrumentation Supervisor Name Role Phone Rufino Rajput MD Primary Care Provider [phone] Allergies Active Allergy Reactions Criticality Noted Date [...] 1 (one) time each day Active pancrelipase, Hau-Xuoa-Bebk, (CREON) 62700-95959 units capsule Take 1 capsule by mouth in the morning and 1 capsule at noon and 1 capsule in the evening. Take with meals. Active insulin aspart protamine-insu elisa aspart (NovoLOG 70/30) (70-30) 100 UNIT/ML injection Inject under the skin 2 (two) times a day before meals Active pregabalin (LYRICA) 75 MG capsule Take 150 mg by mouth in the morning and 150 mg in the evening and 150 mg before bedtime. Active Levemir FlexTouch 100 UNIT/ML injection 17 Units 09/10/19 Active insulin glargine (LANTUS) 100 UNIT/ML injection Inject 17 Units under the skin every night Active spironolactone (ALDACTONE) 25 MG tablet Take 1 tablet (25 mg total) by mouth 1 (one) time each day 90 tablet 3 07/20/20 24 2024 Active Additional Information Patient not taking.Reported on 04/29/2025 sodium bicarbonate 650 MG tablet Take 1 tablet (650 mg total) by mouth in the morning and 1 tablet (650 mg total) at noon and 1 tablet (650 mg total) in the evening and 1 tablet (650 mg total) before bedtime. 120 tablet 11 03/05/20 25 2025 Active insulin aspart (NovoLOG) 100 UNIT/ML patient supplied pump Inject under the skin continuously Active calcitriol (ROCALTROL) 0.25 MCG capsule Take 1 capsule by mouth once daily 30 capsule 04/16/20 25 Active NIFEdipine XL (Procardia XL) 30 MG 24 hr tablet Take 1 tablet (30 mg total) by mouth 1 (one) time each day Do not crush, chew, or split. 30 tablet 11 04/29/20 25 2025 Active NIFEdipine XL (Procardia XL) 30 MG 24 hr tablet Take 1 tablet (30 mg total) by mouth 1 (one) time each day Do not crush, chew, or split. 30 tablet 11 04/29/20 25 2025 Active calcitriol (ROCALTROL) 0.25 MCG capsule Take 1 capsule by mouth once daily 30 capsule 03/11/20 25 2024 Discontinued NIFEdipine XL (Procardia XL) 30 MG 24 hr tablet Take 1 tablet (30 mg total) by mouth 1 (one) time each day Do not crush, chew, or split. 30 tablet 11 03/20/20 25 2024 Discontinued(R eorder (does not appear on AVS)) Hospital, Clinic, or Other Facility Administered Medication Ordered Dose Route Frequency Start Date End Date Status Epoetin Cabrera-epbx solution 20,000 UnitsIndications:Chronic kidney disease, stage 4 (severe) (HCC),Anemia in chronic kidney disease 37653 Units IJ Once 04/29/2025 04/29/2025 E nded Active Problems Problem Noted Date Diagnosed Date Acquired hammer toe of right foot 04/29/2025 Chronic kidney disease, stage 4 (severe) 025 Chronic kidney disease, stage 4 (severe) 025 Type 1 diabetes mellitus wit h diabetic chronic kidney disease 03/20/2025 Chronic kidney disease, stage 4 (severe) 025 Renal osteodystrophy 04/20/2024 Stage 3b chronic kidney [...] 11/15/2013 Overview (04/24/2024): STORY: DOMINGO BURROWS RN [phone]/ANA PAULA IMPRESSION: BASED ON HOME MEASUREMENTS CONTROL [...] ( severe disability ) on ; initial [place]: 13 on 01/27/17 Glaucoma 09/04/2021 09/04/2021 H/O: [...] 04/06/2021 Pain of knee region 04/06/2021 04/06/20 Mitral valve regurgitation 04/06/2021 0 04/06/2021 Mononeuritis 04/06/2021 04/06/2021 Pain of multiple joints 04/06/2021 0909/2020 Neuropathy due to diabetes mellitus 04/06/2021 04/06/2021 Pure hypercholesterolemia 04/06/2021 Serum creatinine above reference range 04/06/2021 04/06/2021 Type 2 diabetes mellitus 04/06/2021 Noncompliance with medication regimen 07/25/2020 04/06/2021 Aortic root dilatation 12/17/201904/06 Nuclear cataract 01/31/2019 04/06/2021 Narrow angle of anterior chamber of left eye 9 04/06/2021 Recurrent major depression 12/05/2018 0 04/06/2021 Steatotic liver disease 09/14/201803/25 Dilatation of aorta 09/06/2018 04/06/20 21 Albuminuria 08/22/2018 04/06/2021 Bilateral tinnitus 10/04/2017 Sensorineural hearing loss 10/04/2017 0 04/06/2021 Pleural effusion 07/23/2013 09/04/2021 Old myocardial infarction 07/25/2000 Encounters Date Type Department Care Team Description 04/29/2025 2:30 PM EDT Clinical Support [facility] [address] [phone] Chronic kidney disease, stage 4 (severe) (HCC) (Primary Dx); Anemia in chronic kidney disease 04/29/2025 2:00 PM EDT [facility] [address] [phone] Kelby Celaya MD Chronic kidney disease, stage 4 (severe) (HCC) (Primary Dx); Anemia in chronic kidney disease; Type 2 diabetes mellitus with diabetic chronic kidney disease, 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) 04/21/2025 Orders Only [facility] [address] [phone] Karen Plascencia ARNP Stage 3b chronic kidney disease (HCC); Essential hypertension; Anemia in chronic kidney disease; Renal osteodystrophy 04/14/2025 Refill [facility] [address] [place] [address] Kelby Celaya MD 03/20/2025 2:15 PM EDT Office Visit [facility] [address] [phone] Kelby Celaya MD Type 2 diabetes mellitus with diabetic chronic kidney disease (HCC) (Primary Dx); Renal osteodystrophy; Chronic kidney disease, stage 4 (severe) (HCC) 03/11/2025 Refill [facility] [address] [place] [address] Kelby Celaya MD 03/05/2025 11:30 AM EDT Office Visit [facility] [address] [facility] [address] [place] [phone] Kelby Celaya MD Chronic kidney disease, stage 4 (severe) (HCC) (Primary Dx); Renal osteodystrophy 02/10/2025 Refill [facility] [address] [facility] [address] [place] [address] Kelby Celaya MD from Last 3 Months Immunizations Immunization Administration Dates Next Due Influenza (IM) Preservative Free 04/24/2024,08/2022,03/25/2020 Influenza Split High Dose Pr eservative Free IM 05/23/2015,03/30/2014 Influenza Split Preservative Free ID 04/06/2013, 06/05/2012 Influenza, MDCK, PF, Quadrivalent 04/24/2019, Influenza, Quadrivalent, Preservative Free 04/22 Influenza, Quadrivalent, With Preservative 04/23 Influenza, Unspecified 04/24/2019 Pfizer SARS-COV-2 04/18/2021,10/09/2020,09/18/19 21 Pneumococcal Conjugate 04/26/2008 Pneumococcal Polysaccharide 07/25/2013 Pneumococcal, Unspecified 07/06/2013 Tdap 08/22/2018,04/26/2008 Family History Medical History Relation [...] Sign Reading Time Taken Comments Blood Pressure 164/66 04/29/2025 2:25 PM EDT Pulse 59 04/29/2025 2:25 PM EDT Temperature - - Respiratory Rate - - Oxygen Saturation 98% 04/29/2025 2:25 PM EDT Inhaled Oxygen Concentration - - Weight 73.3 kg (161 lb 9.6 oz) 04/29/2025 2:25 P M EDT Height 182.9 cm (6') 08/11/2020 12:00 PM EST Body Mass Index 21.92 08/11/2020 12:00 PM EST Plan of Treatment Upcoming Encounters Date Type Department Care Team (Late st Contact Info) Description 05/30/2025 2:15 PM EST Clinical Support [facility] [address] [phone] 06/12/2025 8:30 AM EST Office Visit [facility] [address] [phone] Karen Plascencia ARNP [address] [phone] Health Maintenance Due Date Last [...] Hemoglobin A1C 04/12/2024 01/11/2024, 06/25 Influenza Vaccine (#1) 2025 , 04/25/2023, 03/25/2020, Additional history exists Pneumococcal Vaccine: Peds (0 to 5 Years) and At-Risk Patients (6 to 49 Years) Discontinued 07/25/2013, 07/06/2013, 04/26/2008 Hepatitis B Vaccine Aged Out No longe r eligible based on patient's age to complete this topic Procedures Procedure Name Priority Date/Time Associated Diagnosis Comments HEMATOLOGY COMMENTS Routine 04/24/2025 3 :14 PM EDT MAGNESIUM Routine 04/24/2025 3:14 PM EDT Stage 3b chronic kidney disease (HCC) Essential hypertension Anemia in chronic kidney disease Renal osteodystrophy PROTEIN / CREATININE RATIO, URINE Routine 04/24/2025 3:14 PM EDT Stage 3b chronic kidney disease (HCC) Essential hypertension Anemia in chronic kidney disease Renal osteodystrophy URINE ALBUMIN / CREATININE RATIO Routine 04/24/2025 3:14 PM EDT Stage 3b chronic kidney disease (HCC) Essential hypertension Anemia in chronic kidney disease Renal osteodystrophy CBC Routine 04/24/2025 3:14 PM EDT Stage 3b chronic kidney disease (HCC) Essential hypertension Anemia in chronic kidney disease Renal osteodystrophy RENAL FUNCTION PANEL Routine 04/24/2025 3:14 PM EDT Stage 3b chronic kidney disease (HCC) Essential hypertension Anemia in chronic kidney disease Renal osteodystrophy PTH, INTACT Routine 04/24/2025 3:14 PM EDT Stage 3b chronic kidney disease (HCC) Essential hypertension Anemia in chronic kidney disease Renal osteodystrophy IRON PANEL (FE, TIBC, TSAT) Routine 04/24/2025 3:14 PM EDT Type 2 diabetes mellitus with diabetic chronic kidney disease (HCC) Renal osteodystrophy Chronic kidney disease, stage 4 (severe) (HCC) VITAMIN D 25 HYDROXY Routine 04/24/2025 3:14 PM EDT Type 2 diabetes mellitus with diabetic chronic kidney disease (HCC) Renal osteodystrophy Chronic kidney disease, stage 4 (severe) (HCC) URINALYSIS WITH MICROSCOPIC Routine 04/24/2025 3:14 PM EDT Type 2 diabetes mellitus with diabetic chronic kidney disease (HCC) Renal osteodystrophy Chronic kidney disease, stage 4 (severe) (HCC) MICROSCOPIC EXAMINATION - DO NOT USE Routine 04/24/2025 3:14 PM EDT HEMATOLOGY COMMENTS Routine 03/05/2025 1 2:46 PM EDT IRON PANEL (FE, TIBC, TSAT) Routine 03/05/2025 12:46 PM EDT Chronic kidney disease, stage 4 (severe) (HCC) Renal osteodystrophy FERRITIN Routine 03/05/2025 12:46 PM EDT Chronic kidney disease, stage 4 (severe) (HCC) Renal osteodystrophy C4 COMPLEMENT Routine 03/05/2025 12:46 PM EDT Chronic kidney disease, stage 4 (severe) (HCC) Renal osteodystrophy C3 COMPLEMENT Routine 03/05/2025 12:46 PM EDT Chronic kidney disease, stage 4 (severe) (HCC) Renal osteodystrophy ZACHARY PANEL Routine 03/05/2025 12:46 PM EDT Chronic kidney disease, stage 4 (severe) (HCC) Renal osteodystrophy HEPATITIS B CORE ANTIBODY, IGM Routine 03/05/2025 12:46 PM EDT Chronic kidney disease, stage 4 (severe) (HCC) Renal osteodystrophy HEPATITIS C ANTIBODY Routine 03/05/2025 12:46 PM EDT Chronic kidney disease, stage 4 (severe) (HCC) Renal osteodystrophy HEPATITIS B SURFACE ANTIGEN Routine 03/05/2025 12:46 PM EDT Chronic kidney disease, stage 4 (severe) (HCC) Renal osteodystrophy HEPATITIS B SURFACE ANTIBODY QUANT Routine 03/05/2025 12:46 PM EDT Chronic kidney disease, stage 4 (severe) (HCC) Renal osteodystrophy KAPPA/LAMBDA FREE LT CHAINS W/RATIO Routine 03/05/2025 12:46 PM EDT Chronic kidney disease, stage 4 (severe) (HCC) Renal osteodystrophy PROTEIN ELECTROPHORESIS, SERUM Routine 03/05/2025 12:46 PM EDT Chronic kidney disease, stage 4 (severe) (HCC) Renal osteodystrophy MAGNESIUM Routine 03/05/2025 12:46 PM EDT Chronic kidney disease, stage 4 (severe) (HCC) Renal osteodystrophy CBC Routine 03/05/2025 12:46 PM EDT Chronic kidney disease, stage 4 (severe) (HCC) Renal osteodystrophy VITAMIN D 25 HYDROXY Routine 03/05/2025 12:46 PM EDT Chronic kidney disease, stage 4 (severe) (HCC) Renal osteodystrophy PROTEIN / CREATININE RATIO, URINE Routine 03/05/2025 12:46 PM EDT Chronic kidney disease, stage 4 (severe) (HCC) Renal osteodystrophy URINE ALBUMIN / CREATININE RATIO Routine 03/05/2025 12:46 PM EDT Chronic kidney disease, stage 4 (severe) (HCC) Renal osteodystrophy URINALYSIS WITH MICROSCOPIC Routine 03/05/2025 12:46 PM EDT Chronic kidney disease, stage 4 (severe) (HCC) Renal osteodystrophy RENAL FUNCTION PANEL Routine 03/05/2025 12:46 PM EDT Chronic kidney disease, stage 4 (severe) (HCC) Renal osteodystrophy PTH, INTACT Routine 03/05/2025 12:46 PM EDT Chronic kidney disease, stage 4 (severe) (HCC) Renal osteodystrophy MICROSCOPIC EXAMINATION - DO NOT USE Routine 03/05/2025 12:46 PM EDT US RENAL LIMITED Routine 02/08/2025 7:47 AM EDT Chronic kidney disease, stage 4 (severe) (HCC) BLOOD PANEL (HC) Routine 07/22/2020 12:0 0 AM EST from Last 3 Months or Most Recently Relevant to Health Maintenance Results * Hematology Comments (04/24/2025 3:14 PM EDT) Only the most recent of2 resultswithin the time period is included. Comment: Note: [facility] Comment: CBC met reflex criteria for review of peripheral smear by medical laboratory professional. Automated results were confirmed by smear review. 04/24/2025 3:14 PM EDT 04/24/2025 Kelby Celaya MD LAB BLOOD ORDERABLES Final Re sult Performing Organization Address City/[facility]/ZIP Co de Phone Number [facility] [address] [place] [phone] * Microscopic Examination (04/24/2025 3:14 PM EDT) Only the most recent of2 resultswithin the time period is included. WBC, Urine None seen 0 - 5 /hpf [facility] RBC, Urine None seen 0 - 2 /hpf [facility] Squamous Epithelial, Urine None seen 0 - 10 /hpf [facility] Casts None seen None seen /lpf [facility] Bacteria, Urine None seen None seen/Few [facility] 04/24/2025 3:14 PM EDT 04/24/2025 Kelby Celaya MD LAB MICROBIOLOGY - GENERAL OR DERABLES Final Result Performing Organization Address City/[facility]/ZIP Co de Phone Number [facility] [address] [place] [address] * (ABNORMAL) Iron Panel (Fe, TIBC, TSAT) (04/24/2025 3:14 PM EDT) Only the most recent of2 resultswithin the time period is included. TIBC 247(L) 250 - 450 ug/dL [facility] UIBC 130 111 - 343 ug/dL [facility] Iron 117 38 - 169 ug/dL [facility] Iron Saturation (TSat) 47 15 - 55 % [facility] Blood Venous blood / Unknown 04/24/2025 3:14 PM EDT 04/24/2025 Kelby Celaya MD LAB BLOOD ORDERABLES Final Re sult Performing Organization Address City/[facility]/ZIP Co de Phone Number [facility] [address] [place] [address] * (ABNORMAL) Urine Protein / creatinine ratio (04/24/2025 3:14 PM EDT) Only the most recent of2 resultswithin the time period is included. Creatinine, Ur 53.7 Not Estab. mg/dL [facility] Protein, Ur 39.8 Not Estab. mg/dL [facility] Urine Protein/Creati nine Ratio 741(H) 0 - 200 mg/g creat [facility] Urine Urine specimen obtained by clean catch procedure / Unknown 04/24/2025 3:14 PM EDT 04/24/2025 Karen MARKHAM LAB URINE ORDERABLES Final Result Performing Organization Address City/[facility]/ZIP Co de Phone Number [facility] [address] [place] [address] * (ABNORMAL) Urine Albumin / Creatinine Ratio (04/24/2025 3:14 PM EDT) Only the most recent of2 resultswithin the time period is included. Albumin, Urine 154.2 Not Estab. ug/mL [facility] Albumin/Creatin ine Ratio 287(H) 0 - 29 mg/g creat [facility] Comment: Normal: 0 - 29 Moderately increased: 30 - 300 Severely increased: >300 Urine Urine specimen obtained by clean catch procedure / Unknown 04/24/2025 3:14 PM EDT 04/24/2025 us Karen Temo [facility] LAB URINE ORDERABLES Final Result [facility] [address] [place] [phone] * Vitamin D 25 Hydroxy (04/24/2025 3:14 PM EDT) Only the most recent of2 resultswithin the time period is included. Vitamin D, 25-OH, Total 37.7 30.0 - 100.0 ng/mL [facility] Comment: Vitamin D deficiency has been defined by the [place] of Medicine and an Endocrine Society practice guideline as a level of serum 25-OH vitamin D less than 20 ng/mL (1,2). The Endocrine Society went on to further define vitamin D insufficiency as a level between 21 and 29 ng/mL (2). 1. IOM ([place] of Medicine). 2010. Dietary reference intakes for calcium and D. [place]: The National Academies Press. 2. Ramirez MF, Gabe NC, Chris-Alberto LINDO, et al. Evaluation, treatment, and prevention of vitamin D deficiency: an Endocrine Society clinical practice guideline. JCEM. 2010; 96(7):1911-30. Blood Venous blood / Unknown 04/24/2025 3:14 PM EDT 04/24/2025 us Kelby Celaya MD LAB BLOOD ORDERABLES Final Re sult [facility] [address] [place] [address] * (ABNORMAL) Urinalysis with microscopic (04/24/2025 3:14 PM EDT) Only the most recent of2 resultswithin the time period is included. Specific [place], Urine 1.017 1.005 - 1.030 [facility] pH Urine 6.0 5.0 - 7.5 [facility] Color, Urine Yellow Yellow [facility] Appearance Urine Clear Clear [facility] WBC Esterase Urine Negative Negative [facility] Protein, Ur 1+(A) Negative/Tra ce [facility] Glucose, Ur 2+(A) Negative [facility] Ketones, Urine Negative Negative [facility] Blood Urine Negative Negative [facility] [phone] Bilirubin Urine Negative Negative [facility] Urobilinogen Urine 0.2 0.2 - 1.0 mg/dL [facility] Nitrite, Urine Negative Negative [facility] Microscopic Examination See below: [facility] [phone] Comment:Microscopic was ethan cated and was performed. Urine Urine specimen obtained by clean catch procedure / Unknown 04/24/2025 3:14 PM EDT 04/24/2025 Kelby Celaya MD LAB URINE ORDERABLES Final Re sult Performing Organization Address City/[facility]/ZIP Co de Phone Number [facility] [address] [place] [address] * (ABNORMAL) CBC (04/24/2025 3:14 PM EDT) Only the most recent of2 resultswithin the time period is included. WBC 7.2 3.4 - 10.8 x10E3/uL [facility] RBC 2.97(L) 4.14 - 5.80 x10E6/uL [facility] Hemoglobin 9.3(L) 13.0 - 17.7 g/dL [facility] Hematocrit 28.5(L) 37.5 - 51.0 % [facility] MCV 96 79 - 97 fL [facility] MCH 31.3 26.6 - 33.0 pg [facility] MCHC 32.6 31.5 - 35.7 g/dL [facility] RDW 12.9 11.6 - 15.4 % [facility] Platelets 85(LL) 150 - 450 x10E3/uL [facility] Blood Venous blood / Unknown 04/24/2025 3:14 PM EDT 04/24/2025 Karen MARKHAM LAB BLOOD ORDERABLES Final Result [facility] [address] [place] [address] * (ABNORMAL) PTH, intact (04/24/2025 3:14 PM EDT) Only the most recent of2 resultswithin the time period is included. PTH 136(H) 15 - 65 pg/mL [facility] Blood Venous blood / Unknown 04/24/2025 3:14 PM EDT 04/24/2025 [facility] LAB BLOOD ORDERABLES Final Result Performing Organization Address City/[facility]/ZIP Co de Phone Number [facility] [address] [place] [address] * Magnesium (04/24/2025 3:14 PM EDT) Only the most recent of2 resultswithin the time period is included. Magnesium 1.8 1.6 - 2.3 mg/dL [facility] Blood Venous blood / Unknown 04/24/2025 3:14 PM EDT 04/24/2025 [facility] LAB BLOOD ORDERABLES Final Result Performing Organization Address [facility] Co de Phone Number [facility] [address] [place] [address] * (ABNORMAL) Renal function panel (04/24/2025 3:14 PM EDT) Only the most recent of2 resultswithin the time period is included. Glucose 211(H) 70 - 99 mg/dL [facility] BUN 54(H) 8 - 27 mg/dL [facility] Creatinine 3.39(H) 0.76 - 1.27 mg/dL [facility] eGFR CKD-EPI CR 2020 19(L) >59 mL/min/1.7 3 [facility] BUN/Creatinine Ratio 16 10 - 24 [facility] Sodium 138 134 - 144 mmol/L [facility] Potassium 4.7 3.5 - 5.2 mmol/L [facility] Chloride 106 96 - 106 mmol/L [facility] Bicarbonate (CO2) 16(L) 20 - 29 mmol/L [facility] Calcium 8.6 8.6 - 10.2 mg/dL [facility] Albumin 4.1 3.9 - 4.9 g/dL [facility] Phosphorus 6.3(H) 2.8 - 4.1 mg/dL [facility] Blood Venous blood / Unknown 04/24/2025 3:14 PM EDT 04/24/2025 Karen Temo MARKHAM LAB BLOOD ORDERABLES Final Result [facility] [address] [place] [address] * Hepatitis C antibody (03/05/2025 12:46 PM EDT) Hep C Virus Ab Non Reactive Non Reactive [facility] [place] [phone] Comment: HCV antibody alone does not differentiate between previously resolved infection and active infection. Equivocal and Reactive HCV antibody results should be followed up with an HCV RNA test to support the diagnosis of active HCV infection. Blood Venous blood / Unknown 03/05/2025 12:46 PM EDT 03/05/2025 Kelby Celaya MD LAB BLOOD ORDERABLES Final Re sult [facility] [place] [address], [address] [place] [address] * (ABNORMAL) Chilo/Lambda free LT chains w/ratio, Serum (03/05/2025 12:46 PM EDT) Free Chilo Lt Chains, S 70.0(H) 3.3 - 19.4 mg/L [facility] Free Lambda Lt Chains, S 62.5(H) 5.7 - 26.3 mg/L [facility] Free Chilo/Lambda Ratio 1.12 0.26 - 1.65 [facility] Blood Venous blood / Unknown 03/05/2025 12:46 PM EDT 03/05/2025 Kelby Celaya MD LAB BLOOD ORDERABLES Final Re sult Performing Organization Address City/[facility]/ZIP Co de Phone Number [facility] [address] [place] [address] * Hepatitis B core antibody, IgM (03/05/2025 12:46 PM EDT) Hep B Core IgM Negative Negative [facility] Blood Venous blood / Unknown 03/05/2025 12:46 PM EDT 03/05/2025 Kelby Celaya MD LAB BLOOD ORDERABLES Final Re sult Performing Organization Address [facility] Co de Phone Number [facility] [employer] [facility] [address], [address] [place] [address] * (ABNORMAL) Hepatitis B Surface Antibody (03/05/2025 12:46 PM EDT) Hepatitis B Surface Ab 5.8(L) Immunity>1 0 mIU/mL [facility] [place] Comment: Status of Immunity Anti-HBs Level Inconsistent with Immunity 0.0 - 10.0 Consistent with Immunity >10.0 Blood Venous blood / Unknown 03/05/2025 12:46 PM EDT 03/05/2025 Kelby Celaya MD LAB BLOOD ORDERABLES Final Re sult [facility] [address], [address] [place] [address] * Hepatitis B Surface Antigen (03/05/2025 12:46 PM EDT) Hep B Surface Ag Negative Negative [facility] Blood Venous blood / Unknown 03/05/2025 12:46 PM EDT 03/05/2025 Kelby Celaya MD LAB BLOOD ORDERABLES Final Re sult [facility] [address], [address] [place] [address] * C3 Complement (03/05/2025 12:46 PM EDT) Pathologist [facility] C3 Complement 95 82 - 167 mg/dL [facility] Blood Venous blood / Unknown 03/05/2025 12:46 PM EDT 03/05/2025 Kelby Celaya MD LAB BLOOD ORDERABLES Final Re sult [facility] [address] [place] [address] * C4 Complement (03/05/2025 12:46 PM EDT) Pathologist [facility] C4 Complement 15 12 - 38 mg/dL [facility] Blood Venous blood / Unknown 03/05/2025 12:46 PM EDT 03/05/2025 Kelby Celaya MD LAB BLOOD ORDERABLES Final Re sult [facility] [address] [place] [address] * ZACHARY Panel (03/05/2025 12:46 PM EDT) ZACHARY Negative Negative [facility] Blood Venous blood / Unknown 03/05/2025 12:46 PM EDT 03/05/2025 us Kelby Celaya MD LAB BLOOD ORDERABLES Final Re sult [facility] [address] [place] [address] * Protein electrophoresis, serum (03/05/2025 12:46 PM EDT) Pathologist [facility] Total Protein 6.1 6.0 - 8.5 g/dL [facility] Albumin 3.5 2.9 - 4.4 g/dL [facility] Bdwyq-2-Tyehgxnx 0.2 0.0 - 0.4 g/dL [facility] [phone] Sofba-1-Rgeqvzzu 0.6 0.4 - 1.0 g/dL [facility] Beta Globulin 0.8 0.7 - 1.3 g/dL [facility] Gamma Globulin in Serum 1.0 0.4 - 1.8 g/dL [facility] M-Ady Serum Not Observed Not Observed g/dL [facility] Globulin, Total 2.6 2.2 - 3.9 g/dL [facility] [phone] A/G Ratio 1.3 0.7 - 1.7 [facility] Please note Comment [facility] Comment: Protein electrophoresis scan will follow via computer, mail, or title attorney delivery. PDF . [facility] Blood Venous blood / Unknown 03/05/2025 12:46 PM EDT 03/05/2025 us Kelby Celaya MD LAB BLOOD ORDERABLES Final Re sult [facility] [address] [place] [address] * Ferritin (03/05/2025 12:46 PM EDT) Ferritin 56 30 - 400 ng/mL [facility] Blood Venous blood / Unknown 03/05/2025 12:46 PM EDT 03/05/2025 us Kelby Celaya MD LAB BLOOD ORDERABLES Final Re sult Performing Organization Address [facility] [facility] de Phone Number [facility] [place] [address] [place] [address] * Ultrasound renal limited (02/08/2025 7:47 AM EDT) Anatomical Region Laterality Modality Body Ultrasound us Kelby Celaya MD IMG US PROCEDURES Final Resul t * (ABNORMAL) Blood Panel (07/22/2020 12:00 AM [...] mg/dl PVNMA 07/22/2020 us [facility] [id number] LICITED RESULTS Final Result PVNMA from Last 3 Months or Most Recently Relevant to Health Maintenance [place] [address] [place] [address] Medicare Care Teams Electrical & Instrumentation Supervisor Relationship Specialty Start Date End Date Rufino Rajput MD [address] [place] [address] PCP - General Internal Medicine 04/06/21
--- OUTSIDE RECORDS SUMMARY | 2025-05-07 08:51 | XMS_ITS | Encounter Summary ---
Author Organization [facility] Address [address] [place] [address] Care Team Providers Care Gsa Coordinator Name Role Phone Rufino Rajput MD Primary Care Provider [phone] Francisco J Galeana MD Unavailable Orion Rodriguez MD Unavailable [phone] Kelby Celaya MD Unavailable [phone] System, Provider Not In Unavailable Unavaila ble Encounter Details Date Type Department Care Team (Late st Contact Info) Description 04/18/2024 Scanned Document [facility] [address] [place] [address] Dee Zhong [address] [facility] [address] [place] [address] Social History Tobacco Use Types Packs/Day Years [...] on filedocumented in this encounter Care Teams Gsa Coordinator Relationship Specialty Start Date End Date Rufino Rajput MD [facility] [place], [place] PCP - General Internal Medicine 12/27/23 Francisco J Galeana MD [facility] [place], [place] Cardiology-Scan 01/06/24 Orion Rodriguez MD [address] [place] [address] Surgery, Orthopedic 01/10/24 Kelby Celaya MD [address] [place] [address] [address] [place] [address] Physician Nephrology 01/10/24 System, Provider Not In 01/10/24 documented as of this encounter
--- OUTSIDE RECORDS SUMMARY | 2025-05-07 08:51 | XMS_ITS | Clinical Summary ---
Author Organization [facility] Address [address] [place] [address] Care Team Providers Care Hazardous Materials Driver Name Role Phone Rufino Rajput MD Primary Care Provider [phone] Francisco J Galeana MD Unavailable Orion Rodriguez MD Unavailable [phone] Kelby Celaya MD Unavailable [phone] System, Provider Not In Unavailable Unavaila [...] needed by sublingual route. Active pancrelipase (Creon) [address] Particles Take 1 capsule [...] osteomyelitis of right ankle or foot. Plan 7/12/24 removal right foot hardware, bone biopsy. Surgeon [...] before surgery). Coronary artery disease invo lving seneca heart without angina pectoris 01/08/2024 Assessment & Plan (01/10/2024 7:13 PM EDT): [place] Follows with cardiology. Cardiac clearance scheduled 01/24/24 [...] Plan (01/08/2024 2:33 PM EDT): Managed with Family History Medical History Relation Name Comments [...] 48 02/03/2024 11:15 AM EDT Temperature 35.7 C (96.2 F) 02/03/2024 11:15 AM EDT Respiratory Rate 16 02/03/2024 11:15 AM EDT Oxygen Saturation 98% 02/03/2024 11:15 AM EDT Inhaled Oxygen Concentration - - Weight 70.4 kg (155 lb 3.2 oz) 01/11/2024 11:20 AM EDT Height 175.3 cm (5' 9 ) 01/11/2024 11:20 AM EDT Body Mass Index 22.92 01/11/2024 11:20 AM EDT Plan of Treatment Health Maintenance Due Date Last Done Comments Advance Care Planning 1955 Hepatitis C Virus Screening 1955 Foot Exam [...] 2015 Abdominal Aortic Aneurysm (AAA) Screening 12/28/2020 Hemoglobin A1C 07/12/2024 01/11/2024, 01/11/2024 Creatinine with GFR 01/10/2025 01/11/2024 Influenza Vaccine 02/22/2025 04/14/2023, , 04/18/2021, Additional history exists COVID-19 Vaccine ( season) 2025 04/18/2021, 10/09/2020, 09/18/2020 Hepatitis B Vaccines Aged Out No long er eligible based on patient's age to complete this topic Medical Devices Implanted Type Area Manager Of Program Device Identifier Shelf Expiration Date Model / Serial / Lot 620-005 Filler Bone Void 5cc 12.5cc Calcium Slf Stimulan Rpd Cure - [id number] Implanted:Qty : 1 on 02/03/2024 by Orion Rodriguez MD at [facility] Void Filler Right: Foot [employer] - A BTG INT [id number] 03/24/2026 620-005 / / [id number] Procedures Procedure Name Priority Date/Time Associated Diagnosis Comments HEMOGLOBIN A1C WITH ESTIMATED AVERAGE GLUCOSE Routine 01/11/2024 12:22 PM EDT Preop examination Painful orthopaedic hardware (HCC) Acute osteomyelitis of right ankle or foot (HCC) Peripheral polyneuropathy Essential hypertension Pure hypercholesterolemia Coronary artery disease involving seneca heart without angina pectoris, unspecified vessel or [...] hypertension Pure hypercholesterolemia Coronary artery disease involving seneca heart without angina pectoris, unspecified vessel or lesion type Gastroesophageal reflux disease without esophagitis Pancreatic insufficiency Alcoholic cirrhosis, unspecified whether ascites present (HCC) History of alcohol abuse Anxiety and depression Dilation of aorta (HCC) from Last 3 Months or Most Recently Relevant to Health Maintenance Results * (ABNORMAL) Hemoglobin A1c with Estimated Average Glucose (01/11/2024 12:22 PM EDT) Hemoglobin A1C 7.4(H) <5.7 % 01/11/2024 8:16 PM EDT [facility] Comment: A1c% Interpretation 5.7 - 6.0 Increase risk of diabetes 6.1 - 6.4 Higher risk of diabetes > or = 6.5 Consistent with diabetes Diabetes Care, 33(Supp 1):S1-S61, 2009 Estimated Average Glucose 166 mg/dL 01/11/2024 8:16 PM EDT [facility] Blood Blood specimen / Unknown 01/11/2024 12:22 PM EDT 01/11/2024 7:01 PM EDT us Kaykay Bailey APRN LAB BLOOD ORDERABLES Final R esult [address] [address], [address] [address] * (ABNORMAL) Basic Metabolic Panel (01/11/2024 12:22 PM EDT) Glucose 231(H) 65 - 99 mg/dL 01/11/2024 7:38 PM [facility] Comment:Fasting: <100 mg/dL, Non-Fasting: <200 mg/dL (ADA 2004) Blood Urea Nitrogen (BUN) 34(H) 8 - 21 mg/dL 01/11/2024 7:38 PM [facility] Creatinine 2.1(H) 0.5 - 1.3 mg/dL 01/11/2024 7:38 PM [facility] eGFR 34(L) >59 01/11/2024 7:38 PM [facility] Comment:CKD-EPI (2020) in mL /min/1.73 sq meters. Sodium 138 136 - 145 mmol/L 01/11/2024 7:38 PM [facility] Potassium 5.2 3.4 - 5.3 mmol/L 01/11/2024 7:38 PM [facility] Chloride 108(H) 98 - 107 mmol/L 01/11/2024 7:38 PM [facility] CO2 19(L) 22 - 33 mmol/L 01/11/2024 7:38 PM [facility] Anion Gap 11 7 - 17 01/11/2024 7:38 PM [facility] Calcium 9.0 8.7 - 10.5 mg/dL 01/11/2024 7:38 PM [facility] BUN/Creatinine Ratio 16 10.0 - 25.0 Ratio 01/11/2024 7:38 PM [facility] Blood (Plasma/Serum) 01/11/2024 12:22 PM EDT 01/11/2024 7:01 PM EDT us Kaykay Bailey TRAINING ANALYST LAB BLOOD ORDERABLES Final R esult [address] [address], [address] [address] from Last 3 Months or Most Recently Relevant to Health Maintenance Insurance MEDICARE PART A & B Member Subscriber Plan / Payer (Ef fective 2020-Present) Name:Quentin Lara Member ID:[id number] Relation to Subscriber:Self Name:Quentin Lara Subscriber ID:[id number] Payer ID:[id number] Group ID:Not on file Type:Not on file Address: [address] MEDICARE PART A & B Member Subscriber Plan / Payer (Ef fective 2020-) Name:Quentin Lara Member ID:[id number] Relation to Subscriber:Self Name:ScottwendyQuentin Subscriber ID:[id number] Payer ID:[id number] Group ID:Not on file Type:Not on file Address: [address] Advance Directives * Full Code (Latest Code Status on File) Date Activated Date Inactivated Comments 02/03/2024 7:41 AM Care Teams Hazardous Materials Driver Relationship Specialty Start Date End Date Rufino Rajput MD [address] [place] [address] PCP - General Internal Medicine 12/27/23 Francisco J Galeana MD [address] [place] [address] Cardiology-Scan 01/06/24 Orion Rodriguez MD [address] [place] [address] [address] [place] [address] Surgery, Orthopedic 01/10/24 Kelby Celaya MD [address] [place] [address] Physician Nephrology 01/10/24 System, Provider Not In 01/10/24
--- OUTSIDE RECORDS SUMMARY | 2025-05-07 08:51 | XMS_ITS | Encounter Summary ---
Author Organization [facility] Address [address] [place] [address] Care Team Providers Care Clinical Specialty Rep Name Role Phone Rufino Rajput MD Primary Care Provider [phone] Francisco J Galeana MD Unavailable Orion Rodriguez MD Unavailable [phone] Kelby Celaya MD Unavailable [phone] System, Provider Not In Unavailable Unavaila ble Encounter Details Date Type Department Care Team (Late st Contact Info) Description 04/16/2024 Scanned Document [facility] [address] Orion Rodriguez MD [address] [place] [address] Social History Tobacco Use Types Packs/Day Years [...] on filedocumented in this encounter Care Teams Clinical Specialty Rep Relationship Specialty Start Date End Date Rufino Rajput MD [facility] [place], [place] PCP - General Internal Medicine 12/27/23 Francisco J Galeana MD [facility] [place], [place] Cardiology-Scan 01/06/24 Orion Rodriguez MD [address] [place] [address] Surgery, Orthopedic 01/10/24 Kelby Celaya MD [address] [place] [address] Physician Nephrology 01/10/24 System, Provider Not In 01/10/24 documented as of this encounter
--- OUTSIDE RECORDS SUMMARY | 2025-05-07 08:51 | XMS_ITS | Patient Health Record ---
Author Organization [facility] Address [address] [place] [address] Care Team Providers Care Web Art Director Name Role Phone [facility] CONKLIN, [facility] Primary Care Provider Ni Almanza Unavailable [phone] Allergies Allergen (clinical drug ingredient) Drug/Non Drug [...] Start Date End Date Status Zenpep Not-Taking Lisinopril 20 MG Oral; Duration: 90 Not-Taking Vitamin B-1 100 MG 1 tablet Orally Once a day; Duration: 30 day(s) Not-Taking metFORMIN HCl 1000 MG Oral; Duration: 30 Not-Taking Extra Depth Orthopedic Shoes (1 Pair) with Customized Heat Molded Multidensity Innersoles (3 Pair) as directed Dx: NIDDM/Polyneuropathy (E11.42), Trevone Foot Deformity (M20.41,M20.42), Preulcerative Skin Lesion(s) (L85.1 07/12/2024 Active Ketostix In Vitro; Duration: 50 Not-Taking Vitamin C Not-Taking Lyrica 50 MG 1 capsule Orally Three times a day Not-Taking Lactulose Not-Taking Physical Therapy . . . 2-3x/week; Duration: 3-4 weeks Not-Taking Furosemide 40 MG 1 tablet Orally Once a day; Duration: 30 day(s) Not-Taking Enulose Not-Taking Nitrostat 0.4 MG Sublingual No t-Taking Zolpidem Tartrate No t-Taking Physical Therapy . . . 2-3x/week; Duration: 3-4 weeks 03/01/2014 Not-Taking Doxycycline Hyclate Active Gabapentin 600 MG Oral; Duration: 90 Not-Taking Amoxicillin Active Extra Depth Diabetic Shoes with 3 Pair Custom heat-molded multi-density innersoles for 1 year Dx: Active glipiZIDE Not-Taking glyBURIDE 5 MG Oral; Duration: 30 Not-Taking Insulin Cartridge 3ML Not-Taking Metoprolol Succinate ER 50 MG 1 tablet Orally Once a day Not-Taking FreeStyle Lite Test In Vitro; Duration: 90 Not-Taking FreeStyle Lancets ; Duration: 90 Not-Taking Folic Acid 1 MG Oral; Duration: 90 Not-Taking Ferrous Sulfate 325 (65 Fe) MG 1 tablet Orally Once a day Not-Taking Extra Depth Diabetic Shoes with 3 Pair Custom heat-molded multi-density innersoles for 1 year Dx: 02/25/2021 Not-Taking Antibiotic Not-Takin g Creon 6 a day Active Spironolactone 25 MG 1 tablet Orally; Duration: 30 day(s) Active NovoLOG sliding scale Active Levemir Active Multivitamins Orally Active Omeprazole 40 MG 1 capsule 30 minutes before morning meal Orally Once a day; Duration: 30 day(s) Not-Taking Tamsulosin HCl 0.4 MG 1 capsule Orally Once a day; Duration: 30 day(s) Not-Taking Aspirin 81 MG 1 tablet Orally Once a day Active Atorvastatin Calcium 20 MG 1 tablet Orally Once a day Active Calcitriol 0.25 MCG 1 capsule Orally Three times a Week Active Pregabalin 100 MG 1 capsule Orally Three times a day Active Sodium Bicarbonate 650 MG as directed Orally Active Basaglar KwikPen Not -Taking Immunizations Vaccine Route Administration Date Status Comme nts Influenza Unknown 03/25/2020 Administered Influenza Unknown 04/25/2023 Administered Influenza Unknown 04/24/2024 Administered COVID-19 Pfizer BioNTech Vaccine Unknown 04/25/2021 [...] Problem Acquired hammer toe of right foot (922321655476836 5) Other hammer toe(s) (acquired), right foot (M20.41) Active confirmed Response to treatment, Improvement Problem Acquired hammer toe of left foot (571386931799484 3) Other hammer toe(s) (acquired), left foot (M20.42) Active confirmed Response to treatment, Improvement Problem Polyneuropathy due to type 2 diabetes mellitus (601355854) Type 2 diabetes mellitus with diabetic polyneuropathy (E11.42) Active confirmed Problem 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) Active confirmed Response to treatment- Improvement Problem Neuropathic ulcer of right foot (disorder) (021577700079741 02) Neuropathic ulcer of right foot, 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) Active confirmed Response to treatment Vital Signs Blood pressure diastolic 65 mm Hg 03/07/2025 Height 5ft 11in in 03/07/2025 Blood pressure systolic 126 mm Hg 03/07/2025 Weight 155 lbs 03/07/2025 BMI 21.62 kg/m2 03/07/2025 Procedures Procedure Date Ordered Date Performed Result Body Sit e 75918-LHEYQYE NAIL, 6 OR MORE 07/12/2024 N/A 07158-BAYL SKIN LESIONS, OVER 4 07/12/2024 N/A 88026-EKULFGM NAIL, 6 OR MORE 11/02/2024 N/A 22930-PVAY SKIN LESIONS, OVER 4 11/02/2024 N/A 61719-WRMCZFG NAIL, 6 OR MORE 02/20/2025 N/A 02593-LAZKGAG SKIN/TISSUE 02/20/2025 N/A 24422-EZBI SKIN LESIONS, OVER 4 02/20/2025 N/A 69220-QVSPFKR SKIN/TISSUE 03/07/2025 N/A Encounters Encounter Location Date Provider Diagnosis [address] [address] 07/12/2024 Ni Leone Other hammer toe(s) (acquired), right foot M20.41 ; Other hammer toe(s) (acquired), left foot M20.42 ; Type 2 diabetes mellitus with diabetic polyneuropathy E11.42 and Tinea unguium B35.[address] [address] 11/02/2024 Ni Leone Type 2 diabetes mellitus with diabetic polyneuropathy E11.42 ; Neuropathic ulcer of right foot, limited to breakdown of skin L97.511 and Tinea unguium B35.[address] [address] 11/16/2024 Ni Leone Neuropathic ulcer of right foot, limited to breakdown of skin L97.[address] [address] 02/20/2025 Ni Leone Type 2 diabetes mellitus with diabetic polyneuropathy E11.42 ; Neuropathic ulcer of right foot, limited to breakdown of skin L97.511 and Tinea unguium B35.[address] [address] 03/07/2025 Ni Leone Neuropathic ulcer of right foot with fat layer exposed L97.[address] [address] 03/07/2025 Ni Leone Assessments Encounter Date Diagnosis (ICD Code) Assessment Notes Treatment Notes Treatment Clinical Notes Section Notes 07/12/2024 Other hammer toe(s) (acquired), right foot (ICD-10 - M20.41) Patient Educated with: DIABETIC FOOT CARE INSTRUCTIONS. pdf (DIABETIC FOOT CARE INSTRUCTIONS. pdf) 07/12/2024 Other hammer toe(s) (acquired), left foot (ICD-10 - M20.42) 02/20/2025 Neuropathic ulcer of right foot, limited to breakdown of skin (ICD-10 - L97.511) Patient Educated with: WOUND CARE INSTRUCTIONS. pdf (WOUND CARE INSTRUCTIONS. pdf) 03/07/2025 Neuropathic ulcer of right foot with fat layer exposed (ICD-10 - L97.512) Response to treatment- Improvement Patient Educated with: WOUND CARE INSTRUCTIONS. pdf (WOUND CARE INSTRUCTIONS. pdf) 11/16/2024 Neuropathic ulcer of right foot, limited to breakdown of skin (ICD-10 - L97.511) Patient Educated with: WOUND CARE INSTRUCTIONS. pdf (WOUND CARE INSTRUCTIONS. pdf) 02/20/2025 Type 2 diabetes mellitus with diabetic polyneuropathy (ICD-10 - E11.42) 11/02/2024 Type 2 diabetes mellitus with diabetic polyneuropathy (ICD-10 - E11.42) 11/02/2024 Neuropathic ulcer of right foot, limited to breakdown of skin (ICD-10 - L97.511) Patient Educated with: WOUND CARE INSTRUCTIONS. pdf (WOUND CARE INSTRUCTIONS. pdf) 11/02/2024 Tinea unguium (ICD-10 - B35.1) 02/20/2025 Tinea unguium (ICD-10 - B35.1) 07/12/2024 Type 2 diabetes mellitus with diabetic polyneuropathy (ICD-10 - E11.42) 07/12/2024 Tinea unguium (ICD-10 - B35.1) 11/02/2024 Other Patient Educated with: DIABETIC FOOT CARE INSTRUCTIONS. pdf (DIABETIC FOOT CARE INSTRUCTIONS. pdf) 02/20/2025 Other Patient Educated with: DIABETIC FOOT CARE INSTRUCTIONS. pdf (DIABETIC FOOT CARE INSTRUCTIONS. pdf) Plan Of Treatment Pending Test Test Name Order Date X ray : Foot, left 2V 01/08/2014 X ray : Foot, right 2V 01/08/2014 X ray : Foot, left 3V 02/25/2021 X ray : Foot, right 3V 02/25/2021 X ray : Foot, right 3V 12/31/2022 06894-WAEBTPL NAIL, 6 OR MORE 07/12/2024 36438-ZTZIYCQ NAIL, 6 OR MORE 11/02/2024 71584-TVDNXKE NAIL, 6 OR MORE 02/20/2025 03899-LXNAEBU SKIN/TISSUE 10/07/2023 18801-WNBEOIL SKIN/TISSUE 02/20/2025 89311-DWLAHLX SKIN/TISSUE 04/30/2021 45805-WAHFMDY SKIN/TISSUE 08/03/2021 19268-JOGLJYY SKIN/TISSUE 03/07/2025 64626-LSLG SKIN LESIONS, OVER 4 02/21/20 25 97787-IIJH SKIN LESIONS, OVER 4 11/03/19 25 36108-UKOL SKIN LESIONS, OVER 4 07/12/20 24 83561-MVZR SKIN LESIONS, 2 TO 4 08/03/19 22 27095-UTWS SKIN LESIONS, 2 TO 4 04/30/20 21 77596-QANV SKIN LESIONS, 2 TO 4 02/26/20 21 85020-FJIGCFWK OF HEMATOMA/FLUID 022 Next Appt Details Provider Name:Ni Lee perla, 06/06/2025 09:15:00 AM, [address] [place], [address], Insurance Providers Payer Name Payer Address Payer Phone Subscriber Number Group Number Insured Name Patient Relationship to Insured Coverage Start Date Coverage End Date Medicare National [employer]t [employer] [address] [facility] [address] [id number] Quentin Lara Self - patient is the insured [facility] [address] [place] [address] [id number] Quentin Lara Self - patient is [...] kidney sones, 3 day stay 01/23 04/15 [facility] ER- Coundn't get up/lanre d -KidneyLiver failure-swelling/Infection ICU few weeks -rehab 6wks 05/29/2021 [facility] - pneumonia 06/2013-1-14
== END 2025-05-07 09:05 | disposition home or self-care (01) ==
LOC: HO.HMCC 08:29
PROVIDERS: PCP Internal Medicine; Visit Provider Internal Medicine
DX: Z00.01 Encounter for general adult medical examination with abnormal findings (principal); I10 Essential (primary) hypertension

== ENCOUNTER → 2025-05-07 08:28 | Outpatient (BNVA) | payer MEDICARE, OTHER, SELFPAY | PROVIDERS: PCP Internal Medicine; Visit Provider Internal Medicine | DX: Z00.00 Encounter for general adult medical examination without abnormal findings (principal); I10 Essential (primary) hypertension; Z79.899 Other long term (current) drug therapy | CPT/HCPCS: 96127; 99212 ==

== ENCOUNTER 2025-05-08 08:33 | Outpatient (AMB) | payer MEDICARE, OTHER, SELFPAY ==
--- OUTSIDE RECORDS SUMMARY | 2024-07-13 04:45 | XMS_ITS ---
Author Organization [facility] Address [address] [place] [address] Care Team Providers Care Skid Strapper Name Role Phone Regulo CONKLIN, Rufino Primary Care Provider Ni Almanza [phone] REASON FOR VISIT Transfer to Different Provider Encounters Encounter Location Date Provider Diagnosis [address] [address] 07/13/2024 Ni Leone Plan Of Treatment Next Appt Details Provider Name:Ni duncan, 06/06/2025 09:15:00 AM, [address] [place], [address], Progress Notes * Quentin LARA SDOB:[birth year] (69 yo M)Acc No.[id number]:07/13/2024 Progress Note Patient: Molly DIORQuentin Magno Provider: Hari Leone DPM :1955 A ge:68 Y S ex:Male Date:07/13/2024 Address:[address] [id number] Pcp:Rufino Rajput MD Subjective: * Chief Complaints: [...] 1 09/13/2023 Generated for Vika nicholson/Carrie/Ashley on: 09:00 AM EDT
[2025-05-08 08:35] VITALS: BP 140/72; PULSE 62; O2SAT 98; BMI 22.5
--- NOTE | 2025-05-08 08:35 | A.OFFPC_ITS ---
Vital Signs 05/08/25 08:35 Height 5 ft 11 in Weight 161 lb BMI 22.5 BP 140/72 H Blood Pressure Location Lt brachial Position Sitting Pulse 62 Pulse Source Pulse Oximeter Pulse Oximetry (%) 98 Intake Visit Reasons: follow up, DM Siene Maker Required: No Accompanied by: Self / Same As Patient Allergies codeine Allergy (Unknown, Verified 05/08/25 08:42) Unknown Medication List - Last Reconciled 05/08/25 by Rufino Rajput MD aspirin 81 mg PO BEDTIME atorvastatin 20 mg PO DAILY 90 days blood-glucose meter As directed calcitriol 0.25 mcg PO DAILY insulin aspart U-100 (Novolog FlexPen U-100 Insulin aspart) 6 - 9 sliding scale doses subcut BID insulin glargine (Lantus Solostar U-100 Insulin) 17 units subcut QAM lancets As directed aibvtd-hzrvmtsl-rotqrvq (pork) 24,000-76,000 -120,000 unit (Creon) 2 caps PO TID 90 days multivitamin 1 tab PO DAILY nifedipine ER 30 mg PO DAILY pen needle, diabetic B.i.d. pregabalin 150 mg PO TID 30 days thiamine HCl (vitamin B1) 100 mg PO DAILY Tobacco use date assessed: 11/13/24 Fall risk assessment: No Falls in past year Last assessed Fall Risk: 05/08/25 Dental Screening Dental Screen Date: 11/13/24 HPI follow up, DM HPI Details The patient is a 69 year old male presenting with hypertension and chronic kidney disease. Essential Hypertension: - Previously diagnosed with hypertension . - Blood pressure readings have been elev ated, with recent measurements of 164 and 174 systolic observed during visits. - Patient's blood pressure was elevated at two visits with Dr. Celaya, suggesting ongoing issues with control. - Currently, the patient is on nifedipin e, 30 mg and recent dose adjustments to 60 mg were made due to insufficient control with a 30 mg dose. - Reports better control of blood pressu re post-adjustment. Chronic Kidney Disease: - Diagnosed with chronic kidney disease, associated with hypertension and type 2 diabetes mellitus. - Concerns over declining kidney functio n as reflected in tests; previous labs from October show only GFR of 24 - Patient has been informed about potent ial future need for dialysis. - Expressed desire for a second opinion to evaluate his condition and potential interventions. Medical History: - Hypertension - Chronic kidney disease, associated wit h diabetes mellitus type 2 and hypertension - Type 2 Diabetes Mellitus - Anemia undergoing treatment possibly r elated to kidney disease with erythropoiesis-stimulating agents (Epocrit). Social History: - Reports living in an area with access [facility] - Engages in regular exercise, attending gym twice a week. Problem List - Essential Hypertension - Chronic Kidney Disease associated with Type 2 Diabetes Mellitus and Hypertens ion - Anemia secondary to Chronic Kidney Dis ease Diagnostic results - Labs: Most recent consultation report from Dr. Celaya on April 29 indicated reduced kidney function to 24% from earlier levels. - Past blood pressure readings noted: 16 4/??? and 174 systolic, indicating poor control prior to recent adjustments. Plan - Continue nifedipine at 60 mg daily for improved blood pressure control; patient reports improvement with increased dosage. - Discussed risk factors for chronic kid yoko disease due to hypertension and type 2 diabetes - Engage in educational class about dial ysis to understand potential future needs and processes. - Referral to physical therapy to addres s fall prevention and improve balance. - Regular monitoring of blood pressure a nd kidney function advised. - Discussed signs of worsening kidney fu nction and when to seek immediate care. Review of Systems General: No fever no chills neurological: No headaches no dizziness ear nose throat: No sore throat no hearing difficulty no ear pain cardiovascular: No syncope, no chest pain, no palpitations gastrointestinal: No nausea vomiting or diarrhea skin: No new complaints Physical Exam general: No acute distress HEENT: No acute findings neck: Supple respiratory system: Able to talk in full sentences, no audible wheeze no stridor cardiovascular: S1-S2 RRR gastrointestinal: No pain extremities: No new findings COMPLIANCE ASSOCIATE: Alert awake oriented x3 motor sensory intact skin: Normal turgor PFSH Medical History Ascites Chronic kidney disease GERD (gastroesophageal reflux disease) Macrocytic anemia Chronic diabetic ulcer of right foot determined by examination Anemia Osteomyelitis Hearing difficulty Neuropathy Cataracts, bilateral Bunion Heart attack CAD (coronary artery disease) High cholesterol Diabetes Hypertension Surgical History History of esophagogastroduodenoscopy (EGD) H/O colonoscopy Hx of heart artery stent Hx of cystoscopy Hx of endoscopy History of bunionectomy of right great toe H/O rotator cuff surgery H/O heart bypass surgery Family History Sister HTN (hypertension) Sister HTN (hypertension) Father Heart disease Heart attack Mother Kidney failure Social History Household Members: Significant Other [facility] Are you a primary respiratory care technician to a significant other at home: No Do you presently have visiting nurse or other home services: No Alcohol intake: current Alcohol intake frequency: former alcohol drinker Alcohol type: beer Patient Tobacco Use Status: Former Tobacco user Tobacco use type: Cigarette Cigarette Packs Per Day: 1 Cigarettes Per Day: 20 Years Smoked: 15 e-Cigarette/Vaping Use: Never Used Substance Use Type: Marijuana service: No Current occupational status: unemployed Cognitive needs: No Hearing needs: Yes Vision needs: No Questionnaire Thrive Questionnaire Date Thrive assessed: 11/10/24 I am a: Patient What is your living situation today?: I have a steady place to live Within the past 12 months, did the food you bought not last and you didn't have the money to get more?: Never true Within the past 12 months, did you worry whether your food would run out before you got money to buy more?: Never true Do you have trouble paying for medicines?: No Do you have trouble getting transportation to medical appointments?: No Do you have trouble paying your heating and electricity bill?: No Do you have trouble taking care of your child, family member or friend?: No Do you have trouble with day-to-day activities such as bathing, preparing meals, shopping, managing finances, etc.?: No Are you currently unemployed and looking for a job?: No Are you interested in more education?: No Please select the resources that you would like help with: None Currently or been in a relationship where the following occur: I choose not to answer THRIVE Score: 0 STANISLAV-7 AMB Questionnaire STANISLAV-7 Date STANISLAV - 7 assessed: 05/08/25 Feeling nervous, anxious, or on edge: 1 = Several days Not being able to stop or control worryin = Several days Worrying too much about different things: 1 = Several days Trouble relaxin = Not at all Being so restless that it is hard to sit still: 0 = Not at all Becoming easily annoyed or irritable: 1 = Several days Feeling afraid as if something awful might happen: 1 = Several days Total STANISLAV-7 score (0-4 normal; 5-9 mild; 10-14 moderate; 15-21 severe): 5 Source: Developed by Drs. Ted Hong, Mera Davenport, Jayro Elizabeth and colleagues, with an educational steffany from [employer]. STANISLAV-7 Assessment Billing STANISLAV-7 Assessment Tool: STANISLAV-7 Assessment 10906 Physical exam (Primary Care) Vital Signs: Last Vital Signs Pulse 62 05/08/25 08:35 BP 140/72 H 05/08/25 08:35 Pulse Ox 98 05/08/25 08:35 BMI result Body Mass Index 22.5 Tobacco/Smoking Status: Tobacco use Status Tobacco use date assessed 11/13/24 05/08/25 08:37 Patient Tobacco Use Status Former Tobacco user 05/08/25 08:37 Tobacco use type Cigarette 05/08/25 08:37 e-Cigarette/Vaping Use Never Used 05/08/25 08:37 Thrive Assessment: Date of Thrive Assessment Date Thrive assessed 11/10/24 05/08/25 08:37 Currently or been in a relationship where the following occur: I choose not to answer Results AMB Hemoglobin A1c AMB Hemoglobin A1c 5.8 % Last Edit by Sudhir Champion CMA on 05/08/25 08: 55 Results Reviewed Results Reviewed: Laboratory Last Values Hgb A1c (Clinic) 5.8 % (4.0-6.0) 05/08/25 08:37 Coding Level of Care Code Est Pt Level 4 (32133) Diagnoses Unstable gait R26.81 Risk for falls Z91.81 Hypertension, essential I10 Secondary diabetes mellitus with stage 4 chronic kidney disease (GFR 15-29) E1 3.22; N18.4 Normocytic anemia D64.9 Additional Codes STANISLAV-7 Assessment Billing - STANISLAV-7 Assessment Tool: STANISLAV-7 Assessment 97112 ([id number]) Assessment & Plan Assessment & Plan (1) Unstable gait: Code(s): R26.81 - Unsteadiness on feet Category: Medical (2) Risk for falls: Code(s): Z91.81 - History of falling Category: Medical (3) Hypertension, essential: Code(s): I10 - Essential (primary) hypertension Category: Medical (4) Secondary diabetes mellitus with stage 4 chronic kidney disease (GFR 15-29): Code(s): E13.22 - Other specified diabetes mellitus with diabetic chronic kidney disease; N18.4 - Chronic kidney disease, stage 4 (severe) Category: Medical (5) Normocytic anemia: Code(s): D64.9 - Anemia, unspecified Category: Medical Plan Essential Hypertension: - Previously diagnosed with hypertension. - Blood pressure readings have been elevated, with recent measurements of 164 and 174 systolic observed during visits. - Patient's blood pressure was elevated at two visits with Dr. Celaya, suggesting ongoing issues with control. - Currently, the patient is on nifedipine, 30 mg and recent dose adjustments to 60 mg were made due to insufficient control with a 30 mg dose. - Reports better control of blood pressure post-adjustment. Chronic Kidney Disease: - Diagnosed with chronic kidney disease, associated with hypertension and type 2 diabetes mellitus. - Concerns over declining kidney function as reflected in tests; previous labs from October show only GFR of 24 - Patient has been informed about potential future need for dialysis. - Expressed desire for a second opinion to evaluate his condition and potential interventions. Medical History: - Hypertension - Chronic kidney disease, associated with diabetes mellitus type 2 and hypertension - Type 2 Diabetes Mellitus - Anemia undergoing treatment possibly related to kidney disease with erythropoiesis-stimulating agents (Epocrit). Social History: - Reports living in an area with access to [facility] - Engages in regular exercise, attending gym twice a week. Problem List - Essential Hypertension - Chronic Kidney Disease associated with Type 2 Diabetes Mellitus and Hypertension - Anemia secondary to Chronic Kidney Disease Diagnostic results - Labs: Most recent consultation report from Dr. Celaya on April 29 indicated reduced kidney function to 24% from earlier levels. - Past blood pressure readings noted: 164/??? and 174 systolic, indicating poor control prior to recent adjustments. Plan - Continue nifedipine at 60 mg daily for improved blood pressure control; patient reports improvement with increased dosage. - Discussed risk factors for chronic kidney disease due to hypertension and type 2 diabetes - Engage in educational class about dialysis to understand potential future needs and processes. - Referral to physical therapy to address fall prevention and improve balance. - Regular monitoring of blood pressure and kidney function advised. - Discussed signs of worsening kidney function and when to seek immediate care. Orders: Orders PT Evaluation and Treatment Today R26.81 - Unsteadiness on feet, Z91.81 - History of falling AMB Hemoglobin A1c Today Z13.9 - Encounter for screening, unspecified
--- OUTSIDE RECORDS SUMMARY | 2025-05-08 09:00 | XMS_ITS | Clinical Summary ---
Author Organization [facility] Address [address] [place] [address] Care Team Providers Care [facility] Sales Name Role Phone Rufino Rajput MD Primary Care Provider [phone] Allergies Active Allergy Reactions Criticality Noted Date [...] total) by mouth daily. 0 Active pancrelipase, Ygr-Myvi-Niub, (CREON) 31900-[address]30 units CPEP Take 1 capsule (24,000 units [...] age to complete this topic Care Teams Medical Hospital Sales Relationship Specialty Start Date End Date Rufino Rajput MD [address] [facility] [place] [address] PCP - General Internal Medicine 01/13/24
--- OUTSIDE RECORDS SUMMARY | 2025-05-08 09:00 | XMS_ITS | Encounter Summary ---
Author Organization [facility] Address [address] [place] [address] Phone Care Team Providers Care Director Of Sports Medicine Name Role Phone Rufino Rajput MD Primary Care Provider [phone] Reason for Visit * Reason Comments Med Refill Encounter Details Date Type Department Care Team (Late Contact Info) Description 06/06/2021 Refill [facility] [address] [place] [phone] Olayinka Saldana MD Social History Tobacco Use [...] Clinical Support [facility] [address] [facility] [address] [place] [address] 06/12/2025 8:30 AM EST Office Visit [facility] [address] [place] [phone] Karen Plascencia ARNP [address] [phone] documented as of this encounter Visit Diagnoses Not on filedocumented in this encounter Care Teams Director Of Sports Medicine Relationship Specialty Start Date End Date Rufino Rajput MD [address] [place] [id number] PCP - General Internal Medicine 04/06/21 documented as of this encounter
--- OUTSIDE RECORDS SUMMARY | 2025-05-08 09:00 | XMS_ITS | Data Portability ---
Author Organization [facility], Main Office Address [address] [facility] [address] [place] [address] Care Team Providers Care Quill Cleaning Machine Operator Name Role Phone GLYNN HERNÁNDEZ Primary Care Provider [phone] SATHISH BRISENO Rental Clerk JACKY ROUSE Programming Development Project Manager [phone] KATIE NAVARRO Earth Auger Operator KATHE FITZPATRICK Quality Control Checker JESSICA MINAYA Program Support Clerk SEBASTIEN LINK Interactive Web Developer Assessment No assessment recorded. Plan of Treatment Reminders Order Date Submit Date Provider Last Modified By Organization Details Last Modified Time Details Appointments None recorded. Lab hemoglobi n A1C, fingersti ck 2018 019 [email or web address] In-Office Order, Internal Use Only DO Not Attach Compendium DO Not Attach Compendium, Do Not Delete/merge, [id number] 9 16:07:07 HbA1c (hemoglob in A1c), blood 2018 019 KATHY [facility], [address], [address], [place], [address], 9 22:21:36 HbA1c (hemoglob in A1c), blood 2018 019 KATHY [facility], [address], [place], [address], 9 22:21:53 CMP, serum or plasma 2018 019 KATHY [facility], [address], [address], [place], [address], 9 18:48:40 urinalysi s, complete 2018 019 KATH[facility], [address], [address], [place], [address], 9 18:33:34 CBC w/ auto diff 2018 019 K[facility], [address], [address], [place], [address], 9 18:49:41 HbA1c (hemoglob in A1c), blood 2018 019 K[facility], [address], [address], [place], [address], 9 22:55:14 ESR (erythroc yte sedimenta tion rate), blood 2018 019 [facility], [address], [address], [place], [address], 9 20:12:23 activated partial thrombopl astin time, coagulati on assay, blood 2018 019 K[facility], [address], [address], [place], [address], 9 19:34:47 PT/INR 2018 019 [facility], [address], [address], [place], [address], 9 19:44:19 CMP, serum or plasma 2018 019 [facility], [address], [address], [place], [address], 9 19:58:54 CBC w/ auto diff 2018 019 K[facility], [address], [address], [place], [address], 9 19:39:56 PSA, serum or plasma 2018 019 [facility], [address], [address], [place], [place], [address], 9 15:15:17 BMP, serum or plasma 2018 019 [facility], [address], [address], [place], [place], [address], 9 15:27:39 CBC w/ auto diff 2018 019 [facility], [address], [address], [place], [place], [address], 9 13:47:02 iron + total iron-bind ing capacity (TIBC), serum 2018 019 K[facility], [address], [address], [place], [address], 9 16:15:02 Referral pain managemen t referral - for follow up on pt with chronic worsenign neuropath y 2018 019 tfrisino [facility], [address] [place], [address], 9 09:41:11 diabetic ophthalmo logy referral 2018 019 KATHY Not available 9 17:39:39 gastroent erologist referral - for eval of pt with anemia and wt loss 2018 019 jeri Minaya MD, [address] [place], [address], 9 17:45:57 nutrition ist/dieti aneudy referral 2018 019 KATHY Not available 9 16:40:32 Procedures None recorded. Surgeries None recorded. Imaging None recorded. Medication Orders Lantus Solostar U-100 Insulin 100 unit/mL (3 mL) subcutane ous pen 2018 019 [email or web address] [facility], [address] [place] [address], [place], [address], 9 16:07:07 mirtazapi ne 30 mg tablet 2018 019 INTERFACE [facility], [address] [place] [address], [place], [address], 9 09:37:51 venlafaxi ne ER 75 mg capsule,e xtended release 24 hr 2018 019 [facility], [address] [place] [address], [place], [address], 9 11:06:36 mirtazapi ne 15 mg tablet 2018 019 berenice [facility], [address] [place] [address], [place], [address], 9 16:22:14 venlafaxi ne ER 75 mg capsule,e xtended release 24 hr 2018 019 [facility], [address] [place] [address], [place], [address], 9 11:06:36 Nitrostat 0.4 mg sublingua l tablet 2018 019 INTERFACE [facility], [address] [place], [place] [address] [place], [address], 9 10:55:03 Patient Targets Encounter Date Encounter Id Patient Goals Patient Target Last Modified By Organization Details Last Modified Time 01/03/2019 [id number] Ongoing of Microalbumin/Cre atinine Ratio yearly Not [...] Not available Not available Not available 01/03/2019 [id number] Pt advised and agrees to do moderate [...] By Organization Details Last Modified Time 09/19/2018 [id number] Nutrition Referral and Weight Management Follow-up Information berenice Not available 09/19/2018 10:55:01 anemia: care instructions awychowski Not available 09/19/2018 10:55:01 10/20/2018 [id number] Diabetic Foot Exam awychowski Not available 10/20/2018 [...] appt. [email or web address] Not available 10/20/2018 14:49:41 11/17/2018 [id number] learning about type 2 diabetes nbarrows Not available 12/05/2018 09:37:50 type 2 diabetes: care instructions nbarrows Not available 12/05/2018 09:37:50 high blood pressure: care instructions awychowski Not available 11/17/2018 16:40:11 learning about high blood pressure awychowski Not available 11/17/2018 16:40:11 12/19/2018 [id number] depression treatment: care instructions awychowski Not available 12/19/2018 11:34:58 high blood pressure: care instructions awychowski Not available 12/19/2018 11:34:58 learning about high blood pressure awychowski Not available 12/19/2018 11:34:58 non fasting labs in 4 weeks. awychowski Not available 12/19/2018 11:34:56 01/03/2019 [id number] hypoglycemia: care instructions Not available 01/03/2019 16:07:07 Medications (OTC, herbal therapies, supplements) reviewed and reconciled with patient and or caregiver, including potential side effects, drug interactions, instructions, and the consequences of not taking medication. Reviewed potential barriers to medication adherence, such as side effects from medication or cost of medication. rkanu Not available 01/03/2019 14:22:39 Reason for Referral Alarm Signal Operator/dietitian Refer ral for Underweight Referring Physician: Glynn Hernández [facility], Encounter Date: 09/19/2018 Diabetic Ophthalmology Refer ral for Diabetic distal sensorimotor polyneuropathy Referring Physician: Glynn Hernández [facility], Encounter Date: 10/20/2018 Program Support Clerk Referral for Anemia for eval of pt with anemia and wt loss Referring Physician: Glynn Hernández [facility], Encounter Date: 10/20/2018 Pain Management Referral for Diabetic distal sensorimotor polyneuropathy for follow up on pt with chronic worsenign neuropathy Referring Physician: Glynn Hernández [facility], Encounter Date: 11/17/2018 Results Created Date Observation Date Name Description Value Unit Range Abnormal Flag Note LastModifiedBy Organization Detail LastModifiedTime 08/22/1908/22/2018 CBC w/ auto diff WBC 8.6 K/mm3 (4.0-1 1.0) Not Available [facility] (Centralized Electronic Ordering - All Locations) Patient Can Go To The Location Of Their Choice, [id number] 08/22/2018 15:48:49 08/22/1908/22/2018 CBC w/ auto diff RBC 3.29 M/mm3 (4.70- 6.10) low Not Available [facility] (Centralized Electronic Ordering - All Locations) Patient Can Go To The Location Of Their Choice, [id number] 08/22/2018 15:48:49 08/22/1908/22/2018 CBC w/ auto diff [...] TEST PERFO RMED USING THE VETO ELECT [employer] CENCE TOTAL PSA ASSAY . PSA VALUE [...] Go To The Location Of Their Choice, [id number] 10/20/2018 20:12:23 10/21/19 19 10/20/2018 HbA1c (hemo [...] Go To The Location Of Their Choice, [id number] 10/20/2018 22:55:14 11/24/1911/23/2018 CBC w/ auto diff [...] Go To The Location Of Their Choice, [id number] 01/03/2019 18:33:34 01/04/2001/03/2019 urina lysis , compl ete sp. gravity 1.018 (1.002 -1.030 ) Not Available [facility] (Centralized Electronic Ordering - All Locations) Patient Can Go To The Location Of Their Choice, 01/03/2019 18:33:34 01/04/2001/03/2019 urina lysis , compl ete urine pH 5.0 (5.0-8 .0) Not Available [facility] (Centralized Electronic Ordering - All Locations) Patient Can Go To The Location Of Their Choice, [id number] 01/03/2019 18:33:34 01/04/2001/03/2019 urina lysis , compl ete urine albumin 1+ (neg) abnormal Not Available [facility] (Centralized Electronic Ordering - All Locations) Patient Can Go To The Location Of Their Choice, [address] 01/03/2019 18:33:34 01/04/2001/03/2019 urina lysis , compl ete urine glucose 2+ (neg) abnormal Not Available [facility] (Centralized Electronic Ordering - All Locations) Patient Can Go To The Location Of Their Choice, [id number] 01/03/2019 18:33:34 01/04/2001/03/2019 urina lysis , compl ete urine ketones NEGATI VE (neg) Not Available [facility] (Centralized Electronic Ordering - All Locations) Patient Can Go To The Location Of Their Choice, 01/03/2019 18:33:34 01/04/2001/03/2019 urina lysis , compl ete urine bilirubin NEGATI VE (neg) Not Available [facility] (Centralized Electronic Ordering - All Locations) Patient Can Go To The Location Of Their Choice, [id number] 01/03/2019 18:33:34 01/04/2001/03/2019 urina lysis , compl ete urine hemoglobin NEGATI VE (neg) Not Available [facility] (Centralized Electronic Ordering - All Locations) Patient Can Go To The Location Of Their Choice, [address] 01/03/2019 18:33:34 01/04/2001/03/2019 urina lysis , compl ete urine nitrite NEGATI VE (neg) Not Available [facility] (Centralized Electronic Ordering - All Locations) Patient Can Go To The Location Of Their Choice, [id number] 01/03/2019 18:33:34 01/04/2001/03/2019 urina lysis , compl ete urine leukocyte NEGATI VE (neg) Not Available [facility] (Centralized Electronic Ordering - All Locations) Patient Can Go To The Location Of Their Choice, [id number] 01/03/2019 18:33:34 01/04/2001/03/2019 urina lysis , compl ete urobilinogen NORMAL mg/dL (norm) Not Available [facility] (Central[facility] Ordering - All Locations) Patient Can Go To The Location Of Their Choice, [id number] 01/03/2019 18:33:34 01/04/2001/03/2019 urina lysis , compl ete urine WBC's 1 /hpf (0-5) Not Available [facility] (Centralized Electronic Ordering - All Locations) Patient Can Go To The Location Of Their Choice, [id number] 01/03/2019 18:33:34 01/04/2001/03/2019 urina lysis , compl ete urine RBC's 2 /hpf (<3) Not Available [facility] (Centralized Electronic Ordering - All Locations) Patient Can Go To The Location Of Their Choice, [id number] 01/03/2019 18:33:34 01/04/2001/03/2019 urina lysis , compl ete mucus SLIGHT /lpf Not Available [facility] (Centralized Electronic Ordering - All Locations) Patient Can Go To The Location Of Their Choice, [id number] 01/03/2019 18:33:34 01/04/2001/03/2019 CMP, serum or plasm a glucose 134 mg/dL (70-99 ) high Not Available [facility] (Centralized Electronic Ordering - All Locations) Patient Can Go To The Location Of Their Choice, [id number] 01/03/2019 18:48:40 01/04/2001/03/2019 CMP, serum or plasm [...] Go To The Location Of Their Choice, [id number] 01/03/2019 18:49:41 01/04/2001/03/2019 CBC w/ auto diff abs. NRBC 0.0 K/mm3 Not Available [facility] (Centralized Electronic Ordering - All Locations) Patient Can Go To The Location Of Their Choice, [id number] 01/03/2019 18:49:41 01/04/2001/03/2019 HbA1c (hemo globi n [...] Go To The Location Of Their Choice, [id number] 01/03/2019 22:21:36 01/04/2001/03/2019 HbA1c (hemo globi n [...] Go To The Location Of Their Choice, [id number] 01/03/2019 22:21:53 01/04/2001/03/2019 hemog lobin A1C, finge rstic k HbA1c 6.7% Not Available In-Office Order Internal Use Only DO Not Attach Compendium DO Not Attach Compendium, Do Not Delete/merge, [id number] 01/03/2019 14:43:15 09/08/19 19 09/08/2018 XR, chest [...] I agree with this report . WSN: [id number] Dictat ed By: Sherwin Malcolm MD Dictat ed Date/T gerri: 11:08 a Review ed By: Henry Slater MD Signed By: Henry Slater MD Signed Date/T gerri: 11:13 am Transc ribed By: ANNY Transc ribed Date/T gerri: 10:39 am Patien t [facility] [address], [place], [address], 09/19/2018 10:45:52 09/14/19 19 09/14/2018 US, abdom [...] nal aorta measur ing 1.8 cm. WSN: [id number] Dictat ed By: Vy Duque MD Dictat ed Date/T gerri: 9:01 am Review ed By: Vy Duque MD Signed By: Vy Duque MD Signed Date/T gerri: 9:01 am Transc ribed By: ANNY Transc ribed Date/T gerri: 8:58 am Patien t Class: Outpat ient [facility] (Outpt Imaging) [address] [place], [address], 09/19/2018 10:45:52 09/30/19 19 09/27/2018 regad enoso n stres s test (PROC ) No observ ation record ed. [facility] Diagnostic [facility] [address] [place], [address], 10/20/2018 14:22:03 11/09/19 19 11/08/2018 CT, chest [...] at the head of pancre as. WSN: [id number] Dictat ed By: Elise Srinivasan MD Dictat ed Date/T gerri: 3:47 pm Review ed By: Elise Srinivasan MD Signed By: Elise Srinivasan MD Signed Date/T gerri: 3:47 pm Transc ribed By: ANNY Transc ribed Date/T gerri: 3:29 pm Patien t Class: Outpat ient [facility] (Outpt Imaging) [address] [place], [address], 11/17/2018 16:12:28 12/14/19 20 12/11/2019 trans -thor acic echoc ardio gram (TTE) (PROC ) No observ ation record ed. [facility] [address] [place], [address], 12/17/2019 22:16:50 Result Notes Documentation Provider Name [...] duct at the head of pancreas. 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 26928600 Completed 05/30/2017 Glynn Hernández MD [address], [address] , [place] [facility] 7 11:34:19 Coronary atherosc lerosis 440321263 Active Not Available [facility] 0 18:23:47 Uncontro lled type 2 diabetes mellitus 557501308 Completed 12/23/2016 STORY: DOMINGO BURROWS RN [phone] /ANA PAULA Hernández MD [address], [place], [address] , [facility] 7 12:06:51 [facility]ia l hyperten kali 38812863 Active Not Available [facility] 0 18:23:47 Gastroes ophageal reflux disease 381625538 Active Not Available [facility] 0 18:23:47 Pure hypercho lesterol emia 079119156 Active Not Available [facility] 0 18:23:47 Mononeur itis 02796631 Active Not Available [facility] 0 18:23:47 Chronic pancreat itis 175632537 Active Not Available [facility] 0 18:23:47 Neuropat hy due to diabetes mellitus 867220060 Active Not Available [facility] 0 18:23:47 Body mass index 25-29 - overweig ht 176383678 Completed 05/30/2017 Glynn Hernández MD [address], [place], [address] , [facility] 7 11:32:22 Type 2 diabetes mellitus 95688257 Completed 12/05/2018 Removal Reason: not specific [facility] 9 09:38:09 Mitral valve regurgit ation 95480479 Active Not Available [facility] 0 18:23:47 Pain of multiple joints 83334049 Active Not Available [facility] 0 18:23:48 Well controll ed type 2 diabetes mellitus 835110967 Completed 01/03/2019 Soledad Peck PA-C [address], [place], [address] , [facility] 9 14:34:20 Pain of shoulder region 03912004 Completed 10/20/2018 Glynn Hernández MD [address] [address], [place], [address] , [facility] 9 14:39:07 Christine talavera Completed 05/30/2017 Glynn Hernández MD [address] [address], [place], [address] , [facility] 7 11:32:31 Serum creatini ne above referenc e range 028765611 Active Not Available [facility] 0 18:23:47 Diabetic distal sensorim otor polyneur opathy Active Not Available [facility] 0 18:23:47 Knee pain Active Not Available [facility] 0 18:23:47 Hyperkal emia 39113737 Completed 11/19/2016 Glynn Hernández MD [address] [address], [place], [address] , [facility] 7 08:25:48 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 WILL TREAT SYMPTOMA TICALLY AND COVER FOR BACTERIA L SOURCE IF PERSISTA NT.; RECORDED 06/28/20 12 3:37PM BY SHERYL PAREDES MA, ANNOTATI ON/GUERLINEEN RENATO Hernández MD [address] [facility] [address], [place], [address] , [facility] 6 10:12:45 Shoulder joint pain 150712478 Completed 201103/04/2014 IMPRESSI ON: PERSISTA NT DESPITE CONSERVA TICVE THERAPY. WILL SEE WHAT ORTHO THINKS.; RECORDED 06/28/20 12 3:37PM BY SHERYL PAREDES MA, ANNOTATI ON/CORDELL Hernández MD [address] [address], [place], [address] , [facility] 6 10:12:45 Cough 34221115 Completed 201102/05/2014 IMPRESSI ON: SYMPTOMS PRESENT JUST UNDER 1 WEEK. WILL TREAT SYMPTOMA TICALLY AND COVER FOR BACTERIA L SOURCE IF PERSISTA NT.; RECORDED 06/28/20 12 3:37PM BY SHERYL PAREDES MA, ANNOTATI ON/CORDELL Hernández MD [address] [address], [place], [address] , [facility] 6 10:12:45 Shoulder joint pain 606700693 Completed 201102/05/2014 IMPRESSI ON: PERSISTA NT DESPITE CONSERVA TICVE THERAPY. WILL SEE WHAT ORTHO THINKS.; RECORDED 06/28/20 12 3:37PM BY SHERYL PAREDES MA, ANNOTATI ON/CORDELL Hernández MD [address] [address], [place], [address] , [facility] 6 10:12:45 Essentia l hyperten kali 01506078 Completed 201202/05/2014 RECORDED 08/07/19 13 2:35PM BY SHERYL PAREDES MA, CATRACHITOATI ON/CORDELL Hernández MD [address] [address], [place], [address] , [facility] 6 10:12:45 Tobacco user 736123559 Completed 201203/04/2014 RECORDED 09/07/19 13 2:45PM BY SHERYL PAREDES MA, ANNOTATI ON/ADDEN DUM Glynn Hernández MD [address], [place], [address] , [facility] 6 10:12:45 Tobacco user [id number] Completed 201202/05/2014 RECORDED 09/07/19 13 2:45PM BY SHERYL PAREDES MA, ANNOTSARAN ON/CORDELL Hernández MD [address], [place], [address] , [facility] 6 10:12:45 History of clinical finding in subject 493254938 Completed 201203/08/2014 RECORDED 09/07/19 13 2:45PM BY SHERYL PAREDES MA, ANNOTATI ON/ADDAMBER Hernández MD [address] [facility] [address], [place], [address] , [facility] 6 10:12:45 Follow-u p encounte r Completed 201203/04/2014 RECORDED 03/16/20 13 11:54AM BY ELEAZAR OAKES MA, ANNOTSARAN ON/CORDELL Hernández MD [address] [facility] [address], [place], [address] , [facility] 6 10:12:45 Follow-u p encounte r Completed 201202/05/2014 RECORDED 03/16/20 13 11:54AM BY ELEAZAR OAKES MA, ANNOTATI ON/CORDELL Hernández MD [address] [facility] [address], [place], [address] , [facility] 6 10:12:45 Influenz a vaccine needed 42642739608 06 Completed 201203/04/2014 RECORDED 04/06/20 13 1:37PM BY LAKSHMI STEARNS MA, OFFICE VISIT Glynn Hernández MD [address] [facility] [address], [place], [address] , [facility] 6 10:12:45 Influenz a vaccine needed 11690266387 06 Completed 201202/05/2014 RECORDED 04/06/20 13 1:37PM BY LAKSHMI STEARNS MA, OFFICE VISIT Glynn Hernández MD [address] [facility] [address], [place], [address] , [facility] 6 10:12:45 Abdomina l pain 18483089 Completed 201203/04/2014 IMPRESSI ON: HAS RISK FACTORS FOR GASTRITI S. WILL START PPI EMPIRICA LLY WHILE WAITING FOR GI F/U.; RECORDED 04/10/20 13 3:36PM BY LAKSHMI STEARNS MA, ANNOTSARAN ON/ADDEN RENATO Hernández MD [address] [facility] [address], [place], [address] , [facility] 6 10:12:45 Adult health examinat ion Completed 201203/04/2014 IMPRESSI ON: WILL UPDATE IMMUNIZA TION STATUS AND SCREEN BASED ON RISK FACTORS. REGULAR DENTAL CARE AND SEATBELT USE ADVISED. DISTRACT ED DRIVING DISCUSSE D. COLON CANCER SCREENIG N UTD. PROSTATE CANCER SCREENIN G TAILORED BASED ON RISK FACTORS. ; RECORDED 04/10/20 13 3:36PM BY LAKSHMI STEARNS MA, SAMMY ON/CORDELL Hernández MD [address] [facility] [address], [place], [address] , [facility] 6 10:12:45 Abdomina l pain 57841092 Completed 201202/05/2014 IMPRESSI ON: HAS RISK FACTORS FOR GASTRITI S. WILL START PPI EMPIRICA LLY WHILE WAITING FOR GI F/U.; RECORDED 04/10/20 13 3:36PM BY LAKSHMI STEARNS MA, SAMMY ON/CORDELL Hernández MD [address] [facility] [address], [place], [address] , [facility] 6 10:12:45 Adult health examinat ion Completed 201202/05/2014 IMPRESSI ON: WILL UPDATE IMMUNIZA TION STATUS AND SCREEN BASED ON RISK FACTORS. REGULAR DENTAL CARE AND SEATBELT USE ADVISED. DISTRACT ED DRIVING DISCUSSE D. COLON CANCER SCREENIG N UTD. PROSTATE CANCER SCREENIN G TAILORED BASED ON RISK FACTORS. ; RECORDED 04/10/20 13 3:36PM BY LAKSHMI STEARNS MA, CATRACHITOATI ON/CORDELL Hernández MD [address] [facility] [address], [place], [address] , [facility] 6 10:12:45 Type 2 diabetes mellitus without complica tion 583996442 Completed 201303/04/2014 RECORDED 08/10/19 14 11:00AM BY ELEAZAR OAKES MA, SAMMY ON/CORDELL Hernández MD [address] [facility] [address], [place], [address] , [facility] 6 10:12:45 Laborato ry procedur e performe d 657372592 Completed 201303/04/2014 RECORDED 08/10/19 14 10:59AM BY ELEAZAR OAKES MA, SAMMY ON/CORDELL Hernández MD [address] [address], [place], [address] , [facility] 6 10:12:45 Mononeur itis of lower limb Completed 201303/04/2014 RECORDED 08/10/19 14 11:00AM BY ELEAZAR OAKES MA, SAMMY ON/CORDELL Hernández MD [address] [facility] [address], [place], [address] , [facility] 6 10:12:45 Type 2 diabetes mellitus without complica tion 645006024 Completed 201302/05/2014 RECORDED 08/10/19 14 11:00AM BY ELEAZAR OAKES MA, SAMMY ON/CORDELL Hernández MD [address], [place], [address] , [facility] 6 10:12:45 Laborato ry procedur e performe d 150267203 Completed 201302/05/2014 RECORDED 08/10/19 14 10:59AM BY ELEAZAR OAKES MA, SAMMY KELSEY/CORDELL Hernández MD [address], [place], [address] , [facility] 6 10:12:45 Mononeur itis of lower limb Completed 201302/05/2014 RECORDED 08/10/19 14 11:00AM BY ELEAZAR OAKES MA, SAMMY ON/CORDELL Hernández MD [address] [facility] [address], [place], [address] , [facility] 6 10:12:45 Lipoma 65624045 Completed 201303/04/2014 IMPRESSI ON: MOST LIKELY DIAGNOSI S. REASSURA NCE PROVIDED . IF CHANGES OR BECOMES UNCOMFOR TABLE WILL EVALUATE FURTHER. ; RECORDED 10/12/19 14 12:56PM BY LAKSHMI STEARNS MA, SAMMY ON/CORDELL Hernández MD [address] [facility] [address], [place], [address] , [facility] 6 10:12:45 Lipoma 96410560 Completed 201302/05/2014 IMPRESSI ON: MOST LIKELY DIAGNOSI S. REASSURA NCE PROVIDED . IF CHANGES OR BECOMES UNCOMFOR TABLE WILL EVALUATE FURTHER. ; RECORDED 10/12/19 14 12:56PM BY LAKSHMI STEARNS MA, SAMMY KELSEY/CORDELL Hernández MD [address], [place], [address] , [facility] 6 10:12:45 Renewal of prescrip tion Completed 201303/04/2014 RECORDED 11/16/19 14 1:29PM BY LAKSHMI STEARNS MA, SAMMY ON/CORDELL Hernández MD [address] [facility] [address], [place], [address] , [facility] 6 10:12:45 Pleural effusion [id number] Completed 201303/04/2014 IMPRESSI ON: WORSE SINCE IN THE HOSPITAL 2 WEEKS AGO. GAVE HIM CHOICE OF ER OR SEEING PULMONAR Y NEXT WEEK. HE WOULD LIKE TO WAIT. HE WILL GO TO ER IF ANY FEVERS, ANY WORSENIN G PAIN.; RECORDED 11/16/19 14 2:08PM BY GLYNN Macias MD, SAMMY ON/CORDELL Hernández MD [address] [facility] [address], [place], [address] , [facility] 6 10:12:45 Uncontro lled type 2 diabetes mellitus [id number] Completed 201302/05/2014 IMPRESSI ON: BASED ON HOME MEASUREM ENTS CONTROL IS INADEQUA TE. WILL MAXIMIZE METFORMI N DOSE AND RECHECK LABS.; RECORDED 11/16/19 14 1:29PM BY LAKSHMI STEARNS MA, SAMMY ON/CORDELL Hernández MD [address] [facility] [address], [place], [address] , [facility] 7 12:06:51 Renewal of prescrip tion Completed 201302/05/2014 RECORDED 11/16/19 14 1:29PM BY LAKSHMI STEARNS MA, SAMMY KELSEY/CORDELL Hernández MD [address] [facility] [address], [place], [address] , [facility] 6 10:12:45 Pleural effusion [id number] Completed 201302/05/2014 IMPRESSI ON: WORSE SINCE IN THE HOSPITAL 2 WEEKS AGO. GAVE HIM CHOICE OF ER OR SEEING PULMONAR Y NEXT WEEK. HE WOULD LIKE TO WAIT. HE WILL GO TO ER IF ANY FEVERS, ANY WORSENIN G PAIN.; RECORDED 11/16/19 14 2:08PM BY GLYNN Macias MD, ANNOTATI ON/CORDELL Hernández MD [address] [facility] [address], [facility] [place], [address] , [facility] 6 10:12:45 Pneumoni a [id number] Completed 201303/08/2014 IMPRESSI ON: RADIOLOG IST READ STATES THERE MAY STILL BE CONSOLID ATION IN LUNG. PULMONAR Y TO REASSESS NEXT WEEK; RECORDED 11/16/19 14 1:34PM BY LAKSHMI STEARNS MA, OFFICE VISIT Glynn Hernández MD [address] [facility] [address], [facility] [place], [address] , [facility] 6 10:12:45 Pneumoni a [id number] Completed 201303/04/2014 IMPRESSI ON: RADIOLOG IST READ STATES THERE MAY STILL BE CONSOLID ATION IN LUNG. PULMONAR Y TO REASSESS NEXT WEEK; RECORDED 01/10/20 14 5:46PM BY GLYNN Macias MD, ANNOTATI ON/CORDELL Hernández MD [address] [facility] [address], [facility] [place], [address] , [facility] 6 10:12:45 Chronic kidney disease stage 3 985387665 Active 2016 Not Available [facility] 0 18:23:47 Bilatera l tinnitus 36738467394 02 Active 2017 Not Available [facility] 0 18:23:47 Sensorin eural hearing loss 29797282 Active 2017 Not Available [facility] 0 18:23:47 Albuminu charlie 637909618 Active 2018 Not Available [facility] 0 18:23:47 Dilatati on of aorta 41616504 Active 2018 1.8 cm abdomina l Not Available [facility] 0 18:23:47 Steatoti c liver disease 201949960 Active 2018 Not Available [facility] 0 18:23:47 Recurren t major depressi on 91346112 Active 2018 Not Available [facility] 0 18:23:47 Renal disorder due to type 2 diabetes mellitus 055836299 Active 2018 Not Available [facility] 0 18:23:48 Narrow angle of anterior chamber of left eye 97260939721 668282 Active 2018 Not Available [facility] 0 18:23:47 Nuclear cataract 19714778 Active 2018 Not Available [facility] 0 18:23:48 Aortic root dilatati on 329673759 Active 2019 Not Available [facility] 0 18:23:47 Noncompl iance with medicati on regimen 158038716 Active 2020 Glynn Hernández MD [address] [address], [place], [address] , [facility] 1 22:01:23 Notes:Some problems listed i n Documents: #[id number], #[id number], #[id number], #[id number], #[id number], #[id number], #[id number], #[id number] could not be added to this patient's chart. Please review these documents and add these problems to the patient's chart manually as needed. Problem Notes None recorded. Procedures Surgical History Date Name Laterality Status Provider Name and Address Organization Details Recorded Time 12/11/19 20 Echo transthoracic completed Glynn Hernández MD [address], [address], [facility] 12/17/2019 22:15:25 01/16/20 19 iridotomy completed Glynn Hernández MD [address], [address], [facility] 01/31/2019 10:16:14 01/04/20 19 Diabetic Foot Exam (Monofilament) completed [facility] 01/03/2019 14:22:39 10/31/19 19 angiography of coronary artery completed Glynn Hernández MD [address] [facility], [place], [address], [facility] 11/17/2018 16:23:33 09/28/19 19 radionuclide imaging of perfusion of myocardium under exercise stress completed Glynn Hernández MD [address] [facility], [place], [address], [facility] 10/02/2018 14:15:32 10/16/19 17 Colonoscopy completed Lakshmi Stearns MA [facility] 11/18/2016 11:20:22 03/11/20 16 Stress Test completed Glynn Hernández MD [address] [facility], [place], [address], [facility] 03/21/2016 10:16:26 11/05/19 15 Echo Transthoracic completed Glynn Hernández MD [address] [place] [address], [address], [facility] 11/07/2014 17:34:46 09/25/19 15 CABG completed Glynn Hernández MD [address] [facility] [address] [facility], [place], [address], [facility] 09/29/2014 12:48:27 01/23/20 12 Imaging, cardiac cath completed Glynn Hernández MD [address] [facility] [address] [place] [address], [address], [facility] 09/17/2014 09:24:50 01/23/20 12 Cardiac Surgery completed Glynn Hernández MD [address] [place] [address], [address], [facility] 10/20/2018 14:20:26 06/24/20 06 Colonoscopy completed Lakshmi Stearns MA [facility] 06/13/2014 11:12:06 01/23/20 01 Cardiac Surgery completed Lakshmi Stearns MA [facility] 02/24/2016 13:01:28 Tonsillectomy completed Lakshmi Stearns [place] [facility] 02/24/2016 13:01:28 Orthopedic Surgery completed Lakshmi Stearns MA [facility] 02/24/2016 13:01:28 Imaging Results None recorded. Procedure Notes None recorded. Medical Equipment None Reported. Allergies Allergen ID Allergen Name Allergen Category Reaction Reaction Severity Criticality Documentation Date Start Date Code Code System Note Provider Name and Address Organization Details Recorded Time 22280 codeine medicatio n other Not available Not available 05/18/20212013 2670 RxNorm Aimee Courtney rojas, [facility] 1 10:42:54 4674 codeine sulfate medicatio n tachycard ia Not available Not available 02/05/20142013 51710 RxNorm Glynn Hernández MD [address] [facility] [address], [place], [address], [facility] 7 11:31:43 Medications Name Sig Start Date [...] order, pt needs this script sent to [facility] while waiting 2 weeks for mail order [...] 14 11:05AM BY ELEAZAR OAKES MA, OFFICE VISIT;[facility] [place] [place] 07/26/13 IN EVENING Not Available Not Available [...] Available Not Available Not Available Fluarix Quad 0709-5184 (PF) 60 mcg (15 mcg x 4)/0.5 [...] Updated DateTime 9 175.9 cm 18.2 kg/m2 49916.4 5 g 65 /min 96.8 [degF] 98 % 98 % 101/69 mm[Hg] Lakshmi Stearns MA [facility] 9 10:24:44 Date Recorded Body height Body mass index (BMI) Body weight Heart rate Oxygen saturation Oxygen saturation in Arterial blood by Pulse oximetry Body temperature Systolic And Diastolic Provider Name and Address Organization Details Last Updated DateTime 9 175.9 cm 20.2 kg/m2 55138.7 5 g 79 /min 97 % 97 % 98.3 [degF] 108/69 mm[Hg] Lakshmi Stearns MA [facility] 9 14:10:15 Date Recorded Body height Body mass index (BMI) Body weight Heart rate Oxygen saturation Oxygen saturation in Arterial blood by Pulse oximetry Body temperature Systolic And Diastolic Provider Name and Address Organization Details Last Updated DateTime 9 175.9 cm 21.3 kg/m2 33237.8 9 g 60 /min 100 % 100 % 98.7 [degF] 112/74 mm[Hg] Lakshmi Stearns MA [facility] 9 15:41:31 Date Recorded Body height Body temperature Oxygen saturation Oxygen saturation in Arterial blood by Pulse oximetry Heart rate Body mass index (BMI) Body weight Systolic And Diastolic Provider Name and Address Organization Details Last Updated DateTime 9 175.9 cm 97.7 [degF] 98 % 98 % 60 /min 21.3 kg/m2 41961.8 9 g 103/67 mm[Hg] Lakshmi Steanrs MA [facility] 9 11:13:44 Date Recorded Body height Body mass index (BMI) Body weight Heart rate Oxygen saturation Oxygen saturation in Arterial blood by Pulse oximetry Systolic And Diastolic Provider Name and Address Organization Details Last Updated DateTime 9 175.9 cm 22 kg/m2 45231.9 6 g 68 /min 96 % 96 % 126/80 mm[Hg] Margaret [facility]u [facility] 9 14:26:55 Social History Question Answer Notes LastModified by Organizat ion Details LastModified Time Tobacco Smoking Status Former Smoker quit 2008 Not Available [facility] 05/27/2020 03:36:41 Do You Have An Advance Directive? Yes HCP/ Girlfriend-Sh justine [id number] Information not available 05/27/2020 Is Blood Transfusion Acceptable In An Emergency? Yes [id number] Information not available 05/27/2020 What Is Your Level Of Caffeine Consumption? None [id number] Information not available 05/27/2020 How Much Tobacco Do You Chew? None [id number] Information not available 05/27/2020 What Type Of Diet Are You Following? CARDIAC [id number] Information not available 05/27/2020 Which Illicit Or Recreational Drugs Have You Used? None [id number] Information not available 05/27/2020 Live Alone Or [...] Of Your Most Recent Tobacco Screening? 01/03/2019 [id number] Information not available 05/27/2020 How Many Children Do You Have? 2 Sons [id number] Information not available 05/27/2020 Seat Belts Used Routinely Yes Information not available 06/13/2014 Are You Sexually Active? Yes [id number] Information not available 05/27/2020 Smoke Alarm In Home Yes Information not available 02/24/2016 At What Age Did You Start Smoking Tobacco? 20 [id number] Information not available 05/27/2020 Are You Passively Exposed To Smoke? Yes Information not available 02/24/2016 How Much Tobacco Do You Smoke? 0.5 PPD [id number] Information not available 05/27/2020 Do You Use Sunscreen Routinely? Yes [id number] Information not available 05/27/2020 How Many Years Have You Smoked Tobacco? 33 [id number] Information not available 05/27/2020 Sex: Unknown Functional Status Question Answer Note LastModified by Organizat ion Details LastModified Time What is your level of alcohol consumption? Occasional wine [id number] Information not available 05/27/2020 Are you currently employed? No [id number] Information not available 05/27/2020 Are you able to care for yourself independently? Yes [id number] Information not available 05/27/2020 What is your occupation? retired [employer] [facility] Information not available 06/13/2014 What is your exercise level? None [id number] Information not available 05/27/2020 Mental Status None [...] N Breast Cancer N mrsa exposure N Hypothyroidism N Depression N COPD N Lung Disease N Developmental or Behavioral Disorders N Defects or Inherited Disease N Breast Problem N Anesthesia Complications N [...] high-dose, trivalent, PF 4 completed Not Available [facility] 04/18/2020 18:23:48 Influenza, high-dose, trivalent, PF 5 completed Not Available [facility] 04/18/2020 18:23:48 Influenza, split virus, quadrivalent, preservative 6 completed Not Available [facility] 04/18/2020 18:23:48 Influenza, MDCK, quadrivalent, PF 8 completed Aimee xie [facility] 05/18/2021 10:43:09 Influenza, MDCK, quadrivalent, PF 9 completed Aimee xie [facility] 05/18/2021 10:43:09 Influenza, split virus, quadrivalent, PF 7 completed Not Available [facility] 08/11/2019 02:22:11 Tdap 9 completed Not Available [facility] 08/11/2019 02:21:49 influenza, seasonal, intradermal, preservative free 2 completed Not Available [facility] 04/18/2020 18:23:48 influenza, seasonal, intradermal, preservative free 3 completed Not Available [facility] 04/18/2020 18:23:48 Tdap 8 completed Not Available [facility] 04/18/2020 18:23:48 pneumococcal conjugate PCV 7 8 completed Not Available [facility] 04/18/2020 18:23:48 pneumococcal polysaccharide PPV23 4 completed Not Available [facility] 04/18/2020 18:23:48 Past Encounters Encounter ID Performer Location Encounter Start Date Encounter Closed Date Diagnosis/Indication Diagnosis SNOMED-CT Code Diagnosis ICD10 Code Diagnosis IMO Codes Diagnosis Note [id number] autoEComm erce [address] [facility] [place] [address] 06/05/2012 00:00:00 [id number] autoEComm erce [address] [facility] [place] [address] 08/07/2012 00:00:00 [id number] autoEComm erce [address] [facility] [place] [address] 11/15/2012 00:00:00 [id number] autoEComm erce [address] [facility] [place] [address] 04/06/2013 00:00:00 [id number] autoEComm erce [address] [facility] [place] [address] 07/04/2013 00:00:00 [id number] autoEComm erce [address] [facility] [place] [address] 08/10/2013 00:00:00 [id number] autoEComm erce [address] [facility] [place], [place] [address] 10/03/2013 00:00:00 [id number] autoEComm erce [address] [facility] [place], [place] [address] 11/15/2013 00:00:00 [id number] autoEComm erce [address] [facility] [place], [place] [address] 12/14/2013 00:00:00 [id number] Glynn Hernández MD Main Office [address] [facility] [address] [place], [place] [address] 03/08/2014 15:04:54 03/08/2014 15:59:04 Uncontrolled type 2 diabetes mellitus 936778529 Pt has lab orders from November and will have them done myah. Ophtho exam utd. Neuropathy due to diabetes mellitus 742420521 Not responding to gabapentin . Will try Lyrica and titrate as tolerated to goal pain control. Essential hypertension 38166249 Well controlled . Continue current regimen. [id number] Glynn Hernández MD Main Office [address] [facility] [address] [place], [place] [address] 06/13/2014 10:49:55 06/13/2014 12:08:08 Adult health examination 398582650 Immunizati on status utd, will screen based on risk factors. Colon cancer screening utd, prosate cancer screening deffered secondary to low risk. Regular dental and ophtho care advised as well as seatbelt and sunscreen use. Distracted driving discussed. Advance directives in place. Body mass index 25-29 - overweight 603376895 Neuropathy due to diabetes mellitus 692095241 Not responding to gabapentin or lyrica. Will consult neuro for further evalution and treatment recommenda tions. Coronary atherosclerosis 011409959 Asymptomat ic with goal risk factor control. Cntinue current regimen. Uncontroll ed type 2 diabetes mellitus 566827944 Pt has lab orders from November and will have them done myah. Ophtho exam utd. Anemia 332524496 Has been stable. Will follow. [id number] Glynn Hernández MD Main Office [address] [facility] [address] [place] [address] 10/21/2014 14:44:22 10/21/2014 15:41:20 Coronary atherosclerosis 326606151 Asymptomat ic post CABG. Will reassess risk factor control. Cntinue current regimen for now. Essential hypertension 59153411 Well controlled . Continue current regimen. Anemia 295820117 Has been stable. Will follow. Uncontroll ed type 2 diabetes mellitus 469366424 [id number] Glynn Hernández MD Main Office [address] [facility] [address] [place] [address] 01/29/2015 11:15:31 01/29/2015 12:14:47 Essential hypertension 62288545 Well controlled . Continue current regimen. Pain of mu ltiple joints 13824923 Has risk for vitamin D deficiency which may be contributi ng to some of his pain along with neuropathy . Neuropathy due to diabetes mellitus 976024104 Not responding to gabapentin or Lyrica. Had EMG pending with neuro. Will see if Cymbalta helps with his discomfort . Well contr olled type 2 diabetes mellitus 144919167 [id number] Glynn Hernández MD Main Office [address] [facility] [address] [facility] [address] 06/16/2015 10:57:24 06/16/2015 11:56:38 Adult health examination 318149838 Z00.00 Immunizati on status utd, will screen based on risk factors. Colon cancer screening utd, prosate cancer screening deferred secondary to low risk. Regular dental and ophtho care advised as well as seatbelt and sunscreen use. Distracted driving discussed. Advance directives in place. Neuropathy due to diabetes mellitus 692581943 E11.40 Working with neuro to gain better control. Current regimen is affording some relief. Coronary atherosclerosis 532581892 I25.10 Asymptomat ic with goal risk factor control. Continue current regimen. Uncontroll ed type 2 diabetes mellitus 951662333 E11.65 Will reassess control. Ophtho exam utd. Anemia 174537758 D64.9 Has been stable. Will follow. Chronic pancreatitis 235 298837 K86.1 Pain of oulder region 92286309 M25.511 Will call if persistent /worse to try PT and consider PMR/ortho eval. [id number] Glynn Hernández MD Main Office [address] [facility] [address] [place] [address] 10/16/2015 11:29:30 10/16/2015 12:21:59 Type 2 diabetes mellitus 80062275 E11.9 Very well controlled . Will decrease sulfonylur ea dose and see if still needed. Essential hypertension 80136132 I10 Well controlled . Continue current regimen. 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 Will be following up with cards in next few months. Claudication 781387035 I 73.9 Start with PVR and if abnormal try pletal and consult vascular. Neuropathy due to diabetes mellitus 781028459 E11.40 Working with neuro to gain better control. Current regimen is affording some relief. [id number] Richy Peck PA-C Main Office [address] [place] [address] 01/27/2016 12:58:25 01/27/2016 14:09:31 Knee pain 21465012 M25.561 pt states [place] [id number] Richy Peck PA-C Main Office [address] [facility] [address] [place] [address] 02/24/2016 12:49:07 02/24/2016 14:41:36 Knee pain 13496414 M25.561 no sig. help c PT -- will refer to [facility] - ? needs synvisc vs. check CT/MRI - needs arthroscop y? Hyperkalemia 87542826 E8 7.5 Serum crea tinine above reference range 449228577 R79.89 Coronary atherosclerosis 798268976 I25.812 seen by carmen. 8.1 - checked lipids, resumed statin recently - pending stress test in 2 weeks -- d/t above knee pain, ? tire changer aircraft to pharmacolo gic stress test [id number] Richy Peck PA-C Main Office [address] [facility] [address] [place] [address] 03/10/2016 10:30:28 03/10/2016 11:26:16 Pure hypercholesterolemia 537178102 E78.0 Essential hypertension 15784526 I10 bp stable on BB and off acei x 2 wks Neuropathy due to diabetes mellitus 803968155 E11.40 f/u c neurologis t Type 2 bertram betes mellitus 97173644 E11.22 25 minute office visit with greater than 50% of the visit face-to-fa ce with the patient and/or family providing counseling and/or coordinati on of care. Arterioscl erosis of coronary artery bypass graft 620630485 I25.810 [id number] Glynn Hernández MD Main Office [address] [facility] [address] [facility] [place] [address] 05/06/2016 10:51:00 05/06/2016 12:03:15 Neuropathy due to diabetes mellitus 996777964 E11.40 Recalcitra nt to neuropathi c pain meds. Will ask PMR for further management recommenda tions. Essential hypertension 51026271 I10 Better on recheck but not at goal. If Cr stable and K level normal will resume 10mg QD. Pt has appt with Dr. Briseno in 2 weeks. Osteoarthr itis of knee 943974844 M17.11 Ask PMR for considerat ion of injection trial or other treatment options. Hypercholesterolemia 136 38785 E78.2 Reassess since resumtion of statin therapy. [id number] Glynn Hernández MD Main Office [address] [place] [address] 11/18/2016 10:58:00 11/18/2016 12:13:19 Pain of multiple joints 83950070 M25.50 ? if related to establishe d OA diagnosis vs neuropathy vs fibromyosi tis vs reactive arthropath y vs autoimmune phenomenon . Will try another pain managament referral. Diabetic d istal sensorimotor polyneuropathy 587854356 E11.42 Diabetes has been well controlled . Continue current regimen. 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 Continue current regimen. Major depr essive disorder 017512036 F32.9 ? if this is the cause or response to his chronic pain issues. Essential hypertension 72089149 I10 Will follow for now and depending on lab results resume low dose ACEI. [id number] Glynn Hernández MD Main Office [address] [facility] [address] [facility] [address] 12/23/2016 11:27:59 12/23/2016 12:26:20 Essential hypertension 84191904 I10 Will titrate BB and follow. Reluctant to resume ACEI given bump in creatinine that occurred last fall when he was on it. Knee pain 15221312 M25.5 61 M25.562 c/w his neuropathy which seems to be improving with venlafaxin e. Will follow. Unexplaine d weight loss 586040807 R63.4 Screen for thyroid disease and significan t pulmonary pathology. Anemia 803749215 D64.9 Had been stable. Will follow. Major depr essive disorder 192568189 F32.9 Will titrate SNRI dose. Bilateral hearing loss 77363286 H91.93 Becoming problemati c. Pt is vaughn sutton further evaluation and treatment. [id number] Glynn Hernández MD Main Office [address] [facility] [address] [facility] [place] [address] 01/20/2017 13:31:07 01/20/2017 14:20:51 Essential hypertension 99284277 I10 Fair control. Continue current dose for now, Reluctant to resume ACEI given bump in creatinine that occurred last fall when he was on it. Knee pain 80833948 M25.5 61 M25.562 c/w his neuropathy which seems to be improving with venlafaxin e. Will follow. Diabetic d istal sensorimotor polyneuropathy 596939771 E11.42 Diabetes has been well controlled . Will decrease metformin dose. Anemia 770389574 D64.9 Had been stable. Will follow. Primary er ectile dysfunction 460078649 N52.9 Pt requesting rx. Has tolerated well in the past and has no contraindi cations. [id number] Glynn Hernández MD Main Office [address] [address] [place] [address] 04/22/2017 10:31:20 04/22/2017 12:23:20 Needs influenza immunization 938221839 Z23 Diabetic d istal sensorimotor polyneuropathy 705734568 E11.42 Will reduce metformin dose and reassess a1c in 3 months.Wor perla with pain mgmt. Ging to start lamictal and [facility]in [facility] [place] . Essential hypertension 92833957 I10 Will add low dose diuretic for added control and monitor potassium. Screening for malignant neoplasm of prostate 188160557 Z12.5 Check PSA prior to upcoming CAX. [id number] Glynn Hernández MD Main Office [address] [facility] [address] [facility] [place] [address] 05/30/2017 10:57:48 05/30/2017 12:01:29 Adult health examination 543761045 Z00.00 Immunizati on status UTD, shingles advised via local pharmacy. Will screen based on risk factors. Colon cancer screening utd, will check 1 more PSA. Regular dental and ophtho care advised as well as seat belt and sunscreen use. Distracted driving discussed. Advance directives in place. Anemia 077666780 D64.9 Pt will d/c iron and folic acid. Will follow counts with these changes. Pure hypercholesterolemia 478905310 E78.00 LDL at goal. Continue current regimen. Well contr olled type 2 diabetes mellitus 964617051 E11.9 Improved control with weight loss. Will wean metformin dosing as long as A1C stays <6. Diabetic d istal sensorimotor polyneuropathy 058268887 E11.42 Essential hypertension 25019112 I10 Well controlled with addition of diuretic. Will continue current regimen. [id number] Glynn Hernández MD Main Office [address] [facility] [address] [place] [address] 08/22/2018 09:57:31 08/22/2018 11:18:46 Essential hypertension 46964322 I10 Having orthostati c symptoms, so we'll d/c the diuretic and possibly BB if persistent . Type 2 ebrtram betes mellitus 08686438 E11.9 Fair control. Off of meds. Will defer resuming meds until lab work is done. Unintentio nal weight loss 127308827 R63.4 Based on comorbidit ies needs eval for possible occult malignancy wilian pancreatic /lung. Paresthesia 79287956 R20 .2 Chronic pancreatitis 235 100049 K86.1 Chronic ki dney disease stage 3 966597012 N18.[address] Briseno next week. Requires a tetanus booster 840657789 Z23 Administra tion of viral vaccine 14865180 Z23 [id number] Glynn Hernández MD Main Office [address] [facility] [address] [place] [address] 09/19/2018 10:00:58 09/19/2018 11:03:19 Early satiety 312941345 R68.81 With continued weight loss. Will see if insurance will cover high end imaging now for him. Unintentio nal weight loss 771014996 R63.4 Based on comorbidit ies needs eval for possible occult malignancy wilian pancreatic /lung. Anemia 634652356 D64.9 Refer to heme for further eval if stool is negative for occult blood, to GI if positive. Arterioscl erosis of coronary artery bypass graft 267457490 I25.810 Refill requested. Await results of stress testing. Underweight 221543438 R6 3.6 Z68.1 Patients body weight is below the normal range for age (<18.5). Discussed implicatio ns of low weight such as general health, bone health, immune function, iron absorption . [id number] Glynn Hernández MD Main Office [address] [place] [address] 10/20/2018 13:46:55 10/20/2018 14:53:24 Adult health examination 690925666 Z00.00 Immunizati on status UTD, Shingrix advised via local pharmacy. Will screen based on risk factors. Routine colon and prostate cancer screenign are utd. Regular dental and ophtho care advised as well as seat belt and sunscreen use. Distracted driving discussed. Advance directives in place. Varicella vaccination 68 937604 Z23 Diabetic d istal sensorimotor polyneuropathy 934405294 E11.42 Pt will f/u with ophtho myah. Recurrent major depression 41990029 F33.1 Venlafaxin e not working for mood or pain, so will try mirtazepin e to help with sleep and appetite. Anemia 655086011 D64.9 Insurance wont' cover abdominal imaging for evaluation of this issue and weight loss so will ask GI to consider endoscopie s even though stool cards were negative. Purpura an d/or petechiae 543062210 R23.3 Screen for vasculitis /coagulopa thy Coronary atherosclerosis 567543034 I25.10 Having cardiac cath done next week for abnormal stress test. [id number] Glynn Hernández MD Main Office [address] [place] [address] 11/17/2018 15:20:46 11/17/2018 16:39:55 Essential hypertension 72482349 I10 Well controlled on BB. Will monitor with weight. Recurrent major depression 13642828 F33.1 Mood, appetite and sleep seem to be improving with mirtazapin e. Will titrate and d/c venlafaxin e. Continue slow venlafaxin e wean. Diabetic d istal sensorimotor polyneuropathy 406304191 E11.42 Complicate d, and refractory to numerous nerve modulating medication s. Will re establish care with pain mgmt. Will continue current metformin dosing while monitoring corie function. Will ask Soledad to help with management . Anemia 033124286 D64.9 On procrit via renal. Will follow counts. [id number] Glynn Hernández MD Main Office [address] [facility] [address] [place] [address] 12/19/2018 10:36:36 12/19/2018 11:38:37 Essential hypertension 56159219 I10 Well controlled on BB. Will monitor with weight. Recurrent major depression 08609912 F33.1 Mood, appetite and sleep seem to be improving with mirtazapin e. Will titrate and d/c venlafaxin e. Continue slow venlafaxin e wean. Anemia 068456080 D64.9 On procrit via renal. Will follow counts. Bilateral glaucoma [id number] [id number] 8444438 H40.9 per pt report will need repair for closed angle disease. Will request records. Uncontroll ed type 2 diabetes mellitus 489620798 E11.65 Metformin dosing recently titrated. Has appt with VM upcoming. [id number] Henry Romero MD Main Office [address] [facility] [address] [place] [address] 01/03/2019 14:16:54 01/03/2019 15:36:52 Uncontrolled type 2 diabetes mellitus 644338370 E11.65 HGA1c today again is down to [...] CGM log. Diabetic d istal sensorimotor polyneuropathy 613051356 E11.42 Pt. has jason with pain management . Chronic ki dney disease stage 3 238222293 N18.3 F/u with nephrologi st as scheduled. 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 644281803 E11.22 Health Concerns Section Related Observation LastModified by Organization Detai ls LastModified Time None Recorded Concern Status LastModified by Organization Details LastModified Time None Recorded Advance Directives Directive Y: HCP/ Girlfriend-Santa Payers Insurance Date Sequence Insurance Name Policy Number Policy Adorno Covered Member ID Adorno Member ID Guarantor Name 12/14/2018 2 [place] [facility] Quentin Lara [id number] Quentni Lara 03/28/2020 1 [facility] ([facility] [place] [id number] Quentin Lara [id number] Quentin Lara 12/14/2018 2 [place] [facility] Quentin Lara [id number] Quentin Lara Notes Date Note Type Note [...] Glynn Hernández MD [address], [place], [address], [facility] 09/19/2018 13:08:48 9 text/html Generic HPI TemplateReported by PatientHere for a physical. Seeing ophtho regularly, no dentist. Glynn Hernández MD [address], [place], [address], [facility] 10/20/2018 14:55:32 9 text/html Hypertension F/UReported by [...] in his chronic neuropathic pain. Mely xie, [facility] 12/05/2018 09:38:48 9 text/html Hypertension F/UReported by [...] and eating better. Glynn Hernández MD [address] [address], [place], [address], [facility] 12/19/2018 11:43:59 9 text/html ROS as noted [...] lbs since 2011. Soledad Peck PA-C [address] [address], [place], [address], [facility] 01/03/2019 16:08:47
--- OUTSIDE RECORDS SUMMARY | 2025-05-08 09:01 | XMS_ITS | Patient Health Record ---
[facility] Address [address] [place] [address] Care Team Providers Care Bilingual Office Assistant Name Role Phone Regulo CONKLIN, [facility] Primary Care Provider Ni Almanza Unavailable [phone] Allergies Allergen (clinical drug ingredient) Drug/Non Drug [...] Problem Acquired hammer toe of right foot (537673538745783 5) Other hammer toe(s) (acquired), right foot (M20.41) Active confirmed Response to treatment, Improvement Problem Acquired hammer toe of left foot (493773470056392 3) Other hammer toe(s) (acquired), left foot (M20.42) Active confirmed Response to treatment, Improvement Problem Polyneuropathy due to type 2 diabetes mellitus (266871375) Type 2 diabetes mellitus with diabetic polyneuropathy (E11.42) Active confirmed Problem 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) Active confirmed Response to treatment- Improvement Problem Neuropathic ulcer of right foot (disorder) (367275839468418 02) Neuropathic ulcer of right foot, 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) Active confirmed Response to treatment Vital Signs Blood pressure diastolic 65 mm Hg 03/07/2025 Height 5ft 11in in 03/07/2025 Blood pressure systolic 126 mm Hg 03/07/2025 Weight 155 lbs 03/07/2025 BMI 21.62 kg/m2 03/07/2025 Procedures Procedure Date Ordered Date Performed Result Body Sit e 10731-GBIJZPC NAIL, 6 OR MORE 07/12/2024 N/A 44687-YCDY SKIN LESIONS, OVER 4 07/12/2024 N/A 54754-UVXXBZW NAIL, 6 OR MORE 11/02/2024 N/A 32189-GPUN SKIN LESIONS, OVER 4 11/02/2024 N/A 71733-NFEJSFK NAIL, 6 OR MORE 02/20/2025 N/A 31488-UHDJLBQ SKIN/TISSUE 02/20/2025 N/A 13510-CEYP SKIN LESIONS, OVER 4 02/20/2025 N/A 51407-YLJGUAA SKIN/TISSUE 03/07/2025 N/A Encounters Encounter Location Date Provider Diagnosis [address] [address] 07/12/2024 Ni Leone Other hammer toe(s) (acquired), right foot M20.41 ; Other hammer toe(s) (acquired), left foot M20.42 ; Type 2 diabetes mellitus with diabetic polyneuropathy E11.42 and Tinea unguium B35.[address] [address] 11/02/2024 Ni Leone Type 2 diabetes mellitus with diabetic polyneuropathy E11.42 ; Neuropathic ulcer of right foot, limited to breakdown of skin L97.511 and Tinea unguium B35.[address] [address] 11/16/2024 Ni Leone Neuropathic ulcer of right foot, limited to breakdown of skin L97.[address] [address] 02/20/2025 Ni Leone Type 2 diabetes mellitus with diabetic polyneuropathy E11.42 ; Neuropathic ulcer of right foot, limited to breakdown of skin L97.511 and Tinea unguium B35.[address] [address] 03/07/2025 Ni Leone Neuropathic ulcer of right foot with fat layer exposed L97.[address] [address] 03/07/2025 Ni Leone Assessments Encounter Date Diagnosis (ICD Code) Assessment Notes Treatment Notes Treatment Clinical Notes Section Notes 07/12/2024 Other hammer toe(s) (acquired), right foot (ICD-10 - M20.41) Patient Educated with: DIABETIC FOOT CARE INSTRUCTIONS. pdf (DIABETIC FOOT CARE INSTRUCTIONS. pdf) 07/12/2024 Other hammer toe(s) (acquired), left foot (ICD-10 - M20.42) 11/02/2024 Neuropathic ulcer of right foot, limited [...] mellitus with diabetic polyneuropathy (ICD-10 - E11.42) 02/20/2025 Neuropathic ulcer of right foot, limited [...] X ray : Foot, right 3V 12/31/2022 92116-SRPLJYQ NAIL, 6 OR MORE 07/12/2024 27532-VRUHJBK NAIL, 6 OR MORE 11/02/2024 60716-AAHYLUH NAIL, 6 OR MORE 02/20/2025 51224-BZPQUSO SKIN/TISSUE 10/07/2023 51142-KMIADRF SKIN/TISSUE 04/30/2021 38190-BZHOPTZ SKIN/TISSUE 08/03/2021 79215-XXKKFNA SKIN/TISSUE 02/20/2025 14464-UILSZGP SKIN/TISSUE 03/07/2025 35421-RQVV SKIN LESIONS, OVER 4 07/12/20 24 06464-PKXB SKIN LESIONS, OVER 4 02/21/20 25 40137-IYDW SKIN LESIONS, OVER 4 11/03/19 25 87184-QXOJ SKIN LESIONS, 2 TO 4 08/03/19 22 04198-HSYJ SKIN LESIONS, 2 TO 4 04/30/20 21 23427-NHCG SKIN LESIONS, 2 TO 4 02/26/20 21 47416-DBCHUZJG OF HEMATOMA/FLUID 022 Next Appt Details Provider Name:Ni Lee perla, 06/06/2025 09:15:00 AM, [address] [place], [address], Insurance Providers Payer Name Payer Address Payer Phone Subscriber Number Group Number Insured Name Patient Relationship to Insured Coverage Start Date Coverage End Date Medicare National [employer] [address] [place] [address] [id number] Quentin Lara Self - patient is the insured [facility] [address] [place] [address] [phone] [id number] Quentin Lara Self - patient is [...] kidney sones, 3 day stay 01/23 04/15 [facility] ER- Coundn't get up/lanre d -KidneyLiver failure-swelling/Infection ICU few weeks -rehab 6wks 05/29/2021 [facility] - pneumonia 06/2013-1-14
--- OUTSIDE RECORDS SUMMARY | 2025-05-08 09:01 | XMS_ITS | Encounter Summary ---
Author Organization [facility] Address [address] [place] [address] Care Team Providers Care Orthopedic Shoe Fitter Name Role Phone Rufino Rajput MD Primary Care Provider [phone] Francisco J Galeana MD Unavailable Orion Rodriguez MD Unavailable [phone] Kelby Celaya MD Unavailable [phone] System, Provider Not In Unavailable Unavaila ble Encounter Details Date Type Department Care Team (Late st Contact Info) Description 04/16/2024 Scanned Document [facility] [place] [address] Orion Rodriguez MD [address] [place] [address] Social History Tobacco Use Types Packs/Day Years [...] on filedocumented in this encounter Care Teams Orthopedic Shoe Fitter Relationship Specialty Start Date End Date Rufino Rajput MD [facility] [place], [place] PCP - General Internal Medicine 12/27/23 Francisco J Galeana MD [facility] [place], [place] Cardiology-Scan 01/06/24 Orion Rodriguez MD [address] [place] [address] Surgery, Orthopedic 01/10/24 Kelby Celaya MD [address] [place] [address] Physician Nephrology 01/10/24 System, Provider Not In 01/10/24 documented as of this encounter
--- OUTSIDE RECORDS SUMMARY | 2025-05-08 09:01 | XMS_ITS | Encounter Summary ---
Author Organization [facility] Address [address] [place] [address] Care Team Providers Care Real Estate Closing Coordinator Name Role Phone Rufino Rajput MD Primary Care Provider Francisco J Galeana MD Unavailable Orion Rodriguez MD Unavailable [phone] Kelby Celaya MD Unavailable [phone] System, Provider Not In Unavailable Unavaila ble Encounter Details Date Type Department Care Team (Late st Contact Info) Description 01/18/2024 Scanned Document [facility] [address] [place] [address] Dee Zhong [address] [facility] [address] [place] [address] Social History Tobacco Use Types Packs/Day Years [...] on filedocumented in this encounter Care Teams Real Estate Closing Coordinator Relationship Specialty Start Date End Date Rufino Rajput MD [facility] [place], [place] PCP - General Internal Medicine 12/27/23 Francisco J Galeana MD [facility] [place], [place] Cardiology-Scan 01/06/24 Orion Rodriguez MD [address] [place] [address] Surgery, Orthopedic 01/10/24 Kelby Celaya MD [address] [place] [address] [address] [place] [address] Physician Nephrology 01/10/24 System, Provider Not In 01/10/24 documented as of this encounter
--- OUTSIDE RECORDS SUMMARY | 2025-05-08 09:01 | XMS_ITS | Clinical Summary ---
Author Organization [facility] Address [address] [place] [address] Phone Care Team Providers Care Wood Inspector Name Role Phone Rufino Rajput MD Primary Care Provider [phone] Allergies Active Allergy Reactions Criticality Noted Date Comments Codeine 07/21/2020 Medications calcitrioL (ROCALTROL) 0.25 mcg capsule Take 1 Capsule by mouth every other day. Active insulin aspart (NovoLOG) 100 unit/mL injection Inject as directed. Sliding scale Active insulin detemir (LEVEMIR) 100 unit/mL injection Inject 17 Units into the skin at bedtime. Active pancrelipase, Yqs-Moqf-Lgvz, (CREON) 24,000-76,000 -120,000 unit capsule Take 2 [...] Diagnosed Date Coronary artery disease invo lving resighini coronary artery of resighini heart without angina pectoris 03/01/2025 Assessment & [...] socks for now. Aneurysm of ascending aorta ([facility] V24) 2019 Overview (04/24/2024): 11/2019 aortic root [...] medical treatment. Will repeat lipid profile. Diabetes ([facility] V24, CMS/[facility] V28) 07/21/2020 Overview (04/24/2024): Last Assessment & Plan: Suggest him to call [place] office to get a new primary care [...] Description 03/08/2025 10:00 AM EDT Ancillary Procedure [facility] [address] [place] [address] Coronary artery disease involving resighini coronary artery of resighini heart without angina pectoris 03/01/2025 8:40 AM EDT Office Visit [facility] [address] [place] [address] Emelina Haines, RAMAKRISHNA Coronary artery disease involving resighini coronary artery of resighini heart without angina pectoris (Primary Dx); Hyperlipidemia LDL goal <70; Primary hypertension; Lower extremity edema; Aneurysm of ascending aorta without rupture ([facility] V24) 02/05/2025 8:44 AM EDT - 02/05/2025 11:59 PM EDT Hospital Encounter [facility] Interventional Radiology [address] [place] [phone] Thrombocytopenia (CMS/[facility] V24); Anemia due to stage 3b chronic [...] Description 07/19/2025 9:30 AM EST Office Visit [facility] Hematology Oncology [address] [place] [phone] Radha Lambert PA [address] [place] [address] Health Maintenance Due Date Last Done Comments [...] 10:25 AM EDT Coronary artery disease involving resighini coronary artery of resighini heart without angina pectoris ECG 12-LEAD Routine 03/01/2025 10:08 AM EDT Coronary artery disease involving resighini coronary artery of resighini heart without angina pectoris B-TYPE NATRIURETIC PEPTIDE [...] (03/08/2025 10:25 AM EDT) Left [facility] [place] 6.0 cm CV PACS Left At[facility] Major [place] 6.0 cm CV PACS [place] Area Sys [...] ECG 12 lead (03/01/2025 10:08 AM EDT) [facility] Ventricular Rate ECG 60 BPM GEMUSE Atrial Rate 60 BPM GEMUSE P-R Interval 184 ms GEMUSE QRS Duration 100 ms GEMUSE Q-T Interval 448 ms GEMUSE QTc 448 ms GEMUSE P Wave [place] 70 degrees GEMUSE R [place] 80 degrees GEMUSE T [place] 67 degrees GEMUSE ECG Interpretation Normal sinus rhythm Normal ECG When compared with ECG of 30-JUL-2024 08:59, Nonspecific T wave abnormality no longer evident in Anterolateral leads Confirmed by Alicia BROWN, BUBBA ([id number]) on 03/28/2025 10:40:32 AM GEMUSE 03/01/2025 8:51 AM EDT 03/28/2025 10:40 AM EDT Emelina Haines NP ECG ORDERABLES Edited Result - Final GEMUSE * (ABNORMAL) B-type natriuretic peptide (03/01/2025 9:47 AM EDT) BNP 229(H) <=100 pcg/mL LAB CHEMISTRY METHOD 03/01/2025 11:25 AM EDT [facility] Blood Venous blood specimen / Unknown Venipuncture / Unknown 03/01/2025 9:47 AM EDT 03/01/2025 10:28 AM EDT us Emelina Haines NICU RN LAB BLOOD ORDERABLES Final Resu lt [facility] [address] [place] [address], [place] [phone] * IR Bx and Asp Bone Marrow [...] Signed Date: 02/06/2025 09:07 ET Workstation ID: [id number] Transcribed By: Self Edit Transcribed Date: 02/06/2025 [...] of fentanyl administered during the procedure. Scanner: [employer] [address] Dose reduction technique: AEC [...] of fentanyl administered during the procedure. Scanner: [employer] [address] Dose reduction technique: AEC [...] Signed Date: 02/06/2025 09:07 ET Workstation ID: [id number] Transcribed By: Self Edit Transcribed Date: 02/06/2025 [...] is no increase in the proportion of XV63-euyaemjd blasts (less than 1%). Note: The flow cytometric findings are not diagnostic of a B cell or T cell lymphoproliferative disorder. The proportion of DA31-qmpktjsy blasts is not increased. Although phenotypic maturation of granulocytes and monocyte appears generally retail sales advisor, please note that myeloid disorders cannot be reliably excluded by flow cytometry. Correlation with the morphologic findings in the accompanying bone marrow aspirate and biopsy specimen is recommended/ See separate report ([id number]) for details. SPECIMEN: Bone Marrow ([id number]) VIABILITY: 95.9 TOTAL CELL YIELD: 58.3 x106/mL [...] are 75.3% of total and show generally retail sales advisor immunophenotypic maturation. - Monocytic cells are 6.2% of total and show generally retail sales advisor immunophenotypic maturation. - CD45 dim cells are 2.7% of total. CD34+ Blasts are not increased (less than 1%). A small number of LO63-bgbnzmxr cells with expression of CD10, CD19 and CD38 and very low side light scatter, compatible with hematogones is noted. Antibodies (27 markers): CD2, CD3, CD4, CD5, CD7, CD8, CD10, CD11b, CD13, CD14, CD15, CD16, CD19, CD20, CD33, CD34, CD38, CD45, CD56, CD64, CD117, CD123, CD200, HLA-DR, Molena, Lambda, TCR??. 02/06/2025 5:56 PM EDT [facility] Disclaimer This test was [...] clinical laboratory testing. 02/06/2025 5:56 PM EDT [facility] Bone Marrow Specimen from bone marrow obtained by aspiration / Unknown 02/05/2025 10:47 AM EDT 02/05/2025 1:35 PM EDT Radha BOCANEGRA LAB BLOOD ORDERABLES Final Re sult [facility] [address] [place] [address], [place] [phone] * Bone marrow exam (02/05/2025 10:47 AM EDT) Cytogenetics Report, Addendum This case was sent to [facility], [address], (CLIA #[id number]) for Cytogenetic studies. Their diagnosis is as [...] Electronic Signature Electronic Signature Escobar Crespo, Ph.D., [facility] - Leanne Sneed M.D., Ph.D. [facility]. Report Date: 02/13/2025 05:31:41 PM ET (See scanned copy for full report) 12:44 PM EDT [facility] Addendum electronically signed by Escobar Kincaid MD on 02/14/2025 at 1:01 PM Addendum 2 NOTE: Although not pathogenic mutations/copy number alterations were detected, there was a single variant of unknown significance (NOTCH1 [id number] [id number]>C , a missense mutation, with a variant allele frequency of 33.3%) was detected. 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 This case was sent to [facility], [address], (CLIA #[id number]) for Myeloid Disorders (DNA Only) studies. Their diagnosis is as follows: [facility] Comprehensive Myeloid Disorders (DNA Only) Results Summary [...] 02/26/2025 via secure text. 12:44 PM EDT [facility] Addendum electronically signed by [...] and no increase in the proportion of JC23-evkeqhdi blasts. Reticulin staining shows no significant increase [...] considered. Karyotype and molecular testing (NGS, [facility] Comprehensive Myeloid Disorders) is pending, addendum to follow. CBC (most recent CBC available in [facility] from 07/30/2024): WBC 7.8 k/uL, Hemoglobin 12.4 [...] biopsy specimen to assess the proportion of WG65-nvirtkhh blasts in the tissue. There are scattered YE57-ivanaxtv mononuclear cells and endothelial cells identified. The proportion of MH57-hvdvdxsd mononuclear cells does not appear increased. Flow Cytometry ([id number]) - No monotypic B cell population identified. - Most of the lymphocytes are CD3-positive T cells including CD4-positive and CD8-positive subsets without diagnostic phenotypic aberrancy. - There is no increase in the proportion of LP98-cjbhzxbh blasts (less than 1%). Note: The flow cytometric findings are not diagnostic of a B cell or T cell lymphoproliferative disorder. The proportion of LU23-loskzedr blasts is not increased. Although phenotypic maturation of granulocytes and monocyte appears generally retail sales advisor, please note that myeloid disorders cannot be [...] are 75.3% of total and show generally retail sales advisor immunophenotypic maturation. - Monocytic cells are 6.2% of total and show generally retail sales advisor immunophenotypic maturation. - CD45 dim cells are 2.7% of total. CD34+ Blasts are not increased (less than 1%). A small number of TC63-fgxyvpxg cells with expression of CD10, CD19 and CD38 and very low side light scatter, compatible with hematogones is noted. Antibodies (27 markers): CD2, CD3, CD4, CD5, CD7, CD8, CD10, CD11b, CD13, CD14, CD15, CD16, CD19, CD20, CD33, CD34, CD38, CD45, CD56, CD64, CD117, CD123, CD200, HLA-DR, Molena, Lambda, TCR??. This test was developed and [...] performed with appropriate controls. 12:44 PM EDT [facility] Comment The findings were discussed with SAHRA Charles by Dr. Derick Kincaid on 02/12/2025. NGS testing was requested in order to further assess for the possibility of a clonal cause for this patient's cytopenias. 12:44 PM EDT [facility] Gross Description A. Bone Marrow Aspirate, : Labeled bone marrow aspirate smears . Eleven slides are prepared. One slide subsequently is stained for iron. Two slides are stained with Hawkins's giemsa. Approximately 4 ml of bone marrow aspirate is received in a purple top tube and submitted to [facility], flow cytometry lab, [place], [place] for flow cytometric studies. Additionally, 3ml of bone marrow aspirate is received in a purple top tube and approximately 6ml of bone marrow aspirate is received in two green top tubes and submitted in to [facility], [place], [place], for cytogenetic studies. B. Bone Marrow [...] 2-clot, multiple pieces TS 12:44 PM EDT [facility] Disclaimer Unless otherwise specified, all tissue is 10% NB formalin fixed and paraffin embedded. NOTE: The immunohistochemical tests and in situ hybridization tests were developed and their performance characteristics were determined by [facility]. They have not been [...] laboratory testing. (controls appropriate) 12:44 PM EDT [facility] Bone Marrow Specimen from bone marrow obtained by aspiration / Unknown 02/05/2025 10:47 AM EDT 02/05/2025 11:16 AM EDT Bone marrow specimen (specimen) Specimen from bone marrow obtained by biopsy / Unknown 02/05/2025 10:47 AM EDT 02/05/2025 11:16 AM EDT us Radha BOCANEGRA LAB PATHOLOGY ORDERABLES Edit ed Result - Final [facility] [address] [place] [address], [place] [phone] * POCT Glucose, blood (02/05/2025 10:28 AM EDT) Only the most recent of2 resultswithin the time period is included. [facility] Glucose POCT 94 70 - 100 mg/dL 02/05/2025 10:29 AM EDT [facility] Blood Capillary blood specimen / Unknown 02/05/2025 10:28 AM EDT 02/05/2025 10:30 AM EDT us Generic Provider Poct LAB POINT OF CARE TEST DOCKED DEVICE UNSOLICITED RESULTS Final Result Performing Organization Address [facility]/ZIP Co de Phone Number [facility] [address] [place] [address], [place] [phone] * Lipid panel with reflex to direct LDL (07/30/2024 9:57 AM EST) [facility] Cholesterol 127 0 - 200 mg/dL LAB CHEMISTRY METHOD 07/30/2024 4:32 PM [facility] Triglycerides 140 0 - 150 mg/dL LAB CHEMISTRY METHOD 07/30/2024 4:32 PM [facility] HDL 68 >=40 mg/dL LAB CHEMISTRY METHOD 07/30/2024 4:32 PM [facility] LDL Calculated 31 0 - 100 mg/dL LAB CHEMISTRY METHOD 07/30/2024 4:32 PM [facility] VLDL Cholesterol Rick 28 mg/dL LAB CHEMISTRY METHOD 07/30/2024 4:32 PM [facility] Non HDL Chol. (LDL+VLDL) 59 <145 mg/dL LAB CHEMISTRY METHOD 07/30/2024 4:32 PM [facility] Chol/HDL Ratio 1.9 0.0 - 4.4 LAB CHEMISTRY METHOD 07/30/2024 4:32 PM [facility] Blood Venous blood specimen / Unknown Venipuncture / Unknown 07/30/2024 9:57 AM EST 07/30/2024 9:57 AM EST us Francisco J Galeana MD LAB BLOOD ORDERABLES Final Resul t [facility] [address] [place] [address], [place] [phone] * (ABNORMAL) Comprehensive metabolic panel (07/30/2024 9:57 AM EST) Sodium 138 133 - 145 mmol/L LAB CHEMISTRY METHOD 07/30/2024 4:48 PM [facility] Comment:Results verified by repeat testing Potassium 4.5 3.5 - 5.5 mmol/L LAB CHEMISTRY METHOD 07/30/2024 4:48 PM [facility] Chloride 107 96 - 110 mmol/L LAB CHEMISTRY METHOD 07/30/2024 4:48 PM [facility] CO2 27 21 - 32 mmol/L LAB CHEMISTRY METHOD 07/30/2024 4:48 PM [facility] Anion Gap 4 3 - 11 LAB CHEMISTRY METHOD 07/30/2024 4:48 PM [facility] Glucose 68(L) 70 - 100 mg/dL LAB CHEMISTRY METHOD 07/30/2024 4:48 PM [facility] BUN 28(H) 5 - 25 mg/dL LAB CHEMISTRY METHOD 07/30/2024 4:48 PM [facility] Creatinine 2.44(H) 0.70 - 1.30 mg/dL LAB CHEMISTRY METHOD 07/30/2024 4:48 PM [facility] eGFR 28(L) >=60 mL/min/1. 73m2 LAB CHEMISTRY METHOD 07/30/2024 4:48 PM [facility] Comment:Calculation based on the Chronic Kidney Disease Epidemiology Collaboration (CKD-EPI) equation refit without adjustment for race. BUN/Creatinine Ratio 11.5 LAB CHEMISTRY METHOD 07/30/2024 4:48 PM [facility] Calcium 9.8 8.5 - 10.5 mg/dL LAB CHEMISTRY METHOD 07/30/2024 4:48 PM [facility] AST (SGOT) 28 10 - 42 unit/L LAB CHEMISTRY METHOD 07/30/2024 4:48 PM [facility] ALT (SGPT) 43 10 - 60 unit/L LAB CHEMISTRY METHOD 07/30/2024 4:48 PM [facility] Alkaline Phosphatase 84 42 - 121 unit/L LAB CHEMISTRY METHOD 07/30/2024 4:48 PM [facility] Total Protein 7.0 6.0 - 8.0 g/dL LAB CHEMISTRY METHOD 07/30/2024 4:48 PM [facility] Albumin 3.9 3.2 - 5.0 g/dL LAB CHEMISTRY METHOD 07/30/2024 4:48 PM [facility] Total Bilirubin 0.3 0.0 - 1.4 mg/dL LAB CHEMISTRY METHOD 07/30/2024 4:48 PM [facility] Blood Venous blood specimen / Unknown Venipuncture / Unknown 07/30/2024 9:57 AM EST 07/30/2024 9:57 AM EST us Radha BOCANEGRA LAB BLOOD ORDERABLES Final Re sult [facility] [address] [place] [address], * Hemoglobin A1c (01/11/2024) Hemoglobin A1C 0.0 % Comment:No Interpretation Blood Venous blood specimen / Unknown Historical Provider LAB BLOOD ORDERABLES Gertrude l Result * Urine Albumin Creatinine Ratio (01/10/2024) HM Urine Albumin Creatinine Ratio Abstracted Historical Provider HEALTH MAINTENANCE Final Result from Last 3 Months or Most Recently Relevant to Health Maintenance Insurance MEDICARE [facility] Advance Directives Documents on File Type Date Recorded Patient Training Program Assistant Expl anation Health Care Decision (hx) 06/04/2021 [...] (hx) 06/04/2021 CONRADO LOPEZ DIRECTIVE Care Teams Wood Inspector Relationship Specialty Start Date End Date Rufino Rajput MD [address] [place] [address] PCP - General Internal Medicine 01/28/21
--- OUTSIDE RECORDS SUMMARY | 2025-05-08 09:01 | XMS_ITS | Clinical Summary ---
Author Organization [facility] Address [address] [place] [address] Phone Care Team Providers Care Printing Manager Name Role Phone Rufino Rajput MD Primary Care Provider [phone] Allergies Active Allergy Reactions Criticality Noted Date [...] 1 (one) time each day Active pancrelipase, Foc-Qsbp-Gmup, (CREON) 65715-[address] units capsule Take 1 capsule by mouth [...] 4 (severe) (HCC),Anemia in chronic kidney disease 69001 Units IJ Once 04/29/2025 04/29/2025 E nded [...] 11/15/2013 Overview (04/24/2024): STORY: DOMINGO BURROWS RN [id number] APAULA IMPRESSION: BASED ON HOME MEASUREMENTS CONTROL IS [...] ( severe disability ) on ; initial [place]: 13 on 01/27/17 Glaucoma 09/04/2021 09/04/2021 H/O: [...] Clinical Support [facility] [address] [phone] Chronic kidney disease, stage 4 (severe) (HCC) (Primary Dx); Anemia in chronic kidney disease 04/29/2025 2:00 PM EDT [facility] [address] [phone] Kelby Celaya MD Chronic kidney disease, stage 4 (severe) (HCC) (Primary Dx); Anemia in chronic kidney disease; Type 2 diabetes mellitus with diabetic chronic kidney disease, 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) 04/21/2025 Orders Only [facility] [address] [phone] Karen Plascencia ARNP Stage 3b chronic kidney disease (HCC); Essential hypertension; Anemia in chronic kidney disease; Renal osteodystrophy 04/14/2025 Refill [facility] [address] [place] [address] Kelby Celaya MD 03/20/2025 2:15 PM EDT Office Visit [facility] [address] [phone] Kelby Celaya MD Type 2 diabetes mellitus with diabetic chronic kidney disease (HCC) (Primary Dx); Renal osteodystrophy; Chronic kidney disease, stage 4 (severe) (HCC) 03/11/2025 Refill [facility] [address] [place] [address] Kelby Celaya MD 03/05/2025 11:30 AM EDT Office Visit [facility] [address] [facility] [address] [place] [phone] Kelby Celaya MD Chronic kidney disease, stage 4 (severe) (HCC) (Primary Dx); Renal osteodystrophy 02/10/2025 Refill [facility] [address] [facility] [address] [place] [address] Kelby Celaya MD from Last 3 Months [...] Clinical Support [facility] [address] [phone] 06/12/2025 8:30 AM EST Office Visit [facility] [address] [phone] Karen Plascencia ARNP [address] [address] Health Maintenance Due Date Last [...] time period is included. Comment: Note: [facility] Comment: CBC met reflex criteria for review of peripheral smear by medical laboratory professional. Automated results were confirmed by smear review. 04/24/2025 3:14 PM EDT 04/24/2025 Kelby Celaya MD LAB BLOOD ORDERABLES Final Re sult Performing Organization Address City/[facility]/ZIP Co de Phone Number [facility] [address] [place] [address] * Microscopic Examination (04/24/2025 3:14 PM EDT) Only the most recent of2 resultswithin the time period is included. WBC, Urine None seen 0 - 5 /hpf [facility] RBC, Urine None seen 0 - 2 /hpf [facility] Squamous Epithelial, Urine None seen 0 - 10 /hpf [facility] Casts None seen None seen /lpf [facility] Bacteria, Urine None seen None seen/Few [facility] 04/24/2025 3:14 PM EDT 04/24/2025 Kelby Celaya MD LAB MICROBIOLOGY - GENERAL OR DERABLES Final Result Performing Organization Address City/[facility]/ZIP Co de Phone Number [facility] [address] [place] [address] * (ABNORMAL) Iron Panel (Fe, TIBC, TSAT) (04/24/2025 3:14 PM EDT) Only the most recent of2 resultswithin the time period is included. TIBC 247(L) 250 - 450 ug/dL [facility] UIBC 130 111 - 343 ug/dL [facility] Iron 117 38 - 169 ug/dL [facility] Iron Saturation (TSat) 47 15 - 55 % [facility] Blood Venous blood / Unknown 04/24/2025 3:14 PM EDT 04/24/2025 Kelby Celaya MD LAB BLOOD ORDERABLES Final Re sult Performing Organization Address City/[facility]/ZIP Co de Phone Number [facility] [place] [address] [place] [address] * (ABNORMAL) Urine Protein / creatinine ratio (04/24/2025 3:14 PM EDT) Only the most recent of2 resultswithin the time period is included. Creatinine, Ur 53.7 Not Estab. mg/dL [facility] Protein, Ur 39.8 Not Estab. mg/dL [facility] Urine Protein/Creati nine Ratio 741(H) 0 - 200 mg/g creat [facility] Urine Urine specimen obtained by clean catch procedure / Unknown 04/24/2025 3:14 PM EDT 04/24/2025 Karen MARKHAM LAB URINE ORDERABLES Final Result Performing Organization Address City/[facility]/ZIP Co de Phone Number [facility] [place] [address] [place] [address] * (ABNORMAL) Urine Albumin / Creatinine Ratio (04/24/2025 3:14 PM EDT) Only the most recent of2 resultswithin the time period is included. Albumin, Urine 154.2 Not Estab. ug/mL [facility] Albumin/Creatin ine Ratio 287(H) 0 - 29 mg/g creat [facility] Comment: Normal: 0 - 29 Moderately increased: 30 - 300 Severely increased: >300 Urine Urine specimen obtained by clean catch procedure / Unknown 04/24/2025 3:14 PM EDT 04/24/2025 us Karen Temo [facility] LAB URINE ORDERABLES Final Result [facility] [address] [place] [phone] * Vitamin D 25 Hydroxy (04/24/2025 3:14 PM EDT) Only the most recent of2 resultswithin the time period is included. Vitamin D, 25-OH, Total 37.7 30.0 - 100.0 ng/mL [facility] Comment: Vitamin D deficiency has been defined by the Haines of Medicine and an Endocrine Society practice guideline as a level of serum 25-OH vitamin D less than 20 ng/mL (1,2). The Endocrine Society went on to further define vitamin D insufficiency as a level between 21 and 29 ng/mL (2). 1. IOM ([place]aines of Medicine). 2010. Dietary reference intakes for [...] BLOOD ORDERABLES Final Re sult [facility] [address] [place] [address] * (ABNORMAL) Urinalysis with microscopic (04/24/2025 3:14 PM EDT) Only the most recent of2 resultswithin the time period is included. Specific [place], Urine 1.017 1.005 - 1.030 [facility] [phone] pH Urine 6.0 5.0 - 7.5 [facility] Color, Urine Yellow Yellow [facility] Appearance Urine Clear Clear [facility] [place] WBC Esterase Urine Negative Negative [facility] Protein, Ur 1+(A) Negative/Tra ce [facility] Glucose, Ur 2+(A) Negative [facility] Ketones, Urine Negative Negative [facility] [place] [phone] Blood Urine Negative Negative [facility] Bilirubin Urine Negative Negative [facility] [place] Urobilinogen Urine 0.2 0.2 - 1.0 mg/dL [facility] Nitrite, Urine Negative Negative [facility] [place] Microscopic Examination See below: [facility] Comment:Microscopic was ethan cated and was performed. Urine Urine specimen obtained by clean catch procedure / Unknown 04/24/2025 3:14 PM EDT 04/24/2025 Kelby Celaya MD LAB URINE ORDERABLES Final Re sult Performing Organization Address City/[facility]/ZIP Co de Phone Number [facility] [address] [place] [address] * (ABNORMAL) CBC (04/24/2025 3:14 PM EDT) Only the most recent of2 resultswithin the time period is included. WBC 7.2 3.4 - 10.8 x10E3/uL [facility] RBC 2.97(L) 4.14 - 5.80 x10E6/uL [facility] Hemoglobin 9.3(L) 13.0 - 17.7 g/dL [facility] Hematocrit 28.5(L) 37.5 - 51.0 % [facility] MCV 96 79 - 97 fL [facility] MCH 31.3 26.6 - 33.0 pg [facility] MCHC 32.6 31.5 - 35.7 g/dL [facility] RDW 12.9 11.6 - 15.4 % [facility] Platelets 85(LL) 150 - 450 x10E3/uL [facility] Blood Venous blood / Unknown 04/24/2025 3:14 PM EDT 04/24/2025 Karen MARKHAM LAB BLOOD ORDERABLES Final Result [facility] [address] [place] [address] * (ABNORMAL) PTH, intact (04/24/2025 3:14 PM EDT) Only the most recent of2 resultswithin the time period is included. PTH 136(H) 15 - 65 pg/mL [facility] Blood Venous blood / Unknown 04/24/2025 3:14 PM EDT 04/24/2025 [facility] LAB BLOOD ORDERABLES Final Result Performing Organization Address City/[facility]/ZIP Co de Phone Number [facility] [place] [address] [place] [address] * Magnesium (04/24/2025 3:14 PM EDT) Only the most recent of2 resultswithin the time period is included. Magnesium 1.8 1.6 - 2.3 mg/dL [facility] Blood Venous blood / Unknown 04/24/2025 3:14 PM EDT 04/24/2025 [facility] LAB BLOOD ORDERABLES Final Result Performing Organization Address [facility] Co de Phone Number [facility] [address] [place] [address] * (ABNORMAL) Renal function panel (04/24/2025 3:14 PM EDT) Only the most recent of2 resultswithin the time period is included. Glucose 211(H) 70 - 99 mg/dL [facility] BUN 54(H) 8 - 27 mg/dL [facility] Creatinine 3.39(H) 0.76 - 1.27 mg/dL [facility] eGFR CKD-EPI CR 2020 19(L) >59 mL/min/1.7 3 [facility] BUN/Creatinine Ratio 16 10 - 24 [facility] Sodium 138 134 - 144 mmol/L [facility] Potassium 4.7 3.5 - 5.2 mmol/L [facility] Chloride 106 96 - 106 mmol/L [facility] Bicarbonate (CO2) 16(L) 20 - 29 mmol/L [facility] Calcium 8.6 8.6 - 10.2 mg/dL [facility] Albumin 4.1 3.9 - 4.9 g/dL [facility] Phosphorus 6.3(H) 2.8 - 4.1 mg/dL [facility] Blood Venous blood / Unknown 04/24/2025 3:14 PM EDT 04/24/2025 Karen Temo MARKHAM LAB BLOOD ORDERABLES Final Result [facility] [address] [place] [address] * Hepatitis C antibody (03/05/2025 12:46 PM EDT) Hep C Virus Ab Non Reactive Non Reactive [facility] [place] [phone] Comment: HCV antibody alone does not differentiate between previously resolved infection and active infection. Equivocal and Reactive HCV antibody results should be followed up with an HCV RNA test to support the diagnosis of active HCV infection. Blood Venous blood / Unknown 03/05/2025 12:46 PM EDT 03/05/2025 Kelby Celaya MD LAB BLOOD ORDERABLES Final Re sult [facility] [place] [address], [address] [place] [address] * (ABNORMAL) [place]/Lambda free LT chains w/ratio, Serum (03/05/2025 12:46 PM EDT) Free [place] Lt Chains, S 70.0(H) 3.3 - 19.4 mg/L [facility] Free [place]ambda Lt Chains, S 62.5(H) 5.7 - 26.3 mg/L [facility] Free [place]/Lambda Ratio 1.12 0.26 - 1.65 [facility] Blood Venous blood / Unknown 03/05/2025 12:46 PM EDT 03/05/2025 Kelby Celaya MD LAB BLOOD ORDERABLES Final Re sult Performing Organization Address City/[facility]/ZIP Co de Phone Number [facility] [address] [place] [address] * Hepatitis B core antibody, IgM (03/05/2025 12:46 PM EDT) Hep B Core IgM Negative Negative [facility] Blood Venous blood / Unknown 03/05/2025 12:46 PM EDT 03/05/2025 Kelby Celaya MD LAB BLOOD ORDERABLES Final Re sult Performing Organization Address [facility] Co de Phone Number [id number] [address], [address] [place] [address] * (ABNORMAL) Hepatitis B Surface Antibody (03/05/2025 12:46 PM EDT) Hepatitis B Surface Ab 5.8(L) Immunity>1 0 mIU/mL [facility] [place] Comment: Status of Immunity Anti-HBs Level Inconsistent with Immunity 0.0 - 10.0 Consistent with Immunity >10.0 Blood Venous blood / Unknown 03/05/2025 12:46 PM EDT 03/05/2025 Kelby Celaya MD LAB BLOOD ORDERABLES Final Re sult [facility] [address], [address] [place] [address] * Hepatitis B Surface Antigen (03/05/2025 12:46 PM EDT) Hep B Surface Ag Negative Negative [facility] Blood Venous blood / Unknown 03/05/2025 12:46 PM EDT 03/05/2025 Kelby Celaya MD LAB BLOOD ORDERABLES Final Re sult [facility] [address], [address] [place] [address] * C3 Complement (03/05/2025 12:46 PM EDT) Pathologist [facility] C3 Complement 95 82 - 167 mg/dL [facility] Blood Venous blood / Unknown 03/05/2025 12:46 PM EDT 03/05/2025 Kelby Celaya MD LAB BLOOD ORDERABLES Final Re sult [facility] [place] [address] [place] [address] * C4 Complement (03/05/2025 12:46 PM EDT) Pathologist [facility] C4 Complement 15 12 - 38 mg/dL [facility] Blood Venous blood / Unknown 03/05/2025 12:46 PM EDT 03/05/2025 Kelby Celaya MD LAB BLOOD ORDERABLES Final Re sult [facility] [place] [address] [place] [address] * ZACHARY Panel (03/05/2025 12:46 PM EDT) ZACHARY Negative Negative [facility] Blood Venous blood / Unknown 03/05/2025 12:46 PM EDT 03/05/2025 us Kelby Celaya MD LAB BLOOD ORDERABLES Final Re sult [facility] [place] [address] [place] [address] * Protein electrophoresis, serum (03/05/2025 12:46 PM EDT) Pathologist [facility] Total Protein 6.1 6.0 - 8.5 g/dL [facility] Albumin 3.5 2.9 - 4.4 g/dL [facility] Vjeyc-8-Xinofmoy 0.2 0.0 - 0.4 g/dL [facility] [phone] Rnigz-2-Bbjznrih 0.6 0.4 - 1.0 g/dL [facility] Beta Globulin 0.8 0.7 - 1.3 g/dL [facility] Gamma Globulin in Serum 1.0 0.4 - 1.8 g/dL [facility] M-Ady Serum Not Observed Not Observed g/dL [facility] [phone] Globulin, Total 2.6 2.2 - 3.9 g/dL [facility] A/G Ratio 1.3 0.7 - 1.7 [facility] Please note Comment [facility] Comment: Protein electrophoresis scan will follow via computer, mail, or insurance clerk delivery. PDF . [facility] Blood Venous blood / Unknown 03/05/2025 12:46 PM EDT 03/05/2025 us Kelby Celaya MD LAB BLOOD ORDERABLES Final Re sult [facility] [address] [place] [address] * Ferritin (03/05/2025 12:46 PM EDT) Ferritin 56 30 - 400 ng/mL [facility] Blood Venous blood / Unknown 03/05/2025 12:46 PM EDT 03/05/2025 us Kelby Celaya MD LAB BLOOD ORDERABLES Final Re sult Performing Organization Address [facility] de Phone Number [facility] [place] [address] [place] [address] * Ultrasound renal limited (02/08/2025 7:47 AM [...] mg/dl PVNMA 07/22/2020 us [facility] LAB [id number] LICITED RESULTS Final Result PVNMA from Last 3 Months or Most Recently Relevant to Health Maintenance [place] [address] [place] [address] [place] [address] Medicare Care Teams Printing Manager Relationship Specialty Start Date End Date Rufino Rajput MD [address] [place] [address] PCP - General Internal Medicine 04/06/21
--- OUTSIDE RECORDS SUMMARY | 2025-05-08 09:01 | XMS_ITS | Clinical Summary ---
Author Organization [facility] Address [address] [place] [address] Care Team Providers Care Bpm Developer Name Role Phone Rufino Rajput MD Primary Care Provider [phone] Francisco J Galeana MD Unavailable Orion Rodriguez MD Unavailable [phone] Kelby Celaya MD Unavailable [phone] System, Provider Not In Unavailable Unavaila [...] needed by sublingual route. Active pancrelipase (Creon) [address] Particles Take 1 capsule [...] before surgery). 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 Cardiac clearance scheduled 01/24/24 [...] Vaccine (1 of 2) 12/28/2005 RSV Vaccine 50 years and older and Patients (1 - [...] this topic Medical Devices Implanted Type Area Assistant Manager Trainee Device Identifier Shelf Expiration Date Model / Serial / Lot 620-005 Filler Bone Void 5cc 12.5cc Calcium Slf Stimulan Rpd Cure - [id number] Implanted:Qty : 1 on 02/03/2024 by Orion Rodriguez MD at [facility] Void Filler Right: Foot [employer] - A BTG INT [id number] 03/24/2026 620-005 / / [id number] Procedures Procedure Name Priority Date/Time Associated Diagnosis Comments HEMOGLOBIN A1C WITH ESTIMATED AVERAGE GLUCOSE Routine 01/11/2024 12:22 PM EDT Preop examination Painful orthopaedic hardware (HCC) Acute osteomyelitis of right ankle or foot (HCC) Peripheral polyneuropathy Essential hypertension Pure hypercholesterolemia Coronary artery disease involving tuscarora heart without angina pectoris, unspecified vessel or [...] hypertension Pure hypercholesterolemia Coronary artery disease involving tuscarora heart without angina pectoris, unspecified vessel or [...] 7.4(H) <5.7 % 01/11/2024 8:16 PM EDT [facility] Comment: A1c% Interpretation 5.7 - 6.0 Increase risk of diabetes 6.1 - 6.4 Higher risk of diabetes > or = 6.5 Consistent with diabetes Diabetes Care, 33(Supp 1):S1-S61, 2009 Estimated Average Glucose 166 mg/dL 01/11/2024 8:16 PM EDT [facility] Blood Blood specimen / Unknown 01/11/2024 12:22 PM EDT 01/11/2024 7:01 PM EDT us Kaykay Bailey APRN LAB BLOOD ORDERABLES Final R esult [address] [address], [address] [address] * (ABNORMAL) Basic Metabolic Panel (01/11/2024 12:22 PM EDT) Glucose 231(H) 65 - 99 mg/dL 01/11/2024 7:38 PM [facility] Comment:Fasting: <100 mg/dL, Non-Fasting: <200 mg/dL (ADA 2004) Blood Urea Nitrogen (BUN) 34(H) 8 - 21 mg/dL 01/11/2024 7:38 PM [facility] Creatinine 2.1(H) 0.5 - 1.3 mg/dL 01/11/2024 7:38 PM [facility] eGFR 34(L) >59 01/11/2024 7:38 PM [facility] Comment:CKD-EPI (2020) in mL /min/1.73 sq meters. Sodium 138 136 - 145 mmol/L 01/11/2024 7:38 PM [facility] Potassium 5.2 3.4 - 5.3 mmol/L 01/11/2024 7:38 PM [facility] Chloride 108(H) 98 - 107 mmol/L 01/11/2024 7:38 PM [facility] CO2 19(L) 22 - 33 mmol/L 01/11/2024 7:38 PM [facility] Anion Gap 11 7 - 17 01/11/2024 7:38 PM [facility] Calcium 9.0 8.7 - 10.5 mg/dL 01/11/2024 7:38 PM [facility] BUN/Creatinine Ratio 16 10.0 - 25.0 Ratio 01/11/2024 7:38 PM [facility] Blood (Plasma/Serum) 01/11/2024 12:22 PM EDT 01/11/2024 7:01 PM EDT us Kaykay Bailey PELLETIZER TENDER LAB BLOOD ORDERABLES Final R esult [address] [address], [address] [address] from Last 3 Months or Most Recently Relevant to Health Maintenance Insurance MEDICARE PART A & B Member Subscriber Plan / Payer (Ef fective 2020-Present) Name:Quentin Lara Member ID:[id number] Relation to Subscriber:Self Name:Quentin Lara Subscriber ID:[id number] Payer ID:[id number] Group ID:Not on file Type:Not on file Address: [address] MEDICARE PART A & B Member Subscriber Plan / Payer (Ef fective 2020-) Name:Quentin Lara Member ID:[id number] Relation to Subscriber:Self Name:ScottwendyQuentin Subscriber ID:[id number] Payer ID:[id number] Group ID:Not on file Type:Not on file Address: [address] Advance Directives * Full Code (Latest Code Status on File) Date Activated Date Inactivated Comments 02/03/2024 7:41 AM Care Teams Bpm Developer Relationship Specialty Start Date End Date Rufino Rajput MD [address] [place] [address] PCP - General Internal Medicine 12/27/23 Francisco J Galeana MD [address] [place] [address] Cardiology-Scan 01/06/24 Orion Rodriguez MD [address] [place] [address] [address] [place] [address] Surgery, Orthopedic 01/10/24 Kelby Celaya MD [address] [place] [address] Physician Nephrology 01/10/24 System, Provider Not In 01/10/24
--- OUTSIDE RECORDS SUMMARY | 2025-05-08 09:01 | XMS_ITS | Encounter Summary ---
Author Organization [facility] Address [address] [place] [address] Care Team Providers Care Casting Coordinator Name Role Phone Rufino Rajput MD Primary Care Provider [phone] Francisco J Galeana MD Unavailable Orion Rodriguez MD Unavailable [phone] Kelby Celaya MD Unavailable System, Provider Not In Unavailable Unavaila ble Encounter Details Date Type Department Care Team (Late st Contact Info) Description 04/18/2024 Scanned Document [facility] [address] [place] [address] Dee Zhong [address] [facility] [address] [place] [address] Social History Tobacco Use Types Packs/Day Years [...] on filedocumented in this encounter Care Teams Casting Coordinator Relationship Specialty Start Date End Date Rufino Rajput MD [facility] [place], [place] PCP - General Internal Medicine 12/27/23 Francisco J Galeana MD [facility] [place], [place] Cardiology-Scan 01/06/24 Orion Rodriguez MD [address] [place] [address] Surgery, Orthopedic 01/10/24 Kelby Celaya MD [address] [place] [address] [address] [place] [address] Physician Nephrology 01/10/24 System, Provider Not In 01/10/24 documented as of this encounter
--- OUTSIDE RECORDS SUMMARY | 2025-05-08 09:01 | XMS_ITS | Encounter Summary ---
Author Organization [facility] Address [address] [place] [address] Care Team Providers Care Mechanical Engineering Specialist Name Role Phone Rufino Rajput MD Primary Care Provider [phone] Francisco J Galeana MD Unavailable Orion Rodriguez MD Unavailable [phone] Kelby Celaya MD Unavailable [phone] System, Provider Not In Unavailable Unavaila ble Encounter Details Date Type Department Care Team (Late st Contact Info) Description 01/17/2024 Scanned Document [facility] [address] [place] [address] Dee Zhong [address] [facility] [address] [place] [address] Social History Tobacco Use Types Packs/Day Years [...] on filedocumented in this encounter Care Teams Mechanical Engineering Specialist Relationship Specialty Start Date End Date Rufino Rajput MD [facility] [place], [place] PCP - General Internal Medicine 12/27/23 Francisco J Galeana MD [facility] [place], [place] Cardiology-Scan 01/06/24 Orion Rodriguez MD [address] [place] [address] Surgery, Orthopedic 01/10/24 Kelby Celaya MD [address] [place] [address] [address] [place] [address] Physician Nephrology 01/10/24 System, Provider Not In 01/10/24 documented as of this encounter
== END 2025-05-08 12:28 | disposition home or self-care (01) ==
LOC: HO.HMCC 08:34
PROVIDERS: PCP Internal Medicine; Visit Provider Internal Medicine
DX: R26.81 Unsteadiness on feet (principal); Z91.81 History of falling; I12.9 Hypertensive chronic kidney disease with stage 1 through stage 4 chronic kidney disease, or unspecified chronic kidney disease; E13.22 Other specified diabetes mellitus with diabetic chronic kidney disease; N18.4 Chronic kidney disease, stage 4 (severe); D64.9 Anemia, unspecified; Z13.9 Encounter for screening, unspecified

== ENCOUNTER → 2025-05-08 08:33 | Outpatient (BNVA) | payer MEDICARE, OTHER, SELFPAY | PROVIDERS: PCP Internal Medicine; Visit Provider Internal Medicine | DX: I12.9 Hypertensive chronic kidney disease with stage 1 through stage 4 chronic kidney disease, or unspecified chronic kidney disease (principal); N18.4 Chronic kidney disease, stage 4 (severe); E13.22 Other specified diabetes mellitus with diabetic chronic kidney disease; R26.81 Unsteadiness on feet; D63.1 Anemia in chronic kidney disease; Z91.81 History of falling | CPT/HCPCS: 83036; 96127; 99212 ==

== ENCOUNTER 2025-05-09 09:06 | Outpatient (REF) | payer MEDICARE, OTHER, SELFPAY ==
--- OUTSIDE RECORDS SUMMARY | 2024-07-13 04:45 | XMS_ITS ---
Author Organization [facility] Address [address] [place] [address] Care Team Providers Care After School Program Teacher Name Role Phone Regulo CONKLIN, Rufino Primary Care Provider Ni Almanza [phone] REASON FOR VISIT Transfer to Different Provider Encounters Encounter Location Date Provider Diagnosis [address] [address] 07/13/2024 Ni Leone Plan Of Treatment Next Appt Details Provider Name:Ni duncan, 06/06/2025 09:15:00 AM, [address] [place], [address], Progress Notes * Quentin LARA SDOB:[birth year] (69 yo M)Acc No.[id number]:07/13/2024 Progress Note Patient: Molly DIORQuentin Magno Provider: Hari Leone DPM :1955 A ge:68 Y S ex:Male Date:07/13/2024 Address:[address] [id number] Pcp:Rufino Rajput MD Subjective: * Chief Complaints: [...] 1 09/13/2023 Generated for Vika nicholson/Carrie/Ashley on: 1 10:12 AM EDT
--- NOTE | ~2025-05-09 | US_ITS ---
CLINICAL HISTORY: K70.31 - Alcoholic cirrhosis of liver with ascites --- Additional Notes or Special Instructions: screen for HCC and FU of ascites US abdomen limited Comparison: 06/06/2024 Findings: The visualized pancreas is normal. The aorta and inferior vena cava are normal caliber. The appearance of the liver suggests fatty infiltration. There is no intrahepatic bile duct dilatation. The common duct is 3.5 mm in diameter. The gallbladder is normal. There is no sonographic Morales sign. The main portal vein is antegrade. The right kidney is 8.8 cm in length. No ascites. IMPRESSION: 1. Hepatic steatosis. This document has been electronically signed by: Yuriy Ramirez MD on 05/10/2025 09:50:08
--- OUTSIDE RECORDS SUMMARY | 2025-05-09 10:11 | XMS_ITS | Encounter Summary ---
Author Organization [facility] Address [address] [place] [address] Phone Care Team Providers Care Chemistry Laboratory Technician Name Role Phone Rufino Rajput MD Primary Care Provider [phone] Reason for Visit * Reason Comments Med Refill Encounter Details Date Type Department Care Team (Late Contact Info) Description 06/06/2021 Refill [facility] [address] [place] [id number] Olayinka Saldana MD Social History Tobacco Use [...] [facility] [address] [place] [address] 06/12/2025 8:30 AM EST Office Visit [facility] [address] [place] [phone] Karen Plascencia ARNP [address] [address] documented as of this encounter Visit Diagnoses Not on filedocumented in this encounter Care Teams Chemistry Laboratory Technician Relationship Specialty Start Date End Date Rufino Rajput MD [address] [place] [address] PCP - General Internal Medicine 04/06/21 documented as of this encounter
--- OUTSIDE RECORDS SUMMARY | 2025-05-09 10:12 | XMS_ITS | Clinical Summary ---
Author Organization [facility] Address [address] [place] [address] Care Team Providers Care Jack Frame Tender Name Role Phone Rufino Rajput MD Primary Care Provider [phone] Francisco J Galeana MD Unavailable Orion Rodriguez MD Unavailable [phone] Kelby Celaya MD Unavailable [phone] System, Provider Not In Unavailable Unavaila [...] needed by sublingual route. Active pancrelipase (Creon) 19119-46420 units Cap [address] Particles Take 1 capsule [...] before surgery). Coronary artery disease invo lving [place] heart without angina pectoris 01/08/2024 Assessment & Plan (01/10/2024 7:13 PM EDT): ID Follows with cardiology. Cardiac clearance scheduled 01/24/24 [...] of 2 - PCV) 12/28/1974 Colonoscopy 12/28/2000 RSV Vaccine 50 years and older and Patients (1 - Risk 50-74 years 1-dose series) 12/28/2005 Zoster (Shingles) Vaccine (1 of 2) 12/28/2005 Abdominal Aortic Aneurysm (AAA) Screening 12/28/2020 Hemoglobin A1C 07/12/2024 01/11/2024, 01/11/2024 Creatinine with GFR 01/10/2025 01/11/2024 Influenza Vaccine 02/22/2025 04/14/2023, , 04/18/2021, Additional history exists COVID-19 Vaccine ( season) 2025 04/18/2021, 10/09/2020, 09/18/2020 Hepatitis B Vaccines Aged Out No long er eligible based on patient's age to complete this topic Medical Devices Implanted Type Area Butcher Scullion Device Identifier Shelf Expiration Date Model / Serial / Lot 620-005 Filler Bone Void 5cc 12.5cc Calcium Slf Stimulan Rpd Cure - [id number] Implanted:Qty : 1 on 02/03/2024 by Orion Rodriguez MD at [facility] Void Filler Right: Foot [employer] - A BTG INT [id number] 03/24/2026 620-005 / / [id number] Procedures Procedure Name Priority Date/Time Associated Diagnosis Comments HEMOGLOBIN A1C WITH ESTIMATED AVERAGE GLUCOSE Routine 01/11/2024 12:22 PM EDT Preop examination Painful orthopaedic hardware (HCC) Acute osteomyelitis of right ankle or foot (HCC) Peripheral polyneuropathy Essential hypertension Pure hypercholesterolemia Coronary artery disease involving [place] heart without angina pectoris, unspecified vessel or [...] hypertension Pure hypercholesterolemia Coronary artery disease involving [place] heart without angina pectoris, unspecified vessel or [...] 7.4(H) <5.7 % 01/11/2024 8:16 PM EDT [facility] Comment: A1c% Interpretation 5.7 - 6.0 [...] APRN LAB BLOOD ORDERABLES Final R esult [address] [address], [address] [address] * (ABNORMAL) Basic Metabolic Panel (01/11/2024 12:22 [...] 01/11/2024 7:01 PM EDT us Kaykay Bailey BLOCKING MACHINE TENDER LAB BLOOD ORDERABLES Final R esult [address] [address], [address] [address] from Last 3 Months or Most Recently Relevant to Health Maintenance Insurance MEDICARE PART A & B Member Subscriber Plan / Payer (Ef fective 2020-Present) Name:Quentin Lara Member ID:[id number] Relation to Subscriber:Self Name:Quentin Lara Subscriber ID:[id number] Payer ID:[id number] Group ID:Not on file Type:Not on file Address: [address] MEDICARE PART A & B Member Subscriber Plan / Payer (Ef fective 2020-) Name:Quentin Lara Member ID:[id number] Relation to Subscriber:Self Name:ScottwendyQuentin Subscriber ID:[id number] Payer ID:[id number] Group ID:Not on file Type:Not on file Address: [address] Advance Directives * Full Code (Latest Code Status on File) Date Activated Date Inactivated Comments 02/03/2024 7:41 AM Care Teams Jack Frame Tender Relationship Specialty Start Date End Date Rufino Rajput MD [address] [place] [address] PCP - General Internal Medicine 12/27/23 Francisco J Galeana MD [address] [place] [address] Cardiology-Scan 01/06/24 Orion Rodriguez MD [address] [place] [address] [address] [place] [address] Surgery, Orthopedic 01/10/24 Kelby Celaya MD [address] [place] [address] Physician Nephrology 01/10/24 System, Provider Not In 01/10/24
--- OUTSIDE RECORDS SUMMARY | 2025-05-09 10:12 | XMS_ITS | Encounter Summary ---
Author Organization [facility] Address [address] [place] [address] Care Team Providers Care Ball Maker Name Role Phone Rufino Rajput MD Primary Care Provider [phone] Francisco J Galeana MD Unavailable Orion Rodriguez MD Unavailable [phone] Kelby Celaya MD Unavailable [phone] System, Provider Not In Unavailable Unavaila ble Encounter Details Date Type Department Care Team (Late st Contact Info) Description 01/18/2024 Scanned Document [facility] [address] [place] [address] Dee Zhong [address] [facility] [address] [place] [address] Social History Tobacco Use Types Packs/Day Years [...] on filedocumented in this encounter Care Teams Ball Maker Relationship Specialty Start Date End Date Rufino Rajput MD [facility] [place], [place] PCP - General Internal Medicine 12/27/23 Francisco J Galeana MD [facility] [place], [place] Cardiology-Scan 01/06/24 Orion Rodriguez MD [address] [place] [address] Surgery, Orthopedic 01/10/24 Kelby Celaya MD [address] [place] [address] 200 [place] [address] Physician Nephrology 01/10/24 System, Provider Not In 01/10/24 documented as of this encounter
--- OUTSIDE RECORDS SUMMARY | 2025-05-09 10:12 | XMS_ITS | Encounter Summary ---
Author Organization [facility] Address [address] [place] [address] Care Team Providers Care Lead Security Officer Name Role Phone Rufino Rajput MD Primary Care Provider [phone] Francisco J Galeana MD Unavailable Orion Rodriguez MD Unavailable Kelby Celaya MD Unavailable [phone] System, Provider Not In Unavailable Unavaila ble Encounter Details Date Type Department Care Team (Late st Contact Info) Description 01/17/2024 Scanned Document [facility] [address] [place] [address] Dee Zhong [address] [facility] [address] [place] [address] Social History Tobacco Use Types Packs/Day Years [...] on filedocumented in this encounter Care Teams Lead Security Officer Relationship Specialty Start Date End Date Rufino Rajput MD [facility] [place], [place] PCP - General Internal Medicine 12/27/23 Francisco J Galeana MD [facility] [place], [place] Cardiology-Scan 01/06/24 Orion Rodriguez MD [address] [place] [address] Surgery, Orthopedic 01/10/24 Kelby Celaya MD [address] [place] [address] [address] [place] [address] Physician Nephrology 01/10/24 System, Provider Not In 01/10/24 documented as of this encounter
--- OUTSIDE RECORDS SUMMARY | 2025-05-09 10:12 | XMS_ITS | Clinical Summary ---
Author Organization [facility] Address [address] [place] [address] Phone Care Team Providers Care Through Freight Engineer Name Role Phone Rufino Rajput MD Primary Care Provider [phone] Allergies Active Allergy Reactions Criticality Noted Date Comments Codeine 07/21/2020 Medications calcitrioL (ROCALTROL) 0.25 mcg capsule Take 1 Capsule by mouth every other day. Active insulin aspart (NovoLOG) 100 unit/mL injection Inject as directed. Sliding scale Active insulin detemir (LEVEMIR) 100 unit/mL injection Inject 17 Units into the skin at bedtime. Active pancrelipase, Xao-Uynh-Ffzj, (CREON) 24,000-76,000 -120,000 unit capsule Take 2 [...] Diagnosed Date Coronary artery disease invo lving [place] coronary artery of [place] heart without angina pectoris 03/01/2025 Assessment & [...] socks for now. Aneurysm of ascending aorta ([facility] V24) 2019 Overview (04/24/2024): 11/2019 [...] medical treatment. Will repeat lipid profile. Diabetes ([facility] V24, [facility] V28) 07/21/2020 Overview (04/24/2024): Last Assessment & Plan: Suggest him to call [place] office to get a new primary care [...] Description 03/08/2025 10:00 AM EDT Ancillary Procedure [facility] [address] [place] [address] Coronary artery disease involving [place] coronary artery of [place] heart without angina pectoris 03/01/2025 8:40 AM EDT Office Visit [facility] [address] [place] [address] Emelina Haines, WALLPAPER INSTALLER Coronary artery disease involving [place] coronary artery of [place] heart without angina pectoris (Primary Dx); Hyperlipidemia LDL goal <70; Primary hypertension; Lower extremity edema; Aneurysm of ascending aorta without rupture ([facility] V24) from Last 3 Months Immunizations Immunization Administration [...] Description 07/19/2025 9:30 AM EST Office Visit [facility] Hematology Oncology [address] [place] [address] Radha Lambert PA [address] [place] [address] Health Maintenance Due Date Last Done Comments [...] 10:25 AM EDT Coronary artery disease involving [place] coronary artery of [place] heart without angina pectoris ECG 12-LEAD Routine 03/01/2025 10:08 AM EDT Coronary artery disease involving [place] coronary artery of [place] heart without angina pectoris B-TYPE NATRIURETIC PEPTIDE Routine 03/01/2025 9:47 AM EDT Lower extremity edema COMPREHENSIVE METABOLIC PANEL Routine 07/30/2024 9:57 AM [...] (03/08/2025 10:25 AM EDT) Left Atrium Minor Menlo 6.0 cm CV PACS Left Atrium Major [place]lo 6.0 cm CV PACS LA Area Sys [...] ECG 12 lead (03/01/2025 10:08 AM EDT) Ventricular Rate ECG 60 BPM GEMUSE Atrial Rate 60 BPM GEMUSE P-R Interval 184 ms GEMUSE QRS Duration 100 ms GEMUSE Q-T Interval 448 ms GEMUSE QTc 448 ms GEMUSE P Wave Menlo 70 degrees GEMUSE R Menlo 80 degrees GEMUSE T Menlo 67 degrees GEMUSE ECG Interpretation Normal sinus rhythm Normal ECG When compared with ECG of 30-JUL-2024 08:59, Nonspecific T wave abnormality no longer evident in Anterolateral leads Confirmed by Alicia BROWN JAY ([id number]) on 03/28/2025 10:40:32 AM GEMUSE 03/01/2025 8:51 AM EDT 03/28/2025 10:40 AM EDT us Emelina Haines WALLPAPER INSTALLER ECG ORDERABLES Edited Result - Final Performing Organization Address City/[facility]/ZIP Co de Phone Number GEMUSE * (ABNORMAL) B-type natriuretic peptide (03/01/2025 9:47 AM EDT) Pathologist [facility] BNP 229(H) <=100 pcg/mL LAB CHEMISTRY METHOD 03/01/2025 11:25 AM EDT [facility] Blood Venous blood specimen / Unknown Venipuncture / Unknown 03/01/2025 9:47 AM EDT 03/01/2025 10:28 AM EDT us Emelina Haines NP LAB BLOOD ORDERABLES Final Resu lt Performing Organization Address City/[facility]/ZIP Co de Phone Number [facility] [address] [place] [address], [place] [phone] * Lipid panel with reflex to direct LDL (07/30/2024 9:57 AM EST) Cholesterol 127 0 - 200 mg/dL LAB CHEMISTRY METHOD 07/30/2024 4:32 PM EST [facility] Triglycerides 140 0 - 150 mg/dL LAB CHEMISTRY METHOD 07/30/2024 4:32 PM [facility] HDL 68 >=40 mg/dL LAB CHEMISTRY METHOD 07/30/2024 4:32 PM [facility] LDL Calculated 31 0 - 100 mg/dL LAB CHEMISTRY METHOD 07/30/2024 4:32 PM [facility] VLDL Cholesterol Rick 28 mg/dL LAB CHEMISTRY METHOD 07/30/2024 4:32 PM EST [facility] Non HDL Chol. (LDL+VLDL) [...] MD LAB BLOOD ORDERABLES Final Resul t [facility] [address] [place] [address], [place] [phone] * (ABNORMAL) Comprehensive metabolic panel (07/30/2024 9:57 [...] [facility] Comment:Calculation based on the Chronic [...] 4:48 PM [facility] Total Bilirubin 0.3 0.0 - 1.4 mg/dL LAB CHEMISTRY METHOD 07/30/2024 4:48 PM [facility] Blood Venous blood specimen / Unknown Venipuncture / Unknown 07/30/2024 9:57 AM EST 07/30/2024 9:57 AM EST us Radha BOCANEGRA LAB BLOOD ORDERABLES Final Re sult [facility] [address] [place] [address], * Hemoglobin A1c (01/11/2024) Hemoglobin A1C 0.0 % Comment:No Interpretation Blood Venous blood specimen / Unknown Historical Provider LAB BLOOD ORDERABLES Gertrude l Result * Urine Albumin Creatinine Ratio (01/10/2024) HM Urine Albumin Creatinine Ratio Abstracted Historical Provider HEALTH MAINTENANCE Final Result from Last 3 Months or Most Recently Relevant to Health Maintenance Insurance MEDICARE [facility] Advance Directives Documents on File Type Date Recorded Patient Machine Splitter Expl anation Health Care Decision (hx) 06/04/2021 [...] (hx) 06/04/2021 AD LOPEZ DIRECTIVE Care Teams Through Freight Engineer Relationship Specialty Start Date End Date Rufino Rajput MD [address] [place] [address] PCP - General Internal Medicine 01/28/21
--- OUTSIDE RECORDS SUMMARY | 2025-05-09 10:12 | XMS_ITS | Encounter Summary ---
Author Organization [facility] Address [address] [place] [address] Care Team Providers Care Muck Miner Name Role Phone Rufino Rajput MD Primary Care Provider [phone] Francisco J Galeana MD Unavailable Orion Rodriguez MD Unavailable [phone] Kelby Celaya MD Unavailable [phone] System, Provider Not In Unavailable Unavaila ble Encounter Details Date Type Department Care Team (Late st Contact Info) Description 04/18/2024 Scanned Document [facility] [address] [place] [address] Dee Zhong [address] [facility] [address] [place] [address] Social History Tobacco Use Types Packs/Day Years [...] on filedocumented in this encounter Care Teams Muck Miner Relationship Specialty Start Date End Date Rufino Rajput MD [facility] [place], [place] PCP - General Internal Medicine 12/27/23 Francisco J Galeana MD [facility] [place], [place] Cardiology-Scan 01/06/24 Orion Rodriguez MD [address] [place] [address] Surgery, Orthopedic 01/10/24 Kelby Celaya MD [address] [place] [address] [address] [place] [address] Physician Nephrology 01/10/24 System, Provider Not In 01/10/24 documented as of this encounter
--- OUTSIDE RECORDS SUMMARY | 2025-05-09 10:12 | XMS_ITS | Encounter Summary ---
Author Organization [facility] Address [address] [place] [address] Care Team Providers Care Records Analysis Manager Name Role Phone Rufino Rajput MD Primary Care Provider [phone] Francisco J Galeana MD Unavailable Orion Rodriguez MD Unavailable Kelby Celaya MD Unavailable [phone] System, Provider Not In Unavailable Unavaila ble Encounter Details Date Type Department Care Team (Late st Contact Info) Description 04/16/2024 Scanned Document [facility] [place] [address] Orion Rodriguez MD [address] [place] [address] Social History Tobacco Use Types Packs/Day Years [...] on filedocumented in this encounter Care Teams Records Analysis Manager Relationship Specialty Start Date End Date Rufino Rajput MD [facility] [place], [place] PCP - General Internal Medicine 12/27/23 Francisco J Galeana MD [facility] [place], [place] Cardiology-Scan 01/06/24 Orion Rodriguez MD [address] [place] [address] Surgery, Orthopedic 01/10/24 Kelby Celaya MD [address] [place] [address] Physician Nephrology 01/10/24 System, Provider Not In 01/10/24 documented as of this encounter
--- OUTSIDE RECORDS SUMMARY | 2025-05-09 10:12 | XMS_ITS | Patient Health Record ---
Author Organization [facility] Address [address] [facility] [address] Care Team Providers Care Polymer Scientist Name Role Phone [facility] CONKLIN, [facility] Primary Care Provider Ni Almanza Unavailable [phone] Allergies Allergen (clinical drug ingredient) Drug/Non Drug [...] Problem Acquired hammer toe of right foot (257964167113816 5) Other hammer toe(s) (acquired), right foot (M20.41) Active confirmed Response to treatment, Improvement Problem Acquired hammer toe of left foot (549665582622862 3) Other hammer toe(s) (acquired), left foot (M20.42) Active confirmed Response to treatment, Improvement Problem Polyneuropathy due to type 2 diabetes mellitus (245751140) Type 2 diabetes mellitus with diabetic polyneuropathy (E11.42) Active confirmed Problem 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) Active confirmed Response to treatment- Improvement Problem Neuropathic ulcer of right foot (disorder) (464823163962993 02) Neuropathic ulcer of right foot, 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) Active confirmed Response to treatment Vital Signs Blood pressure diastolic 65 mm Hg 03/07/2025 Height 5ft 11in in 03/07/2025 Blood pressure systolic 126 mm Hg 03/07/2025 Weight 155 lbs 03/07/2025 BMI 21.62 kg/m2 03/07/2025 Procedures Procedure Date Ordered Date Performed Result Body Sit e 28809-HBUXVKK NAIL, 6 OR MORE 07/12/2024 N/A 94801-TNXC SKIN LESIONS, OVER 4 07/12/2024 N/A 48336-ALDZMJE NAIL, 6 OR MORE 11/02/2024 N/A 16869-OFDU SKIN LESIONS, OVER 4 11/02/2024 N/A 95701-KZDRALM NAIL, 6 OR MORE 02/20/2025 N/A 87571-OCRRLXJ SKIN/TISSUE 02/20/2025 N/A 14136-RLYV SKIN LESIONS, OVER 4 02/20/2025 N/A 80803-HIGGTHH SKIN/TISSUE 03/07/2025 N/A Encounters Encounter Location Date Provider Diagnosis [address] [address] 07/12/2024 Ni Leone Other hammer toe(s) (acquired), right foot M20.41 ; Other hammer toe(s) (acquired), left foot M20.42 ; Type 2 diabetes mellitus with diabetic polyneuropathy E11.42 and Tinea unguium B35.[address] [address] 11/02/2024 Ni Leone Type 2 diabetes mellitus with diabetic polyneuropathy E11.42 ; Neuropathic ulcer of right foot, limited to breakdown of skin L97.511 and Tinea unguium B35.[address] [address] 11/16/2024 Ni Leone Neuropathic ulcer of right foot, limited to breakdown of skin L97.[address] [address] 02/20/2025 Ni Leone Type 2 diabetes mellitus with diabetic polyneuropathy E11.42 ; Neuropathic ulcer of right foot, limited to breakdown of skin L97.511 and Tinea unguium B35.[address] [address] 03/07/2025 Ni Leone Neuropathic ulcer of right foot with fat layer exposed L97.[address] [address] 03/07/2025 Ni Leone Assessments Encounter Date Diagnosis [...] X ray : Foot, right 3V 12/31/2022 84933-KVKWKQT NAIL, 6 OR MORE 07/12/2024 54657-PLTWHTF NAIL, 6 OR MORE 11/02/2024 30509-PTFXYJK NAIL, 6 OR MORE 02/20/2025 62106-IEESPXK SKIN/TISSUE 10/07/2023 36490-HTCZYTG SKIN/TISSUE 04/30/2021 99855-KWXYVFL SKIN/TISSUE 08/03/2021 88312-IUYRQRO SKIN/TISSUE 02/20/2025 38829-WPTQYWE SKIN/TISSUE 03/07/2025 61409-ARQG SKIN LESIONS, OVER 4 07/12/20 24 42752-EZAO SKIN LESIONS, OVER 4 02/21/20 25 73333-FRLT SKIN LESIONS, OVER 4 11/03/19 25 22447-NSMK SKIN LESIONS, 2 TO 4 08/03/19 22 86112-PWPW SKIN LESIONS, 2 TO 4 04/30/20 21 56999-UNSE SKIN LESIONS, 2 TO 4 02/26/20 21 07400-VUJTYBVX OF HEMATOMA/FLUID 022 Next Appt Details Provider Name:Ni Lee perla, 06/06/2025 09:15:00 AM, [address] [place], [address], Insurance Providers Payer Name Payer Address Payer Phone Subscriber Number Group Number Insured Name Patient Relationship to Insured Coverage Start Date Coverage End Date Medicare National [employer] [address] [facility] [address] [id number] Quentin Lara Self - patient is the insured [facility] [address] [place] [address] [id number] Quentin Lara Self - patient is [...] kidney sones, 3 day stay 01/23 04/15 [facility] ER- Coundn't get up/lanre d -KidneyLiver failure-swelling/Infection ICU few weeks -rehab 6wks 05/29/2021 [facility] - pneumonia 06/2013-1-14
--- OUTSIDE RECORDS SUMMARY | 2025-05-09 10:12 | XMS_ITS | Clinical Summary ---
Author Organization [facility] Address [address] [place] [address] Care Team Providers Care Placer Miner Name Role Phone Rufino Rajput MD Primary Care Provider [phone] Allergies Active Allergy Reactions Criticality Noted Date [...] total) by mouth daily. 0 Active pancrelipase, Rqw-Pijj-Snuq, (CREON) 54[address] units CPEP Take 1 capsule (24,000 units [...] age to complete this topic Care Teams Placer Miner Relationship Specialty Start Date End Date Rufino Rajput MD [address] [place] [address] PCP - General Internal Medicine 01/13/24
--- OUTSIDE RECORDS SUMMARY | 2025-05-09 10:12 | XMS_ITS | Clinical Summary ---
Author Organization [facility] Address [address] [place] [address] Phone Care Team Providers Care Painter Spray Name Role Phone Rufino Rajput MD Primary Care Provider [phone] Allergies Active Allergy Reactions Criticality Noted Date [...] 1 (one) time each day Active pancrelipase, Xel-Ysgt-Nomq, (CREON) 23680-85[address] units capsule Take 1 capsule by mouth [...] 4 (severe) (HCC),Anemia in chronic kidney disease 51246 Units IJ Once 04/29/2025 04/29/2025 E nded [...] 11/15/2013 Overview (04/24/2024): STORY: DOMINGO BURROWS RN [phone]/ANA PAULA IMPRESSION: BASED ON HOME MEASUREMENTS CONTROL [...] ( severe disability ) on ; initial [place]: 13 on 01/27/17 Glaucoma 09/04/2021 09/04/2021 H/O: [...] Clinical Support [facility] [address] [phone] Chronic kidney disease, stage 4 (severe) (HCC) (Primary Dx); Anemia in chronic kidney disease 04/29/2025 2:00 PM EDT [facility] [address] [phone] Kelby Celaya MD Chronic kidney disease, stage 4 (severe) (HCC) (Primary Dx); Anemia in chronic kidney disease; Type 2 diabetes mellitus with diabetic chronic kidney disease, 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) 04/21/2025 Orders Only [facility] [address] [phone] Karen Plascencia ARNP Stage 3b chronic kidney disease (HCC); Essential hypertension; Anemia in chronic kidney disease; Renal osteodystrophy 04/14/2025 Refill [facility] [address] [place] [address] Kelby Celaya MD 03/20/2025 2:15 PM EDT Office Visit [facility] [address] [phone] Kelby Celaya MD Type 2 diabetes mellitus with diabetic chronic kidney disease (HCC) (Primary Dx); Renal osteodystrophy; Chronic kidney disease, stage 4 (severe) (HCC) 03/11/2025 Refill [facility] [address] [place] [address] Kelby Celaya MD 03/05/2025 11:30 AM EDT Office Visit [facility] [address] [facility] [address] [place] [phone] Kelby Celaya MD Chronic kidney disease, stage 4 (severe) (HCC) (Primary Dx); Renal osteodystrophy 02/10/2025 Refill [facility] [address] [place] [address] Kelby Celaya MD from Last 3 Months [...] Clinical Support [facility] [address] [phone] 06/12/2025 8:30 AM EST Office Visit [facility] [address] [phone] Karen Plascencia ARNP [address] [phone] Health Maintenance Due Date Last [...] time period is included. Comment: Note: [facility] Comment: CBC met reflex criteria for review of peripheral smear by medical laboratory professional. Automated results were confirmed by smear review. 04/24/2025 3:14 PM EDT 04/24/2025 Kelby Celaya MD LAB BLOOD ORDERABLES Final Re sult Performing Organization Address City/[facility]/ZIP Co de Phone Number [facility] [address] [place] [phone] * Microscopic Examination (04/24/2025 3:14 PM EDT) Only the most recent of2 resultswithin the time period is included. WBC, Urine None seen 0 - 5 /hpf [facility] RBC, Urine None seen 0 - 2 /hpf [facility] Squamous Epithelial, Urine None seen 0 - 10 /hpf [facility] Casts None seen None seen /lpf [facility] Bacteria, Urine None seen None seen/Few [facility] 04/24/2025 3:14 PM EDT 04/24/2025 Kelby Celaya MD LAB MICROBIOLOGY - GENERAL OR DERABLES Final Result Performing Organization Address City/[facility]/ZIP Co de Phone Number [facility] [address] [place] [address] * (ABNORMAL) Iron Panel (Fe, TIBC, TSAT) (04/24/2025 3:14 PM EDT) Only the most recent of2 resultswithin the time period is included. TIBC 247(L) 250 - 450 ug/dL [facility] UIBC 130 111 - 343 ug/dL [facility] Iron 117 38 - 169 ug/dL [facility] Iron Saturation (TSat) 47 15 - 55 % [facility] Blood Venous blood / Unknown 04/24/2025 3:14 PM EDT 04/24/2025 Kelby Celaya MD LAB BLOOD ORDERABLES Final Re sult Performing Organization Address City/[facility]/ZIP Co de Phone Number [facility] [place] [address] [place] [address] * (ABNORMAL) Urine Protein / creatinine ratio (04/24/2025 3:14 PM EDT) Only the most recent of2 resultswithin the time period is included. Creatinine, Ur 53.7 Not Estab. mg/dL [facility] Protein, Ur 39.8 Not Estab. mg/dL [facility] Urine Protein/Creati nine Ratio 741(H) 0 - 200 mg/g creat [facility] Urine Urine specimen obtained by clean catch procedure / Unknown 04/24/2025 3:14 PM EDT 04/24/2025 Karen MARKHAM LAB URINE ORDERABLES Final Result Performing Organization Address City/[facility]/ZIP Co de Phone Number [facility] [place] [address] [place] [address] * (ABNORMAL) Urine Albumin / Creatinine Ratio (04/24/2025 3:14 PM EDT) Only the most recent of2 resultswithin the time period is included. Albumin, Urine 154.2 Not Estab. ug/mL [facility] Albumin/Creatin ine Ratio 287(H) 0 - 29 mg/g creat [facility] Comment: Normal: 0 - 29 Moderately increased: 30 - 300 Severely increased: >300 Urine Urine specimen obtained by clean catch procedure / Unknown 04/24/2025 3:14 PM EDT 04/24/2025 us Karen Temo [facility] LAB URINE ORDERABLES Final Result [facility] [address] [place] [phone] * Vitamin D 25 Hydroxy (04/24/2025 3:14 PM EDT) Only the most recent of2 resultswithin the time period is included. Vitamin D, 25-OH, Total 37.7 30.0 - 100.0 ng/mL [facility] Comment: Vitamin D deficiency has been defined by the [place] of [employer] and an Endocrine Society practice guideline as a level of serum 25-OH vitamin D less than 20 ng/mL (1,2). The Endocrine Society went on to further define vitamin D insufficiency as a level between 21 and 29 ng/mL (2). 1. IOM ([place] of [employer]). 2010. Dietary reference intakes for [...] BLOOD ORDERABLES Final Re sult [facility] [address] [place] [address] * (ABNORMAL) Urinalysis with microscopic (04/24/2025 3:14 PM EDT) Only the most recent of2 resultswithin the time period is included. Specific [place], Urine 1.017 1.005 - 1.030 [facility] [phone] pH Urine 6.0 5.0 - 7.5 [facility] Color, Urine Yellow Yellow [facility] Appearance Urine Clear Clear [facility] [place] [phone] WBC Esterase Urine Negative Negative [facility] [phone] Protein, Ur 1+(A) Negative/Tra ce [facility] Glucose, Ur 2+(A) Negative [facility] Ketones, Urine Negative Negative [facility] [place] Blood Urine Negative Negative [facility] Bilirubin Urine Negative Negative [facility] [place] [phone] Urobilinogen Urine 0.2 0.2 - 1.0 mg/dL [facility] Nitrite, Urine Negative Negative [facility] [place] Microscopic Examination See below: [facility] Comment:Microscopic was ethan cated and was performed. Urine Urine specimen obtained by clean catch procedure / Unknown 04/24/2025 3:14 PM EDT 04/24/2025 Kelby Celaya MD LAB URINE ORDERABLES Final Re sult Performing Organization Address City/[facility]/ZIP Co de Phone Number [facility] [address] [place] [address] * (ABNORMAL) CBC (04/24/2025 3:14 PM EDT) Only the most recent of2 resultswithin the time period is included. WBC 7.2 3.4 - 10.8 x10E3/uL [facility] RBC 2.97(L) 4.14 - 5.80 x10E6/uL [facility] Hemoglobin 9.3(L) 13.0 - 17.7 g/dL [facility] Hematocrit 28.5(L) 37.5 - 51.0 % [facility] MCV 96 79 - 97 fL [facility] MCH 31.3 26.6 - 33.0 pg [facility] MCHC 32.6 31.5 - 35.7 g/dL [facility] RDW 12.9 11.6 - 15.4 % [facility] Platelets 85(LL) 150 - 450 x10E3/uL [facility] Blood Venous blood / Unknown 04/24/2025 3:14 PM EDT 04/24/2025 Karen MARKHAM LAB BLOOD ORDERABLES Final Result [facility] [address] [place] [address] * (ABNORMAL) PTH, intact (04/24/2025 3:14 PM EDT) Only the most recent of2 resultswithin the time period is included. PTH 136(H) 15 - 65 pg/mL [facility] Blood Venous blood / Unknown 04/24/2025 3:14 PM EDT 04/24/2025 [facility] LAB BLOOD ORDERABLES Final Result Performing Organization Address City/[facility]/ZIP Co de Phone Number [facility] [place] [address] [place] [address] * Magnesium (04/24/2025 3:14 PM EDT) Only the most recent of2 resultswithin the time period is included. Magnesium 1.8 1.6 - 2.3 mg/dL [facility] Blood Venous blood / Unknown 04/24/2025 3:14 PM EDT 04/24/2025 [facility] LAB BLOOD ORDERABLES Final Result Performing Organization Address [facility] Co de Phone Number [facility] [address] [place] [address] * (ABNORMAL) Renal function panel (04/24/2025 3:14 PM EDT) Only the most recent of2 resultswithin the time period is included. Glucose 211(H) 70 - 99 mg/dL [facility] BUN 54(H) 8 - 27 mg/dL [facility] Creatinine 3.39(H) 0.76 - 1.27 mg/dL [facility] eGFR CKD-EPI CR 2020 19(L) >59 mL/min/1.7 3 [facility] BUN/Creatinine Ratio 16 10 - 24 [facility] Sodium 138 134 - 144 mmol/L [facility] Potassium 4.7 3.5 - 5.2 mmol/L [facility] Chloride 106 96 - 106 mmol/L [facility] Bicarbonate (CO2) 16(L) 20 - 29 mmol/L [facility] Calcium 8.6 8.6 - 10.2 mg/dL [facility] Albumin 4.1 3.9 - 4.9 g/dL [facility] Phosphorus 6.3(H) 2.8 - 4.1 mg/dL [facility] Blood Venous blood / Unknown 04/24/2025 3:14 PM EDT 04/24/2025 Karen Temo MARKHAM LAB BLOOD ORDERABLES Final Result [facility] [address] [place] [address] * Hepatitis C antibody (03/05/2025 12:46 PM EDT) Hep C Virus Ab Non Reactive Non Reactive [facility] [place] [phone] Comment: HCV antibody alone does not differentiate between previously resolved infection and active infection. Equivocal and Reactive HCV antibody results should be followed up with an HCV RNA test to support the diagnosis of active HCV infection. Blood Venous blood / Unknown 03/05/2025 12:46 PM EDT 03/05/2025 Kelby Celaya MD LAB BLOOD ORDERABLES Final Re sult [facility] [place] [address] [place] [address] * (ABNORMAL) [place]/Lambda free LT chains w/ratio, Serum (03/05/2025 12:46 PM EDT) Free [place] Lt Chains, S 70.0(H) 3.3 - 19.4 mg/L [facility] Free Lambda Lt Chains, S 62.5(H) 5.7 - 26.3 mg/L [facility] Free [place]/Lambda Ratio 1.12 0.26 - 1.65 [facility] Blood Venous blood / Unknown 03/05/2025 12:46 PM EDT 03/05/2025 Kelby Celaya MD LAB BLOOD ORDERABLES Final Re sult Performing Organization Address City/[facility]/ZIP Co de Phone Number [facility] [address] [place] [address] * Hepatitis B core antibody, IgM (03/05/2025 12:46 PM EDT) Hep B Core IgM Negative Negative [facility] Blood Venous blood / Unknown 03/05/2025 12:46 PM EDT 03/05/2025 Kelby Celaya MD LAB BLOOD ORDERABLES Final Re sult Performing Organization Address [facility] Co de Phone Number [facility] [place] [address], [address] [place] [address] * (ABNORMAL) Hepatitis B Surface Antibody (03/05/2025 12:46 PM EDT) Hepatitis B Surface Ab 5.8(L) Immunity>1 0 mIU/mL [facility] [place] Comment: Status of Immunity Anti-HBs Level Inconsistent with Immunity 0.0 - 10.0 Consistent with Immunity >10.0 Blood Venous blood / Unknown 03/05/2025 12:46 PM EDT 03/05/2025 Kelby Celaya MD LAB BLOOD ORDERABLES Final Re sult [facility] [place] [address], [address] [place] [address] * Hepatitis B Surface Antigen (03/05/2025 12:46 PM EDT) Hep B Surface Ag Negative Negative [facility] Blood Venous blood / Unknown 03/05/2025 12:46 PM EDT 03/05/2025 Kelby Celaya MD LAB BLOOD ORDERABLES Final Re sult [facility] [address], [address] [place] [address] * C3 Complement (03/05/2025 12:46 PM EDT) Pathologist [facility] C3 Complement 95 82 - 167 mg/dL [facility] Blood Venous blood / Unknown 03/05/2025 12:46 PM EDT 03/05/2025 Kelby Celaya MD LAB BLOOD ORDERABLES Final Re sult [facility] [address] [place] [address] * C4 Complement (03/05/2025 12:46 PM EDT) Pathologist [facility] C4 Complement 15 12 - 38 mg/dL [facility] Blood Venous blood / Unknown 03/05/2025 12:46 PM EDT 03/05/2025 Kelby Celaya MD LAB BLOOD ORDERABLES Final Re sult [facility] [address] [place] [address] * ZACHARY Panel (03/05/2025 12:46 PM EDT) ZACHARY Negative Negative [facility] Blood Venous blood / Unknown 03/05/2025 12:46 PM EDT 03/05/2025 us Kelby Celaya MD LAB BLOOD ORDERABLES Final Re sult [facility] [place] [address] [place] [address] * Protein electrophoresis, serum (03/05/2025 12:46 PM EDT) Pathologist [facility] Total Protein 6.1 6.0 - 8.5 g/dL [facility] Albumin 3.5 2.9 - 4.4 g/dL [facility] Jfucy-2-Vjajsapt 0.2 0.0 - 0.4 g/dL [facility] Tmusn-2-Tadgvrwj 0.6 0.4 - 1.0 g/dL [facility] Beta Globulin 0.8 0.7 - 1.3 g/dL [facility] Gamma Globulin in Serum 1.0 0.4 - 1.8 g/dL [facility] M-Ayd Serum Not Observed Not Observed g/dL [facility] [phone] Globulin, Total 2.6 2.2 - 3.9 g/dL [facility] A/G Ratio 1.3 0.7 - 1.7 [facility] Please note Comment [facility] Comment: Protein electrophoresis scan will follow via computer, mail, or physicist acoustics delivery. PDF . [facility] [phone] Blood Venous blood / Unknown 03/05/2025 12:46 PM EDT 03/05/2025 us Kelby Celaya MD LAB BLOOD ORDERABLES Final Re sult [facility] [address] [place] [address] * Ferritin (03/05/2025 12:46 PM EDT) Ferritin 56 30 - 400 ng/mL [facility] Blood Venous blood / Unknown 03/05/2025 12:46 PM EDT 03/05/2025 us Kelby Celaya MD LAB BLOOD ORDERABLES Final Re sult Performing Organization Address [facility] de Phone Number [facility] [place] [address] [place] [address] * Ultrasound renal limited (02/08/2025 7:47 AM [...] mg/dl PVNMA 07/22/2020 us [facility] [id number] LICITED RESULTS Final Result PVNMA from Last 3 Months or Most Recently Relevant to Health [place] [address] [place] [address] Medicare Care Teams Painter Spray Relationship Specialty Start Date End Date Rufino Rajput MD [address] [place] [phone] PCP - General Internal Medicine 04/06/21
--- OUTSIDE RECORDS SUMMARY | 2025-05-09 10:12 | XMS_ITS | Data Portability ---
Author Organization [facility], Main Office Address [address] [facility] [address] [place] [address] Care Team Providers Care Farm Crew Leader Name Role Phone GLYNN HERNÁNDEZ Primary Care Provider SATHISH BRISENO Senior Storage Administrator [phone] JACKY ROUSE Nutrition Aide [phone] KATIE NAVARRO Traveling Freight Agent KATHE FITZPATRICK Clinical Team Lead JESSICA MINAYA Masonry Installer [phone] SEBASTIEN LINK Ore Feeder Assessment No assessment recorded. Plan of Treatment Reminders Order Date Submit Date Provider Last Modified By Organization Details Last Modified Time Details Appointments None recorded. Lab hemoglobi n A1C, fingersti ck 2018 019 [email or web address] In-Office Order, Internal Use Only DO Not Attach Compendium DO Not Attach Compendium, Do Not Delete/merge, [id number] 9 16:07:07 HbA1c (hemoglob in A1c), blood 2018 019 [facility], [address], [address], [place], [address], 9 22:21:36 HbA1c (hemoglob in A1c), blood 2018 019 [facility], [address], [place], [address], 9 22:21:53 CMP, serum or plasma 2018 019 [facility], [address], [address], [place], [address], 9 18:48:40 urinalysi s, complete 2018 019 [facility], [address], [address], [place], [address], 9 18:33:34 CBC w/ auto diff 2018 019 [facility], [address], [address], [place], [address], 9 18:49:41 HbA1c (hemoglob in A1c), blood 2018 019 [facility], [address], [address], [place], [address], 9 22:55:14 ESR (erythroc yte sedimenta tion rate), blood 2018 019 [facility], [address], [address], [place], [address], 9 20:12:23 activated partial thrombopl astin time, coagulati on assay, blood 2018 019 [facility], [address], [address], [place], [address], 9 19:34:47 PT/INR 2018 019 [facility], [address], [address], [place], [address], 9 19:44:19 CMP, serum or plasma 2018 019 [facility], [address], [address], [place], [address], 9 19:58:54 CBC w/ auto diff 2018 019 [facility], [address], [address], [place], [address], 9 19:39:56 PSA, serum or plasma 2018 019 [facility], [address], [address], [place], [place], [address], 9 15:15:17 BMP, serum or plasma 2018 019 [facility], [address], [address], [place], [place], [address], 9 15:27:39 CBC w/ auto diff 2018 019 [facility], [address], [address], [place], [place], [address], 9 13:47:02 iron + total iron-bind ing capacity (TIBC), serum 2018 019 [facility], [address], [address], [place], [address], 9 16:15:02 Referral pain managemen t referral - for follow up on pt with chronic worsenign neuropath y 2018 019 [email or web address] [facility], [address] [place], [address], 9 09:41:11 diabetic ophthalmo logy referral 2018 019 KATHY Not available 9 17:39:39 gastroent erologist referral - for eval of pt with anemia and wt loss 2018 019 jeri Minaya MD, [address] [place], [address], 9 17:45:57 nutrition ist/dieti aneudy referral 2018 019 KATHY Not available 9 16:40:32 Procedures None recorded. Surgeries None recorded. Imaging None recorded. Medication Orders Lantus Solostar U-100 Insulin 100 unit/mL (3 mL) subcutane ous pen 2018 019 [email or web address] [facility]armacy #2339, [address] [place] [address], [place], [address], 9 16:07:07 mirtazapi ne 30 mg tablet 2018 019 INTERFACE [facility]armacy #2339, [address] [place] [address], [place], [address], 9 09:37:51 venlafaxi ne ER 75 mg capsule,e xtended release 24 hr [address] [facility]/Pharmacy #2339, [address] [place] [address], [place], [address], 9 11:06:36 mirtazapi ne 15 mg tablet 2018 019 berenice [facility]/Pharmacy #2339, [address] [place] [address], [place], [address], 9 16:22:14 venlafaxi ne ER 75 mg capsule,e xtended release 24 hr [address] [facility]armacy #2339, [address] [place] [address], [place], [address], 9 11:06:36 Nitrostat 0.4 mg sublingua l tablet 2018 019 INTERFACE [facility]armacy #2339, [address] [place], [place] [address] [place], [address], 9 10:55:03 Patient Targets Encounter Date Encounter Id Patient Goals Patient Target Last Modified By Organization Details Last Modified Time 01/03/2019 [id number] Ongoing of Microalbumin/Cre atinine Ratio yearly Not [...] Not available Not available Not available 01/03/2019 [id number] Pt advised and agrees to do moderate [...] By Organization Details Last Modified Time 09/19/2018 [id number] Nutrition Referral and Weight Management Follow-up Information berenice Not available 09/19/2018 10:55:01 anemia: care instructions awychowski Not available 09/19/2018 10:55:01 10/20/2018 [id number] Diabetic Foot Exam awychowski Not available 10/20/2018 [...] appt. awgabrielowski Not available 10/20/2018 14:49:41 11/17/2018 [id number] learning about type 2 diabetes nbarrows Not available 12/05/2018 09:37:50 type 2 diabetes: care instructions nbarrows Not available 12/05/2018 09:37:50 high blood pressure: care instructions awychowski Not available 11/17/2018 16:40:11 learning about high blood pressure awychowski Not available 11/17/2018 16:40:11 12/19/2018 [id number] depression treatment: care instructions awychowski Not available 12/19/2018 11:34:58 high blood pressure: care instructions awychowski Not available 12/19/2018 11:34:58 learning about high blood pressure awychowski Not available 12/19/2018 11:34:58 non fasting labs in 4 weeks. awychowski Not available 12/19/2018 11:34:56 01/03/2019 [id number] hypoglycemia: care instructions Not available 01/03/2019 16:07:07 Medications (OTC, herbal therapies, supplements) reviewed and reconciled with patient and or caregiver, including potential side effects, drug interactions, instructions, and the consequences of not taking medication. Reviewed potential barriers to medication adherence, such as side effects from medication or cost of medication. rkanu Not available 01/03/2019 14:22:39 Reason for Referral Accounting Teacher/dietitian Refer ral for Underweight Referring Physician: Glynn Hernández [facility], Encounter Date: 09/19/2018 Diabetic Ophthalmology Refer ral for Diabetic distal sensorimotor polyneuropathy Referring Physician: Glynn Hernández [facility], Encounter Date: 10/20/2018 Masonry Installer Referral for Anemia for eval of pt with anemia and wt loss Referring Physician: Glynn Hernández [facility], Encounter Date: 10/20/2018 Pain Management Referral for Diabetic distal sensorimotor polyneuropathy for follow up on pt with chronic worsenign neuropathy Referring Physician: Glynn Hernández [facility], Encounter Date: 11/17/2018 Results Created Date Observation Date Name Description Value Unit Range Abnormal Flag Note LastModifiedBy Organization Detail LastModifiedTime 08/22/1908/22/2018 CBC w/ auto diff WBC 8.6 K/mm3 (4.0-1 1.0) Not Available [facility] (Centralized Electronic Ordering - All Locations) Patient Can Go To The Location Of Their Choice, [id number] 08/22/2018 15:48:49 08/22/1908/22/2018 CBC w/ auto diff RBC 3.29 M/mm3 (4.70- 6.10) low Not Available [facility] (Centralized Electronic Ordering - All Locations) Patient Can Go To The Location Of Their Choice, [id number] 08/22/2018 15:48:49 08/22/1908/22/2018 CBC w/ auto diff [...] TEST PERFO RMED USING THE VETO ELECT StremorU MINEAlchip CENCE TOTAL PSA ASSAY . PSA VALUE [...] Go To The Location Of Their Choice, [id number] 10/20/2018 20:12:23 10/21/19 19 10/20/2018 HbA1c (hemo [...] Go To The Location Of Their Choice, [id number] 10/20/2018 22:55:14 11/24/1911/23/2018 CBC w/ auto diff [...] Go To The Location Of Their Choice, [address] 01/03/2019 18:33:34 01/04/2001/03/2019 urina lysis , compl ete sp. gravity 1.018 (1.002 -1.030 ) Not Available [facility] (Centralized Electronic Ordering - All Locations) Patient Can Go To The Location Of Their Choice, 01/03/2019 18:33:34 01/04/2001/03/2019 urina lysis , compl ete urine pH 5.0 (5.0-8 .0) Not Available [facility] (Centralized Electronic Ordering - All Locations) Patient Can Go To The Location Of Their Choice, [address] 01/03/2019 18:33:34 01/04/2001/03/2019 urina lysis , compl ete urine albumin 1+ (neg) abnormal Not Available [facility] (Centralized Electronic Ordering - All Locations) Patient Can Go To The Location Of Their Choice, [address] 01/03/2019 18:33:34 01/04/2001/03/2019 urina lysis , compl ete urine glucose 2+ (neg) abnormal Not Available [facility] (Centralized Electronic Ordering - All Locations) Patient Can Go To The Location Of Their Choice, [address] 01/03/2019 18:33:34 01/04/2001/03/2019 urina lysis , compl ete urine ketones NEGATI VE (neg) Not Available [facility] (Centralized Electronic Ordering - All Locations) Patient Can Go To The Location Of Their Choice, 01/03/2019 18:33:34 01/04/2001/03/2019 urina lysis , compl ete urine bilirubin NEGATI VE (neg) Not Available [facility] (Centralized Electronic Ordering - All Locations) Patient Can Go To The Location Of Their Choice, [id number] 01/03/2019 18:33:34 01/04/2001/03/2019 urina lysis , compl ete urine hemoglobin NEGATI VE (neg) Not Available [facility] (Centralized Electronic Ordering - All Locations) Patient Can Go To The Location Of Their Choice, [id number] 01/03/2019 18:33:34 01/04/2001/03/2019 urina lysis , compl ete urine nitrite NEGATI VE (neg) Not Available [facility] (Centralized Electronic Ordering - All Locations) Patient Can Go To The Location Of Their Choice, [id number] 01/03/2019 18:33:34 01/04/2001/03/2019 urina lysis , compl ete urine leukocyte NEGATI VE (neg) Not Available [facility] (Centralized Electronic Ordering - All Locations) Patient Can Go To The Location Of Their Choice, [address] 01/03/2019 18:33:34 01/04/2001/03/2019 urina lysis , compl ete urobilinogen NORMAL mg/dL (norm) Not Available [facility] (Centralized Electronic Ordering - All Locations) Patient Can Go To The Location Of Their Choice, [id number] 01/03/2019 18:33:34 01/04/2001/03/2019 urina lysis , compl ete urine WBC's 1 /hpf (0-5) Not Available [facility] (Centralized Electronic Ordering - All Locations) Patient Can Go To The Location Of Their Choice, [address] 01/03/2019 18:33:34 01/04/2001/03/2019 urina lysis , compl ete urine RBC's 2 /hpf (<3) Not Available [facility] (Centralized Electronic Ordering - All Locations) Patient Can Go To The Location Of Their Choice, [id number] 01/03/2019 18:33:34 01/04/2001/03/2019 urina lysis , compl ete mucus SLIGHT /lpf Not Available [facility] (Centralized Electronic Ordering - All Locations) Patient Can Go To The Location Of Their Choice, [id number] 01/03/2019 18:33:34 01/04/2001/03/2019 CMP, serum or plasm a glucose 134 mg/dL (70-99 ) high Not Available [facility] (Centralized Electronic Ordering - All Locations) Patient Can Go To The Location Of Their Choice, [address] 01/03/2019 18:48:40 01/04/2001/03/2019 CMP, serum or plasm [...] Go To The Location Of Their Choice, [id number] 01/03/2019 18:49:41 01/04/2001/03/2019 CBC w/ auto diff abs. NRBC 0.0 K/mm3 Not Available [facility] (Centralized Electronic Ordering - All Locations) Patient Can Go To The Location Of Their Choice, [id number] 01/03/2019 18:49:41 01/04/2001/03/2019 HbA1c (hemo globi n [...] Go To The Location Of Their Choice, [id number] 01/03/2019 22:21:36 01/04/2001/03/2019 HbA1c (hemo globi n [...] Go To The Location Of Their Choice, [address] 01/03/2019 22:21:53 01/04/2001/03/2019 hemog lobin A1C, finge rstic k HbA1c 6.7% Not Available In-Office Order Internal Use Only DO Not Attach Compendium DO Not Attach Compendium, Do Not Delete/merge, [id number] 01/03/2019 14:43:15 09/08/19 19 09/08/2018 XR, chest [...] I agree with this report . WSN: [id number] Dictat ed By: Sherwin Malcolm MD Dictat ed Date/T gerri: 11:08 a Review ed By: Henry Slater MD Signed By: Henry Slater MD Signed Date/T gerri: 11:13 am Transc ribed By: ANNY Transc ribed Date/T gerri: 10:39 am Patien t [facility] [address], [place], [address], 09/19/2018 10:45:52 09/14/19 19 09/14/2018 US, abdom [...] nal aorta measur ing 1.8 cm. WSN: [id number] Dictat ed By: Vy Duque MD Dictat ed Date/T gerri: 9:01 am Review ed By: Vy Duque MD Signed By: Vy Duque MD Signed Date/T gerri: 9:01 am Transc ribed By: ANNY Transc ribed Date/T gerri: 8:58 am Patien t Class: Outpat ient [facility] (Outpt Imaging) [address] [place], [address], 09/19/2018 10:45:52 09/30/19 19 09/27/2018 regad enoso n stres s test (PROC ) No observ ation record ed. [facility] [address] [place], [address], 10/20/2018 14:22:03 11/09/19 19 11/08/2018 CT, chest [...] at the head of pancre as. WSN: [id number] Dictat ed By: Elise Srinivasan MD Dictat ed Date/T gerri: 3:47 pm Review ed By: Elise Srinivasan MD Signed By: Elise Srinivasan MD Signed Date/T gerri: 3:47 pm Transc ribed By: ANNY Transc ribed Date/T gerri: 3:29 pm Patien t Class: Outpat ient [facility] (Outpt Imaging) [address] [place], [address], 11/17/2018 16:12:28 12/14/19 20 12/11/2019 trans -thor acic echoc ardio gram (TTE) (PROC ) No observ ation record ed. [facility] [address] [place], [address], 12/17/2019 22:16:50 Result Notes Documentation Provider Name [...] duct at the head of pancreas. WSN: [id number] Dictated By: Elise Srinivasan MD Dictated Date/Time: 11/08/18 3:47 pm Reviewed By: Elise Srinivasan MD Signed By: Elise Srinivasan MD Signed Date/Time: 11/08/18 3:47 pm Transcribed By: ANNY Transcribed Date/Time: 11/08/18 3:29 pm Patient Class: Outpatient Glynn Hernández MD [address] [facility] [address], [place], [address], [facility] [place] 11/17/2018 16:12:28 Problems Name Problem SNOMED Code Status Onset Date Resolution Date Notes Provider Name and Address Organization Details Recorded Time Anemia 621954654 Active Not Available [facility] 0 18:23:48 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 21169878 Completed 05/30/2017 Glynn Hernández MD [address], [address] , [place] [facility] 7 11:34:19 Coronary atherosc lerosis 025653717 Active Not Available [facility] 0 18:23:47 Uncontro lled type 2 diabetes mellitus 266872328 Completed 12/23/2016 STORY: DOMINGO BURROWS RN [phone] /ANA PAULA Hernández MD [address], [place], [address] , [facility] 7 12:06:51 [facility] hyperten kali 01144651 Active Not Available [facility] 0 18:23:47 Gastroes ophageal reflux disease 410381557 Active Not Available [facility] 0 18:23:47 Pure hypercho lesterol emia 771969506 Active Not Available [facility] 0 18:23:47 Mononeur itis 70899053 Active Not Available [facility] 0 18:23:47 Chronic pancreat itis 580218500 Active Not Available [facility] 0 18:23:47 Neuropat hy due to diabetes mellitus 146594945 Active Not Available [facility] 0 18:23:47 Body mass index 25-29 - overweig ht 486558017 Completed 05/30/2017 Glynn Hernández MD [address], [place], [address] , [facility] 7 11:32:22 Type 2 diabetes mellitus 40365182 Completed 12/05/2018 Removal Reason[facility] 09:38:09 Mitral valve regurgit ation 21425330 Active Not Available [facility] 0 18:23:47 Pain of multiple joints 26840455 Active Not Available [facility] 0 18:23:48 Well controll ed type 2 diabetes mellitus 333777306 Completed 01/03/2019 Soledad Peck PA-C [address], [place], [address] , [facility] 9 14:34:20 Pain of shoulder region 37308228 Completed 10/20/2018 Glynn Hernández MD [address] [address], [place], [address] , [facility] 9 14:39:07 Christine talavera Completed 05/30/2017 Glynn Hernández MD [address] [address], [place], [address] , [facility] 7 11:32:31 Serum creatini ne above referenc e range 537836700 Active Not Available [facility] 0 18:23:47 Diabetic distal sensorim otor polyneur opathy Active Not Available [facility] 0 18:23:47 Knee pain Active Not Available [facility] 0 18:23:47 Hyperkal emia 09779700 Completed 11/19/2016 Glynn Hernández MD [address] [address], [place], [address] , [facility] 08:25:48 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 WILL TREAT SYMPTOMA TICALLY AND COVER FOR BACTERIA L SOURCE IF PERSISTA NT.; RECORDED 06/28/20 12 3:37PM BY SHERYL PAREDES MA, ANNOTATI ON/GUERLINEEN RENATO Hernández MD [address] [facility] [address], [place], [address] , [facility] 6 10:12:45 Shoulder joint pain 988572761 Completed 201103/04/2014 IMPRESSI ON: PERSISTA NT DESPITE CONSERVA TICVE THERAPY. WILL SEE WHAT ORTHO THINKS.; RECORDED 06/28/20 12 3:37PM BY SHERYL PAREDES MA, ANNOTATI ON/CORDELL Hernández MD [address] [address], [place], [address] , [facility] 10:12:45 Cough 32197189 Completed 201102/05/2014 IMPRESSI ON: SYMPTOMS PRESENT JUST UNDER 1 WEEK. WILL TREAT SYMPTOMA TICALLY AND COVER FOR BACTERIA L SOURCE IF PERSISTA NT.; RECORDED 06/28/20 12 3:37PM BY SHERYL PAREDES MA, ANNOTATI ON/CORDELL Hernández MD [address] [address], [place], [address] , [facility] 10:12:45 Shoulder joint pain 825768768 Completed 201102/05/2014 IMPRESSI ON: PERSISTA NT DESPITE CONSERVA TICVE THERAPY. WILL SEE WHAT ORTHO THINKS.; RECORDED 06/28/20 12 3:37PM BY SHERYL PAREDES MA, ANNOTATI ON/CORDELL Hernández MD [address] [address], [place], [address] , [facility] 6 10:12:45 [facility]entia l hyperten kali 57650611 Completed 201202/05/2014 RECORDED 08/07/19 13 2:35PM BY SHERYL PAREDES MA, CATRACHITOATI ON/CORDELL Hernández MD [address] [address], [place], [address] , [facility] 6 10:12:45 Tobacco user 670883622 Completed 201203/04/2014 RECORDED 09/07/19 13 2:45PM BY SHERYL PAREDES MA, ANNOTATI ON/ADDEN DUM Glynn Hernández MD [address], [place], [address] , [facility] 10:12:45 Tobacco user [id number] Completed 201202/05/2014 RECORDED 09/07/19 13 2:45PM BY SHERYL PAREDES MA, ANNOTSARAN ON/CORDELL Hernández MD [address], [place], [address] , [facility] 10:12:45 History of clinical finding in subject 611600821 Completed 201203/08/2014 RECORDED 09/07/19 13 2:45PM BY SHERYL PAREDES MA, ANNOTATI ON/ADDAMBER Hernández MD [address] [facility] [address], [place], [address] , [facility] 6 10:12:45 Follow-u p encounte r Completed 201203/04/2014 RECORDED 03/16/20 13 11:54AM BY ELEAZAR OAKES MA, ANNOTSARAN ON/CORDELL Hernández MD [address] [facility] [address], [place], [address] , [facility] 6 10:12:45 Follow-u p encounte r Completed 201202/05/2014 RECORDED 03/16/20 13 11:54AM BY ELEAZAR OAKES MA, ANNOTATI ON/CORDELL Hernández MD [address] [facility] [address], [place], [address] , [facility] 10:12:45 Influenz a vaccine needed 55500006745 06 Completed 201203/04/2014 RECORDED 04/06/20 13 1:37PM BY LAKSHMI STEARNS MA, OFFICE VISIT Glynn Hernández MD [address] [facility] [address], [place], [address] , [facility] 10:12:45 Influenz a vaccine needed 50441385715 06 Completed 201202/05/2014 RECORDED 04/06/20 13 1:37PM BY LAKSHMI STEARNS MA, OFFICE VISIT Glynn Hernández MD [address] [facility] [address], [place], [address] , [facility] 10:12:45 Abdomina l pain 69065378 Completed 201203/04/2014 IMPRESSI ON: HAS RISK FACTORS FOR GASTRITI S. WILL START PPI EMPIRICA LLY WHILE WAITING FOR GI F/U.; RECORDED 04/10/20 13 3:36PM BY LAKSHMI STEARNS MA, ANNOTSARAN ON/ADDEN RENATO Hernández MD [address] [facility] [address], [place], [address] , [facility] 10:12:45 Adult health examinat ion Completed 201203/04/2014 IMPRESSI ON: WILL UPDATE IMMUNIZA TION STATUS AND SCREEN BASED ON RISK FACTORS. REGULAR DENTAL CARE AND SEATBELT USE ADVISED. DISTRACT ED DRIVING DISCUSSE D. COLON CANCER SCREENIG N UTD. PROSTATE CANCER SCREENIN G TAILORED BASED ON RISK FACTORS. ; RECORDED 04/10/20 13 3:36PM BY LAKSHMI STEARNS MA, SAMMY ON/CORDELL Hernández MD [address] [facility] [address], [place], [address] , [facility] 10:12:45 Abdomina l pain 63873364 Completed 201202/05/2014 IMPRESSI ON: HAS RISK FACTORS FOR GASTRITI S. WILL START PPI EMPIRICA LLY WHILE WAITING FOR GI F/U.; RECORDED 04/10/20 13 3:36PM BY LAKSHMI STEARNS MA, SAMMY ON/CORDELL Hernández MD [address] [facility] [address], [place], [address] , [facility] 10:12:45 Adult health examinat ion Completed 201202/05/2014 IMPRESSI ON: WILL UPDATE IMMUNIZA TION STATUS AND SCREEN BASED ON RISK FACTORS. REGULAR DENTAL CARE AND SEATBELT USE ADVISED. DISTRACT ED DRIVING DISCUSSE D. COLON CANCER SCREENIG N UTD. PROSTATE CANCER SCREENIN G TAILORED BASED ON RISK FACTORS. ; RECORDED 04/10/20 13 3:36PM BY LAKSHMI STEARNS MA, CATRACHITOATI ON/CORDELL Hernández MD [address] [facility] [address], [place], [address] , [facility] 10:12:45 Type 2 diabetes mellitus without complica tion 476855905 Completed 201303/04/2014 RECORDED 08/10/19 14 11:00AM BY ELEAZAR OAKES MA, SAMMY ON/CORDELL Hernández MD [address] [facility] [address], [place], [address] , [facility] 10:12:45 Laborato ry procedur e performe d 197139914 Completed 201303/04/2014 RECORDED 08/10/19 14 10:59AM BY ELEAZAR OAKES MA, SAMMY ON/CORDELL Hernández MD [address] [address], [place], [address] , [facility] 10:12:45 Mononeur itis of lower limb Completed 201303/04/2014 RECORDED 08/10/19 14 11:00AM BY ELEAZAR OAKES MA, SAMMY ON/CORDELL Hernández MD [address] [facility] [address], [place], [address] , [facility] 10:12:45 Type 2 diabetes mellitus without complica tion 739383940 Completed 201302/05/2014 RECORDED 08/10/19 14 11:00AM BY ELEAZAR OAKES MA, SAMMY ON/CORDELL Hernández MD [address], [place], [address] , [facility] 10:12:45 Laborato ry procedur e performe d 015801750 Completed 201302/05/2014 RECORDED 08/10/19 14 10:59AM BY ELEAZAR OAKES MA, SAMMY KELSEY/CORDELL Hernández MD [address], [place], [address] , [facility] 10:12:45 Mononeur itis of lower limb Completed 201302/05/2014 RECORDED 08/10/19 14 11:00AM BY ELEAZAR OAKES MA, SAMMY ON/CORDELL Hernández MD [address] [facility] [address], [place], [address] , [facility] 10:12:45 Lipoma 26194980 Completed 201303/04/2014 IMPRESSI ON: MOST LIKELY DIAGNOSI S. REASSURA NCE PROVIDED . IF CHANGES OR BECOMES UNCOMFOR TABLE WILL EVALUATE FURTHER. ; RECORDED 10/12/19 14 12:56PM BY LAKSHMI STEARNS MA, SAMMY ON/CORDELL Hernández MD [address] [facility] [address], [place], [address] , [facility] 10:12:45 Lipoma 15002837 Completed 201302/05/2014 IMPRESSI ON: MOST LIKELY DIAGNOSI S. REASSURA NCE PROVIDED . IF CHANGES OR BECOMES UNCOMFOR TABLE WILL EVALUATE FURTHER. ; RECORDED 10/12/19 14 12:56PM BY LAKSHMI STEARNS MA, SAMMY KELSEY/CORDELL Hernández MD [address], [place], [address] , [facility] 10:12:45 Renewal of prescrip tion Completed 201303/04/2014 RECORDED 11/16/19 14 1:29PM BY LAKSHMI STEARNS MA, SAMMY ON/CORDELL Hernández MD [address] [facility] [address], [place], [address] , [facility] 10:12:45 Pleural effusion 84619531 Completed 201303/04/2014 IMPRESSI ON: WORSE SINCE IN THE HOSPITAL 2 WEEKS AGO. GAVE HIM CHOICE OF ER OR SEEING PULMONAR Y NEXT WEEK. HE WOULD LIKE TO WAIT. HE WILL GO TO ER IF ANY FEVERS, ANY WORSENIN G PAIN.; RECORDED 11/16/19 14 2:08PM BY GLYNN Macias MD, SAMMY ON/CORDELL Hernández MD [address] [facility] [address], [place], [address] , [facility] 10:12:45 Uncontro lled type 2 diabetes mellitus 317319470 Completed 201302/05/2014 IMPRESSI ON: BASED ON HOME MEASUREM ENTS CONTROL IS INADEQUA TE. WILL MAXIMIZE METFORMI N DOSE AND RECHECK LABS.; RECORDED 11/16/19 14 1:29PM BY LAKSHMI STEARNS MA, SAMMY ON/CORDELL Hernández MD [address] [facility] [address], [place], [address] , [facility] 12:06:51 Renewal of prescrip tion Completed 201302/05/2014 RECORDED 11/16/19 14 1:29PM BY LAKSHMI STEARNS MA, SAMMY KELSEY/CORDELL Hernández MD [address] [facility] [address], [place], [address] , [facility] 10:12:45 Pleural effusion 94242928 Completed 201302/05/2014 IMPRESSI ON: WORSE SINCE IN THE HOSPITAL 2 WEEKS AGO. GAVE HIM CHOICE OF ER OR SEEING PULMONAR Y NEXT WEEK. HE WOULD LIKE TO WAIT. HE WILL GO TO ER IF ANY FEVERS, ANY WORSENIN G PAIN.; RECORDED 11/16/19 14 2:08PM BY GLYNN Macias MD, ANNOTATI ON/CORDELL Hernández MD [address] [facility] [address], [facility] [place], [address] , [facility] 10:12:45 Pneumoni a 710965362 Completed 201303/08/2014 IMPRESSI ON: RADIOLOG IST READ STATES THERE MAY STILL BE CONSOLID ATION IN LUNG. PULMONAR Y TO REASSESS NEXT WEEK; RECORDED 11/16/19 14 1:34PM BY LAKSHMI STEARNS MA, OFFICE VISIT Glynn Hernández MD [address] [facility] [address], [facility] [place], [address] , [facility] 10:12:45 Pneumoni a [id number] Completed 201303/04/2014 IMPRESSI ON: RADIOLOG IST READ STATES THERE MAY STILL BE CONSOLID ATION IN LUNG. PULMONAR Y TO REASSESS NEXT WEEK; RECORDED 01/10/20 14 5:46PM BY GLYNN Macias MD, ANNOTATI ON/CORDELL Hernández MD [address] [facility] [address], [facility] [place], [address] , [facility] 10:12:45 Chronic kidney disease stage 3 948223496 Active 2016 Not Available [facility] 0 18:23:47 Bilatera l tinnitus 85178435145 02 Active 2017 Not Available [facility] 0 18:23:47 Sensorin eural hearing loss 87767818 Active 2017 Not Available [facility] 0 18:23:47 Albuminu charlie 911430673 Active 2018 Not Available [facility] 0 18:23:47 Dilatati on of aorta 37988575 Active 2018 1.8 cm abdomina l Not Available [facility] 0 18:23:47 Steatoti c liver disease 187444286 Active 2018 Not Available [facility] 0 18:23:47 Recurren t major depressi on 29909749 Active 2018 Not Available [facility] 0 18:23:47 Renal disorder due to type 2 diabetes mellitus 894268761 Active 2018 Not Available [facility] 0 18:23:48 Narrow angle of anterior chamber of left eye 84441166854 193932 Active 2018 Not Available [facility] 0 18:23:47 Nuclear cataract 40313699 Active 2018 Not Available [facility] 0 18:23:48 Aortic root dilatati on 510871611 Active 2019 Not Available [facility] 0 18:23:47 Noncompl iance with medicati on regimen 746961771 Active 2020 Glynn Hernández MD [address] [address], [place], [address] , [facility] 22:01:23 Notes:Some problems listed i n Documents: #[id number], #[id number], #[id number], #[id number], #[id number], #[id number], #[id number], #[id number] could not be added to this patient's chart. Please review these documents and add these problems to the patient's chart manually as needed. Problem Notes None recorded. Procedures Surgical History Date Name Laterality Status Provider Name and Address Organization Details Recorded Time 12/11/19 20 Echo transthoracic completed Glynn Hernández MD [address], [address], [facility] 12/17/2019 22:15:25 01/16/20 19 iridotomy completed Glynn Hernández MD [address], [address], [facility] 01/31/2019 10:16:14 01/04/20 19 Diabetic Foot Exam (Monofilament) completed [facility] 01/03/2019 14:22:39 10/31/19 19 angiography of coronary artery completed Glynn Hernández MD [address] [facility], [place], [address], [facility] 11/17/2018 16:23:33 09/28/19 19 radionuclide imaging of perfusion of myocardium under exercise stress completed Glynn Hernández MD [address] [facility], [place], [address], [facility] 10/02/2018 14:15:32 10/16/19 17 Colonoscopy completed Lakshmi Stearns MA [facility] 11/18/2016 11:20:22 03/11/20 16 Stress Test completed Glynn Hernández MD [address] [facility], [place], [address], [facility] 03/21/2016 10:16:26 11/05/19 15 Echo Transthoracic completed Glynn Hernández MD [address] [place] [address], [address], [facility] 11/07/2014 17:34:46 09/25/19 15 CABG completed Glynn Hernández MD [address] [facility] [address] [facility], [place], [address], [facility] 09/29/2014 12:48:27 01/23/20 12 Imaging, cardiac cath completed Glynn Hernández MD [address] [facility] [address] [place] [address], [address], [facility] 09/17/2014 09:24:50 01/23/20 12 Cardiac Surgery completed Glynn Hernández MD [address] [place] [address], [address], [facility] 10/20/2018 14:20:26 06/24/20 06 Colonoscopy completed Lakshmi Stearns MA [facility] 06/13/2014 11:12:06 01/23/20 01 Cardiac Surgery completed Lakshmi Stearns MA [facility] 02/24/2016 13:01:28 Tonsillectomy completed Lakshmi Stearns [place] [facility] 02/24/2016 13:01:28 Orthopedic Surgery completed Lakshmi Stearns MA [facility] 02/24/2016 13:01:28 Imaging Results None recorded. Procedure Notes None recorded. Medical Equipment None Reported. Allergies Allergen ID Allergen Name Allergen Category Reaction Reaction Severity Criticality Documentation Date Start Date Code Code System Note Provider Name and Address Organization Details Recorded Time 89001 codeine medicatio n other Not available Not available 05/18/20212013 2670 RxNorm Aimee Courtney rojas, [facility] 1 10:42:54 4674 codeine sulfate medicatio n tachycard ia Not available Not available 02/05/20142013 46525 RxNorm Glynn Hernández MD [address] [facility] [address], [place], [address], [facility] 11:31:43 Medications Name Sig Start Date [...] pt needs this script sent to [facility] while waiting 2 weeks for mail order [...] 14 11:05AM BY ELEAZAR OAKES MA, OFFICE VISIT;[facility] 07/26/13 IN EVENING Not Available Not Available [...] Available Not Available Not Available Fluarix Quad 2414-9773 (PF) 60 mcg (15 mcg x 4)/0.5 [...] Updated DateTime 9 175.9 cm 18.2 kg/m2 22805.4 5 g 65 /min 96.8 [degF] 98 % 98 % 101/69 mm[Hg] Lakshmi Stearns MA [facility] 9 10:24:44 Date Recorded Body height Body mass index (BMI) Body weight Heart rate Oxygen saturation Oxygen saturation in Arterial blood by Pulse oximetry Body temperature Systolic And Diastolic Provider Name and Address Organization Details Last Updated DateTime 9 175.9 cm 20.2 kg/m2 01195.7 5 g 79 /min 97 % 97 % 98.3 [degF] 108/69 mm[Hg] Lakshmi Stearns MA [facility] 9 14:10:15 Date Recorded Body height Body mass index (BMI) Body weight Heart rate Oxygen saturation Oxygen saturation in Arterial blood by Pulse oximetry Body temperature Systolic And Diastolic Provider Name and Address Organization Details Last Updated DateTime 9 175.9 cm 21.3 kg/m2 61601.8 9 g 60 /min 100 % 100 % 98.7 [degF] 112/74 mm[Hg] Lakshmi Stearns MA [facility] 9 15:41:31 Date Recorded Body height Body temperature Oxygen saturation Oxygen saturation in Arterial blood by Pulse oximetry Heart rate Body mass index (BMI) Body weight Systolic And Diastolic Provider Name and Address Organization Details Last Updated DateTime 9 175.9 cm 97.7 [degF] 98 % 98 % 60 /min 21.3 kg/m2 47231.8 9 g 103/67 mm[Hg] Lakshmi Stearns MA [facility] 9 11:13:44 Date Recorded Body height Body mass index (BMI) Body weight Heart rate Oxygen saturation Oxygen saturation in Arterial blood by Pulse oximetry Systolic And Diastolic Provider Name and Address Organization Details Last Updated DateTime 9 175.9 cm 22 kg/m2 54623.9 6 g 68 /min 96 % 96 % 126/80 mm[Hg] Margaret Martinezu [facility] 9 14:26:55 Social History Question Answer Notes LastModified by Organizat ion Details LastModified Time Tobacco Smoking Status Former Smoker quit 2008 Not Available [facility] 05/27/2020 03:36:41 Do You Have An Advance Directive? Yes HCP/ Girlfriend-Sh justine [id number] Information not available 05/27/2020 Is Blood Transfusion Acceptable In An Emergency? Yes [id number] Information not available 05/27/2020 What Is Your Level Of Caffeine Consumption? None [id number] Information not available 05/27/2020 How Much Tobacco Do You Chew? None [id number] Information not available 05/27/2020 What Type Of Diet Are You Following? CARDIAC [id number] Information not available 05/27/2020 Which Illicit Or Recreational Drugs Have You Used? None [id number] Information not available 05/27/2020 Live Alone Or [...] Of Your Most Recent Tobacco Screening? 01/03/2019 [id number] Information not available 05/27/2020 How Many Children Do You Have? 2 Sons [id number] Information not available 05/27/2020 Seat Belts Used Routinely Yes Information not available 06/13/2014 Are You Sexually Active? Yes [id number] Information not available 05/27/2020 Smoke Alarm In Home Yes Information not available 02/24/2016 At What Age Did You Start Smoking Tobacco? 20 [id number] Information not available 05/27/2020 Are You Passively Exposed To Smoke? Yes Information not available 02/24/2016 How Much Tobacco Do You Smoke? 0.5 PPD [id number] Information not available 05/27/2020 Do You Use Sunscreen Routinely? Yes [id number] Information not available 05/27/2020 How Many Years Have You Smoked Tobacco? 33 [id number] Information not available 05/27/2020 Sex: Unknown Functional Status Question Answer Note LastModified by Organizat ion Details LastModified Time What is your level of alcohol consumption? Occasional wine [id number] Information not available 05/27/2020 Are you currently employed? No [id number] Information not available 05/27/2020 Are you able to care for yourself independently? Yes [id number] Information not available 05/27/2020 What is your occupation? retired [employer] [facility] Information not available 06/13/2014 What is your exercise level? None [id number] Information not available 05/27/2020 Mental Status None [...] high-dose, trivalent, PF 4 completed Not Available [facility] 04/18/2020 18:23:48 Influenza, high-dose, trivalent, PF 5 completed Not Available [facility] 04/18/2020 18:23:48 Influenza, split virus, quadrivalent, preservative 6 completed Not Available [facility] 04/18/2020 18:23:48 Influenza, MDCK, quadrivalent, PF 8 completed Aimee xie [facility] 05/18/2021 10:43:09 Influenza, MDCK, quadrivalent, PF 9 completed Aimee xie [facility] 05/18/2021 10:43:09 Influenza, split virus, quadrivalent, PF 7 completed Not Available [facility] 08/11/2019 02:22:11 Tdap 9 completed Not Available [facility] 08/11/2019 02:21:49 influenza, seasonal, intradermal, preservative free 2 completed Not Available [facility] 04/18/2020 18:23:48 influenza, seasonal, intradermal, preservative free 3 completed Not Available [facility] 04/18/2020 18:23:48 Tdap 8 completed Not Available [facility] 04/18/2020 18:23:48 pneumococcal conjugate PCV 7 8 completed Not Available [facility] 04/18/2020 18:23:48 pneumococcal polysaccharide PPV23 4 completed Not Available [facility] 04/18/2020 18:23:48 Past Encounters Encounter ID Performer Location Encounter Start Date Encounter Closed Date Diagnosis/Indication Diagnosis SNOMED-CT Code Diagnosis ICD10 Code Diagnosis IMO Codes Diagnosis Note [id number] autoEComm erce [address] [facility] [place] [address] 06/05/2012 00:00:00 [id number] autoEComm erce [address] [facility] [place] [address] 08/07/2012 00:00:00 [id number] autoEComm erce [address] [facility] [place] [address] 11/15/2012 00:00:00 [id number] autoEComm erce [address] [facility] [place] [address] 04/06/2013 00:00:00 [id number] autoEComm erce [address] [facility] [place] [address] 07/04/2013 00:00:00 [id number] autoEComm erce [address] [facility] [place] [address] 08/10/2013 00:00:00 [id number] autoEComm erce [address] [facility] [place], [place] [address] 10/03/2013 00:00:00 [id number] autoEComm erce [address] [facility] [place], [place] [address] 11/15/2013 00:00:00 [id number] autoEComm erce [address] [facility] [place], [place] [address] 12/14/2013 00:00:00 [id number] Glynn Hernández MD Main Office [address] [facility] [address] [place], [place] [address] 03/08/2014 15:04:54 03/08/2014 15:59:04 Uncontrolled type 2 diabetes mellitus 554671092 Pt has lab orders from November and will have them done myah. Ophtho exam utd. Neuropathy due to diabetes mellitus 305059521 Not responding to gabapentin . Will try Lyrica and titrate as tolerated to goal pain control. Essential hypertension 18965791 Well controlled . Continue current regimen. [id number] Glynn Hernández MD Main Office [address] [facility] [address] [place], [place] [address] 06/13/2014 10:49:55 06/13/2014 12:08:08 Adult health examination 962527112 Immunizati on status utd, will screen based on risk factors. Colon cancer screening utd, prosate cancer screening deffered secondary to low risk. Regular dental and ophtho care advised as well as seatbelt and sunscreen use. Distracted driving discussed. Advance directives in place. Body mass index 25-29 - overweight 522508213 Neuropathy due to diabetes mellitus 944563072 Not responding to gabapentin or lyrica. Will consult neuro for further evalution and treatment recommenda tions. Coronary atherosclerosis 844874587 Asymptomat ic with goal risk factor control. Cntinue current regimen. Uncontroll ed type 2 diabetes mellitus 202966054 Pt has lab orders from November and will have them done myah. Ophtho exam utd. Anemia 996983512 Has been stable. Will follow. [id number] Glynn Hernández MD Main Office [address] [facility] [address] [place] [address] 10/21/2014 14:44:22 10/21/2014 15:41:20 Coronary atherosclerosis 363269476 Asymptomat ic post CABG. Will reassess risk factor control. Cntinue current regimen for now. Essential hypertension 43483544 Well controlled . Continue current regimen. Anemia 396755933 Has been stable. Will follow. Uncontroll ed type 2 diabetes mellitus 599159182 [id number] Glynn Hernández MD Main Office [address] [facility] [address] [place] [address] 01/29/2015 11:15:31 01/29/2015 12:14:47 Essential hypertension 33178241 Well controlled . Continue current regimen. Pain of mu ltiple joints 85099781 Has risk for vitamin D deficiency which may be contributi ng to some of his pain along with neuropathy . Neuropathy due to diabetes mellitus 704420336 Not responding to gabapentin or Lyrica. Had EMG pending with neuro. Will see if Cymbalta helps with his discomfort . Well contr olled type 2 diabetes mellitus 137479234 [id number] Glynn Hernández MD Main Office [address] [facility] [address] [facility] [place] [address] 06/16/2015 10:57:24 06/16/2015 11:56:38 Adult health examination 631037597 Z00.00 Immunizati on status utd, will screen based on risk factors. Colon cancer screening utd, prosate cancer screening deferred secondary to low risk. Regular dental and ophtho care advised as well as seatbelt and sunscreen use. Distracted driving discussed. Advance directives in place. Neuropathy due to diabetes mellitus 594183996 E11.40 Working with neuro to gain better control. Current regimen is affording some relief. Coronary atherosclerosis 625792860 I25.10 Asymptomat ic with goal risk factor control. Continue current regimen. Uncontroll ed type 2 diabetes mellitus 466847055 E11.65 Will reassess control. Ophtho exam utd. Anemia 797298355 D64.9 Has been stable. Will follow. Chronic pancreatitis 235 815917 K86.1 Pain of oulder region 18735367 M25.511 Will call if persistent /worse to try PT and consider PMR/ortho eval. [id number] Glynn Hernández MD Main Office [address] [facility] [address] [place] [address] 10/16/2015 11:29:30 10/16/2015 12:21:59 Type 2 diabetes mellitus 34700243 E11.9 Very well controlled . Will decrease sulfonylur ea dose and see if still needed. Essential hypertension 90523991 I10 Well controlled . Continue current regimen. 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 Will be following up with cards in next few months. Claudication 581323686 I 73.9 Start with PVR and if abnormal try pletal and consult vascular. Neuropathy due to diabetes mellitus 604803027 E11.40 Working with neuro to gain better control. Current regimen is affording some relief. [id number] Richy Peck PA-C Main Office [address] [place] [address] 01/27/2016 12:58:25 01/27/2016 14:09:31 Knee pain 60905851 M25.561 pt states [place] [id number] Richy Peck PA-C Main Office [address] [facility] [address] [place] [address] 02/24/2016 12:49:07 02/24/2016 14:41:36 Knee pain 88707590 M25.561 no sig. help c PT -- will refer to [facility] - ? needs synvisc vs. check CT/MRI - needs arthroscop y? Hyperkalemia 48301585 E8 7.5 Serum crea tinine above reference range 478776672 R79.89 Coronary atherosclerosis 271073831 I25.812 seen by carmen. 8.1 - checked lipids, resumed statin recently - pending stress test in 2 weeks -- d/t above knee pain, ? 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 Arterioscl erosis of coronary artery bypass graft 939581639 I25.810 [id number] Glynn Hernández MD Main Office [address] [facility] [address] [facility] [place] [address] 05/06/2016 10:51:00 05/06/2016 12:03:15 Neuropathy due to diabetes mellitus 011618979 E11.40 Recalcitra nt to neuropathi c pain meds. Will ask PMR for further management recommenda tions. Essential hypertension 79705273 I10 Better on recheck but not at goal. If Cr stable and K level normal will resume 10mg QD. Pt has appt with Dr. Briseno in 2 weeks. Osteoarthr itis of knee 651796243 M17.11 Ask PMR for considerat ion of injection trial or other treatment options. Hypercholesterolemia 136 35988 E78.2 Reassess since resumtion of statin therapy. [id number] Glynn Hernández MD Main Office [address] [place] [address] 11/18/2016 10:58:00 11/18/2016 12:13:19 Pain of multiple joints 07305975 M25.50 ? if related to establishe d OA diagnosis vs neuropathy vs fibromyosi tis vs reactive arthropath y vs autoimmune phenomenon . Will try another pain managament referral. Diabetic d istal sensorimotor polyneuropathy 356519041 E11.42 Diabetes has been well controlled . Continue current regimen. 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 Continue current regimen. Major depr essive disorder 160682388 F32.9 ? if this is the cause or response to his chronic pain issues. Essential hypertension 24589805 I10 Will follow for now and depending on lab results resume low dose ACEI. [id number] Glynn Hernández MD Main Office [address] [facility] [address] [facility] [place] [address] 12/23/2016 11:27:59 12/23/2016 12:26:20 Essential hypertension 65979692 I10 Will titrate BB and follow. Reluctant to resume ACEI given bump in creatinine that occurred last fall when he was on it. Knee pain 39294962 M25.5 61 M25.562 c/w his neuropathy which seems to be improving with venlafaxin e. Will follow. Unexplaine d weight loss 329962896 R63.4 Screen for thyroid disease and significan t pulmonary pathology. Anemia 641122477 D64.9 Had been stable. Will follow. Major depr essive disorder 208055066 F32.9 Will titrate SNRI dose. Bilateral hearing loss 18488296 H91.93 Becoming problemati c. Pt is vaughn sutton further evaluation and treatment. [id number] Glynn Hernández MD Main Office [address] [facility] [address] [facility] [place] [address] 01/20/2017 13:31:07 01/20/2017 14:20:51 Essential hypertension 24647611 I10 Fair control. Continue current dose for now, Reluctant to resume ACEI given bump in creatinine that occurred last fall when he was on it. Knee pain 08345644 M25.5 61 M25.562 c/w his neuropathy which seems to be improving with venlafaxin e. Will follow. Diabetic d istal sensorimotor polyneuropathy 727498615 E11.42 Diabetes has been well controlled . Will decrease metformin dose. Anemia 503804412 D64.9 Had been stable. Will follow. Primary er ectile dysfunction 061908039 N52.9 Pt requesting rx. Has tolerated well in the past and has no contraindi cations. [id number] Glynn Hernández MD Main Office [address] [address] [place] [address] 04/22/2017 10:31:20 04/22/2017 12:23:20 Needs influenza immunization 013253797 Z23 Diabetic d istal sensorimotor polyneuropathy 638268378 E11.42 Will reduce metformin dose and reassess a1c in 3 months.Wor perla with pain mgmt. Ging to start lamictal and considerin [facility] . Essential hypertension 63370441 I10 Will add low dose diuretic for added control and monitor potassium. Screening for malignant neoplasm of prostate 800961565 Z12.5 Check PSA prior to upcoming CAX. [id number] Glynn Hernández MD Main Office [address] [facility] [address] [facility] [place] [address] 05/30/2017 10:57:48 05/30/2017 12:01:29 Adult health examination 895574308 Z00.00 Immunizati on status UTD, shingles advised via local pharmacy. Will screen based on risk factors. Colon cancer screening utd, will check 1 more PSA. Regular dental and ophtho care advised as well as seat belt and sunscreen use. Distracted driving discussed. Advance directives in place. Anemia 975858668 D64.9 Pt will d/c iron and folic acid. Will follow counts with these changes. Pure hypercholesterolemia 510528667 E78.00 LDL at goal. Continue current regimen. Well contr olled type 2 diabetes mellitus 050359281 E11.9 Improved control with weight loss. Will wean metformin dosing as long as A1C stays <6. Diabetic d istal sensorimotor polyneuropathy 986583444 E11.42 Essential hypertension 38134241 I10 Well controlled with addition of diuretic. Will continue current regimen. [id number] Glynn Hernández MD Main Office [address] [facility] [address] [place] [address] 08/22/2018 09:57:31 08/22/2018 11:18:46 Essential hypertension 11588093 I10 Having orthostati c symptoms, so we'll d/c the diuretic and possibly BB if persistent . Type 2 bertram betes mellitus 82451332 E11.9 Fair control. Off of meds. Will defer resuming meds until lab work is done. Unintentio nal weight loss 953824656 R63.4 Based on comorbidit ies needs eval for possible occult malignancy wilian pancreatic /lung. Paresthesia 73703371 R20 .2 Chronic pancreatitis 235 856701 K86.1 Chronic ki dney disease stage 3 721116938 [address]18[address] Briseno next week. Requires a tetanus booster [id number] Z23 Administra tion of viral vaccine 75715375 Z23 [id number] Glynn Hernández MD Main Office [address] [facility] [address] [place] [address] 09/19/2018 10:00:58 09/19/2018 11:03:19 Early satiety 289384328 R68.81 With continued weight loss. Will see if insurance will cover high end imaging now for him. Unintentio nal weight loss 074433741 R63.4 Based on comorbidit ies needs eval for possible occult malignancy wilian pancreatic /lung. Anemia 576384149 D64.9 Refer to heme for further eval if stool is negative for occult blood, to GI if positive. Arterioscl erosis of coronary artery bypass graft 914603978 I25.810 Refill requested. Await results of stress testing. Underweight 087099102 R6 3.6 Z68.1 Patients body weight is below the normal range for age (<18.5). Discussed implicatio ns of low weight such as general health, bone health, immune function, iron absorption . [id number] Glynn Hernández MD Main Office [address] [place] [address] 10/20/2018 13:46:55 10/20/2018 14:53:24 Adult health examination 853793638 Z00.00 Immunizati on status UTD, Shingrix advised via local pharmacy. Will screen based on risk factors. Routine colon and prostate cancer screenign are utd. Regular dental and ophtho care advised as well as seat belt and sunscreen use. Distracted driving discussed. Advance directives in place. Varicella vaccination 68 732204 Z23 Diabetic d istal sensorimotor polyneuropathy 670980104 E11.42 Pt will f/u with ophtho myah. Recurrent major depression 08356880 F33.1 Venlafaxin e not working for mood or pain, so will try mirtazepin e to help with sleep and appetite. Anemia 142698814 D64.9 Insurance wont' cover abdominal imaging for evaluation of this issue and weight loss so will ask GI to consider endoscopie s even though stool cards were negative. Purpura an d/or petechiae 825219329 R23.3 Screen for vasculitis /coagulopa thy Coronary atherosclerosis 493090377 I25.10 Having cardiac cath done next week for abnormal stress test. [id number] Glynn Hernández MD Main Office [address] [place] [address] 11/17/2018 15:20:46 11/17/2018 16:39:55 Essential hypertension 41442045 I10 Well controlled on BB. Will monitor with weight. Recurrent major depression 73766153 F33.1 Mood, appetite and sleep seem to be improving with mirtazapin e. Will titrate and d/c venlafaxin e. Continue slow venlafaxin e wean. Diabetic d istal sensorimotor polyneuropathy 343181857 E11.42 Complicate d, and refractory to numerous nerve modulating medication s. Will re establish care with pain mgmt. Will continue current metformin dosing while monitoring corie function. Will ask Soledad to help with management . Anemia 672504329 D64.9 On procrit via renal. Will follow counts. [id number] Glynn Hernández MD Main Office [address] [facility] [address] [place] [address] 12/19/2018 10:36:36 12/19/2018 11:38:37 Essential hypertension 68611733 I10 Well controlled on BB. Will monitor with weight. Recurrent major depression 77167984 F33.1 Mood, appetite and sleep seem to be improving with mirtazapin e. Will titrate and d/c venlafaxin e. Continue slow venlafaxin e wean. Anemia 978702111 D64.9 On procrit via renal. Will follow counts. Bilateral glaucoma [id number] 3095929 H40.9 per pt report will need repair for closed angle disease. Will request records. Uncontroll ed type 2 diabetes mellitus 955903765 E11.65 Metformin dosing recently titrated. Has appt with VM upcoming. [id number] Henry Romero MD Main Office [address] [facility] [address] [place] [address] 01/03/2019 14:16:54 01/03/2019 15:36:52 Uncontrolled type 2 diabetes mellitus 402685960 E11.65 HGA1c today again is down to [...] CGM log. Diabetic d istal sensorimotor polyneuropathy 833139420 E11.42 Pt. has jason with pain management . Chronic ki dney disease stage 3 360607544 N18.3 F/u with nephrologi st as scheduled. 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 017948334 E11.22 Health Concerns Section Related Observation LastModified by Organization Detai ls LastModified Time None Recorded Concern Status LastModified by Organization Details LastModified Time None Recorded Advance Directives Directive Y: HCP/ Girlfriend-Santa Payers Insurance Date Sequence Insurance Name Policy Number Policy Adorno Covered Member ID Adoron Member ID Guarantor Name 12/14/2018 2 [place] [facility] Quentin Lara [id number] Quentin Lara 03/28/2020 1 [facility] [id number] Quentin Lara [id number] Quentin Lara 12/14/2018 2 [place] [facility] Quentin Lara [id number] Quentin Lara Notes Date Note Type Note [...] Glynn Hernández MD [address], [place], [address], [facility] [place] 09/19/2018 13:08:48 9 text/html Generic HPI TemplateReported by PatientHere for a physical. Seeing ophtho regularly, no dentist. Glynn Hernández MD [address], [place], [address], [facility] [place] 10/20/2018 14:55:32 9 text/html Hypertension F/UReported by [...] in his chronic neuropathic pain. Mely xie, [facility] 12/05/2018 09:38:48 9 text/html Hypertension F/UReported by [...] and eating better. Glynn Hernández MD [address] [address], [place], [address], [facility] [place] 12/19/2018 11:43:59 9 text/html ROS as noted [...] lbs since 2011. Soledad Peck PA-C [address] [address], [place], [address], [facility] [place] 01/03/2019 16:08:47
== END 2025-05-09 09:07 | disposition home or self-care (01) ==
LOC: HO.HMGCX 09:06
PROVIDERS: PCP Internal Medicine; Visit Provider Internal Medicine Gastroenterology
DX: K70.31 Alcoholic cirrhosis of liver with ascites (principal); Z12.89 Encounter for screening for malignant neoplasm of other sites
CPT/HCPCS: 76705

== ENCOUNTER → 2025-05-09 09:13 | Outpatient (BNV) | payer MEDICARE, OTHER, SELFPAY | PROVIDERS: PCP Internal Medicine; Visit Provider Specialist | DX: K70.31 Alcoholic cirrhosis of liver with ascites (principal); K76.0 Fatty (change of) liver, not elsewhere classified | CPT/HCPCS: 76705 ==

== ENCOUNTER 2025-05-27 10:16 | Day surgery (SDC) | payer MEDICARE, OTHER, SELFPAY ==
[2025-05-23 12:34] VITALS: BMI 22.6
--- NOTE | 2025-05-27 09:14 | MHC.SHP ---
Pre-Procedural Eval Section A - 24 Hr Update-Section A only Date of Service: 05/27/25 The patient is an INPATIENT: No The patient has been examined within 24 hours of the surgical procedure. The History & Physical has been completed within 30 days and I have reviewed it.: No Section B - Complete if H&P > 30 days Chief Complaint: Surveillance for colon polyps Relevant Family History (Specify if Yes): No Relevant Social History: Tobacco Use (Former smoker) Present Medications: see Short Stay Collaborative assessment Medical History: Significant History (Ascites Chronic kidney disease GERD (gastroesophageal reflux disease) Macrocytic anemia Chronic diabetic ulcer of right foot determined by examination Anemia Osteomyelitis Hearing difficulty Neuropathy Cataracts, bilateral Bunion Heart attack CAD (coronary artery disease) High cholesterol Diabetes H) History of Previous Operations: Relevant previous surgery/procedure and date(s) (History of esophagogastroduodenoscopy (EGD) H/O colonoscopy Hx of heart artery stent Hx of cystoscopy Hx of endoscopy History of bunionectomy of right great toe H/O rotator cuff surgery H/O heart bypass surgery) Allergies: Allergies Allergy/AdvReac Type Severity Reaction Status Date / Time codeine Allergy Severe SOB, Verified 05/23/25 12:32 diaphoretic Review of Systems Sugical H&P ROS: Negative: Constitution, Cardiovascular, Respiratory and Gastrointestinal Exam Surgical H&P Exam: Normal: Heart, Normal: Lungs, Normal: Extremities and Normal: Abdomen Plan Diagnosis/Plan: Unchanged I have reviewed the history and physical and performed a pertinent physical examination on my patient. No changes have occurred unless specified. Time Spent With Patient Time: Total time managing care of this patient today ____ minutes.
[2025-05-27] MEDS: Lactated Ringers 1,000 ML 50 ML IVCONT (10:30)
[2025-05-27 10:31] VITALS: BP 161/62; PULSE 70; RESP 18; TEMP 36.6; O2SAT 100
[2025-05-27 10:44] LABS: Glucose, Whole Blood 86 mg/dL (60-115)
[2025-05-27 10:52] LABS: Hematocrit 31.6 % (42.0-52.0); Hemoglobin 10.5 g/dl (14.0-18.0); Mean Corpuscular HGB Conc 33.2 g/dl (31.0-36.0); Mean Corpuscular Hemoglobin 29.9 pg (27.0-33.0); Mean Corpuscular Volume 90.0 fL (80.0-98.0); NRBC Abs Auto 0.000 X10*3/uL (0.0-0.012); NRBC Pct Auto 0.0 /100WBC (0.0-0.2); Platelet Count 116 X10*3/uL (160-400); Red Blood Count 3.51 X10*6/uL (4.60-5.80); White Blood Count 6.4 X10*3/uL (4.8-10.8)
--- NOTE | 2025-05-27 10:54 | HO.ANESPROP2 ---
Documented by User: Mili Fan NP 05/24/25 09:33 HPI - Anesthesia Eval Consult details Narrative: 69yo M for Colonoscopy CV: Follows [facility] for CAD c/b PR s/p stents and CABG x 3 (?PCI of the circumflex remotely and then had PCI of the LAD in 2011.?He developed?a new critical stenosis in the ostial LAD and moderate RCA stenosis. Subsequently he had 3 vessel CABG with DOUGLAS to LAD, SVG to RCA and radial to OM?in 2014. He had a repeat cardiac catheterization?in 2019?due to new abnormal EKG and new onset of shortness of breath. All grafts were patent. ) Stable at 02/2025 office visit. Some LE edema since spirinolactone d/c'd by renal. Echo 02/2025 [place] Renal: Follow RTANE for CKD St 4. Last office visit 04/2025 notes increase in baseline serum creat from 2's to 3-4's. 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) (Acute) Hypertension, essential (Acute) Risk for falls (Acute) Uncontrolled hypertension (Acute) Medicare annual wellness visit, subsequent (Acute) Insulin dependent type 1 diabetes mellitus (Acute) Diarrhea (Acute) Cricopharyngeal achalasia (Acute) Diabetic retinopathy (Acute) Cellulitis of foot (Acute) Foot ulcer (Acute) Cataract, left (Acute) Dysphagia, pharyngoesophageal phase (Acute) Medicare annual wellness visit, initial (Acute) correction (current) use of insulin (Acute) Insulin dependent diabetes mellitus with complications (Acute) Diabetic neuropathy (Acute) Coronary artery disease (Acute) Lipid disorder (Acute) Hearing difficulty (Acute) Encounter for general adult medical examination with abnormal findings (Acute) Establishing care with new doctor, encounter for (Acute) Normocytic anemia (Acute) Acute on chronic anemia (Acute) Osteomyelitis of left foot (Acute) Acute diastolic (congestive) heart failure (Acute) Diabetic ulcer of left foot (Acute) Major depression, recurrent (Acute) Hospital discharge follow-up (Acute) Benign prostatic hyperplasia (Acute) Acid reflux (Acute) 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 condition (Acute) Swelling of lower extremity (Acute) Water retention (Acute) Cellulitis of leg, left (Acute) Pre-op evaluation (Acute) Cataract (Acute) Low blood pressure (Acute) History of alcohol abuse (Acute) Cardiomyopathy (Acute) Stage III chronic kidney disease (Acute) DNR (do not resuscitate) discussion (Acute) Diabetic ulcer of right foot (Acute) Chronic alcoholic pancreatitis (Acute) Alcoholic cirrhosis of liver with ascites (Acute) Weight loss (Acute) Uncontrolled diabetes mellitus (Acute) Abnormal MRI of abdomen (Acute) Chronic pain syndrome (Acute) Difficulty sleeping (Acute) Painful diabetic neuropathy (Acute) Diet-controlled diabetes mellitus (Acute) Unstable gait (Acute) Past Medical History Medical History Ascites Chronic kidney disease GERD (gastroesophageal reflux disease) Macrocytic anemia Chronic diabetic ulcer of right foot determined by examination Anemia Osteomyelitis Hearing difficulty Neuropathy Cataracts, bilateral Bunion Heart attack CAD (coronary artery disease) High cholesterol Diabetes Hypertension Family History Family History Sister HTN (hypertension) Sister HTN (hypertension) Father Heart disease Heart attack Mother Kidney failure Family history of problems with anesthesia: No Surgical History Surgical History History of esophagogastroduodenoscopy (EGD) H/O colonoscopy Hx of heart artery stent Hx of cystoscopy Hx of endoscopy History of bunionectomy of right great toe H/O rotator cuff surgery H/O heart bypass surgery History of Problems with Anesthesia: No Social History Social History (Updated 05/23/25 @ 12:33 by Carolyn Layne RN) Household Members: Significant Other Housing: Condominium Are you a primary respiratory care instructor to a significant other at home: No Do you presently have visiting nurse or other home services: No Alcohol intake: current Alcohol intake frequency: former alcohol drinker Alcohol type: beer Patient Tobacco Use Status: Former Tobacco user Tobacco use type: Cigarette Years Smoked: 15 e-Cigarette/Vaping Use: Never Used Use of substances other than those prescribed or required for medical reasons: Yes Substance Use Type: Marijuana Substance Use Type Other:: gummies Substance Use Frequency: Occasionally Have you been hit, kicked, punched, or otherwise hurt by someone within the past year? If so, by whom?: No Are you DNR?: No Advance Directives: No Advance Directives Information Provided: Yes Advance Directives on File: No service: No Current occupational status: unemployed Cognitive needs: No Hearing needs: Yes Vision needs: No Meds Allergies Allergy/AdvReac Type Severity Reaction Status Date / Time codeine Allergy Severe SOB, Verified 05/27/25 10:24 diaphoretic Home Medications ?Medication ?Instructions ?Recorded ?Confirmed ?Last Taken ?Type aspirin 81 mg tablet,delayed 81 mg PO BEDTIME 12/12/20 05/23/25 03/23/23 History release blood-glucose meter #1 ea 12/12/20 05/08/25 Unknown History lancets 28 gauge #100 ea 12/12/20 05/08/25 Unknown History multivitamin 1 tab PO DAILY 12/12/20 05/23/25 12/12/20 History insulin aspart U-100 100 unit/mL 6 - 9 sliding scale dose subcut BID 09/16/22 05/23/25 02/23/23 History (3 mL) subcutaneous pen (Novolog FlexPen U-100 Insulin aspart) insulin glargine 100 unit/mL (3 14 unit subcut QAM 03/14/25 05/23/25 Unknown History mL) subcutaneous pen (Lantus Solostar U-100 Insulin) calcitriol 0.25 mcg capsule 0.25 mcg PO DAILY 05/07/25 05/23/25 Unknown History nifedipine 30 mg tablet,extended 30 mg PO DAILY 05/07/25 05/23/25 Unknown History release 24 hr thiamine HCl (vitamin B1) 100 mg 100 mg PO DAILY 05/07/25 05/23/25 Unknown History tablet Exam Pertinent Lab Results Pertinent Lab Results: 01/24/2025 WBC 5.6 Hgb 9.2 HCT 28.8 PLT 79 ? Glucose 62 BUN 56 Creatinine 4.17 eGFR 15 Sodium 142 Potassium 4.8 Chloride 111 Calcium 8.9 Bicarb 12 Narrative Narrative: ECHO 02/2025 Left ventricle cavity size is normal. There is mild posterior wall hypertrophy. Systolic function is normal with an ejection fraction of 60-65%. There are no regional LV wall motion abnormalities Left atrial dilatation Dilated sinus of valsalva 4.6 cm and ascending aorta 4.4 cm Compared to the prior study from 2022, there is no significant change EKG 02/2025 EKG: Normal sinus rhythm Normal ECG When compared with ECG of 30-JUL-2024 08:59,Nonspecific T wave abnormality no longer evident in Anterolateral leads Renal Dopplars 01/2025 FINDINGS: The right kidney measures 10.3 cm in length. Renal cortical echotexture is increased. There is no hydronephrosis. There are no stones. There are no cysts. The left kidney measures 9.9 cm in length. Renal cortical echotexture is increased. There is no hydronephrosis. There are no stones. There is a simple cyst within the upper pole measuring 1.6 x 1.4 x 1.5 cm. IMPRESSION: Increased echogenicity of the renal cortices most suggestive of intrinsic renal disease. No hydronephrosis. Assessment and Plan Assessment Anesthesia Assessment: Chart Reviewed Final Anesthetic Review Family History of Problems with Anesthesia: No History of Problems with Anesthesia: No Documented by User: Krystal Washington DO 05/27/25 10:56 HPI - Anesthesia Eval Consult details Narrative: 69yo M for Colonoscopy CV: [facility] for CAD c/b PR s/p stents and CABG x 3 (?PCI of the circumflex remotely and then had PCI of the LAD in 2011.?He developed?a new critical stenosis in the ostial LAD and moderate RCA stenosis. Subsequently he had 3 vessel CABG with DOUGLAS to LAD, SVG to RCA and radial to OM?in 2014. He had a repeat cardiac catheterization?in 2019?due to new abnormal EKG and new onset of shortness of breath. All grafts were patent. ) Stable at 02/2025 office visit. Some LE edema since spirinolactone d/c'd by renal. Echo 02/2025 [place] Renal: Follow RTANE for CKD St 4. Last office visit 04/2025 notes increase in baseline serum creat from 2's to 3-4's. Dopplers done, referred to transplant team Cytopenia s/p bone marrow biopsy 01/2025 - no malignancy, only hypocellularity PMFSH Past Medical History Medical History Ascites Chronic kidney disease GERD (gastroesophageal reflux disease) Macrocytic anemia Chronic diabetic ulcer of right foot determined by examination Anemia Osteomyelitis Hearing difficulty Neuropathy Cataracts, bilateral Bunion Heart attack CAD (coronary artery disease) High cholesterol Diabetes Hypertension Family History Family History Sister HTN (hypertension) Sister HTN (hypertension) Father Heart disease Heart attack Mother Kidney failure Family history of problems with anesthesia: No Surgical History Surgical History History of esophagogastroduodenoscopy (EGD) H/O colonoscopy Hx of heart artery stent Hx of cystoscopy Hx of endoscopy History of bunionectomy of right great toe H/O rotator cuff surgery H/O heart bypass surgery History of Problems with Anesthesia: No Social History Social History (Updated 05/23/25 @ 12:33 by Carolyn Layne RN) Household Members: Significant [facility] Are you a primary respiratory care instructor to a significant other at home: No Do you presently have visiting nurse or other home services: No Alcohol intake: current Alcohol intake frequency: former alcohol drinker Alcohol type: beer Patient Tobacco Use Status: Former Tobacco user Tobacco use type: Cigarette Years Smoked: 15 e-Cigarette/Vaping Use: Never Used Use of substances other than those prescribed or required for medical reasons: Yes Substance Use Type: Marijuana Substance Use Type Other:: gummies Substance Use Frequency: Occasionally Have you been hit, kicked, punched, or otherwise hurt by someone within the past year? If so, by whom?: No Are you DNR?: No Advance Directives: No Advance Directives Information Provided: Yes Advance Directives on File: No service: No Current occupational status: unemployed Cognitive needs: No Hearing needs: Yes Vision needs: No Meds Allergies Allergy/AdvReac Type Severity Reaction Status Date / Time codeine Allergy Severe SOB, Verified 05/27/25 10:24 diaphoretic Home Medications ?Medication ?Instructions ?Recorded ?Confirmed ?Last Taken ?Type aspirin 81 mg tablet,delayed 81 mg PO BEDTIME 12/12/20 05/23/25 03/23/23 History release blood-glucose meter #1 ea 12/12/20 05/08/25 Unknown History lancets 28 gauge #100 ea 12/12/20 05/08/25 Unknown History multivitamin 1 tab PO DAILY 12/12/20 05/23/25 12/12/20 History insulin aspart U-100 100 unit/mL 6 - 9 sliding scale dose subcut BID 09/16/22 05/23/25 02/23/23 History (3 mL) subcutaneous pen (Novolog FlexPen U-100 Insulin aspart) insulin glargine 100 unit/mL (3 14 unit subcut QAM 03/14/25 05/23/25 Unknown History mL) subcutaneous pen (Lantus Solostar U-100 Insulin) calcitriol 0.25 mcg capsule 0.25 mcg PO DAILY 05/07/25 05/23/25 Unknown History nifedipine 30 mg tablet,extended 30 mg PO DAILY 05/07/25 05/23/25 Unknown History release 24 hr thiamine HCl (vitamin B1) 100 mg 100 mg PO DAILY 05/07/25 05/23/25 Unknown History tablet Exam Exam Date and Time: 05/27/25 1055 Height,Weight and Vital Signs: Height 5 ft 11 in Weight 73.482 kg Vital Signs Temperature 97.9 F 05/27/25 10:31 Pulse Rate 70 05/27/25 10:31 Respiratory Rate 18 05/27/25 10:31 Blood Pressure 161/62 H 05/27/25 10:31 Pulse Oximetry 100 05/27/25 10:31 Oxygen Delivery Method Room Air 05/27/25 10:31 Temperature 97.9 F 05/27/25 10:31 Pulse Rate 70 05/27/25 10:31 Respiratory Rate 18 05/27/25 10:31 Blood Pressure 161/62 H 05/27/25 10:31 Pulse Oximetry 100 05/27/25 10:31 Oxygen Delivery Method Room Air 05/27/25 10:31 Airway Mallampati Class: II TM Dist: >3cm Neck ROM: Full Loose/Missing/Broken Teeth: Yes (edentulous top jaw; patient denies any loose or broken teeth on bottom jaw) Heart: S1S2 Lungs: CTAB Assessment and Plan Assessment Anesthesia Assessment: Anesthesia Plan Discussed and Chart Reviewed Final Anesthetic Review Family History of Problems with Anesthesia: No History of Problems with Anesthesia: No NPO: Yes ASA Class: III Final Preanesthetic Review: No Changes in Pt Med Stat, Meds/Allgs Chart Reviewed, Consent Obtained/Reviewed and Anes Risks/Benef Reviewed Patient Risk: Intermediate Procedure Risk: Low Anesthetic Plan Anesthetic Plan: MAC: and Agree w/ Assess. and Plan Disposition: Standard PACU
[2025-05-27 10:58] LABS: Anion Gap 15 (12-20); Blood Urea Nitrogen 64 mg/dL (9-16); Calcium 8.5 mg/dL (8.4-10.2); Carbon Dioxide 19 mmol/L (22-29); Chloride 110 mmol/L (96-108); Creatinine Clr Calc Pharmacy 13.8; Estimated Glomerular Filt Rate 11; Potassium 3.8 mmol/L (3.3-5.1); Sodium 140 mmol/L (135-145)
--- NOTE | 2025-05-27 11:24 | PC.NURSE ---
Dr. Washington and Dr. Estevez aware of creatinine 5.22 result today. Per doctors, will rehydrate with IV fluids today. Dr. Estevez educated patient and discussed next nephrology appointment and f/u labs.
--- NOTE | 2025-05-27 12:20 | HO.OPN-COLON ---
Colonoscopy Operative Note Operative Note Date of Service: 05/27/25 Narrative: COLONOSCOPY TILL CECUM WITH SNARE POLYPECTOMY AND HEMOCLIP PLACEMENT Pre-op diagnosis: Surveillance of colon polyps. Post-op diagnosis:? Colon polyps, Diverticulosis, hemorrhoids Endoscopist:? Elisha Estevez MD Anesthesia:?MAC Consent: Indications for the procedure and potential complications of bleeding, perforation, reaction to medications and missed diagnosis were discussed with the patient and informed consent was obtained. Instrument: Olympus CF H 190 L variable stiffness adult colonoscope Monitoring: Vital signs and clinical assessment, intermittent blood pressure monitoring, continuous EKG monitoring, Pulse oximetry and Carbon Dioxide monitoring were done throughout the procedure. Please see anesthesia flowsheet. Colon withdrawl time was 28 minutes. Procedure: The patient was placed in the left lateral decubitis position and pre-procedure medications were administered. After a digital rectal examination of the ano-rectum, the video colonoscope was inserted into the rectum and advanced through the colon to the cecum. The colonoscope was slowly withdrawn in a retrograde panoramic fashion and the colon mucosa was carefully examined including a retroflexed view of the rectum. Findings and interventions are described below. Procedure Difficulty: Colon was long and tortuous there was spasm and recurrent loop formation Findings: Terminal Ileum: Not evaluated Cecum: A 10 mm sessile polyp on the distal surface of ICV - removed with a stiff hot snare. Polypectomy site was closed with 1 hemoclip. Ascending Colon: Past polypectomy site was visualized and no recurrent/residual polyp was seen Moderate diverticulosis throughout the entire colon Transverse Colon: A 10-12 mm sessile polyp - removed with a stiff hot snare. Moderate diverticulosis throughout the entire colon. Descending Colon: Moderate diverticulosis Sigmoid Colon: Moderate diverticulosis Rectum: Normal Ano-rectum: Small internal hemorrhoids Colon preparation: Good after copious irrigation. [place] Bowel Preparation Scale Right colon; 2 Transverse colon: 2 Left colon; 2 (0 = Unprepared colon segment with mucosa not seen due to solid stool that cannot be cleared. 1 = Portion of mucosa of the colon segment seen, but other areas of the colon segment not well seen due to staining, residual stool and/or opaque liquid. 2 = Minor amount of residual staining, small fragments of stool and/or opaque liquid, but mucosa of colon segment seen well. 3 = Entire mucosa of colon segment seen well with no residual staining, small fragments of stool or opaque liquid) Impression and Post Procedure Diagnosis: Colonoscopy Findings: Two medium sized polyps were removed Random biopsies were obtained from right and left colon to check for microscopic colitis. Moderate diverticulosis seen throughout the entire colon. Small hemorrhoids on retroflexed exam. Plan: I will send a letter with biopsy results. Patient is scheduled for a follow-up appointment in GI on 07/11/2025 Repeat Colonoscopy in 3-5 years if polyps are adenomatous and due to history of adenomatous colon polyps. Above findings were reviewed with the patient and relevant handouts were given and the discharge area.
[2025-05-27 12:24] VITALS: BP 118/66; PULSE 55; RESP 14; TEMP 36.1; O2SAT 100
[2025-05-27 12:39] VITALS: BP 115/61; PULSE 56; RESP 16; TEMP 36.1; O2SAT 100
== END 2025-05-27 13:17 | disposition home or self-care (01) ==
PROVIDERS: Nurse Practitioner; PCP Internal Medicine; Visit Provider Internal Medicine Gastroenterology
PROC: 0DJD8ZZ Inspection of Lower Intestinal Tract, Via Natural or Artificial Opening Endoscopic (ICD-10-PCS; CPT 45378; principal; 2025-05-27 12:10)
DX: Z12.11 Encounter for screening for malignant neoplasm of colon (principal); K86.0 Alcohol-induced chronic pancreatitis; K70.31 Alcoholic cirrhosis of liver with ascites; R93.5 Abnormal findings on diagnostic imaging of other abdominal regions, including retroperitoneum; R13.14 Dysphagia, pharyngoesophageal phase; K22.0 Achalasia of cardia; R19.7 Diarrhea, unspecified; K57.30 Diverticulosis of large intestine without perforation or abscess without bleeding; K64.8 Other hemorrhoids; D12.2 Benign neoplasm of ascending colon; K63.5 Polyp of colon
CPT/HCPCS: 45380; 45385; 36415; 80048; 82947; 85027; 88305; J2704

== ENCOUNTER → 2025-05-27 10:16 | Outpatient (BNV) | payer MEDICARE, OTHER, SELFPAY | PROVIDERS: PCP Internal Medicine; Visit Provider Internal Medicine Gastroenterology | DX: Z12.11 Encounter for screening for malignant neoplasm of colon (principal); K63.5 Polyp of colon; K57.90 Diverticulosis of intestine, part unspecified, without perforation or abscess without bleeding; K64.8 Other hemorrhoids | CPT/HCPCS: 45385 ==

== ENCOUNTER 2025-07-11 07:05 | Outpatient (AMB) | payer MEDICARE, OTHER, SELFPAY ==
--- OUTSIDE RECORDS SUMMARY | 2024-07-13 03:45 | XMS_ITS ---
Author Organization [facility] Address [address] [place] [address] Care Team Providers Care Urologist Md Name Role Phone Regulo CONKLIN, Rufino Primary Care Provider Ni Almanza [phone] REASON FOR VISIT Transfer to Different Provider Encounters Encounter Location Date Provider Diagnosis [address] [address] 07/13/2024 Ni Leone Plan Of Treatment Next Appt Details Provider Name:Ni duncan, 07/15/2025 03:00:00 PM, [address] [place], [address], Progress Notes * Quentin LARA SDOB:[birth year] (69 yo M)Acc No.[id number]:07/13/2024 Progress Note Patient: Molly DIORQuentin Magno Provider: Hari Leone DPM :1955 A ge:68 Y S ex:Male Date:07/13/2024 Address:[address] [id number] Pcp:Rufino Rajput MD Subjective: * Chief Complaints: * 1 . Transfer to Different Provider. * Medical History: Objective: * Vitals: Assessment: Plan: * Treatment: * Images: * The named appointment provid er may or may not be the originator of this progress note, and it is not deemed complete until electronically signed by the appointment provider. Sign off status: Pending * Provider: Hari Leone, JULIA Date: 1 09/13/2023 Generated for Vika nicholson/Carrie/Ashley on: 09/11/2024 07:09 AM EST
--- OUTSIDE RECORDS SUMMARY | 2025-06-06 04:15 | XMS_ITS ---
Author Organization [facility] Address [address] [place] [address] Care Team Providers Care Physician Office Clin Asst Name Role Phone Regulo CONKLIN, Rufino Primary Care Provider Ni Almanza [phone] Encounters Encounter Location Date Provider Diagnosis [address] [address] 06/06/2025 Ni Leone Plan Of Treatment Next Appt Details Provider Name:Ni duncan, 07/15/2025 03:00:00 PM, [address] [place] [address], [phone], Progress Notes * Quentin LARA SDOB:[birth year] (69 yo M)Acc No.[id number]:06/06/2025 Progress Note Patient: Quentin SELLERS Provider: Hari Leone DPM :1955 A ge:69 Y S ex:Male Date:06/06/2025 Address:[address] [place]-[id number] Pcp:Rufino Rajput MD Subjective: * Chief Complaints: * * Medical History: Objective: * Vitals: Assessment: Plan: * Treatment: * Images: * The named appointment provid er may or may not be the originator of this progress note, and it is not deemed complete until electronically signed by the appointment provider. Sign off status: Pending * Provider: Hari Leone DPM Date: 08/06/2024 Generated for Vika nicholson/Carrie/Ashley on: 09/11/2024 07:09 AM EST
--- OUTSIDE RECORDS SUMMARY | 2025-07-10 05:30 | XMS_ITS ---
[facility] Address [address] [place] [address] Care Team Providers Care Union Organizer Name Role Phone Regulo CONKLIN, [facility] Primary Care Provider Ni Almanza Unavailable [phone] Allergies Allergen (clinical drug ingredient) Drug/Non Drug Allergy documented on EMR Reaction Allergy Type Onset Date Status codeine Codeine Sulfate rapid pulse, shortness of breath, hypertation, sweats Drug Allergy Active REASON FOR VISIT Skin problem(s) Medications Medication SIG (Take, Route, Frequency, Duration) Notes Start Date End Date Status Lisinopril 20 MG Oral; Duration: 90 Not-Taking Nitrostat 0.4 MG Sublingual No t-Taking metFORMIN HCl 1000 MG Oral; Duration: 30 Not-Taking Physical Therapy . . . 2-3x/week; Duration: 3-4 weeks 03/01/2014 Not-Taking Physical Therapy . . . 2-3x/week; Duration: 3-4 weeks Not-Taking Gabapentin 600 MG Oral; Duration: 90 Not-Taking glyBURIDE 5 MG Oral; Duration: 30 Not-Taking Ketostix In Vitro; Duration: 50 Not-Taking glipiZIDE Not-Taking Lyrica 50 MG 1 capsule Orally Three times a day Not-Taking Extra Depth Diabetic Shoes with 3 Pair Custom heat-molded multi-density innersoles for 1 year Dx: 02/25/2021 Not-Taking Metoprolol Succinate ER 50 MG 1 tablet Orally Once a day Not-Taking Folic Acid 1 MG Oral; Duration: 90 Not-Taking Antibiotic Not-Takin g Ferrous Sulfate 325 (65 Fe) MG 1 tablet Orally Once a day Not-Taking Omeprazole 40 MG 1 capsule 30 minutes before morning meal Orally Once a day; Duration: 30 day(s) Not-Taking FreeStyle Lite Test In Vitro; Duration: 90 Not-Taking Tamsulosin HCl 0.4 MG 1 capsule Orally Once a day; Duration: 30 day(s) Not-Taking Insulin Cartridge 3ML Not-Taking FreeStyle Lancets ; Duration: 90 Not-Taking Basaglar KwikPen Not -Taking Enulose Not-Taking Lactulose Not-Taking Zolpidem Tartrate No t-Taking Furosemide 40 MG 1 tablet Orally Once a day; Duration: 30 day(s) Not-Taking Extra Depth Orthopedic Shoes (1 Pair) with Customized Heat Molded Multidensity Innersoles (3 Pair) as directed Dx: NIDDM/Polyneuropathy (E11.42), Hammertoe Foot Deformity (M20.41,M20.42), Preulcerative Skin Lesion(s) (L85.1 07/12/2024 Active Extra Depth Diabetic Shoes with 3 Pair Custom heat-molded multi-density innersoles for 1 year Dx: Active Zenpep Not-Taking Vitamin C Not-Taking Vitamin B-1 100 MG 1 tablet Orally Once a day; Duration: 30 day(s) Not-Taking Multivitamins Orally Active Spironolactone 25 MG 1 tablet Orally; Duration: 30 day(s) Active Creon 6 a day Active Atorvastatin Calcium 20 MG 1 tablet Orally Once a day Active Aspirin 81 MG 1 tablet Orally Once a day Active Sodium Bicarbonate 650 MG as directed Orally Active Pregabalin 100 MG 1 capsule Orally Three times a day Active Calcitriol 0.25 MCG 1 capsule Orally Three times a Week Active Levemir Active NovoLOG sliding scale Active Amoxicillin Active Doxycycline Monohydrate 100 MG 1 capsule Orally Twice a day; Duration: 10 days 07/10/2025 Active hydrALAZINE HCl 25 MG 1 tablet with food Orally Twice a day Active Doxycycline Hyclate Active Social History Tobacco [...] ast year? No Points 0 Interpretation Negative Vital Signs Height 4ie54am in 07/10/2025 Weight 165 lbs 07/10/2025 BMI 23.01 kg/m2 07/10/2025 Blood pressure systolic 125 mm Hg 07/10/20 25 Blood pressure diastolic 65 mm Hg 025 Encounters Encounter Location Date Provider Diagnosis [facility] [address] [place] [address] 07/10/2025 Ni Leone Cellulitis of foot, left L03.116 Assessments Encounter Date Diagnosis (ICD Code) Assessment Notes Treatment Notes Treatment Clinical Notes Section Notes 07/10/2025 Cellulitis of foot, left (ICD-10 - L03.116) Plan Of Treatment Medication Medication Name Sig Start Date Stop Date Notes Doxycycline Monohydrate 100 MG 1 capsule Orally Twice a day; Duration: 10 days 07/10/2025 Next Appt Details Provider Name:Ni duncan, 07/15/2025 03:00:00 PM, [address] [place] [address], [phone], Progress Notes * AGGIE Quentin SDOB:[birth year] (69 yo M)Acc No.[id number]:07/10/2025 Progress Notes Patient: Quentin SELLERS Provider: Hari Leone DPM :1955 A ge:69 Y S ex:Male Date:07/10/2025 Address:[address] [place] [id number] Pcp:Rufino Rajput MD Subjective: * Chief Complaints: * 1 . Skin problem(s). * HPI: A t Risk footcare: Pt States Last PCP Visit: D ate: 0 11/14/2024 S kin problems: Nature: r edness , swelling , tender. Location: _ __ L eft. Duration: _ ___. Onset/Cause: _ ___. Course: w orse. Treatments: n one. * ROS: G eneral/Constitutional: Nausea d enies. V omiting d enies. H mike Thirst d enies. L oss appetite a dmits. C hills d enies. F atigue a dmits.?Fever d enies. N ight Sweats d enies. U nexplained weight loss d enies. U nexplained weight gain a dmits. H EENTM: Dentures d enies. D izziness a dmits. G lasses/contacts d enies. R etinopathy a dmits. B lurred/double vision a dmits. T MJ?denies. D ischarge/drainage d enies. I mplants d enies. S ore throat d enies. D ental implants d enies. H filemon of hearing d enies. D ifficulty chewing/swallowing/speaking d enies. N ose bleeds d enies. S ore mouth d enies. ? R espiratory: On Oxygen d enies. P neumonia/pleurisy a dmits.?Bronchitis d enies. E mphysema d enies. C oughing d enies. C ough blood?denies. S hortness of breath d enies. W heezing d enies. C ardiovascular: Pacemaker d enies. M FIELD CLINICAL ENGINEER d enies. W PW d enies. C HF d enies. H eart attack a dmits. S eptal defect d enies. R apid beat d enies. C hest pain d enies. A trial Fib. d enies. M urmur/Palpitations d enies. G astrointestinal: Hemorrhoids d enies. S tomach/Abdominal pain d enies. D ark blood stool d enies. I rritable bowel d enies. C onstipation d enies. D iarrhea a dmits. H ematology: Swelling a dmits. C lots d enies. V aricose Veins d enies. B ruising a dmits. B leeding problem d enies. G enitourinary: Blood urine d enies. F requent/Painfu/urination/bladder control d enies. K idney stones d enies. I nfection (UTI) d enies. N ephropathy d enies. s ex trans dis (STD) d enies. P rostate d enies. M usculoskeletal: Hammertoes d enies. B unions a dmits. B ack Pain d enies. M uscle Cramps/ Resting d enies. M uscle cramps / walking d enies.?Generalized aches and pains a dmits. W eakness a dmits. I nteg.: Arshad d enies. S cars d enies. C orns/calluses?admits. I ngrown nails d enies. P ainful nails d enies. O pen Sores a dmits. R ashes d enies. N eurologic: Difficulty sleeping d enies. B rain disorder d enies. N umbness d enies. B alance trouble a dmits. C onfusion d enies. F ainting/blackouts d enies. T ingling d enies. T remors d enies. * Medical History: A nemia, Coronary artery disease, Hypertension, Neuropathy, Hypercholesterolemia, Myocardial infarction, Pancreatitis, Pneumonia, type II diabetes, Reflux, Arthritis, Broken bones, Heart disease, Poor circulation, Warts, Measles, Chicken pox, Vascular grafts, Joint implants/screws, Hearing loss, Anxiety, Back,Hip,and Knee pain, Cataracts, Osteoporosis, High blood pressure, Ulcer, Transfusions. * Surgical History: r ight foot surgery 2010, angioplasty of carotid artery: intracranial angioplasty , left rotator cuff tear repair 2012, Heart stent 2000, 2011, open heart /triple bypass 09/2014, Lazer eye sx 05/2021, Cataract Surgery 06/16, Eye surgery -cataract slipped behind eyeball 07/16, eye surgery, bitractomy 11/10/23, left foot surgery, hardware removed from previous bunion surgery 02/03/24. * Hospitalization/Major Diagno stic Procedure: [facility] - pneumonia 06/2013-1-14, [facility] ER- Coundn't get up/stand -KidneyLiver failure-swelling/Infection ICU few weeks -rehab 6wks 05/29/2021, [facility]- stent, kidney sones, 3 day stay 02/19/22. * Family History: M other: , kidney failure, kidney/liver disease, diagnosed with Diabetic - NIDDM. F ather: , coronary artery disease, foot problems, diagnosed with Unspecified essential hypertension, Unspecified heart disease. S iblings: foot problems, diagnosed with Unspecified essential hypertension. no children. * Social History: T obacco Use: T obacco use other than smoking A re you an other tobacco user? N o Tobacco Control (Standard) T obacco use: N onsmoker A dditional Findings: Tobacco non-user C urrent nonsmoker D rugs/Alcohol: D rugs H ave you used drugs other than those for medical reasons in the past 12 months? N o M iscellaneous: C affeine: yes, 1 cups per day. Children: none. Exercise: yes, walking. Marital status: single. Occupation: Retired-[employer] /[employer]. D rug/Alcohol: A SAMIR-C (Standard) D id you have a drink containing alcohol in the past year? N o P oints 0 I nterpretation N egative * Medications: T aking hydrALAZINE HCl 25 MG Tablet 1 tablet with food Orally Twice a day , Taking Doxycycline Hyclate , Taking Amoxicillin , Taking Sodium Bicarbonate 650 MG Tablet as directed Orally , Taking Calcitriol 0.25 MCG Capsule 1 capsule Orally Three times a Week , Taking Pregabalin 100 MG Capsule 1 capsule Orally Three times a day , Taking NovoLOG , Notes to Pharmacist: sliding scale, Taking Levemir , Taking Creon , Notes to Pharmacist: 6 a day, Taking Spironolactone 25 MG Tablet 1 tablet Orally , Taking Aspirin 81 MG Tablet 1 tablet Orally Once a day , Taking Atorvastatin Calcium 20 MG Tablet 1 tablet Orally Once a day , Taking Multivitamins Capsule Orally , Taking Extra Depth Diabetic Shoes with 3 Pair Custom heat-molded multi-density innersoles for 1 year Dx: , Taking Extra Depth Orthopedic Shoes (1 Pair) with Customized Heat Molded Multidensity Innersoles (3 Pair) as directed Dx: NIDDM/Polyneuropathy (E11.42), Hammertoe Foot Deformity (M20.41,M20.42), Preulcerative Skin Lesion(s) (L85.1 , Not-Taking/PRN Vitamin C , Not-Taking/PRN Zenpep , Not-Taking/PRN Vitamin B-1 100 MG Tablet 1 tablet Orally Once a day , Not-Taking/PRN Enulose , Not-Taking/PRN Zolpidem Tartrate , Not-Taking/PRN Lactulose , Not-Taking/PRN Furosemide 40 MG Tablet 1 tablet Orally Once a day , Not-Taking/PRN Basaglar KwikPen , Not-Taking/PRN Omeprazole 40 MG Capsule Delayed Release 1 capsule 30 minutes before morning meal Orally Once a day , Not-Taking/PRN Tamsulosin HCl 0.4 MG Capsule 1 capsule Orally Once a day , Not-Taking/PRN FreeStyle Lite Test Strip In Vitro , Not-Taking/PRN FreeStyle Lancets Miscellaneous , Not-Taking/PRN Insulin Cartridge 3ML , Not-Taking/PRN Metoprolol Succinate ER 50 MG Tablet Extended Release 24 Hour 1 tablet Orally Once a day , Not-Taking/PRN Extra Depth Diabetic Shoes with 3 Pair Custom heat-molded multi-density innersoles for 1 year Dx: , Not-Taking/PRN Antibiotic , Not-Taking/PRN Folic Acid 1 MG Tablet Oral , Not-Taking/PRN Ferrous Sulfate 325 (65 Fe) MG Tablet 1 tablet Orally Once a day , Not-Taking/PRN glyBURIDE 5 MG Tablet Oral , Not-Taking/PRN Gabapentin 600 MG Tablet Oral , Not-Taking/PRN glipiZIDE , Not-Taking/PRN Ketostix Strip In Vitro , Not-Taking/PRN Lyrica 50 MG Capsule 1 capsule Orally Three times a day , Not-Taking/PRN Lisinopril 20 MG Tablet Oral , Not-Taking/PRN metFORMIN HCl 1000 MG Tablet Oral , Not-Taking/PRN Nitrostat 0.4 MG Tablet Sublingual Sublingual , Not-Taking/PRN Physical Therapy . . . . 2-3x/week , Not-Taking/PRN Physical Therapy . . . . 2-3x/week , Medication List reviewed and reconciled with the patient * Allergies: C odeine Sulfate: rapid pulse, shortness of breath, hypertation, sweats. Objective: * Vitals: H t:1fw45ql, Wt:165, BMI:23.01, Shoe size:10.5, BP:125/65mm Hg, BS:120, Ht-cm: 180.34 cm, Wt-k.84 kg. * P ast Orders: L ab:HEMOGLOBIN A1C (GLYCOHEMOGLOBIN) (Order Date - 11/13/2024) (Collection Date & Time - 11/14/2024 09:34 AM) Value Reference Range HEMOGLOBIN A1C % (HH) 6.8 * Examination: O phthalmology Referral: DIABETES EYE EXAM P rocedure Performed: N o F indings of Diabetic Eye Exam: n o retinopathy D ermatologic: SKIN FINDINGS: Skin shows sign(s) of, localized cellulitis without lymphangitis extending proximally to the level of, ___ L eft. G eneral Examination: GENERAL APPEARANCE: D enies fever, chills, malaise, lymphadenopathy. Assessment: * Assessment: 1. C ellulitis of foot, left - L03.116 (Primary) S pecify :Acute problem, Complicated w/ Multiple Tx Options(4), Dx New problem, Prognosis Uncertain (4), Rx Management (4) Plan: * Treatment: * Preventive Medicine: Counseling: D iscussion: _ ____. C ellulitis/Lymphangitis T he patient was counseled on the diagnosis, etiology, treatment options, and importance for adherence to recommendations regarding the treatment for Cellulitis. Abx were Rxed to address the cellulitis. The advantages and disadvantages of an antibiotic medication, along with its side effects, were discussed with the patient to their comprehended satisfaction. Patient questions re: use, dosage, and possible pharmacutical interactions were reviewed and the answers clearly understood. If the condition should worsen while taking the antibiotics as directed, it was recommeded that the patient call the office immediately or seek emergency medical care. The patient verbally confirmed a full understanding of the above information. Screening/Special Tests: F all Risk Screening: N o falls in the past year F ALLS: Screening for Future Fall Risk Have you had any falls with injury in the past year? N o * Images: * The named appointment provid er may or may not be the originator of this progress note, and it is not deemed complete until electronically signed by the appointment provider. Sign off status: Pending * Provider: Hari Leone DPM Date: 09/10/2024 Generated for Vika nicholson/Carrie/Ashley on: 09/11/2024 07:08 AM EST History and Physical Notes * HPI (History of Present Illness) Category Sub-Category Detail Notes Category Not es Skin problems Nature: redness , swelling , tender Location: ___ Left Duration: ____ Onset/Cause: ____ Course: worse Treatments: none At Risk footcare Pt States Last PCP Visit: Date:: 11/15/19 25 Examination Category Sub-Category Detail Notes Category Not es Dermatologic SKIN FINDINGS: Skin shows sign( s) of, localized cellulitis without lymphangitis extending proximally to the level of, ___ Left General Examination GENERAL APPEARANCE: Denies f ever, chills, malaise, lymphadenopathy Ophthalmology Referral DIABETES EYE EXAM Procedure Performed:: No Findings of Diabetic Eye Exam:: no retin opathy
--- OUTSIDE RECORDS SUMMARY | 2025-07-11 07:08 | XMS_ITS | Patient Health Record ---
Author Organization [facility] Address [address] [place] [address] Care Team Providers Care Materials Management Manager Name Role Phone BETTY CONKLIN, ISSAC Primary Care Provider Unavail able JESSICA Rhoades [phone] Allergies Allergen (clinical drug ingredient) Drug/Non Drug Allergy documented on EMR Reaction Allergy Type Onset Date Status codeine Codeine palpitations/tennille tation Drug Allergy Active Reason For Referral No Information Medications Medication SIG (Take, Route, Frequency, Duration) Notes Start Date End Date Status Creon [id number] UNIT Capsule Delayed Release Particles 1 cap(s) orally 3 times a day; Duration: 90 DAY(S) 12/21/2018 Active metFORMIN HCl 500 MG Tablet 1 tab(s) orally TID Active Metoprolol Tartrate 50 MG 1 TAB(S) PO ONCE A DAY NAME ONLY Conversion from Multum Review and pick correct strength-formulat ion from Assay Depotan options. If intended option is not shown, discontinue and re-order from Quick Search. Active Aspirin EC 81 MG Tablet Delayed Release 1 tab(s) orally every day Active Multivitamin CAPSULE 1 CAP(S) ORALLY EVERY DAY NAME ONLY Conversion from Multum Review and pick correct strength-formulat ion from GridGain Systemsspan options. If intended option is not shown, discontinue and re-order from Quick Search. Active Procrit 2000 UNITS/ML PRESERVATIVE-FREE SOLUTION DIRECTED INTRAVENOUSLY ONCE MONTHLY pt unsure of dose NAME ONLY Conversion from Multum Review and pick correct strength-formulat ion from GridGain Systemsspan options. If intended option is not shown, discontinue and re-order from Quick Search. Active Mirtazapine 30 MG Tablet 1 tab(s) orally once a day (at bedtime); Duration: 30 day(s) Active Multivitamin 1 TAB ONCE DAILY NAME ONLY Conversion from Multum Review and pick correct strength-formulat ion from [email or web address] options. If intended option is not shown, discontinue and re-order from Quick Search. Active Golytely - POWDER FOR RECONSTITUTION 240 ML ORALLY EVERY 15 MINUTES; Duration: 16 DOSE(S) NAME ONLY Conversion from Multum Review and pick correct strength-formulat ion from [email or web address] options. If intended option is not shown, discontinue and re-order from Quick Search. 07/27/2016 Active Nitrostat 0.4 MG Tablet Sublingual 1 tab(s) sublingually as needed Active Atorvastatin Calcium 20 MG Tablet 1 tab(s) orally once a day (at bedtime) Active Immunizations Vaccine Route Administration Date Status Comme nts DO NOT USE Influenza (whole) Unknown 04/21/2006 Administered DO NOT USE Influenza Unknown 07/01/2005 Administered Tdap (Adacel)11-64,State Supplied IM Intramuscular 04/26/2008 Administered Pneumococcal, PPV 23 IM Intramuscular 04/26/2008 Administe red Influenza IM Intramuscular 06/12/2009 Administered Influenza Unknown 05/30/2010 Administered Influenza IM Intramuscular 07/28/2011 Administered H1N1 inactivated injectable IM Intramuscular 07/29/2009 Administered Social History Tobacco Use: Social History Observation Description Date Details (start date - stop date) Never Smoker NA - NA Social History Tobacco Use: Social Info Question Answer Notes Smoking Are you a: never smoker Additional Details Category Social Info Options Details 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 Problems Problem Type SNOMED Code ICD Code Onset Dates Problem Status W/U Status Risk Notes Problem Diabetes mellitus type II (42979731) Diabetes mellitus type II (250.00) Active confirmed Low Problem Splenic disorder (52919390) Splenic disorder NOS (289.50) Active confirmed Problem Sexual dysfunction (63839674) Sexual dysfunction NOS (302.70) Active confirmed Problem Pancreatitis (75604617) Pancreatitis (577.0) Active confirmed Problem Shoulder joint pain (393471919) Joint pain, shoulder (719.41) Active confirmed Problem special cardiovascular system test abnormal (finding) (227995890) Abnormal cardiovascular study NOS (794.30) Active confirmed Problem Abnormal liver function (64291216) Abnormal liver function study (794.8) Active confirmed Problem Hypercholesterolemia (67948939) Hypercholesterolemia (272.0) Active confirmed Low Problem Pleural effusion (54980632) Pleural effusion NOS (511.9) Active confirmed Problem Acute pancreatitis (547947288) Acute pancreatitis (577.0) Active confirmed Problem Chronic pancreatitis (136984672) Chronic pancreatitis (577.1) Active confirmed Problem Weight loss (307325403) Weight Loss (783.21) Active confirmed Problem Impaired fasting glucose (509498519) Impaired fasting glucose (790.21) Active confirmed Problem Atherosclerosis of coronary artery (714170341) Coronary Artery Disease, unspec (414.00) Active confirmed Problem Epigastric pain (29103788) ABDMNAL PAIN EPIGASTRIC (789.06) Active confirmed Problem Gastrointestinal tract problem (789954144) ABN FINDINGS-GI TRACT (793.4) Active confirmed Problem Abnormal weight loss (992196878) Abnormal loss of weight (783.21) Active confirmed Problem Essential hypertension (96837611) Hypertension essential (401.1) Active confirmed Problem Diarrhea (96003939) Diarrhea (R19.7) Active con firmed Problem Alcohol-induced chronic pancreatitis (005627818) 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 confirmed Problem Chronic pancreatitis (021498398) Other chronic pancreatitis (K86.1) Active confirmed Problem Idiopathic chronic pancreatitis (575813658) Idiopathic chronic pancreatitis (K86.1) Active confirmed Problem Steatorrhea (79072687) Steatorrhea (K90.9) Active confirmed Plan Of Treatment No Information Insurance Providers Payer Name Payer Address Payer Phone Subscriber Number Group Number Insured Name Patient Relationship to Insured Coverage Start Date Coverage End Date [facility] [address] [facility] CHRISTINA Schmitz [id number] NANETTE MARCIAL Self - patient is the insured Medical (General) History Medical History History ICD Code Colonoscopy: 07/08/06 Normal .//Colon10/15/16-12mm polyp desc eiryd24hm-WfyQeodklhd, Rare left tics- Rec PAth-Colon 5yrs coronary artery disease- [place] 2000- LCx stent, stent occlusion with LAD stenting 01/2012 residual LCx and RCA disease // HAd open heart surgery09/24/14-Dr Zepeda CABGx3 Recurrent pancreatitis-Abd T rahannahma kicked in abd 1997. ERCP 06/27=nl CBD,nl PAnc, small ES. ///Subacute qmqyikdnwwcl47/29/09Ciwscb0194-Wcwqfybxbn(recurrent)=ETOH8/week,Lisinopril,Z ocor,idiopathic(fell off ladder 2 weeks before BUT recurrent since 2002.),CT05/21/09Peripanc inflammation c/wPitis// hospitalized [facility] d0p-CF-YBdn haziness with head calcifications. ///MRCP04/06=Chronic pancratitis-Dil pand duct -Can not r/o panc stricture.//08/17/1308-Jdwswk408-kdgk=Amylas,lipase,Compnl,Hgb10.9 GERD DJD multiple foot problems/pain, hereditary kwymhabr95/13-Metformin, last A1C 6.0 - Neuropathy anemia Pleural effusion p pneumonia -CT tapped -cloudy fluid from left lower chest. 07/24/13-Bloody-2/14CT=perisplenic fluid not there previously(?splenic injury)-Needs CT spleen. neuropathy Surgical History Surgery Date(Month/Year) T&A angioplasty-metal stent 2000 ERCP 06/27 colonoscopy (Carlos) 06/2006 Foot surgery 12/2010 cardiac cath, mid LAD lesion tx'd with CAMI, residual LCX/RCA disease (Doreen) 01/28/12 L rotator cuff 04/2013 Triple Bypass 09/24/2014 Hospitalization History Reason Date(Month/Year) pancreatitis 05/02 CAD/elective cardiac cath ([facility]) 01/27-03/[address] [facility] ER Pancreatitis 02/2013 [facility] - Pneumonia, diabetes, pleural effus ion, anemia 07/23/2013 above
--- OUTSIDE RECORDS SUMMARY | 2025-07-11 07:08 | XMS_ITS | Encounter Summary ---
Author Organization [facility] Address [address] [place] [address] Phone Care Team Providers Care Land Planner Name Role Phone Rufino Rajput MD Primary Care Provider [phone] Reason for Visit * Reason Comments Med Refill Encounter Details Date Type Department Care Team (Late Contact Info) Description 06/06/2021 Refill [facility] [address] [place] [id number] Olayinka Saldana MD [address] [place] [address] Social History Tobacco Use Types Packs/Day Years Used Date Smoking Tobacco: Former Cigarettes 0 Q uit: 07/25/2004 Smokeless Tobacco: Former Alcohol [...] Department Care Team (Late Contact Info) Description 07/11/2025 8:30 AM EST Office Visit [facility] [address] [facility] [address] [place] [id number] Karen Plascencia ARNP [address] [address] documented as of this encounter Visit Diagnoses Not on filedocumented in this encounter Care Teams Land Planner Relationship Specialty Start Date End Date Rufino Rajput MD [address] [place] [address] PCP - General Internal Medicine 04/06/21 documented as of this encounter
--- OUTSIDE RECORDS SUMMARY | 2025-07-11 07:09 | XMS_ITS | Encounter Summary ---
Author Organization [facility] Address [address] [place] [address] Phone Care Team Providers Care Dx Board Operator Name Role Phone Rufino Rajput MD Primary Care Provider [phone] Reason for Visit * Reason Comments Med Refill Encounter Details Date Type Department Care Team (Late st Contact Info) Description 07/08/2025 Refill [facility] [address] [place] [phone] Kelby Celaya MD [address] [facility] [address] [place] [address] Social History Tobacco Use Types Packs/Day Years Used Date Smoking Tobacco: Former Cigarettes 0 Q uit: 07/25/2004 Smokeless Tobacco: Never Alcohol Use Standard Drinks/Week Comments Not Currently 0 (1 standard drink = 0.6 oz pur e alcohol) Sex and Gender Information Value Date Recorded Sex Assigned at Not on file Legal Sex Male 4:44 PM EST Gender Identity Not on file Sexual Orientation Not on file documented as of this encounter Plan of Treatment Upcoming Encounters Date Type Department Care Team (Late st Contact Info) Description 07/11/2025 8:30 AM EST Office Visit [facility] [address] [facility] [address] [place] [address] Karen Plascencia ARNP [address] [facility] [address] [place] [address] documented as of this encounter Visit Diagnoses Not on filedocumented in this encounter Care Teams Dx Board Operator Relationship Specialty Start Date End Date Rufino Rajput MD [address] [place] [address] PCP - General Internal Medicine 04/06/21 documented as of this encounter
--- OUTSIDE RECORDS SUMMARY | 2025-07-11 07:09 | XMS_ITS | Clinical Summary ---
Author Organization [facility] Address [address] [place] [address] Care Team Providers Care Liner Replacer Name Role Phone Rufino Rajput MD Primary Care Provider Francisco J Galeana MD Unavailable Orion Rodriguez MD Unavailable [phone] Kelby Celaya MD Unavailable [phone] System, Provider Not In Unavailable Unavaila [...] needed by sublingual route. Active pancrelipase (Creon) [address] Particles Take 1 capsule [...] before surgery). Coronary artery disease invo lving [place] heart without angina pectoris 01/08/2024 Assessment & Plan (01/10/2024 7:13 PM EDT): MS Follows with cardiology. Cardiac clearance scheduled 01/24/24 [...] this topic Medical Devices Implanted Type Area Organ Fixer Device Identifier Shelf Expiration Date Model / Serial / Lot 620-005 Filler Bone Void 5cc 12.5cc Calcium Slf Stimulan Rpd Cure - [id number] Implanted:Qty : 1 on 02/03/2024 by Orion Rodriguez MD at [facility] Void Filler Right: Foot [id number] 03/24/2026 620-005 / / [id number] Procedures Procedure Name Priority Date/Time Associated Diagnosis Comments HEMOGLOBIN A1C WITH ESTIMATED AVERAGE GLUCOSE Routine 01/11/2024 12:22 PM EDT Preop examination Painful orthopaedic hardware (HCC) Acute osteomyelitis of right ankle or foot (HCC) Peripheral polyneuropathy Essential hypertension Pure hypercholesterolemia Coronary artery disease involving [place] heart without angina pectoris, unspecified vessel or [...] hypertension Pure hypercholesterolemia Coronary artery disease involving [place] heart without angina pectoris, unspecified vessel or [...] 7.4(H) <5.7 % 01/11/2024 8:16 PM EDT [facility] Comment: A1c% Interpretation 5.7 - 6.0 Increase risk of diabetes 6.1 - 6.4 Higher risk of diabetes > or = 6.5 Consistent with diabetes Diabetes Care, 33(Supp 1):S1-S61, 2009 Estimated Average Glucose 166 mg/dL 01/11/2024 8:16 PM EDT [facility] Blood Blood specimen / Unknown 01/11/2024 12:22 PM EDT 01/11/2024 7:01 PM EDT us Kaykay Bailey APRN LAB BLOOD ORDERABLES Final R esult [address] [address], [address] [address] * (ABNORMAL) Basic Metabolic Panel (01/11/2024 12:22 PM EDT) Glucose 231(H) 65 - 99 mg/dL 01/11/2024 7:38 PM T [facility] Comment:Fasting: <100 mg/dL, Non-Fasting: <200 mg/dL (ADA 2005) Blood Urea Nitrogen (BUN) 34(H) 8 - [...] 98 - 107 mmol/L 01/11/2024 7:38 PM [facility] CO2 19(L) 22 - 33 mmol/L 01/11/2024 7:38 PM [facility] Anion Gap 11 7 - 17 01/11/2024 7:38 PM [facility] Calcium 9.0 8.7 - 10.5 mg/dL 01/11/2024 7:38 PM [facility] BUN/Creatinine Ratio 16 10.0 - 25.0 Ratio 01/11/2024 7:38 PM [facility] Blood (Plasma/Serum) 01/11/2024 12:22 PM EDT 01/11/2024 7:01 PM EDT us Fabby Barshenavida PULP REFINER OPERATOR LAB BLOOD ORDERABLES Final R esult [address] [address], [address] [address] from Last 3 Months or Most Recently Relevant to Health Maintenance Insurance MEDICARE PART A & B Member Subscriber Plan / Payer (Ef fective 2020-Present) Name:Quentin Lara [place] Member ID:[id number] Relation to Subscriber:Self Name:Quentin Lara Subscriber ID:[id number] Payer ID:[id number] Group ID:Not on file Type:Not on file Address: [address] MEDICARE PART A & B Member Subscriber Plan / Payer (Ef fective 2020-Present) Name:Quentin Lara Member ID:[id number] Relation to Subscriber:Self Name:Quentin Lara Subscriber ID:[id number] Payer ID:[id number] Group ID:Not on file Type:Not on file Address: [address] Advance Directives * Full Code (Latest Code Status on File) Date Activated Date Inactivated Comments 02/03/2024 7:41 AM Care Teams Liner Replacer Relationship Specialty Start Date End Date Rufino Rajput MD [address] [place], [place] PCP - General Internal Medicine 12/27/23 Francisco J Galeana MD [address] [place], [place] Cardiology-Scan 01/06/24 Orion Rodriguez MD [address] [place] [address] Surgery, Orthopedic 01/10/24 [facility] Celaya MD [facility] [address] [address] Physician Nephrology 01/10/24 System, Provider Not In [facility] [address] [place] [address] 01/10/24
--- OUTSIDE RECORDS SUMMARY | 2025-07-11 07:09 | XMS_ITS | Data Portability ---
Author Organization [facility], Main Office Address [address] [facility] [address] [place] [address] Care Team Providers Care Ingot Supervisor Name Role Phone GLYNN HERNÁNDEZ Primary Care Provider SATHISH BRISENO Enrollment Representative JACKY ROUSE Cloth Framer [phone] KATIE NAVARRO Undercover Operator KATHE FITZPATRICK Alarm Mechanism Adjuster JESSICA MINAYA Blocking Machine Operator SEBASTIEN LINK Bead Forming Machine Set Up Operator Assessment No assessment recorded. Plan of Treatment Reminders Order Date Submit Date Provider Last Modified By Organization Details Last Modified Time Details Appointments None recorded. Lab hemoglobi n A1C, fingersti ck 2018 019 [email or web address] In-Office Order, Internal Use Only DO Not Attach Compendium DO Not Attach Compendium, Do Not Delete/merge, [id number] 9 16:07:07 HbA1c (hemoglob in A1c), blood 2018 019 KATHY [facility], [address], [place], [address], 9 22:21:36 HbA1c (hemoglob in A1c), blood 2018 019 KATHY [facility], [address], [place], [address], 9 22:21:53 CMP, serum or plasma 2018 019 KATHY [facility], [address], [address], [place], [address], 9 18:48:40 urinalysi s, complete 2018 019 [facility], [address], [address], [place], [address], 9 18:33:34 CBC w/ auto diff 2018 019 KATH[facility], [address], [address], [place], [address], 9 18:49:41 HbA1c (hemoglob in A1c), blood 2018 019 [facility], [address], [address], [place], [address], 9 22:55:14 ESR (erythroc yte sedimenta tion rate), blood 2018 019 [facility], [address], [address], [place], [address], 9 20:12:23 activated partial thrombopl astin time, coagulati on assay, blood 2018 019 [facility], [address], [address], [place], [address], 9 19:34:47 PT/INR 2018 019 [facility], [address], [address], [place], [address], 9 19:44:19 CMP, serum or plasma 2018 019 [facility], [address], [address], [place], [address], 9 19:58:54 CBC w/ auto diff 2018 019 [facility], [address], [address], [place], [address], 9 19:39:56 PSA, serum or plasma 2018 019 [facility], [address], [address], [place], [place], [address], 9 15:15:17 BMP, serum or plasma 2018 019 [facility], [address], [address], [place], [place], [address], 9 15:27:39 CBC w/ auto diff 2018 019 [facility], [address], [address], [place], [place], [address], 9 13:47:02 iron + total iron-bind ing capacity (TIBC), serum 2018 019 [facility], [address], [address], [place], [address], 9 16:15:02 Referral pain managemen t referral - for follow up on pt with chronic worsenign neuropath y 2018 019 tfrisino [facility], [address] [place], [address], 9 09:41:11 diabetic ophthalmo logy referral 2018 019 KATHY Not available 9 17:39:39 gastroent erologist referral - for eval of pt with anemia and wt loss 2018 019 jeri Minaya MD, [address] [place], [address], 9 17:45:57 nutrition ist/dieti aneudy referral 2018 019 KATHY Not available 9 16:40:32 Procedures None recorded. Surgeries None recorded. Imaging None recorded. Medication Orders Lantus Solostar U-100 Insulin 100 unit/mL (3 mL) subcutane ous pen 2018 019 [email or web address] [facility]/Pharmacy #2339, [address] [place] [address], [place], [address], 9 16:07:07 mirtazapi ne 30 mg tablet 2018 019 INTERFACE [facility]/Pharmacy #2339, [address] [place] [address], [place], [address], 9 09:37:51 venlafaxi ne ER 75 mg capsule,e xtended release 24 hr 2018 019 [facility]/Pharmacy #2339, [address] [place] [address], [place], [address], 9 11:06:36 mirtazapi ne 15 mg tablet 2018 019 berenice [facility]/Pharmacy #2339, [address] [place] [address], [place], [address], 9 16:22:14 venlafaxi ne ER 75 mg capsule,e xtended release 24 hr 2018 019 [facility]/Pharmacy #2339, [address] [place] [address], [place], [address], 9 11:06:36 Nitrostat 0.4 mg sublingua l tablet 2018 019 INTERFACE [facility]/Pharmacy #2339, [address] [place], [place] [address] [place], [address], 9 10:55:03 Patient Targets Encounter Date Encounter Id Patient Goals Patient Target Last Modified By Organization Details Last Modified Time 01/03/2019 [id number] Ongoing of Microalbumin/Cre atinine Ratio yearly Not [...] Not available Not available Not available 01/03/2019 [id number] Pt advised and agrees to do moderate [...] By Organization Details Last Modified Time 09/19/2018 [id number] Nutrition Referral and Weight Management Follow-up Information berenice Not available 09/19/2018 10:55:01 anemia: care instructions awychowski Not available 09/19/2018 10:55:01 10/20/2018 [id number] Diabetic Foot Exam awychowski Not available 10/20/2018 [...] appt. awgabrielowski Not available 10/20/2018 14:49:41 11/17/2018 [id number] learning about type 2 diabetes nbarrows Not available 12/05/2018 09:37:50 type 2 diabetes: care instructions nbarrows Not available 12/05/2018 09:37:50 high blood pressure: care instructions awychowski Not available 11/17/2018 16:40:11 learning about high blood pressure awychowski Not available 11/17/2018 16:40:11 12/19/2018 [id number] depression treatment: care instructions awychowski Not available 12/19/2018 11:34:58 high blood pressure: care instructions awychowski Not available 12/19/2018 11:34:58 learning about high blood pressure awychowski Not available 12/19/2018 11:34:58 non fasting labs in 4 weeks. awychowski Not available 12/19/2018 11:34:56 01/03/2019 [id number] hypoglycemia: care instructions Not available 01/03/2019 16:07:07 Medications (OTC, herbal therapies, supplements) reviewed and reconciled with patient and or caregiver, including potential side effects, drug interactions, instructions, and the consequences of not taking medication. Reviewed potential barriers to medication adherence, such as side effects from medication or cost of medication. rkanu Not available 01/03/2019 14:22:39 Reason for Referral Analytics Director/dietitian Refer ral for Underweight Referring Physician: Glynn Hernández [facility], Encounter Date: 09/19/2018 Diabetic Ophthalmology Refer ral for Diabetic distal sensorimotor polyneuropathy Referring Physician: Glynn Hernández [facility], Encounter Date: 10/20/2018 Blocking Machine Operator Referral for Anemia for eval of pt with anemia and wt loss Referring Physician: Glynn Hernández [facility], Encounter Date: 10/20/2018 Pain Management [...] Go To The Location Of Their Choice, [id number] 08/22/2018 15:48:49 08/22/1908/22/2018 CBC w/ auto diff RBC 3.29 M/mm3 (4.70- 6.10) low Not Available [facility] (Centralized Electronic Ordering - All Locations) Patient Can Go To The Location Of Their Choice, [id number] 08/22/2018 15:48:49 08/22/1908/22/2018 CBC w/ auto diff [...] TEST PERFO RMED USING THE VETO ELECT CoreDialU MINEBizen CENCE TOTAL PSA ASSAY . PSA VALUE [...] Go To The Location Of Their Choice, [address] 10/20/2018 20:12:23 10/21/19 19 10/20/2018 HbA1c (hemo [...] Go To The Location Of Their Choice, [address] 10/20/2018 22:55:14 11/24/1911/23/2018 CBC w/ auto diff [...] Go To The Location Of Their Choice, [id number] 01/03/2019 18:33:34 01/04/2001/03/2019 urina lysis , compl ete sp. gravity 1.018 (1.002 -1.030 ) Not Available [facility] (Centralized Electronic Ordering - All Locations) Patient Can Go To The Location Of Their Choice, 01/03/2019 18:33:34 01/04/2001/03/2019 urina lysis , compl ete urine pH 5.0 (5.0-8 .0) Not Available [facility] (Centralized Electronic Ordering - All Locations) Patient Can Go To The Location Of Their Choice, [address] 01/03/2019 18:33:34 01/04/2001/03/2019 urina lysis , compl ete urine albumin 1+ (neg) abnormal Not Available [facility] (Centralized Electronic Ordering - All Locations) Patient Can Go To The Location Of Their Choice, [address] 01/03/2019 18:33:34 01/04/2001/03/2019 urina lysis , compl ete urine glucose 2+ (neg) abnormal Not Available [facility] (Centralized Electronic Ordering - All Locations) Patient Can Go To The Location Of Their Choice, [address] 01/03/2019 18:33:34 01/04/2001/03/2019 urina lysis , compl ete urine ketones NEGATI VE (neg) Not Available [facility] (Centralized Electronic Ordering - All Locations) Patient Can Go To The Location Of Their Choice, 01/03/2019 18:33:34 01/04/2001/03/2019 urina lysis , compl ete urine bilirubin NEGATI VE (neg) Not Available [facility] (Centralized Electronic Ordering - All Locations) Patient Can Go To The Location Of Their Choice, [address] 01/03/2019 18:33:34 01/04/2001/03/2019 urina lysis , compl ete urine hemoglobin NEGATI VE (neg) Not Available [facility] (Centralized Electronic Ordering - All Locations) Patient Can Go To The Location Of Their Choice, [address] 01/03/2019 18:33:34 01/04/2001/03/2019 urina lysis , compl ete urine nitrite NEGATI VE (neg) Not Available [facility] (Centralized Electronic Ordering - All Locations) Patient Can Go To The Location Of Their Choice, [address] 01/03/2019 18:33:34 01/04/2001/03/2019 urina lysis , compl ete urine leukocyte NEGATI VE (neg) Not Available [facility] (Centralized Electronic Ordering - All Locations) Patient Can Go To The Location Of Their Choice, [address] 01/03/2019 18:33:34 01/04/2001/03/2019 urina lysis , compl ete urobilinogen NORMAL mg/dL (norm) Not Available [facility] (Centralized Electronic Ordering - All Locations) Patient Can Go To The Location Of Their Choice, [address] 01/03/2019 18:33:34 01/04/2001/03/2019 urina lysis , compl ete urine WBC's 1 /hpf (0-5) Not Available [facility] (Centralized Electronic Ordering - All Locations) Patient Can Go To The Location Of Their Choice, [address] 01/03/2019 18:33:34 01/04/2001/03/2019 urina lysis , compl ete urine RBC's 2 /hpf (<3) Not Available [facility] (Centralized Electronic Ordering - All Locations) Patient Can Go To The Location Of Their Choice, [address] 01/03/2019 18:33:34 01/04/2001/03/2019 urina lysis , compl ete mucus SLIGHT /lpf Not Available [facility] (Centralized Electronic Ordering - All Locations) Patient Can Go To The Location Of Their Choice, [address] 01/03/2019 18:33:34 01/04/2001/03/2019 CMP, serum or plasm a glucose 134 mg/dL (70-99 ) high Not Available [facility] (Centralized Electronic Ordering - All Locations) Patient Can Go To The Location Of Their Choice, [address] 01/03/2019 18:48:40 01/04/2001/03/2019 CMP, serum or plasm [...] Go To The Location Of Their Choice, [address] 01/03/2019 18:49:41 01/04/2001/03/2019 CBC w/ auto diff abs. NRBC 0.0 K/mm3 Not Available [facility] (Centralized Electronic Ordering - All Locations) Patient Can Go To The Location Of Their Choice, [address] 01/03/2019 18:49:41 01/04/2001/03/2019 HbA1c (hemo globi n [...] Go To The Location Of Their Choice, [address] 01/03/2019 22:21:36 01/04/2001/03/2019 HbA1c (hemo globi n [...] Go To The Location Of Their Choice, [address] 01/03/2019 22:21:53 01/04/2001/03/2019 hemog lobin A1C, finge rstic k HbA1c 6.7% Not Available In-Office Order Internal Use Only DO Not Attach Compendium DO Not Attach Compendium, Do Not Delete/merge, [id number] 01/03/2019 14:43:15 09/08/19 19 09/08/2018 XR, chest [...] I agree with this report . WSN: [id number] Dictat ed By: Sherwin Malcolm MD Dictat ed Date/T gerri: 11:08 a Review ed By: Henry Slater MD Signed By: Henry Slater MD Signed Date/T gerri: 11:13 am Transc ribed By: ANNY Transc ribed Date/T gerri: 10:39 am Patien t [facility] [address], [place], [address], 09/19/2018 10:45:52 09/14/19 19 09/14/2018 US, abdom [...] nal aorta measur ing 1.8 cm. WSN: [id number] Dictat ed By: Vy Duque MD Dictat ed Date/T gerri: 9:01 am Review ed By: Vy Duque MD Signed By: Vy Duque MD Signed Date/T gerri: 9:01 am Transc ribed By: ANNY Transc ribed Date/T gerri: 8:58 am Patien t Class: Outpat ient [facility] (Outpt Imaging) [address] [place], [address], 09/19/2018 10:45:52 09/30/19 19 09/27/2018 regad enoso n stres s test (PROC ) No observ ation record ed. [facility] [address] [place], [address], 10/20/2018 14:22:03 11/09/19 19 11/08/2018 CT, chest [...] at the head of pancre as. WSN: [id number] Dictat ed By: Elise Srinivasan MD Dictat ed Date/T gerri: 3:47 pm Review ed By: Elise Srinivasan MD Signed By: Elise Srinivasan MD Signed Date/T gerri: 3:47 pm Transc ribed By: ANNY Transc ribed Date/T gerri: 3:29 pm Patien t Class: Outpat ient [facility] (Outpt Imaging) [address] [place], [address], 11/17/2018 16:12:28 12/14/19 20 12/11/2019 trans -thor acic echoc ardio gram (TTE) (PROC ) No observ ation record ed. [facility] [address] [place], [address], 12/17/2019 22:16:50 Result Notes Documentation Provider Name [...] duct at the head of pancreas. WSN: [id number] Dictated By: Elise Srinivasan MD Dictated Date/Time: 11/08/18 3:47 pm Reviewed By: Elise Srinivasan MD Signed By: Elise Srinivasan MD Signed Date/Time: 11/08/18 3:47 pm Transcribed By: ANNY Transcribed Date/Time: 11/08/18 3:29 pm Patient Class: Outpatient Glynn Hernández MD [address] [facility] [address], [place], [address], [facility] 11/17/2018 16:12:28 Problems Name Problem SNOMED Code Status Onset Date Resolution Date Notes Provider Name and Address Organization Details Recorded Time Anemia 999130966 Active Not Available [facility] 0 18:23:48 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 30142639 Completed 05/30/2017 Glynn Hernández MD [address], [address] , [place] [facility] 7 11:34:19 Coronary atherosc lerosis 543428237 Active Not Available [facility] 0 18:23:47 Uncontro lled type 2 diabetes mellitus 074362979 Completed 12/23/2016 STORY: DOMINGO BURROWS RN [phone] /ANA PAULA Hernández MD [address], [place], [address] , [facility] 7 12:06:51 Essentia l hyperten kali 04694051 Active Not Available [facility] 0 18:23:47 Gastroes ophageal reflux disease 228038195 Active Not Available [facility] 0 18:23:47 Pure hypercho lesterol emia 000446128 Active Not Available [facility] 0 18:23:47 Mononeur itis 94253638 Active Not Available [facility] 0 18:23:47 Chronic pancreat itis 743013306 Active Not Available [facility] 0 18:23:47 Neuropat hy due to diabetes mellitus 508602118 Active Not Available [facility] 0 18:23:47 Body mass index 25-29 - overweig ht 550997878 Completed 05/30/2017 Glynn Hernández MD [address], [place], [address] , [facility] 7 11:32:22 Type 2 diabetes mellitus 62423439 Completed 12/05/2018 Removal Reason: not specific [facility] 9 09:38:09 Mitral valve regurgit ation 38693104 Active Not Available [facility] 0 18:23:47 Pain of multiple joints 52501046 Active Not Available [facility] 0 18:23:48 Well controll ed type 2 diabetes mellitus 010362384 Completed 01/03/2019 Soledad Peck PA-C [address], [place], [address] , [facility] 9 14:34:20 Pain of shoulder region 07817026 Completed 10/20/2018 Glynn Hernández MD [address] [address], [place], [address] , [facility] 9 14:39:07 Christine talavera Completed 05/30/2017 Glynn Hernández MD [address] [address], [place], [address] , [facility] 7 11:32:31 Serum creatini ne above referenc e range 193676190 Active Not Available [facility] 0 18:23:47 Diabetic distal sensorim otor polyneur opathy Active Not Available [facility] 0 18:23:47 Knee pain Active Not Available [facility] 0 18:23:47 Hyperkal emia 90660723 Completed 11/19/2016 Glynn Hernández MD [address] [address], [place], [address] , [facility] 7 08:25:48 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 WILL TREAT SYMPTOMA TICALLY AND COVER FOR BACTERIA L SOURCE IF PERSISTA NT.; RECORDED 06/28/20 12 3:37PM BY SHERYL PAREDES MA, ANNOTATI ON/GUERLINEEN RENATO Hernández MD [address] [facility] [address], [place], [address] , [facility] 6 10:12:45 Shoulder joint pain 135823306 Completed 201103/04/2014 IMPRESSI ON: PERSISTA NT DESPITE CONSERVA TICVE THERAPY. WILL SEE WHAT ORTHO THINKS.; RECORDED 06/28/20 12 3:37PM BY SHERYL PAREDES MA, ANNOTATI ON/CORDELL Hernández MD [address] [address], [place], [address] , [facility] 6 10:12:45 Cough 00150870 Completed 201102/05/2014 IMPRESSI ON: SYMPTOMS PRESENT JUST UNDER 1 WEEK. WILL TREAT SYMPTOMA TICALLY AND COVER FOR BACTERIA L SOURCE IF PERSISTA NT.; RECORDED 06/28/20 12 3:37PM BY SHERYL PAREDES MA, ANNOTATI ON/CORDELL Hernández MD [address] [address], [place], [address] , [facility] 6 10:12:45 Shoulder joint pain 002421767 Completed 201102/05/2014 IMPRESSI ON: PERSISTA NT DESPITE CONSERVA TICVE THERAPY. WILL SEE WHAT ORTHO THINKS.; RECORDED 06/28/20 12 3:37PM BY SHERYL PAREDES MA, ANNOTATI ON/CORDELL Hernández MD [address] [address], [place], [address] , [facility] 6 10:12:45 Essentia l hyperten kali 48886120 Completed 201202/05/2014 RECORDED 08/07/19 13 2:35PM BY SHERYL PAREDES MA, CATRACHITOATI ON/CORDELL Hernández MD [address] [address], [place], [address] , [facility] 6 10:12:45 Tobacco user 011999885 Completed 201203/04/2014 RECORDED 09/07/19 13 2:45PM BY SHERYL PAREDES MA, ANNOTATI ON/ADDEN DUM Glynn Hernández MD [address], [place], [address] , [facility] 6 10:12:45 Tobacco user [id number] Completed 201202/05/2014 RECORDED 09/07/19 13 2:45PM BY SHERYL PAREDES MA, ANNOTSARAN ON/CORDELL Hernández MD [address], [place], [address] , [facility] 6 10:12:45 History of clinical finding in subject 324155125 Completed 201203/08/2014 RECORDED 09/07/19 13 2:45PM BY SHERYL PAREDES MA, ANNOTATI ON/ADDAMBER Hernández MD [address] [facility] [address], [place], [address] , [facility] 6 10:12:45 Follow-u p encounte r Completed 201203/04/2014 RECORDED 03/16/20 13 11:54AM BY ELEAZAR OAKES MA, ANNOTSARAN ON/CORDELL Hernández MD [address] [facility] [address], [place], [address] , [facility] 6 10:12:45 Follow-u p encounte r Completed 201202/05/2014 RECORDED 03/16/20 13 11:54AM BY ELEAZAR OAKES MA, ANNOTATI ON/CORDELL Hernández MD [address] [facility] [address], [place], [address] , [facility] 6 10:12:45 Influenz a vaccine needed 51651499212 06 Completed 201203/04/2014 RECORDED 04/06/20 13 1:37PM BY LAKSHMI STEARNS MA, OFFICE VISIT Glynn Hernández MD [address] [facility] [address], [place], [address] , [facility] 6 10:12:45 Influenz a vaccine needed 38423627840 06 Completed 201202/05/2014 RECORDED 04/06/20 13 1:37PM BY LAKSHMI STEARNS MA, OFFICE VISIT Glynn Hernández MD [address] [facility] [address], [place], [address] , [facility] 6 10:12:45 Abdomina l pain 42860404 Completed 201203/04/2014 IMPRESSI ON: HAS RISK FACTORS FOR GASTRITI S. WILL START PPI EMPIRICA LLY WHILE WAITING FOR GI F/U.; RECORDED 04/10/20 13 3:36PM BY LAKSHMI STEARNS MA, ANNOTSARAN ON/ADDEN RENATO Hernández MD [address] [facility] [address], [place], [address] , [facility] 6 10:12:45 Adult health examinat ion Completed 201203/04/2014 IMPRESSI ON: WILL UPDATE IMMUNIZA TION STATUS AND SCREEN BASED ON RISK FACTORS. REGULAR DENTAL CARE AND SEATBELT USE ADVISED. DISTRACT ED DRIVING DISCUSSE D. COLON CANCER SCREENIG N UTD. PROSTATE CANCER SCREENIN G TAILORED BASED ON RISK FACTORS. ; RECORDED 04/10/20 13 3:36PM BY LAKSHMI STEARNS MA, SAMMY ON/CORDELL Hernández MD [address] [facility] [address], [place], [address] , [facility] 6 10:12:45 Abdomina l pain 11840458 Completed 201202/05/2014 IMPRESSI ON: HAS RISK FACTORS FOR GASTRITI S. WILL START PPI EMPIRICA LLY WHILE WAITING FOR GI F/U.; RECORDED 04/10/20 13 3:36PM BY LAKSHMI STEARNS MA, SAMMY ON/CORDELL Hernández MD [address] [facility] [address], [place], [address] , [facility] 6 10:12:45 Adult health examinat ion Completed 201202/05/2014 IMPRESSI ON: WILL UPDATE IMMUNIZA TION STATUS AND SCREEN BASED ON RISK FACTORS. REGULAR DENTAL CARE AND SEATBELT USE ADVISED. DISTRACT ED DRIVING DISCUSSE D. COLON CANCER SCREENIG N UTD. PROSTATE CANCER SCREENIN G TAILORED BASED ON RISK FACTORS. ; RECORDED 04/10/20 13 3:36PM BY LAKSHMI STEARNS MA, CATRACHITOATI ON/CORDELL Hernández MD [address] [facility] [address], [place], [address] , [facility] 6 10:12:45 Type 2 diabetes mellitus without complica tion 721956074 Completed 201303/04/2014 RECORDED 08/10/19 14 11:00AM BY ELEAZAR OAKES MA, SAMMY ON/CORDELL Hernández MD [address] [facility] [address], [place], [address] , [facility] 6 10:12:45 Laborato ry procedur e performe d 699987751 Completed 201303/04/2014 RECORDED 08/10/19 14 10:59AM BY ELEAZAR OAKES MA, SAMMY ON/CORDELL Hernández MD [address] [address], [place], [address] , [facility] 6 10:12:45 Mononeur itis of lower limb Completed 201303/04/2014 RECORDED 08/10/19 14 11:00AM BY ELEAZAR OAKES MA, SAMMY ON/CORDELL Hernández MD [address] [facility] [address], [place], [address] , [facility] 6 10:12:45 Type 2 diabetes mellitus without complica tion 286230240 Completed 201302/05/2014 RECORDED 08/10/19 14 11:00AM BY ELEAZAR OAKES MA, SAMMY ON/CORDELL Hernández MD [address], [place], [address] , [facility] 6 10:12:45 Laborato ry procedur e performe d 578765652 Completed 201302/05/2014 RECORDED 08/10/19 14 10:59AM BY ELEAZAR OAKES MA, SAMMY KELSEY/CORDELL Hernández MD [address], [place], [address] , [facility] 6 10:12:45 Mononeur itis of lower limb Completed 201302/05/2014 RECORDED 08/10/19 14 11:00AM BY ELEAZAR OAKES MA, SAMMY ON/CORDELL Hernández MD [address] [facility] [address], [place], [address] , [facility] 6 10:12:45 Lipoma 80663484 Completed 201303/04/2014 IMPRESSI ON: MOST LIKELY DIAGNOSI S. REASSURA NCE PROVIDED . IF CHANGES OR BECOMES UNCOMFOR TABLE WILL EVALUATE FURTHER. ; RECORDED 10/12/19 14 12:56PM BY LAKSHMI STEARNS MA, SAMMY ON/CORDELL Hernández MD [address] [facility] [address], [place], [address] , [facility] 6 10:12:45 Lipoma 59569768 Completed 201302/05/2014 IMPRESSI ON: MOST LIKELY DIAGNOSI S. REASSURA NCE PROVIDED . IF CHANGES OR BECOMES UNCOMFOR TABLE WILL EVALUATE FURTHER. ; RECORDED 10/12/19 14 12:56PM BY LAKSHMI STEARNS MA, SAMMY KELSEY/CORDELL Hernández MD [address], [place], [address] , [facility] 6 10:12:45 Renewal of prescrip tion Completed 201303/04/2014 RECORDED 11/16/19 14 1:29PM BY LAKSHMI STEARNS MA, SAMMY ON/CORDELL Hernández MD [address] [facility] [address], [place] [place], [address] , [facility] 6 10:12:45 Pleural effusion [id number] Completed 201303/04/2014 IMPRESSI ON: WORSE SINCE IN THE HOSPITAL 2 WEEKS AGO. GAVE HIM CHOICE OF ER OR SEEING PULMONAR Y NEXT WEEK. HE WOULD LIKE TO WAIT. HE WILL GO TO ER IF ANY FEVERS, ANY WORSENIN G PAIN.; RECORDED 11/16/19 14 2:08PM BY GLYNN Macias MD, SAMMY ON/CORDELL Hernández MD [address] [facility] [address], [place], [address] , [facility] 6 10:12:45 Uncontro lled type 2 diabetes mellitus 408239035 Completed 201302/05/2014 IMPRESSI ON: BASED ON HOME MEASUREM ENTS CONTROL IS INADEQUA TE. WILL MAXIMIZE METFORMI N DOSE AND RECHECK LABS.; RECORDED 11/16/19 14 1:29PM BY LAKSHMI STEARNS MA, SAMMY ON/CORDELL Hernández MD [address] [facility] [address], [place], [address] , [facility] 7 12:06:51 Renewal of prescrip tion Completed 201302/05/2014 RECORDED 11/16/19 14 1:29PM BY LAKSHMI STEARNS MA, SAMMY KELSEY/CORDELL Hernández MD [address] [facility] [address], [place], [address] , [facility] 6 10:12:45 Pleural effusion 26186719 Completed 201302/05/2014 IMPRESSI ON: WORSE SINCE IN THE HOSPITAL 2 WEEKS AGO. GAVE HIM CHOICE OF ER OR SEEING PULMONAR Y NEXT WEEK. HE WOULD LIKE TO WAIT. HE WILL GO TO ER IF ANY FEVERS, ANY WORSENIN G PAIN.; RECORDED 11/16/19 14 2:08PM BY GLYNN Macias MD, ANNOTATI ON/CORDELL Hernández MD [address] [facility] [address], [facility] [place], [address] , [facility] 6 10:12:45 Pneumoni a [id number] Completed 201303/08/2014 IMPRESSI ON: RADIOLOG IST READ STATES THERE MAY STILL BE CONSOLID ATION IN LUNG. PULMONAR Y TO REASSESS NEXT WEEK; RECORDED 11/16/19 14 1:34PM BY LAKSHMI STEARNS MA, OFFICE VISIT Glynn Hernández MD [address] [facility] [address], [facility] [place], [address] , [facility] 6 10:12:45 Pneumoni a [id number] Completed 201303/04/2014 IMPRESSI ON: RADIOLOG IST READ STATES THERE MAY STILL BE CONSOLID ATION IN LUNG. PULMONAR Y TO REASSESS NEXT WEEK; RECORDED 01/10/20 14 5:46PM BY GLYNN Macias MD, ANNOTATI ON/CORDELL Hernández MD [address] [facility] [address], [facility] [place], [address] , [facility] 6 10:12:45 Chronic kidney disease stage 3 235309293 Active 2016 Not Available [facility] 0 18:23:47 Bilatera l tinnitus 40065157015 02 Active 2017 Not Available [facility] 0 18:23:47 Sensorin eural hearing loss 14944283 Active 2017 Not Available [facility] 0 18:23:47 Albuminu charlie 067492768 Active 2018 Not Available [facility] 0 18:23:47 Dilatati on of aorta 82046934 Active 2018 1.8 cm abdomina l Not Available [facility] 0 18:23:47 Steatoti c liver disease 064428173 Active 2018 Not Available [facility] 0 18:23:47 Recurren t major depressi on 82893264 Active 2018 Not Available [facility] 0 18:23:47 Renal disorder due to type 2 diabetes mellitus 249291658 Active 2018 Not Available [facility] 0 18:23:48 Narrow angle of anterior chamber of left eye 52625792490 539081 Active 2018 Not Available [facility] 0 18:23:47 Nuclear cataract 15614386 Active 2018 Not Available [facility] 0 18:23:48 Aortic root dilatati on 109511638 Active 2019 Not Available [facility] 0 18:23:47 Noncompl iance with medicati on regimen 551708269 Active 2020 Glynn Hernández MD [address] [address], [place], [address] , [facility] 1 22:01:23 Notes:Some problems listed i n Documents: #[id number], #[id number], #[id number], #[id number], #[id number], #[id number], #[id number], #[id number] could not be added to this patient's chart. Please review these documents and add these problems to the patient's chart manually as needed. Problem Notes None recorded. Procedures Surgical History Date Name Laterality Status Provider Name and Address Organization Details Recorded Time 12/11/19 20 Echo transthoracic completed Glynn Hernández MD [address], [address], [facility] 12/17/2019 22:15:25 01/16/20 19 iridotomy completed Glynn Hernández MD [address], [address], [facility] 01/31/2019 10:16:14 01/04/20 19 Diabetic Foot Exam (Monofilament) completed Margaret Coe [facility] 01/03/2019 14:22:39 10/31/19 19 angiography of coronary artery completed Glynn Hernández MD [address] [facility], [place], [address], [facility] 11/17/2018 16:23:33 09/28/19 19 radionuclide imaging of perfusion of myocardium under exercise stress completed Glynn Hernández MD [address] [facility], [place], [address], [facility] 10/02/2018 14:15:32 10/16/19 17 Colonoscopy completed Lakshmi Stearns MA [facility] 11/18/2016 11:20:22 03/11/20 16 Stress Test completed Glynn Hernández MD [address] [facility], [place], [address], [facility] 03/21/2016 10:16:26 11/05/19 15 Echo Transthoracic completed Glynn Hernández MD [address] [place] [address], [address], [facility] 11/07/2014 17:34:46 09/25/19 15 CABG completed Glynn Hernández MD [address] [facility] [address] [facility], [place], [address], [facility] 09/29/2014 12:48:27 01/23/20 12 Imaging, cardiac cath completed Glynn Hernández MD [address] [facility] [address] [place] [address], [address], [facility] 09/17/2014 09:24:50 01/23/20 12 Cardiac Surgery completed Glynn Hernández MD [address] [place] [address], [address], [facility] 10/20/2018 14:20:26 06/24/20 06 Colonoscopy completed Lakshmi Stearns MA [facility] 06/13/2014 11:12:06 01/23/20 01 Cardiac Surgery completed Lakshmi Stearns MA [facility] 02/24/2016 13:01:28 Tonsillectomy completed Lakshmi Stearns [place] [facility] 02/24/2016 13:01:28 Orthopedic Surgery completed Lakshmi Stearns MA [facility] 02/24/2016 13:01:28 Imaging Results None recorded. Procedure Notes None recorded. Medical Equipment None Reported. Allergies Allergen ID Allergen Name Allergen Category Reaction Reaction Severity Criticality Documentation Date Start Date Code Code System Note Provider Name and Address Organization Details Recorded Time 29215 codeine medicatio n other Not available Not available 05/18/20212013 2670 RxNorm Aimee Courtney rojas, [facility] 1 10:42:54 4674 codeine sulfate medicatio n tachycard ia Not available Not available 02/05/20142013 88187 RxNorm Glynn Hernández MD [address] [facility] [address], [place], [address], [facility] 7 11:31:43 Medications Name Sig Start Date Stop Date Status Note LastModified by Organization Details LastModified Time amitripty line hcl 25 mg tabs 1 tablet at bedtime active Not Available Not Available No t Available metformin hcl 1000 mg tabs active [...] order, pt needs this script sent to [facility] while waiting 2 weeks for mail order [...] 14 11:05AM BY ELEAZAR OAKES MA, OFFICE VISIT;[facility] 07/26/13 IN EVENING Not Available Not Available [...] Available Not Available Not Available Fluarix Quad 1848-4742 (PF) 60 mcg (15 mcg x 4)/0.5 [...] weight Heart rate Body temperature Oxygen saturation Systolic And Diastolic Provider Name and Address Organization Details Last Updated DateTime 9 175.9 cm 18.2 kg/m2 92567.4 5 g 65 /min 96.8 [degF] 98 % 101/69 mm[Hg] Lakshmi Stearns [facility] 9 10:24:44 Date Recorded Body height Body mass index (BMI) Body weight Heart rate Oxygen saturation Body temperature Systolic And Diastolic Provider Name and Address Organization Details Last Updated DateTime 9 175.9 cm 20.2 kg/m2 01221.7 5 g 79 /min 97 % 98.3 [degF] 108/69 mm[Hg] Lakshmi Stearns [facility] 9 14:10:15 Date Recorded Body height Body mass index (BMI) Body weight Heart rate Oxygen saturation Body temperature Systolic And Diastolic Provider Name and Address Organization Details Last Updated DateTime 9 175.9 cm 21.3 kg/m2 21190.8 9 g 60 /min 100 % 98.7 [degF] 112/74 mm[Hg] Lakshmi Stearns [facility] 9 15:41:31 Date Recorded Body height Body temperature Oxygen saturation Heart rate Body mass index (BMI) Body weight Systolic And Diastolic Provider Name and Address Organization Details Last Updated DateTime 9 175.9 cm 97.7 [degF] 98 % 60 /min 21.3 kg/m2 32870.8 9 g 103/67 mm[Hg] Lakshmi Stearns MA [facility] 9 11:13:44 Date Recorded Body height Body mass index (BMI) Body weight Heart rate Oxygen saturation Systolic And Diastolic Provider Name and Address Organization Details Last Updated DateTime 9 175.9 cm 22 kg/m2 77306.9 6 g 68 /min 96 % 126/80 mm[Hg] Margaret Coe [facility] 9 14:26:55 Social History Question Answer Notes LastModified by Organizat ion Details LastModified Time Tobacco Smoking Status Former Smoker quit 2008 Not Available [facility] 05/27/2020 03:36:41 Do You Have An Advance Directive? Yes HCP/ Girlfriend-Sh justine [id number] Information not available 05/27/2020 Is Blood Transfusion Acceptable In An Emergency? Yes [id number] Information not available 05/27/2020 What Is Your Level Of Caffeine Consumption? None [id number] Information not available 05/27/2020 How Much Tobacco Do You Chew? None [id number] Information not available 05/27/2020 What Type Of Diet Are You Following? CARDIAC [id number] Information not available 05/27/2020 Which Illicit Or Recreational Drugs Have You Used? None [id number] Information not available 05/27/2020 Live Alone Or [...] Of Your Most Recent Tobacco Screening? 01/03/2019 [id number] Information not available 05/27/2020 How Many Children Do You Have? 2 Sons [id number] Information not available 05/27/2020 Seat Belts Used Routinely Yes Information not available 06/13/2014 Are You Sexually Active? Yes [id number] Information not available 05/27/2020 Smoke Alarm In Home Yes Information not available 02/24/2016 At What Age Did You Start Smoking Tobacco? 20 [id number] Information not available 05/27/2020 Are You Passively Exposed To Smoke? Yes Information not available 02/24/2016 How Much Tobacco Do You Smoke? 0.5 PPD [id number] Information not available 05/27/2020 Do You Use Sunscreen Routinely? Yes [id number] Information not available 05/27/2020 How Many Years Have You Smoked Tobacco? 33 [id number] Information not available 05/27/2020 Sex: Unknown Functional Status Question Answer Note LastModified by Organizat ion Details LastModified Time What is your level of alcohol consumption? Occasional wine [id number] Information not available 05/27/2020 Are you currently employed? No [id number] Information not available 05/27/2020 Are you able to care for yourself independently? Yes [id number] Information not available 05/27/2020 What is your occupation? retired [employer] [email or web address] [employer] Information not available 06/13/2014 What is your exercise level? None [id number] Information not available 05/27/2020 Mental Status None [...] high-dose, trivalent, PF 4 completed Not Available [facility] 04/18/2020 18:23:48 Influenza, high-dose, trivalent, PF 5 completed Not Available [facility] 04/18/2020 18:23:48 Influenza, split virus, quadrivalent, preservative 6 completed Not Available [facility] 04/18/2020 18:23:48 Influenza, MDCK, quadrivalent, PF 8 completed Aimee xie [facility] 05/18/2021 10:43:09 Influenza, MDCK, quadrivalent, PF 9 completed Aimee xie [facility] 05/18/2021 10:43:09 Influenza, split virus, quadrivalent, PF 7 completed Not Available [facility] 08/11/2019 02:22:11 Tdap 9 completed Not Available [facility] 08/11/2019 02:21:49 influenza, seasonal, intradermal, preservative free 2 completed Not Available [facility] 04/18/2020 18:23:48 influenza, seasonal, intradermal, preservative free 3 completed Not Available [facility] 04/18/2020 18:23:48 Tdap 8 completed Not Available [facility] 04/18/2020 18:23:48 pneumococcal conjugate PCV 7 8 completed Not Available [facility] 04/18/2020 18:23:48 pneumococcal polysaccharide PPV23 4 completed Not Available [facility] 04/18/2020 18:23:48 Past Encounters Encounter ID Performer Location Encounter Start Date Encounter Closed Date Diagnosis/Indication Diagnosis SNOMED-CT Code Diagnosis ICD10 Code Diagnosis IMO Codes Diagnosis Note [id number] autoEComm erce [address] [facility] [place] [address] 06/05/2012 00:00:00 [id number] autoEComm erce [address] [facility] [place] [address] 08/07/2012 00:00:00 [id number] autoEComm erce [address] [facility] [place] [address] 11/15/2012 00:00:00 [id number] autoEComm erce [address] [facility] [place] [address] 04/06/2013 00:00:00 [id number] autoEComm erce [address] [facility] [place] [address] 07/04/2013 00:00:00 [id number] autoEComm erce [address] [facility] [place] [address] 08/10/2013 00:00:00 [id number] autoEComm erce [address] [facility] [place] [address] 10/03/2013 00:00:00 [id number] autoEComm erce [address] [facility] [place] [address] 11/15/2013 00:00:00 [id number] autoEComm erce [address] [facility] [place], [place] [address] 12/14/2013 00:00:00 [id number] Glynn Hernández MD Main Office [address] [facility] [address] [place] [address] 03/08/2014 15:04:54 03/08/2014 15:59:04 Uncontrolled type 2 diabetes mellitus 064448892 Pt has lab orders from November and will have them done myah. Ophtho exam utd. Neuropathy due to diabetes mellitus 209667458 Not responding to gabapentin . Will try Lyrica and titrate as tolerated to goal pain control. Essential hypertension 59735076 Well controlled . Continue current regimen. [id number] Glynn Hernández MD Main Office [address] [facility] [address] [place] [address] 06/13/2014 10:49:55 06/13/2014 12:08:08 Adult health examination 161490857 Immunizati on status utd, will screen based on risk factors. Colon cancer screening utd, prosate cancer screening deffered secondary to low risk. Regular dental and ophtho care advised as well as seatbelt and sunscreen use. Distracted driving discussed. Advance directives in place. Body mass index 25-29 - overweight 417106068 Neuropathy due to diabetes mellitus 859132058 Not responding to gabapentin or lyrica. Will consult neuro for further evalution and treatment recommenda tions. Coronary atherosclerosis 470640992 Asymptomat ic with goal risk factor control. Cntinue current regimen. Uncontroll ed type 2 diabetes mellitus 925264055 Pt has lab orders from November and will have them done myah. Ophtho exam utd. Anemia 214837064 Has been stable. Will follow. [id number] Glynn Hernández MD Main Office [address] [facility] [address] [place] [address] 10/21/2014 14:44:22 10/21/2014 15:41:20 Coronary atherosclerosis 328466763 Asymptomat ic post CABG. Will reassess risk factor control. Cntinue current regimen for now. Essential hypertension 09482974 Well controlled . Continue current regimen. Anemia 562826553 Has been stable. Will follow. Uncontroll ed type 2 diabetes mellitus 208536093 [id number] Glynn Hernández MD Main Office [address] [facility] [address] [place] [address] 01/29/2015 11:15:31 01/29/2015 12:14:47 Essential hypertension 69989356 Well controlled . Continue current regimen. Pain of mu ltiple joints 99289617 Has risk for vitamin D deficiency which may be contributi ng to some of his pain along with neuropathy . Neuropathy due to diabetes mellitus 428393913 Not responding to gabapentin or Lyrica. Had EMG pending with neuro. Will see if Cymbalta helps with his discomfort . Well contr olled type 2 diabetes mellitus 028419433 [id number] Glynn Hernández MD Main Office [address] [facility] [address] [place] [address] 06/16/2015 10:57:24 06/16/2015 11:56:38 Adult health examination 145372554 Z00.00 Immunizati on status utd, will screen based on risk factors. Colon cancer screening utd, prosate cancer screening deferred secondary to low risk. Regular dental and ophtho care advised as well as seatbelt and sunscreen use. Distracted driving discussed. Advance directives in place. Neuropathy due to diabetes mellitus 356880510 E11.40 Working with neuro to gain better control. Current regimen is affording some relief. Coronary atherosclerosis 469206238 I25.10 Asymptomat ic with goal risk factor control. Continue current regimen. Uncontroll ed type 2 diabetes mellitus 539379172 E11.65 Will reassess control. Ophtho exam utd. Anemia 279372288 D64.9 Has been stable. Will follow. Chronic pancreatitis 235 397428 K86.1 Pain of sh oulder region 83679473 M25.511 Will call if persistent /worse to try PT and consider PMR/ortho eval. [id number] Glynn Hernández MD Main Office [address] [facility] [address] [place] [address] 10/16/2015 11:29:30 10/16/2015 12:21:59 Type 2 diabetes mellitus 96697902 E11.9 Very well controlled . Will decrease sulfonylur ea dose and see if still needed. Essential hypertension 63599794 I10 Well controlled . Continue current regimen. 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 Will be following up with cards in next few months. Claudication 006120580 I 73.9 Start with PVR and if abnormal try pletal and consult vascular. Neuropathy due to diabetes mellitus 925154468 E11.40 Working with neuro to gain better control. Current regimen is affording some relief. [id number] Richy Peck PA-C Main Office [address] [address] [place] [address] 01/27/2016 12:58:25 01/27/2016 14:09:31 Knee pain 40892590 M25.561 pt states [place] [id number] Richy Peck PA-C Main Office [address] [address] [place] [address] 02/24/2016 12:49:07 02/24/2016 14:41:36 Knee pain 33689385 M25.561 no sig. help c PT -- will refer to [facility] - ? needs synvisc vs. check CT/MRI - needs arthroscop y? Hyperkalemia 45068999 E8 7.5 Serum crea tinine above reference range 097454377 R79.89 Coronary atherosclerosis 167606230 I25.812 seen by carmen. 8.1 - checked lipids, resumed statin recently - pending stress test in 2 weeks -- d/t above knee pain, ? private branch exchange repairer to pharmacolo gic stress test [id number] Richy Peck PA-C Main Office [address] [address] [place] [address] 03/10/2016 10:30:28 03/10/2016 11:26:16 Pure hypercholesterolemia 003653304 E78.0 Essential hypertension 97592765 I10 bp stable on BB and off acei x 2 wks Neuropathy due to diabetes mellitus 384807709 E11.40 f/u c neurologis t Type 2 bertram betes mellitus 60533513 E11.22 25 minute office visit with greater than 50% of the visit face-to-fa ce with the patient and/or family providing counseling and/or coordinati on of care. Arterioscl erosis of coronary artery bypass graft 192314932 I25.810 [id number] Glynn Hernández MD Main Office [address] [place] [address] 05/06/2016 10:51:00 05/06/2016 12:03:15 Neuropathy due to diabetes mellitus 561775067 E11.40 Recalcitra nt to neuropathi c pain meds. Will ask PMR for further management recommenda tions. Essential hypertension 45137799 I10 Better on recheck but not at goal. If Cr stable and K level normal will resume 10mg QD. Pt has appt with Dr. Briseno in 2 weeks. Osteoarthr itis of knee 978278438 M17.11 Ask PMR for considerat ion of injection trial or other treatment options. Hypercholesterolemia 136 68194 E78.2 Reassess since resumtion of statin therapy. [id number] Glynn Hernández MD Main Office [address] [place] [address] 11/18/2016 10:58:00 11/18/2016 12:13:19 Pain of multiple joints 58098033 M25.50 ? if related to establishe d OA diagnosis vs neuropathy vs fibromyosi tis vs reactive arthropath y vs autoimmune phenomenon . Will try another pain managament referral. Diabetic d istal sensorimotor polyneuropathy 715714338 E11.42 Diabetes has been well controlled . Continue current regimen. 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 Continue current regimen. Major depr essive disorder 921041247 F32.9 ? if this is the cause or response to his chronic pain issues. Essential hypertension 96928106 I10 Will follow for now and depending on lab results resume low dose ACEI. [id number] Glynn Hernández MD Main Office [address] [place] [address] 12/23/2016 11:27:59 12/23/2016 12:26:20 Essential hypertension 88684522 I10 Will titrate BB and follow. Reluctant to resume ACEI given bump in creatinine that occurred last fall when he was on it. Knee pain 73561118 M25.5 61 M25.562 c/w his neuropathy which seems to be improving with venlafaxin e. Will follow. Unexplaine d weight loss 704181625 R63.4 Screen for thyroid disease and significan t pulmonary pathology. Anemia 713888411 D64.9 Had been stable. Will follow. Major depr essive disorder 335674844 F32.9 Will titrate SNRI dose. Bilateral hearing loss 44979578 H91.93 Becoming problemati c. Pt is considerin lesley further evaluation and treatment. [id number] Glynn Hernández MD Main Office [address] [address] [place] [address] 01/20/2017 13:31:07 01/20/2017 14:20:51 Essential hypertension 46678359 I10 Fair control. Continue current dose for now, Reluctant to resume ACEI given bump in creatinine that occurred last fall when he was on it. Knee pain 19825832 M25.5 61 M25.562 c/w his neuropathy which seems to be improving with venlafaxin e. Will follow. Diabetic d istal sensorimotor polyneuropathy 071065403 E11.42 Diabetes has been well controlled . Will decrease metformin dose. Anemia 945354176 D64.9 Had been stable. Will follow. Primary er ectile dysfunction 551978683 N52.9 Pt requesting rx. Has tolerated well in the past and has no contraindi cations. [id number] Glynn Hernández MD Main Office [address] [address] [place] [address] 04/22/2017 10:31:20 04/22/2017 12:23:20 Needs influenza immunization 870217965 Z23 Diabetic d istal sensorimotor polyneuropathy 497511454 E11.42 Will reduce metformin dose and reassess a1c in 3 months.Wor perla with pain mgmt. Ging to start lamictal and considerin g medical m[facility] [place] . Essential hypertension 70538679 I10 Will add low dose diuretic for added control and monitor potassium. Screening for malignant neoplasm of prostate 865360131 Z12.5 Check PSA prior to upcoming CAX. [id number] Glynn Hernández MD Main Office [address] [address] [place] [address] 05/30/2017 10:57:48 05/30/2017 12:01:29 Adult health examination 789311644 Z00.00 Immunizati on status UTD, shingles advised via local pharmacy. Will screen based on risk factors. Colon cancer screening utd, will check 1 more PSA. Regular dental and ophtho care advised as well as seat belt and sunscreen use. Distracted driving discussed. Advance directives in place. Anemia 815499427 D64.9 Pt will d/c iron and folic acid. Will follow counts with these changes. Pure hypercholesterolemia 825332292 E78.00 LDL at goal. Continue current regimen. Well contr olled type 2 diabetes mellitus 488362888 E11.9 Improved control with weight loss. Will wean metformin dosing as long as A1C stays <6. Diabetic d istal sensorimotor polyneuropathy 337783357 E11.42 Essential hypertension 47659268 I10 Well controlled with addition of diuretic. Will continue current regimen. [id number] Glynn Hernández MD Main Office [address] [facility] [address] [place] [address] 08/22/2018 09:57:31 08/22/2018 11:18:46 Essential hypertension 14376992 I10 Having orthostati c symptoms, so we'll d/c the diuretic and possibly BB if persistent . Type 2 bertram betes mellitus 37097968 E11.9 Fair control. Off of meds. Will defer resuming meds until lab work is done. Unintentio nal weight loss 578094236 R63.4 Based on comorbidit ies needs eval for possible occult malignancy wilian pancreatic /lung. Paresthesia 15361168 R20 .2 Chronic pancreatitis 235 747377 K86.1 Chronic ki dney disease stage 3 352762441 N18.[address] Briseno next week. Requires a tetanus booster 763259532 Z23 Administra tion of viral vaccine 67620811 Z23 [id number] Glynn Hernández MD Main Office [address] [facility] [address] [place] [address] 09/19/2018 10:00:58 09/19/2018 11:03:19 Early satiety 711564307 R68.81 With continued weight loss. Will see if insurance will cover high end imaging now for him. Unintentio nal weight loss 485325160 R63.4 Based on comorbidit ies needs eval for possible occult malignancy wilian pancreatic /lung. Anemia 887900012 D64.9 Refer to heme for further eval if stool is negative for occult blood, to GI if positive. Arterioscl erosis of coronary artery bypass graft 318945385 I25.810 Refill requested. Await results of stress testing. Underweight 473078596 R6 3.6 Z68.1 Patients body weight is below the normal range for age (<18.5). Discussed implicatio ns of low weight such as general health, bone health, immune function, iron absorption . [id number] Glynn Hernández MD Main Office [address] [facility] [address] [place] [address] 10/20/2018 13:46:55 10/20/2018 14:53:24 Adult health examination 538595010 Z00.00 Immunizati on status UTD, Shingrix advised via local pharmacy. Will screen based on risk factors. Routine colon and prostate cancer screenign are utd. Regular dental and ophtho care advised as well as seat belt and sunscreen use. Distracted driving discussed. Advance directives in place. Varicella vaccination 68 254182 Z23 Diabetic d istal sensorimotor polyneuropathy 948099633 E11.42 Pt will f/u with ophtho myah. Recurrent major depression 53938885 F33.1 Venlafaxin e not working for mood or pain, so will try mirtazepin e to help with sleep and appetite. Anemia 012594366 D64.9 Insurance wont' cover abdominal imaging for evaluation of this issue and weight loss so will ask GI to consider endoscopie s even though stool cards were negative. Purpura an d/or petechiae 240366700 R23.3 Screen for vasculitis /coagulopa thy Coronary atherosclerosis 311666079 I25.10 Having cardiac cath done next week for abnormal stress test. [id number] Glynn Hernández MD Main Office [address] [facility] [address] [facility] [place] [address] 11/17/2018 15:20:46 11/17/2018 16:39:55 Essential hypertension 97776168 I10 Well controlled on BB. Will monitor with weight. Recurrent major depression 89585394 F33.1 Mood, appetite and sleep seem to be improving with mirtazapin e. Will titrate and d/c venlafaxin e. Continue slow venlafaxin e wean. Diabetic d istal sensorimotor polyneuropathy 665274864 E11.42 Complicate d, and refractory to numerous nerve modulating medication s. Will re establish care with pain mgmt. Will continue current metformin dosing while monitoring corie function. Will ask Soledad to help with management . Anemia 024286501 D64.9 On procrit via renal. Will follow counts. [id number] Glynn Hernández MD Main Office [address] [facility] [address] [place] [address] 12/19/2018 10:36:36 12/19/2018 11:38:37 Essential hypertension 26663702 I10 Well controlled on BB. Will monitor with weight. Recurrent major depression 65713987 F33.1 Mood, appetite and sleep seem to be improving with mirtazapin e. Will titrate and d/c venlafaxin e. Continue slow venlafaxin e wean. Anemia 726256100 D64.9 On procrit via renal. Will follow counts. Bilateral glaucoma 30258 49488 9234768 H40.9 per pt report will need repair for closed angle disease. Will request records. Uncontroll ed type 2 diabetes mellitus 337059270 E11.65 Metformin dosing recently titrated. Has appt with VM upcoming. [id number] Henry Romero MD Main Office [address] [facility] [address] [place] [address] 01/03/2019 14:16:54 01/03/2019 15:36:52 Uncontrolled type 2 diabetes mellitus 923727405 E11.65 HGA1c today again is down to [...] CGM log. Diabetic d istal sensorimotor polyneuropathy 266685278 E11.42 Pt. has jason with pain management . Chronic ki dney disease stage 3 869420429 N18.3 F/u with nephrologi st as scheduled. 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 409671233 E11.22 Health Concerns Section Related Observation LastModified by Organization Detai ls LastModified Time None Recorded Concern Status LastModified by Organization Details LastModified Time None Recorded Advance Directives Directive Y: HCP/ Girlfriend-Santa Payers Insurance Date Sequence Insurance Name Policy Number Policy Adorno Covered Member ID Adorno Member ID Guarantor Name 12/14/2018 2 [place] [facility] Quentin Lara [id number] Quentin Lara 03/28/2020 1 [facility] [id number] Quentin Lara [id number] Quentin Lara 12/14/2018 2 [place] [facility] Quentin Lara [id number] Quentin Lara Notes Date Note Type Note [...] of early satiety. Glynn Hernández MD [address] [address], [place], [address], [facility] 09/19/2018 13:08:48 9 text/html Generic HPI TemplateReported by PatientHere for a physical. Seeing ophtho regularly, no dentist. Glynn Hernández MD [address] [address], [place], [address], [facility] 10/20/2018 14:55:32 9 text/html Hypertension F/UReported by [...] in his chronic neuropathic pain. Mely xie, [facility] [place] 12/05/2018 09:38:48 9 text/html Hypertension F/UReported by [...] sleeping and eating better. Glynn Hernández MD [address] [address], [place], [address], [facility] 12/19/2018 11:43:59 9 text/html ROS as noted [...] 50 lbs since 2011. Soledad Peck PA-C [address] [address], [place], [address], [facility] 01/03/2019 16:08:47
--- OUTSIDE RECORDS SUMMARY | 2025-07-11 07:09 | XMS_ITS | Encounter Summary ---
Author Organization Formerly [facility] Address [address] [place] [address] Care Team Providers Care Qa Specialist Name Role Phone Rufino Rajput MD Primary Care Provider [phone] Francisco J Galeana MD Unavailable Orion Rodriguez MD Unavailable [phone] Kelby Celaya MD Unavailable [phone] System, Provider Not In Unavailable Unavaila ble Encounter Details Date Type Department Care Team (Late st Contact Info) Description 04/16/2024 Scanned Document [facility] [place] [address] Orion Rodriguez MD [address] [place] [address] Social History Tobacco Use Types Packs/Day Years [...] on filedocumented in this encounter Care Teams Qa Specialist Relationship Specialty Start Date End Date Rufino Rajput MD [facility] [place], [place] PCP - General Internal Medicine 12/27/23 Francisco J Galeana MD [facility] [place], [place] Cardiology-Scan 01/06/24 Orion Rodriguez MD [address] [place] [address] Surgery, Orthopedic 01/10/24 Kelby Celaya MD [address] [email or web address] [address] [place] [address] Physician Nephrology 01/10/24 System, Provider Not In [address] [email or web address] [address] [place] [address] 01/10/24 documented as of this encounter
--- OUTSIDE RECORDS SUMMARY | 2025-07-11 07:09 | XMS_ITS | Clinical Summary ---
Author Organization [facility] Address [address] [place] [address] Phone Care Team Providers Care Piercing Mill Operator Name Role Phone Rufino Rajput MD Primary Care Provider [phone] Allergies Active Allergy Reactions Criticality Noted Date [...] 1 (one) time each day Active pancrelipase, Cty-Nhmk-Vogw, (CREON) 73865-[address]58 units capsule Take 1 capsule by mouth [...] Units under the skin every night Active sodium bicarbonate 650 MG tablet Take 1 tablet (650 mg total) by mouth in the morning and 1 tablet (650 mg total) at noon and 1 tablet (650 mg total) in the evening and 1 tablet (650 mg total) before bedtime. 120 tablet 11 03/05/20 25 2025 Active insulin aspart (NovoLOG) 100 UNIT/ML patient supplied pump Inject under the skin continuously Active NIFEdipine CC (ADALAT CC) 60 MG 24 hr tablet Take 60 mg by mouth 1 (one) time each day before breakfast Do not crush, chew, or split. Active hydrALAZINE 25 MG tabletIndicati ons:Essential hypertension,S tage 5 chronic kidney disease (HCC) Take 1 tablet (25 mg total) by mouth in the morning and 1 tablet (25 mg total) in the evening. 60 tablet 5 06/12/20 25 2025 Active calcitriol (ROCALTROL) 0.25 MCG capsule Take 1 capsule by mouth once daily 30 capsule 07/08/20 Active spironolactone (ALDACTONE) 25 MG tablet Take 1 tablet (25 mg total) by mouth 1 (one) time each day 90 tablet 3 07/20/20 24 2024 Discontinued(M ed List Maintenance) calcitriol (ROCALTROL) 0.25 MCG capsule Take 1 capsule by mouth once daily 30 capsule 06/09/20 25 2024 Discontinued Hospital, Clinic, or Other Facility Administered Medication Ordered Dose Route Frequency Start Date End Date Status Epoetin Cabrera-epbx solution 20,000 UnitsIndications:Anemia in chronic kidney disease 68477 Units IJ Once 06/26/2025 06/26/2025 E nded Active Problems Problem Noted Date Diagnosed Date Chronic metabolic acidosis 06/30/2025 Stage 5 chronic kidney disease 06/12/2025 Acquired hammer toe of right foot 04/29/2025 [...] 11/15/2013 Overview (04/24/2024): STORY: DOMINGO BURROWS RN [id number]/ANA PAULA IMPRESSION: BASED ON HOME MEASUREMENTS CONTROL [...] ( severe disability ) on ; initial [place]: 13 on 01/27/17 Glaucoma 09/04/2021 09/04/2021 H/O: [...] Mononeuritis 04/06/2021 04/06/2021 Pain of multiple joints 04/06/202103/25 Neuropathy due to diabetes mellitus 04/06/2021 04/06/2021 [...] Encounters Date Type Department Care Team Description 07/08/2025 Refill [facility] [address] [place] [address] Kelby Celaya MD 07/05/2025 Orders Only [facility] [address] [address] Karen Plascencia ARNP Stage 5 chronic kidney disease (HCC); Essential hypertension; Anemia in chronic kidney disease; Renal osteodystrophy 06/26/2025 9:15 AM EST Clinical Support [facility] [address] [address] Anemia in chronic kidney disease (Primary Dx) 06/12/2025 8:30 AM EST Office Visit [facility] [address] [address] Karen Plascencia ARNP Stage 5 chronic kidney disease (HCC) (Primary Dx); Essential hypertension; Anemia in chronic kidney disease; Renal osteodystrophy; Chronic metabolic acidosis 06/09/2025 Refill [facility] [address] [place] [address] Kelby Celaya MD 05/30/2025 2:15 PM EST Clinical Support [facility] [address] [address] Chronic kidney disease, stage 4 (severe) (HCC) (Primary Dx); Anemia in chronic kidney disease 05/15/2025 Orders Only [facility] [address] [address] Karen Plascencia ARNP 05/12/2025 Refill [facility] [address] [place] [address] Vic Bettencourt MD 04/29/2025 2:30 PM EDT Clinical Support [facility] [address] [place] [address] Chronic kidney disease, stage 4 (severe) (HCC) (Primary Dx); Anemia in chronic kidney disease 04/29/2025 2:00 PM EDT Office Visit [facility] [address] [place] [address] Kelby Celaya MD Chronic kidney disease, stage 4 (severe) (HCC) (Primary Dx); Anemia in chronic kidney disease; Type 2 diabetes mellitus with diabetic chronic kidney disease, 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) 04/21/2025 Orders Only [facility] [address] [phone] Karen Plascencia ARNP Stage 3b chronic kidney disease (HCC); Essential hypertension; Anemia in chronic kidney disease; Renal osteodystrophy 04/14/2025 Refill [facility] [address] [place] [address] Kelby Celaya MD from Last 3 Months [...] 0 Q uit: 07/25/2004 Smokeless Tobacco: Never Tobacco [...] Sign Reading Time Taken Comments Blood Pressure 140/62 06/26/2025 12:10 PM EST Pulse 76 06/12/2025 8:45 AM EST Temperature - - Respiratory Rate - - Oxygen Saturation 98% 06/12/2025 8:45 AM EST Inhaled Oxygen Concentration - - Weight 71.2 kg (157 lb) 06/12/2025 8:45 AM EST Height 182.9 cm (6') 08/11/2020 12:00 PM EST Body Mass Index 21.29 08/11/2020 12:00 PM EST Plan of Treatment Upcoming Encounters Date Type Department Care Team (Late st Contact Info) Description 07/11/2025 8:30 AM EST Office Visit [facility] [address] [phone] Karen Plascencia ARNP [address] [phone] Health Maintenance Due Date Last Done Comments Colorectal Cancer Screening: Annual FOBT 12/28/2004 Colorectal Cancer Screening: Colonoscopy 12/28/2004 Colorectal Cancer Screening: Sigmoidoscopy 12/28/2004 Pneumococcal Vaccine: 50+ Years (2 of 2 - PCV) 07/25/2014 07/25/2013, 07/06/2013, 04/26/2008 Diabetes: Ophthalmology Exam 01/11/2022 Diabetes: Pedal Pulse Checked 01/11/2022 Diabetes: Sensory Foot Exam 01/11/2022 Diabetes: Visual Foot Exam 01/11/2022 Diabetes: Hemoglobin A1C 04/12/2024 01/11/2024, 1203/2020 Pneumococcal Vaccine: Peds (0 to 5 Years) and At-Risk Patients (6 to 49 Years) Discontinued 07/25/2013, 07/06/2013, 04/26/2008 Hepatitis B Vaccine Aged Out 06/01/2021 No longe r eligible based on patient's age to complete this topic Influenza Vaccine Completed 04/02/2025, , 04/23/2024, Additional history exists Procedures Procedure Name Priority Date/Time Associated Diagnosis Comments PTH, INTACT Routine 06/19/2025 2:57 PM EST VITAMIN D 25 HYDROXY Routine 06/19/2025 2:57 PM EST URINE ALBUMIN / CREATININE RATIO Routine 06/19/2025 2:57 PM EST PROTEIN / CREATININE RATIO, URINE Routine 06/19/2025 2:57 PM EST CBC Routine 06/19/2025 2:57 PM EST RENAL FUNCTION PANEL Routine 06/19/2025 2:57 PM EST PROTEIN / CREATININE RATIO, URINE Routine 06/05/2025 12:08 PM EST Chronic kidney disease, stage 4 (severe) (HCC) Anemia in chronic kidney disease Type 2 diabetes mellitus with diabetic chronic kidney disease, 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) URINE ALBUMIN / CREATININE RATIO Routine 06/05/2025 12:08 PM EST Chronic kidney disease, stage 4 (severe) (HCC) Anemia in chronic kidney disease Type 2 diabetes mellitus with diabetic chronic kidney disease, 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) RENAL FUNCTION PANEL Routine 06/05/2025 12:08 PM EST Chronic kidney disease, stage 4 (severe) (HCC) Anemia in chronic kidney disease Type 2 diabetes mellitus with diabetic chronic kidney disease, 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) MAGNESIUM Routine 06/05/2025 12:08 PM EST Type 2 diabetes mellitus with diabetic chronic kidney disease (HCC) Renal osteodystrophy Chronic kidney disease, stage 4 (severe) (HCC) CBC Routine 06/05/2025 12:08 PM EST Type 2 diabetes mellitus with diabetic chronic kidney disease (HCC) Renal osteodystrophy Chronic kidney disease, stage 4 (severe) (HCC) PTH, INTACT Routine 06/05/2025 12:08 PM EST Type 2 diabetes mellitus with diabetic chronic kidney disease (HCC) Renal osteodystrophy Chronic kidney disease, stage 4 (severe) (HCC) POCT HEMOGLOBIN Routine 05/30/2025 12:19 PM EST Chronic kidney disease, stage 4 (severe) (HCC) Anemia in chronic kidney disease HEMATOLOGY COMMENTS Routine 04/24/2025 3 :14 PM [...] NOT USE Routine 04/24/2025 3:14 PM EDT BLOOD PANEL (HC) Routine 07/22/2020 12:0 0 AM EST from Last 3 Months or Most Recently Relevant to Health Maintenance Results * (ABNORMAL) Protein, Total, Random Urine w/Creatinine (Protein/Creat Ratio) (06/19/2025 2:57 PM EST) Only the most recent of3 resultswithin the time period is included. Creatinine, Ur 43.6 Not Estab. mg/dL [facility] Protein, Ur 26.1 Not Estab. mg/dL [facility] Urine Protein/Creati nine Ratio 599(H) 0 - 200 mg/g creat [facility] 06/19/2025 2:57 PM EST 06/19/2025 Karen Plascencia [facility] LAB URINE ORDERABLES Final Result [facility] [address] [place] [address] * (ABNORMAL) Urine Albumin / Creatinine Ratio (06/19/2025 2:57 PM EST) Only the most recent of3 resultswithin the time period is included. Albumin, Urine 93.8 Not Estab. ug/mL [facility] Albumin/Creatin ine Ratio 215(H) 0 - 29 mg/g creat [facility] Comment: Normal: 0 - 29 Moderately increased: 30 - 300 Severely increased: >300 06/19/2025 2:57 PM EST 06/19/2025 [facility] Plascencia [facility] LAB URINE ORDERABLES Final Result Performing Organization Address City/[facility]/ZIP Co de Phone Number [facility] [address] [place] [address] * Vitamin D 25 Hydroxy (06/19/2025 2:57 PM EST) Only the most recent of2 resultswithin the time period is included. Vitamin D, 25-OH, Total 34.7 30.0 - 100.0 ng/mL [facility] Comment: Vitamin D deficiency has been defined by the [place] of Medicine and an Endocrine Society practice guideline as a level of serum 25-OH vitamin D less than 20 ng/mL (1,2). The Endocrine Society went on to further define vitamin D insufficiency as a level between 21 and 29 ng/mL (2). 1. IOM ([place] of Medicine). 2010. Dietary reference intakes for calcium and D. [place]: The National Academies Press. 2. Ramirez MF, Gabe MEEK, Anahi LINDO, et al. Evaluation, treatment, and prevention of vitamin D deficiency: an Endocrine Society clinical practice guideline. JCEM. 2010; 96(7):1911-30. 06/19/2025 2:57 PM EST 06/19/2025 [facility] LAB BLOOD ORDERABLES Final Result Performing Organization Address City/[facility]/ZIP Co de Phone Number [facility] [address] [place] [address] * (ABNORMAL) CBC (06/19/2025 2:57 PM EST) Only the most recent of3 resultswithin the time period is included. WBC 7.6 3.4 - 10.8 x10E3/uL [facility] RBC 3.20(L) 4.14 - 5.80 x10E6/uL [facility] Hemoglobin 9.6(L) 13.0 - 17.7 g/dL [facility] Hematocrit 30.0(L) 37.5 - 51.0 % [facility] MCV 94 79 - 97 fL [facility] MCH 30.0 26.6 - 33.0 pg [facility] MCHC 32.0 31.5 - 35.7 g/dL [facility] RDW 13.9 11.6 - 15.4 % [facility] Platelets 124(L) 150 - 450 x10E3/uL [facility] 06/19/2025 2:57 PM EST 06/19/2025 [facility] LAB BLOOD ORDERABLES Final Result Performing Organization Address City/State/[facility] Co de Phone Number [facility] [address] [place] [address] * (ABNORMAL) PTH, Intact (06/19/2025 2:57 PM EST) Only the most recent of3 resultswithin the time period is included. PTH 122(H) 15 - 65 pg/mL [facility] 06/19/2025 2:57 PM EST 06/19/2025 [facility]OD [facility] Final Result [facility] [address], [address] [place] [address] * (ABNORMAL) Renal Function Panel (06/19/2025 2:57 PM EST) Only the most recent of3 resultswithin the time period is included. Sodium 135 134 - 144 mmol/L [facility] Potassium 4.4 3.5 - 5.2 mmol/L [facility] Chloride 102 96 - 106 mmol/L [facility] Glucose 229(H) 70 - 99 mg/dL [facility] BUN 75(H) 8 - 27 mg/dL [facility] Creatinine 5.71(H) 0.76 - 1.27 mg/dL [facility] eGFR CKD-EPI CR 2020 10(L) >59 mL/min/1.7 3 [facility] BUN/Creatinine Ratio 13 10 - 24 [facility] Bicarbonate (CO2) 16(L) 20 - 29 mmol/L [facility] Calcium 8.5(L) 8.6 - 10.2 mg/dL [facility] Phosphorus 7.7(H) 2.8 - 4.1 mg/dL [facility] Albumin 4.0 3.9 - 4.9 g/dL [facility] 06/19/2025 2:57 PM EST 06/19/2025 Karen Plascencia [facility] LAB BLOOD ORDERABLES Final Result [facility] [address], [address] [place] [address] * Magnesium (06/05/2025 12:08 PM EST) Only the most recent of2 resultswithin the time period is included. Pathologist [facility] Magnesium 2.1 1.6 - 2.3 mg/dL [facility] Blood Venous blood / Unknown 06/05/2025 12:08 PM EST 06/05/2025 Kelby Celaya MD LAB BLOOD ORDERABLES Final Re sult [facility] [address], [address] [place] [address] * POCT hemoglobin (05/30/2025 12:19 PM EST) [facility] Hemoglobin 8.9 Blood Capillary 05/30/2025 1 2:19 PM EST Kelby Celaya MD POINT OF CARE TEST ORDERABLES Final Result * Hematology Comments (04/24/2025 3:14 PM EDT) [facility] Comment: Note: [facility] Comment: CBC met reflex criteria for review of peripheral smear by medical laboratory professional. Automated results were confirmed by smear review. 04/24/2025 3:14 PM EDT 04/24/2025 Kelby Celaya MD LAB BLOOD ORDERABLES Final Re sult [facility] [address] [place] [address] * Microscopic Examination (04/24/2025 3:14 PM EDT) [facility] WBC, Urine None seen 0 - 5 /hpf [facility] RBC, Urine None seen 0 - 2 /hpf [facility] Squamous Epithelial, Urine None seen 0 - 10 /hpf [facility] Casts None seen None seen /lpf [facility] Bacteria, Urine None seen None seen/Few [facility] 04/24/2025 3:14 PM EDT 04/24/2025 Kelby Celaya MD LAB MICROBIOLOGY - GENERAL OR DERABLES Final Result Performing Organization Address [facility]/ZIP Co de Phone Number [facility] [address] [place] [address] * (ABNORMAL) Iron Panel (Fe, TIBC, TSAT) (04/24/2025 3:14 PM EDT) Pathologist [facility] TIBC 247(L) 250 - 450 ug/dL [facility] UIBC 130 111 - 343 ug/dL [facility] Iron 117 38 - 169 ug/dL [facility] Iron Saturation (TSat) 47 15 - 55 % [facility] Blood Venous blood / Unknown 04/24/2025 3:14 PM EDT 04/24/2025 Kelby Celaya MD LAB BLOOD ORDERABLES Final Re sult Performing Organization Address City/[facility]/ZIP Co de Phone Number [facility] [address] [place] [address] * (ABNORMAL) Urinalysis with microscopic (04/24/2025 3:14 PM EDT) Pathologist [facility] Specific [place], Urine 1.017 1.005 - 1.030 [facility] pH Urine 6.0 5.0 - 7.5 [facility] Color, Urine Yellow Yellow [facility] Appearance Urine Clear Clear [facility] WBC Esterase Urine Negative Negative [facility] Protein, Ur 1+(A) Negative/Tra ce [facility] [phone] Glucose, Ur 2+(A) Negative [facility] Ketones, Urine Negative Negative [facility] [phone] Blood Urine Negative Negative [facility] Bilirubin Urine Negative Negative [facility] Urobilinogen Urine 0.2 0.2 - 1.0 mg/dL [facility] Nitrite, Urine Negative Negative [facility] [phone] Microscopic Examination See below: [facility] Comment:Microscopic was ethan cated and was performed. Urine Urine specimen obtained by clean catch procedure / Unknown 04/24/2025 3:14 PM EDT 04/24/2025 us Kelby Celaya MD LAB URINE ORDERABLES Final Re sult [facility] [address] [place] [address] * (ABNORMAL) Blood Panel (07/22/2020 12:00 AM [...] mg/dl PVNMA 07/22/2020 us [facility] [id number] LICITED RESULTS Final Result PVNMA from Last 3 Months or Most Recently Relevant to Health Maintenance Insurance Member Subscriber Plan / Payer (Ef fective 2020-Present) Name:Quentin Lara Relation to Subscriber:Self Name:Quentin Lara Payer ID:Not on file Type:Not on file Address: [address] [phone] Medicare Medicare Care Teams Piercing Mill Operator Relationship Specialty Start Date End Date Rufino Rajput MD [address] [place] [address] [phone] PCP - General Internal Medicine 04/06/21
--- OUTSIDE RECORDS SUMMARY | 2025-07-11 07:09 | XMS_ITS | Encounter Summary ---
Author Organization [facility] Address [address] [place] [address] Care Team Providers Care Bandsaw Operator Name Role Phone Rufino Rajput MD Primary Care Provider [phone] Francisco J Galeana MD Unavailable Orion Rodriguez MD Unavailable [phone] Kelby Celaya MD Unavailable [phone] System, Provider Not In Unavailable Unavaila ble Encounter Details Date Type Department Care Team (Late st Contact Info) Description 04/18/2024 Scanned Document [facility] [address] [place] [address] Dee Zhong [address] [facility] [address] [place] [address] Social History Tobacco Use Types Packs/Day Years [...] on filedocumented in this encounter Care Teams Bandsaw Operator Relationship Specialty Start Date End Date Rufino Rajput MD [facility] [place], [place] PCP - General Internal Medicine 12/27/23 Francisco J Galeana MD [facility] [place], [place] Cardiology-Scan 01/06/24 Orion Rodriguez MD [address] [place] [address] Surgery, Orthopedic 01/10/24 Kelby Celaya MD [address] [facility] [address] [place] [address] Physician Nephrology 01/10/24 System, Provider Not In [address] [facility] [address] [place] [address] 01/10/24 documented as of this encounter
--- OUTSIDE RECORDS SUMMARY | 2025-07-11 07:09 | XMS_ITS | Clinical Summary ---
Author Organization [facility] Address [address] [place] [address] Phone Care Team Providers Care Brand Sales Manager Name Role Phone Rufino Rajput MD Primary Care Provider [phone] Allergies Active Allergy Reactions Criticality Noted Date Comments Codeine 07/21/2020 Medications calcitrioL (ROCALTROL) 0.25 mcg capsule Take 1 Capsule by mouth every other day. Active insulin aspart (NovoLOG) 100 unit/mL injection Inject as directed. Sliding scale Active insulin detemir (LEVEMIR) 100 unit/mL injection Inject 17 Units into the skin at bedtime. 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 Aneurysm of ascending aorta 07/21/2020 Overview (04/24/2024): [...] Assessment & Plan: Suggest him to call [place] office to get a new primary care [...] Encounters Date Type Department Care Team Description 06/27/2025 Telephone [facility] [address] [place] [address] Provider, Not In System from Last 3 Months Immunizations Immunization Administration [...] Smoking Tobacco: Former Cigarettes 0 Q uit: 07/25/2005 Smokeless Tobacco: Never Tobacco Cessation:Counseling Given: Not Answered Alcohol Use Standard Drinks/Week Comments No 0 (1 standard drink = 0.6 oz pur e alcohol) Sex and Gender Information Value Date Recorded Sex Assigned at Male 01/15/2025 2:58 PM EDT Legal Sex Male 9:23 AM EST Gender Identity Male 01/15/2025 2:58 PM EDT Sexual Orientation Straight 01/15/2025 2: 58 PM EDT Last Filed Vital Signs Vital [...] Description 07/19/2025 9:30 AM EST Office Visit [facility] Hematology Oncology [address] [place] [id number] Radha Lambert PA [address] [place] [address] Health Maintenance Due Date Last Done Comments [...] 3-dose series) 03/06/2025 01/09/2025, 06/01/2021 COVID-19 Vaccine ( season) 2025 04/23/2024, 11/12/2022, 04/28/2022, Additional history exists Influenza Vaccine (#1) 2025 , 04/23/2024, 04/25/2023, Additional history exists Diabetes: Annual GFR (Glomerular Filtration Rate) 01/21/2026 01/21/2025, 07/30/2024, 07/16/2024, Additional history exists Hypertension/CHF/CAD Annual BMP Blood Test 01/21/2026 01/21/2025, 07/30/2024, 07/16/2024, Additional history exists Diabetes: Annual Urine Albumin-Creatinine Ratio (uACR) 04/24/2026 04/24/2025, 03/05/2025, 01/24/2025, Additional history exists DTaP,Tdap,and Td Vaccines (3 [...] LAB CHEMISTRY METHOD 07/30/2024 4:32 PM EST [facility] Triglycerides 140 0 - 150 mg/dL LAB CHEMISTRY METHOD 07/30/2024 4:32 PM [facility] HDL 68 >=40 mg/dL LAB CHEMISTRY METHOD 07/30/2024 4:32 PM [facility] LDL Calculated 31 0 - 100 mg/dL LAB CHEMISTRY METHOD 07/30/2024 4:32 PM EST [facility] VLDL Cholesterol Rick 28 mg/dL LAB CHEMISTRY METHOD 07/30/2024 4:32 PM [facility] Non HDL Chol. (LDL+VLDL) 59 <145 mg/dL LAB CHEMISTRY METHOD 07/30/2024 4:32 PM [facility] Chol/HDL Ratio 1.9 0.0 - 4.4 LAB CHEMISTRY METHOD 07/30/2024 4:32 PM [facility] Blood Venous blood specimen / Unknown Venipuncture / Unknown 07/30/2024 9:57 AM EST 07/30/2024 9:57 AM EST us Francisco J Galeana MD LAB BLOOD ORDERABLES Final Resul t [facility] [address] [place] [address], * (ABNORMAL) Comprehensive metabolic panel (07/30/2024 9:57 AM EST) Sodium 138 133 - 145 mmol/L LAB CHEMISTRY METHOD 07/30/2024 4:48 PM [facility] Comment:Results verified by repeat testing Potassium 4.5 3.5 - 5.5 mmol/L LAB CHEMISTRY METHOD 07/30/2024 4:48 PM [facility] Chloride 107 96 - 110 mmol/L LAB CHEMISTRY METHOD 07/30/2024 4:48 PM [facility] CO2 27 21 - 32 mmol/L LAB CHEMISTRY METHOD 07/30/2024 4:48 PM [facility] Anion Gap 4 3 - 11 LAB CHEMISTRY METHOD 07/30/2024 4:48 PM [facility] Glucose 68(L) 70 - 100 mg/dL LAB CHEMISTRY METHOD 07/30/2024 4:48 PM [facility] BUN 28(H) 5 - 25 mg/dL LAB CHEMISTRY METHOD 07/30/2024 4:48 PM [facility] Creatinine 2.44(H) 0.70 - 1.30 mg/dL LAB CHEMISTRY METHOD 07/30/2024 4:48 PM [facility] eGFR 28(L) >=60 mL/min/1. 73m2 LAB CHEMISTRY METHOD 07/30/2024 4:48 PM [facility] Comment:Calculation based on the Chronic Kidney Disease Epidemiology Collaboration (CKD-EPI) equation refit without adjustment for race. BUN/Creatinine Ratio 11.5 LAB CHEMISTRY METHOD 07/30/2024 4:48 PM [facility] Calcium 9.8 8.5 - 10.5 mg/dL LAB CHEMISTRY METHOD 07/30/2024 4:48 PM [facility] AST (SGOT) 28 10 - 42 unit/L LAB CHEMISTRY METHOD 07/30/2024 4:48 PM [facility] ALT (SGPT) 43 10 - 60 unit/L LAB CHEMISTRY METHOD 07/30/2024 4:48 PM [facility] Alkaline Phosphatase 84 42 - 121 unit/L LAB CHEMISTRY METHOD 07/30/2024 4:48 PM [facility] Total Protein 7.0 6.0 - 8.0 g/dL LAB CHEMISTRY METHOD 07/30/2024 4:48 PM [facility] Albumin 3.9 3.2 - 5.0 g/dL LAB CHEMISTRY METHOD 07/30/2024 4:48 PM EST [facility] Total Bilirubin 0.3 0.0 - 1.4 mg/dL LAB CHEMISTRY METHOD 07/30/2024 4:48 PM EST [facility] Blood Venous blood specimen / Unknown Venipuncture / Unknown 07/30/2024 9:57 AM EST 07/30/2024 9:57 AM EST Radha BOCANEGRA LAB BLOOD ORDERABLES Final Re sult [facility] [address] [place] [address], * Hemoglobin A1c (01/11/2024) Hemoglobin A1C 0.0 % Comment:No Interpretation Blood Venous blood specimen / Unknown Historical Provider MD LAB BLOOD ORDERABLES Gertrude l Result * HM Urine Albumin Creatinine Ratio (01/10/2024) HM Urine Albumin Creatinine Ratio Abstracted Historical Provider HEALTH MAINTENANCE Final Result from Last 3 Months or Most Recently Relevant to Health Maintenance Insurance MEDICARE [facility] Advance Directives Documents on File Type Date Recorded Patient Piece Dyeing 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
--- OUTSIDE RECORDS SUMMARY | 2025-07-11 07:09 | XMS_ITS | Encounter Summary ---
Author Organization [facility] Address [address] [address] Phone Care Team Providers Care Director Adult Name Role Phone Rufino Rajput MD Primary Care Provider [phone] Encounter Details Date Type Department Care Team (Late Contact Info) Description 07/05/2025 Orders Only [facility] [address] [address] Karen Plascencia ARNP [address] [address] Stage 5 chronic kidney disease (HCC); Essential hypertension; Anemia in chronic kidney disease; Renal osteodystrophy Social History Tobacco Use Types Packs/Day Years [...] [facility] [address] [address] Karen Plascencia ARNP [address] [address] documented as of this encounter Procedures Procedure Name Priority Date/Time Associated Diagnosis Comments PROTEIN / CREATININE RATIO, URINE Routine 06/19/2025 2:57 PM EST URINE ALBUMIN / CREATININE RATIO Routine 06/19/2025 2:57 PM EST VITAMIN D 25 HYDROXY Routine 06/19/2025 2:57 PM EST CBC Routine 06/19/2025 2:57 PM EST PTH, INTACT Routine 06/19/2025 2:57 PM EST RENAL FUNCTION PANEL Routine 06/19/2025 2:57 PM EST documented in this encounter Results * (ABNORMAL) PTH, Intact (06/19/2025 2:57 PM EST) PTH 122(H) 15 - 65 pg/mL [facility] [place] 06/19/2025 2:57 PM EST 06/19/2025 Karen Temo [facility] BLOOD ORDERABLES Final Result [facility] [place] [address], [address] [place] [address] * Vitamin D 25 Hydroxy (06/19/2025 2:57 PM EST) Vitamin D, 25-OH, Total 34.7 30.0 - 100.0 ng/mL [facility] Comment: Vitamin D deficiency has been defined by the [place] of Medicine and an Endocrine Society practice guideline as a level of serum 25-OH vitamin D less than 20 ng/mL (1,2). The Endocrine Society went on to further define vitamin D insufficiency as a level between 21 and 29 ng/mL (2). 1. IOM ([place] of Medicine). 2010. Dietary reference intakes for calcium and D. [place]: The National Academies Press. 2. Ramirez MF, Gabe MEEK, Anahi LINDO, et al. Evaluation, treatment, and prevention of vitamin D deficiency: an Endocrine Society clinical practice guideline. JCEM. 2010; 96(7):1911-30. 06/19/2025 2:57 PM EST 06/19/2025 [facility] LAB BLOOD ORDERABLES Final Result Performing Organization Address City/[facility]/ZIP Co de Phone Number [facility] [place] [address] [place] [address] * (ABNORMAL) Urine Albumin / Creatinine Ratio (06/19/2025 2:57 PM EST) Albumin, Urine 93.8 Not Estab. ug/mL [facility] Albumin/Creatin ine Ratio 215(H) 0 - 29 mg/g creat [facility] Comment: Normal: 0 - 29 Moderately increased: 30 - 300 Severely increased: >300 06/19/2025 2:57 PM EST 06/19/2025 [facility] LAB URINE ORDERABLES Final Result Performing Organization Address City/[facility]/ZIP Co de Phone Number [facility] [place] [address] [place] [phone] * (ABNORMAL) Protein, Total, Random Urine w/Creatinine (Protein/Creat Ratio) (06/19/2025 2:57 PM EST) Creatinine, Ur 43.6 Not Estab. mg/dL [facility] Protein, Ur 26.1 Not Estab. mg/dL [facility] Urine Protein/Creati nine Ratio 599(H) 0 - 200 mg/g creat [facility] 06/19/2025 2:57 PM EST 06/19/2025 Karen Plascencia [facility] URINE ORDERABLES Final Result Performing Organization Address City/[facility]/ZIP Co de Phone Number [facility] [address] [place] [address] * (ABNORMAL) CBC (06/19/2025 2:57 PM EST) WBC 7.6 3.4 - 10.8 x10E3/uL [facility] RBC 3.20(L) 4.14 - 5.80 x10E6/uL [facility] Hemoglobin 9.6(L) 13.0 - 17.7 g/dL [facility] Hematocrit 30.0(L) 37.5 - 51.0 % [facility] MCV 94 79 - 97 fL [facility] MCH 30.0 26.6 - 33.0 pg [facility] MCHC 32.0 31.5 - 35.7 g/dL [facility] RDW 13.9 11.6 - 15.4 % [facility] Platelets 124(L) 150 - 450 x10E3/uL [facility] 06/19/2025 2:57 PM EST 06/19/2025 Karen Plascencia [facility] LAB BLOOD ORDERABLES Final Result [facility] [address] [place] [address] * (ABNORMAL) Renal Function Panel (06/19/2025 2:57 PM EST) Sodium 135 134 - 144 mmol/L [facility] [place] Potassium 4.4 3.5 - 5.2 mmol/L [facility] [place] Chloride 102 96 - 106 mmol/L [facility] [place] Glucose 229(H) 70 - 99 mg/dL [facility] [place] BUN 75(H) 8 - 27 mg/dL [facility] [place] Creatinine 5.71(H) 0.76 - 1.27 mg/dL [facility] [place] eGFR CKD-EPI CR 2020 10(L) >59 mL/min/1.7 3 [facility] [place] BUN/Creatinine Ratio 13 10 - 24 [facility] [place] Bicarbonate (CO2) 16(L) 20 - 29 mmol/L [facility] [place] Calcium 8.5(L) 8.6 - 10.2 mg/dL [facility] [place] Phosphorus 7.7(H) 2.8 - 4.1 mg/dL [facility] [place] Albumin 4.0 3.9 - 4.9 g/dL [facility] [place] 06/19/2025 2:57 PM EST 06/19/2025 Karen Plascencia [facility] BLOOD ORDERABLES Final Result [facility] [place] [address], [address] [place] [address] documented in this encounter Visit Diagnoses Diagnosis Stage 5 chronic kidney disease (HCC) Essential hypertension Anemia in chronic kidney disease Renal osteodystrophy documented in this encounter Care Teams Director Adult Relationship Specialty Start Date End Date Rufino Rajput MD [address] [place] [address] PCP - General Internal Medicine 04/06/21 documented as of this encounter
--- OUTSIDE RECORDS SUMMARY | 2025-07-11 07:09 | XMS_ITS | Encounter Summary ---
Author Organization [facility] Address [address] [place] [address] Care Team Providers Care Plastic Finisher Name Role Phone Rufino Rajput MD Primary Care Provider [phone] Francisco J Galeana MD Unavailable Orion Rodriguez MD Unavailable [phone] Kelby Celaya MD Unavailable [phone] System, Provider Not In Unavailable Unavaila ble Encounter Details Date Type Department Care Team (Late st Contact Info) Description 01/18/2024 Scanned Document [facility] [address] [place] [address] Dee Zhong [address] [facility] [address] [place] [address] Social History Tobacco Use Types Packs/Day Years [...] on filedocumented in this encounter Care Teams Plastic Finisher Relationship Specialty Start Date End Date Rufino Rajput MD [facility] [place], [place] PCP - General Internal Medicine 12/27/23 Francisco J Galeana MD [facility] [place], [place] Cardiology-Scan 01/06/24 Orion Rodriguez MD [address] [place] [address] Surgery, Orthopedic 01/10/24 Kelby Celaya MD [address] [place] [address] Physician Nephrology 01/10/24 System, Provider Not In [address] [place] [address] 01/10/24 documented as of this encounter
--- OUTSIDE RECORDS SUMMARY | 2025-07-11 07:09 | XMS_ITS | Patient Health Record ---
Author Organization [facility] Address [address] [facility] [place] [address] Care Team Providers Care Relocation Director Name Role Phone Regulo CONKLIN, [facility] Primary Care Provider Ni Almanza Unavailable [phone] Allergies Allergen (clinical drug ingredient) Drug/Non Drug [...] Duration) Notes Start Date End Date Status Omeprazole 40 MG 1 capsule 30 minutes before morning meal Orally Once a day; Duration: 30 day(s) Not-Taking Basaglar KwikPen Not -Taking Sodium Bicarbonate 650 MG as directed Orally Active FreeStyle Lite Test In Vitro; Duration: 90 Not-Taking Amoxicillin Active Tamsulosin HCl 0.4 MG 1 capsule Orally Once a day; Duration: 30 day(s) Not-Taking Pregabalin 100 MG 1 capsule Orally Three times a day Active Insulin Cartridge 3ML Not-Taking Calcitriol 0.25 MCG 1 capsule Orally Three times a Week Active FreeStyle Lancets ; Duration: 90 Not-Taking Levemir Active Extra Depth Diabetic Shoes with 3 Pair Custom heat-molded multi-density innersoles for 1 year Dx: 02/25/2021 Not-Taking NovoLOG sliding scale Active Metoprolol Succinate ER 50 MG 1 tablet Orally Once a day Not-Taking Physical Therapy . . . 2-3x/week; Duration: 3-4 weeks Not-Taking Lactulose Not-Taking Zolpidem Tartrate No t-Taking Physical Therapy . . . 2-3x/week; Duration: 3-4 weeks 03/01/2014 Not-Taking hydrALAZINE HCl 25 MG 1 tablet with food Orally Twice a day Active Furosemide 40 MG 1 tablet Orally Once a day; Duration: 30 day(s) Not-Taking Doxycycline Hyclate Active Multivitamins Orally Active Gabapentin 600 MG Oral; Duration: 90 Not-Taking glyBURIDE 5 MG Oral; Duration: 30 Not-Taking Extra Depth Orthopedic Shoes (1 Pair) with Customized Heat Molded Multidensity Innersoles (3 Pair) as directed Dx: NIDDM/Polyneuropathy (E11.42), Hammertoe Foot Deformity (M20.41,M20.42), Preulcerative Skin Lesion(s) (L85.1 07/12/2024 Active Ketostix In Vitro; Duration: 50 Not-Taking Extra Depth Diabetic Shoes with 3 Pair Custom heat-molded multi-density innersoles for 1 year Dx: Active glipiZIDE Not-Taking Zenpep Not-Taking Lisinopril 20 MG Oral; Duration: 90 Not-Taking Vitamin C Not-Taking Lyrica 50 MG 1 capsule Orally Three times a day Not-Taking Doxycycline Monohydrate 100 MG 1 capsule Orally Twice a day; Duration: 10 days 07/10/2025 Active Enulose Not-Taking Nitrostat 0.4 MG Sublingual No t-Taking Vitamin B-1 100 MG 1 tablet Orally Once a day; Duration: 30 day(s) Not-Taking metFORMIN HCl 1000 MG Oral; Duration: 30 Not-Taking Ferrous Sulfate 325 (65 Fe) MG 1 tablet Orally Once a day Not-Taking Spironolactone 25 MG 1 tablet Orally; Duration: 30 day(s) Active Folic Acid 1 MG Oral; Duration: 90 Not-Taking Creon 6 a day Active Antibiotic Not-Takin g Atorvastatin Calcium 20 MG 1 tablet Orally Once a day Active Aspirin 81 MG 1 tablet Orally Once a day Active Immunizations Vaccine Route Administration Date Status Comme nts Influenza Unknown 03/25/2020 Administered Influenza Unknown 04/25/2023 Administered Influenza Unknown 04/24/2024 Administered Influenza Unknown 03/28/2025 Administered COVID-19 Pfizer BioNTech Vaccine Unknown 04/25/2021 [...] Problem Acquired hammer toe of right foot (406604207929470 5) Other hammer toe(s) (acquired), right foot (M20.41) Active confirmed Response to treatment, Improvement Problem Acquired hammer toe of left foot (667767800717831 3) Other hammer toe(s) (acquired), left foot (M20.42) Active confirmed Response to treatment, Improvement Problem Polyneuropathy due to type 2 diabetes mellitus (072839384) Type 2 diabetes mellitus with diabetic polyneuropathy (E11.42) Active confirmed Problem 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) Active confirmed Response to treatment- Improvement Problem Neuropathic ulcer of right foot (disorder) (585391865777767 02) Neuropathic ulcer of right foot, 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) Active confirmed Response to treatment Vital Signs Blood pressure diastolic 65 mm Hg 07/10/2025 Height 7il53ao in 07/10/2025 Blood pressure systolic 125 mm Hg 07/10/2025 Weight 165 lbs 07/10/2025 BMI 23.01 kg/m2 07/10/2025 Procedures Procedure Date Ordered Date Performed Result Body Sit e 56444-GRYYURY NAIL, 6 OR MORE 07/12/2024 N/A 37114-DRSN SKIN LESIONS, OVER 4 07/12/2024 N/A 46207-YGQOYRX NAIL, 6 OR MORE 11/02/2024 N/A 60293-EEMZ SKIN LESIONS, OVER 4 11/02/2024 N/A 80758-EQLJOCU NAIL, 6 OR MORE 02/20/2025 N/A 61463-QNYZAXO SKIN/TISSUE 02/20/2025 N/A 27241-MFEV SKIN LESIONS, OVER 4 02/20/2025 N/A 74634-QZFNRHL SKIN/TISSUE 03/07/2025 N/A 31400-CLEZMQN NAIL, 6 OR MORE 07/04/2025 N/A 76005-LABNWFO SKIN/TISSUE 07/04/2025 N/A 36091-POJB SKIN LESIONS, OVER 4 07/04/2025 N/A 20349 - Punch Biopsy of Skin Lesion 07/04/2025 N/A 44055 - Punch Biopsy of Skin Additional Lesions 07/04/2025 N/A Encounters Encounter Location Date Provider Diagnosis [address] [address] 07/10/2025 Ni Leone Cellulitis of foot, left L03.[address] [address] 07/12/2024 Ni Leone Other hammer toe(s) (acquired), right foot M20.41 ; Other hammer toe(s) (acquired), left foot M20.42 ; Type 2 diabetes mellitus with diabetic polyneuropathy E11.42 and Tinea unguium B35.[address] [address] 11/02/2024 Nicheryl Leone Type 2 diabetes mellitus with diabetic polyneuropathy E11.42 ; Neuropathic ulcer of right foot, limited to breakdown of skin L97.511 and Tinea unguium B35.[address] [address] 11/16/2024 Ni Leone Neuropathic ulcer of right foot, limited to breakdown of skin L97.[address] [address] 02/20/2025 Ni Leone Type 2 diabetes mellitus with diabetic polyneuropathy E11.42 ; Neuropathic ulcer of right foot, limited to breakdown of skin L97.511 and Tinea unguium B35.[address] [address] 03/07/2025 Ni Leone Neuropathic ulcer of right foot with fat layer exposed L97.[address] [address] 07/04/2025 Ni Leone Type 2 diabetes mellitus with diabetic polyneuropathy E11.42 ; Neuropathic ulcer of right foot, limited to breakdown of skin L97.511 ; Tinea unguium B35.1 and Disorder of the skin and subcutaneous tissue, unspecified L98.[address] [address] 07/04/2025 Ni Leone [address] [address] 07/05/2025 Ni Leone [address] [address] 07/10/2025 Ni Leone [address] [address] 03/07/2025 Ni Leone [address] [address] 06/04/2025 Ni Leone Assessments Encounter Date Diagnosis (ICD [...] CARE INSTRUCTIONS. pdf (WOUND CARE INSTRUCTIONS. pdf) 07/04/2025 Type 2 diabetes mellitus with diabetic polyneuropathy (ICD-10 - E11.42) 11/02/2024 Type 2 diabetes mellitus with diabetic polyneuropathy (ICD-10 - E11.42) 07/04/2025 Neuropathic ulcer of right foot, limited to breakdown of skin (ICD-10 - L97.511) Patient Educated with: WOUND CARE INSTRUCTIONS. pdf (WOUND CARE INSTRUCTIONS. pdf) 07/10/2025 Cellulitis of foot, left (ICD-10 - L03.116) 11/02/2024 Tinea unguium (ICD-10 - B35.1) 07/04/2025 Tinea unguium (ICD-10 - B35.1) 02/20/2025 Tinea unguium (ICD-10 - B35.1) 07/12/2024 Type 2 diabetes mellitus with diabetic polyneuropathy (ICD-10 - E11.42) 07/12/2024 Tinea unguium (ICD-10 - B35.1) 07/04/2025 Disorder of the skin and subcutaneous tissue, unspecified (ICD-10 - L98.9) 11/02/2024 Other Patient Educated with: DIABETIC FOOT CARE INSTRUCTIONS. pdf (DIABETIC FOOT CARE INSTRUCTIONS. pdf) 02/20/2025 Other Patient Educated with: DIABETIC FOOT CARE INSTRUCTIONS. pdf (DIABETIC FOOT CARE INSTRUCTIONS. pdf) 07/04/2025 Other Patient Educated with: DIABETIC FOOT CARE INSTRUCTIONS. pdf (DIABETIC FOOT CARE INSTRUCTIONS. pdf) Plan Of Treatment Pending Test Test Name Order Date X ray : Foot, left 2V 01/08/2014 X ray : Foot, right 2V 01/08/2014 X ray : Foot, left 3V 02/25/2021 X ray : Foot, right 3V 02/25/2021 X ray : Foot, right 3V 12/31/2022 52659-CXWTJJH NAIL, 6 OR MORE 07/12/2024 21141-YHNHUBI NAIL, 6 OR MORE 11/02/2024 98882-CNLLPRI NAIL, 6 OR MORE 02/20/2025 17476-ILLPXHF NAIL, 6 OR MORE 07/04/2025 38483-GISNYCA SKIN/TISSUE 07/04/2025 22044-ULOWPJN SKIN/TISSUE 02/20/2025 94981-ILXIMIU SKIN/TISSUE 03/07/2025 79486-RBQFDYL SKIN/TISSUE 10/07/2023 94912-EERMUMC SKIN/TISSUE 04/30/2021 39495-NZDQWPT SKIN/TISSUE 08/03/2021 19055-MCIJ SKIN LESIONS, OVER 4 07/12/20 24 15486-YHIZ SKIN LESIONS, OVER 4 02/21/20 25 29723-YVEP SKIN LESIONS, OVER 4 11/03/19 25 22987-JTQI SKIN LESIONS, OVER 4 07/04/20 25 99299-OBHM SKIN LESIONS, 2 TO 4 08/03/19 22 71975-ETDN SKIN LESIONS, 2 TO 4 04/30/20 21 95810-FTPP SKIN LESIONS, 2 TO 4 02/26/20 21 28823-QURAHZXU OF HEMATOMA/FLUID 022 75201 - Punch Biopsy of Skin Lesion 06/24 82468 - Punch Biopsy of Skin Additional Lesions 07/04/2025 Next Appt Details Provider Name:Ni Lee perla, 07/15/2025 03:00:00 PM, [address] [place], [address], Insurance Providers Payer Name Payer Address Payer Phone Subscriber Number Group Number Insured Name Patient Relationship to Insured Coverage Start Date Coverage End Date Medicare National [employer] [address] [place] [address] [id number] Qu[address] Lara Self - patient is the insured [facility] [address] [facility] [place] [id number] [phone] [id number] Quentin Lara Self - patient is [...] ial angioplasty left rotator cuff tear repair 2012 Heart stent 2000, 2011 open heart /triple [...]
--- OUTSIDE RECORDS SUMMARY | 2025-07-11 07:09 | XMS_ITS | Clinical Summary ---
Author Organization [facility] Prior to 12/22/24 Address [address] [place] [address] Care Team Providers Care Ball Sorter Name Role Phone Rufino Rajput MD Primary Care Provider [phone] Allergies Active Allergy Reactions Criticality Noted Date [...] total) by mouth daily. 0 Active pancrelipase, Suu-Yfnp-Trej, (CREON) [address] units CPEP Take 1 capsule (24,000 units [...] age to complete this topic Care Teams Ball Sorter Relationship Specialty Start Date End Date Rufino Rajput MD [address] [facility] [place] [id number] PCP - General Internal Medicine 01/13/24
--- OUTSIDE RECORDS SUMMARY | 2025-07-11 07:09 | XMS_ITS | Encounter Summary ---
Author Organization [facility] Address [address] [place] [address] Care Team Providers Care Staking Engineer Name Role Phone Rufino Rajput MD Primary Care Provider [phone] Francisco J Galeana MD Unavailable Orion Rodriguez MD Unavailable [phone] Kelby Celaya MD Unavailable [phone] System, Provider Not In Unavailable Unavaila ble Encounter Details Date Type Department Care Team (Late st Contact Info) Description 01/17/2024 Scanned Document [facility] [address] [place] [address] Dee Zhong [address] [facility] [address] [place] [address] Social History Tobacco Use Types Packs/Day Years [...] on filedocumented in this encounter Care Teams Staking Engineer Relationship Specialty Start Date End Date Rufino Rajput MD [facility] [place], [place] PCP - General Internal Medicine 12/27/23 Francisco J Galeana MD [facility] [place] Cardiology-Scan 01/06/24 Orion Rodriguez MD [address] [place] [address] Surgery, Orthopedic 01/10/24 Kelby Celaya MD [address] [place] [id number] Physician Nephrology 01/10/24 System, Provider Not In [address] [place] [address] 01/10/24 documented as of this encounter
[2025-07-11 07:14] VITALS: BP 156/68; PULSE 69; BMI 24.3
--- NOTE | 2025-07-11 07:14 | MHC.OFFVIS ---
Vital Signs 07/11/25 07:14 Height 5 ft 11 in Weight 174 lb 2.643 oz BMI 24.3 BP 156/68 H Blood Pressure Location Lt brachial Position Sitting Pulse 69 Intake Visit Reasons: 4 month follow up Intake Note: Patient follow up for lab, US and Colonoscopy results. Patient cc: States that he is feeling okay - he states he has GI concerns. 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 Allergies codeine Allergy (Severe, Verified 07/11/25 07:20) SOB, diaphoretic Medication List - Last Reconciled 07/11/25 by Elisha Estevez MD aspirin 81 mg PO BEDTIME atorvastatin 20 mg PO DAILY 90 days blood-glucose meter As directed calcitriol 0.25 mcg PO DAILY hydralazine 25 mg PO BID insulin aspart (niacinamide) 100 unit/mL (3 mL) (Fiasp FlexTouch U-100 Insulin) 3 - 8 units subcut TID insulin glargine (Lantus Solostar U-100 Insulin) 14 units subcut QAM lancets As directed lscqpc-fblkezrr-kycyitc (pork) 24,000-76,000 -120,000 unit (Creon) 2 caps PO TID 90 days multivitamin 1 tab PO DAILY nifedipine ER 30 mg PO DAILY pen needle, diabetic B.i.d. pregabalin 150 mg PO TID 30 days thiamine HCl (vitamin B1) 100 mg PO DAILY HPI HPI 4 month follow up: Details: GI clinic visit for this 69 YM? with CHF, CAD, IDDM, htn, kidney stones, CKD, seen for FU of liver disease, chronic calcific pancreatitis and colon cancer screening. Followed by Dr Centeno at [facility].? Saw another GI physician in 2019 at [facility] who has retired also. Renal:? Dr Chan Pt was hospitalized at [facility] 05/29/21 to 06/10/21 with cirrhosis, ascites, SBP,? sepsis, anemia, nontraumatic psoas hematoma, Malnutrition, anasarca, pancreatic insufficiency, thrombocytopenia, coagulopathy, alcohol use disorder, coronary artery disease and confusion associated with infection.? Hospital course was complicated by type 2 hepatorenal disease which was treated with midodrine, octreotide, albumin infusions Creatinine improved to 1.4 and octreotide was discontinued. Discharge summary from hospitalization was reviewed in scanned into the patient's medical record. TODAY'S VISIT: Diagnosed with kidney disease and sees Dr Celaya and being listed for renal transplant and anticipate starting dialysis over the next 6 to 12 months. Getting erythropoietin injections for anemia Diarrhea has improved after he increased the dose of Creon - denies nocturnal diarrhea Notes increased diarrhea when he takes fatty foods. PAST VISIT: Improved control of blood sugars. Has not noted any problems with acid reflux. Sometimes its hard to swallow. Has bad teeth and not able to chew well Renal function is worsening (Stage 4) Spironolactone was discontinued by Nephrology and notes increase leg edema Denies an increase in abd distension Abd US results reviewed Has diarrhea at night time and his to get up to use the rest room - atleast 2-3 times a day. He was on antibiotics after foot surgery and diarrhea was worse. Diarrhea cleared up within a week of stopping antibiotics. [place] [facility] [place] they may change his insulin on his FU visit. Had surgery in January on his right foot and Mar on the left foot. Treated with antibiotics prior to surgery on the left foot. Antibiotics were stopped 2 weeks ago and diarrhea is getting better. Has an accidents when he wakes up in the am. Bms are associated with urgency - 3 - 5 loose non-bloody BMs a day Pt states he had lab and stool tests at [facility] Swallowing is good. Noted a slight sore throat for a few days after EGD Denies any change in dysphagia Biopsy results reviewed Patient cc: swallowing problems, and between diarrhea and constipation. [facility] blister on his legs. Accompanied by his GF Has wounds in the feet. Had a vitrectomy recently Appetite is good and he has been gaining weight Has diarrhea alternating with constipation Intermittent dysphagia associated with intake of solids - with every meal for the past 6 months, Denies heartburn Has a good appetite and wt gain of 40 lbs over the past year. Continues to have a abd cramps with a lot of gas and more bouts of diarrhea. Unable to go for a few days and then has diarrhea. Takes peptobismol when he has diarrhea. Can be on the toilet for 1/2 an hour. Has oatmeal for breakfast, fruit or muffin for lunch. [place] [facility] [place] report was requested Colonoscopy was attempted and was unsuccessful due to poor prep. Pt reports bouts of constipation and diarrhea - mostly diarrhea. Denies black stool or rectal bleeding Denies abdominal pain and appetite is better Pregabilin is helping with the appetite. Notes mild lower extremity edema Takes Novolin 17 units in the am and uses regular insulin on a sliding scale the rest of the day. No ETOH in 15 to 16 months Pt was diagnosed with alcoholic cirrhosis a few yrs ago. DM diagnosed 5-6 yrs ago. Complains of worsening upper abdominal pain x 1 month. Pain is constant, 8/10 and radiates to the back. Denies change in pain with eating. Denies nausea, vomiting, dairrhea or constipation.. Takes Lactulose two times a day and has 2 -3 soft BMs daily. Stools are very light Appetite has been good and he is trying to eat three times a day or takes a protein drink. Started loosing wt for the past 6 months Baseline wt is 145 lbs. Weighed 126 lbs on discharge from Rehab and now weighs 110 lbs. Feels he is getting enough calories. Patient denies symptoms of heartburn, dysphagia.? Denies black stools or rectal bleeding. Patient denies loud snoring or sleep apnea - has difficulty sleeping due to neuropathy Denies problems with anesthesia in the past. Denies being on chronic anticoagulation. Quit drinking 3 months ago Denies tobacco use Patient denies known family history of colon polyps, colon cancer or other GI malignancies. 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 05/27/25 COLONOSCOPY SHOWED: Colonoscopy Findings: Two medium sized polyps were removed Random biopsies were obtained from right and left colon to check for microscopic colitis. Moderate diverticulosis seen throughout the entire colon. Small hemorrhoids on retroflexed exam. Plan: Repeat Colonoscopy in 3-5 years if polyps are adenomatous and due to history of adenomatous colon polyps.? 2017 and a medium sized tubular adenoma was removed from the left colon.? Diverticulosis was detected.? Repeat colonoscopy was advised in 5 years.? IMAGING STUDIES:??09/2023 ABD US SHOWED: 1. The pancreas appears atrophic with calcifications throughout the pancreas. The pancreatic duct measures 1.2 cm in diameter. 2. The proximal common duct is normal in size. The distal common duct is mildly dilated measuring 0.8 cm in diameter. BARIUM SWALLOW SHOWED: 1. 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 Consistent pooling in the piriform sinuses and vallecula. 2. Small amount of glottic/subglottic aspiration noted. 3. Mildly disorganized esophageal peristalsis. 4. Incomplete evaluation of the stomach, as detailed. Would definitely consider correlating with EGD. 06/01/[address] SCAN PERFORMED AT [facility]: Diffuse pancreatic calcifications with pancreatic atrophy.? Pancreatic duct dilated to 6 mm - likely due to pancreatic atrophy For least catheter in the urinary bladder Bilateral pleural effusion, ascites and diffuse anasarca.? L3-L4 compression fracture - age undetermined ENDOSCOPIC STUDIES: 11/25/23 EGD SHOWED: Esophagus: GE junction at 40 cms. Mildly tortuous esophagus with decreased contractions without stricture or ring. Esophageal balloon dilation of distal esophagus was performed with a 20 mm (60F) x 60 seconds Esophageal balloon dilation of proximal esophagus was performed with an 18 mm (54 F) x 60 seconds Stomach: Mosaic appearance of the stomach consistent with mild portal gastropathy. Moderate gastric antral erythema - biopsies were obtained from the antrum. Grade 2 flap valve and no gastric varices noted on retroflexed examination of the cardia. Impression and Post Procedure Diagnosis: Endoscopy Findings: ESOPHAGUS: Mildly tortuous esophagus. Esophageal balloon dilation was performed. STOMACH: Mosaic appearance of the stomach consistent with mild portal gastropathy. Moderate diffuse gastric erythema - biopsies were obtained from the antrum. Plan: Pt has a FU appointment on 12/01/[address] Estevez. BIOPSIES SHOWED: Stomach, antrum, biopsy: Antral-type mucosa with mild chronic inactive inflammation and focal intestinal metaplasia; negative for dysplasia; no Helicobacter organisms seen 03/25/23 COLONOSCOPY SHOWED: Two medium sized polyps removed Moderate diverticulosis seen in the entire colon Plan: Repeat Colonoscopy interval based on path results - in 2 years if polyps are adenomatous and to check polypectomy site at the hepatic flexure. 03/02/22 Pt had an EUS at [facility] [place] Mc which showed: Distended gallbladder, and normal liver panel time a with normal-sized intrahepatic ducts and mid CBD. Dilated pancreatic duct in head, smoothly transitioning to midbody. No stones noted within the pancreatic duct. Atrophic pancreatic duct with calcifications within the side branches, no discrete masses found in the pancreatic parenchyma. Multiple tortuous blood vessels noted in the lesser sac region close to the splenic vein. Patient was advised to take frequent small meals and continue Creon and refrain from EtOH use. Of note colonoscopy was attempted after EUS in terminated due to poor prep. PAST GI HISTORY BY REVIEW OF MEDICAL RECORDS: 12/14/20 pt was seen by Dr. Silvestre for anemia: 64 years old male with PMH of CAD post CABG, diabetes on insulin, HLD, neuropathy, alcohol abuse who I am seeing for assessment for anemia,He actually presents with worsening left big toe ulcer with increased warmth, swelling, erythema and tenderness around the area with drainage. He does have peripheral neuropathy at baseline as well. part of work up revealed anemia He denies hematuria, no melena, or rectal bleeding. He has no GERd, dysphagia, weight loss or fevers. he said he had EGD and colonoscopy mayb 5-6 yrs ago, results unknown Imaging suggestive of osteomyelitis. 1/ Macrocytic anemia, maybe due to diet, or chronic anemia from osteomyelitis or bone marrow disease, no overt GI blood loss PLAN: 1/ priority right now is treatment of the osteomyelitis, would defer EGD and colonoscopy to either early outpatient or after few days of ABX therapy. Discussed with primary team. Meantime PPI e.g pantoprazole 40 mg OD and fluid/vol resuscitate, if clinical status changes and he has overt GI bleeding then can change plan according [facility] Medical History Ascites Chronic kidney disease GERD (gastroesophageal reflux disease) Macrocytic anemia Chronic diabetic ulcer of right foot determined by examination Anemia Osteomyelitis Hearing difficulty Neuropathy Cataracts, bilateral Bunion Heart attack CAD (coronary artery disease) High cholesterol Diabetes Hypertension Surgical History History of esophagogastroduodenoscopy (EGD) H/O colonoscopy Hx of heart artery stent Hx of cystoscopy Hx of endoscopy History of bunionectomy of right great toe H/O rotator cuff surgery H/O heart bypass surgery Family History Sister HTN (hypertension) Sister HTN (hypertension) Father Heart disease Heart attack Mother Kidney failure Social History Household Members: Significant Other Housing: Condominium Are you a primary interior plant caretaker to a significant other at home: No Do you presently have visiting nurse or other home services: No Alcohol intake: current Alcohol intake frequency: former alcohol drinker Alcohol type: beer Patient Tobacco Use Status: Former Tobacco user Tobacco use type: Cigarette Years Smoked: 15 e-Cigarette/Vaping Use: Never Used Substance Use Type: Marijuana service: No Current occupational status: unemployed Cognitive needs: No Hearing needs: Yes Vision needs: No Review of Systems Const All systems reviewed & are unremarkable except as noted in HPI and below Physical Exam Vital Signs: Last Vital Signs Pulse 69 07/11/25 07:14 BP 156/68 H 07/11/25 07:14 BMI result Body Mass Index 24.3 Const General: healthy appearing and no acute distress Nutritional Appearance: average body habitus Orientation/consciousness: patient oriented x3 Limitations: no limitations HEENT Head: Yes normal to inspection Ears: hearing grossly normal bilaterally Mouth: Normal oral and palatal mucosa present Eyes Sclerae: sclerae normal Pupils: Equal, round and reactive pupils present Neck Neck: Yes normal visual inspection Chest Chest palpation & inspection: normal inspection of the chest Resp Effort & Inspection: normal respiratory effort Auscultation: clear to auscultation bilaterally Cardio Palpation: normal PMI Rate: regular rate Rhythm: regular rhythm Heart sounds: S1 normal heart sound present, S2 normal heart sound present and no murmurs GI Palpation (GI): Soft to palpation, nontender and No hepatosplenomegaly present Auscultation: normal bowel sounds Rectal Exam - Male: Yes deferred Skin General skin exam: no rashes or lesions noted Neuro General: patient oriented x3, gait normal and moves all extremities Cranial nerves: Yes Equal, round and reactive pupils present Psych Appearance: grossly normal Mental Status: mental status grossly normal Assessment & Plan Assessment & Plan (1) Dysphagia, pharyngoesophageal phase: Code(s): R13.14 - Dysphagia, pharyngoesophageal phase Category: Medical (2) Cricopharyngeal achalasia: Code(s): K22.0 - Achalasia of cardia Category: Medical (3) Chronic alcoholic pancreatitis: Code(s): K86.0 - Alcohol-induced chronic pancreatitis Category: Medical (4) Alcoholic cirrhosis of liver with ascites: Code(s): K70.31 - Alcoholic cirrhosis of liver with ascites Category: Medical (5) Diarrhea: Code(s): R19.7 - Diarrhea, unspecified Category: Medical (6) Abnormal MRI of abdomen: Code(s): R93.5 - Abnormal findings on diagnostic imaging of other abdominal regions, including retroperitoneum Category: Medical Plan 69 YM with poorly controlled DM complicated by neuropathy and nephropathy, cardiomyopathy, ESLD, chronic calcific pancreatitis followed in GI for weight loss despite good appetite and adequate p.o. intake. Patient has decompensated cirrhosis complicated by ascites and hepatic encephalopathy - had mild ascites on physical exam. Patient has a history of acute on chronic pancreatitis requiring hospitalization in past. Pt's weight loss is likely a combination of uncontrolled DM and malabsorption due to chronic calcific pancreatitis. Pt is also at increased risk for Pancreatic Cancer (due to chronic pancreatitis). I will check lab and stool tests for malabsorption.? Patient was advised to start pancreatic enzymes with meals and monitor his weight. He needs better control of his diabetes - he would benefit from referral to Endocrinology. 03/02/22 Pt had an EUS at [facility] [place] Mc which showed: Distended gallbladder, and normal liver panel time a with normal-sized intrahepatic ducts and mid CBD. Dilated pancreatic duct in head, smoothly transitioning to normal size in midbody. No stones noted within the pancreatic duct. Atrophic pancreatic duct with calcifications within the side branches, no discrete masses found in the pancreatic parenchyma. Multiple tortuous blood vessels noted in the lesser sac region close to the splenic vein. Patient was advised to take frequent small meals and continue Creon and refrain from EtOH use. Of note colonoscopy was attempted after EUS and terminated due to poor prep. 03/25/2023 colonoscopy was performed in findings as noted above 05/26/23 Has diarrhea alternating with constipation Intermittent dysphagia associated with intake of solids - with every meal for the past 6 months, Has a good appetite and wt gain of 40 lbs over the past year. Patient advised to schedule a barium swallow for evaluation of dysphagia. MELD score is 12 11/24/23 Pt complains of dysphagia to solids for the past 6 months Barium swallow showed moderate to severe cricopharyngeal achalasia and incomplete evaluation of the stomach Pt advised further evaluation with EGD with esophageal balloon dilation - scheduled on 11/25/23. 12/01/23 Noted a slight sore throat for a few days after EGD Denies any change in dysphagia Biopsy results reviewed - gastric metaplasia and advised repeat EGD in 3 years. Pt was offered referreal to ENT for cricopharyngeal myotomy versus Botox injection. Patient would prefer to monitor his symptoms for now He was advised to contact my office if he noted worsening dysphagia symptoms 09/13/24 Advised to increase Creon to 2 pills with every meal to see if diarrhea improves 03/14/25 Diarrhea has improved after he increased the dose of Creon - denies nocturnal diarrhea Notes increased diarrhea when he takes fatty foods. Spironolactone was discontinued by Nephrology and notes increase leg edema Denies an increase in abd distension Patient was advised to schedule a colonoscopy for follow-up of colon polyps - performed on 05/27/25. Abd US for HCC surveillance. 05/10/25 ABD US SHOWED: The appearance of the liver suggests fatty infiltration. There is no intrahepatic bile duct dilatation. The common duct is 3.5 mm in diameter. The gallbladder is normal. There is no sonographic Morales sign. The main portal vein is antegrade. No ascites. IMPRESSION: 1. Hepatic steatosis 07/11/25 Diagnosed with kidney disease and sees Dr Celaya and being listed for renal transplant and anticipate starting dialysis over the next 6 to 12 months. Getting erythropoietin injections for anemia Diarrhea has improved after he increased the dose of Creon - denies nocturnal diarrhea Notes increased diarrhea when he takes fatty foods. Pt advised to schedule an Abd MRI (without contrast) for FU of dilated PD on past MRI scan FU in 4 months - scheduled 12/12/25 Orders: Orders Complete Blood Count no Diff Today K70.31 - Alcoholic cirrhosis of liver with ascites, K86.0 - Alcohol-induced chronic pancreatitis Creatinine Today K70.31 - Alcoholic cirrhosis of liver with ascites, K86.0 - Alcohol-induced chronic pancreatitis Liver Fibrosis Pnl Today K70.31 - Alcoholic cirrhosis of liver with ascites, K86.0 - Alcohol-induced chronic pancreatitis Carbohydrate Antigen 19-9 Today K70.31 - Alcoholic cirrhosis of liver with ascites, K86.0 - Alcohol-induced chronic pancreatitis Blood Urea Nitrogen Today K70.31 - Alcoholic cirrhosis of liver with ascites, K86.0 - Alcohol-induced chronic pancreatitis Carcinoembryonic Antigen Today K70.31 - Alcoholic cirrhosis of liver with ascites, K86.0 - Alcohol-induced chronic pancreatitis MR abdomen wo con Today R93.5 - Abnormal findings on diagnostic imaging of other abdominal regions, including retroperitoneum Coding Level of Care Code Est Pt Level 4 (81603) Diagnoses Dysphagia, pharyngoesophageal phase R13.14 Cricopharyngeal achalasia K22.0 Chronic alcoholic pancreatitis K86.0 Alcoholic cirrhosis of liver with ascites K70.31 Diarrhea R19.7 Abnormal MRI of abdomen R93.5 Time Spent (min) 24
== END 2025-07-11 07:47 | disposition home or self-care (01) ==
LOC: HO.HGI 07:06
PROVIDERS: PCP Internal Medicine; Visit Provider Internal Medicine Gastroenterology
DX: R13.14 Dysphagia, pharyngoesophageal phase (principal); K22.0 Achalasia of cardia; K86.0 Alcohol-induced chronic pancreatitis; K70.31 Alcoholic cirrhosis of liver with ascites; R19.7 Diarrhea, unspecified; R93.5 Abnormal findings on diagnostic imaging of other abdominal regions, including retroperitoneum
CPT/HCPCS: 99214

== ENCOUNTER → 2025-07-11 07:05 | Outpatient (BNVA) | payer MEDICARE, OTHER, SELFPAY | PROVIDERS: PCP Internal Medicine; Visit Provider Internal Medicine Gastroenterology | DX: R13.14 Dysphagia, pharyngoesophageal phase (principal); R19.7 Diarrhea, unspecified; K70.31 Alcoholic cirrhosis of liver with ascites; F10.11 Alcohol abuse, in remission; K86.0 Alcohol-induced chronic pancreatitis; K22.0 Achalasia of cardia; Z87.891 Personal history of nicotine dependence | CPT/HCPCS: 99212 ==